=== PATIENT | male | born 1960 | race Caucasian/White ===

== ENCOUNTER 2024-04-18 07:43 | Outpatient (OUT) | payer MEDICARE, OTHER, SELFPAY ==
[2024-04-18 09:24] LABS: Prostate Specific Antigen Scrn 0.93 ng/mL (<=4.00)
== END 2024-04-18 07:44 | disposition home or self-care (01) ==
LOC: LAB 04-19 07:43
PROVIDERS: PCP Internal Medicine; Visit Provider Internal Medicine
DX: Z12.5 Encounter for screening for malignant neoplasm of prostate (principal)
CPT/HCPCS: 36415; G0103

== ENCOUNTER 2024-05-18 10:04 | Outpatient (OUT) | payer MEDICARE, OTHER, SELFPAY ==
--- NOTE | 2024-05-18 10:07 | CT_ITS ---
[address] [address] Patient Name: MIGUEL VENEGAS MRN: [id number] date: 1960 Sex: M Assigned Patient Location: CT Current Patient Location: Accession/Order Number: [id number] Exam Date: 05/18/2024 10:15 Report Date: 05/19/2024 11:27 At the request of: [age] YO Procedure: CT lung screening low-dose EXAMINATION: CT lung screening low-dose HISTORY: Nicotine Dependence F17.210 COMPARISON: CT lung cancer screening 04/24/2023 TECHNIQUE: Axial, Coronal, and Sagittal images were created without the administration of IV contrast material. Dose reduction techniques were achieved by using automated exposure control and/or adjustment of mA and/or kV according to patient size and/or use of iterative reconstruction technique. FINDINGS: LUNGS: No visible pulmonary disease. Stable apical pleural scarring. No suspicious nodules. PLEURA: No mass, effusion, or pneumothorax. VASCULATURE: No abnormality. ANAMIKA: No mass or pathologic adenopathy. MEDIASTINUM: No mass or pathologic adenopathy. CARDIAC: No enlargement, pericardial thickening, or pericardial effusion. Coronary Artery calcifications: AORTA: No aneurysm or dissection. CHEST WALL: No mass or axillary adenopathy BONES: No bone lesion or fracture. LIMITED ABDOMEN: No suspicious findings. Limited images of the upper abdomen. OTHER: Negative. CT/CT lung screening low-dose IMPRESSION: 1. Lung-RADS Category 1 Negative. No nodules and definitely benign nodules. Continue annual screening with LDCT in 12 months. Electronically authenticated by: DRAGAN PORTILLO Date: 05/19/2024 11:27
--- OUTSIDE RECORDS SUMMARY | 2024-05-18 10:22 | XMS_ITS | CCD ---
Author Organization [facility] Care Team Providers Care Environmental Projects Advisor Name Role Phone HUGH BUSCH Admitting Unavailable HUGH BUSCH Attending Unavailable WANDY MAGANA Referring Unavailable JERSEY WHITTAKER Primary Care Unavailable [place] Procedure Practitioner Unavailab HUGH Morgan Surgeon Unavailable UGO, ALISON Admitting Unavailable PANFILO, JERSEY Primary Care Unavailable SELF, REFERRED Referring Unavailable ADOLFO LEVINE Attending Unavailable PANFILO, JERSEY Primary Care Physician Panfilo, [place] Unavailable PANFILO, DR LAYNE Admitting Unavailable BALL, DR LAYNE Attending Unavailable BALL, DR LAYNE Consulting Unavailable BALL, DR LAYNE Primary Care Unavailable ZIEBER, DR DRAGAN Dobson Consulting Unavailable NILL ., DR HOGAN Attending Unavailable ZIEBER, DR DRAGAN Dobson Consulting Unavailable BALL, DR LAYNE Primary Care Unavailable NILL ., DR HOGAN Admitting Unavailable NILL ., DR HOGAN Consulting Unavailable BOOKER, MATTHEW Consulting Unavailable REQUEST, DR HANSEN LISTED Admitting Unavaila ble REQUEST, DR HANSEN LISTED Attending Unavaila ble BALL, DR LAYNE Consulting Unavailable BALL, DR LAYNE Primary Care Unavailable BALL, DR LAYNE Attending Unavailable BALL, DR LAYNE Consulting Unavailable BALL, DR LAYNE Primary Care Unavailable BALL, DR LAYNE Admitting Unavailable NILL ., DR HOGAN Consulting Unavailable NILL ., DR HOGAN Admitting Unavailable BALL, DR LAYNE Primary Care Unavailable NILL ., DR HOGAN Attending Unavailable AGUBOSIM, MARQUISE Consulting Unavailable BRIE, TIN Consulting Unavailable LANGENBERG, TWILA Consulting Unavailable Benson, Stephy Unavailable Allergies Allergy Classification Reported Allergen(s) Allergy Type Date of Onset Reaction(s) Facility (1 source) patient allergy list reviewed by nurse or physicia Propensity to adverse reactions 4 Comment:Done [employer] Other Medications Current Medications Medication Drug Class(es) Dates Sig (Normalized) Sig (Original) amoxicillin 875 mg / clavulanate 125 mg oral tablet (2 sources) Penicillin-class Antibacterial Start: 02-19-2023 take 1 tablet by mouth every twelve hours Amoxicillin-Pot Clavulanate 875-125 MG 1 tablet Orally every 12 hrs for 7 Jan, Active doxycycline hyclate 100 mg oral capsule (2 sources) Tetracycline-class Drug Start: 02-13-2023 take 1 capsule by mouth twice daily Doxycycline Hyclate 100 MG 1 capsule Orally twice daily for 7 days Jan, Active [place] (No Known Home Meds) (1 source) Start: 04-15-2024 [place] (No Known Home Meds) Active April 15, 2024 12:00am Completed/Discontinued Medications Medication Drug Class(es) Dates Sig (Normalized) Sig (Original) tamsulosin hydrochloride 0.4 mg oral capsule (3 sources) alpha-Adrenergic [place] Start: 04-13-2024 End: 04-15-2024 take 0.4 mg by mouth once daily Tamsulosin Discontinued 0.4 MG PO Daily April 13, 2024 12:00am April 15, 2024 11:05am take 1 capsule by mo ut every twenty-four hours Tamsulosin HCl 0.4 MG 1 capsule Orally Once a day Active Problems Active Problems Problem Classification Problem Date Documented Da te Episodic/Chronic Abdominal hernia (4 sources) Ventral incisional hernia; Translations: [Incisional hernia] 04-25-2020 Episodic Acute posthemorrhagic anemia (4 sources) Acute posthemorrhagic anemia; Translations: [Acute posthemorrhagic anemia] 04-25-2020 Episodic Coagulation and hemorrhagic disorders (4 sources) Protein C deficiency disease; 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 Chronic Diverticulosis and diverticulitis (1 source) Diverticulosis of large intestine without perforation or abscess without bleeding; Translations: [DVRTCLOS LG INT NO PERF/ABSC W/O BL] Onset: 07-25-2022 Chronic Hyperplasia of prostate (8 sources) Nocturia due to benign prostatic hypertrophy; Translations: [Lower urinary tract symptoms due to benign prostatic hypertrophy] Onset: 09-02-2017 04-24-2020 Chronic Immunizations and screening for infectious disease (1 source) Vaccination given; Translations: [Encounter for immunization] Episodic Miscellaneous mental health disorders (1 source) Psychosexual dysfunction associated with inhibited sexual excitement; Translations: [Psychosexual dysfunction with inhibited sexual excitement] Onset: 04-12-2015 Chronic Osteoarthritis (3 sources) Bilateral arthritis of knees; Translations: [Bilateral primary osteoarthritis of knee] Chronic Other aftercare (1 source) Long-term current use of drug therapy; Translations: [Other intermediate card tender (current) drug therapy] Episodic Other gastrointestinal disorders (3 sources) Abnormal feces; Translations: [Other fecal abnormalities] Episodic Other male genital disorders (1 source) Impotence of organic origin; Translations: [Male erectile dysfunction, unspecified] Onset: 04-12-2015 Chronic Other non-traumatic joint disorders (1 source) Arthritis of knee 04-24-2020 Chronic Other nutritional; endocrine; and metabolic disorders (1 source) Body mass index 25-29 - overweight 06-04-2022 Episodic Other nutritional; endocrine; and metabolic disorders (1 source) Overweight; Translations: [Overweight] Episodic Other screening for suspected conditions (not mental disorders or infectious disease) (2 sources) Stool DNA-based colorectal cancer screening positive; Translations: [Encounter for screening for malignant neoplasm of prostate] 06-04-2022 Episodic Other skin disorders (1 source) Hypertrophic condition of skin; Translations: [Other hypertrophic disorders of the skin] Episodic Peripheral and visceral atherosclerosis (1 source) Acute vascular insufficiency of intestine 04-24-2020 Chronic Peripheral and visceral atherosclerosis (3 sources) Acute mesenteric arterial occlusion; Translations: [Acute vascular insufficiency of intestine] Onset: 09-30-2019 04-24-2020 Episodic Phlebitis; thrombophlebitis and thromboembolism (7 sources) Portal vein thrombosis; Translations: [Splenic vein thrombosis] Onset: 05-30-2020 04-24-2020 Episodic Skin and subcutaneous tissue infections (4 sources) Localized infection of skin AND/OR subcutaneous tissue; Translations: [Local infection of the skin and subcutaneous tissue, unspecified] Episodic Spondylosis; intervertebral disc disorders; other back problems (6 sources) Lumbar spondylosis; Translations: [Spondylosis without myelopathy or radiculopathy, lumbar region] 04-24-2020 Chronic Substance-related disorders (14 sources) Nicotine dependence; Translations: [Nicotine dependence, cigarettes, uncomplicated] Onset: 07-25-2022 04-25-2020 Chronic Unclassified (1 source) CONTACT W/AND (SUSP) EXPOS COVID-19; Translations: [CONTACT W/AND (SUSP) EXPOS COVID-19] Onset: 07-22-2022 Past or Other Problems Problem Classification Problem Date Documented Da te Episodic/Chronic Fluid and electrolyte disorders (1 source) Hypo-osmolality and or hyponatremia; Translations: [Hypo-osmolality and hyponatremia] Onset: 03-12-2019 Episodic Other and unspecified benign neoplasm (1 source) Polyp of colon; Translations: [POLYP OF COLON] Onset: 07-25-2022 Episodic Other connective tissue disease (1 source) Plantar fascial fibromatosis; Translations: [Plantar fascial fibromatosis] Onset: 09-02-2017 Episodic Other gastrointestinal disorders (5 sources) Other fecal abnormalities; Translations: [OTHER FECAL ABNORMALITIES] Onset: 07-22-2022 Episodic Other lower respiratory disease (1 source) Wheezing; Translations: [WHEEZING] Onset: 07-22-2022 Episodic Other non-traumatic joint disorders (1 source) Arthralgia of the lower leg; Translations: [Pain in right knee] Onset: 01-11-2018 Episodic Other skin disorders (2 sources) Sebaceous cyst; Translations: [Sebaceous cyst] Onset: 01-11-2018 Episodic Residual codes; unclassified (2 sources) Tobacco user; Translations: [Nondependent tobacco use disorder] Onset: 07-06-2015 Episodic Residual codes; unclassified (1 source) Requires influenza virus vaccination; Translations: [Need for prophylactic vaccination and inoculation, Influenza] Onset: 09-02-2017 Episodic Sprains and strains (1 source) Sprain of medial collateral ligament of knee; Translations: [Sprain of medial collateral ligament of right knee, initial encounter] Onset: 01-11-2018 Episodic Results Test Name Value Interpretation Reference Range Facility CT LUNG CANCER SCREENINGon 0 04-24-2023 CT LUNG CANCER SCREENING EXAMINATION: CT LUNG CANCER SCREENING HISTORY: Tobacco dependence caused by cigarettes COMPARISON: No relevant comparison available. TECHNIQUE: Axial, Coronal, and Sagittal images were created without the administration of IV contrast material. Dose reduction techniques were achieved by using automated exposure control and/or adjustment of mA and/or kV according to patient size and/or use of iterative reconstruction technique. FINDINGS: LUNGS: No visible pulmonary disease. PLEURA: Mild biapical pleural scarring. No pneumothorax or pleural effusion. VASCULATURE: No abnormality. ANAMIKA: No mass or pathologic adenopathy. MEDIASTINUM: No mass or pathologic adenopathy. CARDIAC: No enlargement, pericardial thickening, or significant calcification. AORTA: No aneurysm or dissection. CHEST WALL: No mass or axillary adenopathy BONES: No bone lesion or fracture. LIMITED ABDOMEN: No suspicious findings. Limited images of the upper abdomen. OTHER: Negative. IMPRESSION: 1. Lung-RADS Category 1 Negative. No nodules and definitely benign nodules. Continue annual screening with LDCT in 12 months. Electronically authenticated by: DRAGAN PORTILLO Date: 2023-04-24 10:47 Normal [facility] CBC AUTO DIFFon 04-16-2023 BASO # 0.0 103/ul Normal 0.0-0.1 [facility] Comment on above: Performed By: #### D ATCBC #### [facility] [address] [place] [address] Dr. Mayra Zuluaga Basophils/100 WBC (Bld) 0.6 % Normal 0.2-2.0 [facility] Comment on above: Performed By: #### D ATCBC #### [facility] [address] [place] [address] Dr. Mayra Zuluaga EO # 0.1 103/ul Normal 0.0-0.7 [facility] Comment on above: Performed By: #### D ATCBC #### [facility] [address] [place] [address] Dr. Mayra Zuluaga Eosinophils/100 WBC (Bld) 2.1 % Normal 0.9-7.0 [facility] Comment on above: Performed By: #### D ATCBC #### [facility] [address] [address] [address] Mayra Zuluaga Erythrocyte distribution width (RBC) [Ratio] 13.2 % Normal 11.0-15.0 [facility] Comment on above: Performed By: #### D ATCBC #### [facility] [address] [place] [address] Dr. Mayra Zuluaga Hematocrit (Bld) [Volume fraction] 45.2 % Normal 42.0-54.0 [facility] Comment on above: Performed By: #### D ATCBC #### [facility] [address] [place] [address] Dr. Mayra Zuluaga Hemoglobin (Bld) [Mass/Vol] 15.0 g/dL Normal 14.0-18.0 [facility] Comment on above: Performed By: #### D ATCBC #### [facility] [address] [place] [address] Dr. Mayra Zuluaga IG # 0.02 10e3/ul Normal 0.00-0.03 [facility] Comment on above: Performed By: #### D ATCBC #### [facility] [address] [address] [address] Mayra Zuluaga IG % 0.3 % Normal 0.0-0.5 [facility] Comment on above: Performed By: #### D ATCBC #### [facility] [address] [place] [address] Dr. Mayra Zuluaga LYMPH # 2.0 103/ul Normal 1.2-3.8 [facility] Comment on above: Performed By: #### D ATCBC #### [facility] [address] [place] [address] Dr. Mayra Zuluaga Lymphocytes/100 WBC (Bld) 32.3 % Normal 20.5-60.0 [facility] Comment on above: Performed By: #### D ATCBC #### [facility] [address] [place] [address] Dr. Mayra Zuluaga MCH (RBC) [Entitic mass] 31.0 pg Normal 25.9-34.0 [facility] Comment on above: Performed By: #### D ATCBC #### [facility] [address] [place] [address] Dr. Mayra Zuluaga MCHC (RBC) [Mass/Vol] 33.2 g/dL Normal 29.9-35.2 [facility] Comment on above: Performed By: #### D ATCBC #### [facility] [address] [place] [address] Dr. Mayra Zuluaga MCV (RBC) [Entitic vol] 93.4 fL Normal 80.0-94.0 [facility] Comment on above: Performed By: #### D ATCBC #### [facility] [address] [place], [place] [id number] Dr. Mayra Zuluaga MONO # 0.9 103/ul Critically high 0.3-0.8 [facility] Comment on above: Performed By: #### D ATCBC #### [facility] [address] [place] [address] Dr. Mayra Zuluaga Monocytes/100 WBC (Bld) 13.9 % Critically high 1.7-12.0 [facility] Comment on above: Performed By: #### D ATCBC #### [facility] [address] [place] [address] Dr. Mayra Zuluaga NEUT # 3.2 103/ul Normal 1.4-6.5 [facility] Comment on above: Performed By: #### D ATCBC #### [facility] [address] [place] [address] Dr. Mayra Zuluaga Neutrophils/100 WBC (Bld) 50.8 % Normal 43.0-75.0 [facility] Comment on above: Performed By: #### D ATCBC #### [facility] [address] [place] [address] Dr. Mayra Zuluaga Platelet mean volume (Bld) [Entitic vol] 9.5 fL Normal 9.5-13.5 [facility] Comment on above: Performed By: #### D ATCBC #### [facility] [address] [place] [address] Dr. Mayra Zuluaga PLT 215 103/ul Normal 150-450 [facility] Comment on above: Performed By: #### D ATCBC #### [facility] [address] [place] [address] Dr. Mayra Zuluaga RBC 4.84 106/ul Normal 4.70-6.10 [facility] Comment on above: Performed By: #### D ATCBC #### [facility] [address] [place] [address] Dr. Mayra Zuluaga WBC 6.3 103/ul Normal 4.0-11.0 [facility] Comment on above: Performed By: #### D ATCBC #### [facility] [address] [place] [address] Dr. Mayra Zuluaga AMINATA- BMP WITH LIPIDon 2022 Anion gap [Moles/Vol] 12.5 mmol/L Normal [facility] Comment on above: Performed By: #### D ATBMP, DATPSA #### [facility] [address] [place] [address] Dr. Mayra Zuluaga Calcium [Mass/Vol] 8.6 mg/dL Normal 8.5-10.1 [facility] Comment on above: Performed By: #### D ATBMP, DATPSA #### [facility] [address] [address] [address] Mayra Zuluaga Chloride [Moles/Vol] 103 mmol/L Normal 98-107 [facility] Comment on above: Performed By: #### D ATBMP, DATPSA #### [facility] [address] [place] [address] Dr. Mayra Zuluaga Cholesterol [Mass/Vol] 178 mg/dL Normal <=200 [facility] Comment on above: Performed By: #### D ATP, DATPSA #### [facility] [address] [address] [address] Mayra Zuluaga Cholesterol in HDL [Mass/Vol] 62 mg/dL Critically high 40-60 [facility] Comment on above: Performed By: #### D ATBMP, DATPSA #### [facility] [address] [place] [address] Dr. Mayra Zuluaga Cholesterol in LDL [Mass/Vol] 108.8 mg/dL Normal [facility] Comment on above: Performed By: #### D ATBMP, DATPSA #### [facility] [address] [place] [address] Dr. Mayra Zuluaga CO2 [Moles/Vol] 28.9 mmol/L Normal 21.0-32.0 [facility] Comment on above: Performed By: #### D ATBMP, DATPSA #### [facility] [address] [place] [address] Dr. Mayra Zuluaga Creatinine [Mass/Vol] 0.84 mg/dL Normal 0.70-1.30 [facility] Comment on above: Performed By: #### D ATBMP, DATPSA #### [facility] [address] [address] [address] Mayra Zuluaga EGFR-AF KENYAN >60 Normal >=60 [facility] Comment on above: Performed By: #### D ATBMP, DATPSA #### [facility] [address] [address] [address] Mayra Zuluaga EGFR-NON AF KENYAN >60 Normal >=60 [facility] Comment on above: Performed By: #### D ATBMP, DATPSA #### [facility] [address] [address] [address] Mayra Zuluaga Glucose [Mass/Vol] 114 mg/dL Critically high 74-106 [facility] Comment on above: Performed By: #### D ATBMP, DATPSA #### [facility] [address] [address] [address] Mayra Zuluaga HDL NORMAL > or = 60 mg/dl - LO W CARDIOVASCULAR RISK <40 mg/dl - HIGH CARDIOVASCULAR RISK Normal [facility] Comment on above: Performed By: #### D ATP, DATPSA #### [facility] [address] [address] [address] Mayra Zuluaga LDL CALC NORMAL SEE BELOW Normal [facility] Comment on above: Result Comment: <100 mg/dl OPTIMAL 100 - 129 mg/dl NEAR OR ABOVE OPTIMAL 130 - 159 mg/dl BORDERLINE HIGH 160 - 189 mg/dl HIGH >190 mg/dl VERY HIGH Performed By: #### D ATBMP, DATPSA #### [facility] [address] [address] [address] Mayra Zuluaga Potassium [Moles/Vol] 4.4 mmol/L Normal 3.5-5.1 [facility] Comment on above: Performed By: #### D ATBMP, DATPSA #### [facility] [address] [address] [address] Mayra Zuluaga Sodium [Moles/Vol] 140 mmol/L Normal 136-145 [facility] Comment on above: Performed By: #### D ATBMP, DATPSA #### [facility] [address] [address] [address] Mayra Zuluaga Triglyceride [Mass/Vol] 36 mg/dL Normal <=150 [facility] Comment on above: Performed By: #### D ATBMP, DATPSA #### [facility] [address] [address] [address] Mayra Zuluaga Urea nitrogen [Mass/Vol] 12.0 mg/dL Normal 7.0-18.0 [facility] Comment on above: Performed By: #### D ATBMP, DATPSA #### [facility] [address] [address] [address] Mayra Zuluaga Urea nitrogen/Creatinine [Mass ratio] 14.3 mg/mg Normal [facility] Comment on above: Performed By: #### D ATBMP, DATPSA #### [facility] [address] [address] [address] Mayra Zuluaga VLDL CALC 7.2 mg/dL Normal [facility] Comment on above: Performed By: #### D ATBMP, DATPSA #### [facility] [address] [address] [address] Mayra Zuluaga Ambulatory Visit Summaryon 0 08-05-2022 Ambulatory Visit Summary MIGUEL BARON :1960 Visit Date:08/05/2022 Ambulatory Visit Instructions Your Care Team Attending Physician - Edison SALEH MD Primary Care Physician - JERSEY WHITTAKER DO Procedures Performed Colonoscopy (07/23/2022), Colonoscopy (03/16/2009), Excision of cyst, Exploratory laparotomy, Repair of ventral hernia. Allergies No Known Allergies No Known Medication Allergies Problems Ongoing - Any problem that you are currently receiving treatment for. Acute mesenteric arterial occlusion Acute mesenteric ischemia Anemia due to blood loss, acute Arthritis of both knees BMI 26.0-26.9,adult BPH associated with nocturia Cigarette nicotine dependence Incisional hernia of anterior abdominal wall without obstruction or gangrene Lumbar spondylosis Portal vein thrombosis Positive colorectal cancer screening using Cologuard test Protein C deficiency Splenic vein thrombosis Tobacco use Normal [facility] General Surgery Office/Clini c Noteon 08-05-2022 General Surgery Office/Clinic Note Chief Complaint colonoscopy follow up HPI Staff 13 days post colonoscopy with sigmoid and rectal polypectomies. History of Present Illness s/p colonoscopy due to positive Cologuard; had removal of hyperplastic sigmoid polyp and 1.5 cm tubular adenoma from rectum, area tattooed; doing well, small amount of blood with first bm, none since; no abdominal pain. Review of Systems ROS - Provider Constitutional: no fever, no sweats, no weight loss. Eyes: no glasses, no blurred vision, no visual loss. ENMT: no dentures, no hoarseness, no swallowing difficulties, no hearing loss, no ear infection(s), no nose bleeds. Cardiovascular: normal blood pressure, no chest pain, regular heartbeat, no heart murmur. Respiratory: no shortness of breath, no cough, no asthma, no wheezing. Gastrointestinal: no nausea, no vomiting, no diarrhea, no constipation, no blood in stool, no change in bowel habits, no abdominal pain, no hepatitis. Genitourinary: no kidney stones, no urine infection, no dysuria. Musculoskeletal: no pain, no weakness. Skin: no changing moles, no rash, no skin lumps. Neurologic: no seizures, no epilepsy, no headache. Psychiatric: no emotional or psychiatric problem. Heme/Lymph: no bleeding problems, no anemia, no blood clots, no transfusions. Allergy/Immunologic: no swollen lymph nodes/glands, no IV drug abuse. Other: Additional ROS info: Except as noted in the above Review of Systems and in the History of Present Illness, all other systems have been reviewed and are negative or noncontributory. Assessment/Plan 1. Tubular adenoma of rectum (D12.8: Benign neoplasm of rectum) plan surveillance colonoscopy in 3 years, call sooner if problems/questions. 2. Hyperplastic polyp of sigmoid colon (K63.5: Polyp of colon) see # 1 Follow-up No qualifying data available Problem List/Past Medical History Ongoing Acute mesenteric arterial occlusion Acute mesenteric ischemia Anemia due to blood loss, acute Arthritis of both knees BMI 26.0-26.9,adult BPH associated with nocturia Cigarette nicotine dependence Hyperplastic polyp of sigmoid colon Incisional hernia of anterior abdominal wall without obstruction or gangrene Lumbar spondylosis Portal vein thrombosis Positive colorectal cancer screening using Cologuard test Protein C deficiency Splenic vein thrombosis Tobacco use Tubular adenoma of rectum Historical No qualifying data Procedure/Surgical History Colonoscopy (07/23/2022), Colonoscopy (03/16/2009), Excision of cyst, Exploratory laparotomy, Repair of ventral hernia. Medications No active medications Allergies No Known Allergies No Known Medication Allergies Social History Alcohol Current, Beer, Daily, 04/25/2020 Substance Abuse - Denies Substance Abuse, 04/25/2020 Tobacco 10 or more cigarettes (1/2 pack or more)/day in last 30 days Tobacco Use:. Never Smokeless Tobacco Use:. Cigarettes, Yes, 06/04/2022 Family History Dementia: Mother. Hypertension: Mother. Primary malignant neoplasm of lung: Father. [facility] Comment on above: Result Comment: Elec tronically Signed By: DELFINO DALE, Edison Ernandez\Date and Time Signed: 08/05/22 13:21 EDT Reminderson 08-05-2022 Reminders - From: Shanna Moreno LPN To: GSN - Clinical; Sent: 08/05/2022 13:45:08 EDT Show up: 06/22/2025 07:00:00 EDT Subject: colonoscopy recall Due Date/Time: 07/23/2025 07:00:00 EDT Reminder/Recall Patient is due for colonoscopy 07/23/2025 due to history of colonic polyps. [facility] Pathology Noteon 07-25-2022 Pathology Note [id number]#1.0 0CD:127 [facility] Outside Colonoscopyon 2021 Outside Colonoscopy [id number] 0CD:127 [facility] Lab Reportson 07-22-2022 Lab Reports [id number] CD:127 [facility] RAD - MISCon 07-22-2022 RAD - MISC [id number] 0CD:127 [facility] Covid-19 PCR (CVDTB)on 06-30 SARS-CoV-2 (COVID-19) RNA DOROTHY+probe Ql (Unsp spec) Not detected Normal NOT DETECTED [facility] Comment on above: Result Comment: This test is not yet approved or cleared by the [place] FDA. When there are no FDA-approved or cleared tests available, and other criteria are met, FDA can make tests available under an emergency access mechanism called an Emergency Use Authorization (EUA). The EUA for this test is supported by the [place] of Health and Human Service's (HHS's) declaration that circumstances exist to justify the emergency use of in vitro diagnostics for the detection and/or diagnosis of the virus that causes COVID-19. This EUA will remain in effect (meaning this test can be used) for the duration of the COVID-19 declaration justifying emergency of IVDs, unless it is terminated or revoked by FDA (after which the test may no longer be used). When diagnostic testing is negative, the possibility of a false negative should be considered in the context of a patient's recent exposures and the presence of clinical signs and symptoms consistent with SARS-CoV-2. Performed By: #### [facility] #### [facility] Laboratory [address] [place] [address] Dr. Mayra Zuluaga Consent for Procedure/Surger yon 06-05-2022 Consent for Procedure/Surgery [id number] 0CD:127 [facility] Ambulatory Visit Summaryon 0 06-04-2022 Ambulatory Visit Summary MIGUEL BARON :1960 Visit Date:06/04/2022 Ambulatory Visit Instructions Your Care Team Attending Physician - Edison SALEH MD Primary Care Physician - JERSEY WHITTAKER DO Procedures Performed Colonoscopy (03/16/2009), Excision of cyst, Exploratory laparotomy, Repair of ventral hernia. Discharge Vitals Heart Rate (Peripheral) 74 Respiratory Rate 16 Blood Pressure 124/84 Height 179 cm Height 179.0 cm Weight 85.5 kg Weight 85.5 kg BMI 26.68 Allergies No Known Allergies No Known Medication Allergies Problems Ongoing - Any problem that you are currently receiving treatment for. Acute mesenteric arterial occlusion Acute mesenteric ischemia Anemia due to blood loss, acute Arthritis of both knees BMI 26.0-26.9,adult BPH associated with nocturia Cigarette nicotine dependence Incisional hernia of anterior abdominal wall without obstruction or gangrene Lumbar spondylosis Portal vein thrombosis Positive colorectal cancer screening using Cologuard test Protein C deficiency Splenic vein thrombosis [facility] Physician Referralon 022 Physician Referral [id number] 0CD:127 Normal [facility] Surgical Pathology Depar tmenton 01-30-2022 [facility] Surgical Pathology Department Name MIGUEL BARON Pathologist: DOMINGA AGRAWAL DMD Date of Procedure: 01/30/2022 Date Received: 02/03/2022 Date Reported 02/06/2022 Submitting Physician: REMIGIO MENDOZA DDS Location: [facility] Other External # FINAL DIAGNOSIS A. RIGHT SOFT PALATAL MUCOSA, INCISIONAL BIOPSY: -- MILD EPITHELIAL DYSPLASIA (MULTIPLE LEVELS EXAMINED) ICD-10/CPT: K13.21/17461 Electronically Signed Out By DOMINGA AGRAWAL DMD/IJS By the signature on this report, the individual or group listed as making the Final Interpretation/Diagnos is certifies that they have reviewed this case. Microscopic Description: The sections show a fragment of squamous mucosa notable for the presence of keratinizing dysplasia. This is characterized by hyperkeratosis with hypergranulosis, epithelial atrophy, basal cell hyperplasia, increased nuclear to cytoplasmic ratio, and nuclear hyperchromasia. These changes are largely restricted to the basal third of the epithelium. The lamina propria consists of densely collagenous fibrovascular tissue with mild chronic inflammation and no evidence of invasive carcinoma. Clinical History: The lesion was biopsied from the right soft palate where it measures 0.5 x 0.3 cm, is white, and has been present for an unknown duration. Clinical impression: Hyperkeratosis versus dysplasia. Specimens Submitted As: A: RIGHT SOFT PALATE Gross Description: Received in formalin, labeled with the patient's name and hospital number and right soft palate , is a calvin-brown soft tissue fragment measuring 0.5 x 0.3 x 0.3 cm. The apparent deep aspect is inked blue. The specimen is submitted in toto in 1 cassette. AMANDEEP jlm/02/03/2022 [facility] Department of Pathology [address] [place] [address] Normal [facility] Comment on above: Performed By: #### [facility] #### [facility] Surgical Pathology Department [address] [facility] [address] BASIC METABOLIC PANELon - Calcium [Mass/Vol] 9.6 mg/dL Normal 8.6-10.3 [facility] Comment on above: Performed By: #### 1 0054 #### [facility] [address] [place] [address], [place] Chloride [Moles/Vol] 100 mmol/L Normal 98-107 [facility] Comment on above: Performed By: #### 1 0054 #### [facility] [address] [place] [address], [place] CO2 [Moles/Vol] 25 mmol/L Normal 21-31 [facility] Comment on above: Performed By: #### 1 0054 #### [facility] [address] [place] [address], [place] Creatinine [Mass/Vol] 0.62 mg/dL Low 0.70-1.30 [facility] Comment on above: Performed By: #### 1 0054 #### [facility] [address] [place] [address], [place] GFR/1.73 sq M predicted among blacks MDRD (S/P/Bld) [Vol rate/Area] mL/min/{1.73_m2} Normal >60 [facility] Comment on above: Performed By: #### 1 0054 #### [facility] [address] [place] [address], [place] GFR/1.73 sq M predicted among non-blacks MDRD (S/P/Bld) [Vol rate/Area] mL/min/{1.73_m2} Normal >60 [facility] Comment on above: Performed By: #### 1 0054 #### [facility] [address] [facility] [place] [address], [facility] Glucose [Mass/Vol] 97 mg/dL Normal 70-100 [facility] Comment on above: Performed By: #### 1 0054 #### [facility] [address] [facility] [address], [facility] Potassium [Moles/Vol] 3.9 mmol/L Normal 3.5-5.1 [facility] Comment on above: Performed By: #### 1 0054 #### [facility] [address] [facility] [place] [address], [facility] Sodium [Moles/Vol] 131 mmol/L Low 136-145 [facility] Comment on above: Performed By: #### 1 0054 #### [facility] [address] [facility]. [address] Urea nitrogen [Mass/Vol] 5 mg/dL Low 7-25 [facility] Comment on above: Performed By: #### 1 0054 #### [facility] [address] [facility] [place] [address], [facility] CBC W/DIFFon 01-16-2020 ABS BASOPHILS 0.0 10*3/uL Normal 0.0-0.2 The [facility] Comment on above: Performed By: #### 1 0054 #### [facility] [address] [facility] [place] [address], [facility] ABS IMM GRANS 0.0 10*3/uL Normal 0.0-0.2 [facility] Comment on above: Performed By: #### 1 0054 #### [facility] [address] [place] [address], [facility] ABS NEUTROPHILS 5.5 10*3/uL Normal 1.6-7.6 The [facility] Comment on above: Performed By: #### 1 0054 #### [facility] [address] [place] [address], [facility] Basophils/100 WBC (Bld) 0.4 % Normal 0.0-1.0 [facility] Comment on above: Performed By: #### 1 0054 #### [facility] [address] [place] [address], [facility] Eosinophils (Bld) [#/Vol] 0.1 10*3/uL Normal 0.0-0.5 [facility] Comment on above: Performed By: #### 1 0054 #### [facility] [address] [place] [address], [facility] Eosinophils/100 WBC (Bld) 1.0 % Normal 0.0-6.0 [facility] Comment on above: Performed By: #### 1 0054 #### [facility] [address] Erythrocyte distribution width (RBC) [Ratio] 15.0 % Normal 11.5-15.0 [facility] Comment on above: Performed By: #### 1 0054 #### [facility] [address] Hematocrit (Bld) [Volume fraction] 41.1 % Normal 39.0-50.0 [facility] Comment on above: Performed By: #### 1 0054 #### [facility] [address] Hemoglobin (Bld) [Mass/Vol] 13.2 g/dL Normal 13.0-17.0 [facility] Comment on above: Performed By: #### 1 0054 #### [facility] [address] [place] [address], [facility] IMMATURE GRANS 0.2 % Normal 0.0-1.0 [facility] Comment on above: Performed By: #### 1 0054 #### [facility] [address] Lymphocytes (Bld) [#/Vol] 3.1 10*3/uL Normal 1.2-4.0 [facility] Comment on above: Performed By: #### 1 0054 #### [facility] [address] [place] [address], [facility] Lymphocytes/100 WBC (Bld) 31.1 % Normal 20.0-45.0 [facility] Comment on above: Performed By: #### 1 0054 #### [facility] [address] [place] [address], [facility] MCH (RBC) [Entitic mass] 27.9 pg Normal 27.0-33.0 [facility] Comment on above: Performed By: #### 1 0054 #### [facility] [address] MCHC (RBC) [Mass/Vol] 32.1 g/dL Normal 32.0-35.0 [facility] Comment on above: Performed By: #### 1 0054 #### [facility] [address] [place] [address], [facility] MCV (RBC) [Entitic vol] 86.9 fL Normal 82.0-98.0 [facility] Comment on above: Performed By: #### 1 0054 #### [facility] [address] [place] [address], [facility] Monocytes (Bld) [#/Vol] 1.2 10*3/uL High 0.1-1.0 [facility] Comment on above: Performed By: #### 1 0054 #### [facility] [address] [place] [address], [facility] MONOS 11.7 % Normal 5.0-12.0 [facility] Comment on above: Performed By: #### 1 0054 #### [facility] [address] [place] [address], [facility] Neutrophils/100 WBC (Bld) 55.6 % Normal 40.0-72.0 [facility] Comment on above: Performed By: #### 1 0054 #### [facility] [address] [facility] [place] [address], [facility] Nucleated RBC/100 WBC (Bld) [Ratio] 0 % Normal 0-0 [facility] Comment on above: Performed By: #### 1 0054 #### [facility] [address] [facility] [place] [address], [facility] PLAT CNT 296 10*3/uL Normal 150-400 [facility] Comment on above: Performed By: #### 1 0054 #### [facility] [address] [place] [address], [facility] RBC (Bld) [#/Vol] 4.73 10*6/uL Normal 4.20-5.70 The [facility] Comment on above: Performed By: #### 1 0054 #### [facility] [address] [place] [address], [facility] WBC (Bld) [#/Vol] 9.81 10*3/uL Normal 4.00-10.60 The [facility] Comment on above: Performed By: #### 1 0054 #### [address] ABDOMEN AND PELVIS W IV A ND ORAL CONTRASTon 01-16-2020 CT ABDOMEN AND PELVIS W IV AND ORAL CONTRAST [facility] Department of Radiology [address] [place] [address] ======== Patient Name: MIGUEL BARON : 1960 Sex: M Age: Race: White Pt. Location: [facility] Patient Status: E Ordered Date: 01/16/2020 12:10:00 PM Completed Date: 01/16/2020 01:41 PM Requesting Provider: ADOLFO LEVINE Attending Provider: ALISON ARIZMENDI Report Copy To: Signs & Symptoms: Abscess History: See Comments Comments: Fistula, ed abdominal ct Exam: CT ABDOMEN AND PELVIS W IV AND ORAL CONTRAST ======== CT ABDOMEN AND PELVIS W IV AND ORAL CONTRAST 01/16/2020 1:41 PM CLINICAL INDICATIONS: Abscess TECHNOLOGIST COMMENTS: original bowel surg 10-28-2019 today incision started leaking pus looking fluid QUESTION FOR RADIOLOGIST: Fistula, ed abdominal ct TECHNIQUE: CT abdomen and pelvis with intravenous contrast. Multiplanar reformats were performed. Contrast: Contrast: OMNIPAQUE 350 (LOCM), 100 milliliter, Intravenous Protocol: Axial CT images from the lung bases to the pubic symphysis were performed following the uneventful administration of intravenous contrast. COMPARISON: CT abdomen and pelvis November 05, 2019. FINDINGS: The lung bases are unremarkable. The liver, spleen, gallbladder, adrenals and pancreas appear unremarkable. The portal vein appears patent. The kidneys concentrate contrast bilaterally with no focal lesion other than a small presumed cyst in the right lower pole. Oral contrast has reached the rectum The stomach, small bowel, and appendix appear unremarkable. Scattered diverticula present in sigmoid. Wall thickening is suggested in the sigmoid colon. The bladder appears unremarkable. The prostate is enlarged measuring 6.8 cm transversely. No free air or free fluid is appreciated. The aorta is intermittently calcified but nonaneurysmal. No retroperitoneal adenopathy is seen. Increased attenuation is noted in the midline external to the anterior abdominal fascia in the region of the patient's prior midline skin incision. The study viewed at bone window shows disc space degeneration at L2-3 and L5-S1. IMPRESSION: * Increased attenuation in the subcutaneous adipose tissue at the level of the patient's midline incision may represent postop seroma or superficial abscess. * No communication with underlying bowel identified. * Wall thickening the sigmoid colon may represent sequela of diverticular disease. * Enlarged prostate. All CT scans at this facility use dose modulation, iterative reconstruction, and/or weight based dosing when appropriate to reduce radiation dose to as low as reasonably achievable Electronically signed: Jennifer Cohen. Transcribed by: [email or web address], User Resident: Electronically Signed by: JENNIFER COHEN @ 01/16/2020 02:26 PM Normal [facility] Comment on above: Order Comment: No: D o not add to previous draw Coding Summaryon 12-08-2019 Coding Summary CODING DATE: 12/08/2019 [facility] STATUS: Home PAYOR: Commercial Insurance ADMIT DX: REASON FOR VISIT DX: D50.9 Iron deficiency anemia, unspecified FINAL DX: PRINCIPAL: D50.9 Iron deficiency anemia, unspecified SECONDARY: PYMT PROC APC STAT DESCRIPTION DOCTOR NAME DATE NOTE: The code number assigned matches the documented diagnosis and / or procedure in the patient's chart. However, the narrative phrase printed from the coding software may appear abbreviated, or result in slightly different terminology. Revised Coded By: Enriqueta Hurtado Revised Date Saved: 11/22/2019 11:54 am [facility] Provider Orderson 11-18-2019 Provider Orders [id number]#[id number] Normal [facility] H&Hon 11-17-2019 Hematocrit (Bld) [Volume fraction] 28.7 % Low 34.8-51.9 [facility] Comment on above: Performed By: #### 5 [id number] #### [facility] (DEFAULT) [address] [place] [address] Hemoglobin (Bld) [Mass/Vol] 9.2 g/dL Low 11.8-17.7 [facility] Comment on above: Performed By: #### 5 [id number] #### [facility] (DEFAULT) [address] [place] [address] BASIC METABOLIC PANELon Calcium [Mass/Vol] 7.3 mg/dL Low 8.6-10.3 [facility] Comment on above: Order Comment: No: D o not add to previous draw Performed By: #### 5 6101, 76505, 35168, 75057, 02737, 92329, 37150 #### [facility] [address] [place] [address], [place] Chloride [Moles/Vol] 99 mmol/L Normal 98-107 [facility] Comment on above: Order Comment: No: D o not add to previous draw Performed By: #### 5 6101, 93119, 86955, 47997, 10382, 68690, 08551 #### [facility] [address] [place] [address], [place] CO2 [Moles/Vol] 27 mmol/L Normal 21-31 [facility] Comment on above: Order Comment: No: D o not add to previous draw Performed By: #### 5 6101, 75341, 81950, 93725, 50834, 87007, 25899 #### [facility] [address] [place] [address], [place] Creatinine [Mass/Vol] 0.38 mg/dL Low 0.70-1.30 [facility] Comment on above: Order Comment: No: D o not add to previous draw Performed By: #### 5 6101, 65925, 15832, 62577, 73595, 39168, 92429 #### [facility] [address] [place] [address], [place] GFR/1.73 sq M predicted among blacks MDRD (S/P/Bld) [Vol rate/Area] mL/min/{1.73_m2} Normal >60 [facility] Comment on above: Order Comment: No: D o not add to previous draw Performed By: #### 5 6101, 53758, 33355, 42329, 01396, 35253, 69882 #### [facility] [address] [place] [id number], [facility] GFR/1.73 sq M predicted among non-blacks MDRD (S/P/Bld) [Vol rate/Area] mL/min/{1.73_m2} Normal >60 [facility] Comment on above: Order Comment: No: D o not add to previous draw Performed By: #### 5 6101, 50945, 01190, 60964, 37942, 99280, 82506 #### [facility] [address] [place] [address], [facility] Glucose [Mass/Vol] 95 mg/dL Normal 70-100 [facility] Comment on above: Order Comment: No: D o not add to previous draw Performed By: #### 5 6101, 53154, 06537, 00053, 18444, 70401, 98214 #### [facility] [address] [place] [id number], [facility] Potassium [Moles/Vol] 3.7 mmol/L Normal 3.5-5.1 [facility] Comment on above: Order Comment: No: D o not add to previous draw Performed By: #### 5 6101, 15912, 08496, 79631, 06638, 22740, 27565 #### [facility] [address] [place] [address], [place] Sodium [Moles/Vol] 129 mmol/L Low 136-145 [facility] Comment on above: Order Comment: No: D o not add to previous draw Performed By: #### 5 6101, 05586, 46504, 67357, 07169, 06376, 25493 #### [facility] [address] [place] [address], [place] Urea nitrogen [Mass/Vol] 5 mg/dL Low 7-25 [facility] Comment on above: Order Comment: No: D o not add to previous draw Performed By: #### 5 6101, 65890, 49990, 27862, 52733, 07863, 37060 #### [facility] [address] CBC COMPLETE BLOOD COUNTon 1 01-08-2019 Erythrocyte distribution width (RBC) [Ratio] 16.0 % High 11.5-15.0 [facility] Comment on above: Order Comment: No: D o not add to previous draw Performed By: #### 5 6101, 06440, 38337, 95199, 99837, 28410, 18811 #### [facility] [address] Hematocrit (Bld) [Volume fraction] 20.8 % Low 39.0-50.0 [facility] Comment on above: Order Comment: No: D o not add to previous draw Performed By: #### 5 6101, 82584, 18591, 75585, 95756, 30279, 07534 #### [facility] [address] Hemoglobin (Bld) [Mass/Vol] 6.9 g/dL Low 13.0-17.0 [facility] Comment on above: Order Comment: No: D o not add to previous draw Performed By: #### 5 6101, 89963, 06716, 78232, 16165, 28622, 82671 #### [facility] [address] [place] [id number], [facility] MCH (RBC) [Entitic mass] 30.5 pg Normal 27.0-33.0 [facility] Comment on above: Order Comment: No: D o not add to previous draw Performed By: #### 5 6101, 95766, 73736, 07503, 39243, 30244, 27140 #### [facility] [address] [place] [address], [facility] MCHC (RBC) [Mass/Vol] 33.2 g/dL Normal 32.0-35.0 [facility] Comment on above: Order Comment: No: D o not add to previous draw Performed By: #### 5 6101, 33039, 67741, 14282, 17887, 24940, 84390 #### [facility] [address] [place] [address], [facility] MCV (RBC) [Entitic vol] 92.0 fL Normal 82.0-98.0 [facility] Comment on above: Order Comment: No: D o not add to previous draw Performed By: #### 5 6101, 94228, 63167, 86465, 43393, 49016, 21344 #### [facility] [address] [place] [address], [facility] Nucleated RBC/100 WBC (Bld) [Ratio] 0 % Normal 0-0 [facility] Comment on above: Order Comment: No: D o not add to previous draw Performed By: #### 5 6101, 80862, 27823, 86780, 40888, 75329, 56733 #### [facility] [address] [place] [address], [facility] PLAT CNT 447 10*3/uL High 150-400 [facility] Comment on above: Order Comment: No: D o not add to previous draw Performed By: #### 5 6101, 60431, 70113, 23538, 90109, 90560, 34710 #### [facility] [address] [place] [address], [facility] RBC (Bld) [#/Vol] 2.26 10*6/uL Low 4.20-5.70 The [facility] Comment on above: Order Comment: No: D o not add to previous draw Performed By: #### 5 6101, 39469, 75416, 73741, 26330, 60062, 17507 #### [facility] [address] [place] [id number], [facility] WBC (Bld) [#/Vol] 13.25 10*3/uL High 4.00-10.60 [facility] Comment on above: Order Comment: No: D o not add to previous draw Performed By: #### 5 6101, 52782, 58760, 65659, 85353, 48956, 86419 #### [facility] [address] [place] [address], [facility] MAGNESIUM BLOODon 11-07-2019 Magnesium [Mass/Vol] 1.7 mg/dL Low 1.9-2.7 [facility] Comment on above: Order Comment: No: D o not add to previous draw Performed By: #### 1 0054 #### [facility] [address] [place] [address], [facility] RBC'S 1 UNITon 11-07-2019 CROSSMATCH INTERP 1 COMP Normal [facility] Comment on above: Performed By: #### 1 0054 #### [facility] [address] [facility]. [address] PRODUCT CODE 1 E0336 Normal [facility] Comment on above: Performed By: #### 1 0054 #### [facility] [address] [facility]. [address] PRODUCT STATUS 1 PT Normal The [facility] Comment on above: Result Comment: Resu lt changed by IF on 11/07/2019 11:05. The previous value was XM. Result changed by IF on 11/08/2019 00:30. The previous value was IS. Performed By: #### 1 0054 #### [facility] [address] [facility] [place] [address], [facility] [facility] A[facility] 1 O Normal [facility] Comment on above: Performed By: #### 1 0054 #### [facility] [address] [facility] [address], [facility] UNIT ID 1 [id number] Normal [facility] Comment on above: Performed By: #### 1 0054 #### [facility] [address] [place] [address], [facility] UNIT RH 1 Positive Normal [facility] Comment on above: Performed By: #### 1 0054 #### [facility] [address] [place] [address], [facility] TYPE AND SCREENon 11-07-2019 ABO INTERPRETATION O Normal [facility] Comment on above: Performed By: #### 1 0054 #### [facility] [address] [place] [address], [facility] RH INTERPRETATION Positive Normal [facility] Comment on above: Performed By: #### 1 0054 #### [facility] [address] [place] [address], [facility] CBC COMPLETE BLOOD COUNTon 1 01-07-2019 Erythrocyte distribution width (RBC) [Ratio] 15.9 % High 11.5-15.0 [facility] Comment on above: Order Comment: No: D o not add to previous draw Performed By: #### 5 6101, 36571, 59501, 01082, 61071, 73265, 75932 #### [facility] [address] [place] [address], [facility] Hematocrit (Bld) [Volume fraction] 21.3 % Low 39.0-50.0 [facility] Comment on above: Order Comment: No: D o not add to previous draw Performed By: #### 5 6101, 69201, 78429, 60543, 54823, 46754, 07758 #### [facility] [address] [place] [address], [facility] Hemoglobin (Bld) [Mass/Vol] 7.1 g/dL Low 13.0-17.0 [facility] Comment on above: Order Comment: No: D o not add to previous draw Performed By: #### 5 6101, 69199, 77047, 29892, 13946, 88651, 86379 #### [facility] [address] [place] [address], [facility] MCH (RBC) [Entitic mass] 30.7 pg Normal 27.0-33.0 [facility] Comment on above: Order Comment: No: D o not add to previous draw Performed By: #### 5 6101, 81610, 41957, 33453, 72449, 48054, 50508 #### [facility] [address] [place] [id number], [facility] MCHC (RBC) [Mass/Vol] 33.3 g/dL Normal 32.0-35.0 [facility] Comment on above: Order Comment: No: D o not add to previous draw Performed By: #### 5 6101, 46310, 57825, 42665, 01608, 13568, 42246 #### [facility] [address] [facility] [place] [address], [facility] MCV (RBC) [Entitic vol] 92.2 fL Normal 82.0-98.0 [facility] Comment on above: Order Comment: No: D o not add to previous draw Performed By: #### 5 6101, 26170, 52525, 59563, 37314, 09345, 58262 #### [facility] [address] [facility] [place] [address], [facility] Nucleated RBC/100 WBC (Bld) [Ratio] 0 % Normal 0-0 [facility] Comment on above: Order Comment: No: D o not add to previous draw Performed By: #### 5 6101, 26758, 33516, 94150, 86498, 27946, 55589 #### [facility] [address] [place] [address], [facility] PLAT CNT 387 10*3/uL Normal 150-400 [facility] Comment on above: Order Comment: No: D o not add to previous draw Performed By: #### 5 6101, 77752, 74110, 46815, 64217, 59888, 69072 #### [facility] [address] [place] [address], [place] RBC (Bld) [#/Vol] 2.31 10*6/uL Low 4.20-5.70 [facility] Comment on above: Order Comment: No: D o not add to previous draw Performed By: #### 5 6101, 59987, 92596, 42031, 07869, 93704, 82141 #### [facility] [address] WBC (Bld) [#/Vol] 17.49 10*3/uL High 4.00-10.60 [facility] Comment on above: Order Comment: No: D o not add to previous draw Performed By: #### 5 6101, 93150, 41349, 01532, 98570, 87869, 83300 #### [facility] [address] COMP METABOLIC PANELon 11-06 Albumin [Mass/Vol] 2.0 g/dL Low 3.5-5.7 [facility] Comment on above: Order Comment: No: D o not add to previous draw Performed By: #### 5 6101, 33674, 07192, 40337, 11532, 20040, 22199 #### [facility] [address] ALKALINE PHOSPH 147 IU/L High 34-104 [facility] Comment on above: Order Comment: No: D o not add to previous draw Performed By: #### 5 6101, 42821, 21076, 59089, 29884, 90470, 35348 #### [facility] [address] ALT [Catalytic activity/Vol] 13 U/L Normal 7-52 [facility] Comment on above: Order Comment: No: D o not add to previous draw Performed By: #### 5 6101, 37612, 49636, 68222, 74628, 21087, 66832 #### [facility] [address] [place] [address], [facility] AST [Catalytic activity/Vol] 14 U/L Normal 13-39 [facility] Comment on above: Order Comment: No: D o not add to previous draw Performed By: #### 5 6101, 12908, 98689, 39439, 01553, 00976, 55551 #### [facility] [address] [place] [address], [place] Bilirubin [Mass/Vol] 1.3 mg/dL High 0.3-1.0 [facility] Comment on above: Order Comment: No: D o not add to previous draw Performed By: #### 5 6101, 56837, 48277, 10812, 91713, 36260, 87885 #### [facility] [address] [place] [address], [place] Calcium [Mass/Vol] 7.5 mg/dL Low 8.6-10.3 [facility] Comment on above: Order Comment: No: D o not add to previous draw Performed By: #### 5 6101, 51768, 06805, 59814, 36921, 24380, 37569 #### [facility] [address] [place] [address], [place] Chloride [Moles/Vol] 99 mmol/L Normal 98-107 [facility] Comment on above: Order Comment: No: D o not add to previous draw Performed By: #### 5 6101, 74430, 31321, 87772, 66124, 07960, 51023 #### [facility] [address] [place] [address], [place] CO2 [Moles/Vol] 26 mmol/L Normal 21-31 [facility] Comment on above: Order Comment: No: D o not add to previous draw Performed By: #### 5 6101, 54382, 80116, 03176, 91504, 07273, 83848 #### [facility] [address] [place] [address], [facility] Creatinine [Mass/Vol] 0.40 mg/dL Low 0.70-1.30 [facility] Comment on above: Order Comment: No: D o not add to previous draw Performed By: #### 5 6101, 04004, 33939, 88577, 36178, 66520, 97811 #### [facility] [address] [place] [address], [facility] GFR/1.73 sq M predicted among blacks MDRD (S/P/Bld) [Vol rate/Area] mL/min/{1.73_m2} Normal >60 [facility] Comment on above: Order Comment: No: D o not add to previous draw Performed By: #### 5 6101, 46819, 39315, 48611, 92741, 88683, 13048 #### [facility] [address] [facility] [place] [address], [facility] GFR/1.73 sq M predicted among non-blacks MDRD (S/P/Bld) [Vol rate/Area] mL/min/{1.73_m2} Normal >60 [facility] Comment on above: Order Comment: No: D o not add to previous draw Performed By: #### 5 6101, 74485, 49768, 69075, 99304, 02057, 56676 #### [facility] [address] [facility] [place] [address], [facility] Glucose [Mass/Vol] 86 mg/dL Normal 70-100 [facility] Comment on above: Order Comment: No: D o not add to previous draw Performed By: #### 5 6101, 85777, 33798, 32675, 76277, 72128, 76904 #### [facility] [address] [place] [address], [facility] Potassium [Moles/Vol] 4.0 mmol/L Normal 3.5-5.1 [facility] Comment on above: Order Comment: No: D o not add to previous draw Performed By: #### 5 6101, 93093, 55260, 89593, 88032, 26211, 97951 #### [facility] [address] [place] [address], [facility] Protein [Mass/Vol] 4.8 g/dL Low 6.0-8.3 [facility] Comment on above: Order Comment: No: D o not add to previous draw Performed By: #### 5 6101, 90446, 28720, 89562, 12170, 44354, 24759 #### [facility] [address] [place] [address], [facility] Sodium [Moles/Vol] 130 mmol/L Low 136-145 [facility] Comment on above: Order Comment: No: D o not add to previous draw Performed By: #### 5 6101, 31001, 32204, 12444, 67011, 93624, 71572 #### [facility] [address] [place] [address], [facility] Urea nitrogen [Mass/Vol] 5 mg/dL Low 7-25 [facility] Comment on above: Order Comment: No: D o not add to previous draw Performed By: #### 5 6101, 31480, 12949, 18644, 11284, 65456, 05341 #### [facility] [address] [place] [id number], [facility] MAGNESIUM BLOODon 11-06-2019 Magnesium [Mass/Vol] 1.8 mg/dL Low 1.9-2.7 [facility] Comment on above: Order Comment: No: D o not add to previous draw Performed By: #### 5 6101, 63255, 59191, 65753, 82598, 87996, 48639 #### [facility] [address] [place] [address], [facility] *C DIFF DNA AMPLIFICATIONon 11-05-2019 *C DIFF DNA AMPLIFICATION Clinical Report: (D) Specimen: STOOL Collected: 11/05/2019 15:19 Status: Final Last Updated: 11/05/2019 16:45 (1) No: Do not add to previous draw CDT DNA: (Final) Negative Normal [facility] Comment on above: Order Comment: No: D o not add to previous draw Performed By: #### 5 6101, 49622, 17336, 97303, 52134, 69054, 20175 #### [facility] [address] *WOUND CULTUREon 11-05-2019 *WOUND CULTURE Clinical Report: (D) Specimen/Source: WOUND/INCISION Collected: 11/05/2019 10:46 Status: Final Last Updated: 11/07/2019 11:08 (1) No: Do not add to previous draw GRAM (Final) Moderate Polys Rare Gram Positive Cocci In Pairs And Chains ISO (Final) Escherichia coli Rare Growth ISO (Final) Skin Donna Light Growth ISOLATE: Escherichia coli -- ANSLEY (mcg/ml) AMP./SULBAC (AMS) 2/1 Susceptible AMPICILLIN (AM) <=2 Susceptible AZTREONAM (AZM) <=1 Susceptible CEFAZOLIN (CZ) <=1 Susceptible CEFTRIAXONE (STEREO PLOTTER OPERATOR) <=0.5 Susceptible CIPROFLOXACIN (CIP) <=0.5 Susceptible ESBL (-/+) (ESBL) Negative GENTAMICIN (GM) <=1 Susceptible PIP/TAZO (TZP) <=2/4 Susceptible TOBRAMYCIN (TOB) 1 Susceptible TRIMETH/SULFA (SXT) <=0.5/9.5 Susceptible Normal [facility] Comment on above: Order Comment: No: D o not add to previous draw Performed By: #### 5 6101, 15558, 62611, 30970, 80866, 02440, 24328 #### [facility] [address] BASIC METABOLIC PANELon 12-0 Calcium [Mass/Vol] 7.6 mg/dL Low 8.6-10.3 [facility] Comment on above: Order Comment: No: D o not add to previous draw Performed By: #### 5 6101, 26046, 49707, 49254, 69738, 62773, 15569 #### [facility] [address] [place] [address], [facility] Chloride [Moles/Vol] 97 mmol/L Low 98-107 [facility] Comment on above: Order Comment: No: D o not add to previous draw Performed By: #### 5 6101, 96165, 36637, 66396, 79740, 84496, 55871 #### [facility] [address] [place] [address], [facility] CO2 [Moles/Vol] 26 mmol/L Normal 21-31 [facility] Comment on above: Order Comment: No: D o not add to previous draw Performed By: #### 5 6101, 39194, 21966, 45599, 97036, 45415, 99120 #### [facility] [address] [place] [address], [facility] Creatinine [Mass/Vol] 0.35 mg/dL Low 0.70-1.30 [facility] Comment on above: Order Comment: No: D o not add to previous draw Performed By: #### 5 6101, 27493, 78356, 13745, 52102, 79539, 14091 #### [facility] [address] [place] [address], [facility] GFR/1.73 sq M predicted among blacks MDRD (S/P/Bld) [Vol rate/Area] mL/min/{1.73_m2} Normal >60 [facility] Comment on above: Order Comment: No: D o not add to previous draw Performed By: #### 5 6101, 51960, 93495, 10137, 46467, 80745, 88144 #### [facility] [address] [place] [address], [facility] GFR/1.73 sq M predicted among non-blacks MDRD (S/P/Bld) [Vol rate/Area] mL/min/{1.73_m2} Normal >60 [facility] Comment on above: Order Comment: No: D o not add to previous draw Performed By: #### 5 6101, 20000, 40697, 84355, 25001, 51076, 85223 #### [facility] [address] [place] [address], [place] Glucose [Mass/Vol] 98 mg/dL Normal 70-100 [facility] Comment on above: Order Comment: No: D o not add to previous draw Performed By: #### 5 6101, 38735, 39167, 12236, 48991, 76878, 42468 #### [facility] [address] [place] [address], [place] Potassium [Moles/Vol] 3.8 mmol/L Normal 3.5-5.1 [facility] Comment on above: Order Comment: No: D o not add to previous draw Performed By: #### 5 6101, 12424, 03228, 40039, 57285, 50648, 56977 #### [facility] [address] [place] [address], [place] Sodium [Moles/Vol] 129 mmol/L Low 136-145 [facility] Comment on above: Order Comment: No: D o not add to previous draw Performed By: #### 5 6101, 74621, 78357, 25149, 80076, 73637, 23613 #### [facility] [address] [place] [address], [place] Urea nitrogen [Mass/Vol] 5 mg/dL Low 7-25 [facility] Comment on above: Order Comment: No: D o not add to previous draw Performed By: #### 5 6101, 16639, 77751, 60589, 47766, 83413, 60164 #### [facility] [address] [place] [address], [place] CBC COMPLETE BLOOD COUNTon 1 01-06-2019 Erythrocyte distribution width (RBC) [Ratio] 15.5 % High 11.5-15.0 [facility] Comment on above: Order Comment: No: D o not add to previous draw Performed By: #### 5 6101, 09895, 18741, 43348, 49059, 01808, 31722 #### [facility] [address] [place] [address], [facility] Hematocrit (Bld) [Volume fraction] 22.4 % Low 39.0-50.0 [facility] Comment on above: Order Comment: No: D o not add to previous draw Performed By: #### 5 6101, 74893, 22250, 35780, 85802, 28427, 03161 #### [facility] [address] [place] [address], [facility] Hemoglobin (Bld) [Mass/Vol] 7.5 g/dL Low 13.0-17.0 [facility] Comment on above: Order Comment: No: D o not add to previous draw Performed By: #### 5 6101, 15241, 92112, 60767, 76818, 66219, 92697 #### [facility] [address] [place] [address], [facility] MCH (RBC) [Entitic mass] 31.0 pg Normal 27.0-33.0 [facility] Comment on above: Order Comment: No: D o not add to previous draw Performed By: #### 5 6101, 90750, 25745, 60178, 70402, 52879, 26069 #### [facility] [address] [place] [address], [facility] MCHC (RBC) [Mass/Vol] 33.5 g/dL Normal 32.0-35.0 [facility] Comment on above: Order Comment: No: D o not add to previous draw Performed By: #### 5 6101, 07414, 74696, 14762, 34447, 10808, 27038 #### [facility] [address] [place] [address], [facility] MCV (RBC) [Entitic vol] 92.6 fL Normal 82.0-98.0 [facility] Comment on above: Order Comment: No: D o not add to previous draw Performed By: #### 5 6101, 43968, 00115, 00796, 03193, 10533, 20899 #### [facility] [address] [place] [address], [facility] Nucleated RBC/100 WBC (Bld) [Ratio] 0 % Normal 0-0 [facility] Comment on above: Order Comment: No: D o not add to previous draw Performed By: #### 5 6101, 28080, 72900, 57622, 22549, 47991, 34816 #### [facility] [address] [place] [address], [facility] PLAT CNT 350 10*3/uL Normal 150-400 [facility] Comment on above: Order Comment: No: D o not add to previous draw Performed By: #### 5 6101, 21224, 26325, 37986, 46300, 94996, 23876 #### [facility] [address] [place] [address], [facility] RBC (Bld) [#/Vol] 2.42 10*6/uL Low 4.20-5.70 [facility] Comment on above: Order Comment: No: D o not add to previous draw Performed By: #### 5 6101, 40086, 87224, 92947, 82830, 15399, 45737 #### [facility] [address] [place] [address], [facility] WBC (Bld) [#/Vol] 20.11 10*3/uL High 4.00-10.60 [facility] Comment on above: Order Comment: No: D o not add to previous draw Performed By: #### 5 6101, 37593, 23314, 02847, 38679, 52340, 16374 #### [address] CHEST AND LATERALon 11-05-20 CHEST AND LATERAL [facility] Department of Radiology [address] [place] [id number] ======== Patient Name: MIGUEL BARON : 1960 Sex: M Age: Race: White Pt. Location: [id number] Patient Status: I Ordered Date: 11/04/2019 1:35:00 PM Completed Date: 11/05/2019 12:40 PM Requesting Provider: HAILE WILLOUGHBY Attending Provider: HUGH BUSCH Report Copy To: Signs & Symptoms: Elevated WBC History: See Comments Comments: R/O Pneumonia Exam: CHEST AND LATERAL ======== CHEST AND LATERAL 11/05/2019 12:40 PM EST SIGNS AND SYMPTOMS: Elevated WBC TECHNOLOGIST COMMENTS: Elevated WBC, R/O Pneumonia. QUESTION FOR THE RADIOLOGIST: R/O Pneumonia PROTOCOL: AP(PA) and Lateral views were obtained. COMPARISON: Chest radiograph October 28, 2019 FINDINGS: Cardiomediastinal silhouette remains unchanged. Trachea is midline. No focal parenchymal opacity, pleural effusion or pneumothorax. No acute osseous abnormality. No subdiaphragmatic free air. Interval removal of NGT seen in the prior study. IMPRESSION: No radiographic evidence of an acute pulmonary process. Approved by:Jacinto Jones on 11/05/2019 5:55 PM EST. Ramandeep Becerray, have reviewed the images and report and concur with these findings. Electronically signed by:Ramandeep Mai. Transcribed by: [email or web address], User Resident: JACINTO JONES Electronically Signed by: RAMANDEEP MAI @ 11/07/2019 09:28 AM I personally read this/these film(s) with this resident Normal [facility] Comment on above: Order Comment: No: D o not add to previous draw CT ABDOMEN AND PELVIS W IV C ONTRASTon 11-05-2019 CT ABDOMEN AND PELVIS W IV CONTRAST [facility] Department of Radiology [address] [place] [phone] ======== Patient Name: MIGUEL BARON : 1960 Sex: M Age: Race: White Pt. Location: [address] [place] [address] Patient Status: I Ordered Date: 11/05/2019 2:25:00 PM Completed Date: 11/05/2019 03:03 PM Requesting Provider: YESSENIA ESTRADA Attending Provider: HUGH BUSCH Report Copy To: Signs & Symptoms: Abdominal Pain(specify) History: See Comments Comments: Other, r/o intra-abdominal abscess/fluid collection Exam: CT ABDOMEN AND PELVIS W IV CONTRAST ======== CT ABDOMEN AND PELVIS W IV CONTRAST 11/05/2019 3:03 PM EST SIGNS AND SYMPTOMS: Abdominal Pain(specify) TECHNOLOGIST COMMENTS: Pain at surgical site today. Pt poor historian and unable to tell what surgical procedure was done. QUESTION FOR THE RADIOLOGIST: Other, r/o intra-abdominal abscess/fluid collection PROTOCOL: Axial CT images of the abdomen/pelvis were obtained with IV contrast. CONTRAST: Contrast: OMNIPAQUE 350 (LOCM), 100 milliliter, Intravenous TECHNIQUE: Multidetector ct axial images of the abdomen and pelvis were obtained with IV contrast. Multiplanar reformats were performed and viewed on a separate workstation and reviewed to further define anatomy and possible pathology. Appropriate CT dose lowering techniques were utilized. COMPARISON: CT abdomen pelvis October 28, 2019 FINDINGS: Lower Chest: Within normal limits. ABDOMEN: Liver: Hypodense right hepatic lobe lesion on series 5 image 78, may be sequela of portal venous thrombosis seen on prior study and appeared markedly decreased in size. Bile Ducts: Normal caliber. Gallbladder: No calcified gallstones. Normal caliber wall. Pancreas: Within normal limits. Spleen: Within normal limits. Adrenals: Within normal limits. Kidneys: Within normal limits. Pelvis: Reproductive Organs: No pelvic masses. Enlargement of prostate with central prostatic calcification. Ureters: Within normal limits. Bladder: Within normal limits. Bowel: Mild diffuse gaseous and fluid distended small bowel, likely related to postoperative ileus. Rectosigmoid diverticulosis. Mesenteric Lymph Nodes: No enlarged mesenteric lymph nodes. Peritoneum: Perihepatic and perisplenic ascites. Vessels: Atherosclerotic changes throughout the abdominal aorta extending into the adjacent vessels. Nonaneurysmal. Retroperitoneum: Within normal limits. Abdominal Wall: Anterior abdominal wall incision with midline anthony. Diffuse anasarca. Bones: Degenerative changes of the lumbosacral spine. IMPRESSION: 1. Hypodense right hepatic lobe lesion, most likely sequela of portal venous thrombosis seen on prior study and appear resolved since the prior study. 2. Mild diffuse gaseous and fluid distended small bowel, likely related to postoperative ileus. 3. Small amount of perihepatic and perisplenic ascites. 4. Anterior abdominal wall incision with midline anthony. Mild anasarca. 5. Rectosigmoid diverticulosis. Approved by:Jacinto Jones on 11/05/2019 3:42 PM EST. I, Ramandeep Mai, have reviewed the images and report and concur with these findings. Electronically signed by:Ramandeep Mai. Transcribed by: [email or web address], User Resident: JACINTO JONES Electronically Signed by: RAMANDEEP MAI @ 11/06/2019 08:15 AM I personally read this/these film(s) with this resident Normal [facility] Comment on above: Order Comment: Other , r/o intra-abdominal abscess/fluid collection MAGNESIUM BLOODon 11-05-2019 Magnesium [Mass/Vol] 1.9 mg/dL Normal 1.9-2.7 [facility] Comment on above: Order Comment: No: D o not add to previous drawPt using restroom. Performed By: #### 5 6101, 22405, 71397, 84883, 44370, 58177, 74070 #### [facility] [address] [place], [place] [id number] [place] [address] URINALYSIS REFLEXon 11-05-20 19 Appearance (U) SL CLOUDY Abnormal CLEAR [facility] Comment on above: Order Comment: No: D o not add to previous drawCriteria for reflexing a culture was not met. Please call the lab [email or web address] within 24 hours of collection time if culture is needed Performed By: #### 5 6101, 27650, 86384, 94289, 29311, 71852, 67787 #### [facility] [address] [facility] [place] [address], [facility] Bilirubin [Mass/Vol] Negative Normal NEGATIVE [facility] Comment on above: Order Comment: No: D o not add to previous drawCriteria for reflexing a culture was not met. Please call the lab [id number] within 24 hours of collection time if culture is needed Performed By: #### 5 6101, 06499, 68732, 24188, 01071, 72530, 66660 #### [facility] [address] [place] [address], [facility] BLOOD Negative Normal NEGATIVE [facility] Comment on above: Order Comment: No: D o not add to previous drawCriteria for reflexing a culture was not met. Please call the lab [email or web address] within 24 hours of collection time if culture is needed Performed By: #### 5 6101, 00465, 96869, 31195, 65245, 00462, 54691 #### [facility] [address] [place] [address], [facility] Color (U) BELLA Abnormal YELLOW [facility] Comment on above: Order Comment: No: D o not add to previous drawCriteria for reflexing a culture was not met. Please call the lab [email or web address] within 24 hours of collection time if culture is needed Performed By: #### 5 6101, 54346, 06242, 75639, 73103, 74865, 18099 #### [facility] [address] [place] [address], [facility] EPIS NONE SEEN Normal FEW,OCC,NONE SEEN [facility] Comment on above: Order Comment: No: D o not add to previous drawCriteria for reflexing a culture was not met. Please call the lab [email or web address] within 24 hours of collection time if culture is needed Performed By: #### 5 6101, 30365, 37014, 76741, 67341, 34518, 36846 #### [facility] [address] [place] [address], [place] Glucose [Mass/Vol] Negative Normal NEGATIVE The [facility] Comment on above: Order Comment: No: D o not add to previous drawCriteria for reflexing a culture was not met. Please call the lab [email or web address] within 24 hours of collection time if culture is needed Performed By: #### 5 6101, 95500, 73820, 58840, 42541, 10735, 53295 #### [facility] [address] [place] [address], [place] KETONE Negative Normal NEGATIVE [facility] Comment on above: Order Comment: No: D o not add to previous drawCriteria for reflexing a culture was not met. Please call the lab [email or web address] within 24 hours of collection time if culture is needed Performed By: #### 5 6101, 37756, 50458, 37205, 36526, 67263, 06563 #### [facility] [address] [facility] [place] [address], [facility] LEUK ODALIS Negative Normal NEGATIVE [facility] Comment on above: Order Comment: No: D o not add to previous drawCriteria for reflexing a culture was not met. Please call the lab [email or web address] within 24 hours of collection time if culture is needed Performed By: #### 5 6101, 65702, 62110, 65583, 94543, 72581, 19423 #### [facility] [address] [place] [address], [facility] MUCUS THREADS MANY Abnormal NONE SEEN The [facility] Comment on above: Order Comment: No: D o not add to previous drawCriteria for reflexing a culture was not met. Please call the lab [id number] within 24 hours of collection time if culture is needed Performed By: #### 5 6101, 14458, 67302, 70379, 46547, 85143, 66222 #### [facility] [address] [place] [address], [facility] Nitrite Ql (U) Negative Normal NEGATIVE The [facility] Comment on above: Order Comment: No: D o not add to previous drawCriteria for reflexing a culture was not met. Please call the lab [email or web address] within 24 hours of collection time if culture is needed Performed By: #### 5 6101, 04879, 01265, 35583, 84147, 24387, 10511 #### [facility] [address] [facility] [place] [address], [facility] pH (Bld) 6.0 Normal 5.0-8.0 [facility] Comment on above: Order Comment: No: D o not add to previous drawCriteria for reflexing a culture was not met. Please call the lab [email or web address] within 24 hours of collection time if culture is needed Performed By: #### 5 6101, 70442, 14161, 42841, 14966, 91894, 06578 #### [facility] [address] [facility]. [place], [address] Protein (U) [Mass/Vol] Negative Normal NEGATIVE [facility] Comment on above: Order Comment: No: D o not add to previous drawCriteria for reflexing a culture was not met. Please call the lab [email or web address] within 24 hours of collection time if culture is needed Performed By: #### 5 6101, 80125, 72174, 96610, 46524, 85511, 59590 #### [facility] [address] [place], [place] [id number] [place] [address] RBC (U) [#/Vol] NONE SEEN Normal NONE SEEN The [facility] Comment on above: Order Comment: No: D o not add to previous drawCriteria for reflexing a culture was not met. Please call the lab [email or web address] within 24 hours of collection time if culture is needed Performed By: #### 5 6101, 11191, 72827, 23145, 99074, 37104, 09906 #### [facility] [address] SPEC GRAV 1.016 Normal 1.015-1.020 The [facility] Comment on above: Order Comment: No: D o not add to previous drawCriteria for reflexing a culture was not met. Please call the lab [email or web address] within 24 hours of collection time if culture is needed Performed By: #### 5 6101, 05682, 73785, 34579, 22881, 06244, 26564 #### [facility] [address] [place] [address], [facility] WBC UA 0-2 Abnormal NONE SEEN [facility] Comment on above: Order Comment: No: D o not add to previous drawCriteria for reflexing a culture was not met. Please call the lab [email or web address] within 24 hours of collection time if culture is needed Performed By: #### 5 6101, 30540, 27567, 48778, 02533, 07772, 88138 #### [facility] [address] [place], [place] [id number] [place] [address] *BLOOD CULTUREon 11-04-2019 Bacteria identified Cx Nom (Bld) Clinical Report: (D) Specimen: BLOOD CULTURE Collected: 11/04/2019 13:45 Status: Final Last Updated: 11/10/2019 07:39 CULT RES (Final) No Growth Day 5 Normal [facility] Comment on above: Performed By: #### 5 6101, 71033, 64949, 39356, 94562, 75330, 88122 #### [facility] [address] [facility]. [address] CBC W/DIFFon 11-04-2019 ABS BASOPHILS 0.0 10*3/uL Normal 0.0-0.2 [facility] Comment on above: Performed By: #### 5 6101, 24394, 35139, 84139, 47773, 06262, 31879 #### [facility] [address] [facility]. [address] ABS NEUTROPHILS 16.3 10*3/uL High 1.6-7.6 The [facility] Comment on above: Performed By: #### 5 6101, 02637, 23922, 68753, 07976, 27091, 52450 #### [facility] [address] [facility]. [address] ANISO Moderate Normal [facility] Comment on above: Performed By: #### 5 6101, 59417, 79871, 69884, 46245, 97385, 18375 #### [facility] [address] [facility]. [address] Basophils/100 WBC (Bld) 0.0 % Normal 0.0-1.0 [facility] Comment on above: Performed By: #### 5 6101, 76137, 64495, 37981, 87638, 48549, 81749 #### [facility] [address] [facility]. [address] DOHLE BODIES Slight Normal [facility] Comment on above: Performed By: #### 5 6101, 96833, 83347, 44273, 70132, 74985, 09490 #### [facility] [address] [place] [address], [facility] Eosinophils (Bld) [#/Vol] 0.0 10*3/uL Normal 0.0-0.5 [facility] Comment on above: Performed By: #### 5 6101, 42631, 84173, 34792, 94764, 64118, 16060 #### [facility] [address] [place] [address], [facility] Eosinophils/100 WBC (Bld) 0.0 % Normal 0.0-6.0 [facility] Comment on above: Performed By: #### 5 6101, 46787, 26462, 40404, 26256, 27288, 42971 #### [facility] [address] Erythrocyte distribution width (RBC) [Ratio] 15.6 % High 11.5-15.0 [facility] Comment on above: Performed By: #### 5 6101, 04757, 33316, 57020, 14979, 70233, 40378 #### [facility] [address] [place] [address], [facility] GIANT PLATELETS Present Normal The [facility] Comment on above: Performed By: #### 5 6101, 22918, 74458, 43540, 09224, 09999, 44274 #### [facility] [address] Hematocrit (Bld) [Volume fraction] 21.1 % Low 39.0-50.0 [facility] Comment on above: Performed By: #### 5 6101, 65472, 22148, 12426, 90459, 11489, 36034 #### [facility] [address] [place] [address], [facility] Hemoglobin (Bld) [Mass/Vol] 7.1 g/dL Low 13.0-17.0 [facility] Comment on above: Performed By: #### 5 6101, 11422, 98647, 03108, 59022, 53541, 64748 #### [facility] [address] Lymphocytes (Bld) [#/Vol] 0.5 10*3/uL Low 1.2-4.0 [facility] Comment on above: Performed By: #### 5 6101, 59745, 69461, 54898, 23059, 03918, 16143 #### [facility] [address] Lymphocytes/100 WBC (Bld) 2.7 % Low 20.0-45.0 [facility] Comment on above: Performed By: #### 5 6101, 80657, 36001, 34846, 46541, 14562, 61114 #### [facility] [address] [facility] [place] [address], [facility] MCH (RBC) [Entitic mass] 30.9 pg Normal 27.0-33.0 [facility] Comment on above: Performed By: #### 5 6101, 75344, 05044, 29586, 00903, 44894, 09159 #### [facility] [address] [facility] [place] [address], [facility] MCHC (RBC) [Mass/Vol] 33.6 g/dL Normal 32.0-35.0 [facility] Comment on above: Performed By: #### 5 6101, 72192, 88044, 97081, 31989, 43256, 58711 #### [facility] [address] [facility] [place] [address], [facility] MCV (RBC) [Entitic vol] 91.7 fL Normal 82.0-98.0 [facility] Comment on above: Performed By: #### 5 6101, 11942, 67081, 51355, 20617, 24048, 18155 #### [facility] [address] [facility] [place] [address], [facility] Monocytes (Bld) [#/Vol] 1.9 10*3/uL High 0.1-1.0 [facility] Comment on above: Performed By: #### 5 6101, 81375, 43172, 83240, 83288, 11281, 55310 #### [facility] [address] [facility] [place] [address], [facility] MONOS 10.1 % Normal 5.0-12.0 [facility] Comment on above: Performed By: #### 5 6101, 51537, 45836, 80551, 44722, 98998, 43260 #### [facility] [address] [facility] [place] [address], [facility] Neutrophils/100 WBC (Bld) 87.2 % High 40.0-72.0 [facility] Comment on above: Performed By: #### 5 6101, 48139, 28597, 30468, 28345, 62695, 73657 #### [facility] [address] [facility] [place] [address], [facility] Nucleated RBC/100 WBC (Bld) [Ratio] 0 % Normal 0-0 [facility] Comment on above: Performed By: #### 5 6101, 52307, 91318, 66356, 19904, 91525, 26057 #### [facility] [address] [facility] [place] [address], [facility] PLAT CNT 304 10*3/uL Normal 150-400 [facility] Comment on above: Performed By: #### 5 6101, 76575, 00865, 73414, 73703, 59063, 67385 #### [facility] [address] [place] [address], [facility] POIK Moderate Normal [facility] Comment on above: Performed By: #### 5 6101, 17662, 40701, 79489, 32505, 77461, 31295 #### [facility] [address] POLY Slight Normal [facility] Comment on above: Performed By: #### 5 6101, 73375, 42764, 04774, 09930, 11005, 25501 #### [facility] [address] [facility] [address] RBC (Bld) [#/Vol] 2.30 10*6/uL Low 4.20-5.70 The [facility] Comment on above: Performed By: #### 5 6101, 47129, 06450, 89762, 98113, 92182, 76565 #### [facility] [address] [facility]. [address] TARGET CELLS Moderate Normal [facility] Comment on above: Performed By: #### 5 6101, 02393, 37511, 75316, 66422, 44645, 45506 #### [facility] [address] [facility]. [address] TOXIC GRANULATION Moderate Normal The [facility] Comment on above: Performed By: #### 5 6101, 26999, 90613, 56463, 37376, 75022, 16196 #### [facility] [address] [facility]. [address] WBC (Bld) [#/Vol] 18.67 10*3/uL High 4.00-10.60 [facility] Comment on above: Performed By: #### 5 6101, 38398, 82459, 41327, 27557, 04022, 92055 #### [facility] [address] COMP METABOLIC PANELon 11-04 Albumin [Mass/Vol] 2.1 g/dL Low 3.5-5.7 [facility] Comment on above: Order Comment: No: D o not add to previous draw Performed By: #### 5 6101, 63448, 56849, 30453, 43250, 56196, 40700 #### [facility] [address] [place] [address], [facility] ALKALINE PHOSPH 153 IU/L High 34-104 [facility] Comment on above: Order Comment: No: D o not add to previous draw Performed By: #### 5 6101, 46731, 01372, 74358, 79522, 52533, 38438 #### [facility] [address] [place] [address], [facility] ALT [Catalytic activity/Vol] 16 U/L Normal 7-52 [facility] Comment on above: Order Comment: No: D o not add to previous draw Performed By: #### 5 6101, 15642, 53441, 09962, 33473, 88289, 73841 #### [facility] [address] [place] [address], [place] AST [Catalytic activity/Vol] 14 U/L Normal 13-39 [facility] Comment on above: Order Comment: No: D o not add to previous draw Performed By: #### 5 6101, 70019, 36380, 01952, 22764, 97094, 13050 #### [facility] [address] [place] [address], [place] Bilirubin [Mass/Vol] 1.6 mg/dL High 0.3-1.0 [facility] Comment on above: Order Comment: No: D o not add to previous draw Performed By: #### 5 6101, 97105, 88541, 30163, 43421, 37727, 31172 #### [facility] [address] [place] [address], [place] Calcium [Mass/Vol] 7.5 mg/dL Low 8.6-10.3 [facility] Comment on above: Order Comment: No: D o not add to previous draw Performed By: #### 5 6101, 47474, 15200, 59105, 68872, 25537, 90478 #### [facility] [address] [place] [address], [facility] Chloride [Moles/Vol] 97 mmol/L Low 98-107 [facility] Comment on above: Order Comment: No: D o not add to previous draw Performed By: #### 5 6101, 46207, 41639, 86438, 32292, 70425, 87049 #### [facility] [address] [place] [address], [place] CO2 [Moles/Vol] 26 mmol/L Normal 21-31 [facility] Comment on above: Order Comment: No: D o not add to previous draw Performed By: #### 5 6101, 64719, 22649, 48064, 21814, 13147, 18775 #### [facility] [address] [place] [address], [facility] Creatinine [Mass/Vol] 0.40 mg/dL Low 0.70-1.30 [facility] Comment on above: Order Comment: No: D o not add to previous draw Performed By: #### 5 6101, 73530, 38353, 98515, 77152, 22071, 73407 #### [facility] [address] [place] [address], [facility] GFR/1.73 sq M predicted among blacks MDRD (S/P/Bld) [Vol rate/Area] mL/min/{1.73_m2} Normal >60 [facility] Comment on above: Order Comment: No: D o not add to previous draw Performed By: #### 5 6101, 15251, 42653, 27948, 84413, 23340, 24398 #### [facility] [address] [place] [address], [place] GFR/1.73 sq M predicted among non-blacks MDRD (S/P/Bld) [Vol rate/Area] mL/min/{1.73_m2} Normal >60 [facility] Comment on above: Order Comment: No: D o not add to previous draw Performed By: #### 5 6101, 49753, 08582, 51626, 16292, 60958, 57277 #### [facility] [address] [place] [address], [place] Glucose [Mass/Vol] 88 mg/dL Normal 70-100 [facility] Comment on above: Order Comment: No: D o not add to previous draw Performed By: #### 5 6101, 53985, 40142, 53479, 13604, 10158, 00666 #### [facility] [address] [place] [address], [place] Potassium [Moles/Vol] 4.0 mmol/L Normal 3.5-5.1 [facility] Comment on above: Order Comment: No: D o not add to previous draw Performed By: #### 5 6101, 80256, 37647, 06654, 94028, 54806, 10277 #### [facility] [address] [place] [address], [place] Protein [Mass/Vol] 4.8 g/dL Low 6.0-8.3 [facility] Comment on above: Order Comment: No: D o not add to previous draw Performed By: #### 5 6101, 09447, 53131, 68127, 62515, 54556, 57843 #### [facility] [address] [place] [address], [place] Sodium [Moles/Vol] 128 mmol/L Low 136-145 [facility] Comment on above: Order Comment: No: D o not add to previous draw Performed By: #### 5 6101, 74447, 37783, 86936, 20471, 41427, 96473 #### [facility] [address] [place] [address], [facility] Urea nitrogen [Mass/Vol] 5 mg/dL Low 7-25 [facility] Comment on above: Order Comment: No: D o not add to previous draw Performed By: #### 5 6101, 02496, 17398, 01448, 37733, 55269, 46403 #### [facility] [address] [place] [id number], [facility] MAGNESIUM BLOODon 11-04-2019 Magnesium [Mass/Vol] 1.7 mg/dL Low 1.9-2.7 [facility] Comment on above: Order Comment: No: D o not add to previous draw Performed By: #### 5 6101, 70745, 48447, 18321, 83888, 55196, 25637 #### [facility] [address] [place] [address], [facility] PHOSPHORUS BLOODon 9 Phosphate [Mass/Vol] 2.7 mg/dL Normal 2.5-5.0 [facility] Comment on above: Order Comment: No: D o not add to previous draw Performed By: #### 5 6101, 93978, 70626, 66982, 60613, 82702, 24318 #### [facility] [address] UFH HEPARIN ASSAYon 11-04-20 19 UNFRACTIONATED HEPARIN <0.10 Critically low 0.30-0.70 [facility] Comment on above: Result Comment: Roosevelt roxaban and Apixaban will interfere with the anti Xa assay used to monitor UFH and LMWH. RESULTS CHECKED AND CALLED. ACCURATELY READ BACK BY MATTHEW MORRISON RN AT 08:02 RN STATES PATIENT IS STILL ON HEPARIN DRIP. Performed By: #### 5 6101, 29000, 94448, 09698, 18939, 74227, 86366 #### [facility] [address] [place] [address], [facility] UNFRACTIONATED HEPARIN 0.26 IU/mL Low 0.30-0.70 [facility] Comment on above: Result Comment: Jo Ann roxaban and Apixaban will interfere with the anti Xa assay used to monitor UFH and LMWH. Performed By: #### 5 6101, 98437, 22279, 56525, 31322, 02660, 48724 #### [facility] [address] APTTon 11-03-2019 aPTT Coag (Bld) [Time] 161.0 s Critically high 25.0-35.0 [facility] Comment on above: Order Comment: No: D o not add to previous draw Result Comment: ALL RESULTS MUST BE INTERPRETED WITH RESPECT TO BLOOD DRAWING ARTIFACT OR DILUTION ERROR OF ANTICOAGULANT AT THE TIME OF SAMPLING. THE APTT SHOULD NOT BE USED TO MONITOR UNFRACTIONATED HEPARIN THERAPY, THIS LABORATORY NO LONGER HAS AN ESTABLISHED THERAPEUTIC RANGE BASED ON THE APTT. IT IS RECOMMENDED THAT THE UFH - HEPARIN ASSAY (ANTI-XA ACTIVITY) BE USED FOR THIS PURPOSE. APTT RESULT REPEATED AND CONFIRMED CLINICAL SIGNIFICANCE OF THE PTT RESULT IS QUESTIONABLE IN THE PRESENCE OF HEPARIN. RN UNAVAILABLE AT 09:23 - WILL TRY AGAIN RESULTS CHECKED AND CALLED. ACCURATELY READ BACK BY DESTINEE CHAVEZ RN AT 10:25 Performed By: #### 5 6101, 26913, 10585, 55671, 50697, 54552, 21335 #### [facility] [address] [facility]. [address] BASIC METABOLIC PANELon Calcium [Mass/Vol] 7.5 mg/dL Low 8.6-10.3 [facility] Comment on above: Order Comment: No: D o not add to previous draw Performed By: #### 5 6101, 80062, 92325, 82462, 58524, 27651, 74067 #### [facility] [address] [facility] [place] [address], [facility] Chloride [Moles/Vol] 96 mmol/L Low 98-107 [facility] Comment on above: Order Comment: No: D o not add to previous draw Performed By: #### 5 6101, 45350, 19898, 92936, 70740, 17539, 19556 #### [facility] [address] [place] [address], [place] CO2 [Moles/Vol] 29 mmol/L Normal 21-31 [facility] Comment on above: Order Comment: No: D o not add to previous draw Performed By: #### 5 6101, 99072, 48540, 46410, 18731, 32416, 82728 #### [facility] [address] [place] [address], [place] Creatinine [Mass/Vol] 0.41 mg/dL Low 0.70-1.30 [facility] Comment on above: Order Comment: No: D o not add to previous draw Performed By: #### 5 6101, 08842, 43586, 73848, 70244, 17015, 32366 #### [facility] [address] [place] [address], [facility] GFR/1.73 sq M predicted among blacks MDRD (S/P/Bld) [Vol rate/Area] mL/min/{1.73_m2} Normal >60 [facility] Comment on above: Order Comment: No: D o not add to previous draw Performed By: #### 5 6101, 14322, 85984, 57007, 93893, 69862, 84735 #### [facility] [address] [place] [address], [facility] GFR/1.73 sq M predicted among non-blacks MDRD (S/P/Bld) [Vol rate/Area] mL/min/{1.73_m2} Normal >60 [facility] Comment on above: Order Comment: No: D o not add to previous draw Performed By: #### 5 6101, 26760, 95116, 15408, 88409, 54324, 17443 #### [facility] [address] [place] [address], [place] Glucose [Mass/Vol] 86 mg/dL Normal 70-100 [facility] Comment on above: Order Comment: No: D o not add to previous draw Performed By: #### 5 6101, 18270, 58973, 33941, 23774, 29096, 20066 #### [facility] [address] [place] [address], [facility] Potassium [Moles/Vol] 3.4 mmol/L Low 3.5-5.1 [facility] Comment on above: Order Comment: No: D o not add to previous draw Performed By: #### 5 6101, 05344, 51285, 63531, 50193, 24047, 31694 #### [facility] [address] [place] [address], [facility] Sodium [Moles/Vol] 129 mmol/L Low 136-145 [facility] Comment on above: Order Comment: No: D o not add to previous draw Performed By: #### 5 6101, 46895, 69607, 68349, 54514, 37694, 86340 #### [facility] [address] [place] [address], [facility] Urea nitrogen [Mass/Vol] 5 mg/dL Low 7-25 [facility] Comment on above: Order Comment: No: D o not add to previous draw Performed By: #### 5 6101, 56452, 22730, 95904, 43426, 91489, 45598 #### [facility] [address] [place] [id number], [facility] CALCIUM IONIZED CBGLon 11-03 IONIZED CALCIUM 1.07 mmol/L Low 1.12-1.30 [facility] Comment on above: Performed By: #### 5 6101, 39042, 07046, 97725, 90342, 89581, 44408 #### [facility] [address] [place] [address], [facility] CBC COMPLETE BLOOD COUNTon 1 01-04-2019 Erythrocyte distribution width (RBC) [Ratio] 14.5 % Normal 11.5-15.0 [facility] Comment on above: Order Comment: No: D o not add to previous draw Performed By: #### 5 6101, 52216, 19737, 53801, 70666, 90921, 54361 #### [facility] [address] [place] [address], [facility] Hematocrit (Bld) [Volume fraction] 22.1 % Low 39.0-50.0 [facility] Comment on above: Order Comment: No: D o not add to previous draw Performed By: #### 5 6101, 90815, 34796, 01441, 67570, 71450, 33126 #### [facility] [address] [place] [address], [facility] Hemoglobin (Bld) [Mass/Vol] 7.5 g/dL Low 13.0-17.0 [facility] Comment on above: Order Comment: No: D o not add to previous draw Performed By: #### 5 6101, 66308, 13423, 53250, 23170, 70613, 54403 #### [facility] [address] [place] [address], [facility] MCH (RBC) [Entitic mass] 30.9 pg Normal 27.0-33.0 [facility] Comment on above: Order Comment: No: D o not add to previous draw Performed By: #### 5 6101, 49885, 17352, 37741, 41246, 08835, 23871 #### [facility] [address] [place] [address], [facility] MCHC (RBC) [Mass/Vol] 33.9 g/dL Normal 32.0-35.0 [facility] Comment on above: Order Comment: No: D o not add to previous draw Performed By: #### 5 6101, 96443, 58011, 27729, 26011, 78857, 44061 #### [facility] [address] MCV (RBC) [Entitic vol] 90.9 fL Normal 82.0-98.0 [facility] Comment on above: Order Comment: No: D o not add to previous draw Performed By: #### 5 6101, 08857, 71054, 77970, 27222, 20888, 13328 #### [facility] [address] [place] [address], [facility] Nucleated RBC/100 WBC (Bld) [Ratio] 0 % Normal 0-0 [facility] Comment on above: Order Comment: No: D o not add to previous draw Performed By: #### 5 6101, 70225, 40994, 15016, 83625, 87480, 74948 #### [facility] [address] [place] [address], [facility] PLAT CNT 204 10*3/uL Normal 150-400 [facility] Comment on above: Order Comment: No: D o not add to previous draw Performed By: #### 5 6101, 93210, 28448, 15500, 49169, 86697, 32377 #### [facility] [address] [place] [address], [facility] RBC (Bld) [#/Vol] 2.43 10*6/uL Low 4.20-5.70 [facility] Comment on above: Order Comment: No: D o not add to previous draw Performed By: #### 5 6101, 34674, 33038, 94576, 69356, 65061, 41158 #### [facility] [address] [place] [id number], [place] WBC (Bld) [#/Vol] 19.35 10*3/uL High 4.00-10.60 [facility] Comment on above: Order Comment: No: D o not add to previous draw Performed By: #### 5 6101, 30947, 68948, 78421, 32957, 31375, 10011 #### [facility] [address] MAGNESIUM BLOODon 11-03-2019 Magnesium [Mass/Vol] 1.6 mg/dL Low 1.9-2.7 [facility] Comment on above: Order Comment: No: D o not add to previous draw Performed By: #### 5 6101, 53102, 97886, 34196, 23269, 71071, 41331 #### [facility] [address] PHOSPHORUS BLOODon 9 Phosphate [Mass/Vol] 2.6 mg/dL Normal 2.5-5.0 [facility] Comment on above: Order Comment: No: D o not add to previous draw Performed By: #### 5 6101, 88977, 41806, 01883, 21078, 25549, 14858 #### [facility] [address] Phosphate [Mass/Vol] 2.5 mg/dL Normal 2.5-5.0 [facility] Comment on above: Order Comment: No: D o not add to previous draw Performed By: #### 5 6101, 50696, 30921, 81632, 63708, 80169, 77915 #### [facility] [address] PROTHROMBIN TIMEon 9 INR Coag (PPP) [Relative time] 1.40 {INR} High 0.91-1.16 [facility] Comment on above: Order Comment: No: D o not add to previous draw Result Comment: ACCC P RECOMMENDED INR FOR WARFARIN THERAPY ------- ------- CONDITION INR PROPHYLAXIS OF VENOUS THROMBOSIS 2-3 (HIGH-RISK SURGERY) TREATMENT OF VENOUS THROMBOSIS 2-3 TREATMENT OF PULMONARY EMBOLISM 2-3 PREVENTION OF SYSTEMIC EMBOLISM: 2-3 ACUTE MYOCARDIAL INFARCTION TISSUE HEART VALVES VALVULAR HEART DISEASE ATRIAL FIBRILLATION RECURRENT SYSTEMIC EMBOLISM MECHANICAL HEART VALVE 2.5-3.5 FROM: ORAL ANTICOAGULANTS. MECHANISM OF ACTION, CLINICAL EFFECTIVENESS, AND OPTIMAL THERAPEUTIC RANGE. CHEST 1995;108:231S-246S. Performed By: #### 5 6101, 74953, 08583, 95052, 39763, 51908, 34006 #### [facility] [address] PT Coag (PPP) [Time] 17.3 s High 12.3-14.8 [facility] Comment on above: Order Comment: No: D o not add to previous draw Result Comment: ALL RESULTS MUST BE INTERPRETED WITH RESPECT TO BLOOD DRAWING ARTIFACT OR DILUTION ERROR OF ANTICOAGULANT AT THE TIME OF SAMPLING. Performed By: #### 5 6101, 87373, 64581, 81440, 10799, 60704, 43556 #### [facility] [address] [facility] [address] UFH HEPARIN ASSAYon 11-03-20 19 UNFRACTIONATED HEPARIN 0.21 IU/mL Low 0.30-0.70 [facility] Comment on above: Order Comment: Pt ca re Result Comment: [place] roxaban and Apixaban will interfere with the anti Xa assay used to monitor UFH and LMWH. Performed By: #### 5 6101, 55622, 88587, 32985, 42616, 85179, 68164 #### [facility] [address] [place] [address], [facility] UNFRACTIONATED HEPARIN 0.23 IU/mL Low 0.30-0.70 [facility] Comment on above: Result Comment: Jo Ann roxaban and Apixaban will interfere with the anti Xa assay used to monitor UFH and LMWH. Performed By: #### 5 6101, 51482, 88330, 10330, 96735, 07804, 25628 #### [facility] [address] [place] [address], [facility] UNFRACTIONATED HEPARIN 0.31 IU/mL Normal 0.30-0.70 [facility] Comment on above: Result Comment: Jo Ann roxaban and Apixaban will interfere with the anti Xa assay used to monitor UFH and LMWH. Performed By: #### 5 6101, 83452, 49745, 62315, 28677, 28966, 71263 #### [facility] [address] [place] [address], [facility] UNFRACTIONATED HEPARIN 0.30 IU/mL Normal 0.30-0.70 [facility] Comment on above: Order Comment: Pt re fused labs. Result Comment: [place] roxaban and Apixaban will interfere with the anti Xa assay used to monitor UFH and LMWH. Performed By: #### 5 6101, 26571, 92030, 90159, 72577, 50509, 34914 #### [facility] [address] [place] [address], [facility] BASIC METABOLIC PANELon 12-0 Calcium [Mass/Vol] 7.2 mg/dL Low 8.6-10.3 [facility] Comment on above: Order Comment: No: D o not add to previous draw Performed By: #### 5 6101, 38502, 45984, 14984, 81943, 87667, 37721 #### [facility] [address] [place] [address], [place] Chloride [Moles/Vol] 96 mmol/L Low 98-107 [facility] Comment on above: Order Comment: No: D o not add to previous draw Performed By: #### 5 6101, 50839, 11220, 59385, 16607, 53504, 97944 #### [facility] [address] [place] [address], [place] CO2 [Moles/Vol] 30 mmol/L Normal 21-31 [facility] Comment on above: Order Comment: No: D o not add to previous draw Performed By: #### 5 6101, 40915, 36245, 23610, 11150, 43511, 60340 #### [facility] [address] [place] [address], [facility] Creatinine [Mass/Vol] 0.45 mg/dL Low 0.70-1.30 [facility] Comment on above: Order Comment: No: D o not add to previous draw Performed By: #### 5 6101, 10646, 23344, 09170, 41986, 36975, 80677 #### [facility] [address] [place] [address], [facility] GFR/1.73 sq M predicted among blacks MDRD (S/P/Bld) [Vol rate/Area] mL/min/{1.73_m2} Normal >60 [facility] Comment on above: Order Comment: No: D o not add to previous draw Performed By: #### 5 6101, 93746, 34181, 32215, 67728, 67335, 44499 #### [facility] [address] [place] [address], [facility] GFR/1.73 sq M predicted among non-blacks MDRD (S/P/Bld) [Vol rate/Area] mL/min/{1.73_m2} Normal >60 [facility] Comment on above: Order Comment: No: D o not add to previous draw Performed By: #### 5 6101, 53593, 01421, 41804, 20415, 82581, 59626 #### [facility] [address] [place] [address], [place] Glucose [Mass/Vol] 94 mg/dL Normal 70-100 [facility] Comment on above: Order Comment: No: D o not add to previous draw Performed By: #### 5 6101, 95498, 69189, 60908, 66683, 06848, 01590 #### [facility] [address] [place] [address], [facility] Potassium [Moles/Vol] 3.3 mmol/L Low 3.5-5.1 [facility] Comment on above: Order Comment: No: D o not add to previous draw Performed By: #### 5 6101, 20036, 36891, 04357, 76309, 88922, 15744 #### [facility] [address] [place] [address], [facility] Sodium [Moles/Vol] 128 mmol/L Low 136-145 [facility] Comment on above: Order Comment: No: D o not add to previous draw Performed By: #### 5 6101, 79517, 68012, 67903, 40698, 18283, 21865 #### [facility] [address] Urea nitrogen [Mass/Vol] 5 mg/dL Low 7-25 [facility] Comment on above: Order Comment: No: D o not add to previous draw Performed By: #### 5 6101, 88968, 00179, 62548, 71955, 36609, 55369 #### [facility] [address] CALCIUMon 11-02-2019 Calcium [Mass/Vol] 7.2 mg/dL Low 8.6-10.3 [facility] Comment on above: Order Comment: No: D o not add to previous draw Performed By: #### 5 6101, 68921, 03325, 90053, 75144, 94489, 39451 #### [facility] [address] CBC COMPLETE BLOOD COUNTon 1 01-03-2019 Erythrocyte distribution width (RBC) [Ratio] 13.9 % Normal 11.5-15.0 [facility] Comment on above: Order Comment: No: D o not add to previous draw Performed By: #### 5 6101, 55044, 83559, 65294, 11281, 75531, 86342 #### [facility] [address] [place] [id number], [facility] Hematocrit (Bld) [Volume fraction] 21.4 % Low 39.0-50.0 [facility] Comment on above: Order Comment: No: D o not add to previous draw Performed By: #### 5 6101, 76161, 22479, 27266, 38041, 17995, 21434 #### [facility] [address] [place] [address], [facility] Hemoglobin (Bld) [Mass/Vol] 7.6 g/dL Low 13.0-17.0 [facility] Comment on above: Order Comment: No: D o not add to previous draw Performed By: #### 5 6101, 99671, 20013, 30981, 72197, 35278, 04684 #### [facility] [address] [place] [address], [facility] MCH (RBC) [Entitic mass] 31.1 pg Normal 27.0-33.0 [facility] Comment on above: Order Comment: No: D o not add to previous draw Performed By: #### 5 6101, 53170, 82344, 42036, 86720, 60545, 95793 #### [facility] [address] [place] [id number], [facility] MCHC (RBC) [Mass/Vol] 35.5 g/dL High 32.0-35.0 [facility] Comment on above: Order Comment: No: D o not add to previous draw Performed By: #### 5 6101, 70291, 45312, 99768, 30885, 59409, 92982 #### [facility] [address] [place] [address], [facility] MCV (RBC) [Entitic vol] 87.7 fL Normal 82.0-98.0 [facility] Comment on above: Order Comment: No: D o not add to previous draw Performed By: #### 5 6101, 83077, 07270, 13274, 51927, 41055, 67697 #### [facility] [address] [place] [address], [facility] Nucleated RBC/100 WBC (Bld) [Ratio] 0 % Normal 0-0 [facility] Comment on above: Order Comment: No: D o not add to previous draw Performed By: #### 5 6101, 51222, 11449, 21834, 88371, 02116, 55664 #### [facility] [address] [facility] [place] [address], [facility] PLAT CNT 144 10*3/uL Low 150-400 [facility] Comment on above: Order Comment: No: D o not add to previous draw Performed By: #### 5 6101, 97473, 49722, 09985, 95662, 86035, 48947 #### [facility] [address] [place] [address], [facility] RBC (Bld) [#/Vol] 2.44 10*6/uL Low 4.20-5.70 [facility] Comment on above: Order Comment: No: D o not add to previous draw Performed By: #### 5 6101, 60873, 00180, 42785, 93756, 84181, 80862 #### [facility] [address] [place] [address], [facility] WBC (Bld) [#/Vol] 16.13 10*3/uL High 4.00-10.60 [facility] Comment on above: Order Comment: No: D o not add to previous draw Performed By: #### 5 6101, 65407, 68550, 85613, 34113, 23408, 62306 #### [facility] [address] [place] [address], [facility] MAGNESIUM BLOODon 11-02-2019 Magnesium [Mass/Vol] 1.6 mg/dL Low 1.9-2.7 [facility] Comment on above: Order Comment: No: D o not add to previous draw Performed By: #### 5 6101, 28986, 57956, 95684, 79875, 40996, 33358 #### [facility] [address] [place] [address], [facility] PHOSPHORUS BLOODon 9 Phosphate [Mass/Vol] 2.5 mg/dL Normal 2.5-5.0 [facility] Comment on above: Order Comment: No: D o not add to previous draw Performed By: #### 5 6101, 40562, 03017, 52386, 06820, 34499, 67666 #### [facility] [address] UFH HEPARIN ASSAYon 11-02-20 19 UNFRACTIONATED HEPARIN 0.10 IU/mL Critically low 0.30-0.70 [facility] Comment on above: Result Comment: Jo Ann roxaban and Apixaban will interfere with the anti Xa assay used to monitor UFH and LMWH. RESULTS CHECKED AND CALLED. ACCURATELY READ BACK BY SUELLEN KAUR RN @ 2020 Performed By: #### 5 6101, 20402, 56578, 18474, 95222, 81859, 47906 #### [facility] [address] [place] [address], [facility] UNFRACTIONATED HEPARIN <0.10 Critically low 0.30-0.70 [facility] Comment on above: Result Comment: [place] roxaban and Apixaban will interfere with the anti Xa assay used to monitor UFH and LMWH. RESULTS CHECKED AND CALLED. ACCURATELY READ BACK BY JACOBY GREGORIO RN AT 18 Performed By: #### 5 6101, 93964, 26563, 57482, 28271, 61225, 86229 #### [facility] [address] [place] [address], [facility] BASIC METABOLIC PANELon 12-0 Calcium [Mass/Vol] 6.8 mg/dL Low 8.6-10.3 [facility] Comment on above: Order Comment: No: D o not add to previous draw Performed By: #### 5 6101, 47728, 40538, 44861, 40974, 97424, 42532 #### [facility] [address] [place] [address], [facility] Chloride [Moles/Vol] 95 mmol/L Low 98-107 [facility] Comment on above: Order Comment: No: D o not add to previous draw Performed By: #### 5 6101, 91565, 66081, 69905, 15952, 72998, 97940 #### [facility] [address] [place] [address], [facility] CO2 [Moles/Vol] 29 mmol/L Normal 21-31 [facility] Comment on above: Order Comment: No: D o not add to previous draw Performed By: #### 5 6101, 94912, 40010, 00839, 58631, 90789, 79237 #### [facility] [address] [place] [address], [facility] Creatinine [Mass/Vol] 0.43 mg/dL Low 0.70-1.30 [facility] Comment on above: Order Comment: No: D o not add to previous draw Performed By: #### 5 6101, 61002, 93435, 15607, 69336, 17810, 15072 #### [facility] [address] [place] [address], [place] GFR/1.73 sq M predicted among blacks MDRD (S/P/Bld) [Vol rate/Area] mL/min/{1.73_m2} Normal >60 [facility] Comment on above: Order Comment: No: D o not add to previous draw Performed By: #### 5 6101, 82666, 35012, 29533, 60747, 88253, 38538 #### [facility] [address] [place] [address], [facility] GFR/1.73 sq M predicted among non-blacks MDRD (S/P/Bld) [Vol rate/Area] mL/min/{1.73_m2} Normal >60 [facility] Comment on above: Order Comment: No: D o not add to previous draw Performed By: #### 5 6101, 00835, 19732, 87873, 61047, 23295, 05039 #### [facility] [address] [place] [id number], [facility] Glucose [Mass/Vol] 113 mg/dL High 70-100 [facility] Comment on above: Order Comment: No: D o not add to previous draw Performed By: #### 5 6101, 39891, 87405, 81547, 03864, 20301, 62671 #### [facility] [address] [place] [id number], [facility] Potassium [Moles/Vol] 3.0 mmol/L Low 3.5-5.1 [facility] Comment on above: Order Comment: No: D o not add to previous draw Performed By: #### 5 6101, 13559, 10223, 68369, 91828, 46004, 34571 #### [facility] [address] [place] [address], [place] Sodium [Moles/Vol] 131 mmol/L Low 136-145 [facility] Comment on above: Order Comment: No: D o not add to previous draw Performed By: #### 5 6101, 04964, 14553, 34343, 05640, 23720, 61823 #### [facility] [address] [place] [id number], [place] Urea nitrogen [Mass/Vol] 7 mg/dL Normal 7-25 [facility] Comment on above: Order Comment: No: D o not add to previous draw Performed By: #### 5 6101, 32767, 15066, 46695, 16346, 49980, 44794 #### [facility] [address] [facility]. [address] CALCIUM IONIZED CBGLon 11-01 IONIZED CALCIUM 1.01 mmol/L Low 1.12-1.30 [facility] Comment on above: Order Comment: Pt us ing restroom, come back Performed By: #### 5 6101, 78290, 54712, 67432, 13296, 14110, 12276 #### [facility] [address] CBC COMPLETE BLOOD COUNTon 1 01-02-2019 Erythrocyte distribution width (RBC) [Ratio] 14.2 % Normal 11.5-15.0 [facility] Comment on above: Order Comment: No: D o not add to previous draw Performed By: #### 5 6101, 92824, 16064, 74898, 39549, 65784, 84760 #### [facility] [address] [facility]. [address] Hematocrit (Bld) [Volume fraction] 18.2 % Low 39.0-50.0 [facility] Comment on above: Order Comment: No: D o not add to previous draw Performed By: #### 5 6101, 51464, 03183, 95746, 85400, 76813, 66506 #### [facility] [address] [facility] [address] Hemoglobin (Bld) [Mass/Vol] 6.5 g/dL Low 13.0-17.0 [facility] Comment on above: Order Comment: No: D o not add to previous draw Performed By: #### 5 6101, 59142, 51413, 64433, 05542, 70465, 26107 #### [facility] [address] [facility] [place] [address], [facility] IMM PLATELET FRAC 11.4 % High 0.8-6.3 [facility] Comment on above: Order Comment: No: D o not add to previous draw Performed By: #### 5 6101, 09429, 83634, 76511, 02351, 92118, 86363 #### [facility] [address] [place] [address], [facility] MCH (RBC) [Entitic mass] 31.4 pg Normal 27.0-33.0 [facility] Comment on above: Order Comment: No: D o not add to previous draw Performed By: #### 5 6101, 75638, 24600, 01328, 90504, 32255, 20938 #### [facility] [address] [facility] [place] [address], [facility] MCHC (RBC) [Mass/Vol] 35.7 g/dL High 32.0-35.0 [facility] Comment on above: Order Comment: No: D o not add to previous draw Performed By: #### 5 6101, 41019, 47678, 41728, 81254, 90269, 10153 #### [facility] [address] [facility] [place] [place] [address], [facility] MCV (RBC) [Entitic vol] 87.9 fL Normal 82.0-98.0 [facility] Comment on above: Order Comment: No: D o not add to previous draw Performed By: #### 5 6101, 41812, 54555, 59643, 32550, 14809, 46784 #### [facility] [address] [facility] [place] [address], [facility] Nucleated RBC/100 WBC (Bld) [Ratio] 0 % Normal 0-0 [facility] Comment on above: Order Comment: No: D o not add to previous draw Performed By: #### 5 6101, 04387, 52331, 44688, 43039, 56136, 18308 #### [facility] [address] [place] [address], [facility] PLAT CNT 86 10*3/uL Low 150-400 [facility] Comment on above: Order Comment: No: D o not add to previous draw Result Comment: P=82 23H Performed By: #### 5 6101, 21132, 74513, 36599, 86993, 96646, 78812 #### [facility] [address] [place] [id number], [facility] RBC (Bld) [#/Vol] 2.07 10*6/uL Low 4.20-5.70 [facility] Comment on above: Order Comment: No: D o not add to previous draw Performed By: #### 5 6101, 87334, 43773, 53110, 97657, 95510, 30935 #### [facility] [address] [place] [id number], [facility] WBC (Bld) [#/Vol] 16.52 10*3/uL High 4.00-10.60 [facility] Comment on above: Order Comment: No: D o not add to previous draw Performed By: #### 5 6101, 98522, 23861, 27492, 55930, 84210, 25488 #### [facility] [address] [place] [address], [facility] HEMOGLOBINon 11-01-2019 Hemoglobin (Bld) [Mass/Vol] 8.1 g/dL Low 13.0-17.0 [facility] Comment on above: Order Comment: No: D o not add to previous draw Performed By: #### 5 6101, 96014, 75050, 96870, 49869, 67363, 34054 #### [facility] [address] [place] [address], [facility] Hemoglobin (Bld) [Mass/Vol] 6.3 g/dL Low 13.0-17.0 [facility] Comment on above: Order Comment: No: D o not add to previous draw Performed By: #### 5 6101, 69409, 80450, 77137, 50566, 43139, 64058 #### [facility] [address] [place] [address], [facility] PLATELET COUNTon 11-01-2019 Platelets (Bld) [#/Vol] 102 10*3/uL Low 150-400 [facility] Comment on above: Order Comment: No: D o not add to previous draw Performed By: #### 5 6101, 28306, 34320, 75724, 13906, 76433, 32333 #### [facility] [address] RBC'S 2 UNITSon 11-01-2019 CROSSMATCH INTERP 1 COMP Normal [facility] Comment on above: Order Comment: Hemog lobin < 7gm/dl Performed By: #### 5 6101, 95147, 66999, 72313, 33960, 97286, 71837 #### [facility] [address] CROSSMATCH INTERP 2 COMP Normal [facility] Comment on above: Order Comment: Hemog lobin < 7gm/dl Performed By: #### 5 6101, 32329, 20356, 14307, 39427, 12678, 46935 #### [facility] [address] [place] [address], [facility] PRODUCT CODE 1 E0336 Normal [facility] Comment on above: Order Comment: Hemog lobin < 7gm/dl Performed By: #### 5 [id number], [id number], 48097, 41703, 40029, 70982, 94221 #### [facility] [address] [place] [id number], [facility] PRODUCT CODE 2 E0685 Normal [facility] Comment on above: Order Comment: Hemog lobin < 7gm/dl Performed By: #### 5 6101, 11641, 80059, 05621, 66811, 42611, 33287 #### [facility] [address] [place] [id number], [facility] PRODUCT STATUS 1 PT Normal [facility] Comment on above: Order Comment: Hemog lobin < 7gm/dl Result Comment: Resu lt changed by IF on 11/01/2019 11:43. The previous value was XM. Result changed by IF on 11/02/2019 00:30. The previous value was IS. Performed By: #### 5 6101, 86993, 96517, 71604, 47094, 37527, 66925 #### [facility] [address] PRODUCT STATUS 2 PT Normal [facility] Comment on above: Order Comment: Hemog lobin < 7gm/dl Result Comment: Resu lt changed by IF on 11/01/2019 09:35. The previous value was XM. Result changed by IF on 11/02/2019 00:30. The previous value was IS. Performed By: #### 5 6101, 68754, 63498, 64159, 66324, 94039, 34736 #### [facility] [address] UNIT ABO 1 O Normal [facility] Comment on above: Order Comment: Hemog lobin < 7gm/dl Performed By: #### 5 6101, 14495, 25156, 49575, 23069, 73770, 89844 #### [facility] [address] UNIT ABO 2 O Normal [facility] Comment on above: Order Comment: Hemog lobin < 7gm/dl Performed By: #### 5 6101, 69360, 40334, 35714, 30193, 56073, 82053 #### [facility] [address] UNIT ID 1 [id number] Normal [facility] Comment on above: Order Comment: Hemog lobin < 7gm/dl Performed By: #### 5 6101, 82531, 04314, 66464, 91225, 28261, 20795 #### [facility] [address] UNIT ID 2 [id number] Normal [facility] Comment on above: Order Comment: Hemog lobin < 7gm/dl Performed By: #### 5 6101, 69315, 92470, 35539, 72393, 01558, 31502 #### [facility] [address] [facility] [address] UNIT RH 1 Positive Normal [facility] Comment on above: Order Comment: Hemog lobin < 7gm/dl Performed By: #### 5 6101, 17929, 65870, 91487, 32210, 82802, 10375 #### [facility] [address] [facility]. [address] UNIT RH 2 Positive Normal [facility] Comment on above: Order Comment: Hemog lobin < 7gm/dl Performed By: #### 5 6101, 92813, 70779, 62441, 52364, 41876, 51395 #### [facility] [address] [facility]. [address] TYPE AND SCREENon 11-01-2019 ABO INTERPRETATION O Normal [facility] Comment on above: Performed By: #### 5 6101, 33107, 72498, 52500, 82631, 27367, 75786 #### [facility] [address] [facility]. [address] RH INTERPRETATION Positive Normal [facility] Comment on above: Performed By: #### 5 6101, 96715, 83775, 54326, 58159, 53896, 38475 #### [facility] [address] [facility]. [address] UFH HEPARIN ASSAYon 11-01-20 19 UNFRACTIONATED HEPARIN 0.91 IU/mL Critically high 0.30-0.70 [facility] Comment on above: Result Comment: Jo Ann roxaban and Apixaban will interfere with the anti Xa assay used to monitor UFH and LMWH. RESULTS CHECKED AND CALLED. ACCURATELY READ BACK BY STACY ZENG RN AT 0622 Performed By: #### 5 6101, 91253, 21965, 67859, 16300, 53243, 99468 #### [facility] [address] [place] [id number], [facility] BASIC METABOLIC PANELon 12-0 Calcium [Mass/Vol] 7.4 mg/dL Low 8.6-10.3 [facility] Comment on above: Order Comment: No: D o not add to previous draw Performed By: #### 5 6101, 03398, 65314, 30860, 52368, 55975, 57633 #### [facility] [address] [place] [address], [facility] Chloride [Moles/Vol] 98 mmol/L Normal 98-107 [facility] Comment on above: Order Comment: No: D o not add to previous draw Performed By: #### 5 6101, 94788, 35816, 37434, 91589, 20860, 20529 #### [facility] [address] [place] [address], [facility] CO2 [Moles/Vol] 31 mmol/L Normal 21-31 [facility] Comment on above: Order Comment: No: D o not add to previous draw Performed By: #### 5 6101, 74775, 56334, 19260, 58320, 15251, 58435 #### [facility] [address] [place] [address], [place] Creatinine [Mass/Vol] 0.55 mg/dL Low 0.70-1.30 [facility] Comment on above: Order Comment: No: D o not add to previous draw Performed By: #### 5 6101, 14820, 90738, 38067, 61910, 46266, 04380 #### [facility] [address] [place] [id number], [place] GFR/1.73 sq M predicted among blacks MDRD (S/P/Bld) [Vol rate/Area] mL/min/{1.73_m2} Normal >60 [facility] Comment on above: Order Comment: No: D o not add to previous draw Performed By: #### 5 6101, 70223, 05592, 95591, 46630, 86530, 89379 #### [facility] [address] [place] [address], [facility] GFR/1.73 sq M predicted among non-blacks MDRD (S/P/Bld) [Vol rate/Area] mL/min/{1.73_m2} Normal >60 [facility] Comment on above: Order Comment: No: D o not add to previous draw Performed By: #### 5 6101, 53231, 53838, 68729, 67173, 54466, 87477 #### [facility] [address] [place] [address], [facility] Glucose [Mass/Vol] 94 mg/dL Normal 70-100 [facility] Comment on above: Order Comment: No: D o not add to previous draw Performed By: #### 5 6101, 80796, 89436, 17546, 35188, 54463, 87314 #### [facility] [address] [place] [address], [facility] Potassium [Moles/Vol] 3.1 mmol/L Low 3.5-5.1 [facility] Comment on above: Order Comment: No: D o not add to previous draw Performed By: #### 5 6101, 76395, 67285, 07333, 79869, 35289, 38977 #### [facility] [address] [place] [address], [facility] Sodium [Moles/Vol] 133 mmol/L Low 136-145 [facility] Comment on above: Order Comment: No: D o not add to previous draw Performed By: #### 5 6101, 77685, 05247, 96613, 98217, 03468, 81845 #### [facility] [address] [place] [address], [facility] Urea nitrogen [Mass/Vol] 9 mg/dL Normal 7-25 [facility] Comment on above: Order Comment: No: D o not add to previous draw Performed By: #### 5 6101, 29898, 89828, 16402, 58645, 24148, 85139 #### [facility] [address] CBC COMPLETE BLOOD COUNTon 01-01-2019 Erythrocyte distribution width (RBC) [Ratio] 14.4 % Normal 11.5-15.0 [facility] Comment on above: Order Comment: No: D o not add to previous draw Performed By: #### 5 6101, 59667, 02791, 48557, 79277, 14161, 86482 #### [facility] [address] Hematocrit (Bld) [Volume fraction] 27.3 % Low 39.0-50.0 [facility] Comment on above: Order Comment: No: D o not add to previous draw Performed By: #### 5 6101, 80671, 78833, 31284, 09803, 85169, 28046 #### [facility] [address] Hemoglobin (Bld) [Mass/Vol] 9.5 g/dL Low 13.0-17.0 [facility] Comment on above: Order Comment: No: D o not add to previous draw Performed By: #### 5 6101, 80281, 35972, 09786, 70692, 65622, 98731 #### [facility] [address] [place] [address], [facility] IMM PLATELET FRAC 10.7 % High 0.8-6.3 [facility] Comment on above: Order Comment: No: D o not add to previous draw Performed By: #### 5 6101, 88192, 55941, 74866, 73131, 51136, 26090 #### [facility] [address] [place] [address], [facility] MCH (RBC) [Entitic mass] 30.9 pg Normal 27.0-33.0 [facility] Comment on above: Order Comment: No: D o not add to previous draw Performed By: #### 5 6101, 42869, 23094, 39755, 84514, 33729, 26152 #### [facility] [address] [facility] [place] [id number], [facility] MCHC (RBC) [Mass/Vol] 34.8 g/dL Normal 32.0-35.0 [facility] Comment on above: Order Comment: No: D o not add to previous draw Performed By: #### 5 6101, 94533, 87227, 54575, 47279, 79859, 88140 #### [facility] [address] [facility] [place] [address], [facility] MCV (RBC) [Entitic vol] 88.9 fL Normal 82.0-98.0 [facility] Comment on above: Order Comment: No: D o not add to previous draw Performed By: #### 5 6101, 20563, 26044, 07767, 74290, 21232, 01482 #### [facility] [address] [facility] [place] [address], [facility] Nucleated RBC/100 WBC (Bld) [Ratio] 0 % Normal 0-0 [facility] Comment on above: Order Comment: No: D o not add to previous draw Performed By: #### 5 6101, 67527, 75401, 19758, 12426, 45038, 11749 #### [facility] [address] [facility] [place] [address], [facility] PLAT CNT 82 10*3/uL Low 150-400 [facility] Comment on above: Order Comment: No: D o not add to previous draw Result Comment: P = 77 Performed By: #### 5 6101, 50404, 65617, 51087, 90883, 45452, 09345 #### [facility] [address] [place] [address], [facility] RBC (Bld) [#/Vol] 3.07 10*6/uL Low 4.20-5.70 [facility] Comment on above: Order Comment: No: D o not add to previous draw Performed By: #### 5 6101, 55608, 38666, 80677, 60277, 73151, 26879 #### [facility] [address] [place] [address], [facility] WBC (Bld) [#/Vol] 13.09 10*3/uL High 4.00-10.60 [facility] Comment on above: Order Comment: No: D o not add to previous draw Performed By: #### 5 6101, 24757, 14131, 19120, 85504, 87575, 23745 #### [facility] [address] [place] [address], [facility] MAGNESIUM BLOODon 10-31-2019 Magnesium [Mass/Vol] 1.9 mg/dL Normal 1.9-2.7 [facility] Comment on above: Order Comment: No: D o not add to previous draw Performed By: #### 5 6101, 14889, 91541, 03739, 14075, 59143, 89448 #### [facility] [address] UFH HEPARIN ASSAYon 10-31-20 19 UNFRACTIONATED HEPARIN 0.52 IU/mL Normal 0.30-0.70 [facility] Comment on above: Result Comment: Roosevelt roxaban and Apixaban will interfere with the anti Xa assay used to monitor UFH and LMWH. Performed By: #### 5 6101, 11391, 26329, 80078, 57588, 73962, 81835 #### [facility] [address] [place] [address], [facility] BASIC METABOLIC PANELon 12-0 Calcium [Mass/Vol] 7.4 mg/dL Low 8.6-10.3 [facility] Comment on above: Order Comment: No: D o not add to previous draw Performed By: #### 5 6101, 81313, 43765, 32089, 95791, 87299, 88985 #### [facility] [address] [place] [address], [facility] Chloride [Moles/Vol] 97 mmol/L Low 98-107 [facility] Comment on above: Order Comment: No: D o not add to previous draw Performed By: #### 5 6101, 31362, 55074, 32104, 60478, 20427, 00456 #### [facility] [address] [place] [address], [facility] CO2 [Moles/Vol] 31 mmol/L Normal 21-31 [facility] Comment on above: Order Comment: No: D o not add to previous draw Performed By: #### 5 6101, 51760, 15455, 47364, 92389, 78038, 33563 #### [facility] [address] [place] [address], [facility] Creatinine [Mass/Vol] 0.55 mg/dL Low 0.70-1.30 [facility] Comment on above: Order Comment: No: D o not add to previous draw Performed By: #### 5 6101, 06585, 21343, 25255, 27833, 29336, 25976 #### [facility] [address] [place] [address], [facility] GFR/1.73 sq M predicted among blacks MDRD (S/P/Bld) [Vol rate/Area] mL/min/{1.73_m2} Normal >60 [facility] Comment on above: Order Comment: No: D o not add to previous draw Performed By: #### 5 6101, 50218, 57920, 59633, 80484, 95854, 19415 #### [facility] [address] [place] [address], [facility] GFR/1.73 sq M predicted among non-blacks MDRD (S/P/Bld) [Vol rate/Area] mL/min/{1.73_m2} Normal >60 [facility] Comment on above: Order Comment: No: D o not add to previous draw Performed By: #### 5 6101, 60174, 48024, 56266, 45868, 13442, 30857 #### [facility] [address] [place] [address], [facility] Glucose [Mass/Vol] 111 mg/dL High 70-100 [facility] Comment on above: Order Comment: No: D o not add to previous draw Performed By: #### 5 6101, 49744, 89165, 84703, 22918, 75287, 80709 #### [facility] [address] [place] [address], [facility] Potassium [Moles/Vol] 3.4 mmol/L Low 3.5-5.1 [facility] Comment on above: Order Comment: No: D o not add to previous draw Performed By: #### 5 6101, 29314, 38078, 36828, 38065, 58215, 99345 #### [facility] [address] [place] [address], [place] Sodium [Moles/Vol] 134 mmol/L Low 136-145 [facility] Comment on above: Order Comment: No: D o not add to previous draw Performed By: #### 5 6101, 78453, 51724, 46525, 07546, 19814, 47695 #### [facility] [address] [place] [address], [place] Urea nitrogen [Mass/Vol] 10 mg/dL Normal 7-25 [facility] Comment on above: Order Comment: No: D o not add to previous draw Performed By: #### 5 6101, 62628, 36507, 89197, 78986, 57351, 90391 #### [facility] [address] CBC COMPLETE BLOOD COUNTon 1 12-31-2018 Erythrocyte distribution width (RBC) [Ratio] 14.1 % Normal 11.5-15.0 [facility] Comment on above: Order Comment: No: D o not add to previous draw Performed By: #### 5 6101, 14630, 29299, 83922, 70745, 82347, 31555 #### [facility] [address] [facility] [address] Hematocrit (Bld) [Volume fraction] 32.9 % Low 39.0-50.0 [facility] Comment on above: Order Comment: No: D o not add to previous draw Performed By: #### 5 6101, 68539, 39838, 09723, 86529, 24194, 59492 #### [facility] [address] Hemoglobin (Bld) [Mass/Vol] 11.3 g/dL Low 13.0-17.0 [facility] Comment on above: Order Comment: No: D o not add to previous draw Performed By: #### 5 6101, 44393, 37569, 98188, 91707, 22165, 87712 #### [facility] [address] [facility] IMM PLATELET FRAC 6.4 % High 0.8-6.3 [facility] Comment on above: Order Comment: No: D o not add to previous draw Performed By: #### 5 6101, 35157, 66179, 69944, 51599, 15667, 39491 #### [facility] [address] [place] [address], [facility] MCH (RBC) [Entitic mass] 30.9 pg Normal 27.0-33.0 [facility] Comment on above: Order Comment: No: D o not add to previous draw Performed By: #### 5 6101, 41219, 87274, 26342, 00032, 97215, 06667 #### [facility] [address] [place] [address], [facility] MCHC (RBC) [Mass/Vol] 34.3 g/dL Normal 32.0-35.0 [facility] Comment on above: Order Comment: No: D o not add to previous draw Performed By: #### 5 6101, 39716, 36623, 72068, 91434, 24819, 74480 #### [facility] [address] [place] [address], [facility] MCV (RBC) [Entitic vol] 89.9 fL Normal 82.0-98.0 [facility] Comment on above: Order Comment: No: D o not add to previous draw Performed By: #### 5 6101, 67173, 00672, 21394, 10218, 66383, 12449 #### [facility] [address] [place] [address], [facility] Nucleated RBC/100 WBC (Bld) [Ratio] 0 % Normal 0-0 [facility] Comment on above: Order Comment: No: D o not add to previous draw Performed By: #### 5 6101, 92328, 90533, 42162, 47808, 93526, 88963 #### [facility] [address] [place] [address], [facility] PLAT CNT 77 10*3/uL Low 150-400 [facility] Comment on above: Order Comment: No: D o not add to previous draw Performed By: #### 5 6101, 24196, 97472, 50006, 31691, 61855, 20935 #### [facility] [address] [place] [id number], [facility] RBC (Bld) [#/Vol] 3.66 10*6/uL Low 4.20-5.70 [facility] Comment on above: Order Comment: No: D o not add to previous draw Performed By: #### 5 6101, 24240, 55906, 44675, 89364, 51804, 76722 #### [facility] [address] WBC (Bld) [#/Vol] 11.15 10*3/uL High 4.00-10.60 [facility] Comment on above: Order Comment: No: D o not add to previous draw Performed By: #### 5 6101, 68337, 53596, 37333, 79646, 88835, 72998 #### [facility] [address] LACTATE BLOODon 10-30-2019 Lactate [Moles/Vol] 0.7 mmol/L Normal 0.5-2.2 [facility] Comment on above: Order Comment: No: D o not add to previous draw Performed By: #### 5 6101, 15994, 21609, 13209, 94307, 05485, 20483 #### [facility] [address] [facility] LIVER BATTERYon 10-30-2019 Albumin [Mass/Vol] 2.1 g/dL Low 3.5-5.7 [facility] Comment on above: Order Comment: No: D o not add to previous draw Performed By: #### 5 6101, 06424, 30682, 78569, 81930, 69767, 65995 #### [facility] [address] ALKALINE PHOSPH 113 IU/L High 34-104 [facility] Comment on above: Order Comment: No: D o not add to previous draw Performed By: #### 5 6101, 94053, 96249, 60326, 41322, 34381, 02353 #### [facility] [address] [place] [address], [facility] ALT [Catalytic activity/Vol] 28 U/L Normal 7-52 [facility] Comment on above: Order Comment: No: D o not add to previous draw Performed By: #### 5 6101, 11162, 64106, 43465, 99292, 81239, 60516 #### [facility] [address] [place] [address], [place] AST [Catalytic activity/Vol] 19 U/L Normal 13-39 [facility] Comment on above: Order Comment: No: D o not add to previous draw Performed By: #### 5 6101, 69413, 99794, 72281, 11884, 75251, 84083 #### [facility] [address] [place] [address], [place] Bilirubin [Mass/Vol] 2.8 mg/dL High 0.3-1.0 [facility] Comment on above: Order Comment: No: D o not add to previous draw Performed By: #### 5 6101, 35848, 70850, 00446, 09725, 97305, 89329 #### [facility] [address] [place] [address], [facility] Bilirubin.direct [Mass/Vol] 1.9 mg/dL High 0.0-0.2 [facility] Comment on above: Order Comment: No: D o not add to previous draw Performed By: #### 5 6101, 37870, 47805, 20551, 31989, 24590, 32516 #### [facility] [address] [place] [address], [place] Protein [Mass/Vol] 4.7 g/dL Low 6.0-8.3 [facility] Comment on above: Order Comment: No: D o not add to previous draw Performed By: #### 5 6101, 88265, 72763, 78997, 93724, 65855, 39758 #### [facility] [address] [place] [address], [facility] MAGNESIUM BLOODon 10-30-2019 Magnesium [Mass/Vol] 2.0 mg/dL Normal 1.9-2.7 [facility] Comment on above: Order Comment: No: D o not add to previous draw Performed By: #### 5 6101, 58788, 34053, 69317, 44072, 30590, 99934 #### [facility] [address] [place] [address], [facility] PHOSPHORUS BLOODon 9 Phosphate [Mass/Vol] 3.3 mg/dL Normal 2.5-5.0 [facility] Comment on above: Order Comment: No: D o not add to previous draw Performed By: #### 5 6101, 50664, 07883, 50675, 78372, 96187, 27326 #### [facility] [address] [facility] UFH HEPARIN ASSAYon 10-30-20 19 UNFRACTIONATED HEPARIN 0.43 IU/mL Normal 0.30-0.70 [facility] Comment on above: Result Comment: [place] roxaban and Apixaban will interfere with the anti Xa assay used to monitor UFH and LMWH. Performed By: #### 5 6101, 11641, 27558, 05420, 89488, 86125, 68917 #### [facility] [address] [facility] [facility] BASIC METABOLIC PANELon 11-3 Calcium [Mass/Vol] 7.3 mg/dL Low 8.6-10.3 [facility] Comment on above: Order Comment: No: D o not add to previous draw Performed By: #### 5 6101, 64971, 13633, 04457, 92023, 25488, 14020 #### [facility] [address] [place] [address], [facility] Chloride [Moles/Vol] 95 mmol/L Low 98-107 [facility] Comment on above: Order Comment: No: D o not add to previous draw Performed By: #### 5 6101, 51628, 40163, 14436, 09057, 48134, 30096 #### [facility] [address] [place] [address], [facility] CO2 [Moles/Vol] 33 mmol/L High 21-31 [facility] Comment on above: Order Comment: No: D o not add to previous draw Performed By: #### 5 6101, 91246, 53167, 72877, 91762, 05920, 82446 #### [facility] [address] [place] [address], [facility] Creatinine [Mass/Vol] 0.63 mg/dL Low 0.70-1.30 [facility] Comment on above: Order Comment: No: D o not add to previous draw Performed By: #### 5 6101, 70480, 98933, 50705, 61087, 65117, 50550 #### [facility] [address] [place] [address], [facility] GFR/1.73 sq M predicted among blacks MDRD (S/P/Bld) [Vol rate/Area] mL/min/{1.73_m2} Normal >60 [facility] Comment on above: Order Comment: No: D o not add to previous draw Performed By: #### 5 6101, 27845, 49282, 03403, 01925, 60218, 14753 #### [facility] [address] [place] [address], [facility] GFR/1.73 sq M predicted among non-blacks MDRD (S/P/Bld) [Vol rate/Area] mL/min/{1.73_m2} Normal >60 [facility] Comment on above: Order Comment: No: D o not add to previous draw Performed By: #### 5 6101, 85564, 02368, 07695, 65051, 20673, 66924 #### [facility] [address] [place] [address], [facility] Glucose [Mass/Vol] 134 mg/dL High 70-100 [facility] Comment on above: Order Comment: No: D o not add to previous draw Performed By: #### 5 6101, 76185, 03045, 42822, 10596, 31663, 67002 #### [facility] [address] [place] [address], [facility] Potassium [Moles/Vol] 3.8 mmol/L Normal 3.5-5.1 [facility] Comment on above: Order Comment: No: D o not add to previous draw Performed By: #### 5 6101, 55877, 31884, 34212, 03223, 57048, 94566 #### [facility] [address] [place] [address], [facility] Sodium [Moles/Vol] 132 mmol/L Low 136-145 [facility] Comment on above: Order Comment: No: D o not add to previous draw Performed By: #### 5 6101, 64599, 71010, 89725, 28074, 00149, 76178 #### [facility] [address] [facility] [place] [address], [facility] Urea nitrogen [Mass/Vol] 10 mg/dL Normal 7-25 [facility] Comment on above: Order Comment: No: D o not add to previous draw Performed By: #### 5 6101, 39028, 32377, 74514, 74513, 02564, 01616 #### [facility] [address] [place] [address], [facility] CBC W/DIFFon 10-29-2019 ABS BASOPHILS 0.1 10*3/uL Normal 0.0-0.2 [facility] Comment on above: Order Comment: No: D o not add to previous draw Performed By: #### 8 4511 #### [facility] [address] [place] [address], [facility] ABS IMM GRANS 0.2 10*3/uL Normal 0.0-0.2 [facility] Comment on above: Order Comment: No: D o not add to previous draw Performed By: #### 8 4511 #### [facility] [address] [place] [address], [facility] ABS NEUTROPHILS 12.1 10*3/uL High 1.6-7.6 [facility] Comment on above: Order Comment: No: D o not add to previous draw Performed By: #### 8 4511 #### [facility] [address] [place] [id number], [facility] Basophils/100 WBC (Bld) 0.4 % Normal 0.0-1.0 [facility] Comment on above: Order Comment: No: D o not add to previous draw Performed By: #### 8 4511 #### [facility] [address] [place] [address], [facility] MAXINE CELLS Moderate Normal [facility] Comment on above: Order Comment: No: D o not add to previous draw Performed By: #### 8 4511 #### [facility] [address] [place] [address], [facility] Eosinophils (Bld) [#/Vol] 0.0 10*3/uL Normal 0.0-0.5 [facility] Comment on above: Order Comment: No: D o not add to previous draw Performed By: #### 8 4511 #### [facility] [address] [place] [address], [facility] Eosinophils/100 WBC (Bld) 0.0 % Normal 0.0-6.0 [facility] Comment on above: Order Comment: No: D o not add to previous draw Performed By: #### 8 4511 #### [facility] [address] [place] [address], [facility] Erythrocyte distribution width (RBC) [Ratio] 14.2 % Normal 11.5-15.0 [facility] Comment on above: Order Comment: No: D o not add to previous draw Performed By: #### 8 4511 #### [facility] [address] [place] [address], [facility] Hematocrit (Bld) [Volume fraction] 34.8 % Low 39.0-50.0 [facility] Comment on above: Order Comment: No: D o not add to previous draw Performed By: #### 8 4511 #### [facility] [address] [place] [id number], [facility] Hemoglobin (Bld) [Mass/Vol] 12.3 g/dL Low 13.0-17.0 [facility] Comment on above: Order Comment: No: D o not add to previous draw Performed By: #### 8 4511 #### [facility] [address] [place] [address], [facility] IMM PLATELET FRAC 7.9 % High 0.8-6.3 [facility] Comment on above: Order Comment: No: D o not add to previous draw Performed By: #### 8 4511 #### [facility] [address] [place] [address], [facility] IMMATURE GRANS 1.1 % High 0.0-1.0 [facility] Comment on above: Order Comment: No: D o not add to previous draw Performed By: #### 8 4511 #### [facility] [address] [place] [id number], [facility] Lymphocytes (Bld) [#/Vol] 0.7 10*3/uL Low 1.2-4.0 [facility] Comment on above: Order Comment: No: D o not add to previous draw Performed By: #### 8 4511 #### [facility] [address] [place] [id number], [place] Lymphocytes/100 WBC (Bld) 5.2 % Low 20.0-45.0 [facility] Comment on above: Order Comment: No: D o not add to previous draw Performed By: #### 8 4511 #### [facility] [address] [place] [address], [facility] MCH (RBC) [Entitic mass] 31.2 pg Normal 27.0-33.0 [facility] Comment on above: Order Comment: No: D o not add to previous draw Performed By: #### 8 4511 #### [facility] [address] [place] [address], [place] MCHC (RBC) [Mass/Vol] 35.3 g/dL High 32.0-35.0 [facility] Comment on above: Order Comment: No: D o not add to previous draw Performed By: #### 8 4511 #### [facility] [address] [place] [address], [facility] MCV (RBC) [Entitic vol] 88.3 fL Normal 82.0-98.0 [facility] Comment on above: Order Comment: No: D o not add to previous draw Performed By: #### 8 4511 #### [facility] [address] [place] [address], [facility] Monocytes (Bld) [#/Vol] 0.5 10*3/uL Normal 0.1-1.0 [facility] Comment on above: Order Comment: No: D o not add to previous draw Performed By: #### 8 4511 #### [facility] [address] [place] [address], [place] MONOS 3.4 % Low 5.0-12.0 [facility] Comment on above: Order Comment: No: D o not add to previous draw Performed By: #### 8 4511 #### [facility] [address] [place] [address], [place] Neutrophils (Bld) [#/Vol] Slight Normal [facility] Comment on above: Order Comment: No: D o not add to previous draw Performed By: #### 8 4511 #### [facility] [address] [place] [address], [facility] Neutrophils/100 WBC (Bld) 89.9 % High 40.0-72.0 [facility] Comment on above: Order Comment: No: D o not add to previous draw Performed By: #### 8 4511 #### [facility] [address] [place] [address], [facility] Nucleated RBC/100 WBC (Bld) [Ratio] 0 % Normal 0-0 [facility] Comment on above: Order Comment: No: D o not add to previous draw Performed By: #### 8 4511 #### [facility] [address] [place] [address], [facility] OTHER 2 Checked by Jennifer Cabrera M.D. Normal [facility] Comment on above: Order Comment: No: D o not add to previous draw Result Comment: Resu lt changed by LIOR on 10/31/2019 14:05. The previous value was Preliminary report; verified report to follow. Performed By: #### 8 4511 #### [facility] [address] [facility] [place] [address], [facility] PLAT CNT 76 10*3/uL Low 150-400 [facility] Comment on above: Order Comment: No: D o not add to previous draw Performed By: #### 8 4511 #### [facility] [address] [place] [address], [facility] POIK Moderate Normal [facility] Comment on above: Order Comment: No: D o not add to previous draw Performed By: #### 8 4511 #### [facility] [address] [place] [address], [facility] RBC (Bld) [#/Vol] 3.94 10*6/uL Low 4.20-5.70 [facility] Comment on above: Order Comment: No: D o not add to previous draw Performed By: #### 8 4511 #### [facility] [address] [place] [address], [facility] TARGET CELLS Slight Normal [facility] Comment on above: Order Comment: No: D o not add to previous draw Performed By: #### 8 4511 #### [facility] [address] [place] [address], [place] TOXIC GRANULATION Marked Normal [facility] Comment on above: Order Comment: No: D o not add to previous draw Performed By: #### 8 4511 #### [facility] [address] [place] [address], [facility] WBC (Bld) [#/Vol] 13.45 10*3/uL High 4.00-10.60 [facility] Comment on above: Order Comment: No: D o not add to previous draw Performed By: #### 8 4511 #### [facility] [address] [place] [address], [facility] LACTATE BLOODon 10-29-2019 Lactate [Moles/Vol] 1.3 mmol/L Normal 0.5-2.2 [facility] Comment on above: Order Comment: No: D o not add to previous draw Performed By: #### 5 6101, 12191, 25045, 51781, 76660, 10056, 78314 #### [facility] [address] [place] [address], [place] LIVER BATTERYon 10-29-2019 Albumin [Mass/Vol] 2.1 g/dL Low 3.5-5.7 [facility] Comment on above: Order Comment: No: D o not add to previous draw Performed By: #### 5 6101, 10529, 44108, 33913, 93665, 85209, 73124 #### [facility] [address] [place] [address], [place] ALKALINE PHOSPH 133 IU/L High 34-104 [facility] Comment on above: Order Comment: No: D o not add to previous draw Performed By: #### 5 6101, 28266, 56321, 52226, 45636, 85210, 78929 #### [facility] [address] [place] [address], [place] ALT [Catalytic activity/Vol] 34 U/L Normal 7-52 [facility] Comment on above: Order Comment: No: D o not add to previous draw Performed By: #### 5 6101, 50426, 25092, 59740, 25163, 54159, 07454 #### [facility] [address] [place] [address], [place] AST [Catalytic activity/Vol] 23 U/L Normal 13-39 [facility] Comment on above: Order Comment: No: D o not add to previous draw Performed By: #### 5 6101, 91852, 36230, 86661, 40356, 37903, 76981 #### [facility] [address] [place] [address], [place] Bilirubin [Mass/Vol] 3.0 mg/dL High 0.3-1.0 [facility] Comment on above: Order Comment: No: D o not add to previous draw Performed By: #### 5 6101, 24032, 81120, 11398, 19392, 25990, 70473 #### [facility] [address] [place] [address], [place] Bilirubin.direct [Mass/Vol] 2.2 mg/dL High 0.0-0.2 [facility] Comment on above: Order Comment: No: D o not add to previous draw Performed By: #### 5 6101, 01845, 52122, 46854, 68005, 83274, 87609 #### [facility] [address] [place] [address], [place] Protein [Mass/Vol] 4.7 g/dL Low 6.0-8.3 [facility] Comment on above: Order Comment: No: D o not add to previous draw Performed By: #### 5 6101, 02502, 61399, 32926, 13872, 54518, 08639 #### [facility] [address] MAGNESIUM BLOODon 10-29-2019 Magnesium [Mass/Vol] 1.9 mg/dL Normal 1.9-2.7 [facility] Comment on above: Order Comment: No: D o not add to previous draw Performed By: #### 8 4511 #### [facility] [address] [place] [address], [facility] PHOSPHORUS BLOODon 9 Phosphate [Mass/Vol] 3.5 mg/dL Normal 2.5-5.0 [facility] Comment on above: Order Comment: No: D o not add to previous draw Performed By: #### 5 6101, 93084, 19800, 23257, 38042, 82266, 65590 #### [facility] [address] UFH HEPARIN ASSAYon 10-29-20 19 UNFRACTIONATED HEPARIN 0.31 IU/mL Normal 0.30-0.70 [facility] Comment on above: Result Comment: [place] roxaban and Apixaban will interfere with the anti Xa assay used to monitor UFH and LMWH. Performed By: #### 5 6101, 04987, 91514, 56061, 03375, 05880, 78610 #### [facility] [address] UNFRACTIONATED HEPARIN <0.10 Critically low 0.30-0.70 [facility] Comment on above: Result Comment: Jo Ann roxaban and Apixaban will interfere with the anti Xa assay used to monitor UFH and LMWH. RESULTS CHECKED AND CALLED. ACCURATELY READ BACK BY MATTHEW HERNANDEZ RN AT 13:10 Performed By: #### 5 6101, 72332, 70871, 47837, 41474, 36267, 62773 #### [facility] [address] UNFRACTIONATED HEPARIN <0.10 Critically low 0.30-0.70 [facility] Comment on above: Result Comment: Jo Ann roxaban and Apixaban will interfere with the anti Xa assay used to monitor UFH and LMWH. RESULTS CHECKED AND CALLED. ACCURATELY READ BACK BY BRANDON VAN RN AT 0532. Performed By: #### 5 6101, 59970, 25705, 92746, 89631, 33809, 39702 #### [facility] [address] [facility]. [address] *BLOOD CULTUREon 10-28-2019 Bacteria identified Cx Nom (Bld) Clinical Report: (D) Specimen: BLOOD CULTURE Collected: 10/28/2019 11:05 Status: Final Last Updated: 11/02/2019 14:57 CULT RES (Final) No Growth Day 5 Normal [facility] Comment on above: Performed By: #### 5 6101, 40729, 60480, 22410, 78140, 04043, 83798 #### [facility] [address] [facility]. [address] ANTITHROMBIN III ACTIVITYon 10-28-2019 AT 3 ACTIVITY 69 % Low 70-[address] [facility] Comment on above: Performed By: #### 5 6101, 42595, 43526, 20851, 24237, 96653, 39349 #### [facility] [address] [facility] [address] APC RESISTANCE ASSAYon 10-28 APC RESISTANCE 2.4 RATIO Normal 2.0-4.9 [facility] Comment on above: Performed By: #### 5 6101, 89321, 99722, 35543, 15759, 38992, 96521 #### [facility] [address] APTTon 10-28-2019 aPTT Coag (Bld) [Time] 33.7 s Normal 25.0-35.0 [facility] Comment on above: Order Comment: No: D o not add to previous draw Result Comment: ALL RESULTS MUST BE INTERPRETED WITH RESPECT TO BLOOD DRAWING ARTIFACT OR DILUTION ERROR OF ANTICOAGULANT AT THE TIME OF SAMPLING. THE APTT SHOULD NOT BE USED TO MONITOR UNFRACTIONATED HEPARIN THERAPY, THIS LABORATORY NO LONGER HAS AN ESTABLISHED THERAPEUTIC RANGE BASED ON THE APTT. IT IS RECOMMENDED THAT THE UFH - HEPARIN ASSAY (ANTI-XA ACTIVITY) BE USED FOR THIS PURPOSE. Performed By: #### 5 6101, 33585, 47877, 38730, 48003, 64686, 04054 #### [facility] [address] [place] [address], [facility] ARTERIAL BLOOD GAS WITH ICAo n 10-28-2019 BASE EXCESS 7 mmol/L High -2-3 [facility] Comment on above: Performed By: #### 8 4511 #### [facility] [address] [place] [address], [facility] DELIVERY SYSTEMS RA Normal [facility] Comment on above: Performed By: #### 8 4511 #### [facility] [address] [place] [address], [facility] HCO3 (Bld) [Moles/Vol] 31 mmol/L Critically high 21-28 [facility] Comment on above: Performed By: #### 8 4511 #### [facility] [address] [place] [address], [facility] IONIZED CALCIUM 1.09 mmol/L Low 1.13-1.32 The [facility] Comment on above: Performed By: #### 8 4511 #### [facility] [address] [place] [address], [facility] MODALITY RA Normal [facility] Comment on above: Performed By: #### 8 4511 #### [facility] [address] [place] [address], [facility] Oxygen (Bld) [Partial pressure] 66 mm[Hg] Low 83-108 The [facility] Comment on above: Performed By: #### 8 4511 #### [facility] [address] [place] [address], [place] Oxygen saturation in Blood 91.4 % Low 94.0-97.0 [facility] Comment on above: Performed By: #### 8 4511 #### [facility] [address] [place] [address], [place] PCO2 40 mmHg Normal 35-45 [facility] Comment on above: Performed By: #### 8 4511 #### [facility] [address] [place] [address], [place] pH (Bld) 7.49 [pH] High 7.35-7.45 [facility] Comment on above: Performed By: #### 8 4511 #### [facility] [address] [place] [address], [place] BASIC METABOLIC PANELon 11-2 Calcium [Mass/Vol] 7.8 mg/dL Low 8.6-10.3 [facility] Comment on above: Order Comment: No: D o not add to previous draw Performed By: #### 8 4511 #### [facility] [address] [place] [address], [place] Chloride [Moles/Vol] 91 mmol/L Low 98-107 [facility] Comment on above: Order Comment: No: D o not add to previous draw Performed By: #### 8 4511 #### [facility] [address] [place] [address], [place] CO2 [Moles/Vol] 28 mmol/L Normal 21-31 [facility] Comment on above: Order Comment: No: D o not add to previous draw Performed By: #### 8 4511 #### [facility] [address] [place] [address], [place] Creatinine [Mass/Vol] 0.50 mg/dL Low 0.70-1.30 [facility] Comment on above: Order Comment: No: D o not add to previous draw Performed By: #### 8 4511 #### [facility] [address] [place] [address], [place] GFR/1.73 sq M predicted among blacks MDRD (S/P/Bld) [Vol rate/Area] mL/min/{1.73_m2} Normal >60 [facility] Comment on above: Order Comment: No: D o not add to previous draw Performed By: #### 8 4511 #### [facility] [address] [place] [address], [place] GFR/1.73 sq M predicted among non-blacks MDRD (S/P/Bld) [Vol rate/Area] mL/min/{1.73_m2} Normal >60 [facility] Comment on above: Order Comment: No: D o not add to previous draw Performed By: #### 8 4511 #### [facility] [address] [place] [address], [place] Glucose [Mass/Vol] 137 mg/dL High 70-100 [facility] Comment on [facility]: Order Comment: No: D o not add to previous draw Performed By: #### 8 4511 #### [facility] [address] [place] [address], [place] Potassium [Moles/Vol] 3.8 mmol/L Normal 3.5-5.1 [facility] Comment on above: Order Comment: No: D o not add to previous draw Performed By: #### 8 4511 #### [facility] [address] [place] [address], [place] Sodium [Moles/Vol] 125 mmol/L Low 136-145 [facility] Comment on above: Order Comment: No: D o not add to previous draw Performed By: #### 8 4511 #### [facility] [address] Urea nitrogen [Mass/Vol] 9 mg/dL Normal 7-25 [facility] Comment on above: Order Comment: No: D o not add to previous draw Performed By: #### 8 4511 #### [facility] [address] CBC W/DIFFon 10-28-2019 ABS BASOPHILS 0.1 10*3/uL Normal 0.0-0.2 [facility] Comment on above: Performed By: #### 5 0103 #### [facility] [address] ABS IMM GRANS 0.1 10*3/uL Normal 0.0-0.2 [facility] Comment on above: Performed By: #### 5 0103 #### [facility] [address] ABS NEUTROPHILS 12.6 10*3/uL High 1.6-7.6 [facility] Comment on above: Performed By: #### 5 0103 #### [facility] [address] Basophils/100 WBC (Bld) 0.4 % Normal 0.0-1.0 [facility] Comment on above: Performed By: #### 5 0103 #### [facility] [address] Eosinophils (Bld) [#/Vol] 0.0 10*3/uL Normal 0.0-0.5 [facility] Comment on above: Performed By: #### 5 0103 #### [facility] [address] [place] [address], [facility] Eosinophils/100 WBC (Bld) 0.1 % Normal 0.0-6.0 [facility] Comment on above: Performed By: #### 5 0103 #### [facility] [address] [facility]. [address] Erythrocyte distribution width (RBC) [Ratio] 13.6 % Normal 11.5-15.0 [facility] Comment on above: Performed By: #### 5 3 #### [facility] [address] [facility] [place] [address], [facility] Hematocrit (Bld) [Volume fraction] 36.1 % Low 39.0-50.0 [facility] Comment on above: Performed By: #### 3 #### [facility] [address] Hemoglobin (Bld) [Mass/Vol] 12.8 g/dL Low 13.0-17.0 [facility] Comment on above: Performed By: #### 102 #### [facility] [address] IMM PLATELET FRAC 5.9 % Normal 0.8-6.3 [facility] Comment on above: Performed By: #### 5 102 #### [facility] [address] IMMATURE GRANS 0.9 % Normal 0.0-1.0 [facility] Comment on above: Performed By: #### 5 3 #### [facility] [address] [facility] [place] [address], [facility] Lymphocytes (Bld) [#/Vol] 0.6 10*3/uL Low 1.2-4.0 [facility] Comment on above: Performed By: #### 5 3 #### [facility] [address] [place] [address], [facility] Lymphocytes/100 WBC (Bld) 4.5 % Low 20.0-45.0 [facility] Comment on above: Performed By: #### 3 #### [facility] [address] MCH (RBC) [Entitic mass] 31.0 pg Normal 27.0-33.0 [facility] Comment on above: Performed By: #### 5 0103 #### [facility] [address] [facility] [address] MCHC (RBC) [Mass/Vol] 35.5 g/dL High 32.0-35.0 [facility] Comment on above: Performed By: #### 5 0103 #### [facility] [address] [place] [address], [facility] MCV (RBC) [Entitic vol] 87.4 fL Normal 82.0-98.0 [facility] Comment on above: Performed By: #### 5 0103 #### [facility] [address] Monocytes (Bld) [#/Vol] 0.6 10*3/uL Normal 0.1-1.0 [facility] Comment on above: Performed By: #### 5 0103 #### [facility] [address] MONOS 4.6 % Low 5.0-12.0 [facility] Comment on above: Performed By: #### 5 0103 #### [facility] [address] Neutrophils/100 WBC (Bld) 89.5 % High 40.0-72.0 [facility] Comment on above: Performed By: #### 5 0103 #### [facility] [address] [place] [address], [facility] Nucleated RBC/100 WBC (Bld) [Ratio] 0 % Normal 0-0 [facility] Comment on above: Performed By: #### 5 3 #### [facility] [address] [facility] [place] [address], [facility] PLAT CNT 98 10*3/uL Low 150-400 [facility] Comment on above: Performed By: #### 5 0103 #### [facility] [address] [place] [address], [facility] RBC (Bld) [#/Vol] 4.13 10*6/uL Low 4.20-5.70 [facility] Comment on above: Performed By: #### 5 0103 #### [facility] [address] [place] [address], [facility] WBC (Bld) [#/Vol] 14.05 10*3/uL High 4.00-10.60 [facility] Comment on above: Performed By: #### 5 0103 #### [facility] [address] FACTOR IIon 10-28-2019 FACTOR II 69 % Normal 65-120 [facility] Comment on above: Performed By: #### 5 6101, 44061, 95910, 00734, 94437, 29591, 08107 #### [facility] [address] HOMOCYSTEINEon 10-28-2019 HOMOCYSTEINE 8.1 umol/L Normal 4.0-12.0 [facility] Comment on above: Performed By: #### 5 6101, 88650, 51667, 50646, 19911, 86467, 52408 #### [facility] [address] [place] [address], [facility] LACTATE BLOODon 10-28-2019 Lactate [Moles/Vol] 1.2 mmol/L Normal 0.5-2.2 The [facility] Comment on above: Order Comment: No: D o not add to previous draw Performed By: #### 1 0054 #### [facility] [address] [place] [address], [facility] LIVER BATTERYon 10-28-2019 Albumin [Mass/Vol] 2.4 g/dL Low 3.5-5.7 [facility] Comment on above: Order Comment: No: D o not add to previous draw Performed By: #### 8 [id number] #### [facility] [address] [place] [address], [place] ALKALINE PHOSPH 187 IU/L High 34-104 The [facility] Comment on above: Order Comment: No: D o not add to previous draw Performed By: #### 8 [id number] #### [facility] [address] [place] [address], [place] ALT [Catalytic activity/Vol] 50 U/L Normal 7-52 The [facility] Comment on above: Order Comment: No: D o not add to previous draw Performed By: #### 8 [id number] #### [facility] [address] [place] [address], [place] AST [Catalytic activity/Vol] 26 U/L Normal 13-39 The [facility] Comment on above: Order Comment: No: D o not add to previous draw Performed By: #### 8 4511 #### [facility] [address] [place] [address], [place] Bilirubin [Mass/Vol] 3.3 mg/dL High 0.3-1.0 [facility] Comment on above: Order Comment: No: D o not add to previous draw Performed By: #### 8 4511 #### [facility] [address] [place] [address], [place] Bilirubin.direct [Mass/Vol] 2.2 mg/dL High 0.0-0.2 [facility] Comment on above: Order Comment: No: D o not add to previous draw Performed By: #### 8 4511 #### [facility] [address] [place] [address], [place] Protein [Mass/Vol] 5.4 g/dL Low 6.0-8.3 The [facility] Comment on above: Order Comment: No: D o not add to previous draw Performed By: #### 8 4511 #### [facility] [address] [place] [address], [facility] MAGNESIUM BLOODon 10-28-2019 Magnesium [Mass/Vol] 1.9 mg/dL Normal 1.9-2.7 [facility] Comment on above: Order Comment: No: D o not add to previous draw Performed By: #### 8 4511 #### [facility] [address] Operative Reporton 9 Operative Report MR#: [id number] I [facility] Pt. 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 ASSISTANTS: 1. Dr. Dawn, PGY 4. ANESTHESIA: General endotracheal. PROCEDURES PERFORMED: 1. Exploratory laparotomy. 2. Abdominal washout. FINDINGS: Diffuse small bowel distention. Transition point at the terminal ileum. Bilious at least 500 mL bilious fluid removed. Small bowel appeared to be edematous with fibrinous exudate indicating an inflammatory process. However, no colon, small bowel gastric duodenal perforation could be identified. Appendix appeared normal. WOUND CLASSIFICATION: Dirty. ESTIMATED BLOOD LOSS: 10 mL. SPECIMENS REMOVED: None. COUNTS: The counts were correct. INDICATION FOR THE PROCEDURE: The patient is a 59-year-old male, who presented as a transfer from an outside hospital. The patient presented with a 10-day history of abdominal pain. A CT of the abdomen and pelvis was performed and showed concern for small bowel perforation with free air as well as a portal venous thrombus. This was concerning for mesenteric ischemia of venous etiology with subsequent small bowel perforation. The patient was offered exploratory laparotomy with possible small bowel resection. The risks, benefits, and alternatives were explained to the patient in full detail and he agreed to proceed with the operative intervention. An informed consent was obtained. DESCRIPTION OF THE PROCEDURE: The patient was brought to the operating room and placed in the supine position. Cardiopulmonary monitor was initiated. EPC cuffs were placed. General endotracheal anesthesia was induced. Preoperative antibiotics were given. The patient's abdomen was prepped and draped in the usual sterile fashion. A critical surgical time-out was performed. A vertical midline incision was made to below the umbilicus, this was deepened through the subcutaneous tissue until the fascia was identified. The fascia was incised and the peritoneal cavity entered with care. Upon entering the abdominal cavity, bilious fluid was identified. Approximately 500 mL was suctioned. The small bowel appeared to be diffusely distended. The small bowel was run from the ligament of Treitz to the ileocecal valve. It appears to be largely distended at the ileum, there was significant fibrinous exudate erythema and edema. However, no definitive perforation could be identified. No adhesive bands were noted. The entire small bowel was once again inspected for viability. No ischemic bowel was identified. A small-bowel content was milked back to the stomach to be aspirated by the NG tube. The appendix, cecum, ascending colon, transverse colon, descending colon, and sigmoid colon were inspected, and no perforation could be identified. The stomach and the first portion of the duodenum were inspected again with no evidence of perforation. The abdominal cavity was copiously irrigated with approximately 4 L of warm saline. Hemostasis was achieved. The fascia was closed with two running sutures of 0 PDS in a continuous fashion. The subcutaneous tissue was irrigated. The skin was closed with skin anthony and sterile dressing applied. The patient tolerated the procedure well. There were no intraoperative complications. The patient was awakened from the anesthesia, extubated, and was taken to the Postanesthesia Care Unit in a good condition. Dr. Busch was present and scrubbed for the entire procedure. Electronically Signed by: Hugh Busch MD 10/28/2019 06:05 P Hugh Busch MD I was present for the entire procedure. Date Dict: 10/28/2019/02:12 P/Dana Dawn MD Date Trans: 10/28/2019 05:02 P/shalonda [id number] cc: Jersey Whittaker D.O. [address] [facility] [facility] [address] Wandy Magana M.D. E Physican...do Not Send [address] [facility] [address] Normal The [facility] PHOSPHORUS BLOODon 9 Phosphate [Mass/Vol] 3.8 mg/dL Normal 2.5-5.0 The [facility] Comment on above: Order Comment: No: D o not add to previous draw Performed By: #### 8 4511 #### [facility] [address] [place], [place] [address] [place] [address] PORTABLE CHEST 1 VIEWon 10-01 PORTABLE CHEST 1 VIEW [facility] Department of Radiology [address] [place] [id number] ======== Patient Name: MIGUEL BARON : 1960 Sex: M Age: Race: White Pt. Location: [place] [address] Patient Status: I Ordered Date: 10/28/2019 2:50:00 PM Completed Date: 10/28/2019 03:22 PM Requesting Provider: HUGH BUSCH Attending Provider: HUGH BUSCH Report Copy To: Signs & Symptoms: Post NG Tube Placement History: See Comments Comments: Check NG Tube Position Exam: PORTABLE CHEST 1 VIEW ======== PORTABLE CHEST 1 VIEW 10/28/2019 3:24 PM EST SIGNS AND SYMPTOMS: Post NG Tube Placement TECHNOLOGIST COMMENTS: Check NG Tube Position. QUESTION FOR THE RADIOLOGIST: Check NG Tube Position PROTOCOL: AP(PA) view was obtained. COMPARISON: None FINDINGS: Trachea is midline. Cardiomediastinal silhouette is normal. No focal consolidation, pleural effusion, or pneumothorax. No acute bony abnormalities. Degenerative change of the first costochondral junction. No subdiaphragmatic free air. Enteric tube within the stomach. IMPRESSION: Enteric tube in the stomach. Approved by:Nelsy Kendrick on 10/28/2019 3:28 PM EST. I, Jairo Saravia, have reviewed the images and report and concur with these findings. Electronically signed by:Jairo Saravia. Transcribed by: [email or web address], User Resident: NELSY KENDRICK Electronically Signed by: JAIRO SARAVIA @ 10/28/2019 04:50 PM I personally read this/these film(s) with this resident Normal The [facility] Comment on above: Order Comment: Check NG Tube Position PROTEIN C ACTIVITYon 019 Protein [Mass/Vol] 47 % Critically low 60-140 Th e [facility] Comment on above: Performed By: #### 5 6101, 80746, 31449, 81581, 75492, 21047, 54045 #### [facility] [address] [place] [address], [facility] PROTEIN C ANTIGENon 10-28-20 19 Protein [Mass/Vol] 53 % Low 65-120 The [facility] Comment on above: Performed By: #### 5 6101, 41594, 66932, 57955, 47361, 52599, 55466 #### [facility] [address] [place] [address], [place] PROTEIN S ACTIVITYon 019 Protein [Mass/Vol] 70 % Normal 60-165 The [facility] Comment on above: Performed By: #### 5 6101, 74532, 21636, 04443, 28701, 17073, 71401 #### [facility] [address] [place] [address], [place] PROTHROMBIN TIMEon 9 INR Coag (PPP) [Relative time] 1.27 {INR} High 0.91-1.16 [facility] Comment on above: Order Comment: No: D o not add to previous draw Result Comment: ACCC P RECOMMENDED INR FOR WARFARIN THERAPY ------- ------- CONDITION INR PROPHYLAXIS OF VENOUS THROMBOSIS 2-3 (HIGH-RISK SURGERY) TREATMENT OF VENOUS THROMBOSIS 2-3 TREATMENT OF PULMONARY EMBOLISM 2-3 PREVENTION OF SYSTEMIC EMBOLISM: 2-3 ACUTE MYOCARDIAL INFARCTION TISSUE HEART VALVES VALVULAR HEART DISEASE ATRIAL FIBRILLATION RECURRENT SYSTEMIC EMBOLISM MECHANICAL HEART VALVE 2.5-3.5 FROM: ORAL ANTICOAGULANTS. MECHANISM OF ACTION, CLINICAL EFFECTIVENESS, AND OPTIMAL THERAPEUTIC RANGE. CHEST 1995;108:231S-246S. Performed By: #### 5 6101, 29176, 73513, 07261, 78560, 65218, 56267 #### [facility] [address] [place] [address], [facility] PT Coag (PPP) [Time] 16.0 s High 12.3-14.8 [facility] Comment on above: Order Comment: No: D o not add to previous draw Result Comment: ALL RESULTS MUST BE INTERPRETED WITH RESPECT TO BLOOD DRAWING ARTIFACT OR DILUTION ERROR OF ANTICOAGULANT AT THE TIME OF SAMPLING. Performed By: #### 5 6101, 38328, 06602, 81897, 35429, 63640, 06578 #### [facility] [address] UFH HEPARIN ASSAYon 10-28-20 19 UNFRACTIONATED HEPARIN <0.10 Critically low 0.30-0.70 [facility] Comment on above: Result Comment: Roosevelt roxaban and Apixaban will interfere with the anti Xa assay used to monitor UFH and LMWH. RESULTS CHECKED AND CALLED. ACCURATELY READ BACK BY BRANDON VAN RN AT 2150 ACTUAL UFH VALUE = 0.00 Performed By: #### 8 4511 #### [facility] [address] UNFRACTIONATED HEPARIN <0.10 Critically low 0.30-0.70 [facility] Comment on above: Result Comment: Roosevelt roxaban and Apixaban will interfere with the anti Xa assay used to monitor UFH and LMWH. RESULTS CHECKED AND CALLED. ACCURATELY READ BACK BY MATTHEW NUR RN AT 1831 Performed By: #### 8 4511 #### [facility] [address] Vital Signs Date Time Vital Sign Value Performing Clinician Facility 04-15-2024 11:07-0400 Body height 187.96 cm [facility] 04-15-2024 11:07-0400 Body mass index (BMI) [Ratio] 23.8 kg/m2 [facility] 04-15-2024 11:07-0400 Body weight 83.97 kg [facility] 04-15-2024 11:07-0400 Diastolic blood pressure 68 mm[Hg] [facility] 04-15-2024 11:07-0400 Heart rate 91 /min [facility] 04-15-2024 11:07-0400 Respiratory rate 12 /min [facility] 04-15-2024 11:07-0400 Systolic blood pressure 127 mm[Hg] [facility] 02-13-2023 11:30-0400 Body height 187.96 cm Jersey Whittaker Other [employer] Other 02-13-2023 11:30-0400 Body mass index (BMI) [Ratio] 25.47 kg/m2 [employer] Other [employer] Other 02-13-2023 11:30-0400 Body weight 89.99 kg Jersey Whittaker Other [employer] Other 02-13-2023 11:30-0400 Diastolic blood pressure 79 mm[Hg] Jersey Whittaker Other [employer] Other 02-13-2023 11:30-0400 Respiratory rate 12 /min Jersey Whittaker Other [employer] Other 02-13-2023 11:30-0400 Systolic blood pressure 125 mm[Hg] Jersey Whittaker Other [employer] Other 06-04-2022 13:59-0400 Blood Pressure Location Edison NILL [facility] 06-04-2022 13:59-0400 Diastolic blood pressure 84 mm[Hg] Edison N[facility] 06-04-2022 13:59-0400 Heart rate 74 /min Edison NILL [facility] [place] 06-04-2022 13:59-0400 Respiratory rate 16 /min Edison NILL [facility] 06-04-2022 13:59-0400 Systolic blood pressure 124 mm[Hg] Edison NILL [facility] [place] Encounters Encounter Date Encounter Type Care Provider Facility Start: 04-15-2024 End: 04-15-2024 ambulatory [facility] Work Phone: Start: 04-15-2024 End: 04-15-2024 Patient encounter procedure [facility] Physician [facility] Work Phone: Start: 08-12-2023 End: 08-12-2023 ambulatory Stephy Benson Other [employer] Other Start: 08-12-2023 Nursing evaluation o f patient and report Stephy Kelley [facility] Start: 04-24-2023 End: 04-25-[address] JERSEY WHITTAKER Facility:[facility] Start: 04-16-2023 End: 04-17-[address] HANSEN LISTED REQUEST Facility:[facility] Start: 02-13-2023 End: 02-13-2023 ambulatory Jersey Whittaker Other [employer] Other Start: 02-13-2023 Office outpatient vi sit 15 minutes Jersey Whittaker [facility] Start: 07-23-2022 End: 07-23-[address] EDISON SALEH . Facility: Start: 07-22-2022 Encounter for preprocedural cardiovascular examination DR EDISON SALEH . [facility] Start: 07-22-2022 Encounter for preprocedural laboratory examination DR EDISON SALEH . [facility] Start: 07-18-2022 End: 07-19-[address] EDISON SALEH . Facility: Start: 07-18-2022 End: 07-19-2022 Encounter for preprocedural cardiovascular examination DR EDISON SALEH . Facility:[facility] Start: 06-04-2022 End: 06-04-2022 Patient encounter procedure Edison SALEH [facility] Start: 05-19-2022 End: 05-20-[address] JERSEY WHITTAKER Facility:[facility] Start: 04-14-2022 Adult health examination Karen Benson Other [employer] Other Start: 01-16-2020 End: 01-16-2020 Emergency department patient visit ALISON ARIZMENDI Facility:[facility] Start: 10-28-2019 End: 11-07-2019 Evaluation and management of inpatient HUGH Dobson JEREMIAS Facility:[facility] Procedures Date Procedure Procedure Detail Performing Clinician Start: 04-16-[address] CHIRAG HENRY ELWOOD Comment on above: Performed By: #### D ATBMP, DATPSA #### [facility] [address] [place] [address] [address] Mayra Zuluaga Start: 05-19-[address] CHIRAG WHITTAKER Comment on above: Performed By: #### D ATPSA #### [facility] [address] [place] [address] [address] Mayra Zuluaga Start: 11-07-2019 Antibody screen HUGH BUSCH Comment on above: Performed By: #### 1 0054 #### [facility] [address] [place] [address], [facility] Start: 11-01-2019 Antibody screen HUGH BUSCH Comment on above: Performed By: #### 5 6101, 23084, 32866, 36569, 22361, 72487, 18340 #### [facility] [address] Start: 11-01-2019 TRANSFUSE NONAUT RED BLOOD CELLS IN PERIPH VEIN, PERC HUGH BUSCH Start: 10-28-2019 INSPECTION OF LOWER INTESTINAL TRACT, OPEN APPROACH HUGH BUSCH Start: 10-28-2019 MEASURE OF ARTERIAL SATURATION, PERIPHERAL, PERC APPROACH HUGH BUSCH Start: 03-12-2019 Laboratory test resu lt abnormal Stephy Benson Other Start: 01-22-2018 Hypertension screening Stephy Benson Other Start: 07-06-2015 General examination of patient Stephy Benson Other Start: 03-16-2009 Colonoscopy Edison TURNER LL Depression screening Stephy Benson Other Excision of cyst Edison NIL L Comment on above: scrotum x 2 Exploratory laparotomy Kaiden NAVARROL Repair of ventral hernia Ansley NAVARROL Screening for malign ant neoplasm of prostate Stephy Benson Other Plan of Treatment Date Care Activity Detail Author [facility] Immunizations Immunization Date Immunization Notes Care Provider Fa cility 08-12-2023 influenza virus vaccine, unspecified formulation [facility] 08-12-2023 influenza, high dose seasonal, preservative-free Stephy Benson Other [facility] Other 08-12-2023 Prevnar 20 Stephy Benson Other [facility] 08-18-2022 influenza virus vaccine, split virus (incl. purified surface antigen) Stephy Benson Other [facility] Other 08-18-2022 influenza virus vaccine, unspecified formulation [facility] 08-18-2022 influenza, injectabl e, quadrivalent, preservative free [facility] 08-18-2022 influenza, injectabl e, quadrivalent, contains preservative Stephy Benson Other [facility] Other 11-11-2021 COVID-19 Vaccine Pfi zer - Documentation Purposes Only Stephy Benson Other [facility] 08-20-2021 influenza virus vaccine, split virus (incl. purified surface antigen) Stephy Benson Other [facility] Other 08-20-2021 influenza virus vaccine, unspecified formulation [facility] 03-05-2021 COVID-19 Vaccine Pfi zer - Documentation Purposes Only Stephy Benson Other [facility] 02-11-2021 COVID-19 Vaccine Pfi zer - Documentation Purposes Only Stephy Benson Other [facility] 07-13-2020 influenza virus vaccine, split virus (incl. purified surface antigen) Stephy Benson Other [facility] Other 07-13-2020 influenza virus vaccine, unspecified formulation [facility] 03-05-2020 COVID-19 Vaccine Pfi zer - Documentation Purposes Only Stephy Benson Other [facility] 08-25-2019 influenza virus vaccine, split virus (incl. purified surface antigen) Stephy Benson Other [facility] [facility] Other 08-25-2019 influenza virus vaccine, unspecified formulation [facility] 08-08-2018 influenza virus vaccine, split virus (incl. purified surface antigen) Stephy Benson Other [employer] Other 08-08-2018 influenza virus vaccine, unspecified formulation [facility] 09-02-2017 tetanus and diphther ia toxoids, adsorbed, preservative free, for adult use (5 Lf of tetanus toxoid and 2 Lf of diphtheria toxoid) Stephy Benson Other [facility] 08-30-2016 tetanus and diphther ia toxoids, adsorbed, preservative free, for adult use (5 Lf of tetanus toxoid and 2 Lf of diphtheria toxoid) Stephy Benson Other [facility] 09-07-2013 tetanus and diphther ia toxoids, adsorbed, preservative free, for adult use (5 Lf of tetanus toxoid and 2 Lf of diphtheria toxoid) Stephy Benson Other [facility] Payers Date Payer Category Payer Private Health Insurance [id number] 1961 Medicare [id number] 1961 Private Health Insurance [id number] 1961 Self-pay 1960 Unknown [id number] 2.16.8 [id number] 1960 Unknown [id number] 2.16.8 [id number] 1960 Unknown [id number] 2.16.84 [id number] 1960 Unknown [id number] 2.16.84 [id number] 1960 Unknown [id number] 2.16.84 [id number] Unknown [id number] 2.16.84 [id number] Unknown [id number] 2.16.84 [id number] Social History Date Type Detail Facility Start: 06-04-2022 Tobacco smoking status Heavy t obacco smoker (finding) [facility] Tobacco smoking status Never [facility] Sex Assigned At Male Genera l Surgery [employer] Start: 1960 Sex Assigned At Male [facility] Functional Status Date Assessment Result Facility 06-04-2022 Functional Status N/A [facility] [employer] Evaluation note 02-13-2023 Note Date & Type Note Facility 02-13-2023 Evaluation note Encounter Date Diagnosis Assessment Notes Jan, Sebaceous cyst of axilla (ICD-10 - L72.3) Warm compresses. Gently massage area to express cystic contents. Jan, Local infection of the skin and subcutaneous tissue, unspecified (ICD-10 - L08.9) Begin antibiotics, call when finished if area remains erythematous and tender Jan, Cigarette nicotine dependence without complication (ICD-10 - F17.210) This patient has been encouraged to quit tobacco use immediately. They are aware of the hazards associated with tobacco use, including but not limited to respiratory infections, vascular disease and cancers. [employer] Other Clinical Note 07-23-2022 Note Date & Type Note Facility 07-23-2022 Note OPERATIVE NOTE OPERATION DATE: 07/23/2022 PREOPERATIVE DIAGNOSIS: Positive Cologuard. POSTOPERATIVE DIAGNOSIS: Sigmoid and rectal polyps. PROCEDURE: Colonoscopy to cecum with hot snare polypectomy x2 for 5 mm sigmoid polyp and 1.5 cm rectal polyp, as well as tattooing of the rectal polyp. SURGEON: Edison Saleh M.D. ANESTHESIA: Monitored anesthesia care. ESTIMATED BLOOD LOSS: Less than 1 mL. INDICATIONS AND CONSENT: Patient is a 62-year-old male with a positive Cologuard. Indications, risks, benefits, alternatives of proceeding with colonoscopy were explained extensively to the patient, including the risks of bleeding, colon perforation or anesthetic complications. All of his questions were answered. Informed consent was obtained. PROCEDURE: Patient brought to the operating room, placed in the left lateral decubitus position. Monitored anesthesia care was provided. Rectal exam was performed which showed no masses or blood, some decreased tone. The scope was inserted into the anal canal. Under direct visualization was advanced. It was advanced to the cecum where cecal markings were clearly identified. There was noted to be a good prep. Upon withdrawal of the scope, mucosal surfaces were carefully examined. There were no mass lesions or inflammatory changes. There was mild sigmoid diverticulosis. Within the sigmoid, there was also noted to be a 4 mm sessile polyp that was removed with hot snare with good hemostasis. At the rectum, at approximately 7 cm, there was noted to be a 1.5 cm sessile prong-like polyp. This was removed in a piecemeal fashion with hot snare with good hemostasis. The site was also tattooed. The scope was retroflexed in the anal canal. There were prominent rectal veins. No significant hemorrhoidal disease. The scope was then withdrawn. Patient tolerated procedure well, was sent to recovery room in good condition. CC: Jersey Whittaker D.O. [facility] Clinical Note 07-19-2022 Note Date & Type Note Facility 07-19-2022 Note EXAMINATION: XR CHES T 2 V HISTORY: Nicotine dependence ; preoperative evaluation COMPARISON: No relevant comparison available. FINDINGS: LUNGS: Hyperexpanded lungs. No peripheral infiltrates or mass. VASCULATURE: No increased pulmonary vasculature. PLEURA: No pneumothorax, effusion, or pleural thickening. CARDIAC: No cardiomegaly or cardiac silhouette abnormality. MEDIASTINUM: No visible mass or adenopathy. BONES: No fracture or visible bone lesion. OTHER: Negative. IMPRESSION: 1. No acute cardiopulmonary process. 2. Hyperexpanded lungs; exaggerated inspiratory effort versus mild COPD. Electronically authenticated by: DRAGAN PORTILLO Date: 2022-07-19 07:25 [facility] Clinical Note 06-05-2022 Note Date & Type Note Facility 06-05-2022 Note Chief Complaint consultation for positive Cologuard HPI Staff 62 year old male presents on consultation from Dr. Whittaker for positive Cologuard. Denies abdominal or rectal pain. No rectal bleeding or change in bowel habits. Denies nausea or vomiting. No unexplained weight loss. Last colonoscopy completed 2008. No known family history of colon cancer. History of Present Illness 62 yo male with h/o protein C deficiency, athritis, BPH, referred for positive Cologuard; denies change in bms or blood in stools, no abdominal complaints; last colonoscopy 2008; abdominal operations significant for exploratory laparotomy and incisional hernia repair with mesh; denies asa or NSAID use, no SBE prophylaxis, no fmhx of GI maligancy or IBD. smokes daily. Review of Systems PHQ Score Initial Depression Screen Score: 0 ROS - Provider Constitutional: no fever, no sweats, no weight loss. Eyes: no glasses, no blurred vision, no visual loss. ENMT: no dentures, no hoarseness, no swallowing difficulties, no hearing loss, no ear infection(s), no nose bleeds. Cardiovascular: normal blood pressure, no chest pain, regular heartbeat, no heart murmur. Respiratory: no shortness of breath, no cough, no asthma, no wheezing. Gastrointestinal: no nausea, no vomiting, no diarrhea, no constipation, no blood in stool, no change in bowel habits, no abdominal pain, no hepatitis. Genitourinary: no kidney stones, no urine infection, no dysuria. Musculoskeletal: no pain, no weakness. Skin: no changing moles, no rash, no skin lumps. Neurologic: no seizures, no epilepsy, no headache. Psychiatric: no emotional or psychiatric problem. Heme/Lymph: no bleeding problems, no anemia, no blood clots, no transfusions. Allergy/Immunologic: no swollen lymph nodes/glands, no IV drug abuse. Other: Additional ROS info: Except as noted in the above Review of Systems and in the History of Present Illness, all other systems have been reviewed and are negative or noncontributory. Physical Exam Vitals & Measurements HR: 74(Peripheral) RR: 16 BP: 124/84 HT: 179 cm HT: 179.0 cm WT: 85.5 kg WT: 85.5 kg BMI: 26.68 HEENT: normal conjunctiva, sclera clear, no scleral icterus, EOM intact, PERRLA, oral mucosa moist without lesions. Neck: trachea midline, no mass, symmetric, no thyromegaly or nodules, no adenopathy Respiratory: lungs CTA, respirations non labored. Cardiovascular: regular rate and rhythm, no murmur, no pedal edema or varicosities. Gastrointestinal: soft, non distended, no tenderness, no masses, no palpable hernias, diastasis recti yes, well-healed midline scar no hepatosplenomegaly; normal bs Lymphatic: no cervical adenopathy, Musculoskeletal: normal gait, digits and nails without infection, nodes, cyanosis, clubbing. Skin: no rashes, no lesions, no ulcers, no subcutaneous nodules, induration. Psychiatric/Neuro: oriented to time, place, person, judgement normal, affect appropriate for age, insight intact, no focal deficits. Tests: labs reviewed, x-rays reviewed, review of old records completed, Discussed surgical options, risks, and possible complications with patient. Assessment/Plan 1. Positive colorectal cancer screening using Cologuard test (R19.5: Other fecal abnormalities) plan colonoscopy under anesthesia, informed consent obtained. 2. Tobacco use (Z72.0: Tobacco use) We strongly recommend to quit tobacco use. Cigarette smoking harms nearly every organ of the body, causes many diseases, and reduces the health of smokers in general. Quitting smoking lowers your risk for smoking-related diseases and can add years to your life. We encourage you to visit www.smokefree.gov access to helpful resources including free telephone support. If you decide on prescription treatment to help you quit, your family doctor would be happy to provide these. Follow-up No qualifying data available Problem List/Past Medical History Ongoing Acute mesenteric arterial occlusion Acute mesenteric ischemia Anemia due to blood loss, acute Arthritis of both knees BMI 26.0-26.9,adult BPH associated with nocturia Cigarette nicotine dependence Incisional hernia of anterior abdominal wall without obstruction or gangrene Lumbar spondylosis Portal vein thrombosis Positive colorectal cancer screening using Cologuard test Protein C deficiency Splenic vein thrombosis Tobacco use Historical No qualifying data Procedure/Surgical History Colonoscopy (03/16/2009), Excision of cyst, Exploratory laparotomy, Repair of ventral hernia. Medications No active medications Allergies No Known Allergies No Known Medication Allergies Social History Alcohol Current, Beer, Daily, 04/25/2020 Substance Abuse - Denies Substance Abuse, 04/25/2020 Tobacco 10 or more cigarettes (1/2 pack or more)/day in last 30 days Tobacco Use:. Never Smokeless Tobacco Use:. Cigarettes, Yes, 06/04/2022 Family History Dementia: Mother. Hypertension: Mother. Primary malignant marina (more content not included)... [facility] Comment on above: Result Comment: Elec tronically Signed By: DELFINO DALE, Edison Ernandez\Date and Time Signed: 06/05/22 15:05 EDT Evaluation + Plan note Note Date & Type Note Facility Evaluation + Plan note No data available for this section General Surgery [place] Evaluation note Note Date & Type Note Facility Evaluation note No Information [facility] Other Evaluation note Note Date & Type Note Facility Evaluation note Diagnosis Onset Date Benign prostatic hyperplasia with lower urinary tract symptoms acute Lumbar spondylosis acute Nicotine addiction acute Medicare annual wellness visit, initial noneactive Screening PSA (prostate specific antigen) noneactive [facility] Work Phone: History general Narrative - Reported Note Date & Type Note Facility History general Narrative - Reported Type Medical History Positive colorectal cancer screening using Cologuard test Medical History Acute blood loss anemia Medical History Protein C deficiency Medical History Incisional hernia of anterior abdominal wall without obstruction or gangrene Medical History Superior mesenteric vein thrombosis Medical History Lumbar spondylosis Medical History Benign prostatic hyp erplasia with lower urinary tract symptoms Medical History Arthritis of both knees Medical History Cigarette nicotine d ependence, uncomplicated Medical History Portal vein thrombosis Surgical History COLONOSCOPY Surgical History EXPLORATORY LAPAROTOMY 2018 Surgical History VENTRAL HERNIA REPAIR WITH MESH 2020 Surgical History POLYPECTOMY: HYPERPL ASTIC PULP AND TUBULAR ADENOMA Hospitalization History SEE SURGICAL HX [facility] Other Hospital Discharge instructions Note Date & Type Note Facility Hospital Discharge instructions No data available for this section General Surgery [place] [facility] note Note Date & Type Note Facility Progress note No data available for this section General Surgery [place] Summary Purpose Family History Relationship Condition Age at Onset Recorded Date/T dain father Malignant neoplasm Unknown Not Specified Hypertension Unknown Advance Directives Advance Directive Response Recorded Date/ Time Advance Directives No December 23, 2023 10:05am Hospital Course Note MR#: [id number] I [facility] Pt. Name: Miguel Baron Admitted: 10/28/2019 Discharged: 11/07/2019 Date of : 1960 Physician: Hugh Busch MD DISCHARGE SUMMARY PRINCIPAL DIAGNOSES: 1. 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 2. Escherichia coli positive abdominal wound infection. 3. Iron deficiency anemia. SECONDARY DIAGNOSIS: Arthritis of bilateral knees. SURGERIES DURING THIS ADMISSION: Status post exploratory laparotomy with abdominal washout. SUMMARY OF THE HOSPITAL COURSE: The patient is a 59-year-old male who presented to [facility] as a transfer from an outside hospital. He reports lower abdominal pain for week and a half that has progressively been getting worse. He was unable to eat much due to the pain. He had not had a bowel movement for days prior to arrival. A CT scan was completed at the outside hospital and was concerning for mesenteric thrombus and bowel perforation with free air. The patient was taken to the (more content not included)... Chief Complaint and Reason for Visit Chief Complaint Wellness Reason for Visit Benign prostatic hyp erplasia with lower urinary tract symptoms Lumbar spondylosis Nicotine addiction Medicare annual wellness visit, initial Screening PSA (prostate specific antigen) Additional Source Comments (unrecognized sect ion and content) No Status Records FoundNo Status Records FoundNo Status Records FoundNo Status Records FoundNo Status Records Found INFORMATION SOURCE (unrecogn ized section and content) DATE CREATED AUTHOR 12/08/2019 [facility] DATE CREATED AUTHOR AUTHOR'S ORGANIZ ATION 01/19/2020 [facility] DATE CREATED AUTHOR AUTHOR'S ORGANIZ ATION 06/20/2022 [facility] DATE CREATED AUTHOR AUTHOR'S ORGANIZ ATION 08/06/2022 [facility] DATE CREATED AUTHOR AUTHOR'S ORGANIZ ATION 05/08/2023 [facility] Care Team (unrecognized sect ion and content) Team Status: Active Member Role Status Dates Jersey Whittaker DO Primary Care Provider Active Team Status: Inactive Member Role Status Dates Jersey Whittaker DO Primary Care Provide r, Attending Provider Active Start: April 15, 2024 End: April 15, 2024 REASON FOR VISIT (unrecogniz ed section and content) cystflu/pneumonia shot Goals (unrecognized section and content) Goals may be documented in a n alternate section FOR RECORDS PERTAINING TO PATIENTS WHO ARE OR HAVE BEEN ENROLLED IN A CHEMICAL DEPENDENCY/SUBSTANCEABUSE PROGRAM, SOME INFORMATION MAY BE OMITTED. This clinical summary was aggregated from multiple sources. Caution should be exercised in using it in the provision of clinical care. This summary normalizes information from multiple sources, and as a consequence, information in this document may materially change the coding, format and clinical context of patient data. In addition, data may be omitted in some cases. CLINICAL DECISIONS SHOULD BE BASED ON THE PRIMARY CLINICAL RECORDS. [facility] [employer] [facility]. provides no warranty or guarantee of the accuracy or completeness of information in this document.
== END 2024-05-18 10:05 | disposition home or self-care (01) ==
LOC: CT 10:05
PROVIDERS: PCP Internal Medicine; Visit Provider Internal Medicine
DX: F17.210 Nicotine dependence, cigarettes, uncomplicated (principal)
CPT/HCPCS: 71271

== ENCOUNTER 2025-04-18 06:34 | Outpatient (OUT) | payer MEDICARE, OTHER, SELFPAY ==
--- OUTSIDE RECORDS SUMMARY | 2025-04-18 06:37 | XMS_ITS | CCD ---
Author Organization [facility] Care Team Providers Care Assisted Living Nursing Director Name Role Phone PEBBLES BUSCH Admitting Unavailable PEBBLES BUSCH Attending Unavailable WANDY MAGANA Referring Unavailable JERSEY WHITTAKER Primary Care Unavailable [place] Procedure Practitioner Unavailab PEBBLES Morgan Surgeon Unavailable UGO, ALISON Admitting Unavailable SANAZ, JERSEY Primary Care Unavailable SELF, REFERRED Referring Unavailable ADOLFO LEVINE Attending Unavailable SANAZ, JERSEY Primary Care Physician Sanaz, [place] Unavailable SANAZ, DR LAYNE Admitting Unavailable BALL, DR LAYNE [...] physicia Propensity to adverse reactions 4 Comment:Done Curetis Other Medications Current Medications Medication Drug Class(es) [...] twice daily for 7 days Jan, Active Currie (No Known Home Meds) (1 source) Start: 04-15-2024 Currie (No Known Home Meds) Active April 15, 2024 12:00am predniSONE 20 mg oral tablet (3 sources) Start: 08-03-2024 End: 08-12-2024 Prednisone Active 20 MG PO As Directed August 12, 2024 11:18am 1 tab tid w/ food x 3 days, then bid w/ food x 3 days, then qd w/ food x 3 days Completed/Discontinued Medications Medication Drug Class(es) Dates Sig (Normalized) Sig (Original) tamsulosin hydrochloride 0.4 mg oral capsule (5 sources) alpha-Adrenergic Suyapa Start: 04-13-2024 End: 04-15-2024 take 0.4 mg by mouth once daily Tamsulosin Discontinued 0.4 MG PO Daily April 13, 2024 12:00am April 15, 2024 11:05am take 1 capsule by az ut every twenty-four hours Tamsulosin HCl 0.4 MG 1 capsule Orally Once a day Active Problems Active Problems Problem Classification Problem Date Documented Da te Episodic/Chronic Abdominal hernia (4 sources) Ventral incisional hernia; Translations: [Incisional hernia] 04-25-2020 Episodic Acute posthemorrhagic anemia (4 sources) Acute posthemorrhagic anemia; Translations: [Acute posthemorrhagic anemia] 04-25-2020 Episodic Allergic reactions (2 sources) Allergic contact dermatitis; Translations: [Allergic contact dermatitis, unspecified cause] 08-03-2024 Episodic Coagulation and hemorrhagic disorders (4 sources) Protein C deficiency disease; 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 Chronic Diverticulosis and diverticulitis (1 source) Diverticulosis of large intestine without perforation or abscess without bleeding; Translations: [DVRTCLOS LG INT NO PERF/ABSC W/O BL] Onset: 07-25-2022 Chronic Hyperplasia of prostate (10 sources) Nocturia due to benign prostatic hypertrophy; [...] current use of drug therapy; Translations: [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] Episodic Other gastrointestinal disorders (3 sources) Abnormal feces; Translations: [Other fecal abnormalities] Episodic Other inflammatory condition of skin (1 source) Pruritic rash; Translations: [Other prurigo] 08-03-2024 Episodic Other inflammatory condition of skin (1 source) Other prurigo; Translations: [Prurigo] 08-03-2024 Episodic Other male genital disorders (1 source) [...] Spondylosis; intervertebral disc disorders; other back problems (8 sources) Lumbar spondylosis; Translations: [Spondylosis without myelopathy or radiculopathy, lumbar region] 04-24-2020 Chronic Substance-related disorders (16 sources) Nicotine dependence; Translations: [Nicotine dependence, cigarettes, [...] DRAGAN PORTILLO Date: 2023-04-24 10:47 Normal [facility] CBC AUTO DIFFon 04-16-2023 BASO # 0.0 103/ul Normal 0.0-0.1 [facility] Comment on above: Performed By: #### D ATCBC #### [facility] Laboratory [address] [address] [address] Mayra Zuluaga Basophils/100 WBC (Bld) 0.6 % Normal 0.2-2.0 [facility] Comment on above: Performed By: #### D ATCBC #### [facility] [address] [address] [address] Mayra Zulauga EO # 0.1 103/ul Normal 0.0-0.7 [facility] Comment on above: Performed By: #### D ATCBC #### [facility] [address] [place] [address] Dr. Mayra Zuluaga Eosinophils/100 WBC (Bld) 2.1 % Normal 0.9-7.0 [facility] Comment on above: Performed By: #### D ATCBC #### [facility] [address] [place] [address] Dr. Mayra Zuluaga Erythrocyte distribution width (RBC) [Ratio] 13.2 % Normal 11.0-15.0 [facility] Comment on above: Performed By: #### D ATCBC #### [facility] [address] [place] [address] Dr. Mayra Zuluaga Hematocrit (Bld) [Volume fraction] 45.2 % Normal 42.0-54.0 [facility] Comment on above: Performed By: #### D ATCBC #### [facility] [address] [place] [address] Dr. Mayra Zuluaga Hemoglobin (Bld) [Mass/Vol] 15.0 g/dL Normal 14.0-18.0 [facility] Comment on above: Performed By: #### D ATCBC #### [facility] [address] [place] [address] Dr. Mayra Zuluaga IG # 0.02 10e3/ul Normal 0.00-0.03 [facility] Comment on above: Performed By: #### D ATCBC #### [facility] [address] [place] [address] Dr. Mayra Zuluaga IG % 0.3 % Normal 0.0-0.5 [facility] Comment on above: Performed By: #### D ATCBC #### [facility] [address] [place] [address] Dr. Mayra Zuluaga LYMPH # 2.0 103/ul Normal 1.2-3.8 [facility] Comment on above: Performed By: #### D ATCBC #### [facility] [address] [place] [address] Dr. Mayra Zuluaga Lymphocytes/100 WBC (Bld) 32.3 % Normal 20.5-60.0 [facility] Comment on above: Performed By: #### D ATCBC #### [facility] [address] [place] [address] Dr. Mayra Zuluaga MCH (RBC) [Entitic mass] 31.0 pg Normal 25.9-34.0 [facility] Comment on above: Performed By: #### D ATCBC #### [facility] [address] [address] [address] Mayra Zuluaga MCHC (RBC) [Mass/Vol] 33.2 g/dL Normal 29.9-35.2 [facility] Comment on above: Performed By: #### D ATCBC #### [facility] [address] [address] [address] Mayra Zuluaga MCV (RBC) [Entitic vol] 93.4 fL Normal 80.0-94.0 [facility] Comment on above: Performed By: #### D ATCBC #### [facility] [address] [address] [address] Mayra Zuluaga MONO # 0.9 103/ul Critically high 0.3-0.8 [facility] Comment on above: Performed By: #### D ATCBC #### [facility] [address] [address] [address] Mayra Zuluaga Monocytes/100 WBC (Bld) 13.9 % Critically high 1.7-12.0 [facility] Comment on above: Performed By: #### D ATCBC #### [facility] [address] [address] [address] Mayra Zuluaga NEUT # 3.2 103/ul Normal 1.4-6.5 [facility] Comment on above: Performed By: #### D ATCBC #### [facility] [address] [address] [address] Mayra Zuluaga Neutrophils/100 WBC (Bld) 50.8 % Normal 43.0-75.0 [facility] Comment on above: Performed By: #### D ATCBC #### [facility] [address] [address] [address] Mayra Zuluaga Platelet mean volume (Bld) [Entitic vol] 9.5 fL Normal 9.5-13.5 [facility] Comment on above: Performed By: #### D ATCBC #### [facility] [address] [address] [address] Mayra Zuluaga PLT 215 103/ul Normal 150-450 [facility] Comment on above: Performed By: #### D ATCBC #### [facility] [address] [place] [address] Dr. Mayra Zuluaga RBC 4.84 106/ul Normal 4.70-6.10 [facility] Comment on above: Performed By: #### D ATCBC #### [facility] [address] [place] [address] Dr. Mayra Zuluaga WBC 6.3 103/ul Normal 4.0-11.0 [facility] Comment on above: Performed By: #### D ATCBC #### [facility] [address] [place] [address] Dr. Mayra Zluuaga AMINATA- BMP WITH LIPIDon 2022 Anion gap [Moles/Vol] 12.5 mmol/L Normal [facility] Comment on above: Performed By: #### D ATBMP, DATPSA #### [facility] [address] [place] [address] Dr. Mayra Zuluaga Calcium [Mass/Vol] 8.6 mg/dL Normal 8.5-10.1 [facility] Comment on above: Performed By: #### D ATBMP, DATPSA #### [facility] [address] [place] [address] Dr. Mayra Zuluaga Chloride [Moles/Vol] 103 mmol/L Normal 98-107 [facility] Comment on above: Performed By: #### D ATBMP, DATPSA #### [facility] [address] [place] [address] Dr. Mayra Zuluaga Cholesterol [Mass/Vol] 178 mg/dL Normal <=200 [facility] Comment on above: Performed By: #### D ATBMP, DATPSA #### [facility] [address] [place] [address] Dr. Mayra Zuluaga Cholesterol in HDL [Mass/Vol] 62 mg/dL Critically high 40-60 [facility] Comment on above: Performed By: #### D ATBMP, DATPSA #### [facility] [address] [place] [address] Dr. Mayra Zuluaga Cholesterol in LDL [Mass/Vol] 108.8 mg/dL Normal [facility] Comment on above: Performed By: #### D ATBMP, DATPSA #### [facility] [address] [place] [address] Dr. Mayra Zuluaga CO2 [Moles/Vol] 28.9 mmol/L Normal 21.0-32.0 [facility] Comment on above: Performed By: #### D ATBMAlexia, DATPSA #### [facility] [address] [place] [address] Dr. Mayra Zuluaga Creatinine [Mass/Vol] 0.84 mg/dL Normal 0.70-1.30 [facility] Comment on above: Performed By: #### D ATBMAlexia, DATPSA #### [facility] [address] [place] [address] Dr. Mayra Zuluaga EGFR-AF AFGHAN >60 Normal >=60 [facility] Comment on above: Performed By: #### D ATBMAlexia, DATPSA #### [facility] [address] [place] [address] Dr. Mayra Zuluaga EGFR-NON AF AFGHAN >60 Normal >=60 [facility] Comment on above: Performed By: #### D ATAlexia, DATPSA #### [facility] [address] [place] [address] Dr. Mayra Zuluaga Glucose [Mass/Vol] 114 mg/dL Critically high 74-106 [facility] Comment on above: Performed By: #### D ATBMAlexia, DATPSA #### [facility] [address] [place] [address] Dr. Mayra Zuluaga HDL NORMAL > or = 60 mg/dl - LO W CARDIOVASCULAR RISK <40 mg/dl - HIGH CARDIOVASCULAR RISK Normal [facility] Comment on above: Performed By: #### D ATBMP, DATPSA #### [facility] [address] [place] [address] Dr. Mayra Zuluaga LDL CALC NORMAL SEE BELOW Normal [facility] Comment on above: Result Comment: <100 mg/dl OPTIMAL 100 - 129 mg/dl NEAR OR ABOVE OPTIMAL 130 - 159 mg/dl BORDERLINE HIGH 160 - 189 mg/dl HIGH >190 mg/dl VERY HIGH Performed By: #### D ATBMP, DATPSA #### [facility] [address] [place] [address] Dr. Mayra Zuluaga Potassium [Moles/Vol] 4.4 mmol/L Normal 3.5-5.1 [facility] Comment on above: Performed By: #### D ATBMP, DATPSA #### [facility] [address] [place] [address] Dr. Mayra Zuluaga Sodium [Moles/Vol] 140 mmol/L Normal 136-145 [facility] Comment on above: Performed By: #### D ATBMP, DATPSA #### [facility] [address] [place] [address] Dr. Mayra Zuluaga Triglyceride [Mass/Vol] 36 mg/dL Normal <=150 [facility] Comment on above: Performed By: #### D ATBMP DATPSA #### [facility] [address] [place] [address] Dr. Mayra Zuluaga Urea nitrogen [Mass/Vol] 12.0 mg/dL Normal 7.0-18.0 [facility] Comment on above: Performed By: #### D ATBMP, DATPSA #### [facility] [address] [place] [address] Dr. Mayra Zuluaga Urea nitrogen/Creatinine [Mass ratio] 14.3 mg/mg Normal [facility] Comment on above: Performed By: #### D ATBMP, DATPSA #### [facility] [address] [place] [address] Dr. Mayra Zuluaga VLDL CALC 7.2 mg/dL Normal [facility] Comment on above: Performed By: #### D ATBMP, DATPSA #### [facility] [address] [place] [address] Dr. Mayra Zuluaga Ambulatory Visit Summaryon 0 [...] deficiency Splenic vein thrombosis Tobacco use Normal [facility] General Surgery Office/Clini c Noteon 08-05-2022 [...] Primary malignant neoplasm of lung: Father. Normal [facility] Comment on above: Result Comment: Elec tronically Signed By: NICKY DALE, Edison Ernandez\Date and Time Signed: 08/05/22 13:21 EDT Reminderson 08-05-2022 Reminders - From: Shanna Moreno LPN To: N - Clinical; Sent: 08/05/2022 13:45:08 EDT Show up: 06/22/2025 07:00:00 EDT Subject: colonoscopy recall Due Date/Time: 07/23/2025 07:00:00 EDT Reminder/Recall Patient is due for colonoscopy 07/23/2025 due to history of colonic polyps. Normal [facility] Pathology Noteon 07-25-2022 Pathology Note [id number] 0CD:127 Normal [facility] Outside Colonoscopyon 2021 Outside Colonoscopy [id number] 0CD:127 Normal [facility] Lab Reportson 07-22-2022 Lab Reports [id number] CD:127 Normal [facility] RAD - MISCon 07-22-2022 RAD - MISC [id number] 0CD:127 Normal [facility] Covid-19 PCR ([facility])on 06-30 SARS-CoV-2 (COVID-19) RNA DOROTHY+probe Ql (Unsp spec) Not detected Normal NOT DETECTED [facility] Comment on above: Result Comment: This test is not yet approved or cleared by the [place] FDA. When there are no FDA-approved or cleared tests available, and other criteria are met, FDA can make tests available under an emergency access mechanism called an Emergency Use Authorization (EUA). The EUA for this test is supported by the [place] of Health and Human Service's (HHS's) declaration [...] consistent with SARS-CoV-2. Performed By: #### C VDTB #### [facility] [address] [place] [address] Dr. Mayra Zuluaga Consent for Procedure/Surger yon 06-05-2022 Consent for Procedure/Surgery [id number] 0CD:127 Normal [facility] Ambulatory Visit Summaryon 0 06-04-2022 Ambulatory Visit [...] Protein C deficiency Splenic vein thrombosis Normal [facility] Physician Referralon 022 Physician Referral [id number] 0CD:127 Normal [facility] Surgical Pathology Depar tmenton 01-30-2022 [facility] Surgical Pathology Department Name MIGUEL BARON Pathologist: DOMINGA AGRAWAL DMD Date of Procedure: 01/30/2022 Date Received: 02/03/2022 Date Reported 02/06/2022 Submitting Physician: REMIGIO MENDOZA DDS Location: [facility] Other External # FINAL DIAGNOSIS A. RIGHT SOFT PALATAL MUCOSA, INCISIONAL BIOPSY: -- MILD EPITHELIAL DYSPLASIA (MULTIPLE LEVELS EXAMINED) ICD-10/CPT: [id number] Electronically Signed Out By DOMINGA AGRAWAL DMD/JONNATHAN By the signature on this report, the [...] submitted in toto in 1 cassette. AMANDEEP matos/02/03/2022 [facility] Department of Pathology [address] [place] [address] Normal [facility] Comment on above: Performed By: #### U [facility] #### [facility] Surgical Pathology Department [address] [place] [address] BASIC METABOLIC PANELon 12-31 Calcium [Mass/Vol] 9.6 mg/dL Normal 8.6-10.3 [facility] Comment on above: Performed By: #### 1 0054 #### [facility] [address] [place] [address], [facility] Chloride [Moles/Vol] 100 mmol/L Normal 98-107 [facility] Comment on above: Performed By: #### 1 0054 #### [facility] [address] [place] [address], [facility] CO2 [Moles/Vol] 25 mmol/L Normal 21-31 [facility] Comment on above: Performed By: #### 1 0054 #### [facility] [address] [place] [address], [facility] Creatinine [Mass/Vol] 0.62 mg/dL Low 0.70-1.30 [facility] Comment on above: Performed By: #### 1 0054 #### [facility] [address] [place] [address], [facility] GFR/1.73 sq M predicted among blacks MDRD (S/P/Bld) [Vol rate/Area] mL/min/{1.73_m2} Normal >60 [facility] Comment on above: Performed By: #### 1 0054 #### [facility] [address] [place] [address], [facility] GFR/1.73 sq M predicted among non-blacks MDRD (S/P/Bld) [Vol rate/Area] mL/min/{1.73_m2} Normal >60 [facility] Comment on above: Performed By: #### 1 0054 #### [facility] [address] [facility] [place] [address], [facility] Glucose [Mass/Vol] 97 mg/dL Normal 70-100 [facility] Comment on above: Performed By: #### 1 0054 #### [facility] [address] [facility] [place] [address], [facility] Potassium [Moles/Vol] 3.9 mmol/L Normal 3.5-5.1 [facility] Comment on above: Performed By: #### 1 0054 #### [facility] [address] [place] [address], [facility] Sodium [Moles/Vol] 131 mmol/L Low 136-145 [facility] Comment on above: Performed By: #### 1 0054 #### [facility] [address] [place] [address], [facility] Urea nitrogen [Mass/Vol] 5 mg/dL Low 7-25 [facility] Comment on above: Performed By: #### 1 0054 #### [facility] [address] [place] [address], [facility] CBC W/DIFFon 01-16-2020 ABS BASOPHILS 0.0 10*3/uL Normal 0.0-0.2 [facility] Comment on above: Performed By: #### 1 0054 #### [facility] [address] [place] [address], [facility] ABS IMM GRANS 0.0 10*3/uL Normal 0.0-0.2 [facility] Comment on above: Performed By: #### 1 0054 #### [facility] [address] [facility] [address], [facility] ABS NEUTROPHILS 5.5 10*3/uL Normal 1.6-7.6 The [facility] Comment on above: Performed By: #### 1 0054 #### [facility] [address] [place] [address], [facility] Basophils/100 WBC (Bld) 0.4 % Normal 0.0-1.0 [facility] Comment on above: Performed By: #### 1 0054 #### [facility] [address] [facility] [address], [facility] Eosinophils (Bld) [#/Vol] 0.1 10*3/uL Normal 0.0-0.5 [facility] Comment on above: Performed By: #### 1 0054 #### [facility] [address] [facility] [address], [facility] Eosinophils/100 WBC (Bld) 1.0 % Normal 0.0-6.0 [facility] Comment on above: Performed By: #### 1 0054 #### [facility] [address] [place] [address], [facility] Erythrocyte distribution width (RBC) [Ratio] 15.0 % Normal 11.5-15.0 [facility] Comment on above: Performed By: #### 1 0054 #### [facility] [address] [place] [address], [facility] Hematocrit (Bld) [Volume fraction] 41.1 % Normal 39.0-50.0 [facility] Comment on above: Performed By: #### 1 4 #### [facility] [address] Hemoglobin (Bld) [Mass/Vol] 13.2 g/dL Normal 13.0-17.0 [facility] Comment on above: Performed By: #### 1 0054 #### [facility] [address] [place] [address], [facility] IMMATURE GRANS 0.2 % Normal 0.0-1.[address] [facility] Comment on above: Performed By: #### 1 0054 #### [facility] [address] Lymphocytes (Bld) [#/Vol] 3.1 10*3/uL Normal 1.2-4.0 [facility] Comment on above: Performed By: #### 1 0054 #### [facility] [address] Lymphocytes/100 WBC (Bld) 31.1 % Normal 20.0-45.0 [facility] Comment on above: Performed By: #### 1 0054 #### [facility] [address] MCH (RBC) [Entitic mass] 27.9 pg Normal 27.0-33.0 [facility] Comment on above: Performed By: #### 1 0054 #### [facility] [address] MCHC (RBC) [Mass/Vol] 32.1 g/dL Normal 32.0-35.0 [facility] Comment on above: Performed By: #### 1 0054 #### [facility] [address] [place] [address], [facility] MCV (RBC) [Entitic vol] 86.9 fL Normal 82.0-98.0 [facility] Comment on above: Performed By: #### 1 0054 #### [facility] [address] [place] [address], [facility] Monocytes (Bld) [#/Vol] 1.2 10*3/uL High 0.1-1.0 [facility] Comment on above: Performed By: #### 1 0054 #### [facility] [address] [facility] [place] [address], [facility] MONOS 11.7 % Normal 5.0-12.0 [facility] Comment on above: Performed By: #### 1 0054 #### [facility] [address] [facility] [place] [address], [facility] Neutrophils/100 WBC (Bld) 55.6 % Normal 40.0-72.0 [facility] Comment on above: Performed By: #### 1 0054 #### [facility] [address] [facility] [place] [address], [facility] Nucleated RBC/100 WBC (Bld) [Ratio] 0 % Normal 0-0 [facility] Comment on above: Performed By: #### 1 0054 #### [facility] [address] [facility] [place] [address], [facility] PLAT CNT 296 10*3/uL Normal 150-400 [facility] Comment on above: Performed By: #### 1 0054 #### [facility] [address] [facility] [place] [address], [facility] RBC (Bld) [#/Vol] 4.73 10*6/uL Normal 4.20-5.70 [facility] Comment on above: Performed By: #### 1 0054 #### [facility] [address] [facility] [place] [address], [facility] WBC (Bld) [#/Vol] 9.81 10*3/uL Normal 4.00-10.60 [facility] Comment on above: Performed By: #### 1 0054 #### [address] [place], [place] [id number] [place] [address] CT ABDOMEN AND PELVIS W IV A ND ORAL CONTRASTon 01-16-2020 CT ABDOMEN AND PELVIS W IV AND ORAL CONTRAST [facility] Department of Radiology [address] [place] [id number] ======== Patient Name: MIGUEL BARON : 1960 Sex: M Age: Race: White Pt. Location: [facility] Patient Status: E Ordered Date: 01/16/2020 12:10:00 [...] achievable Electronically signed: Jennifer Cohen. Transcribed by: [email or web address], User Resident: Electronically Signed by: JENNIFER COHEN @ 01/16/2020 02:26 PM Normal [facility] Comment on above: Order Comment: No: D o not add to previous draw Coding Summaryon 12-08-2019 Coding Summary CODING DATE: 12/08/2019 [facility] STATUS: Home PAYOR: Commercial Insurance ADMIT DX: [...] Hurtado Revised Date Saved: 11/22/2019 11:54 am [facility] Provider Orderson 11-18-2019 Provider Orders [id number] 20 [id number] [facility] H&Hon 11-17-2019 Hematocrit (Bld) [Volume fraction] 28.7 % Low 34.8-51.9 [facility] Comment on above: Performed By: #### 5 [id number] #### [facility] (DEFAULT) [address] [place] [address] Hemoglobin (Bld) [Mass/Vol] 9.2 g/dL Low 11.8-17.7 [facility] Comment on above: Performed By: #### 5 [id number] #### [facility] (DEFAULT) [address] [place] [address] BASIC METABOLIC PANELon 12-0 Calcium [Mass/Vol] 7.3 mg/dL Low 8.6-10.3 [facility] Comment on above: Order Comment: No: D o not add to previous draw Performed By: #### 5 6101, 30665, 31081, 66601, 56783, 93166, 76660 #### [facility] [address] [place] [address], [facility] Chloride [Moles/Vol] 99 mmol/L Normal 98-107 [facility] Comment on above: Order Comment: No: D o not add to previous draw Performed By: #### 5 6101, 32149, 64172, 18636, 28779, 06754, 89993 #### [facility] [address] [facility] [place] [address], [place] CO2 [Moles/Vol] 27 mmol/L Normal 21-31 [facility] Comment on above: Order Comment: No: D o not add to previous draw Performed By: #### 5 6101, 09613, 37200, 90388, 03294, 52243, 93485 #### [facility] [address] [place] [address], [place] Creatinine [Mass/Vol] 0.38 mg/dL Low 0.70-1.30 [facility] Comment on above: Order Comment: No: D o not add to previous draw Performed By: #### 5 6101, 02505, 79152, 24008, 95940, 54455, 99849 #### [facility] [address] [place] [address], [place] GFR/1.73 sq M predicted among blacks MDRD (S/P/Bld) [Vol rate/Area] mL/min/{1.73_m2} Normal >60 [facility] Comment on above: Order Comment: No: D o not add to previous draw Performed By: #### 5 6101, 91804, 63381, 78396, 74451, 78056, 19844 #### [facility] [address] [place] [address], [place] GFR/1.73 sq M predicted among non-blacks MDRD (S/P/Bld) [Vol rate/Area] mL/min/{1.73_m2} Normal >60 [facility] Comment on above: Order Comment: No: D o not add to previous draw Performed By: #### 5 6101, 87476, 03098, 15753, 37285, 83798, 22779 #### [facility] [address] [place] [address], [place] Glucose [Mass/Vol] 95 mg/dL Normal 70-100 [facility] Comment on above: Order Comment: No: D o not add to previous draw Performed By: #### 5 6101, 38401, 59731, 61508, 02592, 57518, 92751 #### [facility] [address] [place] [address], [place] Potassium [Moles/Vol] 3.7 mmol/L Normal 3.5-5.1 [facility] Comment on above: Order Comment: No: D o not add to previous draw Performed By: #### 5 6101, 40411, 48209, 53147, 04092, 66823, 26774 #### [facility] [address] [place] [address], [place] Sodium [Moles/Vol] 129 mmol/L Low 136-145 [facility] Comment on above: Order Comment: No: D o not add to previous draw Performed By: #### 5 6101, 65394, 77084, 54774, 15123, 89703, 52306 #### [facility] [address] [place] [address], [facility] Urea nitrogen [Mass/Vol] 5 mg/dL Low 7-25 [facility] Comment on above: Order Comment: No: D o not add to previous draw Performed By: #### 5 6101, 94358, 20327, 56774, 98937, 43123, 69765 #### [facility] [address] [place] [address], [facility] CBC COMPLETE BLOOD COUNTon 1 01-08-2019 Erythrocyte distribution width (RBC) [Ratio] 16.0 % High 11.5-15.0 [facility] Comment on above: Order Comment: No: D o not add to previous draw Performed By: #### 5 6101, 51648, 35299, 31440, 26877, 91407, 87886 #### [facility] [address] [place] [address], [facility] Hematocrit (Bld) [Volume fraction] 20.8 % Low 39.0-50.0 [facility] Comment on above: Order Comment: No: D o not add to previous draw Performed By: #### 5 6101, 87978, 89330, 32263, 76660, 17258, 89850 #### [facility] [address] [place] [address], [facility] Hemoglobin (Bld) [Mass/Vol] 6.9 g/dL Low 13.0-17.0 [facility] Comment on above: Order Comment: No: D o not add to previous draw Performed By: #### 5 6101, 15595, 42593, 07388, 31750, 04667, 18308 #### [facility] [address] [place] [address], [facility] MCH (RBC) [Entitic mass] 30.5 pg Normal 27.0-33.0 [facility] Comment on above: Order Comment: No: D o not add to previous draw Performed By: #### 5 6101, 92143, 76540, 49521, 49306, 46411, 06015 #### [facility] [address] [place] [address], [facility] MCHC (RBC) [Mass/Vol] 33.2 g/dL Normal 32.0-35.0 [facility] Comment on above: Order Comment: No: D o not add to previous draw Performed By: #### 5 6101, 09117, 81552, 34439, 18972, 21289, 52027 #### [facility] [address] [place] [address], [facility] MCV (RBC) [Entitic vol] 92.0 fL Normal 82.0-98.0 [facility] Comment on above: Order Comment: No: D o not add to previous draw Performed By: #### 5 6101, 27624, 64762, 68906, 62985, 42905, 11910 #### [facility] [address] [facility] [place] [address], [facility] Nucleated RBC/100 WBC (Bld) [Ratio] 0 % Normal 0-0 [facility] Comment on above: Order Comment: No: D o not add to previous draw Performed By: #### 5 6101, 26162, 84944, 21662, 06942, 44269, 59830 #### [facility] [address] [place] [address], [facility] PLAT CNT 447 10*3/uL High 150-400 [facility] Comment on above: Order Comment: No: D o not add to previous draw Performed By: #### 5 6101, 17046, 56078, 46776, 35058, 41260, 02034 #### [facility] [address] [place] [address], [facility] RBC (Bld) [#/Vol] 2.26 10*6/uL Low 4.20-5.70 [facility] Comment on above: Order Comment: No: D o not add to previous draw Performed By: #### 5 6101, 99564, 41653, 41105, 66020, 50770, 29522 #### [facility] [address] [place] [address], [facility] WBC (Bld) [#/Vol] 13.25 10*3/uL High 4.00-10.60 [facility] Comment on above: Order Comment: No: D o not add to previous draw Performed By: #### 5 6101, 67457, 99149, 47061, 75368, 40121, 65818 #### [facility] [address] [facility] [place] MAGNESIUM BLOODon 11-07-2019 Magnesium [Mass/Vol] 1.7 mg/dL Low 1.9-2.7 [facility] Comment on above: Order Comment: No: D o not add to previous draw Performed By: #### 1 0054 #### [facility] [address] [facility]. [address] RBC'S 1 UNITon 11-07-2019 CROSSMATCH INTERP 1 COMP Normal [facility] Comment on above: Performed By: #### 1 0054 #### [facility] [address] [facility]. [address] PRODUCT CODE 1 E0336 Normal [facility] Comment on above: Performed By: #### 1 0054 #### [facility] [address] [facility]. [address] PRODUCT STATUS 1 PT Normal The [facility] Comment on above: Result Comment: Resu lt changed by IF on 11/07/2019 11:05. The previous value was XM. Result changed by IF on 11/08/2019 00:30. The previous value was IS. Performed By: #### 1 0054 #### [facility] [address] [place] [address], [facility] UNIT ABO 1 O Normal [facility] Comment on above: Performed By: #### 1 0054 #### [facility] [address] [place] [address], [place] UNIT ID 1 [id number] Normal [facility] Comment on above: Performed By: #### 1 0054 #### [facility] [address] [place] [address], [facility] UNIT RH 1 Positive Normal [facility] Comment on above: Performed By: #### 1 0054 #### [facility] [address] [place] [address], [place] TYPE AND SCREENon 11-07-2019 ABO INTERPRETATION O Normal The [facility] Comment on above: Performed By: #### 1 0054 #### [facility] [address] [place] [address], [facility] RH INTERPRETATION Positive Normal [facility] Comment on above: Performed By: #### 1 0054 #### [facility] [address] [place] [address], [facility] CBC COMPLETE BLOOD COUNTon 1 01-07-2019 Erythrocyte distribution width (RBC) [Ratio] 15.9 % High 11.5-15.0 [facility] Comment on above: Order Comment: No: D o not add to previous draw Performed By: #### 5 6101, 30487, 25679, 21865, 52715, 66797, 31333 #### [facility] [address] [place] [address], [facility] Hematocrit (Bld) [Volume fraction] 21.3 % Low 39.0-50.0 [facility] Comment on above: Order Comment: No: D o not add to previous draw Performed By: #### 5 6101, 19433, 16498, 56146, 97455, 33910, 85596 #### [facility] [address] [place] [address], [facility] Hemoglobin (Bld) [Mass/Vol] 7.1 g/dL Low 13.0-17.0 [facility] Comment on above: Order Comment: No: D o not add to previous draw Performed By: #### 5 6101, 35300, 10656, 48957, 78232, 34338, 13674 #### [facility] [address] [place] [address], [facility] MCH (RBC) [Entitic mass] 30.7 pg Normal 27.0-33.0 [facility] Comment on above: Order Comment: No: D o not add to previous draw Performed By: #### 5 6101, 85754, 14827, 18129, 61599, 24740, 56322 #### [facility] [address] [facility] [address] MCHC (RBC) [Mass/Vol] 33.3 g/dL Normal 32.0-35.0 [facility] Comment on above: Order Comment: No: D o not add to previous draw Performed By: #### 5 6101, 31451, 20452, 03243, 65959, 82012, 33280 #### [facility] [address] [facility] [place] [address], [facility] MCV (RBC) [Entitic vol] 92.2 fL Normal 82.0-98.0 [facility] Comment on above: Order Comment: No: D o not add to previous draw Performed By: #### 5 6101, 52814, 02427, 83168, 30236, 62148, 79918 #### [facility] [address] [facility] [place] [address], [facility] Nucleated RBC/100 WBC (Bld) [Ratio] 0 % Normal 0-0 [facility] Comment on above: Order Comment: No: D o not add to previous draw Performed By: #### 5 6101, 62382, 92173, 54536, 94305, 99169, 97365 #### [facility] [address] [place] [address], [facility] PLAT CNT 387 10*3/uL Normal 150-400 [facility] Comment on above: Order Comment: No: D o not add to previous draw Performed By: #### 5 6101, 00758, 95464, 43218, 23388, 00160, 78853 #### [facility] [address] [place] [address], [facility] RBC (Bld) [#/Vol] 2.31 10*6/uL Low 4.20-5.70 [facility] Comment on above: Order Comment: No: D o not add to previous draw Performed By: #### 5 6101, 36002, 46774, 19328, 64985, 56380, 29258 #### [facility] [address] [place] [address], [facility] WBC (Bld) [#/Vol] 17.49 10*3/uL High 4.00-10.60 [facility] Comment on above: Order Comment: No: D o not add to previous draw Performed By: #### 5 6101, 44408, 77669, 74748, 18484, 36454, 47406 #### [facility] [address] [facility] [place] [place] [address], [facility] COMP METABOLIC PANELon 11-06 Albumin [Mass/Vol] 2.0 g/dL Low 3.5-5.7 [facility] Comment on above: Order Comment: No: D o not add to previous draw Performed By: #### 5 6101, 78742, 90190, 59948, 84776, 07633, 60784 #### [facility] [address] [place] [address], [facility] ALKALINE PHOSPH 147 IU/L High 34-104 [facility] Comment on above: Order Comment: No: D o not add to previous draw Performed By: #### 5 6101, 33670, 11213, 02862, 61335, 02493, 51055 #### [facility] [address] [place] [address], [place] ALT [Catalytic activity/Vol] 13 U/L Normal 7-52 [facility] Comment on above: Order Comment: No: D o not add to previous draw Performed By: #### 5 6101, 41975, 46701, 46729, 73672, 65680, 75020 #### [facility] [address] [place] [address], [place] AST [Catalytic activity/Vol] 14 U/L Normal 13-39 [facility] Comment on above: Order Comment: No: D o not add to previous draw Performed By: #### 5 6101, 27582, 41846, 84589, 55486, 80773, 00133 #### [facility] [address] [place] [address], [place] Bilirubin [Mass/Vol] 1.3 mg/dL High 0.3-1.0 [facility] Comment on above: Order Comment: No: D o not add to previous draw Performed By: #### 5 6101, 77010, 60792, 26680, 42879, 09360, 51530 #### [facility] [address] [place] [address], [place] Calcium [Mass/Vol] 7.5 mg/dL Low 8.6-10.3 [facility] Comment on above: Order Comment: No: D o not add to previous draw Performed By: #### 5 6101, 14205, 13769, 55855, 35091, 86928, 47475 #### [facility] [address] [place] [address], [place] Chloride [Moles/Vol] 99 mmol/L Normal 98-107 [facility] Comment on above: Order Comment: No: D o not add to previous draw Performed By: #### 5 6101, 68101, 20769, 02328, 82006, 45193, 81109 #### [facility] [address] [place] [address], [facility] CO2 [Moles/Vol] 26 mmol/L Normal 21-31 [facility] Comment on above: Order Comment: No: D o not add to previous draw Performed By: #### 5 6101, 82984, 34235, 57230, 60455, 38437, 82853 #### [facility] [address] [place] [address], [facility] Creatinine [Mass/Vol] 0.40 mg/dL Low 0.70-1.30 [facility] Comment on above: Order Comment: No: D o not add to previous draw Performed By: #### 5 6101, 73273, 73376, 53069, 44390, 00830, 42695 #### [facility] [address] [place] [address], [facility] GFR/1.73 sq M predicted among blacks MDRD (S/P/Bld) [Vol rate/Area] mL/min/{1.73_m2} Normal >60 [facility] Comment on above: Order Comment: No: D o not add to previous draw Performed By: #### 5 6101, 63116, 18202, 58884, 46043, 82688, 99726 #### [facility] [address] [place] [address], [facility] GFR/1.73 sq M predicted among non-blacks MDRD (S/P/Bld) [Vol rate/Area] mL/min/{1.73_m2} Normal >60 [facility] Comment on above: Order Comment: No: D o not add to previous draw Performed By: #### 5 6101, 55841, 34800, 40943, 68904, 33769, 02364 #### [facility] [address] [place] [address], [place] Glucose [Mass/Vol] 86 mg/dL Normal 70-100 The [facility] Comment on above: Order Comment: No: D o not add to previous draw Performed By: #### 5 6101, 03320, 66978, 91129, 47810, 86056, 85241 #### [facility] [address] [place] [address], [place] Potassium [Moles/Vol] 4.0 mmol/L Normal 3.5-5.1 [facility] Comment on above: Order Comment: No: D o not add to previous draw Performed By: #### 5 6101, 34155, 43912, 95899, 67577, 82273, 21853 #### [facility] [address] [place] [address], [facility] Protein [Mass/Vol] 4.8 g/dL Low 6.0-8.3 [facility] Comment on above: Order Comment: No: D o not add to previous draw Performed By: #### 5 6101, 06492, 44983, 80378, 94795, 47649, 56598 #### [facility] [address] [place] [address], [place] Sodium [Moles/Vol] 130 mmol/L Low 136-145 [facility] Comment on above: Order Comment: No: D o not add to previous draw Performed By: #### 5 6101, 62223, 30811, 88725, 14465, 59800, 36602 #### [facility] [address] [place] [address], [place] Urea nitrogen [Mass/Vol] 5 mg/dL Low 7-25 [facility] Comment on above: Order Comment: No: D o not add to previous draw Performed By: #### 5 6101, 64720, 27187, 24825, 08551, 98460, 63082 #### [facility] [address] MAGNESIUM BLOODon 11-06-2019 Magnesium [Mass/Vol] 1.8 mg/dL Low 1.9-2.7 [facility] Comment on above: Order Comment: No: D o not add to previous draw Performed By: #### 5 6101, 44224, 77957, 35643, 87722, 03728, 16252 #### [facility] [address] *C DIFF DNA AMPLIFICATIONon 11-05-2019 *C DIFF DNA AMPLIFICATION Clinical Report: (D) Specimen: [id number] Collected: 11/05/2019 15:19 Status: Final Last Updated: 11/05/2019 16:45 (1) No: Do not add to previous draw CDT DNA: (Final) Negative Normal [facility] Comment on above: Order Comment: No: D o not add to previous draw Performed By: #### 5 6101, 69305, 25368, 19393, 66804, 14026, 11216 #### [facility] [address] *WOUND CULTUREon 11-05-2019 *WOUND CULTURE Clinical [...] <=1 Susceptible CEFAZOLIN (CZ) <=1 Susceptible CEFTRIAXONE (ELECTRIC PLATER) <=0.5 Susceptible CIPROFLOXACIN (CIP) <=0.5 Susceptible ESBL (-/+) (ESBL) Negative GENTAMICIN (GM) <=1 Susceptible PIP/TAZO (TZP) <=2/4 Susceptible TOBRAMYCIN (TOB) 1 Susceptible TRIMETH/SULFA (SXT) <=0.5/9.5 Susceptible Normal [facility] Comment on above: Order Comment: No: D o not add to previous draw Performed By: #### 5 6101, 61741, 43012, 74003, 87751, 28198, 32333 #### [facility] [address] [place] [address], [facility] BASIC METABOLIC PANELon 12-0 Calcium [Mass/Vol] 7.6 mg/dL Low 8.6-10.3 [facility] Comment on above: Order Comment: No: D o not add to previous draw Performed By: #### 5 6101, 16532, 73533, 75299, 87590, 50379, 63387 #### [facility] [address] [place] [address], [facility] Chloride [Moles/Vol] 97 mmol/L Low 98-107 [facility] Comment on above: Order Comment: No: D o not add to previous draw Performed By: #### 5 6101, 34547, 88983, 66743, 09656, 38094, 71521 #### [facility] [address] [place] [address], [facility] CO2 [Moles/Vol] 26 mmol/L Normal 21-31 [facility] Comment on above: Order Comment: No: D o not add to previous draw Performed By: #### 5 6101, 91533, 56312, 91894, 48018, 96928, 01198 #### [facility] [address] [place] [address], [place] Creatinine [Mass/Vol] 0.35 mg/dL Low 0.70-1.30 [facility] Comment on above: Order Comment: No: D o not add to previous draw Performed By: #### 5 6101, 26502, 71967, 59679, 57432, 38337, 62163 #### [facility] [address] [place] [address], [facility] GFR/1.73 sq M predicted among blacks MDRD (S/P/Bld) [Vol rate/Area] mL/min/{1.73_m2} Normal >60 [facility] Comment on above: Order Comment: No: D o not add to previous draw Performed By: #### 5 6101, 45457, 02235, 47709, 78017, 90908, 28638 #### [facility] [address] [place] [address], [facility] GFR/1.73 sq M predicted among non-blacks MDRD (S/P/Bld) [Vol rate/Area] mL/min/{1.73_m2} Normal >60 [facility] Comment on above: Order Comment: No: D o not add to previous draw Performed By: #### 5 6101, 38585, 98861, 64119, 61375, 72283, 04278 #### [facility] [address] [place] [address], [facility] Glucose [Mass/Vol] 98 mg/dL Normal 70-100 The [facility] Comment on above: Order Comment: No: D o not add to previous draw Performed By: #### 5 6101, 30203, 39024, 52041, 52185, 42549, 37558 #### [facility] [address] [place] [address], [facility] Potassium [Moles/Vol] 3.8 mmol/L Normal 3.5-5.1 [facility] Comment on above: Order Comment: No: D o not add to previous draw Performed By: #### 5 6101, 54143, 53915, 23858, 31607, 30165, 42779 #### [facility] [address] [place] [address], [place] Sodium [Moles/Vol] 129 mmol/L Low 136-145 The [facility] Comment on above: Order Comment: No: D o not add to previous draw Performed By: #### 5 6101, 07493, 24805, 98700, 05722, 07067, 41433 #### [facility] [address] [place] [address], [facility] Urea nitrogen [Mass/Vol] 5 mg/dL Low 7-25 [facility] Comment on above: Order Comment: No: D o not add to previous draw Performed By: #### 5 6101, 34425, 89659, 74824, 16303, 79886, 91176 #### [facility] [address] CBC COMPLETE BLOOD COUNTon 1 01-06-2019 Erythrocyte distribution width (RBC) [Ratio] 15.5 % High 11.5-15.0 [facility] Comment on above: Order Comment: No: D o not add to previous draw Performed By: #### 5 6101, 46015, 82110, 90069, 38287, 33233, 33456 #### [facility] [address] Hematocrit (Bld) [Volume fraction] 22.4 % Low 39.0-50.0 [facility] Comment on above: Order Comment: No: D o not add to previous draw Performed By: #### 5 6101, 07090, 34139, 07892, 48824, 88524, 30613 #### [facility] [address] [place] [id number], [facility] Hemoglobin (Bld) [Mass/Vol] 7.5 g/dL Low 13.0-17.0 [facility] Comment on above: Order Comment: No: D o not add to previous draw Performed By: #### 5 6101, 59406, 78236, 37942, 87220, 48041, 13099 #### [facility] [address] [place] [address], [facility] MCH (RBC) [Entitic mass] 31.0 pg Normal 27.0-33.0 [facility] Comment on above: Order Comment: No: D o not add to previous draw Performed By: #### 5 6101, 89955, 68253, 07697, 78655, 36132, 42030 #### [facility] [address] [facility]. [address] MCHC (RBC) [Mass/Vol] 33.5 g/dL Normal 32.0-35.0 [facility] Comment on above: Order Comment: No: D o not add to previous draw Performed By: #### 5 6101, 57570, 63422, 36504, 10741, 65139, 68123 #### [facility] [address] [facility]. [address] MCV (RBC) [Entitic vol] 92.6 fL Normal 82.0-98.0 [facility] Comment on above: Order Comment: No: D o not add to previous draw Performed By: #### 5 6101, 45271, 11847, 05975, 03262, 74489, 79858 #### [facility] [address] [facility]. [address] Nucleated RBC/100 WBC (Bld) [Ratio] 0 % Normal 0-0 [facility] Comment on above: Order Comment: No: D o not add to previous draw Performed By: #### 5 6101, 24221, 83126, 99638, 83248, 41576, 88574 #### [facility] [address] [facility]. [address] PLAT CNT 350 10*3/uL Normal 150-400 The [facility] Comment on above: Order Comment: No: D o not add to previous draw Performed By: #### 5 6101, 86725, 30754, 15862, 15138, 40513, 02443 #### [facility] [address] RBC (Bld) [#/Vol] 2.42 10*6/uL Low 4.20-5.70 The [facility] Comment on above: Order Comment: No: D o not add to previous draw Performed By: #### 5 6101, 48375, 09863, 05998, 51693, 57691, 98107 #### [facility] [address] WBC (Bld) [#/Vol] 20.11 10*3/uL High 4.00-10.60 [facility] Comment on above: Order Comment: No: D o not add to previous draw Performed By: #### 5 6101, 22872, 01729, 09338, 23659, 50686, 40339 #### [facility] [address] CHEST AND LATERALon 11-05-20 CHEST AND LATERAL [facility] Department of Radiology [address] [place], [place] [id number] ======== Patient Name: MIGUEL BARON : 1960 Sex: M Age: Race: White Pt. Location: [address] [place] [address] Patient Status: I Ordered Date: 11/04/2019 1:35:00 PM Completed Date: 11/05/2019 12:40 PM Requesting Provider: HAILE WILLOUGHBY Attending Provider: PEBBLES BUSCH Report Copy To: Signs & Symptoms: [...] by:Jacinto Jones on 11/05/2019 5:55 PM EST. I, Ramandeep Mai, have reviewed the images and report and concur with these findings. Electronically signed by:Ramandeep Mai. Transcribed by: [email or web address], User Resident: JACINTO JONES Electronically Signed by: RAMANDEEP MAI @ 11/07/2019 09:28 AM I personally read this/these film(s) with this resident Normal [facility] Comment on above: Order Comment: No: D o not add to previous draw CT ABDOMEN AND PELVIS W IV C ONTRASTon 11-05-2019 CT ABDOMEN AND PELVIS W IV CONTRAST [facility] Department of Radiology [address] [place] [id number] ======== Patient Name: MIGUEL BARON : 1960 Sex: M Age: Race: White Pt. Location: [id number] Patient Status: I Ordered Date: 11/05/2019 2:25:00 PM Completed Date: 11/05/2019 03:03 PM Requesting Provider: YESSENIA ESTRADA Attending Provider: PEBBLES BUSCH Report Copy To: Signs & Symptoms: [...] findings. Electronically signed by:Ramandeep Mai. Transcribed by: [email or web address], User Resident: JACINTO JONES Electronically Signed by: RAMANDEEP MAI @ 11/06/2019 08:15 AM I personally read this/these film(s) with this resident Normal [facility] Comment on above: Order Comment: Other , r/o intra-abdominal abscess/fluid collection MAGNESIUM BLOODon 11-05-2019 Magnesium [Mass/Vol] 1.9 mg/dL Normal 1.9-2.7 [facility] Comment on above: Order Comment: No: D o not add to previous drawPt using restroom. Performed By: #### 5 6101, 14831, 92611, 29892, 95249, 21635, 36459 #### [facility] [address] [place] [address], [facility] URINALYSIS REFLEXon 11-05-20 19 Appearance (U) SL CLOUDY Abnormal CLEAR The [facility] Comment on above: Order Comment: No: D o not add to previous drawCriteria for reflexing a culture was not met. Please call the lab [id number] within 24 hours of collection time if culture is needed Performed By: #### 5 6101, 77118, 63005, 49952, 06116, 47519, 35736 #### [facility] [address] [place] [address], [facility] Bilirubin [Mass/Vol] Negative Normal NEGATIVE [facility] Comment on above: Order Comment: No: D o not add to previous drawCriteria for reflexing a culture was not met. Please call the lab [id number] within 24 hours of collection time if culture is needed Performed By: #### 5 6101, 55416, 82746, 21694, 18720, 00255, 45604 #### [facility] [address] [place] [address], [facility] BLOOD Negative Normal NEGATIVE [facility] Comment on above: Order Comment: No: D o not add to previous drawCriteria for reflexing a culture was not met. Please call the lab [id number] within 24 hours of collection time if culture is needed Performed By: #### 5 6101, 79468, 85520, 90916, 49778, 81107, 75491 #### [facility] [address] [place] [address], [place] Color (U) BELLA Abnormal YELLOW [facility] Comment on above: Order Comment: No: D o not add to previous drawCriteria for reflexing a culture was not met. Please call the lab [id number] within 24 hours of collection time if culture is needed Performed By: #### 5 6101, 91388, 41756, 09259, 71778, 41092, 72518 #### [facility] [address] [place] [address], [place] EPIS NONE SEEN Normal FEW,OCC,NONE SEEN [facility] Comment on above: Order Comment: No: D o not add to previous drawCriteria for reflexing a culture was not met. Please call the lab [id number] within 24 hours of collection time if culture is needed Performed By: #### 5 6101, 15618, 20085, 20420, 66240, 10867, 29601 #### [facility] [address] [place] [address], [place] Glucose [Mass/Vol] Negative Normal NEGATIVE The [facility] Comment on above: Order Comment: No: D o not add to previous drawCriteria for reflexing a culture was not met. Please call the lab [id number] within 24 hours of collection time if culture is needed Performed By: #### 5 6101, 86074, 26933, 95041, 20933, 24931, 29239 #### [facility] [address] [place] [address], [facility] KETONE Negative Normal NEGATIVE [facility] Comment on above: Order Comment: No: D o not add to previous drawCriteria for reflexing a culture was not met. Please call the lab [id number] within 24 hours of collection time if culture is needed Performed By: #### 5 6101, 80292, 21166, 61995, 86725, 65324, 27047 #### [facility] [address] [facility] [place] [address], [facility] LEUK ODALIS Negative Normal NEGATIVE [facility] Comment on above: Order Comment: No: D o not add to previous drawCriteria for reflexing a culture was not met. Please call the lab [id number] within 24 hours of collection time if culture is needed Performed By: #### 5 6101, 86626, 06458, 49362, 27653, 39382, 21424 #### [facility] [address] [facility] [place] [address], [facility] MUCUS THREADS MANY Abnormal NONE SEEN The [facility] Comment on above: Order Comment: No: D o not add to previous drawCriteria for reflexing a culture was not met. Please call the lab [id number] within 24 hours of collection time if culture is needed Performed By: #### 5 6101, 49108, 13018, 78738, 77587, 05007, 10595 #### [facility] [address] [place] [address], [facility] Nitrite Ql (U) Negative Normal NEGATIVE The [facility] Comment on above: Order Comment: No: D o not add to previous drawCriteria for reflexing a culture was not met. Please call the lab [id number] within 24 hours of collection time if culture is needed Performed By: #### 5 6101, 90226, 33546, 63339, 97739, 84001, 32462 #### [facility] [address] [place] [address], [facility] pH (Bld) 6.0 Normal 5.0-8.0 [facility] Comment on above: Order Comment: No: D o not add to previous drawCriteria for reflexing a culture was not met. Please call the lab [id number] within 24 hours of collection time if culture is needed Performed By: #### 5 6101, 15784, 97548, 96427, 74780, 65623, 23069 #### [facility] [address] [place] [address], [facility] Protein (U) [Mass/Vol] Negative Normal NEGATIVE [facility] Comment on above: Order Comment: No: D o not add to previous drawCriteria for reflexing a culture was not met. Please call the lab [id number] within 24 hours of collection time if culture is needed Performed By: #### 5 6101, 39171, 27251, 28535, 55506, 20101, 74181 #### [facility] [address] [facility] [place] [address], [facility] RBC (U) [#/Vol] NONE SEEN Normal NONE SEEN The [facility] Comment on above: Order Comment: No: D o not add to previous drawCriteria for reflexing a culture was not met. Please call the lab [id number] within 24 hours of collection time if culture is needed Performed By: #### 5 6101, 82924, 62894, 81677, 31327, 30789, 97121 #### [facility] [address] [place] [address], [place] SPEC GRAV 1.016 Normal 1.015-1.020 The [facility] Comment on above: Order Comment: No: D o not add to previous drawCriteria for reflexing a culture was not met. Please call the lab [id number] within 24 hours of collection time if culture is needed Performed By: #### 5 6101, 23874, 16173, 48400, 07049, 17290, 97778 #### [facility] [address] [facility]. [address] WBC UA 0-2 Abnormal NONE SEEN [facility] Comment on above: Order Comment: No: D o not add to previous drawCriteria for reflexing a culture was not met. Please call the lab [email or web address] within 24 hours of collection time if culture is needed Performed By: #### 5 6101, 26386, 62447, 39535, 40728, 02150, 18268 #### [facility] [address] [facility]. [address] *BLOOD CULTUREon 11-04-2019 Bacteria identified Cx Nom (Bld) Clinical Report: (D) Specimen: BLOOD CULTURE Collected: 11/04/2019 13:45 Status: Final Last Updated: 11/10/2019 07:39 CULT RES (Final) No Growth Day 5 Normal [facility] Comment on above: Performed By: #### 5 6101, 97698, 40589, 27645, 55320, 02661, 19855 #### [facility] [address] [facility]. [address] CBC W/DIFFon 11-04-2019 ABS BASOPHILS 0.0 10*3/uL Normal 0.0-0.2 [facility] Comment on above: Performed By: #### 5 6101, 92625, 07581, 24090, 83676, 14592, 60157 #### [facility] [address] [facility]. [address] ABS NEUTROPHILS 16.3 10*3/uL High 1.6-7.6 [facility] Comment on above: Performed By: #### 5 6101, 10678, 01524, 42371, 35073, 82692, 43110 #### [facility] [address] [facility]. [address] ANISO Moderate Normal [facility] Comment on above: Performed By: #### 5 6101, 73340, 77973, 88822, 40825, 64981, 01666 #### [facility] [address] [place] [address], [facility] Basophils/100 WBC (Bld) 0.0 % Normal 0.0-1.0 [facility] Comment on above: Performed By: #### 5 6101, 50295, 94604, 16663, 07176, 35746, 25731 #### [facility] [address] [facility]. [address] DOHLE BODIES Slight Normal The [facility] Comment on above: Performed By: #### 5 6101, 06234, 23894, 92026, 06766, 34313, 53496 #### [facility] [address] [facility]. [address] Eosinophils (Bld) [#/Vol] 0.0 10*3/uL Normal 0.0-0.5 [facility] Comment on above: Performed By: #### 5 6101, 12534, 52712, 78916, 14558, 56031, 95608 #### [facility] [address] [facility] [place] [address], [facility] Eosinophils/100 WBC (Bld) 0.0 % Normal 0.0-6.0 [facility] Comment on above: Performed By: #### 5 6101, 22453, 48710, 04099, 64373, 75536, 16618 #### [facility] [address] [facility]. [address] Erythrocyte distribution width (RBC) [Ratio] 15.6 % High 11.5-15.0 [facility] Comment on above: Performed By: #### 5 6101, 91509, 82429, 51737, 69167, 23524, 84693 #### [facility] [address] [facility] [place] [address], [facility] GIANT PLATELETS Present Normal [facility] Comment on above: Performed By: #### 5 6101, 97992, 54630, 83118, 50841, 33741, 95336 #### [facility] [address] [facility] [address] Hematocrit (Bld) [Volume fraction] 21.1 % Low 39.0-50.0 [facility] Comment on above: Performed By: #### 5 6101, 70826, 81679, 38110, 61867, 35730, 51218 #### [facility] [address] [facility] [address] Hemoglobin (Bld) [Mass/Vol] 7.1 g/dL Low 13.0-17.0 [facility] Comment on above: Performed By: #### 5 6101, 51052, 91087, 81673, 17976, 22405, 72416 #### [facility] [address] [facility] [address] Lymphocytes (Bld) [#/Vol] 0.5 10*3/uL Low 1.2-4.0 [facility] Comment on above: Performed By: #### 5 6101, 04359, 00630, 57789, 28327, 57025, 59729 #### [facility] [address] [facility]. [address] Lymphocytes/100 WBC (Bld) 2.7 % Low 20.0-45.0 [facility] Comment on above: Performed By: #### 5 6101, 02751, 72572, 01265, 86559, 65786, 98081 #### [facility] [address] [facility] [place] [address], [facility] MCH (RBC) [Entitic mass] 30.9 pg Normal 27.0-33.0 [facility] Comment on above: Performed By: #### 5 6101, 62781, 34244, 89999, 74489, 99028, 85203 #### [facility] [address] MCHC (RBC) [Mass/Vol] 33.6 g/dL Normal 32.0-35.0 [facility] Comment on above: Performed By: #### 5 6101, 34471, 19437, 30248, 41099, 74574, 07780 #### [facility] [address] [facility] [place] [address], [facility] MCV (RBC) [Entitic vol] 91.7 fL Normal 82.0-98.0 [facility] Comment on above: Performed By: #### 5 6101, 61786, 68870, 43738, 97948, 63349, 17796 #### [facility] [address] [place] [address], [facility] Monocytes (Bld) [#/Vol] 1.9 10*3/uL High 0.1-1.0 [facility] Comment on above: Performed By: #### 5 6101, 78545, 92321, 50966, 08731, 49568, 66110 #### [facility] [address] [facility]. [address] MONOS 10.1 % Normal 5.0-12.0 [facility] Comment on above: Performed By: #### 5 6101, 15142, 21131, 48369, 20669, 28063, 20833 #### [facility] [address] [facility] [place] [address], [facility] Neutrophils/100 WBC (Bld) 87.2 % High 40.0-72.0 [facility] Comment on above: Performed By: #### 5 6101, 76634, 82798, 72353, 02952, 94526, 09478 #### [facility] [address] [facility] [place] [address], [facility] Nucleated RBC/100 WBC (Bld) [Ratio] 0 % Normal 0-0 [facility] Comment on above: Performed By: #### 5 6101, 15586, 96094, 44111, 31520, 74998, 24542 #### [facility] [address] [facility]. [address] PLAT CNT 304 10*3/uL Normal 150-400 The [facility] Comment on above: Performed By: #### 5 6101, 19732, 46485, 65710, 69986, 47117, 04265 #### [facility] [address] [facility]. [address] POIK Moderate Normal [facility] Comment on above: Performed By: #### 5 6101, 53496, 98891, 14558, 25304, 73205, 96808 #### [facility] [address] [facility]. [address] POLY Slight Normal [facility] Comment on above: Performed By: #### 5 6101, 70887, 84056, 70970, 48530, 07977, 60384 #### [facility] [address] [facility]. [address] RBC (Bld) [#/Vol] 2.30 10*6/uL Low 4.20-5.70 The [facility] Comment on above: Performed By: #### 5 6101, 11553, 05765, 42079, 69769, 06046, 28748 #### [facility] [address] [facility]. [address] TARGET CELLS Moderate Normal The [facility] Comment on above: Performed By: #### 5 6101, 61662, 16865, 79674, 11175, 06250, 17994 #### [facility] [address] [facility]. [address] TOXIC GRANULATION Moderate Normal [facility] Comment on above: Performed By: #### 5 6101, 50672, 95907, 39969, 74028, 89735, 19755 #### [facility] [address] [place] [address], [facility] WBC (Bld) [#/Vol] 18.67 10*3/uL High 4.00-10.60 [facility] Comment on above: Performed By: #### 5 6101, 81216, 76918, 76827, 72967, 61086, 66211 #### [facility] [address] [place] [address], [facility] COMP METABOLIC PANELon 11-04 Albumin [Mass/Vol] 2.1 g/dL Low 3.5-5.7 [facility] Comment on above: Order Comment: No: D o not add to previous draw Performed By: #### 5 6101, 70655, 97324, 90730, 50734, 42747, 16283 #### [facility] [address] [facility] [address] ALKALINE PHOSPH 153 IU/L High 34-104 The [facility] Comment on above: Order Comment: No: D o not add to previous draw Performed By: #### 5 6101, 82506, 16323, 38727, 03235, 41953, 54131 #### [facility] [address] ALT [Catalytic activity/Vol] 16 U/L Normal 7-52 [facility] Comment on above: Order Comment: No: D o not add to previous draw Performed By: #### 5 6101, 17599, 10839, 18661, 14143, 05511, 66781 #### [facility] [address] [place] [address], [facility] AST [Catalytic activity/Vol] 14 U/L Normal 13-39 [facility] Comment on above: Order Comment: No: D o not add to previous draw Performed By: #### 5 6101, 33287, 08848, 15948, 75647, 27981, 34567 #### [facility] [address] [place] [address], [place] Bilirubin [Mass/Vol] 1.6 mg/dL High 0.3-1.0 [facility] Comment on above: Order Comment: No: D o not add to previous draw Performed By: #### 5 6101, 41625, 78485, 95539, 34198, 90023, 87827 #### [facility] [address] [place] [address], [place] Calcium [Mass/Vol] 7.5 mg/dL Low 8.6-10.3 [facility] Comment on above: Order Comment: No: D o not add to previous draw Performed By: #### 5 6101, 07594, 68083, 93341, 49958, 66733, 65434 #### [facility] [address] [place] [address], [place] Chloride [Moles/Vol] 97 mmol/L Low 98-107 [facility] Comment on above: Order Comment: No: D o not add to previous draw Performed By: #### 5 6101, 44537, 64887, 63942, 01811, 72774, 08159 #### [facility] [address] [place] [address], [place] CO2 [Moles/Vol] 26 mmol/L Normal 21-31 The [facility] Comment on above: Order Comment: No: D o not add to previous draw Performed By: #### 5 6101, 42517, 02529, 85292, 66302, 74164, 15942 #### [facility] [address] [place] [address], [place] Creatinine [Mass/Vol] 0.40 mg/dL Low 0.70-1.30 [facility] Comment on above: Order Comment: No: D o not add to previous draw Performed By: #### 5 6101, 16605, 42841, 64211, 28914, 73267, 33835 #### [facility] [address] [place] [address], [place] GFR/1.73 sq M predicted among blacks MDRD (S/P/Bld) [Vol rate/Area] mL/min/{1.73_m2} Normal >60 [facility] Comment on above: Order Comment: No: D o not add to previous draw Performed By: #### 5 6101, 16135, 81268, 79682, 80350, 59956, 37029 #### [facility] [address] [place] [address], [place] GFR/1.73 sq M predicted among non-blacks MDRD (S/P/Bld) [Vol rate/Area] mL/min/{1.73_m2} Normal >60 [facility] Comment on above: Order Comment: No: D o not add to previous draw Performed By: #### 5 6101, 89845, 52234, 08230, 81622, 45490, 91554 #### [facility] [address] [place] [address], [place] Glucose [Mass/Vol] 88 mg/dL Normal 70-100 The [facility] Comment on above: Order Comment: No: D o not add to previous draw Performed By: #### 5 6101, 22490, 60078, 20437, 88109, 05826, 56325 #### [facility] [address] [place] [address], [place] Potassium [Moles/Vol] 4.0 mmol/L Normal 3.5-5.1 [facility] Comment on above: Order Comment: No: D o not add to previous draw Performed By: #### 5 6101, 30984, 97302, 46745, 82883, 18788, 72079 #### [facility] [address] [place] [address], [place] Protein [Mass/Vol] 4.8 g/dL Low 6.0-8.3 The [facility] Comment on above: Order Comment: No: D o not add to previous draw Performed By: #### 5 6101, 76650, 90316, 76202, 23530, 92107, 78547 #### [facility] [address] [place] [address], [facility] Sodium [Moles/Vol] 128 mmol/L Low 136-145 The [facility] Comment on above: Order Comment: No: D o not add to previous draw Performed By: #### 5 6101, 05950, 15492, 31567, 78049, 13209, 23130 #### [facility] [address] [place] [address], [facility] Urea nitrogen [Mass/Vol] 5 mg/dL Low 7-25 [facility] Comment on above: Order Comment: No: D o not add to previous draw Performed By: #### 5 6101, 53241, 30430, 14760, 96554, 13373, 81004 #### [facility] [address] [place] [address], [facility] MAGNESIUM BLOODon 11-04-2019 Magnesium [Mass/Vol] 1.7 mg/dL Low 1.9-2.7 [facility] Comment on above: Order Comment: No: D o not add to previous draw Performed By: #### 5 6101, 01062, 88110, 26161, 71743, 95960, 93651 #### [facility] [address] [place] [address], [facility] PHOSPHORUS BLOODon 9 Phosphate [Mass/Vol] 2.7 mg/dL Normal 2.5-5.0 [facility] Comment on above: Order Comment: No: D o not add to previous draw Performed By: #### 5 6101, 07924, 94731, 41574, 55458, 49642, 10831 #### [facility] [address] [place] [address], [facility] UFH HEPARIN ASSAYon 11-04-20 19 UNFRACTIONATED HEPARIN <0.10 Critically low 0.30-0.70 [facility] Comment on above: Result Comment: Jo Ann roxaban and Apixaban will interfere with the anti Xa assay used to monitor UFH and LMWH. RESULTS CHECKED AND CALLED. ACCURATELY READ BACK BY MATTHEW MORRISON RN AT 08:02 RN STATES PATIENT IS STILL ON HEPARIN DRIP. Performed By: #### 5 6101, 46750, 04976, 67640, 02193, 09408, 15495 #### [facility] [address] UNFRACTIONATED HEPARIN 0.26 IU/mL Low 0.30-0.70 [facility] Comment on above: Result Comment: [place] roxaban and Apixaban will interfere with the anti Xa assay used to monitor UFH and LMWH. Performed By: #### 5 6101, 78807, 40253, 30367, 09461, 48851, 62444 #### [facility] [address] APTTon 11-03-2019 aPTT Coag (Bld) [Time] 161.0 s Critically high 25.0-35.0 [facility] Comment on above: Order Comment: No: [...] AT 10:25 Performed By: #### 5 6101, 48404, 82295, 03481, 48107, 25013, 33349 #### [facility] [address] [place] [address], [facility] BASIC METABOLIC PANELon 12- Calcium [Mass/Vol] 7.5 mg/dL Low 8.6-10.3 [facility] Comment on above: Order Comment: No: D o not add to previous draw Performed By: #### 5 6101, 32350, 35216, 01595, 94399, 24706, 15870 #### [facility] [address] [place] [address], [facility] Chloride [Moles/Vol] 96 mmol/L Low 98-107 [facility] Comment on above: Order Comment: No: D o not add to previous draw Performed By: #### 5 6101, 86062, 48186, 83376, 22817, 06536, 17873 #### [facility] [address] [place] [address], [facility] CO2 [Moles/Vol] 29 mmol/L Normal 21-31 [facility] Comment on above: Order Comment: No: D o not add to previous draw Performed By: #### 5 6101, 91510, 33546, 36053, 43326, 05043, 42172 #### [facility] [address] [place] [address], [facility] Creatinine [Mass/Vol] 0.41 mg/dL Low 0.70-1.30 [facility] Comment on above: Order Comment: No: D o not add to previous draw Performed By: #### 5 6101, 14836, 75287, 29895, 78898, 56330, 87177 #### [facility] [address] [place] [address], [place] GFR/1.73 sq M predicted among blacks MDRD (S/P/Bld) [Vol rate/Area] mL/min/{1.73_m2} Normal >60 [facility] Comment on above: Order Comment: No: D o not add to previous draw Performed By: #### 5 6101, 39304, 93094, 47716, 96341, 71066, 89561 #### [facility] [address] [place] [id number], [facility] GFR/1.73 sq M predicted among non-blacks MDRD (S/P/Bld) [Vol rate/Area] mL/min/{1.73_m2} Normal >60 [facility] Comment on above: Order Comment: No: D o not add to previous draw Performed By: #### 5 6101, 80049, 32145, 61625, 14415, 08491, 06660 #### [facility] [address] [place] [address], [facility] Glucose [Mass/Vol] 86 mg/dL Normal 70-100 [facility] Comment on above: Order Comment: No: D o not add to previous draw Performed By: #### 5 6101, 84210, 32306, 64445, 81659, 13740, 11789 #### [facility] [address] [place] [address], [facility] Potassium [Moles/Vol] 3.4 mmol/L Low 3.5-5.1 [facility] Comment on above: Order Comment: No: D o not add to previous draw Performed By: #### 5 6101, 67053, 30623, 98160, 52507, 73843, 50735 #### [facility] [address] [place] [address], [facility] Sodium [Moles/Vol] 129 mmol/L Low 136-145 [facility] Comment on above: Order Comment: No: D o not add to previous draw Performed By: #### 5 6101, 61665, 14679, 96386, 23861, 74252, 85924 #### [facility] [address] [place] [address], [facility] Urea nitrogen [Mass/Vol] 5 mg/dL Low 7-25 [facility] Comment on above: Order Comment: No: D o not add to previous draw Performed By: #### 5 6101, 16535, 43836, 19114, 88618, 38750, 59359 #### [facility] [address] [facility]. [address] CALCIUM IONIZED CBGLon 11-03 IONIZED CALCIUM 1.07 mmol/L Low 1.12-1.30 The [facility] Comment on above: Performed By: #### 5 6101, 94017, 53172, 60231, 32060, 35848, 29080 #### [facility] [address] CBC COMPLETE BLOOD COUNTon 1 01-04-2019 Erythrocyte distribution width (RBC) [Ratio] 14.5 % Normal 11.5-15.0 [facility] Comment on above: Order Comment: No: D o not add to previous draw Performed By: #### 5 6101, 50481, 35282, 05578, 70758, 70676, 24498 #### [facility] [address] Hematocrit (Bld) [Volume fraction] 22.1 % Low 39.0-50.0 [facility] Comment on above: Order Comment: No: D o not add to previous draw Performed By: #### 5 6101, 65453, 65989, 47522, 59524, 45816, 58339 #### [facility] [address] Hemoglobin (Bld) [Mass/Vol] 7.5 g/dL Low 13.0-17.0 [facility] Comment on above: Order Comment: No: D o not add to previous draw Performed By: #### 5 6101, 20992, 21891, 52258, 74259, 19088, 10611 #### [facility] [address] MCH (RBC) [Entitic mass] 30.9 pg Normal 27.0-33.0 [facility] Comment on above: Order Comment: No: D o not add to previous draw Performed By: #### 5 6101, 65154, 21823, 50461, 03702, 16002, 35812 #### [facility] [address] [facility] [address] MCHC (RBC) [Mass/Vol] 33.9 g/dL Normal 32.0-35.0 [facility] Comment on above: Order Comment: No: D o not add to previous draw Performed By: #### 5 6101, 60655, 03653, 62101, 97565, 33638, 58820 #### [facility] [address] [place] [address], [facility] MCV (RBC) [Entitic vol] 90.9 fL Normal 82.0-98.0 [facility] Comment on above: Order Comment: No: D o not add to previous draw Performed By: #### 5 6101, 91918, 59193, 63435, 85412, 22418, 17689 #### [facility] [address] [facility] Nucleated RBC/100 WBC (Bld) [Ratio] 0 % Normal 0-0 [facility] Comment on above: Order Comment: No: D o not add to previous draw Performed By: #### 5 6101, 32204, 05186, 34618, 42447, 12004, 40478 #### [facility] [address] [facility] [place] [address], [facility] PLAT CNT 204 10*3/uL Normal 150-400 [facility] Comment on above: Order Comment: No: D o not add to previous draw Performed By: #### 5 6101, 75038, 32341, 26311, 59412, 00769, 62889 #### [facility] [address] [facility] [place] [address], [facility] RBC (Bld) [#/Vol] 2.43 10*6/uL Low 4.20-5.70 [facility] Comment on above: Order Comment: No: D o not add to previous draw Performed By: #### 5 6101, 50216, 84584, 19943, 42334, 20876, 17923 #### [facility] [address] [place] [address], [facility] WBC (Bld) [#/Vol] 19.35 10*3/uL High 4.00-10.60 [facility] Comment on above: Order Comment: No: D o not add to previous draw Performed By: #### 5 6101, 61252, 72484, 40355, 81701, 76770, 49966 #### [facility] [address] [place] [address], [facility] MAGNESIUM BLOODon 11-03-2019 Magnesium [Mass/Vol] 1.6 mg/dL Low 1.9-2.7 [facility] Comment on above: Order Comment: No: D o not add to previous draw Performed By: #### 5 6101, 94249, 13587, 86009, 08060, 35505, 31761 #### [facility] [address] [place] [address], [facility] PHOSPHORUS BLOODon 9 Phosphate [Mass/Vol] 2.6 mg/dL Normal 2.5-5.0 [facility] Comment on above: Order Comment: No: D o not add to previous draw Performed By: #### 5 6101, 71231, 71033, 39290, 19878, 40470, 68974 #### [facility] [address] [place] [address], [facility] Phosphate [Mass/Vol] 2.5 mg/dL Normal 2.5-5.0 [facility] Comment on above: Order Comment: No: D o not add to previous draw Performed By: #### 5 6101, 03978, 94710, 86701, 29906, 79974, 07971 #### [facility] [address] [place] [address], [facility] PROTHROMBIN TIMEon 12-05-201 9 INR Coag (PPP) [Relative time] 1.40 {INR} High 0.91-1.16 [facility] Comment on above: Order Comment: No: [...] CHEST 1995;[id number]. Performed By: #### 5 6101, 08128, 54012, 74473, 89921, 54663, 14788 #### [facility] [address] PT Coag (PPP) [Time] 17.3 s High 12.3-14.8 [facility] Comment on above: Order Comment: No: D o not add to previous draw Result Comment: ALL RESULTS MUST BE INTERPRETED WITH RESPECT TO BLOOD DRAWING ARTIFACT OR DILUTION ERROR OF ANTICOAGULANT AT THE TIME OF SAMPLING. Performed By: #### 5 6101, 92554, 75268, 14937, 27820, 52422, 53794 #### [facility] [address] UFH HEPARIN ASSAYon 11-03-20 UNFRACTIONATED HEPARIN 0.21 IU/mL Low 0.30-0.70 [facility] Comment on above: Order Comment: Pt ca re Result Comment: [place] roxaban and Apixaban will interfere with the anti Xa assay used to monitor UFH and LMWH. Performed By: #### 5 6101, 71162, 80008, 00549, 31558, 67976, 97487 #### [facility] [address] [place] [address], [facility] UNFRACTIONATED HEPARIN 0.23 IU/mL Low 0.30-0.70 [facility] Comment on above: Result Comment: Jo Ann roxaban and Apixaban will interfere with the anti Xa assay used to monitor UFH and LMWH. Performed By: #### 5 6101, 85071, 19040, 12262, 91447, 99214, 81968 #### [facility] [address] [place] [address], [facility] UNFRACTIONATED HEPARIN 0.31 IU/mL Normal 0.30-0.70 [facility] Comment on above: Result Comment: [place] roxaban and Apixaban will interfere with the anti Xa assay used to monitor UFH and LMWH. Performed By: #### 5 6101, 10495, 26608, 24524, 31166, 58048, 56389 #### [facility] [address] [place] [address], [facility] UNFRACTIONATED HEPARIN 0.30 IU/mL Normal 0.30-0.70 [facility] Comment on above: Order Comment: Pt re fused labs. Result Comment: Jo Ann roxaban and Apixaban will interfere with the anti Xa assay used to monitor UFH and LMWH. Performed By: #### 5 6101, 72025, 54415, 07304, 98264, 74871, 10736 #### [facility] [address] [place] [address], [facility] BASIC METABOLIC PANELon 12-0 Calcium [Mass/Vol] 7.2 mg/dL Low 8.6-10.3 [facility] Comment on above: Order Comment: No: D o not add to previous draw Performed By: #### 5 6101, 94250, 65664, 98438, 38357, 09752, 75306 #### [facility] [address] [place] [address], [facility] Chloride [Moles/Vol] 96 mmol/L Low 98-107 [facility] Comment on above: Order Comment: No: D o not add to previous draw Performed By: #### 5 6101, 97597, 56362, 63693, 62663, 13678, 56074 #### [facility] [address] [place] [address], [place] CO2 [Moles/Vol] 30 mmol/L Normal 21-31 [facility] Comment on above: Order Comment: No: D o not add to previous draw Performed By: #### 5 6101, 01781, 38683, 04091, 82050, 36652, 93461 #### [facility] [address] [place] [address], [facility] Creatinine [Mass/Vol] 0.45 mg/dL Low 0.70-1.30 [facility] Comment on above: Order Comment: No: D o not add to previous draw Performed By: #### 5 6101, 29578, 16788, 53314, 35431, 65038, 90059 #### [facility] [address] [place] [address], [facility] GFR/1.73 sq M predicted among blacks MDRD (S/P/Bld) [Vol rate/Area] mL/min/{1.73_m2} Normal >60 [facility] Comment on above: Order Comment: No: D o not add to previous draw Performed By: #### 5 6101, 49137, 52157, 48623, 43826, 40161, 83609 #### [facility] [address] [place] [address], [place] GFR/1.73 sq M predicted among non-blacks MDRD (S/P/Bld) [Vol rate/Area] mL/min/{1.73_m2} Normal >60 [facility] Comment on above: Order Comment: No: D o not add to previous draw Performed By: #### 5 6101, 06865, 91609, 12484, 26543, 03177, 04442 #### [facility] [address] [place] [address], [place] Glucose [Mass/Vol] 94 mg/dL Normal 70-100 The [facility] Comment on above: Order Comment: No: D o not add to previous draw Performed By: #### 5 6101, 08345, 23764, 00995, 42824, 73072, 44292 #### [facility] [address] [place] [address], [facility] Potassium [Moles/Vol] 3.3 mmol/L Low 3.5-5.1 [facility] Comment on above: Order Comment: No: D o not add to previous draw Performed By: #### 5 6101, 50021, 23084, 26848, 98856, 96701, 18776 #### [facility] [address] [place] [address], [place] Sodium [Moles/Vol] 128 mmol/L Low 136-145 [facility] Comment on above: Order Comment: No: D o not add to previous draw Performed By: #### 5 6101, 22674, 88220, 07055, 65757, 78210, 78913 #### [facility] [address] [place] [address], [place] Urea nitrogen [Mass/Vol] 5 mg/dL Low 7-25 [facility] Comment on above: Order Comment: No: D o not add to previous draw Performed By: #### 5 6101, 53710, 90873, 76031, 55597, 12519, 13597 #### [facility] [address] [place] [address], [place] CALCIUMon 11-02-2019 Calcium [Mass/Vol] 7.2 mg/dL Low 8.6-10.3 The [facility] Comment on above: Order Comment: No: D o not add to previous draw Performed By: #### 5 6101, 66013, 85630, 60393, 33876, 50612, 14675 #### [facility] [address] [place] [id number] CBC COMPLETE BLOOD COUNTon 01-03-2019 Erythrocyte distribution width (RBC) [Ratio] 13.9 % Normal 11.5-15.0 [facility] Comment on above: Order Comment: No: D o not add to previous draw Performed By: #### 5 6101, 34647, 86773, 74884, 80154, 53893, 41081 #### [facility] [address] Hematocrit (Bld) [Volume fraction] 21.4 % Low 39.0-50.0 [facility] Comment on above: Order Comment: No: D o not add to previous draw Performed By: #### 5 6101, 19480, 84055, 25521, 91840, 77993, 96510 #### [facility] [address] [place] [address], [facility] Hemoglobin (Bld) [Mass/Vol] 7.6 g/dL Low 13.0-17.0 [facility] Comment on above: Order Comment: No: D o not add to previous draw Performed By: #### 5 6101, 87556, 10271, 27756, 68987, 64712, 22230 #### [facility] [address] [place] [address], [facility] MCH (RBC) [Entitic mass] 31.1 pg Normal 27.0-33.0 [facility] Comment on above: Order Comment: No: D o not add to previous draw Performed By: #### 5 6101, 53666, 88988, 03226, 92132, 81034, 02102 #### [facility] [address] [place] [address], [facility] MCHC (RBC) [Mass/Vol] 35.5 g/dL High 32.0-35.0 [facility] Comment on above: Order Comment: No: D o not add to previous draw Performed By: #### 5 6101, 90567, 41782, 76190, 54000, 79134, 90653 #### [facility] [address] [place] [id number], [facility] MCV (RBC) [Entitic vol] 87.7 fL Normal 82.0-98.0 [facility] Comment on above: Order Comment: No: D o not add to previous draw Performed By: #### 5 6101, 31537, 56432, 81077, 01338, 53321, 96934 #### [facility] [address] [place] [address], [facility] Nucleated RBC/100 WBC (Bld) [Ratio] 0 % Normal 0-0 [facility] Comment on above: Order Comment: No: D o not add to previous draw Performed By: #### 5 6101, 52937, 73455, 86156, 62138, 39445, 66409 #### [facility] [address] [place] [address], [facility] PLAT CNT 144 10*3/uL Low 150-400 [facility] Comment on above: Order Comment: No: D o not add to previous draw Performed By: #### 5 6101, 08316, 42534, 29710, 01518, 42523, 30857 #### [facility] [address] [place] [id number], [facility] RBC (Bld) [#/Vol] 2.44 10*6/uL Low 4.20-5.70 [facility] Comment on above: Order Comment: No: D o not add to previous draw Performed By: #### 5 6101, 05135, 98585, 28442, 43607, 12407, 90318 #### [facility] [address] WBC (Bld) [#/Vol] 16.13 10*3/uL High 4.00-10.60 [facility] Comment on above: Order Comment: No: D o not add to previous draw Performed By: #### 5 6101, 15300, 75887, 07514, 87137, 57675, 64684 #### [facility] [address] MAGNESIUM BLOODon 11-02-2019 Magnesium [Mass/Vol] 1.6 mg/dL Low 1.9-2.7 [facility] Comment on above: Order Comment: No: D o not add to previous draw Performed By: #### 5 6101, 32798, 85919, 15021, 15511, 28143, 44564 #### [facility] [address] [facility] [address] PHOSPHORUS BLOODon 9 Phosphate [Mass/Vol] 2.5 mg/dL Normal 2.5-5.0 [facility] Comment on above: Order Comment: No: D o not add to previous draw Performed By: #### 5 6101, 73418, 66157, 85319, 66689, 58348, 66161 #### [facility] [address] [facility] [address] UFH HEPARIN ASSAYon 11-02-20 19 UNFRACTIONATED HEPARIN 0.10 IU/mL Critically low 0.30-0.70 [facility] Comment on above: Result Comment: [place] roxaban and Apixaban will interfere with the anti Xa assay used to monitor UFH and LMWH. RESULTS CHECKED AND CALLED. ACCURATELY READ BACK BY SUELLEN KAUR RN @ 2020 Performed By: #### 5 6101, 06501, 60416, 96848, 51910, 88250, 70468 #### [facility] [address] UNFRACTIONATED HEPARIN <0.10 Critically low 0.30-0.70 [facility] Comment on above: Result Comment: [place] roxaban and Apixaban will interfere with the anti Xa assay used to monitor UFH and LMWH. RESULTS CHECKED AND CALLED. ACCURATELY READ BACK BY JACOBY GREGORIO RN AT 0618 Performed By: #### 5 6101, 62889, 71848, 02931, 05872, 64497, 73201 #### [facility] [address] [facility] [address] BASIC METABOLIC PANELon 12-0 Calcium [Mass/Vol] 6.8 mg/dL Low 8.6-10.3 [facility] Comment on above: Order Comment: No: D o not add to previous draw Performed By: #### 5 6101, 11124, 40786, 96122, 67152, 64771, 41638 #### [facility] [address] [facility] [place] [address], [facility] Chloride [Moles/Vol] 95 mmol/L Low 98-107 [facility] Comment on above: Order Comment: No: D o not add to previous draw Performed By: #### 5 6101, 67031, 37811, 33329, 86168, 27542, 07822 #### [facility] [address] [facility] [place] [address], [facility] CO2 [Moles/Vol] 29 mmol/L Normal 21-31 [facility] Comment on above: Order Comment: No: D o not add to previous draw Performed By: #### 5 6101, 11492, 21170, 24938, 23665, 72568, 19516 #### [facility] [address] [facility] [place] [address], [facility] Creatinine [Mass/Vol] 0.43 mg/dL Low 0.70-1.30 [facility] Comment on above: Order Comment: No: D o not add to previous draw Performed By: #### 5 6101, 04279, 14847, 88067, 75645, 07538, 58630 #### [facility] [address] [place] [address], [place] GFR/1.73 sq M predicted among blacks MDRD (S/P/Bld) [Vol rate/Area] mL/min/{1.73_m2} Normal >60 [facility] Comment on above: Order Comment: No: D o not add to previous draw Performed By: #### 5 6101, 18868, 86016, 12230, 52360, 50243, 63245 #### [facility] [address] [place] [address], [facility] GFR/1.73 sq M predicted among non-blacks MDRD (S/P/Bld) [Vol rate/Area] mL/min/{1.73_m2} Normal >60 [facility] Comment on above: Order Comment: No: D o not add to previous draw Performed By: #### 5 6101, 27670, 74371, 59014, 14723, 25500, 60815 #### [facility] [address] [place] [address], [place] Glucose [Mass/Vol] 113 mg/dL High 70-100 [facility] Comment on above: Order Comment: No: D o not add to previous draw Performed By: #### 5 6101, 57962, 93241, 40608, 55638, 95872, 64529 #### [facility] [address] [place] [address], [place] Potassium [Moles/Vol] 3.0 mmol/L Low 3.5-5.1 [facility] Comment on above: Order Comment: No: D o not add to previous draw Performed By: #### 5 6101, 74709, 50492, 09674, 44903, 91465, 92182 #### [facility] [address] [place] [address], [place] Sodium [Moles/Vol] 131 mmol/L Low 136-145 [facility] Comment on above: Order Comment: No: D o not add to previous draw Performed By: #### 5 6101, 47756, 00897, 03982, 18077, 10616, 31568 #### [facility] [address] [place] [address], [facility] Urea nitrogen [Mass/Vol] 7 mg/dL Normal 7-25 [facility] Comment on above: Order Comment: No: D o not add to previous draw Performed By: #### 5 6101, 71973, 11251, 34431, 80044, 83475, 38159 #### [facility] [address] [place] [address], [facility] CALCIUM IONIZED CBGLon 11-01 IONIZED CALCIUM 1.01 mmol/L Low 1.12-1.30 [facility] Comment on above: Order Comment: Pt us ing restroom, come back Performed By: #### 5 6101, 57652, 15612, 37532, 72109, 48132, 17973 #### [facility] [address] [place] [address], [facility] CBC COMPLETE BLOOD COUNTon 1 01-02-2019 Erythrocyte distribution width (RBC) [Ratio] 14.2 % Normal 11.5-15.0 [facility] Comment on above: Order Comment: No: D o not add to previous draw Performed By: #### 5 6101, 69164, 11191, 47043, 71568, 51633, 81520 #### [facility] [address] [place] [address], [place] Hematocrit (Bld) [Volume fraction] 18.2 % Low 39.0-50.0 [facility] Comment on above: Order Comment: No: D o not add to previous draw Performed By: #### 5 6101, 79830, 55680, 28823, 88840, 13521, 78528 #### [facility] [address] Hemoglobin (Bld) [Mass/Vol] 6.5 g/dL Low 13.0-17.0 [facility] Comment on above: Order Comment: No: D o not add to previous draw Performed By: #### 5 6101, 70331, 07417, 79083, 85139, 12272, 47210 #### [facility] [address] [place] [address], [facility] IMM PLATELET FRAC 11.4 % High 0.8-6.3 [facility] Comment on above: Order Comment: No: D o not add to previous draw Performed By: #### 5 6101, 04599, 49258, 62243, 33206, 77682, 59196 #### [facility] [address] [place] [address], [facility] MCH (RBC) [Entitic mass] 31.4 pg Normal 27.0-33.0 [facility] Comment on above: Order Comment: No: D o not add to previous draw Performed By: #### 5 6101, 54745, 07425, 14146, 87376, 82645, 18080 #### [facility] [address] MCHC (RBC) [Mass/Vol] 35.7 g/dL High 32.0-35.0 [facility] Comment on above: Order Comment: No: D o not add to previous draw Performed By: #### 5 6101, 54644, 18607, 49626, 91691, 86416, 16904 #### [facility] [address] [place] [id number], [facility] MCV (RBC) [Entitic vol] 87.9 fL Normal 82.0-98.0 [facility] Comment on above: Order Comment: No: D o not add to previous draw Performed By: #### 5 6101, 68773, 62820, 03651, 68086, 94494, 28462 #### [facility] [address] Nucleated RBC/100 WBC (Bld) [Ratio] 0 % Normal 0-0 [facility] Comment on above: Order Comment: No: D o not add to previous draw Performed By: #### 5 6101, 89141, 06557, 43320, 42718, 41507, 45057 #### [facility] [address] [facility] [place] [place] [address], [facility] PLAT CNT 86 10*3/uL Low 150-400 [facility] Comment on above: Order Comment: No: D o not add to previous draw Result Comment: P=82 23H Performed By: #### 5 6101, 32085, 91824, 33886, 49647, 30413, 13293 #### [facility] [address] [place] [address], [facility] RBC (Bld) [#/Vol] 2.07 10*6/uL Low 4.20-5.70 [facility] Comment on above: Order Comment: No: D o not add to previous draw Performed By: #### 5 6101, 74763, 89221, 76852, 34275, 85451, 31734 #### [facility] [address] [place] [address], [facility] WBC (Bld) [#/Vol] 16.52 10*3/uL High 4.00-10.60 [facility] Comment on above: Order Comment: No: D o not add to previous draw Performed By: #### 5 6101, 51519, 02935, 81531, 72159, 82764, 32504 #### [facility] [address] [place] [address], [facility] HEMOGLOBINon 11-01-2019 Hemoglobin (Bld) [Mass/Vol] 8.1 g/dL Low 13.0-17.0 [facility] Comment on above: Order Comment: No: D o not add to previous draw Performed By: #### 5 6101, 22866, 74791, 53230, 84371, 37673, 98516 #### [facility] [address] Hemoglobin (Bld) [Mass/Vol] 6.3 g/dL Low 13.0-17.0 [facility] Comment on above: Order Comment: No: D o not add to previous draw Performed By: #### 5 6101, 63516, 92212, 67168, 47150, 78503, 06548 #### [facility] [address] [facility] [place] PLATELET COUNTon 11-01-2019 Platelets (Bld) [#/Vol] 102 10*3/uL Low 150-400 [facility] Comment on above: Order Comment: No: D o not add to previous draw Performed By: #### 5 6101, 92378, 17287, 81203, 65948, 17971, 59937 #### [facility] [address] [facility] [place] RBC'S 2 UNITSon 11-01-2019 CROSSMATCH INTERP 1 COMP Normal [facility] Comment on above: Order Comment: Hemog lobin < 7gm/dl Performed By: #### 5 6101, 34810, 56144, 72675, 28306, 98852, 64621 #### [facility] [address] [facility] [place] [address] CROSSMATCH INTERP 2 COMP Normal [facility] Comment on above: Order Comment: Hemog lobin < 7gm/dl Performed By: #### 5 6101, 79403, 18666, 61656, 42283, 09481, 44426 #### [facility] [address] [facility] [place] [address], [facility] PRODUCT CODE 1 E0336 Normal [facility] Comment on above: Order Comment: Hemog lobin < 7gm/dl Performed By: #### 5 6101, 29817, 36458, 43075, 17609, 89871, 48418 #### [facility] [address] [place] [address], [facility] PRODUCT CODE 2 E0685 Normal [facility] Comment on above: Order Comment: Hemog lobin < 7gm/dl Performed By: #### 5 6101, 67250, 59020, 08716, 64237, 05547, 10018 #### [facility] [address] [place] [id number], [facility] PRODUCT STATUS 1 PT Normal The [facility] Comment on above: Order Comment: Hemog lobin < 7gm/dl Result Comment: Resu lt changed by IF on 11/01/2019 11:43. The previous value was XM. Result changed by IF on 11/02/2019 00:30. The previous value was IS. Performed By: #### 5 6101, 34126, 70811, 26431, 63403, 60055, 44277 #### [facility] [address] PRODUCT STATUS 2 PT Normal The [facility] Comment on above: Order Comment: Hemog lobin < 7gm/dl Result Comment: Resu lt changed by IF on 11/01/2019 09:35. The previous value was XM. Result changed by IF on 11/02/2019 00:30. The previous value was IS. Performed By: #### 5 6101, 84857, 29425, 94016, 05291, 63525, 61335 #### [facility] [address] [place] [address], [facility] UNIT ABO 1 O Normal [facility] Comment on above: Order Comment: Hemog lobin < 7gm/dl Performed By: #### 5 6101, 65969, 68576, 32966, 13570, 19860, 33564 #### [facility] [address] [place] [address], [facility] UNIT ABO 2 O Normal [facility] Comment on above: Order Comment: Hemog lobin < 7gm/dl Performed By: #### 5 6101, 95699, 47634, 38071, 83562, 02254, 06321 #### [facility] [address] UNIT ID 1 [id number] Normal [facility] Comment on above: Order Comment: Hemog lobin < 7gm/dl Performed By: #### 5 6101, 37580, 07335, 18846, 13485, 76262, 80269 #### [facility] [address] UNIT ID 2 [id number] Normal [facility] Comment on above: Order Comment: Hemog lobin < 7gm/dl Performed By: #### 5 6101, 33513, 79904, 87923, 89554, 37700, 15658 #### [facility] [address] UNIT RH 1 Positive Normal [facility] Comment on above: Order Comment: Hemog lobin < 7gm/dl Performed By: #### 5 6101, 71988, 30234, 22996, 00286, 18133, 24195 #### [facility] [address] UNIT RH 2 Positive Normal [facility] Comment on above: Order Comment: Hemog lobin < 7gm/dl Performed By: #### 5 6101, 40132, 05436, 19204, 49136, 14726, 74925 #### [facility] [address] [place] [address], [facility] TYPE AND SCREENon 11-01-2019 ABO INTERPRETATION O Normal The [facility] Comment on above: Performed By: #### 5 6101, 38997, 45372, 41954, 65050, 97429, 89400 #### [facility] [address] [place] [address], [facility] RH INTERPRETATION Positive Normal [facility] Comment on above: Performed By: #### 5 6101, 79332, 63370, 30193, 73751, 30081, 96009 #### [facility] [address] [place] [address], [facility] UFH HEPARIN ASSAYon 11-01-20 19 UNFRACTIONATED HEPARIN 0.91 IU/mL Critically high 0.30-0.70 [facility] Comment on above: Result Comment: Jo Ann roxaban and Apixaban will interfere with the anti Xa assay used to monitor UFH and LMWH. RESULTS CHECKED AND CALLED. ACCURATELY READ BACK BY STACY ZENG RN AT 0622 Performed By: #### 5 6101, 60629, 38962, 45612, 33868, 99520, 24526 #### [facility] [address] BASIC METABOLIC PANELon 12-0 Calcium [Mass/Vol] 7.4 mg/dL Low 8.6-10.3 [facility] Comment on above: Order Comment: No: D o not add to previous draw Performed By: #### 5 6101, 75020, 88617, 70632, 18042, 05515, 45640 #### [facility] [address] [place] [address], [facility] Chloride [Moles/Vol] 98 mmol/L Normal 98-107 [facility] Comment on above: Order Comment: No: D o not add to previous draw Performed By: #### 5 6101, 61548, 66266, 72403, 66997, 26143, 93180 #### [facility] [address] [place] [address], [facility] CO2 [Moles/Vol] 31 mmol/L Normal 21-31 [facility] Comment on above: Order Comment: No: D o not add to previous draw Performed By: #### 5 6101, 26180, 11151, 71057, 67321, 05288, 41467 #### [facility] [address] [place] [address], [place] Creatinine [Mass/Vol] 0.55 mg/dL Low 0.70-1.30 [facility] Comment on above: Order Comment: No: D o not add to previous draw Performed By: #### 5 6101, 62574, 94078, 01753, 19616, 21065, 22526 #### [facility] [address] [place] [address], [place] GFR/1.73 sq M predicted among blacks MDRD (S/P/Bld) [Vol rate/Area] mL/min/{1.73_m2} Normal >60 [facility] Comment on above: Order Comment: No: D o not add to previous draw Performed By: #### 5 6101, 52823, 63607, 69912, 61585, 17178, 03971 #### [facility] [address] [place] [address], [place] GFR/1.73 sq M predicted among non-blacks MDRD (S/P/Bld) [Vol rate/Area] mL/min/{1.73_m2} Normal >60 [facility] Comment on above: Order Comment: No: D o not add to previous draw Performed By: #### 5 6101, 04790, 04597, 64937, 26233, 15734, 74116 #### [facility] [address] [place] [address], [place] Glucose [Mass/Vol] 94 mg/dL Normal 70-100 [facility] Comment on above: Order Comment: No: D o not add to previous draw Performed By: #### 5 6101, 80721, 21644, 61983, 66238, 49593, 03637 #### [facility] [address] [place] [address], [place] Potassium [Moles/Vol] 3.1 mmol/L Low 3.5-5.1 [facility] Comment on above: Order Comment: No: D o not add to previous draw Performed By: #### 5 6101, 20115, 35961, 04688, 00708, 10126, 20201 #### [facility] [address] [place] [address], [facility] Sodium [Moles/Vol] 133 mmol/L Low 136-145 [facility] Comment on above: Order Comment: No: D o not add to previous draw Performed By: #### 5 6101, 66433, 49016, 64570, 89470, 73097, 77469 #### [facility] [address] Urea nitrogen [Mass/Vol] 9 mg/dL Normal 7-25 [facility] Comment on above: Order Comment: No: D o not add to previous draw Performed By: #### 5 6101, 53351, 49766, 68354, 86963, 32466, 63023 #### [facility] [address] CBC COMPLETE BLOOD COUNTon 1 01-01-2019 Erythrocyte distribution width (RBC) [Ratio] 14.4 % Normal 11.5-15.0 [facility] Comment on above: Order Comment: No: D o not add to previous draw Performed By: #### 5 6101, 87857, 30687, 45891, 85311, 64613, 56414 #### [facility] [address] [place] [address], [facility] Hematocrit (Bld) [Volume fraction] 27.3 % Low 39.0-50.0 [facility] Comment on above: Order Comment: No: D o not add to previous draw Performed By: #### 5 6101, 24181, 79471, 11905, 71006, 10047, 86668 #### [facility] [address] Hemoglobin (Bld) [Mass/Vol] 9.5 g/dL Low 13.0-17.0 [facility] Comment on above: Order Comment: No: D o not add to previous draw Performed By: #### 5 6101, 95396, 13786, 63041, 14688, 42607, 81018 #### [facility] [address] [place] [address], [facility] IMM PLATELET FRAC 10.7 % High 0.8-6.3 [facility] Comment on above: Order Comment: No: D o not add to previous draw Performed By: #### 5 6101, 61947, 54723, 34096, 26901, 87022, 13012 #### [facility] [address] [place] [address], [facility] MCH (RBC) [Entitic mass] 30.9 pg Normal 27.0-33.0 [facility] Comment on above: Order Comment: No: D o not add to previous draw Performed By: #### 5 6101, 71487, 35818, 85209, 33621, 06129, 99194 #### [facility] [address] MCHC (RBC) [Mass/Vol] 34.8 g/dL Normal 32.0-35.0 [facility] Comment on above: Order Comment: No: D o not add to previous draw Performed By: #### 5 6101, 98219, 53709, 99832, 65412, 75142, 94124 #### [facility] [address] [place] [address], [facility] MCV (RBC) [Entitic vol] 88.9 fL Normal 82.0-98.0 [facility] Comment on above: Order Comment: No: D o not add to previous draw Performed By: #### 5 6101, 61250, 97622, 36419, 62727, 70446, 44900 #### [facility] [address] [place] [address], [facility] Nucleated RBC/100 WBC (Bld) [Ratio] 0 % Normal 0-0 [facility] Comment on above: Order Comment: No: D o not add to previous draw Performed By: #### 5 6101, 14652, 28341, 22116, 71349, 66190, 15255 #### [facility] [address] [facility] [place] [address], [facility] PLAT CNT 82 10*3/uL Low 150-400 [facility] Comment on above: Order Comment: No: D o not add to previous draw Result Comment: P = 77 Performed By: #### 5 6101, 17352, 98936, 94106, 76758, 09060, 27923 #### [facility] [address] [facility] [address], [facility] RBC (Bld) [#/Vol] 3.07 10*6/uL Low 4.20-5.70 [facility] Comment on above: Order Comment: No: D o not add to previous draw Performed By: #### 5 6101, 96034, 08372, 87442, 99221, 11970, 90478 #### [facility] [address] [place] [address], [facility] WBC (Bld) [#/Vol] 13.09 10*3/uL High 4.00-10.60 [facility] Comment on above: Order Comment: No: D o not add to previous draw Performed By: #### 5 6101, 64422, 03333, 06465, 89589, 29974, 04654 #### [facility] [address] [facility] [place] [address], [facility] MAGNESIUM BLOODon 10-31-2019 Magnesium [Mass/Vol] 1.9 mg/dL Normal 1.9-2.7 [facility] Comment on above: Order Comment: No: D o not add to previous draw Performed By: #### 5 6101, 51565, 24093, 66650, 06440, 64852, 60183 #### [facility] [address] UFH HEPARIN ASSAYon 10-31-20 19 UNFRACTIONATED HEPARIN 0.52 IU/mL Normal 0.30-0.70 [facility] Comment on above: Result Comment: Jo Ann roxaban and Apixaban will interfere with the anti Xa assay used to monitor UFH and LMWH. Performed By: #### 5 6101, 85974, 40798, 12069, 19167, 33868, 20643 #### [facility] [address] BASIC METABOLIC PANELon Calcium [Mass/Vol] 7.4 mg/dL Low 8.6-10.3 [facility] Comment on above: Order Comment: No: D o not add to previous draw Performed By: #### 5 6101, 16904, 49774, 63332, 63847, 60160, 50179 #### [facility] [address] [place] [address], [facility] Chloride [Moles/Vol] 97 mmol/L Low 98-107 [facility] Comment on above: Order Comment: No: D o not add to previous draw Performed By: #### 5 6101, 32291, 66503, 82164, 48784, 09120, 46765 #### [facility] [address] [place] [address], [facility] CO2 [Moles/Vol] 31 mmol/L Normal 21-31 [facility] Comment on above: Order Comment: No: D o not add to previous draw Performed By: #### 5 6101, 57610, 39892, 09301, 54042, 94866, 00852 #### [facility] [address] [place] [address], [facility] Creatinine [Mass/Vol] 0.55 mg/dL Low 0.70-1.30 [facility] Comment on above: Order Comment: No: D o not add to previous draw Performed By: #### 5 6101, 47802, 60365, 67621, 75083, 17159, 41868 #### [facility] [address] [place] [address], [facility] GFR/1.73 sq M predicted among blacks MDRD (S/P/Bld) [Vol rate/Area] mL/min/{1.73_m2} Normal >60 [facility] Comment on above: Order Comment: No: D o not add to previous draw Performed By: #### 5 6101, 34902, 66716, 77212, 96074, 76631, 63937 #### [facility] [address] [place] [address], [facility] GFR/1.73 sq M predicted among non-blacks MDRD (S/P/Bld) [Vol rate/Area] mL/min/{1.73_m2} Normal >60 [facility] Comment on above: Order Comment: No: D o not add to previous draw Performed By: #### 5 6101, 30395, 43696, 48663, 06594, 12234, 15000 #### [facility] [address] [place] [address], [place] Glucose [Mass/Vol] 111 mg/dL High 70-100 [facility] Comment on above: Order Comment: No: D o not add to previous draw Performed By: #### 5 6101, 26797, 21395, 10215, 77128, 83943, 04049 #### [facility] [address] [place] [address], [place] Potassium [Moles/Vol] 3.4 mmol/L Low 3.5-5.1 [facility] Comment on above: Order Comment: No: D o not add to previous draw Performed By: #### 5 6101, 71385, 93131, 36281, 55499, 36116, 10080 #### [facility] [address] [place] [address], [facility] Sodium [Moles/Vol] 134 mmol/L Low 136-145 [facility] Comment on above: Order Comment: No: D o not add to previous draw Performed By: #### 5 6101, 38481, 88421, 54560, 68974, 21801, 45991 #### [facility] [address] [place] [address], [facility] Urea nitrogen [Mass/Vol] 10 mg/dL Normal 7-25 [facility] Comment on above: Order Comment: No: D o not add to previous draw Performed By: #### 5 6101, 47774, 75550, 09471, 44968, 09748, 47800 #### [facility] [address] CBC COMPLETE BLOOD COUNTon 12-31-2018 Erythrocyte distribution width (RBC) [Ratio] 14.1 % Normal 11.5-15.0 [facility] Comment on above: Order Comment: No: D o not add to previous draw Performed By: #### 5 6101, 99107, 88869, 55294, 59754, 00104, 68945 #### [facility] [address] [place] [address], [facility] Hematocrit (Bld) [Volume fraction] 32.9 % Low 39.0-50.0 [facility] Comment on above: Order Comment: No: D o not add to previous draw Performed By: #### 5 6101, 73588, 96461, 95684, 14895, 67023, 51272 #### [facility] [address] [place] [address], [facility] Hemoglobin (Bld) [Mass/Vol] 11.3 g/dL Low 13.0-17.0 [facility] Comment on above: Order Comment: No: D o not add to previous draw Performed By: #### 5 6101, 14417, 48090, 05419, 77098, 37010, 85215 #### [facility] [address] [place] [address], [facility] IMM PLATELET FRAC 6.4 % High 0.8-6.3 [facility] Comment on above: Order Comment: No: D o not add to previous draw Performed By: #### 5 6101, 85623, 19599, 62619, 32602, 48582, 30800 #### [facility] [address] [facility] [place] [address], [facility] MCH (RBC) [Entitic mass] 30.9 pg Normal 27.0-33.0 [facility] Comment on above: Order Comment: No: D o not add to previous draw Performed By: #### 5 6101, 60385, 24969, 94483, 07685, 57916, 61724 #### [facility] [address] [address] MCHC (RBC) [Mass/Vol] 34.3 g/dL Normal 32.0-35.0 [facility] Comment on above: Order Comment: No: D o not add to previous draw Performed By: #### 5 6101, 00481, 65603, 17927, 80339, 32998, 39199 #### [facility] [address] [facility] [place] [address], [facility] MCV (RBC) [Entitic vol] 89.9 fL Normal 82.0-98.0 [facility] Comment on above: Order Comment: No: D o not add to previous draw Performed By: #### 5 6101, 06999, 12671, 95853, 41722, 70216, 60366 #### [facility] [address] [facility]. [address] Nucleated RBC/100 WBC (Bld) [Ratio] 0 % Normal 0-0 [facility] Comment on above: Order Comment: No: D o not add to previous draw Performed By: #### 5 6101, 83057, 63125, 20887, 71103, 51668, 11839 #### [facility] [address] [place] [address], [facility] PLAT CNT 77 10*3/uL Low 150-400 [facility] Comment on above: Order Comment: No: D o not add to previous draw Performed By: #### 5 6101, 24828, 50837, 11655, 86013, 79569, 92264 #### [facility] [address] [place] [address], [facility] RBC (Bld) [#/Vol] 3.66 10*6/uL Low 4.20-5.70 The [facility] Comment on above: Order Comment: No: D o not add to previous draw Performed By: #### 5 6101, 20566, 50772, 73184, 08408, 02622, 68305 #### [facility] [address] [place] [address], [facility] WBC (Bld) [#/Vol] 11.15 10*3/uL High 4.00-10.60 [facility] Comment on above: Order Comment: No: D o not add to previous draw Performed By: #### 5 6101, 74083, 95537, 47040, 42876, 21042, 91729 #### [facility] [address] [place] [address], [facility] LACTATE BLOODon 10-30-2019 Lactate [Moles/Vol] 0.7 mmol/L Normal 0.5-2.2 The [facility] Comment on above: Order Comment: No: D o not add to previous draw Performed By: #### 5 6101, 27872, 38778, 05046, 70491, 42421, 81135 #### [facility] [address] [place] [address], [facility] LIVER BATTERYon 10-30-2019 Albumin [Mass/Vol] 2.1 g/dL Low 3.5-5.7 The [facility] Comment on above: Order Comment: No: D o not add to previous draw Performed By: #### 5 6101, 69392, 50280, 94632, 30507, 19621, 30759 #### [facility] [address] [place] [address], [facility] ALKALINE PHOSPH 113 IU/L High 34-104 The [facility] Comment on above: Order Comment: No: D o not add to previous draw Performed By: #### 5 6101, 38719, 74799, 62894, 71141, 61635, 32175 #### [facility] [address] [place] [address], [facility] ALT [Catalytic activity/Vol] 28 U/L Normal 7-52 [facility] Comment on above: Order Comment: No: D o not add to previous draw Performed By: #### 5 6101, 20228, 92973, 99251, 22118, 92333, 19053 #### [facility] [address] [place] [address], [place] AST [Catalytic activity/Vol] 19 U/L Normal 13-39 [facility] Comment on above: Order Comment: No: D o not add to previous draw Performed By: #### 5 6101, 50047, 08141, 73960, 14626, 47616, 82191 #### [facility] [address] [place] [address], [place] Bilirubin [Mass/Vol] 2.8 mg/dL High 0.3-1.0 [facility] Comment on above: Order Comment: No: D o not add to previous draw Performed By: #### 5 6101, 66412, 59495, 17554, 62934, 06905, 43613 #### [facility] [address] [place] [address], [place] Bilirubin.direct [Mass/Vol] 1.9 mg/dL High 0.0-0.2 [facility] Comment on above: Order Comment: No: D o not add to previous draw Performed By: #### 5 6101, 75556, 59253, 47949, 11642, 46761, 64819 #### [facility] [address] [place] [address], [facility] Protein [Mass/Vol] 4.7 g/dL Low 6.0-8.3 The [facility] Comment on above: Order Comment: No: D o not add to previous draw Performed By: #### 5 6101, 84469, 32156, 48876, 06435, 97843, 49994 #### [facility] [address] [place] [address], [facility] MAGNESIUM BLOODon 10-30-2019 Magnesium [Mass/Vol] 2.0 mg/dL Normal 1.9-2.7 [facility] Comment on above: Order Comment: No: D o not add to previous draw Performed By: #### 5 6101, 49430, 16675, 92565, 38471, 34603, 89443 #### [facility] [address] [place] [address], [facility] PHOSPHORUS BLOODon 9 Phosphate [Mass/Vol] 3.3 mg/dL Normal 2.5-5.0 [facility] Comment on above: Order Comment: No: D o not add to previous draw Performed By: #### 5 6101, 99481, 72017, 62716, 29043, 27313, 84763 #### [facility] [address] [place] [address], [facility] UFH HEPARIN ASSAYon 10-30-20 19 UNFRACTIONATED HEPARIN 0.43 IU/mL Normal 0.30-0.70 [facility] Comment on above: Result Comment: [place] roxaban and Apixaban will interfere with the anti Xa assay used to monitor UFH and LMWH. Performed By: #### 5 6101, 77570, 89722, 85200, 55584, 07350, 21115 #### [facility] [address] BASIC METABOLIC PANELon 11-3 Calcium [Mass/Vol] 7.3 mg/dL Low 8.6-10.3 [facility] Comment on above: Order Comment: No: D o not add to previous draw Performed By: #### 5 6101, 16370, 38141, 27042, 77714, 96283, 06908 #### [facility] [address] [place] [address], [facility] Chloride [Moles/Vol] 95 mmol/L Low 98-107 [facility] Comment on above: Order Comment: No: D o not add to previous draw Performed By: #### 5 6101, 43463, 18761, 07753, 56679, 51596, 60636 #### [facility] [address] [place] [address], [facility] CO2 [Moles/Vol] 33 mmol/L High 21-31 [facility] Comment on above: Order Comment: No: D o not add to previous draw Performed By: #### 5 6101, 97345, 60642, 84235, 28999, 65111, 73005 #### [facility] [address] [place] [address], [facility] Creatinine [Mass/Vol] 0.63 mg/dL Low 0.70-1.30 [facility] Comment on above: Order Comment: No: D o not add to previous draw Performed By: #### 5 6101, 49306, 42485, 09810, 54469, 97230, 22104 #### [facility] [address] [place] [address], [facility] GFR/1.73 sq M predicted among blacks MDRD (S/P/Bld) [Vol rate/Area] mL/min/{1.73_m2} Normal >60 [facility] Comment on above: Order Comment: No: D o not add to previous draw Performed By: #### 5 6101, 21343, 49823, 55567, 87099, 32272, 23386 #### [facility] [address] [place] [address], [facility] GFR/1.73 sq M predicted among non-blacks MDRD (S/P/Bld) [Vol rate/Area] mL/min/{1.73_m2} Normal >60 [facility] Comment on above: Order Comment: No: D o not add to previous draw Performed By: #### 5 6101, 30416, 12070, 58312, 32771, 06757, 50347 #### [facility] [address] [place] [address], [place] Glucose [Mass/Vol] 134 mg/dL High 70-100 The [facility] Comment on above: Order Comment: No: D o not add to previous draw Performed By: #### 5 6101, 87888, 92733, 96419, 37406, 01530, 82960 #### [facility] [address] [place] [address], [facility] Potassium [Moles/Vol] 3.8 mmol/L Normal 3.5-5.1 [facility] Comment on above: Order Comment: No: D o not add to previous draw Performed By: #### 5 6101, 51296, 57503, 34832, 05573, 36260, 07542 #### [facility] [address] [place] [address], [place] Sodium [Moles/Vol] 132 mmol/L Low 136-145 The [facility] Comment on above: Order Comment: No: D o not add to previous draw Performed By: #### 5 6101, 87955, 77220, 33408, 69049, 59921, 13663 #### [facility] [address] [place] [address], [place] Urea nitrogen [Mass/Vol] 10 mg/dL Normal 7-25 [facility] Comment on above: Order Comment: No: D o not add to previous draw Performed By: #### 5 6101, 39507, 85985, 45320, 70924, 50385, 84743 #### [facility] [address] [facility] [place] [address], [facility] CBC W/DIFFon 10-29-2019 ABS BASOPHILS 0.1 10*3/uL Normal 0.0-0.2 The [facility] Comment on above: Order Comment: No: D o not add to previous draw Performed By: #### 8 4511 #### [facility] [address] [facility] [place] [address], [facility] ABS IMM GRANS 0.2 10*3/uL Normal 0.0-0.2 The [facility] Comment on above: Order Comment: No: D o not add to previous draw Performed By: #### 8 4511 #### [facility] [address] [facility] [place] [address], [facility] ABS NEUTROPHILS 12.1 10*3/uL High 1.6-7.6 The [facility] Comment on above: Order Comment: No: D o not add to previous draw Performed By: #### 8 4511 #### [facility] [address] [facility] [place] [address], [facility] Basophils/100 WBC (Bld) 0.4 % Normal 0.0-1.0 [facility] Comment on above: Order Comment: No: D o not add to previous draw Performed By: #### 8 4511 #### [facility] [address] [facility] [place] [address], [facility] MAXINE CELLS Moderate Normal [facility] Comment on above: Order Comment: No: D o not add to previous draw Performed By: #### 8 4511 #### [facility] [address] [place] [address], [facility] Eosinophils (Bld) [#/Vol] 0.0 10*3/uL Normal 0.0-0.5 [facility] Comment on above: Order Comment: No: D o not add to previous draw Performed By: #### 8 4511 #### [facility] [address] [place] [address], [facility] Eosinophils/100 WBC (Bld) 0.0 % Normal 0.0-6.0 [facility] Comment on above: Order Comment: No: D o not add to previous draw Performed By: #### 8 4511 #### [facility] [address] [place] [address], [facility] Erythrocyte distribution width (RBC) [Ratio] 14.2 % Normal 11.5-15.0 [facility] Comment on above: Order Comment: No: D o not add to previous draw Performed By: #### 8 4511 #### [facility] [address] [place] [address], [facility] Hematocrit (Bld) [Volume fraction] 34.8 % Low 39.0-50.0 [facility] Comment on above: Order Comment: No: D o not add to previous draw Performed By: #### 8 4511 #### [facility] [address] [place] [address], [facility] Hemoglobin (Bld) [Mass/Vol] 12.3 g/dL Low 13.0-17.0 [facility] Comment on above: Order Comment: No: D o not add to previous draw Performed By: #### 8 4511 #### [facility] [address] [place] [address], [place] IMM PLATELET FRAC 7.9 % High 0.8-6.3 [facility] Comment on above: Order Comment: No: D o not add to previous draw Performed By: #### 8 4511 #### [facility] [address] [place] [address], [place] IMMATURE GRANS 1.1 % High 0.0-1.[address] [facility] Comment on above: Order Comment: No: D o not add to previous draw Performed By: #### 8 4511 #### [facility] [address] [place] [address], [facility] Lymphocytes (Bld) [#/Vol] 0.7 10*3/uL Low 1.2-4.0 [facility] Comment on above: Order Comment: No: D o not add to previous draw Performed By: #### 8 4511 #### [facility] [address] [place] [address], [facility] Lymphocytes/100 WBC (Bld) 5.2 % Low 20.0-45.0 [facility] Comment on above: Order Comment: No: D o not add to previous draw Performed By: #### 8 4511 #### [facility] [address] [place] [address], [facility] MCH (RBC) [Entitic mass] 31.2 pg Normal 27.0-33.0 [facility] Comment on above: Order Comment: No: D o not add to previous draw Performed By: #### 8 4511 #### [facility] [address] [facility] [place] [address], [facility] MCHC (RBC) [Mass/Vol] 35.3 g/dL High 32.0-35.0 [facility] Comment on above: Order Comment: No: D o not add to previous draw Performed By: #### 8 4511 #### [facility] [address] [facility] [place] [address], [facility] MCV (RBC) [Entitic vol] 88.3 fL Normal 82.0-98.0 [facility] Comment on above: Order Comment: No: D o not add to previous draw Performed By: #### 8 4511 #### [facility] [address] [place] [address], [facility] Monocytes (Bld) [#/Vol] 0.5 10*3/uL Normal 0.1-1.0 [facility] Comment on above: Order Comment: No: D o not add to previous draw Performed By: #### 8 4511 #### [facility] [address] [place] [address], [facility] MONOS 3.4 % Low 5.0-12.0 [facility] Comment on above: Order Comment: No: D o not add to previous draw Performed By: #### 8 4511 #### [facility] [address] [place] [address], [facility] Neutrophils (Bld) [#/Vol] Slight Normal [facility] Comment on above: Order Comment: No: D o not add to previous draw Performed By: #### 8 4511 #### [facility] [address] [place] [address], [facility] Neutrophils/100 WBC (Bld) 89.9 % High 40.0-72.0 [facility] Comment on above: Order Comment: No: D o not add to previous draw Performed By: #### 8 4511 #### [facility] [address] [place] [address], [facility] Nucleated RBC/100 WBC (Bld) [Ratio] 0 % Normal 0-0 [facility] Comment on above: Order Comment: No: D o not add to previous draw Performed By: #### 8 4511 #### [facility] [address] [place] [address], [facility] OTHER 2 Checked by Jennifer Cabrera M.D. Normal [facility] Comment on above: Order Comment: No: D o not add to previous draw Result Comment: Resu lt changed by LIOR on 10/31/2019 14:05. The previous value was Preliminary report; verified report to follow. Performed By: #### 8 4511 #### [facility] [address] [place] [address], [place] PLAT CNT 76 10*3/uL Low 150-400 [facility] Comment on above: Order Comment: No: D o not add to previous draw Performed By: #### 8 4511 #### [facility] [address] [place] [address], [facility] POIK Moderate Normal [facility] Comment on above: Order Comment: No: D o not add to previous draw Performed By: #### 8 4511 #### [facility] [address] [place] [address], [place] RBC (Bld) [#/Vol] 3.94 10*6/uL Low 4.20-5.70 The [facility] Comment on above: Order Comment: No: D o not add to previous draw Performed By: #### 8 4511 #### [facility] [address] [place] [address], [facility] TARGET CELLS Slight Normal The [facility] Comment on above: Order Comment: No: D o not add to previous draw Performed By: #### 8 4511 #### [facility] [address] [place] [address], [place] TOXIC GRANULATION Marked Normal The [facility] Comment on above: Order Comment: No: D o not add to previous draw Performed By: #### 8 4511 #### [facility] [address] [place] [address], [facility] WBC (Bld) [#/Vol] 13.45 10*3/uL High 4.00-10.60 [facility] Comment on above: Order Comment: No: D o not add to previous draw Performed By: #### 8 4511 #### [facility] [address] [place] [address], [facility] LACTATE BLOODon 10-29-2019 Lactate [Moles/Vol] 1.3 mmol/L Normal 0.5-2.2 The [facility] Comment on above: Order Comment: No: D o not add to previous draw Performed By: #### 5 6101, 27718, 48777, 20692, 50438, 61187, 30035 #### [facility] [address] [place] [address], [facility] LIVER BATTERYon 10-29-2019 Albumin [Mass/Vol] 2.1 g/dL Low 3.5-5.7 [facility] Comment on above: Order Comment: No: D o not add to previous draw Performed By: #### 5 6101, 08983, 07715, 51523, 43433, 91060, 88949 #### [facility] [address] [place] [address], [facility] ALKALINE PHOSPH 133 IU/L High 34-104 [facility] Comment on above: Order Comment: No: D o not add to previous draw Performed By: #### 5 6101, 43651, 26782, 00582, 21170, 09167, 48201 #### [facility] [address] [place] [address], [facility] ALT [Catalytic activity/Vol] 34 U/L Normal 7-52 [facility] Comment on above: Order Comment: No: D o not add to previous draw Performed By: #### 5 6101, 67304, 26929, 32842, 55977, 92508, 68849 #### [facility] [address] [place] [address], [facility] AST [Catalytic activity/Vol] 23 U/L Normal 13-39 [facility] Comment on above: Order Comment: No: D o not add to previous draw Performed By: #### 5 6101, 14740, 09892, 13799, 24498, 40719, 10257 #### [facility] [address] [place] [id number], [facility] Bilirubin [Mass/Vol] 3.0 mg/dL High 0.3-1.0 [facility] Comment on above: Order Comment: No: D o not add to previous draw Performed By: #### 5 6101, 48186, 40827, 82782, 88628, 09044, 97006 #### [facility] [address] [place] [address], [facility] Bilirubin.direct [Mass/Vol] 2.2 mg/dL High 0.0-0.2 [facility] Comment on above: Order Comment: No: D o not add to previous draw Performed By: #### 5 6101, 19776, 96276, 78927, 04408, 48880, 52736 #### [facility] [address] [place] [address], [facility] Protein [Mass/Vol] 4.7 g/dL Low 6.0-8.3 The [facility] Comment on above: Order Comment: No: D o not add to previous draw Performed By: #### 5 6101, 71618, 15743, 61855, 27830, 19197, 47800 #### [facility] [address] MAGNESIUM BLOODon 10-29-2019 Magnesium [Mass/Vol] 1.9 mg/dL Normal 1.9-2.7 [facility] Comment on above: Order Comment: No: D o not add to previous draw Performed By: #### 8 4511 #### [facility] [address] [place] [address], [facility] PHOSPHORUS BLOODon 9 Phosphate [Mass/Vol] 3.5 mg/dL Normal 2.5-5.0 [facility] Comment on above: Order Comment: No: D o not add to previous draw Performed By: #### 5 6101, 10489, 66929, 97205, 12956, 41129, 63837 #### [facility] [address] [place] [address], [facility] UFH HEPARIN ASSAYon 10-29-20 19 UNFRACTIONATED HEPARIN 0.31 IU/mL Normal 0.30-0.70 [facility] Comment on above: Result Comment: [place] roxaban and Apixaban will interfere with the anti Xa assay used to monitor UFH and LMWH. Performed By: #### 5 6101, 79667, 02486, 95334, 09299, 17838, 58887 #### [facility] [address] UNFRACTIONATED HEPARIN <0.10 Critically low 0.30-0.70 [facility] Comment on above: Result Comment: [place] roxaban and Apixaban will interfere with the anti Xa assay used to monitor UFH and LMWH. RESULTS CHECKED AND CALLED. ACCURATELY READ BACK BY MATTHEW HERNANDEZ RN AT 13:10 Performed By: #### 5 6101, 97349, 23221, 17275, 07717, 38679, 13773 #### [facility] [address] [facility]. [address] UNFRACTIONATED HEPARIN <0.10 Critically low 0.30-0.70 [facility] Comment on above: Result Comment: [place] roxaban and Apixaban will interfere with the anti Xa assay used to monitor UFH and LMWH. RESULTS CHECKED AND CALLED. ACCURATELY READ BACK BY BRANDON VNA RN AT 0532. Performed By: #### 5 6101, 00335, 14825, 68337, 07502, 67307, 90218 #### [facility] [address] *BLOOD CULTUREon 10-28-2019 Bacteria identified Cx Nom (Bld) Clinical Report: (D) Specimen: BLOOD CULTURE Collected: 10/28/2019 11:05 Status: Final Last Updated: 11/02/2019 14:57 CULT RES (Final) No Growth Day 5 Normal [facility] Comment on above: Performed By: #### 5 6101, 37036, 76928, 49991, 47085, 54756, 55053 #### [facility] [address] [facility]. [address] ANTITHROMBIN III ACTIVITYon 10-28-2019 AT 3 ACTIVITY 69 % Low 70-120 The [facility] Comment on above: Performed By: #### 5 6101, 32200, 83262, 76865, 50221, 61569, 81240 #### [facility] [address] [place], [place] [id number] [place] [address] APC RESISTANCE ASSAYon 10-28 APC RESISTANCE 2.4 RATIO Normal 2.0-4.9 The [facility] Comment on above: Performed By: #### 5 6101, 81182, 07771, 92114, 29830, 27004, 01698 #### [facility] [address] APTTon 10-28-2019 aPTT Coag (Bld) [Time] 33.7 s Normal 25.0-35.0 [facility] Comment on above: Order Comment: No: [...] THIS PURPOSE. Performed By: #### 5 6101, 25393, 54058, 59078, 82827, 78616, 36059 #### [facility] [address] ARTERIAL BLOOD GAS WITH ICAo n 10-28-2019 BASE EXCESS 7 mmol/L High -2-3 The [facility] Comment on above: Performed By: #### 8 4511 #### [facility] [address] [place] [address], [facility] DELIVERY SYSTEMS RA Normal The [facility] Comment on above: Performed By: #### 8 4511 #### [facility] [address] [place] [address], [facility] HCO3 (Bld) [Moles/Vol] 31 mmol/L Critically high 21-28 [facility] Comment on above: Performed By: #### 8 4511 #### [facility] [address] [place] [address], [place] IONIZED CALCIUM 1.09 mmol/L Low 1.13-1.32 [facility] Comment on above: Performed By: #### 8 4511 #### [facility] [address] [place] [address], [place] MODALITY RA Normal [facility] Comment on above: Performed By: #### 8 4511 #### [facility] [address] [place] [address], [place] Oxygen (Bld) [Partial pressure] 66 mm[Hg] Low 83-108 The [facility] Comment on above: Performed By: #### 8 4511 #### [facility] [address] [place] [address], [place] Oxygen saturation in Blood 91.4 % Low 94.0-97.0 [facility] Comment on above: Performed By: #### 8 4511 #### [facility] [address] [place] [address], [place] PCO2 40 mmHg Normal 35-45 [facility] Comment on above: Performed By: #### 8 4511 #### [facility] [address] [place] [address], [place] pH (Bld) 7.49 [pH] High 7.35-7.45 [facility] Comment on above: Performed By: #### 8 4511 #### [facility] [address] [place] [address], [place] BASIC METABOLIC PANELon 11-2 Calcium [Mass/Vol] 7.8 mg/dL Low 8.6-10.3 [facility] Comment on above: Order Comment: No: D o not add to previous draw Performed By: #### 8 4511 #### [facility] [address] [place] [address], [place] Chloride [Moles/Vol] 91 mmol/L Low 98-107 [facility] Comment on above: Order Comment: No: D o not add to previous draw Performed By: #### 8 4511 #### [facility] [address] [place] [address], [place] CO2 [Moles/Vol] 28 mmol/L Normal 21-31 The [facility] Comment on above: Order Comment: No: D o not add to previous draw Performed By: #### 8 4511 #### [facility] [address] [place] [address], [place] Creatinine [Mass/Vol] 0.50 mg/dL Low 0.70-1.30 [facility] Comment on above: Order Comment: No: D o not add to previous draw Performed By: #### 8 4511 #### [facility] [address] [place] [address], [place] GFR/1.73 sq M predicted among blacks MDRD (S/P/Bld) [Vol rate/Area] mL/min/{1.73_m2} Normal >60 [facility] Comment on above: Order Comment: No: D o not add to previous draw Performed By: #### 8 4511 #### [facility] [address] [place] [address], [place] GFR/1.73 sq M predicted among non-blacks MDRD (S/P/Bld) [Vol rate/Area] mL/min/{1.73_m2} Normal >60 [facility] Comment on above: Order Comment: No: D o not add to previous draw Performed By: #### 8 4511 #### [facility] [address] [place] [address], [place] Glucose [Mass/Vol] 137 mg/dL High 70-100 [facility] Comment on above: Order Comment: No: D o not add to previous draw Performed By: #### 8 4511 #### [facility] [address] Potassium [Moles/Vol] 3.8 mmol/L Normal 3.5-5.1 [facility] Comment on above: Order Comment: No: D o not add to previous draw Performed By: #### 8 4511 #### [facility] [address] [place] [address], [facility] Sodium [Moles/Vol] 125 mmol/L Low 136-145 The [facility] Comment on above: Order Comment: No: D o not add to previous draw Performed By: #### 8 4511 #### [facility] [address] [facility]. [address] Urea nitrogen [Mass/Vol] 9 mg/dL Normal 7-25 [facility] Comment on above: Order Comment: No: D o not add to previous draw Performed By: #### 8 4511 #### [facility] [address] [facility] [place] [address], [facility] CBC W/DIFFon 10-28-2019 ABS BASOPHILS 0.1 10*3/uL Normal 0.0-0.2 The [facility] Comment on above: Performed By: #### 5 0103 #### [facility] [address] [facility] [place] [address], [facility] ABS IMM GRANS 0.1 10*3/uL Normal 0.0-0.2 The [facility] Comment on above: Performed By: #### 5 0103 #### [facility] [address] [facility] [place] [address], [facility] ABS NEUTROPHILS 12.6 10*3/uL High 1.6-7.6 [facility] Comment on above: Performed By: #### 5 0103 #### [facility] [address] [place] [address], [facility] Basophils/100 WBC (Bld) 0.4 % Normal 0.0-1.0 [facility] Comment on above: Performed By: #### 5 0103 #### [facility] [address] [place] [address], [facility] Eosinophils (Bld) [#/Vol] 0.0 10*3/uL Normal 0.0-0.5 [facility] Comment on above: Performed By: #### 5 0103 #### [facility] [address] [facility] [place] [address], [facility] Eosinophils/100 WBC (Bld) 0.1 % Normal 0.0-6.0 [facility] Comment on above: Performed By: #### 5 0103 #### [facility] [address] [facility] [place] [address], [facility] Erythrocyte distribution width (RBC) [Ratio] 13.6 % Normal 11.5-15.0 [facility] Comment on above: Performed By: #### 5 0103 #### [facility] [address] [facility] [address] Hematocrit (Bld) [Volume fraction] 36.1 % Low 39.0-50.0 [facility] Comment on above: Performed By: #### 5 0103 #### [facility] [address] [facility] [place] [address], [facility] Hemoglobin (Bld) [Mass/Vol] 12.8 g/dL Low 13.0-17.0 [facility] Comment on above: Performed By: #### 5 0103 #### [facility] [address] [facility] [place] [address], [facility] IMM PLATELET FRAC 5.9 % Normal 0.8-6.3 [facility] Comment on above: Performed By: #### 5 0103 #### [facility] [address] [place] [address], [facility] IMMATURE GRANS 0.9 % Normal 0.0-1.0 The [facility] Comment on above: Performed By: #### 5 0103 #### [facility] [address] [facility] [place] [address], [facility] Lymphocytes (Bld) [#/Vol] 0.6 10*3/uL Low 1.2-4.0 [facility] Comment on above: Performed By: #### 3 #### [facility] [address] [facility] [place] [address], [facility] Lymphocytes/100 WBC (Bld) 4.5 % Low 20.0-45.0 [facility] Comment on above: Performed By: #### 102 #### [facility] [address] MCH (RBC) [Entitic mass] 31.0 pg Normal 27.0-33.0 [facility] Comment on above: Performed By: #### 102 #### [facility] [address] MCHC (RBC) [Mass/Vol] 35.5 g/dL High 32.0-35.0 [facility] Comment on above: Performed By: #### 102 #### [facility] [address] [place] [address], [facility] MCV (RBC) [Entitic vol] 87.4 fL Normal 82.0-98.0 [facility] Comment on above: Performed By: #### 5 3 #### [facility] [address] [facility] [place] [address], [facility] Monocytes (Bld) [#/Vol] 0.6 10*3/uL Normal 0.1-1.0 [facility] Comment on above: Performed By: #### 3 #### [facility] [address] [place] [address], [facility] MONOS 4.6 % Low 5.0-12.0 [facility] Comment on above: Performed By: #### 5 3 #### [facility] [address] [place] [address], [facility] Neutrophils/100 WBC (Bld) 89.5 % High 40.0-72.0 [facility] Comment on above: Performed By: #### 5 0103 #### [facility] [address] [place] [address], [facility] Nucleated RBC/100 WBC (Bld) [Ratio] 0 % Normal 0-0 [facility] Comment on above: Performed By: #### 5 0103 #### [facility] [address] [place] [address], [facility] PLAT CNT 98 10*3/uL Low 150-400 [facility] Comment on above: Performed By: #### 5 0103 #### [facility] [address] [place] [address], [facility] RBC (Bld) [#/Vol] 4.13 10*6/uL Low 4.20-5.70 The [facility] Comment on above: Performed By: #### 5 0103 #### [facility] [address] [facility]. [place] [id number], [facility] WBC (Bld) [#/Vol] 14.05 10*3/uL High 4.00-10.60 [facility] Comment on above: Performed By: #### 5 0103 #### [facility] [address] [facility] [place] [address], [facility] FACTOR IIon 10-28-2019 FACTOR II 69 % Normal 65-120 [facility] Comment on above: Performed By: #### 5 6101, 28678, 51256, 74604, 83727, 76039, 34843 #### [facility] [address] [place] [address], [facility] HOMOCYSTEINEon 10-28-2019 HOMOCYSTEINE 8.1 umol/L Normal 4.0-12.0 The [facility] Comment on above: Performed By: #### 5 6101, 44483, 14533, 74064, 17541, 32620, 12227 #### [facility] [address] [place] [address], [facility] LACTATE BLOODon 10-28-2019 Lactate [Moles/Vol] 1.2 mmol/L Normal 0.5-2.2 [facility] Comment on above: Order Comment: No: D o not add to previous draw Performed By: #### 1 0054 #### [facility] [address] [place] [address], [place] LIVER BATTERYon 10-28-2019 Albumin [Mass/Vol] 2.4 g/dL Low 3.5-5.7 [facility] Comment on above: Order Comment: No: D o not add to previous draw Performed By: #### 8 4511 #### [facility] [address] [place] [address], [facility] ALKALINE PHOSPH 187 IU/L High 34-104 [facility] Comment on above: Order Comment: No: D o not add to previous draw Performed By: #### 8 4511 #### [facility] [address] [place] [address], [place] ALT [Catalytic activity/Vol] 50 U/L Normal 7-52 [facility] Comment on above: Order Comment: No: D o not add to previous draw Performed By: #### 8 4511 #### [facility] [address] [place] [address], [place] AST [Catalytic activity/Vol] 26 U/L Normal 13-39 [facility] Comment on above: Order Comment: No: D o not add to previous draw Performed By: #### 8 4511 #### [facility] [address] [place] [address], [place] Bilirubin [Mass/Vol] 3.3 mg/dL High 0.3-1.0 [facility] Comment on above: Order Comment: No: D o not add to previous draw Performed By: #### 8 4511 #### [facility] [address] [place] [address], [facility] Bilirubin.direct [Mass/Vol] 2.2 mg/dL High 0.0-0.2 [facility] Comment on above: Order Comment: No: D o not add to previous draw Performed By: #### 8 4511 #### [facility] [address] [place] [address], [facility] Protein [Mass/Vol] 5.4 g/dL Low 6.0-8.3 The [facility] Comment on above: Order Comment: No: D o not add to previous draw Performed By: #### 8 4511 #### [facility] [address] [place] [address], [facility] MAGNESIUM BLOODon 10-28-2019 Magnesium [Mass/Vol] 1.9 mg/dL Normal 1.9-2.7 [facility] Comment on above: Order Comment: No: D o not add to previous draw Performed By: #### 8 4511 #### [facility] [address] Operative Reporton 9 Operative Report MR#: [id number] I [facility] Pt. Name: Miguel Baron Room #: ANSLEY [id number] Discharge Date: Birthdate: 1960 OPERATIVE REPORT DATE OF SURGERY: 10/28/2019 SURGEON: Pebbles Busch MD PREOPERATIVE DIAGNOSES: Mesenteric ischemia secondary [...] for the entire procedure. Electronically Signed by: Pebbles Busch MD 10/28/2019 06:05 P Pebbles Busch MD I was present for the entire procedure. Date Dict: 10/28/2019/02:12 P/Dana Dawn MD Date Trans: 10/28/2019 05:02 P/mmo [id number] cc: Jersey Whittaker D.O. [address] [facility] [id number] Wandy Magana M.D. E R Physican...do Not Send [address] [facility] [address] Normal [facility] PHOSPHORUS BLOODon 9 Phosphate [Mass/Vol] 3.8 mg/dL Normal 2.5-5.0 [facility] Comment on above: Order Comment: No: D o not add to previous draw Performed By: #### 8 5401 #### [address] PORTABLE CHEST 1 VIEWon 10-01 PORTABLE CHEST 1 VIEW [facility] Department of Radiology [address] [place] [id number] ======== Patient Name: MIGUEL BARON : 1960 Sex: M Age: Race: White Pt. Location: [place] [address] Patient Status: I Ordered Date: 10/28/2019 2:50:00 PM Completed Date: 10/28/2019 03:22 PM Requesting Provider: PEBBLES BUSCH Attending Provider: PEBBLES BUSCH Report Copy To: Signs & Symptoms: [...] Kendrick on 10/28/2019 3:28 PM EST. I, Wild Saravia, have reviewed the images and report and concur with these findings. Electronically signed by:Wild Saravia. Transcribed by: [email or web address], User Resident: NELSY KENDRICK Electronically Signed by: WILD SARAVIA @ 10/28/2019 04:50 PM I personally read this/these film(s) with this resident Normal [facility] Comment on above: Order Comment: Check NG Tube Position PROTEIN C ACTIVITYon 019 Protein [Mass/Vol] 47 % Critically low 60-140 Th e [facility] Comment on above: Performed By: #### 5 6101, 03974, 69503, 66058, 66121, 15399, 10372 #### [facility] [address] [facility]. [address] PROTEIN C ANTIGENon 10-28-20 19 Protein [Mass/Vol] 53 % Low 65-120 The [facility] Comment on above: Performed By: #### 5 6101, 52957, 64751, 54890, 69547, 63951, 00673 #### [facility] [address] [place] [address], [facility] PROTEIN S ACTIVITYon 019 Protein [Mass/Vol] 70 % Normal 60-165 The [facility] Comment on above: Performed By: #### 5 6101, 63641, 30602, 88551, 93460, 16472, 60975 #### [facility] [address] [address], [facility] PROTHROMBIN TIMEon 9 INR Coag (PPP) [Relative time] 1.27 {INR} High 0.91-1.16 [facility] Comment on above: Order Comment: No: [...] CHEST 1995;108:[id number]. Performed By: #### 5 6101, 71068, 75792, 76887, 72801, 74804, 17467 #### [facility] [address] [place] [address], [facility] PT Coag (PPP) [Time] 16.0 s High 12.3-14.8 [facility] Comment on above: Order Comment: No: D o not add to previous draw Result Comment: ALL RESULTS MUST BE INTERPRETED WITH RESPECT TO BLOOD DRAWING ARTIFACT OR DILUTION ERROR OF ANTICOAGULANT AT THE TIME OF SAMPLING. Performed By: #### 5 6101, 95971, 93072, 38752, 14911, 57418, 10887 #### [facility] [address] UFH HEPARIN ASSAYon 10-28-20 19 UNFRACTIONATED HEPARIN <0.10 Critically low 0.30-0.70 [facility] Comment on above: Result Comment: [place] roxaban and Apixaban will interfere with the anti Xa assay used to monitor UFH and LMWH. RESULTS CHECKED AND CALLED. ACCURATELY READ BACK BY BRANDON VAN RN AT 2150 ACTUAL UFH VALUE = 0.00 Performed By: #### 8 4511 #### [facility] [address] UNFRACTIONATED HEPARIN <0.10 Critically low 0.30-0.70 [facility] Comment on above: Result Comment: [place] roxaban and Apixaban will interfere with the anti Xa assay used to monitor UFH and LMWH. RESULTS CHECKED AND CALLED. ACCURATELY READ BACK BY MATTHEW NUR RN AT 1831 Performed By: #### 8 4511 #### [facility] [address] Vital Signs Date Time Vital Sign Value Performing Clinician Facility 08-03-2024 09:24040 Body height 187.96 cm [facility] 08-03-2024 09:24040 Body mass index (BMI) [Ratio] 23.6 kg/m2 [facility] 08-03-2024 09:24040 Body weight 83.46 kg [facility] 08-03-2024 09:24-0400 Diastolic blood pressure 84 mm[Hg] [facility] 08-03-2024 09:24040 Heart rate 91 /min [facility] 08-03-2024 09:24-0400 Respiratory rate 12 /min [facility] 08-03-2024 09:24-0400 Systolic blood pressure 145 mm[Hg] [facility] 04-15-2024 11:07-0400 Body height 187.96 cm [facility] 04-15-2024 11:07-0400 Body mass index (BMI) [Ratio] 23.8 kg/m2 [facility] 04-15-2024 11:07-0400 Body weight 83.97 kg [facility] 04-15-2024 11:07-0400 Diastolic blood pressure 68 mm[Hg] [facility] 04-15-2024 11:07-0400 Heart rate 91 /min [facility] 04-15-2024 11:07-0400 Respiratory rate 12 /min [facility] 04-15-2024 11:07-0400 Systolic blood pressure 127 mm[Hg] [facility] 02-13-2023 11:30-0400 Body height 187.96 cm Jersey Ball Other [facility] [employer] Other 02-13-2023 11:30-0400 Body mass index (BMI) [Ratio] 25.47 kg/m2 Jersey Ball Other [facility] [employer] Other 02-13-2023 11:30-0400 Body weight 89.99 kg Jersey Ball Other [facility] [employer] Other 02-13-2023 11:30-0400 Diastolic blood pressure 79 mm[Hg] Jersey Ball Other [employer] Other 02-13-2023 11:30-0400 Respiratory rate 12 /min Jersey Ball Other [employer] Other 02-13-2023 11:30-0400 Systolic blood pressure 125 mm[Hg] Jersey Ball Other [employer] Other 06-04-2022 13:59-0400 Blood Pressure Location Edison N[facility] 06-04-2022 13:59-0400 Diastolic blood pressure 84 mm[Hg] [facility] [place] 06-04-2022 13:59-0400 Heart rate 74 /min Edison N[facility] [place] 06-04-2022 13:59-0400 Respiratory rate 16 /min Edison N[facility] [place] 06-04-2022 13:59-0400 Systolic blood pressure 124 mm[Hg] Edison N[facility] Encounters Encounter Date Encounter Type Care Provider Facility Start: 08-29-2024 End: 08-29-2024 ambulatory [facility] Work Phone: Start: 08-29-2024 End: 08-29-2024 [facility] Work Phone: Start: 08-03-2024 End: 08-03-2024 ambulatory [facility] Work Phone: Start: 08-03-2024 End: 08-03-2024 Patient encounter procedure [facility] Work Phone: Start: 04-15-2024 End: 04-15-2024 ambulatory [facility] Work Phone: Start: 04-15-2024 End: 04-15-2024 Patient encounter procedure [facility] Work Phone: Start: 08-12-2023 End: 08-12-2023 ambulatory Stephy Benson Other [employer] Other Start: 08-12-2023 Nursing evaluation o f patient and report Stephy Kelley [facility] Start: 04-24-2023 End: 04-25-[address] JERSEY WHITTAKER Facility:[facility] Start: 04-16-2023 End: 04-17-[address] HANSEN LISTED REQUEST Facility:[facility] Start: 02-13-2023 End: 02-13-2023 ambulatory Jersey Whittaker Other [employer] Other Start: 02-13-2023 Office outpatient vi sit 15 minutes Jersey Whittaker [facility] Start: 07-23-2022 End: 07-23-[address] EDISON SALEH . Facility:[facility] Start: 07-22-2022 Encounter for preprocedural cardiovascular examination DR EDISON SALEH . [facility] Start: 07-22-2022 Encounter for preprocedural laboratory examination DR EDISON SALEH . [facility] Start: 07-18-2022 End: 07-19-[address] EDISON SALEH . Facility:[facility] Start: 07-18-2022 End: 07-19-2022 Encounter for preprocedural cardiovascular examination DR EDISON SALEH . Facility:[facility] Start: 06-04-2022 End: 06-04-2022 Patient encounter procedure Edison SALEH [facility] Start: 05-19-2022 End: 05-20-[address] JERSEY WHITTAKER Facility:[facility] Start: 04-14-2022 Adult health examination Karen Benson Other [employer] Other Start: 01-16-2020 End: 01-16-2020 Emergency department patient visit ALISON ARIZMENDI Facility:[facility] Start: 10-28-2019 End: 11-07-2019 Evaluation and management of inpatient PEBBLES Dobson JEREMIAS Facility:[facility] Procedures Date Procedure Procedure Detail Performing Clinician Start: 04-16-[address] BEARD [place] Comment on above: Performed By: #### [facility] #### [facility] [address] [place] [address] [address] Mayra Zuluaga Start: 05-19-[address] CHIRAG WHITTAKER Comment on above: Performed By: #### D ATPSA #### [facility] [address] [place] [address] [address] Mayra Zuluaga Start: 11-07-2019 Antibody screen PEBBLES BUSCH Comment on above: Performed By: #### 1 0054 #### [facility] [address] Start: 11-01-2019 Antibody screen PEBBLES BUSCH Comment on above: Performed By: #### 5 6101, 26962, 33517, 51164, 54440, 00987, 30519 #### [facility] [address] Start: 11-01-2019 TRANSFUSE NONAUT RED BLOOD CELLS IN PERIPH VEIN, PERC PEBBLES BUSCH Start: 10-28-2019 INSPECTION OF LOWER INTESTINAL TRACT, OPEN APPROACH PEBBLES BUSCH Start: 10-28-2019 MEASURE OF ARTERIAL SATURATION, PERIPHERAL, PERC APPROACH PEBBLES BUSCH Start: 03-12-2019 Laboratory test resu lt abnormal Stephy Benson Other Start: 01-22-2018 Hypertension screening Stephy Benson Other Start: 07-06-2015 General examination of patient Stephy Benson Other Start: 03-16-2009 Colonoscopy Edison TURNER LL Depression screening Stephy Benson Other Excision of cyst Edison NIL L Comment on above: scrotum x 2 Exploratory laparotomy Kaiden rosa NILL Repair of ventral hernia Ansley berman NILL Screening for malign ant neoplasm of prostate Stephy Benson Other Plan of Treatment Date Care Activity Detail Author [facility] Immunizations Immunization Date Immunization Notes Care Provider Fa cilialma 08-12-2023 influenza virus vaccine, unspecified formulation [facility] 08-12-2023 influenza, high dose seasonal, preservative-free Stephy Benson Other [facility] [employer] Other 08-12-2023 Prevnar 20 Stephy Benson Other [facility] 08-18-2022 influenza virus vaccine, split virus (incl. purified surface antigen) Stephy Benson Other [facility] [employer] Other 08-18-2022 influenza virus vaccine, unspecified formulation [facility] 08-18-2022 influenza, injectabl e, quadrivalent, preservative free [facility] 08-18-2022 influenza, injectabl e, quadrivalent, contains preservative Stephy Benson Other [facility] [employer] Other 11-11-2021 COVID-19 Vaccine Pfi zer - Documentation Purposes Only Stephy Benson Other [facility] 08-20-2021 influenza virus vaccine, split virus (incl. purified surface antigen) Stephy Benson Other [facility] [employer] Other 08-20-2021 influenza virus vaccine, unspecified formulation [facility] 03-05-2021 COVID-19 Vaccine Pfi zer - Documentation Purposes Only Stephy Benson Other [facility] 02-11-2021 COVID-19 Vaccine Pfi zer - Documentation Purposes Only Stephy Benson Other [facility] 07-13-2020 influenza virus vaccine, split virus (incl. purified surface antigen) Stephy Benson Other [facility] [employer] Other 07-13-2020 influenza virus vaccine, unspecified formulation [facility] 03-05-2020 COVID-19 Vaccine Pfi zer - Documentation Purposes Only Stephy Benson Other [facility] 08-25-2019 influenza virus vaccine, split virus (incl. purified surface antigen) Stephy Benson Other [facility] Other 08-25-2019 influenza virus vaccine, unspecified formulation [facility] 08-08-2018 influenza virus vaccine, split virus (incl. purified surface antigen) Stephy Benson Other [facility] Other 08-08-2018 influenza virus vaccine, unspecified formulation [facility] 09-02-2017 tetanus and diphther ia toxoids, adsorbed, preservative free, for adult use (5 Lf of tetanus toxoid and 2 Lf of diphtheria toxoid) Stephy Benson Other [facility] 08-30-2016 tetanus and diphther ia toxoids, adsorbed, preservative free, for adult use (5 Lf of tetanus toxoid and 2 Lf of diphtheria toxoid) Stephy Benson Other [facility] 09-07-2013 tetanus and diphther ia toxoids, adsorbed, preservative free, for adult use (5 Lf of tetanus toxoid and 2 Lf of diphtheria toxoid) Stephy Benson Other [facility] Payers Date Payer Category Payer Private Health Insurance [id number] 1961 Medicare [id number] 1961 Private Health Insurance [id number] 1959 Self-pay 1960 Unknown [id number] 1960 Unknown [id number] [id number] 1958 Unknown [id number] 2.16.84 [id number] 1958 Unknown [id number] 2.16.84 [id number] 1960 Unknown [id number] 2.16.84 [id number] Unknown [id number] 2.16.84 [id number] Unknown [id number] 2.16.84 [id number] Social History Date Type Detail Facility Start: 06-04-2022 Tobacco smoking status Heavy t obacco smoker (finding) [facility] Tobacco smoking status Never Gener al Surgery [facility] Sex Assigned At Male Genera l [facility] Start: 1960 Sex Assigned At Male F [facility] Functional Status Date Assessment Result Facility 06-04-2022 Functional Status N/A [facility] [employer] Clinical Notes 06-05-2022 to 02-13-2023 Note Date & Type Note Facility [...] to respiratory infections, vascular disease and cancers. [facility] Other 08-24-2022 NoteOPERATIVE NOTE OPERATION DATE: 07/23/2022 PREOPERATIVE DIAGNOSIS: Positive [...] room in good condition. CC: Jersey Whittaker D.O.[facility] [id number] NoteEXAMINATION: XR CHEST 2 V HISTORY: Nicotine dependence ; preoperative [...] Electronically authenticated by: DRAGAN PORTILLO Date: 2022-07-19 07:25[facility] [id number] NoteChief Complaint consultation for positive Cologuard [facility] Staff 62 year old male presents on consultation from Dr. Whittaker for positive Cologuard. Denies abdominal orrectal pain. No rectal bleeding or change in bowel habits. Denies nausea or vomiting. No unexplained weight loss. Last colonoscopy completed 2008. No known family history of colon cancer. History of Present Illness 62 yo male with h/o protein C deficiency, athritis, BPH, referred for positive Cologuard; denies change in bms or blood in stools, no abdominal complaints; last colonoscopy 2008; abdominal operationssignificant for exploratory laparotomy and incisional hernia repair [...] swallowing difficulties, no hearing loss, no ear infection(s),no nose bleeds. Cardiovascular: normal blood pressure, no [...] Mother. Primary malignant marina (more content not included)...[facility] Comment on above:Result Comment: Electronically Signed By: NICKY DALE, Edison Ernandez\Date and Time Signed: 06/05/22 15:05 EDTEvaluation + Plan note No data available for this section General Surgery [place] Evaluation noteNo InformationNortThe [facility] [employer] Other Evaluation note* Diagnosis Onset Date Resolution Status Benign prostatic hyperplasia with lower urinary tract symptoms acute Lumbar spondylosis acute Nicotine addiction acute Medicare annual wellness visit, initial noneactive Screening PSA (prostate specific antigen) noneactive [facility] Work Phone: Evaluation noteNo assessment information available [facility] Work Phone: Evaluation note* Diagnosis Onset Date Resolution Status Allergic contact dermatitis acute Pruritic rash acute [facility] Work Phone: History general Narrative - Reported* Type Description Date Medical History Positive colorectal cancer screening using Cologuard test Medical History Acute blood loss anemia Medical History Protein C deficiency Medical History Incisional hernia of anterior abdominal wall without obstruction or gangrene Medical History Superior mesenteric vein thrombo sis Medical History Lumbar spondylosis Medical History Benign prostatic hyp erplasia with lower urinary tract symptoms Medical History Arthritis of both knees Medical History Cigarette nicotine dependence, u ncomplicated Medical History Portal vein thrombosis Surgical History COLONOSCOPY 2016,2021 Surgical History EXPLORATORY LAPAROTOMY 2018 Surgical History VENTRAL HERNIA REPAIR WITH MESH 2020 Surgical History POLYPECTOMY: HYPERPLASTIC PULP AND TUBULAR ADENOMA Hospitalization History SEE SURGICAL HX [facility] [employer] Other Hospital Discharge instructions No data available for this section [facility] [place] Progress note No data available for this section General Surgery [place] Summary Purpose Family History Relationship Condition Age at Onset Recorded Date/T dain father Malignant neoplasm Unknown Not Specified Hypertension Unknown Relationship Condition Age at Onset Recorded Date/T dain father Malignant neoplasm Unknown mother Hypertension Unknown Advance Directives Advance Directive Response Recorded Date/ Time Advance Directives No December 23, 2023 10:05am Hospital Course Note MR#: [id number] [facility] Pt. Name: Miguel Baron Admitted: 10/28/2019 Discharged: 11/07/2019 Date of : 1960 Physician: Pebbles Busch MD DISCHARGE SUMMARY PRINCIPAL DIAGNOSES: 1. 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 2. Escherichia coli positive abdominal wound infection. 3. Iron deficiency anemia. SECONDARY DIAGNOSIS: Arthritis of bilateral knees. SURGERIES DURING THIS ADMISSION: Status post exploratory laparotomy with abdominal washout. SUMMARY OF THE HOSPITAL COURSE: The patient is a 59-year-old male who presented to [facility] as a transfer from an outside hospital. [...] visit, initial Screening PSA (prostate specific antigen) Chief Complaint Poison eric Chief Complaint Poison eric flu shot Reason for Visit Allergic contact johann matitis Pruritic rash Additional Source Comments (unrecognized sect ion and content) No Status Records FoundNo Status Records FoundNo Status Records FoundNo Status Records FoundNo Status Records Found INFORMATION SOURCE (unrecogn ized section and content) DATE CREATED AUTHOR 12/08/2019 [facility] DATE CREATED AUTHOR AUTHOR'S ORGANIZ ATION 01/19/2020 [facility] DATE CREATED AUTHOR AUTHOR'S ORGANIZ ATION 06/20/2022 [facility] [place] DATE CREATED AUTHOR AUTHOR'S ORGANIZ ATION 08/06/2022 [facility] DATE CREATED AUTHOR AUTHOR'S ORGANIZ ATION 05/08/2023 [facility] Care Team (unrecognized sect ion and content) Team Status: Active Member Role Status Dates Jersey Whittaker DO Primary Care Provider Active Team Status: Inactive Member Role Status Dates Jersey Whittaker DO Primary Care Provide r, Attending Provider Active Start: April 15, 2024 End: April 15, 2024 Team Status: Inactive Member Role Status Dates Jersey Ball , DO Primary Care Provide r, Attending Provider Active Start: August 03, 2024 End: August 03, 2024 Team Status: Inactive Member Role Status Dates Jersey Whittaker , DO Primary Care Provide r, Attending Provider Active Start: August 29, 2024 End: August 29, 2024 REASON FOR VISIT (unrecogniz ed section [...] BE BASED ON THE PRIMARY CLINICAL RECORDS. [facility] [employer] [facility]. provides no warranty or guarantee of the accuracy or completeness of information in this document.
[2025-04-18 08:10] LABS: Prostate Specific Antigen Scrn 0.68 ng/mL (<=4.00)
== END 2025-04-18 06:35 | disposition home or self-care (01) ==
LOC: LAB 06:34
PROVIDERS: PCP Internal Medicine; Visit Provider Internal Medicine
DX: Z12.5 Encounter for screening for malignant neoplasm of prostate (principal)
CPT/HCPCS: G0103

== ENCOUNTER 2025-05-19 08:20 | Outpatient (OUT) | payer MEDICARE, OTHER, SELFPAY ==
--- OUTSIDE RECORDS SUMMARY | 2025-05-19 08:22 | XMS_ITS | Clinical Summary ---
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 Name Role Phone Unavailable Primary Care Provider Unavailabl e Social History Tobacco Use Types Packs/Day Years Used Date Smoking Tobacco: Never Assessed Sex and Gender Information Value Date Recorded Sex Assigned at Not on file Legal Sex Male 8:24 PM EDT Gender Identity Not on file Sexual Orientation Not on file Last Filed Vital Signs Vital Sign Reading Time Taken Comments Blood Pressure 126/74 07/15/2021 12:00 PM EDT Pulse - - Temperature - - Respiratory Rate - - Oxygen Saturation - - Inhaled Oxygen Concentration - - Weight 81.2 kg (179 lb) 07/15/2021 12:00 PM EDT Height 188 cm (6' 2 ) 07/15/2021 12:00 PM EDT Body Mass Index 22.98 07/15/2021 12:00 PM EDT Plan of Treatment Not on file
--- OUTSIDE RECORDS SUMMARY | 2025-05-19 08:22 | XMS_ITS | Clinical Summary ---
Author Organization [facility] Address [address] [place] [address] Care Team Providers Care Match Up Person Name Role Phone Unavailable Primary Care Provider Unavailabl e Medications CLARINEX 5MG TABLET Take one(1) tablet daily. 0 10/05/2002 Active MULTIVITAMIN TABLET Take one(1) tablet daily. 0 10/05/2002 Active FOLIC ACID 400MCG TABLET Take one(1) tablet daily. 0 10/05/2002 Active VITAMIN E 400IU SOFTGEL Take one(1) capsule daily. 0 10/05/2002 Active Immunizations Immunization Administration Dates Next Due influenza vaccine, whole virus 10/05/2002 tetanus toxoid (TT) vaccine 10/05/2002 Family History Medical History Relation Comments Hypertension Brother lung cancer Father age 75 of L hafsa Cancer (mesothelioma), asbestosis. Abdominal aneurysn. cholesterol Mother age 77. TB. Relation Status Comments Brother Father Mother Social History Tobacco Use Types Packs/Day Years Used Date Smoking Tobacco: Every Day Cigarettes 2 20 Alcohol Use Standard Drinks/Week Comments Not Asked 0 (1 standard drink = 0.6 oz pure alcohol) 4-8 beers a day. Feels he needs to cut down. 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 [employer] Not on file Not on file Last Filed Vital Signs Vital Sign Reading Time Taken Comments Blood Pressure 130/78 01/18/2003 3:00 PM EST Pulse 70 01/18/2003 3:00 PM EST Temperature - - Respiratory Rate - - Oxygen Saturation - - Inhaled Oxygen Concentration - - Weight 89.6 kg (197 lb 8 oz) 01/18/2003 3:00 PM EST Height 182.9 cm (6') 10/05/2002 11:00 AM EST Body Mass Index 26.79 10/05/2002 11:00 AM EST Plan of Treatment Health Maintenance Due Date Last Done Comments Abdominal Aortic Aneurysm Screening 1960 Anxiety Screening 1976 Depression Screening 1976 Hepatitis C Screening 1976 DTaP,Tdap,Td Vaccine (1 - Tdap) [address] Colonography 2003 Cologuard (FIT-DNA) 2003 Colonoscopy 2003 Colorectal Cancer Screening 2003 Diabetes Screening 2003 Fecal Occult Blood 2003 Prostate Cancer Screening Discussion 2003 Sigmoidoscopy 2003 Pneumococcal Vaccine: 50+ (1 of 1 - PCV) 2008 Shingrix Vaccine (1 of 2) 2008 Covid-19 Vaccine ( - season) 2024 Advance Directive Discussion 11/30/2024 Influenza Vaccine (Season Ended) 2025 10/05/20 02 RSV Vaccine (1 - 1-dose 75+ series) [address] [place] [address] [employer] P[employer]
--- OUTSIDE RECORDS SUMMARY | 2025-05-19 08:24 | XMS_ITS | CCD ---
Author Organization [facility] Care Team Providers Care Order Desk Clerk Name Role Phone PEBBLES BUSCH Admitting Unavailable PEBBLES BUSCH Attending Unavailable WANDY MAGANA Referring Unavailable JERSEY WHITTAKER Primary Care Unavailable AR Procedure Practitioner Unavailab PEBBLES Morgan Surgeon Unavailable UGO, ALISON Admitting Unavailable SANAZ, JERSEY Primary Care Unavailable SELF, REFERRED Referring Unavailable ADOLFO LEVINE Attending Unavailable SANAZ, JERSEY Primary Care Physician [phone] [place], [place] Unavailable SANAZ, DR LAYNE Admitting [...] physicia Propensity to adverse reactions 4 Comment:Done [employer] Other Medications Current Medications Medication Drug Class(es) [...] twice daily for 7 days Jan, Active [place] (No Known Home Meds) (1 source) Start: 04-15-2024 [place] (No Known Home Meds) Active April 15, [...] 15, 2024 11:05am take 1 capsule by wv ut every twenty-four hours Tamsulosin HCl 0.4 [...] use of drug therapy; Translations: [Other intermediate (current) drug therapy] Episodic Other gastrointestinal disorders [...] DRAGAN PORTILLO Date: 2023-04-24 10:47 Normal [facility] CBC AUTO DIFFon 04-16-2023 BASO # 0.0 103/ul Normal 0.0-0.1 [facility] Comment on above: Performed By: #### D ATCBC #### [facility] [address] [address] [address] Mayra Zuluaga Basophils/100 WBC (Bld) 0.6 % Normal 0.2-2.0 [facility] Comment on above: Performed By: #### D ATCBC #### [facility] [address] [address] [address] Mayra Zuluaga EO # 0.1 103/ul Normal 0.0-0.7 [facility] Comment on above: Performed By: #### D ATCBC #### [facility] [address] [place] [address] Dr. Mayra Zuluaga Eosinophils/100 WBC (Bld) 2.1 % Normal 0.9-7.0 [facility] Comment on above: Performed By: #### D ATCBC #### [facility] [address] [place] [address] Dr. Mayra Zuluaga Erythrocyte distribution width (RBC) [Ratio] 13.2 % Normal 11.0-15.0 [facility] Comment on above: Performed By: #### D ATCBC #### [facility] [address] [place] [address] Dr. Mayra Zuluaga Hematocrit (Bld) [Volume fraction] 45.2 % Normal 42.0-54.0 [facility] Comment on above: Performed By: #### D ATCBC #### [facility] [address] [place] [address] Dr. Mayra Zuluaga Hemoglobin (Bld) [Mass/Vol] 15.0 g/dL Normal 14.0-18.0 [facility] Comment on above: Performed By: #### D ATCBC #### [facility] [address] [place] [address] Dr. Mayra Zuluaga IG # 0.02 10e3/ul Normal 0.00-0.03 [facility] Comment on above: Performed By: #### D ATCBC #### [facility] [address] [place] [address] Dr. Mayra Zuluaga IG % 0.3 % Normal 0.0-0.5 [facility] Comment on above: Performed By: #### D ATCBC #### [facility] [address] [place] [address] Dr. Mayra Zuluaga LYMPH # 2.0 103/ul Normal 1.2-3.8 [facility] Comment on above: Performed By: #### D ATCBC #### [facility] [address] [place] [address] Dr. Mayra Zuluaga Lymphocytes/100 WBC (Bld) 32.3 % Normal 20.5-60.0 [facility] Comment on above: Performed By: #### D ATCBC #### [facility] [address] [place] [address] Dr. Mayra Zuluaga MCH (RBC) [Entitic mass] 31.0 pg Normal 25.9-34.0 [facility] Comment on above: Performed By: #### D ATCBC #### [facility] [address] [address] [address] Mayra Zuluaga MCHC (RBC) [Mass/Vol] 33.2 g/dL Normal 29.9-35.2 [facility] Comment on above: Performed By: #### D ATCBC #### [facility] [address] [address] [address] Mayra Zuluaga MCV (RBC) [Entitic vol] 93.4 fL Normal 80.0-94.0 [facility] Comment on above: Performed By: #### D ATCBC #### [facility] [address] [address] [address] Mayra Zuluaga MONO # 0.9 103/ul Critically high 0.3-0.8 [facility] Comment on above: Performed By: #### D ATCBC #### [facility] [address] [address] [address] Mayra Zuluaga Monocytes/100 WBC (Bld) 13.9 % Critically high 1.7-12.0 [facility] Comment on above: Performed By: #### D ATCBC #### [facility] [address] [address] [address] Mayra Zuluaga NEUT # 3.2 103/ul Normal 1.4-6.5 [facility] Comment on above: Performed By: #### D ATCBC #### [facility] [address] [address] [address] Mayra Zuluaga Neutrophils/100 WBC (Bld) 50.8 % Normal 43.0-75.0 [facility] Comment on above: Performed By: #### D ATCBC #### [facility] [address] [address] [address] Mayra Zuluaga Platelet mean volume (Bld) [Entitic vol] 9.5 fL Normal 9.5-13.5 [facility] Comment on above: Performed By: #### D ATCBC #### [facility] [address] [address] [address] Mayra Zuluaga PLT 215 103/ul Normal 150-450 [facility] Comment on above: Performed By: #### D ATCBC #### [facility] [address] [place] [address] Dr. Mayra Zuluaga RBC 4.84 106/ul Normal 4.70-6.10 [facility] Comment on above: Performed By: #### D ATCBC #### [facility] [address] [place] [address] Dr. Mayra Zuluaga WBC 6.3 103/ul Normal 4.0-11.0 [facility] Comment on above: Performed By: #### D ATCBC #### [facility] [address] [place] [address] Dr. Mayra Zuluaga AMINATA- BMP WITH LIPIDon 2022 Anion gap [Moles/Vol] 12.5 mmol/L Normal [facility] Comment on above: Performed By: #### D ATBMP, DATPSA #### [facility] [address] [place] [address] Dr. Mayra Zuluaga Calcium [Mass/Vol] 8.6 mg/dL Normal 8.5-10.1 [facility] Comment on above: Performed By: #### D ATBMP, DATPSA #### [facility] [address] [place] [address] Dr. Mayra Zuluaga Chloride [Moles/Vol] 103 mmol/L Normal 98-107 [facility] Comment on above: Performed By: #### D ATBMP, DATPSA #### [facility] [address] [place] [address] Dr. Mayra Zuluaga Cholesterol [Mass/Vol] 178 mg/dL Normal <=200 [facility] Comment on above: Performed By: #### D ATBMP, DATPSA #### [facility] [address] [place] [address] Dr. Mayra Zuluaga Cholesterol in HDL [Mass/Vol] 62 mg/dL Critically high 40-60 [facility] Comment on above: Performed By: #### D ATBMP, DATPSA #### [facility] [address] [place] [address] Dr. Mayra Zuluaga Cholesterol in LDL [Mass/Vol] 108.8 mg/dL Normal [facility] Comment on above: Performed By: #### D ATBMP, DATPSA #### [facility] [address] [place] [address] Dr. Mayra Zuluaga CO2 [Moles/Vol] 28.9 mmol/L Normal 21.0-32.0 [facility] Comment on above: Performed By: #### D ATBMAlexia, DATPSA #### [facility] [address] [place] [address] Dr. Mayra Zuluaga Creatinine [Mass/Vol] 0.84 mg/dL Normal 0.70-1.30 [facility] Comment on above: Performed By: #### D ATBMAlexia, DATPSA #### [facility] [address] [place] [address] Dr. Mayra Zuluaga EGFR-AF [facility] LUCIAN >60 Normal >=60 [facility] Comment on above: Performed By: #### D ATBMAlexia, DATPSA #### [facility] [address] [place] [address] Dr. Mayra Zuluaga EGFR-NON AF [facility] LUCIAN >60 Normal >=60 [facility] Comment on above: Performed By: #### D ATAlexia, DATPSA #### [facility] [address] [place] [address] Dr. Mayra Zuluaga Glucose [Mass/Vol] 114 mg/dL Critically high 74-106 T [facility] Comment on above: Performed By: #### D ATBMAlexia, DATPSA #### [facility] [address] [place] [address] Dr. Mayra Zuluaga HDL NORMAL > or = 60 mg/dl - LO W CARDIOVASCULAR RISK <40 mg/dl - HIGH CARDIOVASCULAR RISK Normal [facility] Comment on above: Performed By: #### D ATBMP, DATPSA #### [facility] [address] [place] [address] Dr. Mayra Zuluaga LDL CALC NORMAL SEE BELOW Normal [facility] Comment on above: Result Comment: <100 mg/dl OPTIMAL 100 - 129 mg/dl NEAR OR ABOVE OPTIMAL 130 - 159 mg/dl BORDERLINE HIGH 160 - 189 mg/dl HIGH >190 mg/dl VERY HIGH Performed By: #### D ATBMP, DATPSA #### [facility] [address] [place] [address] Dr. Mayra Zuluaga Potassium [Moles/Vol] 4.4 mmol/L Normal 3.5-5.1 [facility] Comment on above: Performed By: #### D ATBMP, DATPSA #### [facility] [address] [place] [address] Dr. Mayra Zuluaga Sodium [Moles/Vol] 140 mmol/L Normal 136-145 [facility] Comment on above: Performed By: #### D ATBMP, DATPSA #### [facility] [address] [place] [address] Dr. Mayra Zuluaga Triglyceride [Mass/Vol] 36 mg/dL Normal <=150 [facility] Comment on above: Performed By: #### D ATBMP DATPSA #### [facility] [address] [place] [address] Dr. Mayra Zuluaga Urea nitrogen [Mass/Vol] 12.0 mg/dL Normal 7.0-18.0 [facility] Comment on above: Performed By: #### D ATBMP, DATPSA #### [facility] [address] [place] [address] Dr. Mayra Zuluaga Urea nitrogen/Creatinine [Mass ratio] 14.3 mg/mg Normal [facility] Comment on above: Performed By: #### D ATBMP, DATPSA #### [facility] [address] [place] [address] Dr. Mayra Zuluaga VLDL CALC 7.2 mg/dL Normal [facility] Comment on above: Performed By: #### D ATBMP, DATPSA #### [facility] [address] [place] [address] Dr. Mayra Zuluaga Ambulatory Visit Summaryon 0 [...] Primary malignant neoplasm of lung: Father. Normal [facility] Comment on above: Result Comment: Elec tronically Signed By: NICKY DALE, Edison Ernandez\Date and Time Signed: 08/05/22 13:21 EDT Reminderson 08-05-2022 Reminders - From: Shanna Moreno LPN To: N - Clinical; Sent: 08/05/2022 13:45:08 EDT Show up: 06/22/2025 07:00:00 EDT Subject: colonoscopy recall Due Date/Time: 07/23/2025 07:00:00 EDT Reminder/Recall Patient is due for colonoscopy 07/23/2025 due to history of colonic polyps. Normal [facility] Pathology Noteon 07-25-2022 Pathology Note [id number]#1.0 0CD:127 Normal [facility] Outside Colonoscopyon 2021 Outside Colonoscopy [id number] 80 [id number] 0CD:127 Normal [facility] Lab Reportson 07-22-2022 Lab Reports [id number] CD:127 Normal [facility] RAD - MISCon 07-22-2022 RAD - MISC [id number] 0CD:127 Normal [facility] Covid-19 PCR ([facility])on 06-30 SARS-CoV-2 (COVID-19) RNA DOROTHY+probe Ql (Unsp spec) Not detected Normal NOT DETECTED [facility] Comment on above: Result Comment: This test is not yet approved or cleared by the [place] FDA. When there are no FDA-approved or cleared tests available, and other criteria are met, FDA can make tests available under an emergency access mechanism called an Emergency Use Authorization (EUA). The EUA for this test is supported by the Host of Health and Human Service's (HHS's) declaration [...] SARS-CoV-2. Performed By: #### C VDTB #### [facility] [address] [place] [address] Dr. Mayra Zuluaga Consent for Procedure/Surger yon 06-05-2022 Consent for Procedure/Surgery [id number] 0CD:127 Normal [facility] Ambulatory Visit Summaryon 0 06-04-2022 Ambulatory Visit [...] Protein C deficiency Splenic vein thrombosis Normal [facility] Physician Referralon 022 Physician Referral [id number] 0CD:127 Normal [facility] Surgical Pathology Depar tmenton 01-30-2022 [facility] Surgical Pathology Department Name MIGUEL BARON Pathologist: DOMINGA AGRAWAL DMD Date of Procedure: 01/30/2022 Date Received: 02/03/2022 Date Reported 02/06/2022 Submitting Physician: REMIGIO MENDOZA DDS Location: [facility] Other External # FINAL DIAGNOSIS A. RIGHT SOFT PALATAL MUCOSA, INCISIONAL BIOPSY: -- MILD EPITHELIAL DYSPLASIA (MULTIPLE LEVELS EXAMINED) ICD-10/CPT: [id number] Electronically Signed Out By DOMINGA AGRAWAL DMD/JONNATHAN [...] in toto in 1 cassette. AMANDEEP matos/02/03/2022 [facility] Department of Pathology [address] [place] [address] Normal [facility] Comment on above: Performed By: #### [facility] #### [facility] Surgical Pathology Department [address] [place] [address] BASIC METABOLIC PANELon 12-31 Calcium [Mass/Vol] 9.6 mg/dL Normal 8.6-10.3 [facility] Comment on above: Performed By: #### 1 0054 #### [facility] [address] [place] [address], [facility] Chloride [Moles/Vol] 100 mmol/L Normal 98-107 [facility] Comment on above: Performed By: #### 1 0054 #### [facility] [address] [place] [address], [facility] CO2 [Moles/Vol] 25 mmol/L Normal 21-31 [facility] Comment on above: Performed By: #### 1 0054 #### [facility] [address] [place] [address], [facility] Creatinine [Mass/Vol] 0.62 mg/dL Low 0.70-1.30 [facility] Comment on above: Performed By: #### 1 0054 #### [facility] [address] [facility] [place] [address], [facility] GFR/1.73 sq M predicted among blacks MDRD (S/P/Bld) [Vol rate/Area] mL/min/{1.73_m2} Normal >60 [facility] Comment on above: Performed By: #### 1 0054 #### [facility] [address] [place] [address], [facility] GFR/1.73 sq M predicted among non-blacks MDRD (S/P/Bld) [Vol rate/Area] mL/min/{1.73_m2} Normal >60 [facility] Comment on above: Performed By: #### 1 0054 #### [facility] [address] [place] [address], [facility] Glucose [Mass/Vol] 97 mg/dL Normal 70-100 The [facility] Comment on above: Performed By: #### 1 0054 #### [facility] [address] [place] [address], [facility] Potassium [Moles/Vol] 3.9 mmol/L Normal 3.5-5.1 [facility] Comment on above: Performed By: #### 1 0054 #### [facility] [address] [place] [address], [facility] Sodium [Moles/Vol] 131 mmol/L Low 136-145 [facility] Comment on above: Performed By: #### 1 0054 #### [facility] [address] [place] [address], [facility] Urea nitrogen [Mass/Vol] 5 mg/dL Low 7-25 [facility] Comment on above: Performed By: #### 1 0054 #### [facility] [address] [place] [address], [facility] CBC W/DIFFon 01-16-2020 ABS BASOPHILS 0.0 10*3/uL Normal 0.0-0.2 The [facility] Comment on above: Performed By: #### 1 0054 #### [facility] [address] [place] [address], [facility] ABS IMM GRANS 0.0 10*3/uL Normal 0.0-0.2 [facility] Comment on above: Performed By: #### 1 0054 #### [facility] [address] [place] [address], [facility] ABS NEUTROPHILS 5.5 10*3/uL Normal 1.6-7.6 The [facility] Comment on above: Performed By: #### 1 0054 #### [facility] [address] [place] [address], [facility] Basophils/100 WBC (Bld) 0.4 % Normal 0.0-1.0 [facility] Comment on above: Performed By: #### 1 0054 #### [facility] [address] [place] [address], [facility] Eosinophils (Bld) [#/Vol] 0.1 10*3/uL Normal 0.0-0.5 [facility] Comment on above: Performed By: #### 1 0054 #### [facility] [address] [place] [address], [facility] Eosinophils/100 WBC (Bld) 1.0 % Normal 0.0-6.0 [facility] Comment on above: Performed By: #### 1 0054 #### [facility] [address] [place] [address], [facility] Erythrocyte distribution width (RBC) [Ratio] 15.0 % Normal 11.5-15.0 [facility] Comment on above: Performed By: #### 1 0054 #### [facility] [address] [place] [address], [facility] Hematocrit (Bld) [Volume fraction] 41.1 % Normal 39.0-50.0 The [facility] Comment on above: Performed By: #### 1 4 #### [facility] [address] Hemoglobin (Bld) [Mass/Vol] 13.2 g/dL Normal 13.0-17.0 [facility] Comment on above: Performed By: #### 1 0054 #### [facility] [address] [place] [address], [facility] IMMATURE GRANS 0.2 % Normal 0.0-1.0 [facility] Comment on above: Performed By: #### 1 0054 #### [facility] [address] Lymphocytes (Bld) [#/Vol] 3.1 10*3/uL Normal 1.2-4.0 The [facility] Comment on above: Performed By: #### 1 0054 #### [facility] [address] Lymphocytes/100 WBC (Bld) 31.1 % Normal 20.0-45.0 [facility] Comment on above: Performed By: #### 1 0054 #### [facility] [address] MCH (RBC) [Entitic mass] 27.9 pg Normal 27.0-33.0 [facility] Comment on above: Performed By: #### 1 0054 #### [facility] [address] MCHC (RBC) [Mass/Vol] 32.1 g/dL Normal 32.0-35.0 [facility] Comment on above: Performed By: #### 1 0054 #### [facility] [address] [place] [address], [facility] MCV (RBC) [Entitic vol] 86.9 fL Normal 82.0-98.0 [facility] Comment on above: Performed By: #### 1 0054 #### [facility] [address] [place] [address], [facility] Monocytes (Bld) [#/Vol] 1.2 10*3/uL High 0.1-1.0 [facility] Comment on above: Performed By: #### 1 0054 #### [facility] [address] [facility] [place] [address], [facility] MONOS 11.7 % Normal 5.0-12.0 [facility] Comment on above: Performed By: #### 1 0054 #### [facility] [address] [place] [address], [facility] Neutrophils/100 WBC (Bld) 55.6 % Normal 40.0-72.0 [facility] Comment on above: Performed By: #### 1 0054 #### [facility] [address] [place] [address], [facility] Nucleated RBC/100 WBC (Bld) [Ratio] 0 % Normal 0-0 [facility] Comment on above: Performed By: #### 1 0054 #### [facility] [address] [place] [address], [facility] PLAT CNT 296 10*3/uL Normal 150-400 The [facility] Comment on above: Performed By: #### 1 0054 #### [facility] [address] [facility] [place] [address], [facility] RBC (Bld) [#/Vol] 4.73 10*6/uL Normal 4.20-5.70 [facility] Comment on above: Performed By: #### 1 0054 #### [facility] [address] [place] [address], [facility] WBC (Bld) [#/Vol] 9.81 10*3/uL Normal 4.00-10.60 [facility] Comment on above: Performed By: #### 1 0054 #### [address] [place], [place] [id number] [place] [address] CT ABDOMEN AND PELVIS W IV A ND ORAL CONTRASTon 01-16-2020 CT ABDOMEN AND PELVIS W IV AND ORAL CONTRAST [facility] Department of Radiology [address] [place] [id number] ======== Patient Name: MIGUEL BARON : 1960 Sex: M Age: Race: White Pt. Location: [facility] Patient Status: E Ordered Date: 01/16/2020 12:10:00 [...] achievable Electronically signed: Jennifer Cohen. Transcribed by: [email or web address], User Resident: Electronically Signed by: JENNIFER COHEN @ 01/16/2020 02:26 PM Normal [facility] Comment on above: Order Comment: No: D o not add to previous draw Coding Summaryon 12-08-2019 Coding Summary CODING DATE: 12/08/2019 [facility] STATUS: Home PAYOR: Commercial Insurance ADMIT [...] Hurtado Revised Date Saved: 11/22/2019 11:54 am [facility] Provider Orderson 11-18-2019 Provider Orders [id number] [facility] H&Hon 11-17-2019 Hematocrit (Bld) [Volume fraction] 28.7 % Low 34.8-51.9 [facility] Comment on above: Performed By: #### 5 [id number] #### [facility] (DEFAULT) [address] [place] [id number] Hemoglobin (Bld) [Mass/Vol] 9.2 g/dL Low 11.8-17.7 [facility] Comment on above: Performed By: #### 5 [id number] #### [facility] (DEFAULT) [address] [place] [id number] BASIC METABOLIC PANELon 12-0 Calcium [Mass/Vol] 7.3 mg/dL Low 8.6-10.3 [facility] Comment on above: Order Comment: No: D o not add to previous draw Performed By: #### 5 6101, 22062, 94623, [address]105, 74724, 17886, [address] #### [facility] [address] [place] [address], [facility] Chloride [Moles/Vol] 99 mmol/L Normal 98-107 [facility] Comment on above: Order Comment: No: D o not add to previous draw Performed By: #### 5 6101, 19668, 98137, 05683, 53434, 94077, 28372 #### [facility] [address] [place] [address], [place] CO2 [Moles/Vol] 27 mmol/L Normal 21-31 [facility] Comment on above: Order Comment: No: D o not add to previous draw Performed By: #### 5 6101, 84608, 41911, 01542, 48922, 57004, 92009 #### [facility] [address] [place] [address], [place] Creatinine [Mass/Vol] 0.38 mg/dL Low 0.70-1.30 [facility] Comment on above: Order Comment: No: D o not add to previous draw Performed By: #### 5 6101, 51837, 47106, 51895, 24184, 11619, 17211 #### [facility] [address] [place] [address], [place] GFR/1.73 sq M predicted among blacks MDRD (S/P/Bld) [Vol rate/Area] mL/min/{1.73_m2} Normal >60 [facility] Comment on above: Order Comment: No: D o not add to previous draw Performed By: #### 5 6101, 39507, 52291, 80420, 01799, 31151, 72632 #### [facility] [address] [place] [address], [place] GFR/1.73 sq M predicted among non-blacks MDRD (S/P/Bld) [Vol rate/Area] mL/min/{1.73_m2} Normal >60 [facility] Comment on above: Order Comment: No: D o not add to previous draw Performed By: #### 5 6101, 67291, 22592, 44642, 60094, 68195, 98882 #### [facility] [address] [place] [address], [place] Glucose [Mass/Vol] 95 mg/dL Normal 70-100 The [facility] Comment on above: Order Comment: No: D o not add to previous draw Performed By: #### 5 6101, 82377, 66316, 88272, 34731, 41711, 30587 #### [facility] [address] [place] [address], [place] Potassium [Moles/Vol] 3.7 mmol/L Normal 3.5-5.1 [facility] Comment on above: Order Comment: No: D o not add to previous draw Performed By: #### 5 6101, 60893, 73873, 08599, 57468, 76221, 15945 #### [facility] [address] [place] [address], [place] Sodium [Moles/Vol] 129 mmol/L Low 136-145 [facility] Comment on above: Order Comment: No: D o not add to previous draw Performed By: #### 5 6101, 19598, 51942, 98276, 48360, 48718, 89366 #### [facility] [address] [place] [address], [facility] Urea nitrogen [Mass/Vol] 5 mg/dL Low 7-25 [facility] Comment on above: Order Comment: No: D o not add to previous draw Performed By: #### 5 6101, 36087, 83955, 92996, 91708, 71190, 38954 #### [facility] [address] [place] [address], [facility] CBC COMPLETE BLOOD COUNTon 1 01-08-2019 Erythrocyte distribution width (RBC) [Ratio] 16.0 % High 11.5-15.0 [facility] Comment on above: Order Comment: No: D o not add to previous draw Performed By: #### 5 6101, 15979, 05610, 91754, 83925, 09910, 58674 #### [facility] [address] [place] [address], [facility] Hematocrit (Bld) [Volume fraction] 20.8 % Low 39.0-50.0 [facility] Comment on above: Order Comment: No: D o not add to previous draw Performed By: #### 5 6101, 01367, 29435, 08759, 82534, 33375, 78505 #### [facility] [address] [place] [address], [facility] Hemoglobin (Bld) [Mass/Vol] 6.9 g/dL Low 13.0-17.0 [facility] Comment on above: Order Comment: No: D o not add to previous draw Performed By: #### 5 6101, 32215, 23833, 68090, 20624, 92288, 42894 #### [facility] [address] [place] [address], [facility] MCH (RBC) [Entitic mass] 30.5 pg Normal 27.0-33.0 [facility] Comment on above: Order Comment: No: D o not add to previous draw Performed By: #### 5 6101, 32304, 33402, 80853, 32090, 59875, 15953 #### [facility] [address] [place] [address], [facility] MCHC (RBC) [Mass/Vol] 33.2 g/dL Normal 32.0-35.0 [facility] Comment on above: Order Comment: No: D o not add to previous draw Performed By: #### 5 6101, 71301, 88332, 39102, 54510, 78155, 89544 #### [facility] [address] [place] [address], [facility] MCV (RBC) [Entitic vol] 92.0 fL Normal 82.0-98.0 [facility] Comment on above: Order Comment: No: D o not add to previous draw Performed By: #### 5 6101, 70470, 30927, 01348, 45671, 58640, 70372 #### [facility] [address] [facility] [place] [address], [facility] Nucleated RBC/100 WBC (Bld) [Ratio] 0 % Normal 0-0 [facility] Comment on above: Order Comment: No: D o not add to previous draw Performed By: #### 5 6101, 75101, 20545, 49925, 48084, 04110, 22886 #### [facility] [address] [place] [address], [facility] PLAT CNT 447 10*3/uL High 150-400 [facility] Comment on above: Order Comment: No: D o not add to previous draw Performed By: #### 5 6101, 90288, 59401, 48513, 51090, 26047, 97118 #### [facility] [address] [place] [address], [facility] RBC (Bld) [#/Vol] 2.26 10*6/uL Low 4.20-5.70 [facility] Comment on above: Order Comment: No: D o not add to previous draw Performed By: #### 5 6101, 49732, 91562, 98713, 68613, 77323, 69185 #### [facility] [address] [place] [address], [facility] WBC (Bld) [#/Vol] 13.25 10*3/uL High 4.00-10.60 [facility] Comment on above: Order Comment: No: D o not add to previous draw Performed By: #### 5 6101, 35604, 19872, 14723, 55137, 05890, 90618 #### [facility] [address] [facility] MAGNESIUM BLOODon 11-07-2019 Magnesium [Mass/Vol] 1.7 mg/dL Low 1.9-2.7 [facility] Comment on above: Order Comment: No: D o not add to previous draw Performed By: #### 1 0054 #### [facility] [address] [facility]. [address] RBC'S 1 UNITon 11-07-2019 CROSSMATCH INTERP 1 COMP Normal The [facility] Comment on above: Performed By: #### 1 0054 #### [facility] [address] [facility]. [address] PRODUCT CODE 1 [id number] Normal The [facility] Comment on above: Performed By: #### 1 0054 #### [facility] [address] [facility]. [address] PRODUCT STATUS 1 PT Normal The [facility] Comment on above: Result Comment: Resu lt changed by IF on 11/07/2019 11:05. The previous value was XM. Result changed by IF on 11/08/2019 00:30. The previous value was IS. Performed By: #### 1 0054 #### [facility] [address] [place] [address], [facility] UNIT ABO 1 O Normal [facility] Comment on above: Performed By: #### 1 0054 #### [facility] [address] [place] [address], [place] UNIT ID 1 [id number] Normal The [facility] Comment on above: Performed By: #### 1 0054 #### [facility] [address] [place] [address], [facility] UNIT RH 1 Positive Normal [facility] Comment on above: Performed By: #### 1 0054 #### [facility] [address] [place] [address], [place] TYPE AND SCREENon 11-07-2019 ABO INTERPRETATION O Normal The [facility] Comment on above: Performed By: #### 1 0054 #### [facility] [address] [place] [address], [facility] RH INTERPRETATION Positive Normal The [facility] Comment on above: Performed By: #### 1 0054 #### [facility] [address] [place] [address], [facility] CBC COMPLETE BLOOD COUNTon 1 01-07-2019 Erythrocyte distribution width (RBC) [Ratio] 15.9 % High 11.5-15.0 [facility] Comment on above: Order Comment: No: D o not add to previous draw Performed By: #### 5 6101, 48167, 83678, 45606, 25977, 42987, 69005 #### [facility] [address] [place] [address], [facility] Hematocrit (Bld) [Volume fraction] 21.3 % Low 39.0-50.0 [facility] Comment on above: Order Comment: No: D o not add to previous draw Performed By: #### 5 6101, 80755, 24825, 97937, 55049, 99697, 40037 #### [facility] [address] [place] [address], [facility] Hemoglobin (Bld) [Mass/Vol] 7.1 g/dL Low 13.0-17.0 [facility] Comment on above: Order Comment: No: D o not add to previous draw Performed By: #### 5 6101, 94850, 54480, 52819, 24143, 92622, 07918 #### [facility] [address] [place] [address], [facility] MCH (RBC) [Entitic mass] 30.7 pg Normal 27.0-33.0 [facility] Comment on above: Order Comment: No: D o not add to previous draw Performed By: #### 5 6101, 75797, 58233, 87338, 82377, 30451, 25043 #### [facility] [address] [facility] MCHC (RBC) [Mass/Vol] 33.3 g/dL Normal 32.0-35.0 [facility] Comment on above: Order Comment: No: D o not add to previous draw Performed By: #### 5 6101, 89195, 41382, 16937, 71783, 78324, 80941 #### [facility] [address] [facility] [place] [address], [facility] MCV (RBC) [Entitic vol] 92.2 fL Normal 82.0-98.0 [facility] Comment on above: Order Comment: No: D o not add to previous draw Performed By: #### 5 6101, 70434, 43899, 19730, 39136, 59474, 45573 #### [facility] [address] [facility] [place] [address], [facility] Nucleated RBC/100 WBC (Bld) [Ratio] 0 % Normal 0-0 [facility] Comment on above: Order Comment: No: D o not add to previous draw Performed By: #### 5 6101, 65946, 60750, 16041, 98822, 07669, 48316 #### [facility] [address] [place] [address], [facility] PLAT CNT 387 10*3/uL Normal 150-400 The [facility] Comment on above: Order Comment: No: D o not add to previous draw Performed By: #### 5 6101, 83294, 07563, 58763, 84666, 06670, 72466 #### [facility] [address] [place] [address], [facility] RBC (Bld) [#/Vol] 2.31 10*6/uL Low 4.20-5.70 [facility] Comment on above: Order Comment: No: D o not add to previous draw Performed By: #### 5 6101, 58045, 39770, 83191, 56411, 22530, 31388 #### [facility] [address] [place] [address], [facility] WBC (Bld) [#/Vol] 17.49 10*3/uL High 4.00-10.60 [facility] Comment on above: Order Comment: No: D o not add to previous draw Performed By: #### 5 6101, 80040, 51056, 00408, 71110, 38674, 17504 #### [facility] [address] [facility] [place] [id number], [facility] COMP METABOLIC PANELon 11-06 Albumin [Mass/Vol] 2.0 g/dL Low 3.5-5.7 [facility] Comment on above: Order Comment: No: D o not add to previous draw Performed By: #### 5 6101, 05677, 79331, 78090, 81567, 67881, 42202 #### [facility] [address] [place] [id number], [facility] ALKALINE PHOSPH 147 IU/L High 34-104 [facility] Comment on above: Order Comment: No: D o not add to previous draw Performed By: #### 5 6101, 95192, 40983, 25887, 85294, 47022, 81855 #### [facility] [address] [place] [address], [place] ALT [Catalytic activity/Vol] 13 U/L Normal 7-52 [facility] Comment on above: Order Comment: No: D o not add to previous draw Performed By: #### 5 6101, 04587, 54045, 81674, 36447, 76259, 17188 #### [facility] [address] [place] [address], [place] AST [Catalytic activity/Vol] 14 U/L Normal 13-39 [facility] Comment on above: Order Comment: No: D o not add to previous draw Performed By: #### 5 6101, 16856, 31777, 74229, 81665, 12843, 63604 #### [facility] [address] [place] [address], [place] Bilirubin [Mass/Vol] 1.3 mg/dL High 0.3-1.0 [facility] Comment on above: Order Comment: No: D o not add to previous draw Performed By: #### 5 6101, 07788, 05968, 44246, 49149, 22644, 93540 #### [facility] [address] [place] [address], [place] Calcium [Mass/Vol] 7.5 mg/dL Low 8.6-10.3 [facility] Comment on above: Order Comment: No: D o not add to previous draw Performed By: #### 5 6101, 23292, 77369, 42667, 93326, 13735, 22482 #### [facility] [address] [place] [address], [place] Chloride [Moles/Vol] 99 mmol/L Normal 98-107 [facility] Comment on above: Order Comment: No: D o not add to previous draw Performed By: #### 5 6101, 69577, 72142, 27099, 68062, 57835, 23134 #### [facility] [address] [place] [address], [facility] CO2 [Moles/Vol] 26 mmol/L Normal 21-31 [facility] Comment on above: Order Comment: No: D o not add to previous draw Performed By: #### 5 6101, 24821, 89188, 71821, 32621, 39733, 43404 #### [facility] [address] [place] [address], [facility] Creatinine [Mass/Vol] 0.40 mg/dL Low 0.70-1.30 [facility] Comment on above: Order Comment: No: D o not add to previous draw Performed By: #### 5 6101, 41369, 83729, 39066, 78130, 90252, 52336 #### [facility] [address] [place] [address], [facility] GFR/1.73 sq M predicted among blacks MDRD (S/P/Bld) [Vol rate/Area] mL/min/{1.73_m2} Normal >60 [facility] Comment on above: Order Comment: No: D o not add to previous draw Performed By: #### 5 6101, 05511, 08149, 92256, 78635, 54095, 73377 #### [facility] [address] [place] [address], [facility] GFR/1.73 sq M predicted among non-blacks MDRD (S/P/Bld) [Vol rate/Area] mL/min/{1.73_m2} Normal >60 [facility] Comment on above: Order Comment: No: D o not add to previous draw Performed By: #### 5 6101, 03078, 10924, 58928, 96155, 46871, 90652 #### [facility] [address] [place] [address], [place] Glucose [Mass/Vol] 86 mg/dL Normal 70-100 The [facility] Comment on above: Order Comment: No: D o not add to previous draw Performed By: #### 5 6101, 61309, 01463, 77505, 40954, 00152, 98498 #### [facility] [address] [place] [address], [place] Potassium [Moles/Vol] 4.0 mmol/L Normal 3.5-5.1 [facility] Comment on above: Order Comment: No: D o not add to previous draw Performed By: #### 5 6101, 43801, 32385, 44314, 30553, 70907, 73507 #### [facility] [address] [place] [address], [facility] Protein [Mass/Vol] 4.8 g/dL Low 6.0-8.3 [facility] Comment on above: Order Comment: No: D o not add to previous draw Performed By: #### 5 6101, 13239, 01074, 73432, 39206, 47514, 34017 #### [facility] [address] [place] [address], [place] Sodium [Moles/Vol] 130 mmol/L Low 136-145 [facility] Comment on above: Order Comment: No: D o not add to previous draw Performed By: #### 5 6101, 02706, 32478, 75257, 71079, 69620, 36267 #### [facility] [address] [place] [address], [place] Urea nitrogen [Mass/Vol] 5 mg/dL Low 7-25 [facility] Comment on above: Order Comment: No: D o not add to previous draw Performed By: #### 5 6101, 32225, 00514, 18917, 46221, 25357, 12658 #### [facility] [address] MAGNESIUM BLOODon 11-06-2019 Magnesium [Mass/Vol] 1.8 mg/dL Low 1.9-2.7 [facility] Comment on above: Order Comment: No: D o not add to previous draw Performed By: #### 5 6101, 51150, 69096, 40008, 74484, 60024, 62957 #### [facility] [address] *C DIFF DNA AMPLIFICATIONon 11-05-2019 *C DIFF DNA AMPLIFICATION Clinical Report: (D) Specimen: [id number] Collected: 11/05/2019 15:19 Status: Final Last Updated: 11/05/2019 16:45 (1) No: Do not add to previous draw CDT DNA: (Final) Negative Normal [facility] Comment on above: Order Comment: No: D o not add to previous draw Performed By: #### 5 6101, 49677, 33732, 95862, 90181, 50398, 53949 #### [facility] [address] *WOUND CULTUREon 11-05-2019 *WOUND CULTURE Clinical [...] <=1 Susceptible CEFAZOLIN (CZ) <=1 Susceptible CEFTRIAXONE (CANDY COUNTER CLERK) <=0.5 Susceptible CIPROFLOXACIN (CIP) <=0.5 Susceptible ESBL (-/+) (ESBL) Negative GENTAMICIN (GM) <=1 Susceptible PIP/TAZO (TZP) <=2/4 Susceptible TOBRAMYCIN (TOB) 1 Susceptible TRIMETH/SULFA (SXT) <=0.5/9.5 Susceptible Normal [facility] Comment on above: Order Comment: No: D o not add to previous draw Performed By: #### 5 6101, 84683, 37348, 59014, 67922, 44384, 68949 #### [facility] [address] [place] [address], [facility] BASIC METABOLIC PANELon 12-0 Calcium [Mass/Vol] 7.6 mg/dL Low 8.6-10.3 [facility] Comment on above: Order Comment: No: D o not add to previous draw Performed By: #### 5 6101, 68403, 34049, 78802, 47847, 83384, 07175 #### [facility] [address] [place] [address], [facility] Chloride [Moles/Vol] 97 mmol/L Low 98-107 [facility] Comment on above: Order Comment: No: D o not add to previous draw Performed By: #### 5 6101, 32114, 59013, 42653, 87792, 41485, 02182 #### [facility] [address] [place] [address], [facility] CO2 [Moles/Vol] 26 mmol/L Normal 21-31 [facility] Comment on above: Order Comment: No: D o not add to previous draw Performed By: #### 5 6101, 09838, 96122, 55658, 85875, 01739, 26384 #### [facility] [address] [place] [address], [place] Creatinine [Mass/Vol] 0.35 mg/dL Low 0.70-1.30 [facility] Comment on above: Order Comment: No: D o not add to previous draw Performed By: #### 5 6101, 09934, 36063, 85858, 42738, 77091, 55199 #### [facility] [address] [place] [address], [facility] GFR/1.73 sq M predicted among blacks MDRD (S/P/Bld) [Vol rate/Area] mL/min/{1.73_m2} Normal >60 [facility] Comment on above: Order Comment: No: D o not add to previous draw Performed By: #### 5 6101, 64853, 57444, 72972, 74481, 29355, 57185 #### [facility] [address] [place] [address], [facility] GFR/1.73 sq M predicted among non-blacks MDRD (S/P/Bld) [Vol rate/Area] mL/min/{1.73_m2} Normal >60 [facility] Comment on above: Order Comment: No: D o not add to previous draw Performed By: #### 5 6101, 15117, 37129, 99063, 28192, 82952, 36594 #### [facility] [address] [place] [address], [facility] Glucose [Mass/Vol] 98 mg/dL Normal 70-100 [facility] Comment on above: Order Comment: No: D o not add to previous draw Performed By: #### 5 6101, 62874, 64443, 16896, 84153, 62297, 88323 #### [facility] [address] [place] [address], [facility] Potassium [Moles/Vol] 3.8 mmol/L Normal 3.5-5.1 [facility] Comment on above: Order Comment: No: D o not add to previous draw Performed By: #### 5 6101, 60426, 28261, 79078, 09945, 70618, 06216 #### [facility] [address] [place] [address], [place] Sodium [Moles/Vol] 129 mmol/L Low 136-145 [facility] Comment on above: Order Comment: No: D o not add to previous draw Performed By: #### 5 6101, 20005, 31722, 28824, 52198, 78369, 44792 #### [facility] [address] [place] [address], [facility] Urea nitrogen [Mass/Vol] 5 mg/dL Low 7-25 [facility] Comment on above: Order Comment: No: D o not add to previous draw Performed By: #### 5 6101, 56465, 46158, 95618, 06012, 62011, 21592 #### [facility] [address] CBC COMPLETE BLOOD COUNTon 1 01-06-2019 Erythrocyte distribution width (RBC) [Ratio] 15.5 % High 11.5-15.0 [facility] Comment on above: Order Comment: No: D o not add to previous draw Performed By: #### 5 6101, 40976, 11391, 21792, 01247, 68507, 81295 #### [facility] [address] Hematocrit (Bld) [Volume fraction] 22.4 % Low 39.0-50.0 [facility] Comment on above: Order Comment: No: D o not add to previous draw Performed By: #### 5 6101, 89088, 68585, 24174, 08180, 25448, 64170 #### [facility] [address] [place] [id number], [facility] Hemoglobin (Bld) [Mass/Vol] 7.5 g/dL Low 13.0-17.0 [facility] Comment on above: Order Comment: No: D o not add to previous draw Performed By: #### 5 6101, 90823, 57707, 85469, 39736, 79750, 81761 #### [facility] [address] [place] [address], [facility] MCH (RBC) [Entitic mass] 31.0 pg Normal 27.0-33.0 [facility] Comment on above: Order Comment: No: D o not add to previous draw Performed By: #### 5 6101, 22791, 57053, 91769, 27721, 18746, 48434 #### [facility] [address] [facility]. [address] MCHC (RBC) [Mass/Vol] 33.5 g/dL Normal 32.0-35.0 [facility] Comment on above: Order Comment: No: D o not add to previous draw Performed By: #### 5 6101, 76961, 52259, 92513, 46961, 45370, 66669 #### [facility] [address] [facility]. [address] MCV (RBC) [Entitic vol] 92.6 fL Normal 82.0-98.0 The [facility] Comment on above: Order Comment: No: D o not add to previous draw Performed By: #### 5 [id number], 02734, 03693, 84322, 87440, 81917, 41700 #### [facility] [address] [facility]. [address] Nucleated RBC/100 WBC (Bld) [Ratio] 0 % Normal 0-0 The [facility] Comment on above: Order Comment: No: D o not add to previous draw Performed By: #### 5 [id number], 03700, 62570, 22531, 87428, 21949, 44292 #### [facility] [address] [facility]. [address] PLAT CNT 350 10*3/uL Normal 150-400 The [facility] Comment on above: Order Comment: No: D o not add to previous draw Performed By: #### 5 [id number], 09374, 17024, 25628, 45509, 57642, 53591 #### [facility] [facility] [address] RBC (Bld) [#/Vol] 2.42 10*6/uL Low 4.20-5.70 [facility] Comment on above: Order Comment: No: D o not add to previous draw Performed By: #### 5 6101, 25438, 76693, 83243, 63043, 66467, 88969 #### [facility] [address] WBC (Bld) [#/Vol] 20.11 10*3/uL High 4.00-10.60 The [facility] Comment on above: Order Comment: No: D o not add to previous draw Performed By: #### 5 6101, 65063, 86173, 37649, 06886, 83084, 43006 #### [facility] [address] CHEST AND LATERALon 11-05-20 CHEST AND LATERAL [facility] Department of Radiology [address] [place], [place] [address] ======== Patient Name: MIGUEL BARON : 1960 Sex: M Age: Race: White Pt. Location: [address] [place] [address] Patient Status: I Ordered Date: 11/04/2019 1:35:00 [...] findings. Electronically signed by:Ramandeep Mai. Transcribed by: [email or web address], User Resident: JACINTO JONES Electronically Signed by: RAMANDEEP MAI @ 11/07/2019 09:28 AM I personally read this/these film(s) with this resident Normal The [facility] Comment on above: Order Comment: No: D o not add to previous draw CT ABDOMEN AND PELVIS W IV C ONTRASTon 11-05-2019 CT ABDOMEN AND PELVIS W IV CONTRAST [facility] Department of Radiology [address] [place] [id number] ======== Patient Name: MIGUEL BARON : 1960 Sex: M Age: Race: White Pt. Location: [id number] Patient Status: I Ordered Date: 11/05/2019 2:25:00 [...] findings. Electronically signed by:Ramandeep Mai. Transcribed by: [email or web address], User Resident: JACINTO JONES Electronically Signed by: RAMANDEEP MAI @ 11/06/2019 08:15 AM I personally read this/these film(s) with this resident Normal [facility] Comment on above: Order Comment: Other , r/o intra-abdominal abscess/fluid collection MAGNESIUM BLOODon 11-05-2019 Magnesium [Mass/Vol] 1.9 mg/dL Normal 1.9-2.7 [facility] Comment on above: Order Comment: No: D o not add to previous drawPt using restroom. Performed By: #### 5 6101, 22195, 95513, 88155, 36374, 40515, 54363 #### [facility] [address] [place] [address], [facility] URINALYSIS REFLEXon 11-05-20 19 Appearance (U) SL CLOUDY Abnormal CLEAR The [facility] Comment on above: Order Comment: No: D o not add to previous drawCriteria for reflexing a culture was not met. Please call the lab [email or web address] within 24 hours of collection time if culture is needed Performed By: #### 5 6101, 40774, 69561, 55857, 59763, 95202, 36526 #### [facility] [address] [place] [address], [facility] Bilirubin [Mass/Vol] Negative Normal NEGATIVE The [facility] Comment on above: Order Comment: No: D o not add to previous drawCriteria for reflexing a culture was not met. Please call the lab [id number] within 24 hours of collection time if culture is needed Performed By: #### 5 6101, 92790, 20085, 25258, 99459, 51170, 58426 #### [facility] [address] [place] [address], [facility] BLOOD Negative Normal NEGATIVE The [facility] Comment on above: Order Comment: No: D o not add to previous drawCriteria for reflexing a culture was not met. Please call the lab [id number] within 24 hours of collection time if culture is needed Performed By: #### 5 6101, 83369, 47579, 02996, 24638, 28915, 53368 #### [facility] [address] [place] [address], [place] Color (U) BELLA Abnormal YELLOW [facility] Comment on above: Order Comment: No: D o not add to previous drawCriteria for reflexing a culture was not met. Please call the lab [id number] within 24 hours of collection time if culture is needed Performed By: #### 5 6101, 51961, 77530, 81028, 10900, 01218, 46904 #### [facility] [address] [place] [address], [place] EPIS NONE SEEN Normal FEW,OCC,NONE SEEN [facility] Comment on above: Order Comment: No: D o not add to previous drawCriteria for reflexing a culture was not met. Please call the lab [email or web address] within 24 hours of collection time if culture is needed Performed By: #### 5 6101, 62190, 88458, 19073, 51730, 91978, 26409 #### [facility] [address] [place] [address], [place] Glucose [Mass/Vol] Negative Normal NEGATIVE The [facility] Comment on above: Order Comment: No: D o not add to previous drawCriteria for reflexing a culture was not met. Please call the lab [email or web address] within 24 hours of collection time if culture is needed Performed By: #### 5 6101, 87858, 89609, 01613, 80952, 45115, 41504 #### [facility] [address] [place] [address], [facility] KETONE Negative Normal NEGATIVE The [facility] Comment on above: Order Comment: No: D o not add to previous drawCriteria for reflexing a culture was not met. Please call the lab [email or web address] within 24 hours of collection time if culture is needed Performed By: #### 5 6101, 21124, 59500, 68071, 56012, 47265, 51469 #### [facility] [address] [facility] [place] [address], [facility] LEUK ODALIS Negative Normal NEGATIVE [facility] Comment on above: Order Comment: No: D o not add to previous drawCriteria for reflexing a culture was not met. Please call the lab [email or web address] within 24 hours of collection time if culture is needed Performed By: #### 5 6101, 39045, 65834, 43032, 16788, 12951, 71523 #### [facility] [address] [facility] [place] [address], [facility] MUCUS THREADS MANY Abnormal NONE SEEN The [facility] Comment on above: Order Comment: No: D o not add to previous drawCriteria for reflexing a culture was not met. Please call the lab [id number] within 24 hours of collection time if culture is needed Performed By: #### 5 6101, 14322, 59727, 73314, 60244, 70103, 47689 #### [facility] [address] [place] [address], [facility] Nitrite Ql (U) Negative Normal NEGATIVE The [facility] Comment on above: Order Comment: No: D o not add to previous drawCriteria for reflexing a culture was not met. Please call the lab [id number] within 24 hours of collection time if culture is needed Performed By: #### 5 6101, 94722, 01508, 32981, 52263, 94672, 04071 #### [facility] [address] [place] [address], [facility] pH (Bld) 6.0 Normal 5.0-8.0 The [facility] Comment on above: Order Comment: No: D o not add to previous drawCriteria for reflexing a culture was not met. Please call the lab [email or web address] within 24 hours of collection time if culture is needed Performed By: #### 5 6101, 27188, 00544, 42972, 63495, 12187, 90407 #### [facility] [address] [place] [address], [facility] Protein (U) [Mass/Vol] Negative Normal NEGATIVE [facility] Comment on above: Order Comment: No: D o not add to previous drawCriteria for reflexing a culture was not met. Please call the lab [id number] within 24 hours of collection time if culture is needed Performed By: #### 5 6101, 91202, 66461, 48234, 01463, 71177, 93275 #### [facility] [address] [facility] [address], [facility] RBC (U) [#/Vol] NONE SEEN Normal NONE SEEN The [facility] Comment on above: Order Comment: No: D o not add to previous drawCriteria for reflexing a culture was not met. Please call the lab [id number] within 24 hours of collection time if culture is needed Performed By: #### 5 6101, 68067, 43829, 43697, 96793, 61163, 85252 #### [facility] [address] [place] [address], [place] SPEC GRAV 1.016 Normal 1.015-1.020 The [facility] Comment on above: Order Comment: No: D o not add to previous drawCriteria for reflexing a culture was not met. Please call the lab [id number] within 24 hours of collection time if culture is needed Performed By: #### 5 6101, 36635, 31168, 80410, 25117, 85754, 80442 #### [facility] 3000 [facility]. [address] WBC UA 0-2 Abnormal NONE SEEN The [facility] Comment on above: Order Comment: No: D o not add to previous drawCriteria for reflexing a culture was not met. Please call the lab [id number] within 24 hours of collection time if culture is needed Performed By: #### 5 6101, 25836, 87151, 51102, 40919, 51070, 12519 #### [facility] 3000 [facility]. [address] *BLOOD CULTUREon 11-04-2019 Bacteria identified Cx Nom (Bld) Clinical Report: (D) Specimen: BLOOD CULTURE Collected: 11/04/2019 13:45 Status: Final Last Updated: 11/10/2019 07:39 CULT RES (Final) No Growth Day 5 Normal [facility] Comment on above: Performed By: #### 5 6101, 40167, 67926, 15600, 95171, 39372, 93061 #### [facility] [address] [facility]. [address] CBC W/DIFFon 11-04-2019 ABS BASOPHILS 0.0 10*3/uL Normal 0.0-0.2 The [facility] Comment on above: Performed By: #### 5 6101, 14214, 14034, 11597, 18144, 20640, 94244 #### [facility] [address] [facility]. [address] ABS NEUTROPHILS 16.3 10*3/uL High 1.6-7.6 The [facility] Comment on above: Performed By: #### 5 6101, 56956, 65281, 79458, 74380, 70125, 98596 #### [facility] 3000 [facility]. [address] ANISO Moderate Normal [facility] Comment on above: Performed By: #### 5 6101, 45120, 01298, 27451, 25895, 23613, 53414 #### [facility] [address] [place] [address], [facility] Basophils/100 WBC (Bld) 0.0 % Normal 0.0-1.0 The [facility] Comment on above: Performed By: #### 5 6101, 79130, 07162, 01197, 26356, 65213, 84461 #### [facility] 3000 [facility]. [address] DOHLE BODIES Slight Normal The [facility] Comment on above: Performed By: #### 5 6101, 68202, 60049, 43457, 31631, 58080, 60041 #### [facility] 3000 [facility]. [address] Eosinophils (Bld) [#/Vol] 0.0 10*3/uL Normal 0.0-0.5 The [facility] Comment on above: Performed By: #### 5 6101, 46191, 06492, 38712, 32613, 58046, 81981 #### [facility] [address] [facility] [address], [facility] Eosinophils/100 WBC (Bld) 0.0 % Normal 0.0-6.0 The [facility] Comment on above: Performed By: #### 5 6101, 23721, 72993, 47295, 66373, 38666, 78195 #### [facility] [address] [facility]. [address] Erythrocyte distribution width (RBC) [Ratio] 15.6 % High 11.5-15.0 [facility] Comment on above: Performed By: #### 5 6101, 85398, 83150, 97482, 23017, 84655, 63324 #### [facility] [address] [facility] [address], [facility] GIANT PLATELETS Present Normal The [facility] Comment on above: Performed By: #### 5 6101, 64727, 70400, 45607, 00977, 86621, 68708 #### [facility] [address] [facility] [address] Hematocrit (Bld) [Volume fraction] 21.1 % Low 39.0-50.0 The [facility] Comment on above: Performed By: #### 5 6101, 88446, 03215, 83469, 89408, 61095, 84708 #### [facility] [address] [facility] [address] Hemoglobin (Bld) [Mass/Vol] 7.1 g/dL Low 13.0-17.0 The [facility] Comment on above: Performed By: #### 5 6101, 67702, 40078, 10196, 15859, 91284, 83381 #### [facility] [address] [facility] [address] Lymphocytes (Bld) [#/Vol] 0.5 10*3/uL Low 1.2-4.0 The [facility] Comment on above: Performed By: #### 5 6101, 50102, 79675, 08992, 47008, 97872, 43568 #### [facility] 3000 [facility]. [address] Lymphocytes/100 WBC (Bld) 2.7 % Low 20.0-45.0 The [facility] Comment on above: Performed By: #### 5 6101, 91221, 39443, 00161, 27270, 73696, 98062 #### [facility] [address] [facility] [address], [facility] MCH (RBC) [Entitic mass] 30.9 pg Normal 27.0-33.0 The [facility] Comment on above: Performed By: #### 5 6101, 61423, 86887, 24323, 00532, 58295, 00188 #### [facility] [address] MCHC (RBC) [Mass/Vol] 33.6 g/dL Normal 32.0-35.0 The [facility] Comment on above: Performed By: #### 5 6101, 59881, 42299, 00116, 38081, 39372, 09227 #### [facility] [address] [place] [address], [facility] MCV (RBC) [Entitic vol] 91.7 fL Normal 82.0-98.0 The [facility] Comment on above: Performed By: #### 5 6101, 67151, 90681, 18769, 43681, 04765, 46606 #### [facility] [address] [place] [address], [facility] Monocytes (Bld) [#/Vol] 1.9 10*3/uL High 0.1-1.0 The [facility] Comment on above: Performed By: #### 5 6101, 63548, 51842, 30657, 48930, 85672, 46491 #### [facility] 3000 [facility]. [address] MONOS 10.1 % Normal 5.0-12.0 The [facility] Comment on above: Performed By: #### 5 6101, 62443, 09290, 95559, 20773, 08927, 46612 #### [facility] [address] [facility] [address], [facility] Neutrophils/100 WBC (Bld) 87.2 % High 40.0-72.0 The [facility] Comment on above: Performed By: #### 5 6101, 90195, 72389, 08685, 98210, 49433, 83334 #### [facility] [address] [facility] [address], [facility] Nucleated RBC/100 WBC (Bld) [Ratio] 0 % Normal 0-0 The [facility] Comment on above: Performed By: #### 5 6101, 67816, 30205, 82721, 03336, 92822, 12131 #### [facility] 3000 [facility]. [address] PLAT CNT 304 10*3/uL Normal 150-400 The [facility] Comment on above: Performed By: #### 5 6101, 59982, 63229, 96868, 74994, 19518, 04991 #### [facility] 3000 [facility]. [address] POIK Moderate Normal The [facility] Comment on above: Performed By: #### 5 6101, 13972, 33872, 93342, 08547, 38499, 98391 #### [facility] 3000 [facility]. [address] POLY Slight Normal The [facility] Comment on above: Performed By: #### 5 6101, 78583, 43390, 04833, 19487, 08779, 16155 #### [facility] 3000 [facility]. [address] RBC (Bld) [#/Vol] 2.30 10*6/uL Low 4.20-5.70 [facility] Comment on above: Performed By: #### 5 6101, 82195, 34635, 85248, 47673, 30730, 38346 #### [facility] 3000 [facility]. [address] TARGET CELLS Moderate Normal The [facility] Comment on above: Performed By: #### 5 6101, 43276, 50774, 16839, 02696, 04054, 54770 #### [facility] 3000 [facility]. [address] TOXIC GRANULATION Moderate Normal The [facility] Comment on above: Performed By: #### 5 6101, 65099, 23675, 20145, 62113, 42250, 44733 #### [facility] [address] [place] [address], [facility] WBC (Bld) [#/Vol] 18.67 10*3/uL High 4.00-10.60 [facility] Comment on above: Performed By: #### 5 6101, 97101, 84893, 62671, 57947, 69884, 78408 #### [facility] [address] [place] [address], [facility] COMP METABOLIC PANELon 11-04 Albumin [Mass/Vol] 2.1 g/dL Low 3.5-5.7 [facility] Comment on above: Order Comment: No: D o not add to previous draw Performed By: #### 5 6101, 42156, 42320, 58433, 17195, 78883, 16216 #### [facility] [address] [facility] [address] ALKALINE PHOSPH 153 IU/L High 34-104 [facility] Comment on above: Order Comment: No: D o not add to previous draw Performed By: #### 5 6101, 03632, 36530, 17041, 89617, 73547, 18594 #### [facility] [address] ALT [Catalytic activity/Vol] 16 U/L Normal 7-52 The [facility] Comment on above: Order Comment: No: D o not add to previous draw Performed By: #### 5 6101, 35956, 80481, 15764, 90681, 54346, 09561 #### [facility] [address] [place] [address], [facility] AST [Catalytic activity/Vol] 14 U/L Normal 13-39 The [facility] Comment on above: Order Comment: No: D o not add to previous draw Performed By: #### 5 6101, 76700, 19221, 27523, 42252, 63446, 94677 #### [facility] [address] [place] [address], [place] Bilirubin [Mass/Vol] 1.6 mg/dL High 0.3-1.0 The [facility] Comment on above: Order Comment: No: D o not add to previous draw Performed By: #### 5 6101, 21651, 61085, 41059, 97425, 44646, 12611 #### [facility] [address] [place] [address], [place] Calcium [Mass/Vol] 7.5 mg/dL Low 8.6-10.3 [facility] Comment on above: Order Comment: No: D o not add to previous draw Performed By: #### 5 6101, 41756, 24138, 80538, 17220, 53212, 00077 #### [facility] [address] [place] [address], [place] Chloride [Moles/Vol] 97 mmol/L Low 98-107 [facility] Comment on above: Order Comment: No: D o not add to previous draw Performed By: #### 5 6101, 91041, 08455, 21099, 45269, 57168, 52189 #### [facility] [address] [place] [address], [place] CO2 [Moles/Vol] 26 mmol/L Normal 21-31 [facility] Comment on above: Order Comment: No: D o not add to previous draw Performed By: #### 5 6101, 27856, 63320, 94722, 86134, 34741, 85465 #### [facility] [address] [place] [address], [place] Creatinine [Mass/Vol] 0.40 mg/dL Low 0.70-1.30 The [facility] Comment on above: Order Comment: No: D o not add to previous draw Performed By: #### 5 6101, 94517, 83037, 41385, 86112, 86748, 07624 #### [facility] [address] [place] [address], [place] GFR/1.73 sq M predicted among blacks MDRD (S/P/Bld) [Vol rate/Area] mL/min/{1.73_m2} Normal >60 The [facility] Comment on above: Order Comment: No: D o not add to previous draw Performed By: #### 5 6101, 29313, 98525, 79988, 82859, 33429, 95156 #### [facility] [address] [place] [address], [place] GFR/1.73 sq M predicted among non-blacks MDRD (S/P/Bld) [Vol rate/Area] mL/min/{1.73_m2} Normal >60 The [facility] Comment on above: Order Comment: No: D o not add to previous draw Performed By: #### 5 6101, 61871, 25969, 19019, 89718, 23841, 49006 #### [facility] [address] [place] [address], [place] Glucose [Mass/Vol] 88 mg/dL Normal 70-100 The [facility] Comment on above: Order Comment: No: D o not add to previous draw Performed By: #### 5 6101, 66682, 59010, 03743, 98237, 91101, 28276 #### [facility] [address] [place] [address], [place] Potassium [Moles/Vol] 4.0 mmol/L Normal 3.5-5.1 The [facility] Comment on above: Order Comment: No: D o not add to previous draw Performed By: #### 5 6101, 71321, 61765, 27349, 48947, 41139, 21050 #### [facility] [address] [place] [address], [place] Protein [Mass/Vol] 4.8 g/dL Low 6.0-8.3 The [facility] Comment on above: Order Comment: No: D o not add to previous draw Performed By: #### 5 6101, 07027, 37404, 41594, 60592, 10026, 24608 #### [facility] [address] [place] [address], [facility] Sodium [Moles/Vol] 128 mmol/L Low 136-145 The [facility] Comment on above: Order Comment: No: D o not add to previous draw Performed By: #### 5 6101, 93341, 44217, 84544, 27659, 73547, 99152 #### [facility] [address] [place] [address], [facility] Urea nitrogen [Mass/Vol] 5 mg/dL Low 7-25 [facility] Comment on above: Order Comment: No: D o not add to previous draw Performed By: #### 5 6101, 27774, 81432, 84629, 39651, 57495, 78410 #### [facility] [address] [place] [address], [facility] MAGNESIUM BLOODon 11-04-2019 Magnesium [Mass/Vol] 1.7 mg/dL Low 1.9-2.7 The [facility] Comment on above: Order Comment: No: D o not add to previous draw Performed By: #### 5 6101, 17785, 74504, 82393, 41610, 00848, 01679 #### [facility] [address] [place] [address], [facility] PHOSPHORUS BLOODon 9 Phosphate [Mass/Vol] 2.7 mg/dL Normal 2.5-5.0 The [facility] Comment on above: Order Comment: No: D o not add to previous draw Performed By: #### 5 6101, 01568, 69369, 78560, 51829, 10355, 41143 #### [facility] [address] [place] [address], [facility] UFH HEPARIN ASSAYon 11-04-20 19 UNFRACTIONATED HEPARIN <0.10 Critically low 0.30-0.70 The [facility] Comment on above: Result Comment: [place] roxaban and Apixaban will interfere with the anti Xa assay used to monitor UFH and LMWH. RESULTS CHECKED AND CALLED. ACCURATELY READ BACK BY MATTHEW MORRISON RN AT 08:02 RN STATES PATIENT IS STILL ON HEPARIN DRIP. Performed By: #### 5 6101, 76587, 88740, 19780, 11994, 99918, 58276 #### [facility] [address] UNFRACTIONATED HEPARIN 0.26 IU/mL Low 0.30-0.70 The [facility] Comment on above: Result Comment: [place] roxaban and Apixaban will interfere with the anti Xa assay used to monitor UFH and LMWH. Performed By: #### 5 6101, 15099, 45435, 72423, 18657, 39527, 82387 #### [facility] [address] APTTon 11-03-2019 aPTT Coag (Bld) [Time] 161.0 s Critically high 25.0-35.0 The [facility] Comment on above: Order Comment: No: D [...] AT 10:25 Performed By: #### 5 6101, 56937, 21799, 49411, 88163, 27031, 27888 #### [facility] [address] [place] [address], [facility] BASIC METABOLIC PANELon 12- Calcium [Mass/Vol] 7.5 mg/dL Low 8.6-10.3 [facility] Comment on above: Order Comment: No: D o not add to previous draw Performed By: #### 5 6101, 44293, 02573, 06066, 85098, 99486, 54015 #### [facility] [address] [place] [address], [facility] Chloride [Moles/Vol] 96 mmol/L Low 98-107 [facility] Comment on above: Order Comment: No: D o not add to previous draw Performed By: #### 5 6101, 31416, 75127, 56752, 18884, 85596, 90819 #### [facility] [address] [place] [address], [facility] CO2 [Moles/Vol] 29 mmol/L Normal 21-31 The [facility] Comment on above: Order Comment: No: D o not add to previous draw Performed By: #### 5 6101, 57744, 09573, 28624, 02941, 76113, 34254 #### [facility] [address] [place] [address], [facility] Creatinine [Mass/Vol] 0.41 mg/dL Low 0.70-1.30 The [facility] Comment on above: Order Comment: No: D o not add to previous draw Performed By: #### 5 6101, 17051, 29445, 17357, 70968, 29750, 05556 #### [facility] [address] [place] [address], [place] GFR/1.73 sq M predicted among blacks MDRD (S/P/Bld) [Vol rate/Area] mL/min/{1.73_m2} Normal >60 The [facility] Comment on above: Order Comment: No: D o not add to previous draw Performed By: #### 5 6101, 83975, 73476, 69595, 78170, 86364, 47827 #### [facility] [address] [place] [id number], [facility] GFR/1.73 sq M predicted among non-blacks MDRD (S/P/Bld) [Vol rate/Area] mL/min/{1.73_m2} Normal >60 The [facility] Comment on above: Order Comment: No: D o not add to previous draw Performed By: #### 5 6101, 73693, 30491, 49579, 11466, 89129, 17351 #### [facility] [address] [place] [address], [facility] Glucose [Mass/Vol] 86 mg/dL Normal 70-100 [facility] Comment on above: Order Comment: No: D o not add to previous draw Performed By: #### 5 6101, 99515, 26718, 61331, 36916, 49020, 98001 #### [facility] [address] [place] [address], [facility] Potassium [Moles/Vol] 3.4 mmol/L Low 3.5-5.1 The [facility] Comment on above: Order Comment: No: D o not add to previous draw Performed By: #### 5 6101, 85820, 71034, 42452, 78987, 18947, 53329 #### [facility] [address] [place] [address], [facility] Sodium [Moles/Vol] 129 mmol/L Low 136-145 [facility] Comment on above: Order Comment: No: D o not add to previous draw Performed By: #### 5 6101, 12507, 91085, 95273, 94665, 87998, 35168 #### [facility] [address] [place] [address], [facility] Urea nitrogen [Mass/Vol] 5 mg/dL Low 7-25 The [facility] Comment on above: Order Comment: No: D o not add to previous draw Performed By: #### 5 6101, 10628, 71682, 40853, 12200, 42279, 79476 #### [facility] 3000 [facility]. [address] CALCIUM IONIZED CBGLon 11-03 IONIZED CALCIUM 1.07 mmol/L Low 1.12-1.30 The [facility] Comment on above: Performed By: #### 5 6101, 13305, 62643, 98280, 40179, 81931, 10034 #### [facility] [address] CBC COMPLETE BLOOD COUNTon 1 01-04-2019 Erythrocyte distribution width (RBC) [Ratio] 14.5 % Normal 11.5-15.0 The [facility] Comment on above: Order Comment: No: D o not add to previous draw Performed By: #### 5 6101, 40209, 36036, 49038, 38995, 78191, 63295 #### [facility] [address] Hematocrit (Bld) [Volume fraction] 22.1 % Low 39.0-50.0 The [facility] Comment on above: Order Comment: No: D o not add to previous draw Performed By: #### 5 6101, 30703, 92002, 65205, 51786, 95269, 30032 #### [facility] [address] Hemoglobin (Bld) [Mass/Vol] 7.5 g/dL Low 13.0-17.0 [facility] Comment on above: Order Comment: No: D o not add to previous draw Performed By: #### 5 6101, 32282, 76823, 96814, 79524, 15835, 25243 #### [facility] [address] MCH (RBC) [Entitic mass] 30.9 pg Normal 27.0-33.0 [facility] Comment on above: Order Comment: No: D o not add to previous draw Performed By: #### 5 6101, 54846, 44275, 70416, 23189, 91255, 85418 #### [facility] [address] [facility] [address] MCHC (RBC) [Mass/Vol] 33.9 g/dL Normal 32.0-35.0 [facility] Comment on above: Order Comment: No: D o not add to previous draw Performed By: #### 5 6101, 50888, 08266, 46104, 34776, 28829, 67029 #### [facility] [address] [place] [address], [facility] MCV (RBC) [Entitic vol] 90.9 fL Normal 82.0-98.0 [facility] Comment on above: Order Comment: No: D o not add to previous draw Performed By: #### 5 6101, 88066, 53371, 64846, 50990, 21490, 51932 #### [facility] [address] Nucleated RBC/100 WBC (Bld) [Ratio] 0 % Normal 0-0 [facility] Comment on above: Order Comment: No: D o not add to previous draw Performed By: #### 5 6101, 72154, 57512, 32753, 25188, 23778, 11239 #### [facility] [address] [facility] [place] [address], [facility] PLAT CNT 204 10*3/uL Normal 150-400 The [facility] Comment on above: Order Comment: No: D o not add to previous draw Performed By: #### 5 6101, 72429, 79784, 73079, 37084, 61434, 42018 #### [facility] [address] [place] [address], [facility] RBC (Bld) [#/Vol] 2.43 10*6/uL Low 4.20-5.70 The [facility] Comment on above: Order Comment: No: D o not add to previous draw Performed By: #### 5 6101, 98121, 93297, 86753, 05257, 53614, 58188 #### [facility] [address] [place] [address], [facility] WBC (Bld) [#/Vol] 19.35 10*3/uL High 4.00-10.60 [facility] Comment on above: Order Comment: No: D o not add to previous draw Performed By: #### 5 6101, 21710, 67087, 25549, 33808, 60670, 48354 #### [facility] [address] [place] [address], [facility] MAGNESIUM BLOODon 11-03-2019 Magnesium [Mass/Vol] 1.6 mg/dL Low 1.9-2.7 The [facility] Comment on above: Order Comment: No: D o not add to previous draw Performed By: #### 5 6101, 02499, 60198, 04601, 17483, 87988, 11540 #### [facility] [address] [place] [address], [facility] PHOSPHORUS BLOODon 9 Phosphate [Mass/Vol] 2.6 mg/dL Normal 2.5-5.0 [facility] Comment on above: Order Comment: No: D o not add to previous draw Performed By: #### 5 6101, 64443, 06460, 86300, 95859, 95996, 96685 #### [facility] [address] [place] [address], [facility] Phosphate [Mass/Vol] 2.5 mg/dL Normal 2.5-5.0 [facility] Comment on above: Order Comment: No: D o not add to previous draw Performed By: #### 5 6101, 73190, 06464, 47864, 07705, 51840, 30590 #### [facility] [address] [place] [address], [facility] PROTHROMBIN TIMEon 12-05-201 9 INR Coag (PPP) [Relative time] 1.40 {INR} High 0.91-1.16 The [facility] Comment on above: Order Comment: No: D [...] CHEST 1995;[id number]. Performed By: #### 5 6101, 26497, 22820, 06284, 84452, 15055, 01930 #### [facility] [address] PT Coag (PPP) [Time] 17.3 s High 12.3-14.8 The [facility] Comment on above: Order Comment: No: D o not add to previous draw Result Comment: ALL RESULTS MUST BE INTERPRETED WITH RESPECT TO BLOOD DRAWING ARTIFACT OR DILUTION ERROR OF ANTICOAGULANT AT THE TIME OF SAMPLING. Performed By: #### 5 6101, 77691, 55920, 30357, 22150, 26289, 67237 #### [facility] [address] UFH HEPARIN ASSAYon 11-03-20 UNFRACTIONATED HEPARIN 0.21 IU/mL Low 0.30-0.70 The [facility] Comment on above: Order Comment: Pt ca re Result Comment: [place] roxaban and Apixaban will interfere with the anti Xa assay used to monitor UFH and LMWH. Performed By: #### 5 6101, 72527, 66924, 36390, 70857, 11960, 58721 #### [facility] [address] [place] [address], [facility] UNFRACTIONATED HEPARIN 0.23 IU/mL Low 0.30-0.70 [facility] Comment on above: Result Comment: [place] roxaban and Apixaban will interfere with the anti Xa assay used to monitor UFH and LMWH. Performed By: #### 5 6101, 82096, 40918, 13680, 72778, 92237, 86894 #### [facility] [address] [place] [address], [facility] UNFRACTIONATED HEPARIN 0.31 IU/mL Normal 0.30-0.70 [facility] Comment on above: Result Comment: [place] roxaban and Apixaban will interfere with the anti Xa assay used to monitor UFH and LMWH. Performed By: #### 5 6101, 05619, 79348, 61074, 53773, 07664, 88700 #### [facility] [address] [place] [address], [facility] UNFRACTIONATED HEPARIN 0.30 IU/mL Normal 0.30-0.70 [facility] Comment on above: Order Comment: Pt re fused labs. Result Comment: [place] roxaban and Apixaban will interfere with the anti Xa assay used to monitor UFH and LMWH. Performed By: #### 5 6101, 10617, 29284, 56431, 57829, 76638, 61840 #### [facility] [address] [place] [address], [facility] BASIC METABOLIC PANELon 12-0 Calcium [Mass/Vol] 7.2 mg/dL Low 8.6-10.3 [facility] Comment on above: Order Comment: No: D o not add to previous draw Performed By: #### 5 6101, 93368, 24172, 03701, 63867, 49228, 09403 #### [facility] [address] [place] [address], [facility] Chloride [Moles/Vol] 96 mmol/L Low 98-107 [facility] Comment on above: Order Comment: No: D o not add to previous draw Performed By: #### 5 6101, 10249, 48648, 92800, 24568, 94383, 98749 #### [facility] [address] [place] [address], [place] CO2 [Moles/Vol] 30 mmol/L Normal 21-31 [facility] Comment on above: Order Comment: No: D o not add to previous draw Performed By: #### 5 6101, 29558, 86658, 79994, 88735, 71711, 52957 #### [facility] [address] [place] [address], [facility] Creatinine [Mass/Vol] 0.45 mg/dL Low 0.70-1.30 [facility] Comment on above: Order Comment: No: D o not add to previous draw Performed By: #### 5 6101, 11333, 26512, 24398, 59115, 61699, 27127 #### [facility] [address] [place] [address], [facility] GFR/1.73 sq M predicted among blacks MDRD (S/P/Bld) [Vol rate/Area] mL/min/{1.73_m2} Normal >60 [facility] Comment on above: Order Comment: No: D o not add to previous draw Performed By: #### 5 6101, 97167, 61385, 38244, 27431, 49376, 85313 #### [facility] [address] [place] [address], [place] GFR/1.73 sq M predicted among non-blacks MDRD (S/P/Bld) [Vol rate/Area] mL/min/{1.73_m2} Normal >60 [facility] Comment on above: Order Comment: No: D o not add to previous draw Performed By: #### 5 6101, 98481, 23630, 55367, 28886, 62724, 66330 #### [facility] [address] [place] [address], [place] Glucose [Mass/Vol] 94 mg/dL Normal 70-100 The [facility] Comment on above: Order Comment: No: D o not add to previous draw Performed By: #### 5 6101, 32984, 37418, 86530, 50163, 52852, 88915 #### [facility] [address] [place] [address], [facility] Potassium [Moles/Vol] 3.3 mmol/L Low 3.5-5.1 [facility] Comment on above: Order Comment: No: D o not add to previous draw Performed By: #### 5 6101, 30690, 78552, 78040, 04561, 37982, 07701 #### [facility] [address] [place] [address], [place] Sodium [Moles/Vol] 128 mmol/L Low 136-145 The [facility] Comment on above: Order Comment: No: D o not add to previous draw Performed By: #### 5 6101, 36601, 12650, 49949, 87542, 15980, 56129 #### [facility] [address] [place] [address], [place] Urea nitrogen [Mass/Vol] 5 mg/dL Low 7-25 [facility] Comment on above: Order Comment: No: D o not add to previous draw Performed By: #### 5 6101, 67274, 87735, 13894, 56235, 00359, 43408 #### [facility] [address] [place] [address], [place] CALCIUMon 11-02-2019 Calcium [Mass/Vol] 7.2 mg/dL Low 8.6-10.3 The [facility] Comment on above: Order Comment: No: D o not add to previous draw Performed By: #### 5 6101, 90145, 80247, 07239, 80379, 85832, 94691 #### [facility] [address] [place] [id number] CBC COMPLETE BLOOD COUNTon 01-03-2019 Erythrocyte distribution width (RBC) [Ratio] 13.9 % Normal 11.5-15.0 [facility] Comment on above: Order Comment: No: D o not add to previous draw Performed By: #### 5 6101, 04411, 69196, 64896, 73841, 59042, 33139 #### [facility] [address] Hematocrit (Bld) [Volume fraction] 21.4 % Low 39.0-50.0 [facility] Comment on above: Order Comment: No: D o not add to previous draw Performed By: #### 5 6101, 37058, 51456, 05097, 39163, 65939, 02241 #### [facility] [address] [place] [address], [facility] Hemoglobin (Bld) [Mass/Vol] 7.6 g/dL Low 13.0-17.0 [facility] Comment on above: Order Comment: No: D o not add to previous draw Performed By: #### 5 6101, 42959, 18644, 90778, 50835, 17399, 81334 #### [facility] [address] [place] [address], [facility] MCH (RBC) [Entitic mass] 31.1 pg Normal 27.0-33.0 [facility] Comment on above: Order Comment: No: D o not add to previous draw Performed By: #### 5 6101, 03639, 95694, 58274, 25806, 47432, 32596 #### [facility] [address] [place] [address], [facility] MCHC (RBC) [Mass/Vol] 35.5 g/dL High 32.0-35.0 [facility] Comment on above: Order Comment: No: D o not add to previous draw Performed By: #### 5 6101, 81694, 95354, 85525, 72701, 19643, 77265 #### [facility] [address] [place] [id number], [facility] MCV (RBC) [Entitic vol] 87.7 fL Normal 82.0-98.0 [facility] Comment on above: Order Comment: No: D o not add to previous draw Performed By: #### 5 6101, 88327, 92094, 69365, 98312, 06768, 26292 #### [facility] [address] [place] [address], [facility] Nucleated RBC/100 WBC (Bld) [Ratio] 0 % Normal 0-0 [facility] Comment on above: Order Comment: No: D o not add to previous draw Performed By: #### 5 6101, 70749, 67866, 01563, 96942, 37719, 10094 #### [facility] [address] [place] [address], [facility] PLAT CNT 144 10*3/uL Low 150-400 The [facility] Comment on above: Order Comment: No: D o not add to previous draw Performed By: #### 5 6101, 11492, 44055, 46543, 96639, 51784, 32184 #### [facility] [address] [place] [id number], [facility] RBC (Bld) [#/Vol] 2.44 10*6/uL Low 4.20-5.70 [facility] Comment on above: Order Comment: No: D o not add to previous draw Performed By: #### 5 6101, 13420, 07267, 74497, 25305, 29607, 55959 #### [facility] [address] WBC (Bld) [#/Vol] 16.13 10*3/uL High 4.00-10.60 The [facility] Comment on above: Order Comment: No: D o not add to previous draw Performed By: #### 5 6101, 57698, 80780, 81902, 60004, 94008, 04931 #### [facility] [address] MAGNESIUM BLOODon 11-02-2019 Magnesium [Mass/Vol] 1.6 mg/dL Low 1.9-2.7 The [facility] Comment on above: Order Comment: No: D o not add to previous draw Performed By: #### 5 6101, 44229, 53535, 32602, 25563, 50949, 90020 #### [facility] [address] [facility] PHOSPHORUS BLOODon 9 Phosphate [Mass/Vol] 2.5 mg/dL Normal 2.5-5.0 [facility] Comment on above: Order Comment: No: D o not add to previous draw Performed By: #### 5 6101, 47620, 71780, 61259, 93376, 98106, 14445 #### [facility] [address] [facility] [address] UFH HEPARIN ASSAYon 11-02-20 19 UNFRACTIONATED HEPARIN 0.10 IU/mL Critically low 0.30-0.70 The [facility] Comment on above: Result Comment: [place] roxaban and Apixaban will interfere with the anti Xa assay used to monitor UFH and LMWH. RESULTS CHECKED AND CALLED. ACCURATELY READ BACK BY SUELLEN KAUR RN @ 2020 Performed By: #### 5 6101, 24703, 67485, 31889, 86800, 36288, 82908 #### [facility] [address] UNFRACTIONATED HEPARIN <0.10 Critically low 0.30-0.70 [facility] Comment on above: Result Comment: [place] roxaban and Apixaban will interfere with the anti Xa assay used to monitor UFH and LMWH. RESULTS CHECKED AND CALLED. ACCURATELY READ BACK BY JACOBY GREGORIO RN AT 0618 Performed By: #### 5 6101, 08213, 60865, 89927, 51645, 66518, 77657 #### [facility] [address] [facility] [address] BASIC METABOLIC PANELon 12-0 Calcium [Mass/Vol] 6.8 mg/dL Low 8.6-10.3 [facility] Comment on above: Order Comment: No: D o not add to previous draw Performed By: #### 5 6101, 72770, 89408, 79056, 24889, 25346, 09825 #### [facility] [address] [facility] [address], [facility] Chloride [Moles/Vol] 95 mmol/L Low 98-107 [facility] Comment on above: Order Comment: No: D o not add to previous draw Performed By: #### 5 6101, 33088, 34937, 47871, 97429, 67464, 01980 #### [facility] [address] [place] [address], [facility] CO2 [Moles/Vol] 29 mmol/L Normal 21-31 [facility] Comment on above: Order Comment: No: D o not add to previous draw Performed By: #### 5 6101, 43033, 34834, 15277, 10278, 98936, 10480 #### [facility] [address] [place] [address], [facility] Creatinine [Mass/Vol] 0.43 mg/dL Low 0.70-1.30 [facility] Comment on above: Order Comment: No: D o not add to previous draw Performed By: #### 5 6101, 94276, 57652, 37033, 73424, 24246, 83010 #### [facility] [address] [place] [address], [place] GFR/1.73 sq M predicted among blacks MDRD (S/P/Bld) [Vol rate/Area] mL/min/{1.73_m2} Normal >60 [facility] Comment on above: Order Comment: No: D o not add to previous draw Performed By: #### 5 6101, 28882, 65766, 53644, 02463, 04912, 72511 #### [facility] [address] [place] [address], [facility] GFR/1.73 sq M predicted among non-blacks MDRD (S/P/Bld) [Vol rate/Area] mL/min/{1.73_m2} Normal >60 [facility] Comment on above: Order Comment: No: D o not add to previous draw Performed By: #### 5 6101, 73576, 19832, 24501, 34123, 75381, 55429 #### [facility] [address] [place] [address], [place] Glucose [Mass/Vol] 113 mg/dL High 70-100 [facility] Comment on above: Order Comment: No: D o not add to previous draw Performed By: #### 5 6101, 13734, 54996, 43263, 46480, 11096, 68189 #### [facility] [address] [place] [address], [place] Potassium [Moles/Vol] 3.0 mmol/L Low 3.5-5.1 The [facility] Comment on above: Order Comment: No: D o not add to previous draw Performed By: #### 5 6101, 27655, 91152, 42973, 84289, 36826, 04383 #### [facility] [address] [place] [address], [place] Sodium [Moles/Vol] 131 mmol/L Low 136-145 [facility] Comment on above: Order Comment: No: D o not add to previous draw Performed By: #### 5 6101, 63527, 04635, 81386, 20814, 22772, 29605 #### [facility] [address] [place] [address], [facility] Urea nitrogen [Mass/Vol] 7 mg/dL Normal 7-25 [facility] Comment on above: Order Comment: No: D o not add to previous draw Performed By: #### 5 6101, 40536, 70615, 56613, 90227, 31280, 91465 #### [facility] [address] [place] [address], [facility] CALCIUM IONIZED CBGLon 11-01 IONIZED CALCIUM 1.01 mmol/L Low 1.12-1.30 [facility] Comment on above: Order Comment: Pt us ing restroom, come back Performed By: #### 5 6101, 46747, 86322, 32543, 93484, 93289, 09617 #### [facility] [address] [place] [address], [facility] CBC COMPLETE BLOOD COUNTon 1 01-02-2019 Erythrocyte distribution width (RBC) [Ratio] 14.2 % Normal 11.5-15.0 [facility] Comment on above: Order Comment: No: D o not add to previous draw Performed By: #### 5 6101, 75251, 79018, 42479, 08272, 37049, 87884 #### [facility] [address] [place] [address], [place] Hematocrit (Bld) [Volume fraction] 18.2 % Low 39.0-50.0 [facility] Comment on above: Order Comment: No: D o not add to previous draw Performed By: #### 5 6101, 39213, 33236, 17880, 39225, 49465, 63626 #### [facility] [address] Hemoglobin (Bld) [Mass/Vol] 6.5 g/dL Low 13.0-17.0 [facility] Comment on above: Order Comment: No: D o not add to previous draw Performed By: #### 5 6101, 76320, 87095, 47286, 16568, 39824, 90920 #### [facility] [address] [place] [address], [facility] IMM PLATELET FRAC 11.4 % High 0.8-6.3 The [facility] Comment on above: Order Comment: No: D o not add to previous draw Performed By: #### 5 6101, 41786, 89217, 78138, 00224, 71636, 14729 #### [facility] [address] [place] [address], [facility] MCH (RBC) [Entitic mass] 31.4 pg Normal 27.0-33.0 [facility] Comment on above: Order Comment: No: D o not add to previous draw Performed By: #### 5 6101, 26767, 94100, 34109, 35191, 28870, 08415 #### [facility] [address] MCHC (RBC) [Mass/Vol] 35.7 g/dL High 32.0-35.0 [facility] Comment on above: Order Comment: No: D o not add to previous draw Performed By: #### 5 6101, 40261, 98782, 73330, 13690, 92991, 80071 #### [facility] [address] [place] [id number], [facility] MCV (RBC) [Entitic vol] 87.9 fL Normal 82.0-98.0 [facility] Comment on above: Order Comment: No: D o not add to previous draw Performed By: #### 5 6101, 87694, 20098, 91110, 07038, 35853, 12548 #### [facility] [address] Nucleated RBC/100 WBC (Bld) [Ratio] 0 % Normal 0-0 [facility] [place] Comment on above: Order Comment: No: D o not add to previous draw Performed By: #### 5 6101, 37796, 99348, 03602, 41033, 58930, 05104 #### [facility] [address] [address], [facility] PLAT CNT 86 10*3/uL Low 150-400 [facility] [place] Comment on above: Order Comment: No: D o not add to previous draw Result Comment: P=82 23H Performed By: #### 5 6101, 99213, 29840, 75951, 79106, 90311, 25090 #### [facility] [address] [place] [address], [facility] RBC (Bld) [#/Vol] 2.07 10*6/uL Low 4.20-5.70 [facility] Comment on above: Order Comment: No: D o not add to previous draw Performed By: #### 5 6101, 60989, 05298, 43461, 58043, 22146, 98336 #### [facility] [address] [place] [address], [facility] WBC (Bld) [#/Vol] 16.52 10*3/uL High 4.00-10.60 [facility] [place] Comment on above: Order Comment: No: D o not add to previous draw Performed By: #### 5 6101, 18085, 58220, 70323, 51270, 98115, 62408 #### [facility] [address] [place] [address], [facility] HEMOGLOBINon 11-01-2019 Hemoglobin (Bld) [Mass/Vol] 8.1 g/dL Low 13.0-17.0 [facility] [place] Comment on above: Order Comment: No: D o not add to previous draw Performed By: #### 5 6101, 70268, 21761, 75466, 02973, 88067, 21083 #### [facility] [address] Hemoglobin (Bld) [Mass/Vol] 6.3 g/dL Low 13.0-17.0 [facility] Comment on above: Order Comment: No: D o not add to previous draw Performed By: #### 5 6101, 23234, 22810, 97014, 23244, 61763, 92901 #### [facility] [address] [facility] PLATELET COUNTon 11-01-2019 Platelets (Bld) [#/Vol] 102 10*3/uL Low 150-400 [facility] Comment on above: Order Comment: No: D o not add to previous draw Performed By: #### 5 6101, 40089, 12476, 83168, 52973, 54216, 71043 #### [facility] [address] [facility] RBC'S 2 UNITSon 11-01-2019 CROSSMATCH INTERP 1 COMP Normal [facility] Comment on above: Order Comment: Hemog lobin < 7gm/dl Performed By: #### 5 6101, 65815, 95651, 13628, 15558, 94608, 68642 #### [facility] [address] [facility] CROSSMATCH INTERP 2 COMP Normal [facility] Comment on above: Order Comment: Hemog lobin < 7gm/dl Performed By: #### 5 6101, 64539, 63080, 99653, 89862, 43689, 29922 #### [facility] [address] [address], [facility] PRODUCT CODE 1 E0336 Normal The [facility] Comment on above: Order Comment: Hemog lobin < 7gm/dl Performed By: #### 5 6101, 49021, 71809, 95603, 82164, 92407, 92536 #### [facility] [address] [place] [address], [facility] PRODUCT CODE 2 E0685 Normal [facility] Comment on above: Order Comment: Hemog lobin < 7gm/dl Performed By: #### 5 6101, 76769, 98016, 12449, 53817, 10752, 81454 #### [facility] [address] [place] [id number], [facility] PRODUCT STATUS 1 PT Normal [facility] Comment on above: Order Comment: Hemog lobin < 7gm/dl Result Comment: Resu lt changed by IF on 11/01/2019 11:43. The previous value was XM. Result changed by IF on 11/02/2019 00:30. The previous value was IS. Performed By: #### 5 6101, 41773, 58965, 49276, 10365, 72988, 43474 #### [facility] [address] PRODUCT STATUS 2 PT Normal [facility] Comment on above: Order Comment: Hemog lobin < 7gm/dl Result Comment: Resu lt changed by IF on 11/01/2019 09:35. The previous value was XM. Result changed by IF on 11/02/2019 00:30. The previous value was IS. Performed By: #### 5 6101, 06980, 51701, 85122, 61429, 66274, 18055 #### [facility] [address] [place] [address], [facility] UNIT ABO 1 O Normal [facility] [place] Comment on above: Order Comment: Hemog lobin < 7gm/dl Performed By: #### 5 6101, 60227, 00548, 25442, 54121, 86041, 83289 #### [facility] [address] [place] [address], [facility] UNIT ABO 2 O Normal [facility] [place] Comment on above: Order Comment: Hemog lobin < 7gm/dl Performed By: #### 5 6101, 57837, 88310, 70696, 64252, 76402, 05920 #### [facility] [address] UNIT ID 1 [id number] Normal [facility] Comment on above: Order Comment: Hemog lobin < 7gm/dl Performed By: #### 5 6101, 89693, 21069, 24435, 16087, 87666, 86047 #### [facility] [address] UNIT ID 2 [id number] Normal [facility] Comment on above: Order Comment: Hemog lobin < 7gm/dl Performed By: #### 5 6101, 06577, 41100, 61982, 19230, 06257, 55350 #### [facility] [address] UNIT RH 1 Positive Normal [facility] Comment on above: Order Comment: Hemog lobin < 7gm/dl Performed By: #### 5 6101, 98135, 22263, 66115, 60673, 78233, 92835 #### [facility] [address] UNIT RH 2 Positive Normal [facility] [place] Comment on above: Order Comment: Hemog lobin < 7gm/dl Performed By: #### 5 6101, 18231, 72962, 28133, 63096, 61949, 89352 #### [facility] [address] [place] [address], [facility] TYPE AND SCREENon 11-01-2019 ABO INTERPRETATION O Normal The [facility] Comment on above: Performed By: #### 5 6101, 69008, 22923, 51120, 86905, 73093, 09063 #### [facility] [address] [place] [address], [facility] RH INTERPRETATION Positive Normal [facility] Comment on above: Performed By: #### 5 6101, 82006, 08917, 61161, 06673, 72251, 94648 #### [facility] [address] [place] [address], [facility] UFH HEPARIN ASSAYon 11-01-20 19 UNFRACTIONATED HEPARIN 0.91 IU/mL Critically high 0.30-0.70 [facility] Comment on above: Result Comment: [place] roxaban and Apixaban will interfere with the anti Xa assay used to monitor UFH and LMWH. RESULTS CHECKED AND CALLED. ACCURATELY READ BACK BY STACY ZENG RN AT 0622 Performed By: #### 5 6101, 17399, 54462, 26381, 04895, 04657, 28698 #### [facility] [address] BASIC METABOLIC PANELon 12-0 Calcium [Mass/Vol] 7.4 mg/dL Low 8.6-10.3 [facility] Comment on above: Order Comment: No: D o not add to previous draw Performed By: #### 5 6101, 40289, 16319, 51855, 31611, 01814, 89204 #### [facility] [address] [place] [address], [facility] Chloride [Moles/Vol] 98 mmol/L Normal 98-107 [facility] [place] Comment on above: Order Comment: No: D o not add to previous draw Performed By: #### 5 6101, 57026, 54072, 88011, 44563, 37727, 95419 #### [facility] [address] [place] [id number], [facility] CO2 [Moles/Vol] 31 mmol/L Normal 21-31 [facility] Comment on above: Order Comment: No: D o not add to previous draw Performed By: #### 5 6101, 29007, 59901, 19397, 36125, 47220, 01601 #### [facility] [address] [place] [address], [place] Creatinine [Mass/Vol] 0.55 mg/dL Low 0.70-1.30 [facility] [place] Comment on above: Order Comment: No: D o not add to previous draw Performed By: #### 5 6101, 68033, 03829, 39049, 72077, 45935, 89501 #### [facility] [address] [place] [address], [place] GFR/1.73 sq M predicted among blacks MDRD (S/P/Bld) [Vol rate/Area] mL/min/{1.73_m2} Normal >60 [facility] [place] Comment on above: Order Comment: No: D o not add to previous draw Performed By: #### 5 6101, 68988, 84221, 31488, 08887, 38623, 97299 #### [facility] [address] [place] [address], [place] GFR/1.73 sq M predicted among non-blacks MDRD (S/P/Bld) [Vol rate/Area] mL/min/{1.73_m2} Normal >60 [facility] [place] Comment on above: Order Comment: No: D o not add to previous draw Performed By: #### 5 6101, 57926, 87601, 78428, 70956, 40607, 87500 #### [facility] [address] [place] [address], [place] Glucose [Mass/Vol] 94 mg/dL Normal 70-100 The [facility] Comment on above: Order Comment: No: D o not add to previous draw Performed By: #### 5 6101, 51188, 71263, 15446, 72081, 77573, 77181 #### [facility] [address] [place] [address], [place] Potassium [Moles/Vol] 3.1 mmol/L Low 3.5-5.1 [facility] [place] Comment on above: Order Comment: No: D o not add to previous draw Performed By: #### 5 6101, 12261, 49612, 92040, 02730, 67935, 46951 #### [facility] [address] [place] [id number], [facility] Sodium [Moles/Vol] 133 mmol/L Low 136-145 [facility] Comment on above: Order Comment: No: D o not add to previous draw Performed By: #### 5 6101, 10936, 67871, 95877, 71627, 57172, 97463 #### [facility] [address] Urea nitrogen [Mass/Vol] 9 mg/dL Normal 7-25 [facility] [place] Comment on above: Order Comment: No: D o not add to previous draw Performed By: #### 5 6101, 75869, 24353, 55603, 77856, 07614, 39420 #### [facility] [address] CBC COMPLETE BLOOD COUNTon 1 01-01-2019 Erythrocyte distribution width (RBC) [Ratio] 14.4 % Normal 11.5-15.0 [facility] Comment on above: Order Comment: No: D o not add to previous draw Performed By: #### 5 6101, 89844, 34962, 78304, 11535, 76005, 92505 #### [facility] [address] [place] [id number], [facility] Hematocrit (Bld) [Volume fraction] 27.3 % Low 39.0-50.0 [facility] [place] Comment on above: Order Comment: No: D o not add to previous draw Performed By: #### 5 6101, 64515, 89808, 12108, 39827, 09860, 68222 #### [facility] [address] Hemoglobin (Bld) [Mass/Vol] 9.5 g/dL Low 13.0-17.0 [facility] [place] Comment on above: Order Comment: No: D o not add to previous draw Performed By: #### 5 6101, 22199, 42992, 04032, 84188, 35874, 12450 #### [facility] [address] [place] [address], [facility] IMM PLATELET FRAC 10.7 % High 0.8-6.3 The [facility] Comment on above: Order Comment: No: D o not add to previous draw Performed By: #### 5 6101, 23142, 46707, 74692, 53003, 26491, 22484 #### [facility] [address] [place] [address], [facility] MCH (RBC) [Entitic mass] 30.9 pg Normal 27.0-33.0 [facility] [place] Comment on above: Order Comment: No: D o not add to previous draw Performed By: #### 5 6101, 64089, 08709, 11369, 22777, 64873, 56214 #### [facility] [address] MCHC (RBC) [Mass/Vol] 34.8 g/dL Normal 32.0-35.0 [facility] [place] Comment on above: Order Comment: No: D o not add to previous draw Performed By: #### 5 6101, 82158, 11450, 92819, 11327, 46846, 70538 #### [facility] [address] [place] [address], [facility] MCV (RBC) [Entitic vol] 88.9 fL Normal 82.0-98.0 [facility] [place] Comment on above: Order Comment: No: D o not add to previous draw Performed By: #### 5 6101, 75220, 64353, 03229, 91743, 86814, 58788 #### [facility] [address] [place] [address], [facility] Nucleated RBC/100 WBC (Bld) [Ratio] 0 % Normal 0-0 [facility] [place] Comment on above: Order Comment: No: D o not add to previous draw Performed By: #### 5 6101, 04460, 26247, 03671, 49809, 69188, 35740 #### [facility] [address] [facility] [place] [address], [facility] PLAT CNT 82 10*3/uL Low 150-400 [facility] [place] Comment on above: Order Comment: No: D o not add to previous draw Result Comment: P = 77 Performed By: #### 5 6101, 45571, 80685, 87301, 34162, 98843, 68491 #### [facility] [address] [facility] [place] [address], [facility] RBC (Bld) [#/Vol] 3.07 10*6/uL Low 4.20-5.70 [facility] Comment on above: Order Comment: No: D o not add to previous draw Performed By: #### 5 6101, 16350, 71940, 02737, 03890, 66700, 21640 #### [facility] [address] [place] [address], [facility] WBC (Bld) [#/Vol] 13.09 10*3/uL High 4.00-10.60 [facility] [place] Comment on above: Order Comment: No: D o not add to previous draw Performed By: #### 5 6101, 41389, 88899, 32552, 95286, 11853, 81138 #### [facility] [address] [facility] [place] [address], [facility] MAGNESIUM BLOODon 10-31-2019 Magnesium [Mass/Vol] 1.9 mg/dL Normal 1.9-2.7 [facility] Comment on above: Order Comment: No: D o not add to previous draw Performed By: #### 5 6101, 40806, 06861, 33440, 42999, 73294, 66164 #### [facility] [address] UFH HEPARIN ASSAYon 10-31-20 19 UNFRACTIONATED HEPARIN 0.52 IU/mL Normal 0.30-0.70 [facility] Comment on above: Result Comment: [place] roxaban and Apixaban will interfere with the anti Xa assay used to monitor UFH and LMWH. Performed By: #### 5 6101, 16971, 82218, 77335, 32726, 52595, 65986 #### [facility] [address] BASIC METABOLIC PANELon Calcium [Mass/Vol] 7.4 mg/dL Low 8.6-10.3 [facility] Comment on above: Order Comment: No: D o not add to previous draw Performed By: #### 5 6101, 91404, 56648, 41844, 26605, 80246, 11594 #### [facility] [address] [place] [address], [facility] Chloride [Moles/Vol] 97 mmol/L Low 98-107 [facility] [place] Comment on above: Order Comment: No: D o not add to previous draw Performed By: #### 5 6101, 45159, 59657, 44658, 81057, 69488, 73540 #### [facility] [address] [place] [address], [facility] CO2 [Moles/Vol] 31 mmol/L Normal 21-31 [facility] Comment on above: Order Comment: No: D o not add to previous draw Performed By: #### 5 6101, 28669, 72018, 59062, 01753, 23592, 64368 #### [facility] [address] [place] [address], [facility] Creatinine [Mass/Vol] 0.55 mg/dL Low 0.70-1.30 [facility] [place] Comment on above: Order Comment: No: D o not add to previous draw Performed By: #### 5 6101, 23274, 29353, 02977, 58196, 73205, 14250 #### [facility] [address] [place] [address], [facility] GFR/1.73 sq M predicted among blacks MDRD (S/P/Bld) [Vol rate/Area] mL/min/{1.73_m2} Normal >60 [facility] [place] Comment on above: Order Comment: No: D o not add to previous draw Performed By: #### 5 6101, 58607, 53781, 47852, 34260, 37309, 78216 #### [facility] [address] [place] [address], [facility] GFR/1.73 sq M predicted among non-blacks MDRD (S/P/Bld) [Vol rate/Area] mL/min/{1.73_m2} Normal >60 [facility] [place] Comment on above: Order Comment: No: D o not add to previous draw Performed By: #### 5 6101, 97247, 65419, 49230, 99211, 81835, 80329 #### [facility] [address] [place] [address], [place] Glucose [Mass/Vol] 111 mg/dL High 70-100 The [facility] Comment on above: Order Comment: No: D o not add to previous draw Performed By: #### 5 6101, 44579, 10281, 13569, 29598, 41751, 37272 #### [facility] [address] [place] [address], [place] Potassium [Moles/Vol] 3.4 mmol/L Low 3.5-5.1 [facility] [place] Comment on above: Order Comment: No: D o not add to previous draw Performed By: #### 5 6101, 96522, 61985, 86519, 15782, 49434, 71330 #### [facility] [address] [place] [address], [facility] Sodium [Moles/Vol] 134 mmol/L Low 136-145 The [facility] Comment on above: Order Comment: No: D o not add to previous draw Performed By: #### 5 6101, 73439, 58273, 38901, 50918, 67068, 89591 #### [facility] [address] [place] [id number], [facility] Urea nitrogen [Mass/Vol] 10 mg/dL Normal 7-25 [facility] [place] Comment on above: Order Comment: No: D o not add to previous draw Performed By: #### 5 6101, 74039, 87716, 73589, 59323, 61646, 55888 #### [facility] [address] CBC COMPLETE BLOOD COUNTon 12-31-2018 Erythrocyte distribution width (RBC) [Ratio] 14.1 % Normal 11.5-15.0 [facility] Comment on above: Order Comment: No: D o not add to previous draw Performed By: #### 5 6101, 51077, 25187, 22206, 59324, 17518, 71313 #### [facility] [address] [place] [address], [facility] Hematocrit (Bld) [Volume fraction] 32.9 % Low 39.0-50.0 [facility] [place] Comment on above: Order Comment: No: D o not add to previous draw Performed By: #### 5 6101, 79871, 56479, 15117, 69570, 09473, 42709 #### [facility] [address] [place] [id number], [facility] Hemoglobin (Bld) [Mass/Vol] 11.3 g/dL Low 13.0-17.0 [facility] [place] Comment on above: Order Comment: No: D o not add to previous draw Performed By: #### 5 6101, 53238, 22045, 30665, 56479, 20411, 35511 #### [facility] [address] [place] [address], [facility] IMM PLATELET FRAC 6.4 % High 0.8-6.3 The [facility] Comment on above: Order Comment: No: D o not add to previous draw Performed By: #### 5 6101, 98126, 38117, 62430, 69206, 54680, 22197 #### [facility] [address] [place] [address], [facility] MCH (RBC) [Entitic mass] 30.9 pg Normal 27.0-33.0 [facility] [place] Comment on above: Order Comment: No: D o not add to previous draw Performed By: #### 5 6101, 91607, 46304, 48788, 33446, 01867, 07708 #### [facility] [address] MCHC (RBC) [Mass/Vol] 34.3 g/dL Normal 32.0-35.0 [facility] [place] Comment on above: Order Comment: No: D o not add to previous draw Performed By: #### 5 6101, 09777, 59870, 31780, 87932, 25960, 24835 #### [facility] [address] [place] [address], [facility] MCV (RBC) [Entitic vol] 89.9 fL Normal 82.0-98.0 [facility] [place] Comment on above: Order Comment: No: D o not add to previous draw Performed By: #### 5 6101, 25393, 30684, 31164, 69605, 04069, 82767 #### [facility] [address] [facility]. [address] Nucleated RBC/100 WBC (Bld) [Ratio] 0 % Normal 0-0 [facility] [place] Comment on above: Order Comment: No: D o not add to previous draw Performed By: #### 5 6101, 06483, 19795, 47294, 30997, 19478, 00967 #### [facility] [address] [place] [address], [facility] PLAT CNT 77 10*3/uL Low 150-400 [facility] [place] Comment on above: Order Comment: No: D o not add to previous draw Performed By: #### 5 6101, 12167, 41046, 99220, 02570, 58938, 61273 #### [facility] [address] [place] [address], [facility] RBC (Bld) [#/Vol] 3.66 10*6/uL Low 4.20-5.70 [facility] Comment on above: Order Comment: No: D o not add to previous draw Performed By: #### 5 6101, 91307, 74155, 37624, 77654, 04027, 60115 #### [facility] [address] [place] [address], [facility] WBC (Bld) [#/Vol] 11.15 10*3/uL High 4.00-10.60 [facility] [place] Comment on above: Order Comment: No: D o not add to previous draw Performed By: #### 5 6101, 13973, 00484, 46784, 49516, 70347, 07227 #### [facility] [address] [place] [address], [facility] LACTATE BLOODon 10-30-2019 Lactate [Moles/Vol] 0.7 mmol/L Normal 0.5-2.2 [facility] Comment on above: Order Comment: No: D o not add to previous draw Performed By: #### 5 6101, 26565, 16522, 79657, 66016, 83592, 04115 #### [facility] [address] [place] [address], [facility] LIVER BATTERYon 10-30-2019 Albumin [Mass/Vol] 2.1 g/dL Low 3.5-5.7 [facility] Comment on above: Order Comment: No: D o not add to previous draw Performed By: #### 5 6101, 56611, 59499, 07895, 80390, 73522, 64542 #### [facility] [address] [place] [address], [facility] ALKALINE PHOSPH 113 IU/L High 34-104 [facility] Comment on above: Order Comment: No: D o not add to previous draw Performed By: #### 5 6101, 14386, 88242, 63538, 50445, 46523, 66551 #### [facility] [address] [place] [address], [facility] ALT [Catalytic activity/Vol] 28 U/L Normal 7-52 [facility] [place] Comment on above: Order Comment: No: D o not add to previous draw Performed By: #### 5 6101, 55060, 85673, 21100, 47962, 25600, 17446 #### [facility] [address] [place] [address], [place] AST [Catalytic activity/Vol] 19 U/L Normal 13-39 [facility] [place] Comment on above: Order Comment: No: D o not add to previous draw Performed By: #### 5 6101, 96173, 75988, 21216, 30288, 87160, 28530 #### [facility] [address] [place] [address], [place] Bilirubin [Mass/Vol] 2.8 mg/dL High 0.3-1.0 The [facility] Comment on above: Order Comment: No: D o not add to previous draw Performed By: #### 5 6101, 66836, 16558, 10582, 25088, 14664, 49397 #### [facility] [address] [place] [address], [place] Bilirubin.direct [Mass/Vol] 1.9 mg/dL High 0.0-0.2 The [facility] Comment on above: Order Comment: No: D o not add to previous draw Performed By: #### 5 6101, 87040, 91733, 64403, 16007, 45845, 69012 #### [facility] [address] [place] [address], [facility] Protein [Mass/Vol] 4.7 g/dL Low 6.0-8.3 The [facility] Comment on above: Order Comment: No: D o not add to previous draw Performed By: #### 5 6101, 19033, 15359, 29676, 65647, 23817, 77300 #### [facility] [address] [place] [address], [facility] [employer] BLOODon 10-30-2019 Magnesium [Mass/Vol] 2.0 mg/dL Normal 1.9-2.7 [facility] Comment on above: Order Comment: No: D o not add to previous draw Performed By: #### 5 6101, 93380, 68731, 57028, 29532, 96461, 08658 #### [facility] [address] [place] [address], [facility] PHOSPHORUS BLOODon 9 Phosphate [Mass/Vol] 3.3 mg/dL Normal 2.5-5.0 [facility] Comment on above: Order Comment: No: D o not add to previous draw Performed By: #### 5 6101, 04347, 24965, 16387, 11528, 58633, 68981 #### [facility] [address] [place] [address], [facility] UFH HEPARIN ASSAYon 10-30-20 19 UNFRACTIONATED HEPARIN 0.43 IU/mL Normal 0.30-0.70 [facility] Comment on above: Result Comment: [place] roxaban and Apixaban will interfere with the anti Xa assay used to monitor UFH and LMWH. Performed By: #### 5 6101, 29932, 46514, 09857, 77816, 70145, 70232 #### [facility] [address] BASIC METABOLIC PANELon 11-3 Calcium [Mass/Vol] 7.3 mg/dL Low 8.6-10.3 [facility] Comment on above: Order Comment: No: D o not add to previous draw Performed By: #### 5 6101, 34655, 19757, 18429, 22053, 99861, 46135 #### [facility] [address] [place] [address], [facility] Chloride [Moles/Vol] 95 mmol/L Low 98-107 [facility] Comment on above: Order Comment: No: D o not add to previous draw Performed By: #### 5 6101, 43052, 92531, 48310, 70116, 85693, 23000 #### [facility] [address] [place] [address], [facility] CO2 [Moles/Vol] 33 mmol/L High 21-31 [facility] Comment on above: Order Comment: No: D o not add to previous draw Performed By: #### 5 6101, 75277, 28241, 04337, 86943, 44830, 76907 #### [facility] [address] [place] [address], [facility] Creatinine [Mass/Vol] 0.63 mg/dL Low 0.70-1.30 [facility] Comment on above: Order Comment: No: D o not add to previous draw Performed By: #### 5 6101, 11692, 75142, 73586, 35558, 70482, 39634 #### [facility] [address] [place] [address], [facility] GFR/1.73 sq M predicted among blacks MDRD (S/P/Bld) [Vol rate/Area] mL/min/{1.73_m2} Normal >60 [facility] Comment on above: Order Comment: No: D o not add to previous draw Performed By: #### 5 6101, 16297, 96437, 16755, 95355, 51058, 48237 #### [facility] [address] [place] [address], [facility] GFR/1.73 sq M predicted among non-blacks MDRD (S/P/Bld) [Vol rate/Area] mL/min/{1.73_m2} Normal >60 [facility] Comment on above: Order Comment: No: D o not add to previous draw Performed By: #### 5 6101, 25732, 67152, 77572, 75406, 01446, 84941 #### [facility] [address] [place] [address], [place] Glucose [Mass/Vol] 134 mg/dL High 70-100 The [facility] Comment on above: Order Comment: No: D o not add to previous draw Performed By: #### 5 6101, 69748, 87960, 07221, 53557, 35706, 84131 #### [facility] [address] [place] [address], [facility] Potassium [Moles/Vol] 3.8 mmol/L Normal 3.5-5.1 [facility] Comment on above: Order Comment: No: D o not add to previous draw Performed By: #### 5 6101, 94108, 32167, 62779, 51931, 17717, 86738 #### [facility] [address] [place] [address], [place] Sodium [Moles/Vol] 132 mmol/L Low 136-145 The [facility] Comment on above: Order Comment: No: D o not add to previous draw Performed By: #### 5 6101, 88134, 51958, 71741, 01205, 78567, 96378 #### [facility] [address] [place] [address], [place] Urea nitrogen [Mass/Vol] 10 mg/dL Normal 7-25 [facility] Comment on above: Order Comment: No: D o not add to previous draw Performed By: #### 5 6101, 56940, 31460, 09382, 74276, 21285, 84936 #### [facility] [address] [place] [address], [facility] CBC W/DIFFon 10-29-2019 ABS BASOPHILS 0.1 10*3/uL Normal 0.0-0.2 The [facility] Comment on above: Order Comment: No: D o not add to previous draw Performed By: #### 8 4511 #### [facility] [address] [place] [address], [facility] ABS IMM GRANS 0.2 10*3/uL Normal 0.0-0.2 The [facility] Comment on above: Order Comment: No: D o not add to previous draw Performed By: #### 8 4511 #### [facility] [address] [place] [address], [facility] ABS NEUTROPHILS 12.1 10*3/uL High 1.6-7.6 The [facility] Comment on above: Order Comment: No: D o not add to previous draw Performed By: #### 8 4511 #### [facility] [address] [place] [address], [facility] Basophils/100 WBC (Bld) 0.4 % Normal 0.0-1.0 [facility] Comment on above: Order Comment: No: D o not add to previous draw Performed By: #### 8 4511 #### [facility] [address] [place] [address], [facility] MAXINE CELLS Moderate Normal [facility] Comment on above: Order Comment: No: D o not add to previous draw Performed By: #### 8 4511 #### [facility] [address] [place] [address], [facility] Eosinophils (Bld) [#/Vol] 0.0 10*3/uL Normal 0.0-0.5 [facility] Comment on above: Order Comment: No: D o not add to previous draw Performed By: #### 8 4511 #### [facility] [address] [place] [address], [facility] Eosinophils/100 WBC (Bld) 0.0 % Normal 0.0-6.0 [facility] Comment on above: Order Comment: No: D o not add to previous draw Performed By: #### 8 4511 #### [facility] [address] [place] [address], [facility] Erythrocyte distribution width (RBC) [Ratio] 14.2 % Normal 11.5-15.0 [facility] Comment on above: Order Comment: No: D o not add to previous draw Performed By: #### 8 4511 #### [facility] [address] [place] [address], [facility] Hematocrit (Bld) [Volume fraction] 34.8 % Low 39.0-50.0 [facility] Comment on above: Order Comment: No: D o not add to previous draw Performed By: #### 8 4511 #### [facility] [address] [place] [address], [facility] Hemoglobin (Bld) [Mass/Vol] 12.3 g/dL Low 13.0-17.0 [facility] Comment on above: Order Comment: No: D o not add to previous draw Performed By: #### 8 4511 #### [facility] [address] [place] [address], [place] IMM PLATELET FRAC 7.9 % High 0.8-6.3 The [facility] Comment on above: Order Comment: No: D o not add to previous draw Performed By: #### 8 4511 #### [facility] [address] [place] [address], [place] IMMATURE GRANS 1.1 % High 0.0-1.0 [facility] Comment on above: Order Comment: No: D o not add to previous draw Performed By: #### 8 4511 #### [facility] [address] [place] [address], [facility] Lymphocytes (Bld) [#/Vol] 0.7 10*3/uL Low 1.2-4.0 [facility] Comment on above: Order Comment: No: D o not add to previous draw Performed By: #### 8 4511 #### [facility] [address] [place] [address], [facility] Lymphocytes/100 WBC (Bld) 5.2 % Low 20.0-45.0 [facility] Comment on above: Order Comment: No: D o not add to previous draw Performed By: #### 8 4511 #### [facility] [address] [place] [address], [facility] MCH (RBC) [Entitic mass] 31.2 pg Normal 27.0-33.0 [facility] Comment on above: Order Comment: No: D o not add to previous draw Performed By: #### 8 4511 #### [facility] [address] [place] [address], [facility] MCHC (RBC) [Mass/Vol] 35.3 g/dL High 32.0-35.0 [facility] Comment on above: Order Comment: No: D o not add to previous draw Performed By: #### 8 4511 #### [facility] [address] [place] [address], [facility] MCV (RBC) [Entitic vol] 88.3 fL Normal 82.0-98.0 [facility] Comment on above: Order Comment: No: D o not add to previous draw Performed By: #### 8 4511 #### [facility] [address] [place] [address], [facility] Monocytes (Bld) [#/Vol] 0.5 10*3/uL Normal 0.1-1.0 [facility] Comment on above: Order Comment: No: D o not add to previous draw Performed By: #### 8 4511 #### [facility] [address] [place] [address], [facility] MONOS 3.4 % Low 5.0-12.0 [facility] Comment on above: Order Comment: No: D o not add to previous draw Performed By: #### 8 4511 #### [facility] [address] [place] [address], [facility] Neutrophils (Bld) [#/Vol] Slight Normal [facility] Comment on above: Order Comment: No: D o not add to previous draw Performed By: #### 8 4511 #### [facility] [address] [place] [address], [facility] Neutrophils/100 WBC (Bld) 89.9 % High 40.0-72.0 [facility] Comment on above: Order Comment: No: D o not add to previous draw Performed By: #### 8 4511 #### [facility] [address] [place] [address], [facility] Nucleated RBC/100 WBC (Bld) [Ratio] 0 % Normal 0-0 [facility] Comment on above: Order Comment: No: D o not add to previous draw Performed By: #### 8 4511 #### [facility] [address] [place] [address], [facility] OTHER 2 Checked by Jennifer Cabrera M.D. Normal [facility] Comment on above: Order Comment: No: D o not add to previous draw Result Comment: Resu lt changed by LIOR on 10/31/2019 14:05. The previous value was Preliminary report; verified report to follow. Performed By: #### 8 4511 #### [facility] [address] [place] [address], [place] PLAT CNT 76 10*3/uL Low 150-400 [facility] Comment on above: Order Comment: No: D o not add to previous draw Performed By: #### 8 4511 #### [facility] [address] [place] [address], [facility] POIK Moderate Normal [facility] Comment on above: Order Comment: No: D o not add to previous draw Performed By: #### 8 4511 #### [facility] [address] [place] [address], [place] RBC (Bld) [#/Vol] 3.94 10*6/uL Low 4.20-5.70 The [facility] Comment on above: Order Comment: No: D o not add to previous draw Performed By: #### 8 4511 #### [facility] [address] [place] [address], [facility] TARGET CELLS Slight Normal The [facility] Comment on above: Order Comment: No: D o not add to previous draw Performed By: #### 8 4511 #### [facility] [address] [place] [address], [place] TOXIC GRANULATION Marked Normal The [facility] Comment on above: Order Comment: No: D o not add to previous draw Performed By: #### 8 4511 #### [facility] [address] [place] [address], [facility] WBC (Bld) [#/Vol] 13.45 10*3/uL High 4.00-10.60 [facility] Comment on above: Order Comment: No: D o not add to previous draw Performed By: #### 8 4511 #### [facility] [address] [place] [address], [facility] LACTATE BLOODon 10-29-2019 Lactate [Moles/Vol] 1.3 mmol/L Normal 0.5-2.2 The [facility] Comment on above: Order Comment: No: D o not add to previous draw Performed By: #### 5 6101, 36462, 42862, 23267, 97324, 96115, 37540 #### [facility] [address] [place] [address], [facility] LIVER BATTERYon 10-29-2019 Albumin [Mass/Vol] 2.1 g/dL Low 3.5-5.7 [facility] Comment on above: Order Comment: No: D o not add to previous draw Performed By: #### 5 6101, 95713, 51214, 31869, 10794, 26526, 75681 #### [facility] [address] [place] [address], [facility] ALKALINE PHOSPH 133 IU/L High 34-104 [facility] Comment on above: Order Comment: No: D o not add to previous draw Performed By: #### 5 6101, 33567, 31687, 01623, 23448, 64691, 53610 #### [facility] [address] [place] [address], [facility] ALT [Catalytic activity/Vol] 34 U/L Normal 7-52 [facility] Comment on above: Order Comment: No: D o not add to previous draw Performed By: #### 5 6101, 04308, 29974, 66561, 01328, 10785, 52844 #### [facility] [address] [place] [address], [facility] AST [Catalytic activity/Vol] 23 U/L Normal 13-39 [facility] Comment on above: Order Comment: No: D o not add to previous draw Performed By: #### 5 6101, 54830, 77163, 32898, 30147, 03790, 16994 #### [facility] [address] [place] [id number], [facility] Bilirubin [Mass/Vol] 3.0 mg/dL High 0.3-1.0 [facility] Comment on above: Order Comment: No: D o not add to previous draw Performed By: #### 5 6101, 96862, 67487, 42352, 95442, 75835, 66997 #### [facility] [address] [place] [address], [facility] Bilirubin.direct [Mass/Vol] 2.2 mg/dL High 0.0-0.2 [facility] Comment on above: Order Comment: No: D o not add to previous draw Performed By: #### 5 6101, 72691, 77318, 30702, 31654, 34152, 09630 #### [facility] [address] [place] [address], [facility] Protein [Mass/Vol] 4.7 g/dL Low 6.0-8.3 The [facility] Comment on above: Order Comment: No: D o not add to previous draw Performed By: #### 5 6101, 55617, 25685, 87869, 29610, 59101, 82632 #### [facility] [address] MAGNESIUM BLOODon 10-29-2019 Magnesium [Mass/Vol] 1.9 mg/dL Normal 1.9-2.7 [facility] Comment on above: Order Comment: No: D o not add to previous draw Performed By: #### 8 4511 #### [facility] [address] [place] [address], [facility] PHOSPHORUS BLOODon 9 Phosphate [Mass/Vol] 3.5 mg/dL Normal 2.5-5.0 [facility] Comment on above: Order Comment: No: D o not add to previous draw Performed By: #### 5 6101, 89601, 91258, 96298, 48667, 79023, 11505 #### [facility] [address] [place] [address], [facility] UFH HEPARIN ASSAYon 10-29-20 19 UNFRACTIONATED HEPARIN 0.31 IU/mL Normal 0.30-0.70 [facility] Comment on above: Result Comment: [place] roxaban and Apixaban will interfere with the anti Xa assay used to monitor UFH and LMWH. Performed By: #### 5 6101, 62492, 21215, 74616, 17577, 99451, 41055 #### [facility] [address] UNFRACTIONATED HEPARIN <0.10 Critically low 0.30-0.70 [facility] Comment on above: Result Comment: [place] roxaban and Apixaban will interfere with the anti Xa assay used to monitor UFH and LMWH. RESULTS CHECKED AND CALLED. ACCURATELY READ BACK BY MATTHEW HERNANDEZ RN AT 13:10 Performed By: #### 5 6101, 33014, 79246, 59756, 30325, 39440, 13489 #### [facility] [address] [facility]. [address] UNFRACTIONATED HEPARIN <0.10 Critically low 0.30-0.70 [facility] Comment on above: Result Comment: [place] roxaban and Apixaban will interfere with the anti Xa assay used to monitor UFH and LMWH. RESULTS CHECKED AND CALLED. ACCURATELY READ BACK BY BRANDON VAN RN AT 0532. Performed By: #### 5 6101, 51795, 73630, 85153, 10082, 09712, 13653 #### [facility] [address] *BLOOD CULTUREon 10-28-2019 Bacteria identified Cx Nom (Bld) Clinical Report: (D) Specimen: BLOOD CULTURE Collected: 10/28/2019 11:05 Status: Final Last Updated: 11/02/2019 14:57 CULT RES (Final) No Growth Day 5 Normal [facility] Comment on above: Performed By: #### 5 6101, 35308, 16211, 80051, 24268, 10454, 63334 #### [facility] [address] [facility]. [address] ANTITHROMBIN III ACTIVITYon 10-28-2019 AT 3 ACTIVITY 69 % Low 70-120 The [facility] Comment on above: Performed By: #### 5 6101, 10216, 47536, 85916, 00953, 92012, 48851 #### [facility] [address] [place], [place] [id number] [place] [address] APC RESISTANCE ASSAYon 10-28 APC RESISTANCE 2.4 RATIO Normal 2.0-4.9 The [facility] Comment on above: Performed By: #### 5 6101, 43304, 00384, 38979, 54377, 17279, 67199 #### [facility] [address] APTTon 10-28-2019 aPTT Coag (Bld) [Time] 33.7 s Normal 25.0-35.0 [facility] Comment on above: Order Comment: No: D [...] THIS PURPOSE. Performed By: #### 5 6101, 28403, 46284, 31025, 66726, 20825, 49040 #### [facility] [address] ARTERIAL BLOOD GAS WITH ICAo n 10-28-2019 BASE EXCESS 7 mmol/L High -2-3 The [facility] Comment on above: Performed By: #### 8 4511 #### [facility] [address] [place] [address], [facility] DELIVERY SYSTEMS RA Normal The [facility] Comment on above: Performed By: #### 8 4511 #### [facility] [address] [place] [address], [facility] HCO3 (Bld) [Moles/Vol] 31 mmol/L Critically high 21-28 [facility] Comment on above: Performed By: #### 8 4511 #### [facility] [address] [place] [address], [place] IONIZED CALCIUM 1.09 mmol/L Low 1.13-1.32 [facility] Comment on above: Performed By: #### 8 4511 #### [facility] [address] [place] [address], [place] MODALITY RA Normal [facility] Comment on above: Performed By: #### 8 4511 #### [facility] [address] [place] [address], [place] Oxygen (Bld) [Partial pressure] 66 mm[Hg] Low 83-108 The [facility] Comment on above: Performed By: #### 8 4511 #### [facility] [address] [place] [address], [place] Oxygen saturation in Blood 91.4 % Low 94.0-97.0 [facility] Comment on above: Performed By: #### 8 4511 #### [facility] [address] [place] [address], [place] PCO2 40 mmHg Normal 35-45 [facility] Comment on above: Performed By: #### 8 4511 #### [facility] [address] [place] [address], [place] pH (Bld) 7.49 [pH] High 7.35-7.45 [facility] Comment on above: Performed By: #### 8 4511 #### [facility] [address] [place] [address], [place] BASIC METABOLIC PANELon 11-2 Calcium [Mass/Vol] 7.8 mg/dL Low 8.6-10.3 [facility] Comment on above: Order Comment: No: D o not add to previous draw Performed By: #### 8 4511 #### [facility] [address] [place] [address], [place] Chloride [Moles/Vol] 91 mmol/L Low 98-107 [facility] Comment on above: Order Comment: No: D o not add to previous draw Performed By: #### 8 4511 #### [facility] [address] [place] [address], [place] CO2 [Moles/Vol] 28 mmol/L Normal 21-31 The [facility] Comment on above: Order Comment: No: D o not add to previous draw Performed By: #### 8 4511 #### [facility] [address] [place] [address], [place] Creatinine [Mass/Vol] 0.50 mg/dL Low 0.70-1.30 [facility] Comment on above: Order Comment: No: D o not add to previous draw Performed By: #### 8 4511 #### [facility] [address] [place] [address], [place] GFR/1.73 sq M predicted among blacks MDRD (S/P/Bld) [Vol rate/Area] mL/min/{1.73_m2} Normal >60 [facility] Comment on above: Order Comment: No: D o not add to previous draw Performed By: #### 8 4511 #### [facility] [address] [place] [address], [place] GFR/1.73 sq M predicted among non-blacks MDRD (S/P/Bld) [Vol rate/Area] mL/min/{1.73_m2} Normal >60 [facility] Comment on above: Order Comment: No: D o not add to previous draw Performed By: #### 8 4511 #### [facility] [address] [place] [address], [place] Glucose [Mass/Vol] 137 mg/dL High 70-100 [facility] Comment on above: Order Comment: No: D o not add to previous draw Performed By: #### 8 4511 #### [facility] [address] Potassium [Moles/Vol] 3.8 mmol/L Normal 3.5-5.1 [facility] Comment on above: Order Comment: No: D o not add to previous draw Performed By: #### 8 4511 #### [facility] [address] [place] [address], [facility] Sodium [Moles/Vol] 125 mmol/L Low 136-145 The [facility] Comment on above: Order Comment: No: D o not add to previous draw Performed By: #### 8 4511 #### [facility] [address] [facility]. [address] Urea nitrogen [Mass/Vol] 9 mg/dL Normal 7-25 [facility] Comment on above: Order Comment: No: D o not add to previous draw Performed By: #### 8 4511 #### [facility] [address] [place] [address], [facility] CBC W/DIFFon 10-28-2019 ABS BASOPHILS 0.1 10*3/uL Normal 0.0-0.2 The [facility] Comment on above: Performed By: #### 5 0103 #### [facility] [address] [place] [address], [facility] ABS IMM GRANS 0.1 10*3/uL Normal 0.0-0.2 [facility] Comment on above: Performed By: #### 5 0103 #### [facility] [address] [place] [place] [address], [facility] ABS NEUTROPHILS 12.6 10*3/uL High 1.6-7.6 [facility] Comment on above: Performed By: #### 5 0103 #### [facility] [address] [place] [address], [facility] Basophils/100 WBC (Bld) 0.4 % Normal 0.0-1.0 [facility] [facility] [place] Comment on above: Performed By: #### 5 0103 #### [facility] [address] [place] [address], [facility] Eosinophils (Bld) [#/Vol] 0.0 10*3/uL Normal 0.0-0.5 The [facility] Comment on above: Performed By: #### 5 0103 #### [facility] [address] [place] [address], [facility] Eosinophils/100 WBC (Bld) 0.1 % Normal 0.0-6.0 The [facility] Comment on above: Performed By: #### 5 0103 #### [facility] [address] [place] [address], [facility] Erythrocyte distribution width (RBC) [Ratio] 13.6 % Normal 11.5-15.0 The [facility] Comment on above: Performed By: #### 5 0103 #### [facility] [address] Hematocrit (Bld) [Volume fraction] 36.1 % Low 39.0-50.0 The [facility] Comment on above: Performed By: #### 5 0103 #### [facility] [address] [place] [address], [facility] Hemoglobin (Bld) [Mass/Vol] 12.8 g/dL Low 13.0-17.0 [facility] Comment on above: Performed By: #### 5 0103 #### [facility] [address] [place] [address], [facility] IMM PLATELET FRAC 5.9 % Normal 0.8-6.3 [facility] Comment on above: Performed By: #### 5 0103 #### [facility] [address] [place] [address], [facility] IMMATURE GRANS 0.9 % Normal 0.0-1.0 The [facility] Comment on above: Performed By: #### 5 0103 #### [facility] [address] [place] [address], [facility] Lymphocytes (Bld) [#/Vol] 0.6 10*3/uL Low 1.2-4.0 The [facility] Comment on above: Performed By: #### 3 #### [facility] [address] [place] [address], [facility] Lymphocytes/100 WBC (Bld) 4.5 % Low 20.0-45.0 The [facility] Comment on above: Performed By: #### 102 #### [facility] [address] MCH (RBC) [Entitic mass] 31.0 pg Normal 27.0-33.0 The [facility] Comment on above: Performed By: #### 102 #### [facility] [address] MCHC (RBC) [Mass/Vol] 35.5 g/dL High 32.0-35.0 The [facility] Comment on above: Performed By: #### 102 #### [facility] [address] [place] [address], [facility] MCV (RBC) [Entitic vol] 87.4 fL Normal 82.0-98.0 The [facility] Comment on above: Performed By: #### 5 3 #### [facility] [address] [place] [address], [facility] Monocytes (Bld) [#/Vol] 0.6 10*3/uL Normal 0.1-1.0 The [facility] Comment on above: Performed By: #### 3 #### [facility] [address] [place] [address], [facility] MONOS 4.6 % Low 5.0-12.0 The [facility] Comment on above: Performed By: #### 5 3 #### [facility] [address] [place] [address], [facility] Neutrophils/100 WBC (Bld) 89.5 % High 40.0-72.0 [facility] Comment on above: Performed By: #### 5 0103 #### [facility] [address] [place] [address], [facility] Nucleated RBC/100 WBC (Bld) [Ratio] 0 % Normal 0-0 The [facility] Comment on above: Performed By: #### 5 0103 #### [facility] [address] [place] [address], [facility] PLAT CNT 98 10*3/uL Low 150-400 The [facility] Comment on above: Performed By: #### 5 0103 #### [facility] [address] [place] [address], [facility] RBC (Bld) [#/Vol] 4.13 10*6/uL Low 4.20-5.70 The [facility] Comment on above: Performed By: #### 5 0103 #### [facility] [address] [facility]. [place] [id number], [facility] WBC (Bld) [#/Vol] 14.05 10*3/uL High 4.00-10.60 [facility] Comment on above: Performed By: #### 5 0103 #### [facility] [address] [facility] [place] [id number], [facility] FACTOR IIon 10-28-2019 FACTOR II 69 % Normal 65-120 The [facility] Comment on above: Performed By: #### 5 6101, 25808, 64085, 49456, 77327, 08345, 49544 #### [facility] [address] [place] [id number], [facility] HOMOCYSTEINEon 10-28-2019 HOMOCYSTEINE 8.1 umol/L Normal 4.0-12.0 The [facility] Comment on above: Performed By: #### 5 6101, 39754, 50005, 26205, 89416, 50510, 74063 #### [facility] [address] [place] [address], [facility] LACTATE BLOODon 10-28-2019 Lactate [Moles/Vol] 1.2 mmol/L Normal 0.5-2.2 [facility] Comment on above: Order Comment: No: D o not add to previous draw Performed By: #### 1 0054 #### [facility] [address] [place] [address], [place] LIVER BATTERYon 10-28-2019 Albumin [Mass/Vol] 2.4 g/dL Low 3.5-5.7 [facility] Comment on above: Order Comment: No: D o not add to previous draw Performed By: #### 8 4511 #### [facility] [address] [place] [address], [facility] ALKALINE PHOSPH 187 IU/L High 34-104 [facility] Comment on above: Order Comment: No: D o not add to previous draw Performed By: #### 8 4511 #### [facility] [address] [place] [address], [place] ALT [Catalytic activity/Vol] 50 U/L Normal 7-52 The [facility] Comment on above: Order Comment: No: D o not add to previous draw Performed By: #### 8 4511 #### [facility] [address] [place] [address], [place] AST [Catalytic activity/Vol] 26 U/L Normal 13-39 The [facility] Comment on above: Order Comment: No: D o not add to previous draw Performed By: #### 8 4511 #### [facility] [address] [place] [address], [place] Bilirubin [Mass/Vol] 3.3 mg/dL High 0.3-1.0 The [facility] Comment on above: Order Comment: No: D o not add to previous draw Performed By: #### 8 4511 #### [facility] [address] [place] [address], [facility] Bilirubin.direct [Mass/Vol] 2.2 mg/dL High 0.0-0.2 The [facility] Comment on above: Order Comment: No: D o not add to previous draw Performed By: #### 8 4511 #### [facility] [address] [place] [address], [facility] Protein [Mass/Vol] 5.4 g/dL Low 6.0-8.3 The [facility] Comment on above: Order Comment: No: D o not add to previous draw Performed By: #### 8 4511 #### [facility] [address] [place] [address], [facility] MAGNESIUM BLOODon 10-28-2019 Magnesium [Mass/Vol] 1.9 mg/dL Normal 1.9-2.7 The [facility] Comment on above: Order Comment: No: D o not add to previous draw Performed By: #### 8 4511 #### [facility] [address] Operative Reporton 9 Operative Report MR#: [id number] I [facility] Pt. Name: Miguel Baron Room #: ANSLEY [id number] Discharge Date: Birthdate: 1960 OPERATIVE REPORT DATE [...] Dawn MD Date Trans: 10/28/2019 05:02 P/mmo [id number] cc: Jersey Whittaker D.O. [address] [facility] A [facility] [phone] Wandy Magana M.D. E R Physican...do Not Send [address] [facility] [address] Normal The [facility] PHOSPHORUS BLOODon 9 Phosphate [Mass/Vol] 3.8 mg/dL Normal 2.5-5.0 The [facility] Comment on above: Order Comment: No: D o not add to previous draw Performed By: #### 8 4711 #### [address] PORTABLE CHEST 1 VIEWon 10-01 PORTABLE CHEST 1 VIEW [facility] Department of Radiology [address] [place] [id number] ======== Patient Name: MIGUEL BARON : 1960 Sex: M Age: Race: White Pt. Location: [place] [address] Patient Status: I Ordered Date: 10/28/2019 2:50:00 [...] findings. Electronically signed by:Wild Saravia. Transcribed by: [email or web address], User Resident: NELSY KENDRICK Electronically Signed by: WILD SARAVIA @ 10/28/2019 04:50 PM I personally read this/these film(s) with this resident Normal The [facility] Comment on above: Order Comment: Check NG Tube Position PROTEIN C ACTIVITYon 019 Protein [Mass/Vol] 47 % Critically low 60-140 Th e [facility] Comment on above: Performed By: #### 5 6101, 09407, 65243, 93591, 60142, 35224, 93630 #### [facility] [address] [facility]. [address] PROTEIN C ANTIGENon 10-28-20 19 Protein [Mass/Vol] 53 % Low 65-120 The [facility] Comment on above: Performed By: #### 5 6101, 37471, 70883, 89029, 15134, 92727, 58386 #### [facility] [address] [place] [address], [facility] PROTEIN S ACTIVITYon 019 Protein [Mass/Vol] 70 % Normal 60-165 The [facility] Comment on above: Performed By: #### 5 6101, 03569, 25780, 40935, 38219, 55426, 28935 #### [facility] [address] [place] [address], [facility] PROTHROMBIN TIMEon 9 INR Coag (PPP) [Relative time] 1.27 {INR} High 0.91-1.16 The [facility] Comment on above: Order Comment: No: D [...] CHEST 1995;108:231S-246S. Performed By: #### 5 6101, 21893, 19013, 51580, 19887, 31599, 32078 #### [facility] [address] [place] [address], [facility] PT Coag (PPP) [Time] 16.0 s High 12.3-14.8 The [facility] Comment on above: Order Comment: No: D o not add to previous draw Result Comment: ALL RESULTS MUST BE INTERPRETED WITH RESPECT TO BLOOD DRAWING ARTIFACT OR DILUTION ERROR OF ANTICOAGULANT AT THE TIME OF SAMPLING. Performed By: #### 5 6101, 76154, 13330, 48915, 07620, 29111, 46129 #### [facility] [address] UFH HEPARIN ASSAYon 10-28-20 19 UNFRACTIONATED HEPARIN <0.10 Critically low 0.30-0.70 The [facility] Comment on above: Result Comment: [place] roxaban and Apixaban will interfere with the anti Xa assay used to monitor UFH and LMWH. RESULTS CHECKED AND CALLED. ACCURATELY READ BACK BY BRANDON VAN RN AT 2150 ACTUAL UFH VALUE = 0.00 Performed By: #### 8 4511 #### [facility] [address] UNFRACTIONATED HEPARIN <0.10 Critically low 0.30-0.70 The [facility] Comment on above: Result Comment: [place] roxaban and Apixaban will interfere with the anti Xa assay used to monitor UFH and LMWH. RESULTS CHECKED AND CALLED. ACCURATELY READ BACK BY MATTHEW NUR RN AT 1831 Performed By: #### 8 4511 #### [facility] [address] Vital Signs Date Time Vital Sign Value Performing Clinician Facility 08-03-2024 09:24040 Body height 187.96 cm [place] 08-03-2024 09:24040 Body mass index (BMI) [Ratio] 23.6 kg/m2 [facility] 08-03-2024 09:24040 Body weight 83.46 kg [place] 08-03-2024 09:24-0400 Diastolic blood pressure 84 mm[Hg] [facility] 08-03-2024 09:24040 Heart rate 91 /min [place] 08-03-2024 09:24-0400 Respiratory rate 12 /min [facility] 08-03-2024 09:24-0400 Systolic blood pressure 145 mm[Hg] [facility] 04-15-2024 11:07-0400 Body height 187.96 cm [place] 04-15-2024 11:07-0400 Body mass index (BMI) [Ratio] 23.8 kg/m2 [facility] 04-15-2024 11:07-0400 Body weight 83.97 kg [place] 04-15-2024 11:07-0400 Diastolic blood pressure 68 mm[Hg] [facility] 04-15-2024 11:07-0400 Heart rate 91 /min [place] 04-15-2024 11:07-0400 Respiratory rate 12 /min [facility] 04-15-2024 11:07-0400 Systolic blood pressure 127 mm[Hg] [facility] 02-13-2023 11:30-0400 Body height 187.96 cm Jersey Ball Other [employer] [facility] [employer] Other 02-13-2023 11:30-0400 Body mass index (BMI) [Ratio] 25.47 kg/m2 Jersey Ball Other [employer] [facility] [employer] Other 02-13-2023 11:30-0400 Body weight 89.99 kg Jersey Ball Other [employer] [facility] [employer] Other 02-13-2023 11:30-0400 Diastolic blood pressure 79 mm[Hg] Jersey Ball Other [employer] Other 02-13-2023 11:30-0400 Respiratory rate 12 /min Jersey Ball Other [employer] Other 02-13-2023 11:30-0400 Systolic blood pressure 125 mm[Hg] Jersey Ball Other [employer] Other 06-04-2022 13:59-0400 Blood Pressure Location Edison NILL [facility] 06-04-2022 13:59-0400 Diastolic blood pressure 84 mm[Hg] Edison NILL [facility] [place] 06-04-2022 13:59-0400 Heart rate 74 /min Edison NILL [facility] [place] 06-04-2022 13:59-0400 Respiratory rate 16 /min Edison NILL [facility] 06-04-2022 13:59-0400 Systolic blood pressure 124 mm[Hg] Edison NILL [facility] Encounters Encounter Date Encounter Type Care Provider Facility Start: 08-29-2024 End: 08-29-2024 ambulatory [facility] Work Phone: Start: 08-29-2024 End: 08-29-2024 Patient encounter procedure [facility] Physician [facility] Work Phone: Start: 08-03-2024 End: 08-03-2024 ambulatory [facility] Work Phone: Start: 08-03-2024 End: 08-03-2024 Patient encounter procedure [facility] Physician [facility] Work Phone: Start: 04-15-2024 End: 04-15-2024 ambulatory [facility] Work Phone: Start: 04-15-2024 End: 04-15-2024 Patient encounter procedure [facility] Physician [facility] Work Phone: Start: 08-12-2023 End: 08-12-2023 ambulatory Stephy Benson Other [employer] Other Start: 08-12-2023 Nursing evaluation o f patient and report Stephy Kelley [facility] Start: 04-24-2023 End: 04-25-[address] JERSEY WHITTAKER Facility:[facility] Start: 04-16-2023 End: 04-17-[address] HANSEN LISTED REQUEST Facility:[facility] Start: 02-13-2023 End: 02-13-2023 ambulatory Jersey Whittaker Other [employer] Other Start: 02-13-2023 Office outpatient vi sit 15 minutes Jersey Whittaker [facility] Start: 07-23-2022 End: 07-23-[address] EDISON SALEH . Facility:[facility] Start: 07-22-2022 Encounter for preprocedural cardiovascular examination DR EDISON SALEH . [facility] Start: 07-22-2022 Encounter for preprocedural laboratory examination DR EDISON SALEH . [facility] Start: 07-18-2022 End: 07-19-[address] EDISON SALEH . Facility:[facility] Start: 07-18-2022 End: 07-19-2022 Encounter for preprocedural cardiovascular examination DR EDISON SALEH . Facility:[facility] Start: 06-04-2022 End: 06-04-2022 Patient encounter procedure Edison SALEH General [facility] Start: 05-19-2022 End: 05-20-[address] JERSEY WHITTAKER Facility:[facility] Start: 04-14-2022 Adult health examination Karen Benson Other [employer] Other Start: 01-16-2020 End: 01-16-2020 Emergency department patient visit ALISON ARIZMENDI Facility:[facility] Start: 10-28-2019 End: 11-07-2019 Evaluation and management of inpatient PEBBLES Dobson JEREMIAS Facility:[facility] Procedures Date Procedure Procedure Detail Performing Clinician Start: 04-16-[address] [place] Comment on above: Performed By: #### [facility] DATPSA #### [facility] [address] [place] [address] [address] Mayra Zuluaga Start: 05-19-[address] CHIRAG WHITTAKER Comment on above: Performed By: #### D ATPSA #### [facility] [address] [place] [address] [address] Mayra Zuluaga Start: 11-07-2019 Antibody screen PEBBLES BUSCH Comment on above: Performed By: #### 1 0054 #### [facility] [address] Start: 11-01-2019 Antibody screen PEBBLES BUSCH Comment on above: Performed By: #### 5 6101, 89851, 47919, 49289, 02762, 96023, 88409 #### [facility] [address] Start: 11-01-2019 TRANSFUSE NONAUT RED BLOOD [...] of Treatment Date Care Activity Detail Author [facility] Immunizations Immunization Date Immunization Notes Care Provider Fa cilialma 08-12-2023 influenza virus vaccine, unspecified formulation [facility] 08-12-2023 influenza, high dose seasonal, preservative-free Stephy Benson Other [facility] [employer] Other 08-12-2023 Prevnar 20 Stephy Benson Other [facility] 08-18-2022 influenza virus vaccine, split virus (incl. purified surface antigen) Stepyh Benson Other [facility] [id number] Other 08-18-2022 influenza virus vaccine, unspecified formulation [facility] 08-18-2022 influenza, injectabl e, quadrivalent, preservative free [facility] 08-18-2022 influenza, injectabl e, quadrivalent, contains preservative Stephy Benson Other [facility] [id number] Other 11-11-2021 COVID-19 Vaccine Pfi zer - Documentation Purposes Only Stephy Benson Other [facility] 08-20-2021 influenza virus vaccine, split virus (incl. purified surface antigen) Stephy Benson Other [facility] [id number] Other 08-20-2021 influenza virus vaccine, unspecified formulation [facility] 03-05-2021 COVID-19 Vaccine Pfi zer - Documentation Purposes Only Stephy Benson Other [facility] 02-11-2021 COVID-19 Vaccine Pfi zer - Documentation Purposes Only Stephy Benson Other [facility] 07-13-2020 influenza virus vaccine, split virus (incl. purified surface antigen) Stephy Benson Other [facility] [id number] Other 07-13-2020 influenza virus vaccine, unspecified formulation [facility] 03-05-2020 COVID-19 Vaccine Pfi zer - Documentation Purposes Only Stephy Benson Other [facility] 08-25-2019 influenza virus vaccine, split virus (incl. purified surface antigen) Stephy Benson Other [employer] Other 08-25-2019 influenza virus vaccine, unspecified formulation [facility] 08-08-2018 influenza virus vaccine, split virus (incl. purified surface antigen) Stephy Benson Other [employer] Other 08-08-2018 influenza virus vaccine, unspecified formulation [facility] 09-02-2017 tetanus and diphther ia toxoids, adsorbed, preservative free, for adult use (5 Lf of tetanus toxoid and 2 Lf of diphtheria toxoid) Stephy Benson Other [facility] 08-30-2016 tetanus and diphther ia toxoids, adsorbed, preservative free, for adult use (5 Lf of tetanus toxoid and 2 Lf of diphtheria toxoid) Stephy Benson Other [facility] 09-07-2013 tetanus and diphther ia toxoids, adsorbed, preservative free, for adult use (5 Lf of tetanus toxoid and 2 Lf of diphtheria toxoid) Stephy Benson Other [facility] Payers Date Payer Category Payer Private Health Insurance [id number] 1961 Medicare [id number] 1961 Private Health Insurance [id number] 1961 Self-pay 1960 Unknown [id number] [id number] 1960 Unknown [id number] 2.16.8 [id number] 1960 Unknown [id number] 2.16.84 [id number] 1960 Unknown [id number] 2.16.84 [id number] 1960 Unknown [id number] 2.16.84 [id number] Unknown [id number] 2.16.84 [id number] Unknown [id number] 2.16.84 [id number] Social History Date Type Detail Facility Start: 06-04-2022 Tobacco smoking status Heavy t obacco smoker (finding) [facility] Tobacco smoking status Never Gener al Surgery [facility] Sex Assigned At Male Genera l Surgery [facility] Start: 1960 Sex Assigned At Male F [facility] Functional Status Date Assessment Result Facility 06-04-2022 Functional Status N/A [facility] Clinical Notes 06-05-2022 to 02-13-2023 Note Date [...] to respiratory infections, vascular disease and cancers. [employer] Other 08-24-2022 NoteOPERATIVE NOTE OPERATION DATE: 07/23/2022 [...] in good condition. CC: Jersey Whittaker D.O.[facility] [id number] NoteEXAMINATION: XR CHEST 2 V HISTORY: Nicotine [...] authenticated by: DRAGAN PORTILLO Date: 2022-07-19 07:25[facility] [id number] NoteChief Complaint consultation for positive Cologuard [facility] Staff 62 year old male presents [...] Primary malignant marina (more content not included)...[facility] Comment on above:Result Comment: Electronically Signed By: NICKY DALE, Edison Ernandez\Date and Time Signed: 06/05/22 15:05 EDTEvaluation + Plan note No data available for this section [facility] Surgery [place] [facility]No [facility] [employer] Other Evaluation note* Diagnosis Onset Date Resolution Status Benign prostatic hyperplasia with lower urinary tract symptoms acute Lumbar spondylosis acute Nicotine addiction acute Medicare annual wellness visit, initial noneactive Screening PSA (prostate specific antigen) noneactive [facility] Work Phone: Evaluation noteNo assessment information available [facility] Work Phone: Evaluation note* Diagnosis Onset Date Resolution Status Allergic contact dermatitis acute Pruritic rash acute [facility] Work Phone: History general Narrative - Reported* [...] ADENOMA Hospitalization History SEE SURGICAL HX [facility] [employer] Other Hospital Discharge instructions No data available for this section General Surgery [place] Progress note No data available for this [...] 2023 10:05am Hospital Course Note MR#: [id number] [facility] Pt. Name: Miguel Baron Admitted: 10/28/2019 Discharged: [...] 59-year-old male who presented to [facility] as a transfer from an outside [...] section and content) DATE CREATED AUTHOR 12/08/2019 [facility] DATE CREATED AUTHOR AUTHOR'S ORGANIZ ATION 01/19/2020 [facility] DATE CREATED AUTHOR AUTHOR'S ORGANIZ ATION 06/20/2022 [facility] DATE CREATED AUTHOR AUTHOR'S ORGANIZ ATION 08/06/2022 [facility] DATE CREATED AUTHOR AUTHOR'S ORGANIZ ATION 05/08/2023 [facility] (unrecognized sect ion and content) [...] BE BASED ON THE PRIMARY CLINICAL RECORDS. [facility] [employer] [facility]. provides no warranty or guarantee of the accuracy or completeness of information in this document.
--- NOTE | 2025-05-19 08:25 | CT_ITS ---
The [address] [address] Patient Name: MIGUEL VENEGAS MRN: [id number] date: 1960 Sex: M Assigned Patient Location: CT Current Patient Location: CT Accession/Order Number: [id number] Exam Date: 05/19/2025 09:34 Report Date: 05/19/2025 09:41 At the request of: XI YO DO Procedure: CT lung screening low-dose LOW-DOSE SCREENING CHEST CT WITHOUT CONTRAST COMPARISON: 05/18/2024 CLINICAL DATA: Current smoker for approximately 50 years. Spiral axial unenhanced low-dose images were obtained through the chest. Images were reviewed using both narrow and wide window settings. This CT exam was performed using one or more following dose reduction techniques: Automated exposure control, adjustment of the mA and/or kV according to patient size, or use of iterative reconstruction technique. The heart is top normal in size. There is no pericardial effusion. Coronary artery disease is seen. There is no aortic aneurysm. Minor plaque is present at the aortic arch. There are a few nonpathologic lymph nodes. Bilateral gynecomastia is seen. There is thoracolumbar dextroscoliotic curvature and mild endplate spurring. Scarring is again visualized at the lung apices. No consolidation, pleural effusion or pneumothorax is identified. No developing pulmonary nodularity is seen. Limited imaging through the upper abdomen shows no contributory findings. CT/CT lung screening low-dose IMPRESSION: NO DEVELOPING PULMONARY NODULARITY. Lung RADS category 1 - negative Twelve-month low-dose CT follow-up suggested. Impression dictated by: Maral Haile M.D. 05/19/2025 9:41 AM Dictation Location: [place] [address] Electronically authenticated by: [id number] Y Date: 05/19/2025 09:41
== END 2025-05-19 08:21 | disposition home or self-care (01) ==
LOC: CT 08:20
PROVIDERS: PCP Internal Medicine; Visit Provider Internal Medicine
DX: F17.210 Nicotine dependence, cigarettes, uncomplicated (principal)
CPT/HCPCS: 71271

== ENCOUNTER 2025-07-25 09:38 | Outpatient (OUT) | payer MEDICARE, OTHER, SELFPAY ==
--- OUTSIDE RECORDS SUMMARY | 2025-07-25 09:40 | XMS_ITS | Clinical Summary ---
Author Organization [facility] Address [address] [place] [address] Phone Care Team Providers Care Electroencephalographic Technician Name Role Phone Unavailable Primary Care Provider Unavailabl e Social History Tobacco Use Types Packs/Day Years Used Date Smoking Tobacco: Never Assessed Sex and Gender Information Value Date Recorded Sex Assigned at Not on file Legal Sex Male 9:07 PM EST Gender Identity Not on file Sexual Orientation Not on file Plan of Treatment Not on file
--- OUTSIDE RECORDS SUMMARY | 2025-07-25 09:40 | XMS_ITS | Clinical Summary ---
Author Organization [facility] Address [address] [place] [address] Care Team Providers Care Television Maintenance Worker Name Role Phone Unavailable Primary Care Provider [...]
--- OUTSIDE RECORDS SUMMARY | 2025-07-25 09:40 | XMS_ITS | Clinical Summary ---
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 Not on [employer] Not [...] 2008 Shingrix Vaccine (1 of 2) 2008 Advance Directive Discussion 11/30/2024 Influenza Vaccine (#1) 2025 10/05/2002 RSV Vaccine (1 - 1-dose 75+ series) [id number] [place] [address] [facility] PPO
--- OUTSIDE RECORDS SUMMARY | 2025-07-25 09:45 | XMS_ITS | CCD ---
Author Organization [facility] Care Team Providers Care Household Assistant Name Role Phone PEBBLES BUSCH Admitting Unavailable PEBBLES BUSCH Attending Unavailable WANDY MAGANA Referring Unavailable JERSEY WHITTAKER Primary Care Unavailable [place] Procedure Practitioner Unavailab PEBBLES Morgan Surgeon Unavailable [...] DR LAYNE Primary Care Unavailable BALL, DR LYANE Admitting Unavailable NILL ., DR HOGAN Consulting Unavailable NILL ., DR HOGAN Admitting Unavailable BALL, DR LAYNE Primary Care Unavailable NILL ., DR HOGAN Attending Unavailable AGUBOSIM, MARQUISE Consulting Unavailable BRIE, TIN Consulting Unavailable LANGENBERG, TWILA Consulting Unavailable Stephy Benson Unavailable Edison SALEH Attending Unavailable Allergies Allergy Classification Reported Allergen(s) Allergy Type Date of Onset Reaction(s) Facility (1 source) patient allergy list reviewed by nurse or physicia Propensity to adverse reactions 4 Comment:Done [place] Other (1 source) No Known Medication Allergies; Translations: [No Known Medication Allergies] Propensity to adverse reactions (disorder) [facility] Repository Medications Current Medications Medication Drug Class(es) Dates [...] twice daily for 7 days Jan, Active [place] (No Known Home Meds) (1 source) Start: 04-15-2024 [place] (No Known Home Meds) Active April 15, [...] 15, 2024 11:05am take 1 capsule by [facility] every twenty-four hours Tamsulosin HCl 0.4 MG [...] cause] 08-03-2024 Episodic Coagulation and hemorrhagic disorders (5 sources) Protein C deficiency disease; 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 Chronic Diverticulosis and diverticulitis (1 source) Diverticulosis of large intestine without perforation or abscess without bleeding; Translations: [DVRTCLOS LG INT NO PERF/ABSC W/O BL] Onset: 07-25-2022 Chronic Hyperplasia of prostate (11 sources) Nocturia due to benign prostatic hypertrophy; [...] current use of drug therapy; Translations: [Other prison (current) drug therapy] Episodic Other and unspecified benign neoplasm (2 sources) History of polyp of colon; Translations: [Personal history of adenomatous and serrated colon polyps] Onset: 07-05-2025 Episodic Other and unspecified benign neoplasm (1 source) Adenomatous polyp of rectum 08-05-2022 Episodic Other gastrointestinal disorders (3 sources) Abnormal feces; Translations: [Other fecal abnormalities] Episodic Other gastrointestinal disorders (1 source) Hyperplastic polyp of intestine 08-05-2022 Episodic Other inflammatory condition of skin (1 [...] Episodic Other nutritional; endocrine; and metabolic disorders (2 sources) Overweight; Translations: [Overweight] 07-05-2025 Episodic Other nutritional; endocrine; and metabolic disorders (1 source) Overweight in adulthood with body mass index of 25 or more but less than 30 07-05-2025 Episodic Other screening for suspected conditions (not mental disorders or infectious disease) (3 sources) Stool DNA-based colorectal cancer screening positive; Translations: [Encounter for screening for malignant neoplasm of prostate] 06-04-2022 Episodic Other skin disorders (1 source) Hypertrophic condition of skin; Translations: [Other hypertrophic disorders of the skin] Episodic Peripheral and visceral atherosclerosis (1 source) Acute vascular insufficiency of intestine 04-24-2020 Chronic Peripheral and visceral atherosclerosis (4 sources) Acute mesenteric arterial occlusion; Translations: [Acute vascular insufficiency of intestine] Onset: 09-30-2019 04-24-2020 Episodic Phlebitis; thrombophlebitis and thromboembolism (9 sources) Portal vein thrombosis; Translations: [Splenic vein thrombosis] Onset: 05-30-2020 04-24-2020 Episodic Screening and history of mental health and substance abuse codes (1 source) Tobacco use and exposure - finding 06-05-2022 Chronic Skin and subcutaneous tissue infections (4 sources) Localized infection of skin AND/OR subcutaneous tissue; Translations: [Local infection of the skin and subcutaneous tissue, unspecified] Episodic Spondylosis; intervertebral disc disorders; other back problems (9 sources) Lumbar spondylosis; Translations: [Spondylosis without myelopathy [...] Test Name Value Interpretation Reference Range Facility Ambulatory Visit Summaryon 0 07-05-2025 Ambulatory Visit Summary Ambulatory Visit Summary MIGUEL BARON :1960 Visit Date:07/05/2025 Ambulatory Visit Instructions Your Diagnosis Personal history of adenomatous and serrated colon polyps Your Care Team Attending Physician - Edison SALEH MD Primary Care Physician - JERSEY WHITTAKER DO Procedures Performed Colonoscopy (07/23/2022), Colonoscopy (03/16/2009), Excision of cyst, Exploratory laparotomy, Repair of ventral hernia. Discharge Vitals Heart Rate (Peripheral) 72 Respiratory Rate 16 Blood Pressure 130/76 Height 179 cm Height 70 in Weight 80.5 kg Weight 177.472 lb BMI 25.12 Allergies No Known Allergies No Known Medication Allergies Problems Ongoing - Any problem that you are currently receiving treatment for. Acute mesenteric arterial occlusion Benign prostatic hyperplasia BMI 25.0-25.9,adult Hyperplastic polyp of sigmoid colon Lumbar spondylosis Overweight Personal history of adenomatous and serrated colon polyps Portal vein thrombosis Positive colorectal cancer screening using Cologuard test Protein C deficiency Splenic vein thrombosis Tobacco use Tubular adenoma of rectum Patient Survey You may receive a survey via text or e-mail asking about your office visit. Please share your experience with us by completing your survey. We appreciate your feedback and thank you for choosing us for your care. Patient Portal You may access all of your results and other medical record information on our secure patient portal. If you are not signed up for this yet, please contact [employer] at [phone] to get signed up today. Language Information Language assistance services are available as needed. Delma Vivas [facility] CT LUNG CANCER SCREENINGon 0 04-24-2023 CT [...] DRAGAN PORTILLO Date: 2023-04-24 10:47 Normal [facility] CBC AUTO DIFFon 04-16-2023 BASO # 0.0 103/ul Normal 0.0-0.1 [facility] Comment on above: Performed By: #### D ATCBC #### [facility] [address] [place] [address] Dr. Mayra Zuluaga Basophils/100 WBC (Bld) 0.6 % Normal 0.2-2.0 [facility] Comment on above: Performed By: #### D ATCBC #### [facility] [address] [place] [address] Dr. Mayra Zuluaga EO # 0.1 103/ul Normal 0.0-0.7 [facility] Comment on above: Performed By: #### D ATCBC #### [facility] [address] [place] [address] Dr. Mayra Zuluaga Eosinophils/100 WBC (Bld) 2.1 % Normal 0.9-7.0 [facility] Comment on above: Performed By: #### D ATCBC #### [facility] [address] [place] [address] Dr. Mayra Zuluaga Erythrocyte distribution width (RBC) [Ratio] 13.2 % Normal 11.0-15.0 [facility] Comment on above: Performed By: #### D ATCBC #### [facility] [address] [place] [address] Dr. Mayra Zuluaga Hematocrit (Bld) [Volume fraction] 45.2 % Normal 42.0-54.0 [facility] Comment on above: Performed By: #### D ATCBC #### [facility] [address] [place] [address] Dr. Mayra Zuluaga Hemoglobin (Bld) [Mass/Vol] 15.0 g/dL Normal 14.0-18.0 [facility] Comment on above: Performed By: #### D ATCBC #### [facility] [address] [place] [address] Dr. Mayra Zuluaga IG # 0.02 10e3/ul Normal 0.00-0.03 [facility] Comment on above: Performed By: #### D ATCBC #### [facility] [address] [place] [address] Dr. Mayra Zuluaag IG % 0.3 % Normal 0.0-0.5 [facility] Comment on above: Performed By: #### D ATCBC #### [facility] [address] [place] [address] Dr. Mayra Zuluaga LYMPH # 2.0 103/ul Normal 1.2-3.8 [facility] Comment on above: Performed By: #### D ATCBC #### [facility] [address] [place] [address] Dr. Mayra Zuluaga Lymphocytes/100 WBC (Bld) 32.3 % Normal 20.5-60.0 [facility] Comment on above: Performed By: #### D ATCBC #### [facility] [address] [place] [address] Dr. Mayra Zuluaga MCH (RBC) [Entitic mass] 31.0 pg Normal 25.9-34.0 [facility] Comment on above: Performed By: #### D ATCBC #### [facility] [address] [address] [address] Mayra Zuluaga MCHC (RBC) [Mass/Vol] 33.2 g/dL Normal 29.9-35.2 [facility] Comment on above: Performed By: #### D ATCBC #### [facility] [address] [address] [address] Mayra Zuluaga MCV (RBC) [Entitic vol] 93.4 fL Normal 80.0-94.0 [facility] Comment on above: Performed By: #### D ATCBC #### [facility] [address] [address] [address] Mayra Zuluaga MONO # 0.9 103/ul Critically high 0.3-0.8 [facility] Comment on above: Performed By: #### D ATCBC #### [facility] [address] [place] [address] Dr. Mayra Zuluaga Monocytes/100 WBC (Bld) 13.9 % Critically high 1.7-12.0 [facility] Comment on above: Performed By: #### D ATCBC #### [facility] [address] [place] [address] Dr. Mayra Zuluaga NEUT # 3.2 103/ul Normal 1.4-6.5 [facility] Comment on above: Performed By: #### D ATCBC #### [facility] [address] [place] [address] Dr. Mayra Zuluaga Neutrophils/100 WBC (Bld) 50.8 % Normal 43.0-75.0 [facility] Comment on above: Performed By: #### D ATCBC #### [facility] [address] [place] [address] Dr. Mayra Zuluaga Platelet mean volume (Bld) [Entitic vol] 9.5 fL Normal 9.5-13.5 [facility] Comment on above: Performed By: #### D ATCBC #### [facility] [address] [address] [address] Mayra Zuluaga PLT 215 103/ul Normal 150-450 [facility] Comment on above: Performed By: #### D ATCBC #### [facility] [address] [address] [address] Mayra Zuluaga RBC 4.84 106/ul Normal 4.70-6.10 [facility] Comment on above: Performed By: #### D ATCBC #### [facility] [address] [address] [address] Mayra Zuluaga WBC 6.3 103/ul Normal 4.0-11.0 [facility] Comment on above: Performed By: #### D ATCBC #### [facility] [address] [place] [address] Dr. Mayra Zuluaga AMINATA- BMP WITH LIPIDon 2022 Anion gap [Moles/Vol] 12.5 mmol/L Normal [facility] Comment on above: Performed By: #### D ATBMP, DATPSA #### [facility] [address] [place] [address] Dr. Mayra Zuluaga Calcium [Mass/Vol] 8.6 mg/dL Normal 8.5-10.1 [facility] Comment on above: Performed By: #### D ATBMP, DATPSA #### [facility] [address] [place] [address] Dr. Mayra Zuluaga Chloride [Moles/Vol] 103 mmol/L Normal 98-107 [facility] Comment on above: Performed By: #### D ATBMP, DATPSA #### [facility] [address] [place] [address] Dr. Mayra Zuluaga Cholesterol [Mass/Vol] 178 mg/dL Normal <=200 [facility] Comment on above: Performed By: #### D ATBMP, DATPSA #### [facility] [address] [place] [address] Dr. Mayra Zuluaga Cholesterol in HDL [Mass/Vol] 62 mg/dL Critically high 40-60 [facility] Comment on above: Performed By: #### D ATBMP, DATPSA #### [facility] [address] [address] [address] Mayra Zuluaga Cholesterol in LDL [Mass/Vol] 108.8 mg/dL Normal [facility] Comment on above: Performed By: #### D ATBMP, DATPSA #### [facility] [address] [place] [address] Dr. Mayra Zuluaga CO2 [Moles/Vol] 28.9 mmol/L Normal 21.0-32.0 [facility] Comment on above: Performed By: #### D ATBMP, DATPSA #### [facility] [address] [place] [address] Dr. Mayra Zuluaga Creatinine [Mass/Vol] 0.84 mg/dL Normal 0.70-1.30 [facility] Comment on above: Performed By: #### D ATBMP, DATPSA #### [facility] [address] [place] [address] Dr. Mayra Zuluaga EGFR-AF TURKMEN >60 Normal >=60 [facility] Comment on above: Performed By: #### D ATBMP, DATPSA #### [facility] [address] [place] [address] Dr. Mayra Zuluaga EGFR-NON AF TURKMEN >60 Normal >=60 [facility] Comment on above: Performed By: #### D ATBMP, DATPSA #### [facility] [address] [place] [address] Dr. Mayra Zuluaga Glucose [Mass/Vol] 114 mg/dL Critically high 74-106 [facility] Comment on above: Performed By: #### D ATBMP, DATPSA #### [facility] [address] [place] [address] Dr. Mayra Zuluaga HDL NORMAL > or = 60 mg/dl - LO W CARDIOVASCULAR RISK <40 mg/dl - HIGH CARDIOVASCULAR RISK Normal [facility] Comment on above: Performed By: #### D ATBMP, DATPSA #### [facility] [address] [place] [address] Dr. Mayra Zuluaga LDL CALC NORMAL SEE BELOW Normal [facility] Comment on above: Result Comment: <100 mg/dl OPTIMAL 100 - 129 mg/dl NEAR OR ABOVE OPTIMAL 130 - 159 mg/dl BORDERLINE HIGH 160 - 189 mg/dl HIGH >190 mg/dl VERY HIGH Performed By: #### D ATBMP, DATPSA #### [facility] [address] [address] [address] Mayra Zuluaga Potassium [Moles/Vol] 4.4 mmol/L Normal 3.5-5.1 [facility] Comment on above: Performed By: #### D ATBMP, DATPSA #### [facility] [address] [address] [address] Mayra Zuluaga Sodium [Moles/Vol] 140 mmol/L Normal 136-145 [facility] Comment on above: Performed By: #### D ATBMP, DATPSA #### [facility] [address] [address] [address] Mayra Zuluaga Triglyceride [Mass/Vol] 36 mg/dL Normal <=150 [facility] Comment on above: Performed By: #### D ATBMP, DATPSA #### [facility] [address] [address] [address] Mayra Zulauga Urea nitrogen [Mass/Vol] 12.0 mg/dL Normal 7.0-18.0 [facility] Comment on above: Performed By: #### D ATBMP, DATPSA #### [facility] [address] [address] [address] Mayra Zuluaga Urea nitrogen/Creatinine [Mass ratio] 14.3 mg/mg Normal [facility] Comment on above: Performed By: #### D ATBMP, DATPSA #### [facility] [address] [address] [address] Marya Zuluaga VLDL CALC 7.2 mg/dL Normal [facility] Comment on above: Performed By: #### D ATBMP, DATPSA #### [facility] [address] [address] [address] Mayra Zuluaga Covid-19 PCR ([facility])on 06-30 SARS-CoV-2 (COVID-19) RNA DOROTHY+probe Ql (Unsp spec) Not detected Normal NOT DETECTED [facility] Comment on above: Result Comment: This test is not yet approved or cleared by the [place] FDA. When there are no FDA-approved or cleared tests available, and other criteria are met, FDA can make tests available under an emergency access mechanism called an Emergency Use Authorization (EUA). The EUA for this test is supported by the [place] of Health and Human Service's (HHS's) declaration [...] consistent with SARS-CoV-2. Performed By: #### [facility] #### [facility] [address] [place] [address] [facility] Surgical Pathology Depar tmenton 01-30-2022 [facility] Surgical Pathology Department Name MIGUEL BARON Pathologist: DOMINGA AGRAWAL DMD Date of Procedure: 01/30/2022 Date Received: 02/03/2022 Date Reported 02/06/2022 Submitting Physician: REMIGIO MENDOZA DDS Location: [facility] Other External # FINAL DIAGNOSIS A. RIGHT SOFT PALATAL MUCOSA, INCISIONAL BIOPSY: -- MILD EPITHELIAL DYSPLASIA (MULTIPLE LEVELS EXAMINED) ICD-10/CPT: K13.21/68526 Electronically Signed Out By DOMINGA AGRAWAL DMD/JONNATHAN [...] in toto in 1 cassette. AMANDEEP jlm/02/03/2022 [facility] Department of Pathology [address] [place] [address] Normal [facility] Comment on above: Performed By: #### U [facility] #### [facility] Surgical Pathology Department [address] [place] [address] BASIC METABOLIC PANELon 12-31 Calcium [Mass/Vol] 9.6 mg/dL Normal 8.6-10.3 [facility] Comment on above: Performed By: #### 1 0054 #### [facility] [address] [place] [address], [facility] Chloride [Moles/Vol] 100 mmol/L Normal 98-107 [facility] Comment on above: Performed By: #### 1 0054 #### [facility] [address] [place] [address], [facility] CO2 [Moles/Vol] 25 mmol/L Normal 21-31 [facility] Comment on above: Performed By: #### 1 0054 #### [facility] [address] [place] [address], [facility] Creatinine [Mass/Vol] 0.62 mg/dL Low 0.70-1.30 [facility] Comment on above: Performed By: #### 1 0054 #### [facility] [address] [place] [address], [facility] GFR/1.73 sq M predicted among blacks MDRD (S/P/Bld) [Vol rate/Area] mL/min/{1.73_m2} Normal >60 [facility] Comment on above: Performed By: #### 1 0054 #### [facility] [address] [facility] [place] [address], [facility] GFR/1.73 sq M predicted among non-blacks MDRD (S/P/Bld) [Vol rate/Area] mL/min/{1.73_m2} Normal >60 [facility] Comment on above: Performed By: #### 1 0054 #### [facility] [address] [facility] [place] [address], [facility] Glucose [Mass/Vol] 97 mg/dL Normal 70-100 [facility] Comment on above: Performed By: #### 1 0054 #### [facility] [address] [facility] [place] [address], [facility] Potassium [Moles/Vol] 3.9 mmol/L Normal 3.5-5.1 [facility] Comment on above: Performed By: #### 1 0054 #### [facility] [address] [facility] [place] [address], [facility] Sodium [Moles/Vol] 131 mmol/L Low 136-145 [facility] Comment on above: Performed By: #### 1 0054 #### [facility] [address] [facility] [place] [id number], [facility] Urea nitrogen [Mass/Vol] 5 mg/dL Low 7-25 [facility] Comment on above: Performed By: #### 1 0054 #### [facility] [address] [place] [id number], [facility] CBC W/DIFFon 01-16-2020 ABS BASOPHILS 0.0 10*3/uL Normal 0.0-0.2 [facility] Comment on above: Performed By: #### 1 0054 #### [facility] [address] [facility] [place] [address], [facility] ABS IMM GRANS 0.0 10*3/uL Normal 0.0-0.2 [facility] Comment on above: Performed By: #### 1 0054 #### [facility] [address] [facility] [place] [address], [facility] ABS NEUTROPHILS 5.5 10*3/uL Normal 1.6-7.6 The [facility] Comment on above: Performed By: #### 1 0054 #### [facility] [address] [place] [address], [facility] Basophils/100 WBC (Bld) 0.4 % Normal 0.0-1.0 [facility] Comment on above: Performed By: #### 1 0054 #### [facility] [address] [facility] [place] [address], [facility] Eosinophils (Bld) [#/Vol] 0.1 10*3/uL Normal 0.0-0.5 [facility] Comment on above: Performed By: #### 1 0054 #### [facility] [address] [place] [address], [facility] Eosinophils/100 WBC (Bld) 1.0 % Normal 0.0-6.0 [facility] Comment on above: Performed By: #### 1 0054 #### [facility] [address] [facility] Erythrocyte distribution width (RBC) [Ratio] 15.0 % Normal 11.5-15.0 [facility] Comment on above: Performed By: #### 1 0054 #### [facility] [address] [facility] [place] [address], [facility] Hematocrit (Bld) [Volume fraction] 41.1 % Normal 39.0-50.0 [facility] Comment on above: Performed By: #### 1 0054 #### [facility] [address] [facility] [place] [address], [facility] Hemoglobin (Bld) [Mass/Vol] 13.2 g/dL Normal 13.0-17.0 [facility] Comment on above: Performed By: #### 1 0054 #### [facility] [address] [place] [address], [facility] IMMATURE GRANS 0.2 % Normal 0.0-1.0 [facility] Comment on above: Performed By: #### 1 0054 #### [facility] [address] Lymphocytes (Bld) [#/Vol] 3.1 10*3/uL Normal 1.2-4.0 The [facility] Comment on above: Performed By: #### 1 0054 #### [facility] [address] Lymphocytes/100 WBC (Bld) 31.1 % Normal 20.0-45.0 The [facility] Comment on above: Performed By: #### 1 0054 #### [facility] [address] MCH (RBC) [Entitic mass] 27.9 pg Normal 27.0-33.0 [facility] Comment on above: Performed By: #### 1 0054 #### [facility] [address] MCHC (RBC) [Mass/Vol] 32.1 g/dL Normal 32.0-35.0 [facility] Comment on above: Performed By: #### 1 0054 #### [facility] [address] [place] [address], [facility] MCV (RBC) [Entitic vol] 86.9 fL Normal 82.0-98.0 [facility] Comment on above: Performed By: #### 1 0054 #### [facility] [address] [place] [address], [facility] Monocytes (Bld) [#/Vol] 1.2 10*3/uL High 0.1-1.0 [facility] Comment on above: Performed By: #### 1 0054 #### [facility] [address] [place] [address], [facility] MONOS 11.7 % Normal 5.0-12.0 [facility] Comment on above: Performed By: #### 1 0054 #### [facility] [address] [facility] [place] [address], [facility] Neutrophils/100 WBC (Bld) 55.6 % Normal 40.0-72.0 [facility] Comment on above: Performed By: #### 1 4 #### [facility] [address] [facility] [place] [address], [facility] Nucleated RBC/100 WBC (Bld) [Ratio] 0 % Normal 0-0 [facility] Comment on above: Performed By: #### 1 0054 #### [facility] [address] [facility] [place] [address], [facility] PLAT CNT 296 10*3/uL Normal 150-400 [facility] Comment on above: Performed By: #### 1 0054 #### [facility] [address] [facility] [place] [address], [facility] RBC (Bld) [#/Vol] 4.73 10*6/uL Normal 4.20-5.70 The [facility] Comment on above: Performed By: #### 1 0054 #### [facility] [address] [facility] [place] [place] [address], [facility] WBC (Bld) [#/Vol] 9.81 10*3/uL Normal 4.00-10.60 [facility] Comment on above: Performed By: #### 1 0054 #### [address] ABDOMEN AND PELVIS W IV A ND ORAL CONTRASTon 01-16-2020 CT ABDOMEN AND PELVIS W IV AND ORAL CONTRAST [facility] Department of Radiology [address] [place] [id number] ======== Patient Name: MIGUEL BARON : 1960 Sex: M Age: Race: White Pt. Location: [facility] Patient Status: E Ordered Date: 01/16/2020 12:10:00 [...] achievable Electronically signed: Jennifer Cohen. Transcribed by: [email or web address], User Resident: Electronically Signed by: JENNIFER COHEN @ 01/16/2020 02:26 PM Normal [facility] Comment on above: Order Comment: No: D o not add to previous draw Coding Summaryon 12-08-2019 Coding Summary CODING DATE: 12/08/2019 [facility] STATUS: Home PAYOR: Commercial Insurance ADMIT DX: [...] Hurtado Revised Date Saved: 11/22/2019 11:54 am [facility] Provider Orderson 11-18-2019 Provider Orders [id number]#[id number] [facility] H&Hon 11-17-2019 Hematocrit (Bld) [Volume fraction] 28.7 % Low 34.8-51.9 [facility] Comment on above: Performed By: #### 5 [id number] #### [facility] (DEFAULT) [address] [place] [id number] Hemoglobin (Bld) [Mass/Vol] 9.2 g/dL Low 11.8-17.7 [facility] Comment on above: Performed By: #### 5 [id number] #### [facility] (DEFAULT) [address] [place] [id number] BASIC METABOLIC PANELon 12-0 Calcium [Mass/Vol] 7.3 mg/dL Low 8.6-10.3 [facility] Comment on above: Order Comment: No: D o not add to previous draw Performed By: #### 5 6101, 45638, 07161, 27196, 75554, 03689, 14568 #### [facility] [address] [place] [address], [facility] Chloride [Moles/Vol] 99 mmol/L Normal 98-107 [facility] Comment on above: Order Comment: No: D o not add to previous draw Performed By: #### 5 6101, 43190, 27015, 42790, 17731, 06420, 53694 #### [facility] [address] [facility] [place] [place] [address], [place] CO2 [Moles/Vol] 27 mmol/L Normal 21-31 The [facility] Comment on above: Order Comment: No: D o not add to previous draw Performed By: #### 5 6101, 72679, 90853, 41496, 23697, 49185, 34501 #### [facility] [address] [place] [address], [place] Creatinine [Mass/Vol] 0.38 mg/dL Low 0.70-1.30 [facility] Comment on above: Order Comment: No: D o not add to previous draw Performed By: #### 5 6101, 33056, 16711, 78974, 48328, 10567, 59483 #### [facility] [address] [place] [address], [place] GFR/1.73 sq M predicted among blacks MDRD (S/P/Bld) [Vol rate/Area] mL/min/{1.73_m2} Normal >60 [facility] Comment on above: Order Comment: No: D o not add to previous draw Performed By: #### 5 6101, 29383, 29069, 90143, 44416, 29303, 03837 #### [facility] [address] [place] [address], [place] GFR/1.73 sq M predicted among non-blacks MDRD (S/P/Bld) [Vol rate/Area] mL/min/{1.73_m2} Normal >60 The [facility] Comment on above: Order Comment: No: D o not add to previous draw Performed By: #### 5 6101, 00611, 88621, 58436, 54959, 82885, 49724 #### [facility] [address] [place] [address], [place] Glucose [Mass/Vol] 95 mg/dL Normal 70-100 [facility] Comment on above: Order Comment: No: D o not add to previous draw Performed By: #### 5 6101, 38959, 42334, 51897, 17813, 59116, 71107 #### [facility] [address] [place] [address], [place] Potassium [Moles/Vol] 3.7 mmol/L Normal 3.5-5.1 [facility] Comment on above: Order Comment: No: D o not add to previous draw Performed By: #### 5 6101, 24532, 66968, 22309, 98332, 70008, 70103 #### [facility] [address] [place] [address], [place] Sodium [Moles/Vol] 129 mmol/L Low 136-145 [facility] Comment on above: Order Comment: No: D o not add to previous draw Performed By: #### 5 6101, 75741, 38215, 23039, 04329, 04734, 91153 #### [facility] [address] [place] [address], [facility] Urea nitrogen [Mass/Vol] 5 mg/dL Low 7-25 [facility] Comment on above: Order Comment: No: D o not add to previous draw Performed By: #### 5 6101, 55898, 72228, 67676, 84919, 62302, 46136 #### [facility] [address] [place] [address], [facility] CBC COMPLETE BLOOD COUNTon 1 01-08-2019 Erythrocyte distribution width (RBC) [Ratio] 16.0 % High 11.5-15.0 [facility] Comment on above: Order Comment: No: D o not add to previous draw Performed By: #### 5 6101, 59109, 75218, 10171, 10781, 39039, 73346 #### [facility] [address] [place] [address], [facility] Hematocrit (Bld) [Volume fraction] 20.8 % Low 39.0-50.0 [facility] Comment on above: Order Comment: No: D o not add to previous draw Performed By: #### 5 6101, 26779, 33295, 63885, 89831, 05592, 22301 #### [facility] [address] [place] [address], [facility] Hemoglobin (Bld) [Mass/Vol] 6.9 g/dL Low 13.0-17.0 [facility] Comment on above: Order Comment: No: D o not add to previous draw Performed By: #### 5 6101, 46731, 86924, 51961, 86011, 12082, 76025 #### [facility] [address] [place] [address], [facility] MCH (RBC) [Entitic mass] 30.5 pg Normal 27.0-33.0 [facility] Comment on above: Order Comment: No: D o not add to previous draw Performed By: #### 5 6101, 87564, 39541, 28261, 26303, 12040, 40011 #### [facility] [address] [place] [id number], [facility] MCHC (RBC) [Mass/Vol] 33.2 g/dL Normal 32.0-35.0 [facility] Comment on above: Order Comment: No: D o not add to previous draw Performed By: #### 5 6101, 13083, 48655, 30131, 07323, 85039, 42569 #### [facility] [address] [place] [address], [facility] MCV (RBC) [Entitic vol] 92.0 fL Normal 82.0-98.0 [facility] Comment on above: Order Comment: No: D o not add to previous draw Performed By: #### 5 6101, 16658, 47934, 08500, 47864, 91069, 25599 #### [facility] [address] [facility] [place] [address], [facility] Nucleated RBC/100 WBC (Bld) [Ratio] 0 % Normal 0-0 [facility] Comment on above: Order Comment: No: D o not add to previous draw Performed By: #### 5 6101, 64103, 62337, 03124, 92454, 94018, 86136 #### [facility] [address] [place] [id number], [facility] PLAT CNT 447 10*3/uL High 150-400 [facility] Comment on above: Order Comment: No: D o not add to previous draw Performed By: #### 5 6101, 70430, 21820, 54234, 85050, 80107, 89586 #### [facility] [address] [place] [address], [place] RBC (Bld) [#/Vol] 2.26 10*6/uL Low 4.20-5.70 [facility] Comment on above: Order Comment: No: D o not add to previous draw Performed By: #### 5 6101, 68661, 43832, 64549, 87381, 27490, 46910 #### [facility] [address] WBC (Bld) [#/Vol] 13.25 10*3/uL High 4.00-10.60 [facility] Comment on above: Order Comment: No: D o not add to previous draw Performed By: #### 5 6101, 71496, 96102, 26339, 67569, 12494, 25512 #### [facility] [address] [facility]. [address] MAGNESIUM BLOODon 11-07-2019 Magnesium [Mass/Vol] 1.7 mg/dL Low 1.9-2.7 [facility] Comment on above: Order Comment: No: D o not add to previous draw Performed By: #### 1 0054 #### [facility] [address] [facility] [place] [place] [address], [facility] RBC'S 1 UNITon 11-07-2019 CROSSMATCH INTERP 1 COMP Normal [facility] Comment on above: Performed By: #### 1 0054 #### [facility] [address] [facility]. [address] PRODUCT CODE 1 E0336 Normal [facility] Comment on above: Performed By: #### 1 0054 #### [facility] [address] [facility]. [address] PRODUCT STATUS 1 PT Normal The [facility] Comment on above: Result Comment: Resu lt changed by IF on 11/07/2019 11:05. The previous value was XM. Result changed by IF on 11/08/2019 00:30. The previous value was IS. Performed By: #### 1 0054 #### [facility] [address] [place] [address], [facility] UNIT ABO 1 O Normal [facility] Comment on above: Performed By: #### 1 0054 #### [facility] [address] [place] [address], [facility] UNIT ID 1 [id number] Normal The [facility] Comment on above: Performed By: #### 1 0054 #### [facility] [address] [place] [address], [facility] UNIT RH 1 Positive Normal [facility] Comment on above: Performed By: #### 1 0054 #### [facility] [address] [place] [address], [place] TYPE AND SCREENon 11-07-2019 ABO INTERPRETATION O Normal [facility] Comment on above: Performed By: #### 1 0054 #### [facility] [address] [place] [address], [facility] RH INTERPRETATION Positive Normal [facility] Comment on above: Performed By: #### 1 0054 #### [facility] [address] [place] [address], [facility] CBC COMPLETE BLOOD COUNTon 1 01-07-2019 Erythrocyte distribution width (RBC) [Ratio] 15.9 % High 11.5-15.0 [facility] Comment on above: Order Comment: No: D o not add to previous draw Performed By: #### 5 6101, 50729, 22618, 59976, 71212, 02871, 65776 #### [facility] [address] [place] [address], [facility] Hematocrit (Bld) [Volume fraction] 21.3 % Low 39.0-50.0 [facility] Comment on above: Order Comment: No: D o not add to previous draw Performed By: #### 5 6101, 78025, 62711, 22161, 25762, 79697, 19042 #### [facility] [address] [place] [address], [facility] Hemoglobin (Bld) [Mass/Vol] 7.1 g/dL Low 13.0-17.0 [facility] Comment on above: Order Comment: No: D o not add to previous draw Performed By: #### 5 6101, 52487, 71811, 31636, 02595, 67313, 56099 #### [facility] [address] [place] [address], [facility] MCH (RBC) [Entitic mass] 30.7 pg Normal 27.0-33.0 [facility] Comment on above: Order Comment: No: D o not add to previous draw Performed By: #### 5 6101, 02284, 19184, 87650, 32348, 65429, 93475 #### [facility] [address] [place] [address], [facility] MCHC (RBC) [Mass/Vol] 33.3 g/dL Normal 32.0-35.0 [facility] Comment on above: Order Comment: No: D o not add to previous draw Performed By: #### 5 6101, 80867, 37682, 51394, 05813, 59526, 05736 #### [facility] [address] [place] [address], [facility] MCV (RBC) [Entitic vol] 92.2 fL Normal 82.0-98.0 [facility] Comment on above: Order Comment: No: D o not add to previous draw Performed By: #### 5 6101, 65800, 68902, 42246, 01899, 57695, 06766 #### [facility] [address] [place] [address], [facility] Nucleated RBC/100 WBC (Bld) [Ratio] 0 % Normal 0-0 [facility] Comment on above: Order Comment: No: D o not add to previous draw Performed By: #### 5 6101, 85594, 07831, 36413, 14500, 17894, 30268 #### [facility] [address] [place] [address], [facility] PLAT CNT 387 10*3/uL Normal 150-400 [facility] Comment on above: Order Comment: No: D o not add to previous draw Performed By: #### 5 6101, 20312, 65687, 20338, 86835, 74039, 62853 #### [facility] [address] [place] [address], [facility] RBC (Bld) [#/Vol] 2.31 10*6/uL Low 4.20-5.70 [facility] Comment on above: Order Comment: No: D o not add to previous draw Performed By: #### 5 6101, 89738, 65091, 58380, 11917, 60836, 38045 #### [facility] [address] [facility] [place] [address], [facility] WBC (Bld) [#/Vol] 17.49 10*3/uL High 4.00-10.60 [facility] Comment on above: Order Comment: No: D o not add to previous draw Performed By: #### 5 6101, 65335, 18209, 96369, 73423, 63984, 82316 #### [facility] [address] [facility] [place] [address], [facility] COMP METABOLIC PANELon 11-06 Albumin [Mass/Vol] 2.0 g/dL Low 3.5-5.7 [facility] Comment on above: Order Comment: No: D o not add to previous draw Performed By: #### 5 6101, 57828, 50555, 70279, 18521, 06989, 02160 #### [facility] [address] [place] [address], [facility] ALKALINE PHOSPH 147 IU/L High 34-104 The [facility] Comment on above: Order Comment: No: D o not add to previous draw Performed By: #### 5 6101, 63415, 62746, 28399, 22284, 87365, 07155 #### [facility] [address] [place] [address], [facility] ALT [Catalytic activity/Vol] 13 U/L Normal 7-52 [facility] Comment on above: Order Comment: No: D o not add to previous draw Performed By: #### 5 6101, 51057, 39824, 76364, 76130, 94963, 03649 #### [facility] [address] [place] [address], [facility] AST [Catalytic activity/Vol] 14 U/L Normal 13-39 [facility] Comment on above: Order Comment: No: D o not add to previous draw Performed By: #### 5 6101, 57188, 90130, 37284, 07204, 69532, 98504 #### [facility] [address] [place] [address], [place] Bilirubin [Mass/Vol] 1.3 mg/dL High 0.3-1.0 [facility] Comment on above: Order Comment: No: D o not add to previous draw Performed By: #### 5 6101, 35811, 77974, 71067, 62548, 38202, 40912 #### [facility] [address] [place] [address], [place] Calcium [Mass/Vol] 7.5 mg/dL Low 8.6-10.3 [facility] Comment on above: Order Comment: No: D o not add to previous draw Performed By: #### 5 6101, 98937, 16741, 96736, 08902, 61784, 71447 #### [facility] [address] [place] [address], [place] Chloride [Moles/Vol] 99 mmol/L Normal 98-107 [facility] Comment on above: Order Comment: No: D o not add to previous draw Performed By: #### 5 6101, 77006, 40908, 06456, 33607, 72425, 70008 #### [facility] [address] [place] [address], [facility] CO2 [Moles/Vol] 26 mmol/L Normal 21-31 The [facility] Comment on above: Order Comment: No: D o not add to previous draw Performed By: #### 5 6101, 63549, 05013, 42475, 08007, 68844, 21356 #### [facility] [address] [place] [address], [facility] Creatinine [Mass/Vol] 0.40 mg/dL Low 0.70-1.30 [facility] Comment on above: Order Comment: No: D o not add to previous draw Performed By: #### 5 6101, 67134, 96794, 46914, 22811, 00655, 47495 #### [facility] [address] [place] [address], [facility] GFR/1.73 sq M predicted among blacks MDRD (S/P/Bld) [Vol rate/Area] mL/min/{1.73_m2} Normal >60 The [facility] Comment on above: Order Comment: No: D o not add to previous draw Performed By: #### 5 6101, 53849, 41635, 44250, 79789, 32947, 42522 #### [facility] [address] [place] [address], [facility] GFR/1.73 sq M predicted among non-blacks MDRD (S/P/Bld) [Vol rate/Area] mL/min/{1.73_m2} Normal >60 The [facility] Comment on above: Order Comment: No: D o not add to previous draw Performed By: #### 5 6101, 45087, 85259, 81313, 86684, 84455, 19181 #### [facility] [address] [place] [address], [place] Glucose [Mass/Vol] 86 mg/dL Normal 70-100 [facility] Comment on above: Order Comment: No: D o not add to previous draw Performed By: #### 5 6101, 37939, 82541, 22857, 43320, 10463, 47888 #### [facility] [address] [place] [address], [place] Potassium [Moles/Vol] 4.0 mmol/L Normal 3.5-5.1 [facility] Comment on above: Order Comment: No: D o not add to previous draw Performed By: #### 5 6101, 90122, 93450, 94765, 74265, 63793, 80206 #### [facility] [address] [place] [address], [place] Protein [Mass/Vol] 4.8 g/dL Low 6.0-8.3 [facility] Comment on above: Order Comment: No: D o not add to previous draw Performed By: #### 5 6101, 25639, 76791, 09070, 12742, 33913, 01743 #### [facility] [address] [place] [address], [place] Sodium [Moles/Vol] 130 mmol/L Low 136-145 [facility] Comment on above: Order Comment: No: D o not add to previous draw Performed By: #### 5 6101, 17782, 82552, 39699, 58644, 79457, 36041 #### [facility] [address] [place] [address], [place] Urea nitrogen [Mass/Vol] 5 mg/dL Low 7-25 [facility] Comment on above: Order Comment: No: D o not add to previous draw Performed By: #### 5 6101, 02155, 10334, 06001, 05812, 12553, 09716 #### [facility] [address] MAGNESIUM BLOODon 11-06-2019 Magnesium [Mass/Vol] 1.8 mg/dL Low 1.9-2.7 [facility] Comment on above: Order Comment: No: D o not add to previous draw Performed By: #### 5 6101, 50296, 48483, 18082, 81905, 51370, 31086 #### [facility] [address] *C DIFF DNA AMPLIFICATIONon 11-05-2019 *C DIFF DNA AMPLIFICATION Clinical Report: (D) Specimen: [id number] Collected: 11/05/2019 15:19 Status: Final Last Updated: 11/05/2019 16:45 (1) No: Do not add to previous draw CDT DNA: (Final) Negative Normal [facility] Comment on above: Order Comment: No: D o not add to previous draw Performed By: #### 5 6101, 27807, 07374, 90449, 58124, 94801, 14657 #### [facility] [address] *WOUND CULTUREon 11-05-2019 *WOUND CULTURE Clinical [...] <=1 Susceptible CEFAZOLIN (CZ) <=1 Susceptible CEFTRIAXONE (DE ALCHOLIZER) <=0.5 Susceptible CIPROFLOXACIN (CIP) <=0.5 Susceptible ESBL (-/+) (ESBL) Negative GENTAMICIN (GM) <=1 Susceptible PIP/TAZO (TZP) <=2/4 Susceptible TOBRAMYCIN (TOB) 1 Susceptible TRIMETH/SULFA (SXT) <=0.5/9.5 Susceptible Normal The [facility] Comment on above: Order Comment: No: D o not add to previous draw Performed By: #### 5 6101, 56735, 68285, 31633, 69714, 45928, 95127 #### [facility] [address] [place] [address], [facility] BASIC METABOLIC PANELon 12-0 Calcium [Mass/Vol] 7.6 mg/dL Low 8.6-10.3 [facility] Comment on above: Order Comment: No: D o not add to previous draw Performed By: #### 5 6101, 86452, 48348, 15583, 10872, 11672, 88708 #### [facility] [address] [place] [address], [facility] Chloride [Moles/Vol] 97 mmol/L Low 98-107 [facility] Comment on above: Order Comment: No: D o not add to previous draw Performed By: #### 5 6101, 68476, 67803, 68573, 12272, 18328, 66192 #### [facility] [address] [place] [address], [facility] CO2 [Moles/Vol] 26 mmol/L Normal 21-31 [facility] Comment on above: Order Comment: No: D o not add to previous draw Performed By: #### 5 6101, 41451, 27640, 14731, 03978, 56432, 67871 #### [facility] [address] [place] [address], [place] Creatinine [Mass/Vol] 0.35 mg/dL Low 0.70-1.30 [facility] Comment on above: Order Comment: No: D o not add to previous draw Performed By: #### 5 6101, 14475, 08325, 82546, 84269, 77482, 22145 #### [facility] [address] [place] [address], [facility] GFR/1.73 sq M predicted among blacks MDRD (S/P/Bld) [Vol rate/Area] mL/min/{1.73_m2} Normal >60 [facility] Comment on above: Order Comment: No: D o not add to previous draw Performed By: #### 5 6101, 30621, 90966, 15473, 80347, 94652, 44987 #### [facility] [address] [place] [address], [facility] GFR/1.73 sq M predicted among non-blacks MDRD (S/P/Bld) [Vol rate/Area] mL/min/{1.73_m2} Normal >60 [facility] Comment on above: Order Comment: No: D o not add to previous draw Performed By: #### 5 6101, 94973, 09165, 00900, 72590, 77433, 99377 #### [facility] [address] [place] [address], [facility] Glucose [Mass/Vol] 98 mg/dL Normal 70-100 [facility] Comment on above: Order Comment: No: D o not add to previous draw Performed By: #### 5 6101, 60273, 61303, 22830, 33910, 01022, 48916 #### [facility] [address] [place] [address], [facility] Potassium [Moles/Vol] 3.8 mmol/L Normal 3.5-5.1 [facility] Comment on above: Order Comment: No: D o not add to previous draw Performed By: #### 5 6101, 71561, 50565, 84554, 31364, 54090, 66167 #### [facility] [address] [place] [address], [place] Sodium [Moles/Vol] 129 mmol/L Low 136-145 [facility] Comment on above: Order Comment: No: D o not add to previous draw Performed By: #### 5 6101, 29719, 60743, 45346, 36831, 67366, 12110 #### [facility] [address] Urea nitrogen [Mass/Vol] 5 mg/dL Low 7-25 [facility] Comment on above: Order Comment: No: D o not add to previous draw Performed By: #### 5 6101, 13974, 34189, 38698, 31375, 65265, 89177 #### [facility] [address] CBC COMPLETE BLOOD COUNTon 01-06-2019 Erythrocyte distribution width (RBC) [Ratio] 15.5 % High 11.5-15.0 [facility] Comment on above: Order Comment: No: D o not add to previous draw Performed By: #### 5 6101, 48337, 45448, 60003, 83228, 04617, 41185 #### [facility] [address] Hematocrit (Bld) [Volume fraction] 22.4 % Low 39.0-50.0 [facility] Comment on above: Order Comment: No: D o not add to previous draw Performed By: #### 5 6101, 31815, 56738, 22697, 07687, 49769, 65234 #### [facility] [address] Hemoglobin (Bld) [Mass/Vol] 7.5 g/dL Low 13.0-17.0 [facility] Comment on above: Order Comment: No: D o not add to previous draw Performed By: #### 5 6101, 94872, 38228, 80763, 77192, 94836, 94957 #### [facility] [address] [place] [address], [facility] MCH (RBC) [Entitic mass] 31.0 pg Normal 27.0-33.0 [facility] Comment on above: Order Comment: No: D o not add to previous draw Performed By: #### 5 6101, 20570, 30415, 63072, 25733, 45142, 90527 #### [facility] [address] MCHC (RBC) [Mass/Vol] 33.5 g/dL Normal 32.0-35.0 [facility] Comment on above: Order Comment: No: D o not add to previous draw Performed By: #### 5 6101, 44449, 07131, 24608, 85343, 21780, 72560 #### [facility] [address] MCV (RBC) [Entitic vol] 92.6 fL Normal 82.0-98.0 [facility] Comment on above: Order Comment: No: D o not add to previous draw Performed By: #### 5 6101, 87082, 34061, 07654, 84289, 05615, 08143 #### [facility] [address] Nucleated RBC/100 WBC (Bld) [Ratio] 0 % Normal 0-0 [facility] Comment on above: Order Comment: No: D o not add to previous draw Performed By: #### 5 6101, 22146, 60459, 29802, 25031, 91549, 80125 #### [facility] [address] [place] [address], [facility] PLAT CNT 350 10*3/uL Normal 150-400 [facility] Comment on above: Order Comment: No: D o not add to previous draw Performed By: #### 5 6101, 32205, 21766, 14948, 54659, 71121, 37140 #### [facility] [address] [place] [address], [facility] RBC (Bld) [#/Vol] 2.42 10*6/uL Low 4.20-5.70 [facility] Comment on above: Order Comment: No: D o not add to previous draw Performed By: #### 5 6101, 24644, 36865, 99274, 46997, 57224, 46254 #### [facility] [address] WBC (Bld) [#/Vol] 20.11 10*3/uL High 4.00-10.60 [facility] Comment on above: Order Comment: No: D o not add to previous draw Performed By: #### 5 6101, 27782, 26718, 10505, 76162, 68584, 38021 #### [facility] [address] [place], [place] [address] [place] [address] CHEST AND LATERALon 11-05-20 CHEST AND LATERAL [facility] Department of Radiology [address] [place] [address] ======== Patient Name: MIGUEL BARON : 1960 Sex: M Age: Race: White Pt. Location: [address] [place] [address] Patient Status: I Ordered Date: 11/04/2019 1:35:00 [...] evidence of an acute pulmonary process. Approved by:Jaicnto Jones on 11/05/2019 5:55 PM EST. I, Ramandeep Mai, have reviewed the images and report and concur with these findings. Electronically signed by:Ramandeep Mai. Transcribed by: [email or web address], User Resident: JACINTO JONES Electronically Signed by: RAMANDEEP MAI @ 11/07/2019 09:28 AM I personally read this/these film(s) with this resident Normal [facility] Comment on above: Order Comment: No: D o not add to previous draw CT ABDOMEN AND PELVIS W IV C ONTRASTon 11-05-2019 CT ABDOMEN AND PELVIS W IV CONTRAST [facility] Department of Radiology [address] [place] [id number] ======== Patient Name: MIGUEL BARON : 1960 Sex: M Age: Race: White Pt. Location: [id number] Patient Status: I Ordered Date: 11/05/2019 2:25:00 [...] 4. Anterior abdominal wall incision with midline nathony. Mild anasarca. 5. Rectosigmoid diverticulosis. Approved by:Jacinto Jones on 11/05/2019 3:42 PM EST. I, Ramandeep Mai, have reviewed the images and report and concur with these findings. Electronically signed by:Ramandeep Mai. Transcribed by: [email or web address], User Resident: JACINTO JONES Electronically Signed by: RAMANDEEP MAI @ 11/06/2019 08:15 AM I personally read this/these film(s) with this resident Normal [facility] Comment on above: Order Comment: Other , r/o intra-abdominal abscess/fluid collection MAGNESIUM BLOODon 11-05-2019 Magnesium [Mass/Vol] 1.9 mg/dL Normal 1.9-2.7 [facility] Comment on above: Order Comment: No: D o not add to previous drawPt using restroom. Performed By: #### 5 6101, 03402, 01406, 09150, 28402, 42397, 50980 #### [facility] [address] [place] [address], [facility] URINALYSIS REFLEXon 11-05-20 19 Appearance (U) SL CLOUDY Abnormal CLEAR [facility] Comment on above: Order Comment: No: D o not add to previous drawCriteria for reflexing a culture was not met. Please call the lab [id number] within 24 hours of collection time if culture is needed Performed By: #### 5 6101, 62821, 59882, 97938, 29149, 73266, 93594 #### [facility] [address] [place] [address], [facility] Bilirubin [Mass/Vol] Negative Normal NEGATIVE [facility] Comment on above: Order Comment: No: D o not add to previous drawCriteria for reflexing a culture was not met. Please call the lab [id number] within 24 hours of collection time if culture is needed Performed By: #### 5 6101, 39355, 48830, 80822, 60559, 41945, 59825 #### [facility] [address] [place] [address], [facility] BLOOD Negative Normal NEGATIVE [facility] Comment on above: Order Comment: No: D o not add to previous drawCriteria for reflexing a culture was not met. Please call the lab [id number] within 24 hours of collection time if culture is needed Performed By: #### 5 6101, 85186, 84975, 61598, 38181, 42814, 06627 #### [facility] [address] [place] [address], [facility] Color (U) BELLA Abnormal YELLOW [facility] Comment on above: Order Comment: No: D o not add to previous drawCriteria for reflexing a culture was not met. Please call the lab [id number] within 24 hours of collection time if culture is needed Performed By: #### 5 6101, 37122, 08744, 19575, 55754, 35877, 95401 #### [facility] [address] [facility] [place] [address], [facility] EPIS NONE SEEN Normal FEW,OCC,NONE SEEN [facility] Comment on above: Order Comment: No: D o not add to previous drawCriteria for reflexing a culture was not met. Please call the lab [id number] within 24 hours of collection time if culture is needed Performed By: #### 5 6101, 56563, 98124, 87297, 95640, 33763, 23330 #### [facility] [address] [place] [address], [place] Glucose [Mass/Vol] Negative Normal NEGATIVE [facility] Comment on above: Order Comment: No: D o not add to previous drawCriteria for reflexing a culture was not met. Please call the lab [id number] within 24 hours of collection time if culture is needed Performed By: #### 5 6101, 58323, 65912, 58985, 82614, 26646, 21175 #### [facility] [address] [place] [address], [facility] KETONE Negative Normal NEGATIVE [facility] Comment on above: Order Comment: No: D o not add to previous drawCriteria for reflexing a culture was not met. Please call the lab [id number] within 24 hours of collection time if culture is needed Performed By: #### 5 6101, 02799, 93270, 82085, 53713, 35026, 16357 #### [facility] [address] [facility] [place] [address], [facility] LEUK ODALIS Negative Normal NEGATIVE [facility] Comment on above: Order Comment: No: D o not add to previous drawCriteria for reflexing a culture was not met. Please call the lab [id number] within 24 hours of collection time if culture is needed Performed By: #### 5 6101, 90493, 23734, 21503, 13066, 83342, 81351 #### [facility] [address] [facility] [place] [place] [address], [facility] MUCUS THREADS MANY Abnormal NONE SEEN The [facility] Comment on above: Order Comment: No: D o not add to previous drawCriteria for reflexing a culture was not met. Please call the lab [id number] within 24 hours of collection time if culture is needed Performed By: #### 5 6101, 17858, 47274, 49630, 42518, 44117, 95860 #### [facility] [address] [place] [address], [facility] Nitrite Ql (U) Negative Normal NEGATIVE [facility] Comment on above: Order Comment: No: D o not add to previous drawCriteria for reflexing a culture was not met. Please call the lab [id number] within 24 hours of collection time if culture is needed Performed By: #### 5 6101, 17908, 48508, 86414, 48996, 92704, 89958 #### [facility] [address] [facility] [place] [place] [address], [facility] pH (Bld) 6.0 Normal 5.0-8.0 [facility] Comment on above: Order Comment: No: D o not add to previous drawCriteria for reflexing a culture was not met. Please call the lab [id number] within 24 hours of collection time if culture is needed Performed By: #### 5 6101, 80059, 79607, 44651, 79631, 30457, 27018 #### [facility] [address] [facility] [place] [place] [address], [facility] Protein (U) [Mass/Vol] Negative Normal NEGATIVE [facility] Comment on above: Order Comment: No: D o not add to previous drawCriteria for reflexing a culture was not met. Please call the lab [id number] within 24 hours of collection time if culture is needed Performed By: #### 5 6101, 31255, 45244, 11554, 97464, 50674, 92050 #### [facility] [address] [facility] [place] [place] [address], [facility] RBC (U) [#/Vol] NONE SEEN Normal NONE SEEN The [facility] Comment on above: Order Comment: No: D o not add to previous drawCriteria for reflexing a culture was not met. Please call the lab [id number] within 24 hours of collection time if culture is needed Performed By: #### 5 6101, 18157, 97058, 60766, 01376, 73556, 84936 #### [facility] [address] [facility] [place] [address], [facility] SPEC GRAV 1.016 Normal 1.015-1.020 [facility] Comment on above: Order Comment: No: D o not add to previous drawCriteria for reflexing a culture was not met. Please call the lab [id number] within 24 hours of collection time if culture is needed Performed By: #### 5 6101, 75002, 71951, 49233, 07650, 44023, 09151 #### [facility] [address] [facility]. [address] WBC UA 0-2 Abnormal NONE SEEN The [facility] Comment on above: Order Comment: No: D o not add to previous drawCriteria for reflexing a culture was not met. Please call the lab [id number] within 24 hours of collection time if culture is needed Performed By: #### 5 6101, 91862, 33655, 96435, 53961, 98361, 78945 #### [facility] [address] [facility]. [address] *BLOOD CULTUREon 11-04-2019 Bacteria identified Cx Nom (Bld) Clinical Report: (D) Specimen: BLOOD CULTURE Collected: 11/04/2019 13:45 Status: Final Last Updated: 11/10/2019 07:39 CULT RES (Final) No Growth Day 5 Normal [facility] Comment on above: Performed By: #### 5 6101, 19675, 27841, 39452, 52938, 06527, 43692 #### [facility] [address] [facility]. [address] CBC W/DIFFon 11-04-2019 ABS BASOPHILS 0.0 10*3/uL Normal 0.0-0.2 [facility] Comment on above: Performed By: #### 5 6101, 60818, 33502, 57201, 30038, 34875, 67123 #### [facility] [address] [facility] [place] [place] [address], [facility] ABS NEUTROPHILS 16.3 10*3/uL High 1.6-7.6 The [facility] Comment on above: Performed By: #### 5 6101, 28773, 67229, 10582, 69360, 97049, 64945 #### [facility] [address] [facility] [place] [place] [address], [facility] ANISO Moderate Normal [facility] Comment on above: Performed By: #### 5 6101, 84498, 17289, 19445, 34609, 27104, 06087 #### [facility] [address] [place] [address], [facility] Basophils/100 WBC (Bld) 0.0 % Normal 0.0-1.0 [facility] Comment on above: Performed By: #### 5 6101, 12587, 91376, 57794, 78272, 53210, 64551 #### [facility] [address] [place] [address], [facility] DOHLE BODIES Slight Normal [facility] Comment on above: Performed By: #### 5 6101, 04161, 36212, 17963, 00554, 78819, 98320 #### [facility] [address] [facility]. [address] Eosinophils (Bld) [#/Vol] 0.0 10*3/uL Normal 0.0-0.5 [facility] Comment on above: Performed By: #### 5 6101, 53679, 75639, 70424, 00978, 99072, 44731 #### [facility] [address] [facility] [place] [place] [address], [facility] Eosinophils/100 WBC (Bld) 0.0 % Normal 0.0-6.0 [facility] Comment on above: Performed By: #### 5 6101, 76856, 04807, 49070, 40105, 76323, 56492 #### [facility] [address] [facility]. [address] Erythrocyte distribution width (RBC) [Ratio] 15.6 % High 11.5-15.0 [facility] Comment on above: Performed By: #### 5 6101, 31784, 85035, 81470, 40033, 35664, 81596 #### [facility] [address] [facility] [place] [place] [address], [facility] GIANT PLATELETS Present Normal The [facility] Comment on above: Performed By: #### 5 6101, 80630, 04055, 12849, 73325, 20724, 64018 #### [facility] [address] [place] [address], [facility] Hematocrit (Bld) [Volume fraction] 21.1 % Low 39.0-50.0 [facility] Comment on above: Performed By: #### 5 6101, 84641, 49867, 74570, 00579, 31462, 48873 #### [facility] [address] [place] [address], [facility] Hemoglobin (Bld) [Mass/Vol] 7.1 g/dL Low 13.0-17.0 The [facility] Comment on above: Performed By: #### 5 6101, 35721, 41049, 91917, 65043, 74994, 00784 #### [facility] [address] [facility] [place] [address], [facility] Lymphocytes (Bld) [#/Vol] 0.5 10*3/uL Low 1.2-4.0 The [facility] Comment on above: Performed By: #### 5 6101, 77781, 75959, 22779, 74054, 52192, 64072 #### [facility] [address] [facility] [place] [address], [facility] Lymphocytes/100 WBC (Bld) 2.7 % Low 20.0-45.0 The [facility] Comment on above: Performed By: #### 5 6101, 09654, 49756, 93858, 97499, 57345, 02728 #### [facility] [address] [place] [address], [facility] MCH (RBC) [Entitic mass] 30.9 pg Normal 27.0-33.0 [facility] Comment on above: Performed By: #### 5 6101, 62375, 49880, 54371, 50891, 98781, 86003 #### [facility] [address] MCHC (RBC) [Mass/Vol] 33.6 g/dL Normal 32.0-35.0 [facility] Comment on above: Performed By: #### 5 6101, 85066, 99443, 49570, 32158, 02618, 00612 #### [facility] [address] [facility] [place] [address], [facility] MCV (RBC) [Entitic vol] 91.7 fL Normal 82.0-98.0 [facility] Comment on above: Performed By: #### 5 6101, 20530, 10792, 98217, 94762, 45660, 39251 #### [facility] [address] Monocytes (Bld) [#/Vol] 1.9 10*3/uL High 0.1-1.0 [facility] Comment on above: Performed By: #### 5 6101, 52903, 48269, 94788, 32532, 22205, 60440 #### [facility] [address] [facility]. [address] MONOS 10.1 % Normal 5.0-12.0 The [facility] Comment on above: Performed By: #### 5 6101, 44027, 34807, 88117, 72331, 92533, 59425 #### [facility] [address] [facility] [place] [place] [address], [facility] Neutrophils/100 WBC (Bld) 87.2 % High 40.0-72.0 [facility] Comment on above: Performed By: #### 5 6101, 19921, 44630, 52623, 59808, 34730, 94844 #### [facility] [address] [place] [address], [facility] Nucleated RBC/100 WBC (Bld) [Ratio] 0 % Normal 0-0 [facility] Comment on above: Performed By: #### 5 6101, 28618, 89672, 25865, 59519, 56963, 56375 #### [facility] [address] PLAT CNT 304 10*3/uL Normal 150-400 [facility] Comment on above: Performed By: #### 5 6101, 14073, 02267, 68024, 76459, 70717, 70828 #### [facility] [address] [facility] [address] POIK Moderate Normal The [facility] Comment on above: Performed By: #### 5 6101, 75672, 79797, 97825, 63338, 27445, 52366 #### [facility] [address] [facility]. [address] POLY Slight Normal The [facility] Comment on above: Performed By: #### 5 6101, 61775, 12428, 07037, 01092, 30768, 02322 #### [facility] [address] [facility]. [address] RBC (Bld) [#/Vol] 2.30 10*6/uL Low 4.20-5.70 [facility] Comment on above: Performed By: #### 5 6101, 36224, 74862, 42857, 59394, 23599, 15628 #### [facility] [address] [facility]. [address] TARGET CELLS Moderate Normal The [facility] Comment on above: Performed By: #### 5 6101, 52927, 79649, 15067, 25887, 63654, 17825 #### [facility] [address] [facility]. [address] TOXIC GRANULATION Moderate Normal The [facility] Comment on above: Performed By: #### 5 6101, 83344, 00633, 51425, 43974, 07519, 29675 #### [facility] [address] [place] [address], [facility] WBC (Bld) [#/Vol] 18.67 10*3/uL High 4.00-10.60 [facility] Comment on above: Performed By: #### 5 6101, 40933, 13096, 19260, 97654, 41607, 12483 #### [facility] [address] [place] [address], [facility] COMP METABOLIC PANELon 11-04 Albumin [Mass/Vol] 2.1 g/dL Low 3.5-5.7 [facility] Comment on above: Order Comment: No: D o not add to previous draw Performed By: #### 5 6101, 24001, 43943, 21427, 03823, 76816, 17620 #### [facility] [address] ALKALINE PHOSPH 153 IU/L High 34-104 The [facility] Comment on above: Order Comment: No: D o not add to previous draw Performed By: #### 5 6101, 73175, 02472, 34744, 62908, 47432, 15828 #### [facility] [address] [place] [address], [facility] ALT [Catalytic activity/Vol] 16 U/L Normal 7-52 The [facility] Comment on above: Order Comment: No: D o not add to previous draw Performed By: #### 5 6101, 95473, 92642, 54421, 17459, 92627, 56701 #### [facility] [address] [place] [address], [facility] AST [Catalytic activity/Vol] 14 U/L Normal 13-39 The [facility] Comment on above: Order Comment: No: D o not add to previous draw Performed By: #### 5 6101, 92408, 92781, 12967, 14707, 10028, 56498 #### [facility] [address] [place] [address], [place] Bilirubin [Mass/Vol] 1.6 mg/dL High 0.3-1.0 The [facility] Comment on above: Order Comment: No: D o not add to previous draw Performed By: #### 5 6101, 67847, 47047, 20746, 58245, 03897, 31198 #### [facility] [address] [place] [address], [place] Calcium [Mass/Vol] 7.5 mg/dL Low 8.6-10.3 [facility] Comment on above: Order Comment: No: D o not add to previous draw Performed By: #### 5 6101, 33990, 81001, 81938, 06049, 34541, 26590 #### [facility] [address] [place] [address], [place] Chloride [Moles/Vol] 97 mmol/L Low 98-107 [facility] Comment on above: Order Comment: No: D o not add to previous draw Performed By: #### 5 6101, 62210, 01424, 15531, 82980, 26994, 06851 #### [facility] [address] [place] [address], [place] CO2 [Moles/Vol] 26 mmol/L Normal 21-31 The [facility] Comment on above: Order Comment: No: D o not add to previous draw Performed By: #### 5 6101, 44253, 88692, 22290, 43536, 12484, 42959 #### [facility] [address] [place] [address], [place] Creatinine [Mass/Vol] 0.40 mg/dL Low 0.70-1.30 [facility] Comment on above: Order Comment: No: D o not add to previous draw Performed By: #### 5 6101, 47219, 58815, 22882, 31556, 04950, 31557 #### [facility] [address] [place] [address], [facility] GFR/1.73 sq M predicted among blacks MDRD (S/P/Bld) [Vol rate/Area] mL/min/{1.73_m2} Normal >60 The [facility] Comment on above: Order Comment: No: D o not add to previous draw Performed By: #### 5 6101, 80085, 18124, 50632, 73543, 96978, 90097 #### [facility] [address] [place] [address], [facility] GFR/1.73 sq M predicted among non-blacks MDRD (S/P/Bld) [Vol rate/Area] mL/min/{1.73_m2} Normal >60 The [facility] Comment on above: Order Comment: No: D o not add to previous draw Performed By: #### 5 6101, 86620, 44742, 64691, 42107, 12534, 61974 #### [facility] [address] [place] [address], [place] Glucose [Mass/Vol] 88 mg/dL Normal 70-100 [facility] Comment on above: Order Comment: No: D o not add to previous draw Performed By: #### 5 6101, 33285, 46857, 18279, 40253, 51822, 66414 #### [facility] [address] [place] [address], [place] Potassium [Moles/Vol] 4.0 mmol/L Normal 3.5-5.1 [facility] Comment on above: Order Comment: No: D o not add to previous draw Performed By: #### 5 6101, 24939, 53473, 42737, 35071, 16738, 90465 #### [facility] [address] [place] [address], [place] Protein [Mass/Vol] 4.8 g/dL Low 6.0-8.3 [facility] on above: Order Comment: No: D o not add to previous draw Performed By: #### 5 6101, 84426, 98772, 79132, 65632, 52938, 06322 #### [facility] [address] [place] [address], [facility] Sodium [Moles/Vol] 128 mmol/L Low 136-145 [facility] Comment on above: Order Comment: No: D o not add to previous draw Performed By: #### 5 6101, 91759, 86948, 71702, 19455, 60331, 33241 #### [facility] [address] [place] [address], [facility] Urea nitrogen [Mass/Vol] 5 mg/dL Low 7-25 [facility] [place] Comment on above: Order Comment: No: D o not add to previous draw Performed By: #### 5 6101, 54730, 39823, 77214, 00382, 85787, 74540 #### [facility] [address] [place] [address], [facility] MAGNESIUM BLOODon 11-04-2019 Magnesium [Mass/Vol] 1.7 mg/dL Low 1.9-2.7 [facility] [place] Comment on above: Order Comment: No: D o not add to previous draw Performed By: #### 5 6101, 62273, 62787, 04554, 90470, 70374, 99415 #### [facility] [address] [facility] [place] [address], [facility] PHOSPHORUS BLOODon 9 Phosphate [Mass/Vol] 2.7 mg/dL Normal 2.5-5.0 [facility] [place] Comment on above: Order Comment: No: D o not add to previous draw Performed By: #### 5 6101, 54385, 05603, 51188, 05906, 37541, 31598 #### [facility] [address] [place] [address], [facility] UFH HEPARIN ASSAYon 11-04-20 19 UNFRACTIONATED HEPARIN <0.10 Critically low 0.30-0.70 [facility] [place] Comment on above: Result Comment: [place] roxaban and Apixaban will interfere with the anti Xa assay used to monitor UFH and LMWH. RESULTS CHECKED AND CALLED. ACCURATELY READ BACK BY MATTHEW MORRISON RN AT 08:02 RN STATES PATIENT IS STILL ON HEPARIN DRIP. Performed By: #### 5 6101, 43038, 95920, 13709, 39639, 80908, 69282 #### [facility] [address] UNFRACTIONATED HEPARIN 0.26 IU/mL Low 0.30-0.70 [facility] [place] Comment on above: Result Comment: [place] roxaban and Apixaban will interfere with the anti Xa assay used to monitor UFH and LMWH. Performed By: #### 5 6101, 89158, 51412, 29362, 65906, 07411, 95699 #### [facility] [address] APTTon 11-03-2019 aPTT Coag (Bld) [Time] 161.0 s Critically high 25.0-35.0 [facility] [place] Comment on above: Order Comment: No: D [...] AT 10:25 Performed By: #### 5 6101, 63115, 93207, 93477, 14946, 95916, 93206 #### [facility] [address] [place] [address], [facility] BASIC METABOLIC PANELon Calcium [Mass/Vol] 7.5 mg/dL Low 8.6-10.3 [facility] Comment on above: Order Comment: No: D o not add to previous draw Performed By: #### 5 6101, 41252, 88989, 88675, 87942, 81394, 66903 #### [facility] [address] [place] [address], [facility] Chloride [Moles/Vol] 96 mmol/L Low 98-107 [facility] [place] Comment on above: Order Comment: No: D o not add to previous draw Performed By: #### 5 6101, 19481, 70133, 86128, 06811, 93348, 77229 #### [facility] [address] [place] [address], [facility] CO2 [Moles/Vol] 29 mmol/L Normal 21-31 The [facility] Comment on above: Order Comment: No: D o not add to previous draw Performed By: #### 5 6101, 08433, 28027, 69994, 90152, 20923, 97808 #### [facility] [address] [place] [address], [facility] Creatinine [Mass/Vol] 0.41 mg/dL Low 0.70-1.30 [facility] [place] Comment on above: Order Comment: No: D o not add to previous draw Performed By: #### 5 6101, 34407, 81849, 62397, 59040, 99006, 85490 #### [facility] [address] [place] [address], [place] GFR/1.73 sq M predicted among blacks MDRD (S/P/Bld) [Vol rate/Area] mL/min/{1.73_m2} Normal >60 [facility] [place] Comment on above: Order Comment: No: D o not add to previous draw Performed By: #### 5 6101, 33174, 15015, 61698, 70196, 90456, 27258 #### [facility] [address] [place] [address], [facility] GFR/1.73 sq M predicted among non-blacks MDRD (S/P/Bld) [Vol rate/Area] mL/min/{1.73_m2} Normal >60 [facility] [place] Comment on above: Order Comment: No: D o not add to previous draw Performed By: #### 5 6101, 64052, 01264, 24702, 47856, 38214, 79151 #### [facility] [address] [place] [address], [facility] Glucose [Mass/Vol] 86 mg/dL Normal 70-100 [facility] Comment on above: Order Comment: No: D o not add to previous draw Performed By: #### 5 6101, 71344, 78596, 14432, 10755, 32399, 31357 #### [facility] [address] [place] [address], [facility] Potassium [Moles/Vol] 3.4 mmol/L Low 3.5-5.1 [facility] [place] Comment on above: Order Comment: No: D o not add to previous draw Performed By: #### 5 6101, 34900, 61467, 77139, 94601, 76887, 82886 #### [facility] [address] [place] [address], [facility] Sodium [Moles/Vol] 129 mmol/L Low 136-145 [facility] Comment on above: Order Comment: No: D o not add to previous draw Performed By: #### 5 6101, 26384, 54069, 57963, 69704, 60995, 40280 #### [facility] [address] [place] [address], [facility] Urea nitrogen [Mass/Vol] 5 mg/dL Low 7-25 [facility] [place] Comment on above: Order Comment: No: D o not add to previous draw Performed By: #### 5 6101, 50873, 65643, 89906, 53186, 17274, 03194 #### [facility] [address] CALCIUM IONIZED CBGLon 11-03 IONIZED CALCIUM 1.07 mmol/L Low 1.12-1.30 [facility] Comment on above: Performed By: #### 5 6101, 77178, 87487, 74245, 55230, 56516, 90057 #### [facility] [address] CBC COMPLETE BLOOD COUNTon 1 01-04-2019 Erythrocyte distribution width (RBC) [Ratio] 14.5 % Normal 11.5-15.0 [facility] [place] Comment on above: Order Comment: No: D o not add to previous draw Performed By: #### 5 6101, 11923, 10457, 98822, 98263, 98964, 61674 #### [facility] [address] Hematocrit (Bld) [Volume fraction] 22.1 % Low 39.0-50.0 [facility] Comment on above: Order Comment: No: D o not add to previous draw Performed By: #### 5 6101, 12443, 80985, 84757, 60349, 66038, 81107 #### [facility] [address] Hemoglobin (Bld) [Mass/Vol] 7.5 g/dL Low 13.0-17.0 [facility] [place] Comment on above: Order Comment: No: D o not add to previous draw Performed By: #### 5 6101, 44405, 56292, 70108, 18291, 85937, 42502 #### [facility] [address] MCH (RBC) [Entitic mass] 30.9 pg Normal 27.0-33.0 [facility] [place] Comment on above: Order Comment: No: D o not add to previous draw Performed By: #### 5 6101, 21256, 33255, 19959, 06741, 74107, 29375 #### [facility] [address] MCHC (RBC) [Mass/Vol] 33.9 g/dL Normal 32.0-35.0 [facility] Comment on above: Order Comment: No: D o not add to previous draw Performed By: #### 5 6101, 69436, 57786, 23779, 10879, 85289, 19545 #### [facility] [address] MCV (RBC) [Entitic vol] 90.9 fL Normal 82.0-98.0 [facility] Comment on above: Order Comment: No: D o not add to previous draw Performed By: #### 5 6101, 77309, 80531, 33394, 81637, 97917, 00993 #### [facility] [address] [facility] [address] Nucleated RBC/100 WBC (Bld) [Ratio] 0 % Normal 0-0 [facility] [place] Comment on above: Order Comment: No: D o not add to previous draw Performed By: #### 5 6101, 09829, 88127, 44560, 96456, 05320, 50530 #### [facility] [address] [facility] [place] [address], [facility] PLAT CNT 204 10*3/uL Normal 150-400 [facility] Comment on above: Order Comment: No: D o not add to previous draw Performed By: #### 5 6101, 12956, 45961, 83747, 15985, 56451, 29352 #### [facility] [address] [facility] [address] RBC (Bld) [#/Vol] 2.43 10*6/uL Low 4.20-5.70 [facility] Comment on above: Order Comment: No: D o not add to previous draw Performed By: #### 5 6101, 55750, 56777, 06403, 03799, 75623, 66923 #### [facility] [address] [place] [address], [facility] WBC (Bld) [#/Vol] 19.35 10*3/uL High 4.00-10.60 [facility] [place] Comment on above: Order Comment: No: D o not add to previous draw Performed By: #### 5 6101, 37084, 11416, 71092, 64890, 61812, 10657 #### [facility] [address] [place] [address], [facility] MAGNESIUM BLOODon 11-03-2019 Magnesium [Mass/Vol] 1.6 mg/dL Low 1.9-2.7 [facility] [place] Comment on above: Order Comment: No: D o not add to previous draw Performed By: #### 5 6101, 55509, 10746, 26201, 21201, 28264, 45962 #### [facility] [address] [place] [address], [facility] PHOSPHORUS BLOODon 9 Phosphate [Mass/Vol] 2.6 mg/dL Normal 2.5-5.0 [facility] [place] Comment on above: Order Comment: No: D o not add to previous draw Performed By: #### 5 6101, 48328, 42984, 62593, 43136, 97740, 94694 #### [facility] [address] [place] [address], [facility] Phosphate [Mass/Vol] 2.5 mg/dL Normal 2.5-5.0 [facility] [place] Comment on above: Order Comment: No: D o not add to previous draw Performed By: #### 5 6101, 60388, 49885, 92985, 92459, 97727, 51383 #### [facility] [address] [place] [address], [facility] PROTHROMBIN TIMEon 9 INR Coag (PPP) [Relative time] 1.40 {INR} High 0.91-1.16 [facility] [place] Comment on above: Order Comment: No: D [...] CHEST 1995;[id number]. Performed By: #### 5 6101, 31768, 98808, 64514, 40068, 69107, 11357 #### [facility] [address] PT Coag (PPP) [Time] 17.3 s High 12.3-14.8 [facility] [place] Comment on above: Order Comment: No: D o not add to previous draw Result Comment: ALL RESULTS MUST BE INTERPRETED WITH RESPECT TO BLOOD DRAWING ARTIFACT OR DILUTION ERROR OF ANTICOAGULANT AT THE TIME OF SAMPLING. Performed By: #### 5 6101, 04557, 53921, 11223, 09336, 91065, 09132 #### [facility] [address] UFH HEPARIN ASSAYon 11-03-20 UNFRACTIONATED HEPARIN 0.21 IU/mL Low 0.30-0.70 [facility] [place] Comment on above: Order Comment: Pt ca re Result Comment: [place] roxaban and Apixaban will interfere with the anti Xa assay used to monitor UFH and LMWH. Performed By: #### 5 6101, 36191, 19152, 07186, 32068, 25189, 46469 #### [facility] [address] [place] [address], [facility] UNFRACTIONATED HEPARIN 0.23 IU/mL Low 0.30-0.70 [facility] Comment on above: Result Comment: [place] roxaban and Apixaban will interfere with the anti Xa assay used to monitor UFH and LMWH. Performed By: #### 5 6101, 58933, 63082, 20631, 22669, 71406, 98371 #### [facility] [address] [place] [address], [facility] UNFRACTIONATED HEPARIN 0.31 IU/mL Normal 0.30-0.70 [facility] Comment on above: Result Comment: [place] roxaban and Apixaban will interfere with the anti Xa assay used to monitor UFH and LMWH. Performed By: #### 5 6101, 07537, 31817, 02627, 12564, 12440, 19648 #### [facility] [address] [place] [address], [facility] UNFRACTIONATED HEPARIN 0.30 IU/mL Normal 0.30-0.70 [facility] Comment on above: Order Comment: Pt re fused labs. Result Comment: [place] roxaban and Apixaban will interfere with the anti Xa assay used to monitor UFH and LMWH. Performed By: #### 5 6101, 38870, 07996, 86906, 79974, 28754, 38679 #### [facility] [address] [place] [address], [facility] BASIC METABOLIC PANELon 12-0 Calcium [Mass/Vol] 7.2 mg/dL Low 8.6-10.3 [facility] Comment on above: Order Comment: No: D o not add to previous draw Performed By: #### 5 6101, 44623, 47374, 50243, 24783, 86718, 75262 #### [facility] [address] [place] [address], [facility] Chloride [Moles/Vol] 96 mmol/L Low 98-107 [facility] [place] Comment on above: Order Comment: No: D o not add to previous draw Performed By: #### 5 6101, 74588, 63851, 79773, 57964, 85068, 18022 #### [facility] [address] [place] [address], [facility] CO2 [Moles/Vol] 30 mmol/L Normal 21-31 The [facility] Comment on above: Order Comment: No: D o not add to previous draw Performed By: #### 5 6101, 87360, 82452, 93402, 70561, 33362, 94682 #### [facility] [address] [place] [address], [facility] Creatinine [Mass/Vol] 0.45 mg/dL Low 0.70-1.30 [facility] [place] Comment on above: Order Comment: No: D o not add to previous draw Performed By: #### 5 6101, 58265, 78580, 04979, 54164, 94029, 25409 #### [facility] [address] [place] [address], [facility] GFR/1.73 sq M predicted among blacks MDRD (S/P/Bld) [Vol rate/Area] mL/min/{1.73_m2} Normal >60 [facility] [place] Comment on above: Order Comment: No: D o not add to previous draw Performed By: #### 5 6101, 24546, 44225, 90052, 04215, 30933, 88774 #### [facility] [address] [place] [address], [facility] GFR/1.73 sq M predicted among non-blacks MDRD (S/P/Bld) [Vol rate/Area] mL/min/{1.73_m2} Normal >60 [facility] [place] Comment on above: Order Comment: No: D o not add to previous draw Performed By: #### 5 6101, 53988, 47359, 36411, 10142, 00994, 64546 #### [facility] [address] [place] [address], [place] Glucose [Mass/Vol] 94 mg/dL Normal 70-100 [facility] Comment on above: Order Comment: No: D o not add to previous draw Performed By: #### 5 6101, 46360, 56076, 15795, 80220, 75898, 88623 #### [facility] [address] [place] [address], [place] Potassium [Moles/Vol] 3.3 mmol/L Low 3.5-5.1 [facility] [place] Comment on above: Order Comment: No: D o not add to previous draw Performed By: #### 5 6101, 27427, 51865, 71867, 92593, 12459, 31853 #### [facility] [address] [place] [address], [place] Sodium [Moles/Vol] 128 mmol/L Low 136-145 [facility] Comment on above: Order Comment: No: D o not add to previous draw Performed By: #### 5 6101, 03462, 04643, 91262, 04145, 08743, 45437 #### [facility] [address] [place] [address], [place] Urea nitrogen [Mass/Vol] 5 mg/dL Low 7-25 [facility] [place] Comment on above: Order Comment: No: D o not add to previous draw Performed By: #### 5 6101, 23368, 27392, 17919, 31936, 22497, 94377 #### [facility] [address] [place] [address], [place] CALCIUMon 11-02-2019 Calcium [Mass/Vol] 7.2 mg/dL Low 8.6-10.3 [facility] Comment on above: Order Comment: No: D o not add to previous draw Performed By: #### 5 6101, 39165, 94802, 51785, 63545, 56034, 16990 #### [facility] [address] CBC COMPLETE BLOOD COUNTon 1 01-03-2019 Erythrocyte distribution width (RBC) [Ratio] 13.9 % Normal 11.5-15.0 [facility] Comment on above: Order Comment: No: D o not add to previous draw Performed By: #### 5 6101, 29291, 30230, 99015, 41067, 24504, 77917 #### [facility] [address] [place] [id number], [facility] Hematocrit (Bld) [Volume fraction] 21.4 % Low 39.0-50.0 [facility] [place] Comment on above: Order Comment: No: D o not add to previous draw Performed By: #### 5 6101, 16831, 88645, 16703, 73853, 48307, 89922 #### [facility] [address] [place] [id number], [facility] Hemoglobin (Bld) [Mass/Vol] 7.6 g/dL Low 13.0-17.0 [facility] [place] Comment on above: Order Comment: No: D o not add to previous draw Performed By: #### 5 6101, 54251, 63204, 67890, 50386, 51197, 56010 #### [facility] [address] [place] [address], [facility] MCH (RBC) [Entitic mass] 31.1 pg Normal 27.0-33.0 [facility] [place] Comment on above: Order Comment: No: D o not add to previous draw Performed By: #### 5 6101, 18686, 21421, 38593, 63058, 00600, 11554 #### [facility] [address] MCHC (RBC) [Mass/Vol] 35.5 g/dL High 32.0-35.0 [facility] Comment on above: Order Comment: No: D o not add to previous draw Performed By: #### 5 6101, 17230, 67670, 91253, 83248, 04940, 27467 #### [facility] [address] [place] [id number], [facility] MCV (RBC) [Entitic vol] 87.7 fL Normal 82.0-98.0 [facility] [place] Comment on above: Order Comment: No: D o not add to previous draw Performed By: #### 5 6101, 47400, 44487, 91488, 85768, 97479, 53710 #### [facility] [address] [facility] [place] [address], [facility] Nucleated RBC/100 WBC (Bld) [Ratio] 0 % Normal 0-0 [facility] [place] Comment on above: Order Comment: No: D o not add to previous draw Performed By: #### 5 6101, 09385, 01065, 66879, 98177, 59491, 86581 #### [facility] [address] [facility] [place] [address], [facility] PLAT CNT 144 10*3/uL Low 150-400 [facility] Comment on above: Order Comment: No: D o not add to previous draw Performed By: #### 5 6101, 01306, 51180, 23001, 28655, 05687, 39954 #### [facility] [address] [facility] [place] [id number], [facility] RBC (Bld) [#/Vol] 2.44 10*6/uL Low 4.20-5.70 [facility] Comment on above: Order Comment: No: D o not add to previous draw Performed By: #### 5 6101, 80423, 39594, 78116, 08410, 03307, 30001 #### [facility] [address] WBC (Bld) [#/Vol] 16.13 10*3/uL High 4.00-10.60 [facility] [place] Comment on above: Order Comment: No: D o not add to previous draw Performed By: #### 5 6101, 54340, 34083, 95423, 22488, 68704, 20039 #### [facility] [address] MAGNESIUM BLOODon 11-02-2019 Magnesium [Mass/Vol] 1.6 mg/dL Low 1.9-2.7 [facility] [place] Comment on above: Order Comment: No: D o not add to previous draw Performed By: #### 5 6101, 41683, 21356, 34753, 63301, 08806, 50778 #### [facility] [address] PHOSPHORUS BLOODon 9 Phosphate [Mass/Vol] 2.5 mg/dL Normal 2.5-5.0 [facility] [place] Comment on above: Order Comment: No: D o not add to previous draw Performed By: #### 5 6101, 71517, 60216, 12924, 03638, 82641, 57465 #### [facility] [address] UFH HEPARIN ASSAYon 11-02-20 19 UNFRACTIONATED HEPARIN 0.10 IU/mL Critically low 0.30-0.70 [facility] [place] Comment on above: Result Comment: [place] roxaban and Apixaban will interfere with the anti Xa assay used to monitor UFH and LMWH. RESULTS CHECKED AND CALLED. ACCURATELY READ BACK BY SUELLEN KAUR RN @ 2020 Performed By: #### 5 6101, 47128, 87427, 60202, 15990, 43255, 63063 #### [facility] [address] UNFRACTIONATED HEPARIN <0.10 Critically low 0.30-0.70 [facility] Comment on above: Result Comment: [place] roxaban and Apixaban will interfere with the anti Xa assay used to monitor UFH and LMWH. RESULTS CHECKED AND CALLED. ACCURATELY READ BACK BY JACOBY GREGORIO RN AT 0618 Performed By: #### 5 6101, 11584, 12248, 77065, 05604, 18941, 74396 #### [facility] [address] [facility]. [address] BASIC METABOLIC PANELon 12-0 Calcium [Mass/Vol] 6.8 mg/dL Low 8.6-10.3 [facility] Comment on above: Order Comment: No: D o not add to previous draw Performed By: #### 5 6101, 94219, 94889, 91439, 36331, 63635, 96582 #### [facility] [address] [facility] [place] [place] [address], [facility] Chloride [Moles/Vol] 95 mmol/L Low 98-107 [facility] Comment on above: Order Comment: No: D o not add to previous draw Performed By: #### 5 6101, 91682, 02343, 90922, 75067, 68745, 63568 #### [facility] [address] [facility] [place] [place] [address], [facility] CO2 [Moles/Vol] 29 mmol/L Normal 21-31 The [facility] Comment on above: Order Comment: No: D o not add to previous draw Performed By: #### 5 6101, 93068, 23109, 30513, 97105, 76406, 49693 #### [facility] [address] [facility] [place] [place] [address], [facility] Creatinine [Mass/Vol] 0.43 mg/dL Low 0.70-1.30 [facility] Comment on above: Order Comment: No: D o not add to previous draw Performed By: #### 5 6101, 76161, 29933, 01476, 40681, 66085, 26066 #### [facility] [address] [place] [address], [place] GFR/1.73 sq M predicted among blacks MDRD (S/P/Bld) [Vol rate/Area] mL/min/{1.73_m2} Normal >60 [facility] Comment on above: Order Comment: No: D o not add to previous draw Performed By: #### 5 6101, 82893, 91708, 49684, 29841, 37482, 31254 #### [facility] [address] [place] [address], [facility] GFR/1.73 sq M predicted among non-blacks MDRD (S/P/Bld) [Vol rate/Area] mL/min/{1.73_m2} Normal >60 [facility] Comment on above: Order Comment: No: D o not add to previous draw Performed By: #### 5 6101, 60481, 86415, 70610, 48494, 02165, 49769 #### [facility] [address] [place] [address], [place] Glucose [Mass/Vol] 113 mg/dL High 70-100 [facility] Comment on above: Order Comment: No: D o not add to previous draw Performed By: #### 5 6101, 01142, 62221, 86594, 90769, 25377, 96882 #### [facility] [address] [place] [address], [place] Potassium [Moles/Vol] 3.0 mmol/L Low 3.5-5.1 [facility] Comment on above: Order Comment: No: D o not add to previous draw Performed By: #### 5 6101, 49992, 11684, 42568, 49649, 03524, 54553 #### [facility] [address] [place] [address], [place] Sodium [Moles/Vol] 131 mmol/L Low 136-145 [facility] Comment on above: Order Comment: No: D o not add to previous draw Performed By: #### 5 6101, 42213, 05637, 29435, 42071, 27497, 43441 #### [facility] [address] [place] [address], [place] Urea nitrogen [Mass/Vol] 7 mg/dL Normal 7-25 [facility] [place] Comment on above: Order Comment: No: D o not add to previous draw Performed By: #### 5 6101, 15414, 18830, 33838, 22932, 87634, 66074 #### [facility] [address] [place] [address], [place] CALCIUM IONIZED CBGLon 11-01 IONIZED CALCIUM 1.01 mmol/L Low 1.12-1.30 The [facility] Comment on above: Order Comment: Pt us ing restroom, come back Performed By: #### 5 6101, 97211, 95640, 67888, 69288, 98483, 10487 #### [facility] [address] [place] [address], [place] CBC COMPLETE BLOOD COUNTon 1 01-02-2019 Erythrocyte distribution width (RBC) [Ratio] 14.2 % Normal 11.5-15.0 [facility] [place] Comment on above: Order Comment: No: D o not add to previous draw Performed By: #### 5 6101, 32102, 18250, 91694, 87354, 04004, 26970 #### [facility] [address] [place] [address], [place] Hematocrit (Bld) [Volume fraction] 18.2 % Low 39.0-50.0 [facility] [place] Comment on above: Order Comment: No: D o not add to previous draw Performed By: #### 5 6101, 40223, 12193, 44457, 47859, 11971, 16056 #### [facility] [address] [place] [address], [place] Hemoglobin (Bld) [Mass/Vol] 6.5 g/dL Low 13.0-17.0 [facility] [place] Comment on above: Order Comment: No: D o not add to previous draw Performed By: #### 5 6101, 74022, 73568, 65636, 17609, 17481, 18663 #### [facility] [address] [place] [id number], [facility] IMM PLATELET FRAC 11.4 % High 0.8-6.3 The [facility] Comment on above: Order Comment: No: D o not add to previous draw Performed By: #### 5 6101, 11681, 59477, 06327, 66357, 77190, 82673 #### [facility] [address] [place] [address], [facility] MCH (RBC) [Entitic mass] 31.4 pg Normal 27.0-33.0 [facility] [place] Comment on above: Order Comment: No: D o not add to previous draw Performed By: #### 5 6101, 89585, 67578, 44521, 65409, 04114, 19243 #### [facility] [address] [place] [address], [facility] MCHC (RBC) [Mass/Vol] 35.7 g/dL High 32.0-35.0 [facility] [place] Comment on above: Order Comment: No: D o not add to previous draw Performed By: #### 5 6101, 49756, 33191, 54454, 31738, 92959, 96902 #### [facility] [address] [place] [address], [facility] MCV (RBC) [Entitic vol] 87.9 fL Normal 82.0-98.0 [facility] [place] Comment on above: Order Comment: No: D o not add to previous draw Performed By: #### 5 6101, 19744, 84948, 42263, 71839, 25009, 00148 #### [facility] [address] Nucleated RBC/100 WBC (Bld) [Ratio] 0 % Normal 0-0 [facility] [place] Comment on above: Order Comment: No: D o not add to previous draw Performed By: #### 5 6101, 97474, 73095, 69170, 45562, 75441, 88358 #### [facility] [address] [facility] [place] [place] [address], [facility] PLAT CNT 86 10*3/uL Low 150-400 [facility] [place] Comment on above: Order Comment: No: D o not add to previous draw Result Comment: P=82 23H Performed By: #### 5 6101, 26769, 78883, 93899, 74009, 23362, 34470 #### [facility] [address] RBC (Bld) [#/Vol] 2.07 10*6/uL Low 4.20-5.70 [facility] Comment on above: Order Comment: No: D o not add to previous draw Performed By: #### 5 6101, 29735, 03386, 63267, 41246, 58348, 58146 #### [facility] [address] [place] [address], [facility] WBC (Bld) [#/Vol] 16.52 10*3/uL High 4.00-10.60 [facility] [place] Comment on above: Order Comment: No: D o not add to previous draw Performed By: #### 5 6101, 91178, 74779, 53992, 31801, 41039, 45149 #### [facility] [address] [facility] [place] [address], [facility] HEMOGLOBINon 11-01-2019 Hemoglobin (Bld) [Mass/Vol] 8.1 g/dL Low 13.0-17.0 [facility] Comment on above: Order Comment: No: D o not add to previous draw Performed By: #### 5 6101, 10710, 50547, 83037, 08684, 00287, 41046 #### [facility] [address] Hemoglobin (Bld) [Mass/Vol] 6.3 g/dL Low 13.0-17.0 [facility] [place] Comment on above: Order Comment: No: D o not add to previous draw Performed By: #### 5 6101, 86202, 90623, 87204, 72097, 28348, 28979 #### [facility] [address] [facility] [address] PLATELET COUNTon 11-01-2019 Platelets (Bld) [#/Vol] 102 10*3/uL Low 150-400 [facility] Comment on above: Order Comment: No: D o not add to previous draw Performed By: #### 5 6101, 17140, 11826, 27732, 19224, 83032, 30041 #### [facility] [address] [facility]. [address] RBC'S 2 UNITSon 11-01-2019 CROSSMATCH INTERP 1 COMP Normal [facility] Comment on above: Order Comment: Hemog lobin < 7gm/dl Performed By: #### 5 6101, 79564, 49363, 57122, 12958, 51213, 33897 #### [facility] [address] [facility]. [address] CROSSMATCH INTERP 2 COMP Normal [facility] Comment on above: Order Comment: Hemog lobin < 7gm/dl Performed By: #### 5 6101, 54339, 94675, 94850, 14072, 12783, 02493 #### [facility] [address] [facility]. [address] PRODUCT CODE 1 E0336 Normal [facility] Comment on above: Order Comment: Hemog lobin < 7gm/dl Performed By: #### 5 6101, 80423, 93415, 41716, 11725, 62323, 54369 #### [facility] [address] PRODUCT CODE 2 E0685 Normal [facility] Comment on above: Order Comment: Hemog lobin < 7gm/dl Performed By: #### 5 6101, 34653, 49557, 28050, 53231, 40501, 79890 #### [facility] [address] [place] [id number], [facility] PRODUCT STATUS 1 PT Normal [facility] Comment on above: Order Comment: Hemog lobin < 7gm/dl Result Comment: Resu lt changed by IF on 11/01/2019 11:43. The previous value was XM. Result changed by IF on 11/02/2019 00:30. The previous value was IS. Performed By: #### 5 6101, 45470, 29333, 48579, 36086, 63497, 11965 #### [facility] [address] PRODUCT STATUS 2 PT Normal [facility] Comment on above: Order Comment: Hemog lobin < 7gm/dl Result Comment: Resu lt changed by IF on 11/01/2019 09:35. The previous value was XM. Result changed by IF on 11/02/2019 00:30. The previous value was IS. Performed By: #### 5 6101, 46665, 10310, 47128, 86773, 64333, 73936 #### [facility] [address] [place] [address], [facility] UNIT ABO 1 O Normal [facility] Comment on above: Order Comment: Hemog lobin < 7gm/dl Performed By: #### 5 6101, 19332, 17008, 34929, 29165, 43817, 80041 #### [facility] [address] [place] [address], [facility] UNIT ABO 2 O Normal [facility] [place] Comment on above: Order Comment: Hemog lobin < 7gm/dl Performed By: #### 5 6101, 55670, 34837, 87820, 32818, 67130, 37615 #### [facility] [address] UNIT ID 1 [id number] Normal The [facility] Comment on above: Order Comment: Hemog lobin < 7gm/dl Performed By: #### 5 6101, 32916, 00146, 59729, 98578, 35214, 68490 #### [facility] [address] UNIT ID 2 [id number] Normal The [facility] Comment on above: Order Comment: Hemog lobin < 7gm/dl Performed By: #### 5 6101, 48304, 22438, 97676, 60048, 85322, 81310 #### [facility] [address] UNIT RH 1 Positive Normal [facility] [place] Comment on above: Order Comment: Hemog lobin < 7gm/dl Performed By: #### 5 6101, 21356, 27802, 23783, 40964, 54307, 64941 #### [facility] [address] [place] [address], [facility] UNIT RH 2 Positive Normal [facility] [place] Comment on above: Order Comment: Hemog lobin < 7gm/dl Performed By: #### 5 6101, 59897, 34032, 88353, 83404, 15498, 14737 #### [facility] [address] [place] [address], [facility] TYPE AND SCREENon 11-01-2019 ABO INTERPRETATION O Normal [facility] Comment on above: Performed By: #### 5 6101, 07649, 11227, 64327, 09416, 66374, 18395 #### [facility] [address] [place] [address], [facility] RH INTERPRETATION Positive Normal [facility] Comment on above: Performed By: #### 5 6101, 06772, 46412, 36354, 68804, 84147, 02142 #### [facility] [address] UFH HEPARIN ASSAYon 11-01-20 19 UNFRACTIONATED HEPARIN 0.91 IU/mL Critically high 0.30-0.70 [facility] [place] Comment on above: Result Comment: [place] roxaban and Apixaban will interfere with the anti Xa assay used to monitor UFH and LMWH. RESULTS CHECKED AND CALLED. ACCURATELY READ BACK BY STACY ZENG RN AT 0622 Performed By: #### 5 6101, 12585, 08028, 90072, 51901, 04593, 59807 #### [facility] [address] BASIC METABOLIC PANELon 12-0 Calcium [Mass/Vol] 7.4 mg/dL Low 8.6-10.3 [facility] Comment on above: Order Comment: No: D o not add to previous draw Performed By: #### 5 6101, 63130, 46293, 44688, 70348, 72704, 73965 #### [facility] [address] [place] [address], [facility] Chloride [Moles/Vol] 98 mmol/L Normal 98-107 [facility] [place] Comment on above: Order Comment: No: D o not add to previous draw Performed By: #### 5 6101, 07452, 94872, 98709, 84722, 93063, 73688 #### [facility] [address] [place] [address], [facility] CO2 [Moles/Vol] 31 mmol/L Normal 21-31 The [facility] Comment on above: Order Comment: No: D o not add to previous draw Performed By: #### 5 6101, 32651, 72626, 88330, 35417, 45410, 80577 #### [facility] [address] [place] [address], [place] Creatinine [Mass/Vol] 0.55 mg/dL Low 0.70-1.30 [facility] [place] Comment on above: Order Comment: No: D o not add to previous draw Performed By: #### 5 6101, 23495, 49122, 90706, 07973, 56545, 92937 #### [facility] [address] [place] [address], [place] GFR/1.73 sq M predicted among blacks MDRD (S/P/Bld) [Vol rate/Area] mL/min/{1.73_m2} Normal >60 [facility] [place] Comment on above: Order Comment: No: D o not add to previous draw Performed By: #### 5 6101, 09573, 77333, 88237, 40252, 10963, 76100 #### [facility] [address] [place] [address], [place] GFR/1.73 sq M predicted among non-blacks MDRD (S/P/Bld) [Vol rate/Area] mL/min/{1.73_m2} Normal >60 [facility] [place] Comment on above: Order Comment: No: D o not add to previous draw Performed By: #### 5 6101, 64667, 15112, 07688, 47215, 98044, 93868 #### [facility] [address] [place] [address], [place] Glucose [Mass/Vol] 94 mg/dL Normal 70-100 [facility] Comment on above: Order Comment: No: D o not add to previous draw Performed By: #### 5 6101, 77572, 89974, 54498, 57155, 14415, 89600 #### [facility] [address] [place] [address], [place] Potassium [Moles/Vol] 3.1 mmol/L Low 3.5-5.1 [facility] [place] Comment on above: Order Comment: No: D o not add to previous draw Performed By: #### 5 6101, 44905, 98451, 21188, 01824, 01799, 74420 #### [facility] [address] [place] [id number], [facility] Sodium [Moles/Vol] 133 mmol/L Low 136-145 [facility] Comment on above: Order Comment: No: D o not add to previous draw Performed By: #### 5 6101, 67146, 11020, 45965, 21559, 13521, 98718 #### [facility] [address] [place] [address], [facility] Urea nitrogen [Mass/Vol] 9 mg/dL Normal 7-25 [facility] [place] Comment on above: Order Comment: No: D o not add to previous draw Performed By: #### 5 6101, 80615, 76607, 35397, 11917, 75387, 52149 #### [facility] [address] CBC COMPLETE BLOOD COUNTon 01-01-2019 Erythrocyte distribution width (RBC) [Ratio] 14.4 % Normal 11.5-15.0 [facility] Comment on above: Order Comment: No: D o not add to previous draw Performed By: #### 5 6101, 35248, 64346, 08953, 55566, 55779, 54848 #### [facility] [address] [place] [address], [facility] Hematocrit (Bld) [Volume fraction] 27.3 % Low 39.0-50.0 [facility] [place] Comment on above: Order Comment: No: D o not add to previous draw Performed By: #### 5 6101, 30745, 21208, 43710, 61881, 77529, 37622 #### [facility] [address] Hemoglobin (Bld) [Mass/Vol] 9.5 g/dL Low 13.0-17.0 [facility] Comment on above: Order Comment: No: D o not add to previous draw Performed By: #### 5 6101, 70160, 75786, 03853, 33017, 64029, 75537 #### [facility] [address] [place] [address], [facility] IMM PLATELET FRAC 10.7 % High 0.8-6.3 [facility] Comment on above: Order Comment: No: D o not add to previous draw Performed By: #### 5 6101, 54305, 71002, 17616, 89785, 63507, 78384 #### [facility] [address] [place] [address], [facility] MCH (RBC) [Entitic mass] 30.9 pg Normal 27.0-33.0 [facility] [place] Comment on above: Order Comment: No: D o not add to previous draw Performed By: #### 5 6101, 96132, 34426, 81528, 86174, 82185, 83550 #### [facility] [address] [place] [address], [facility] MCHC (RBC) [Mass/Vol] 34.8 g/dL Normal 32.0-35.0 [facility] [place] Comment on above: Order Comment: No: D o not add to previous draw Performed By: #### 5 6101, 52986, 22614, 72581, 12769, 41415, 79557 #### [facility] [address] [place] [id number], [facility] MCV (RBC) [Entitic vol] 88.9 fL Normal 82.0-98.0 [facility] [place] Comment on above: Order Comment: No: D o not add to previous draw Performed By: #### 5 6101, 49180, 70809, 44463, 39882, 96293, 04658 #### [facility] [address] Nucleated RBC/100 WBC (Bld) [Ratio] 0 % Normal 0-0 [facility] [place] Comment on above: Order Comment: No: D o not add to previous draw Performed By: #### 5 6101, 10133, 74259, 13879, 50634, 87310, 07308 #### [facility] [address] [facility] [place] [place] [address], [facility] PLAT CNT 82 10*3/uL Low 150-400 [facility] [place] Comment on above: Order Comment: No: D o not add to previous draw Result Comment: P = 77 Performed By: #### 5 6101, 54239, 63415, 76136, 18694, 32614, 12444 #### [facility] [address] [place] [address], [facility] RBC (Bld) [#/Vol] 3.07 10*6/uL Low 4.20-5.70 [facility] Comment on above: Order Comment: No: D o not add to previous draw Performed By: #### 5 6101, 89571, 76217, 19387, 68788, 31421, 94456 #### [facility] [address] [place] [address], [facility] WBC (Bld) [#/Vol] 13.09 10*3/uL High 4.00-10.60 [facility] [place] Comment on above: Order Comment: No: D o not add to previous draw Performed By: #### 5 6101, 76536, 69020, 63758, 45324, 73246, 14464 #### [facility] [address] [facility] [place] [place] [address], [facility] MAGNESIUM BLOODon 10-31-2019 Magnesium [Mass/Vol] 1.9 mg/dL Normal 1.9-2.7 [facility] Comment on above: Order Comment: No: D o not add to previous draw Performed By: #### 5 6101, 39277, 11353, 66262, 05883, 70731, 38613 #### [facility] [address] [place] [address], [facility] UFH HEPARIN ASSAYon 10-31-20 19 UNFRACTIONATED HEPARIN 0.52 IU/mL Normal 0.30-0.70 [facility] Comment on above: Result Comment: [place] roxaban and Apixaban will interfere with the anti Xa assay used to monitor UFH and LMWH. Performed By: #### 5 6101, 53912, 60181, 94135, 67296, 16725, 45104 #### [facility] [address] BASIC METABOLIC PANELon 12- Calcium [Mass/Vol] 7.4 mg/dL Low 8.6-10.3 [facility] Comment on above: Order Comment: No: D o not add to previous draw Performed By: #### 5 6101, 25876, 53398, 69164, 09844, 52178, 33601 #### [facility] [address] [place] [address], [facility] Chloride [Moles/Vol] 97 mmol/L Low 98-107 [facility] [place] Comment on above: Order Comment: No: D o not add to previous draw Performed By: #### 5 6101, 01367, 43195, 25728, 54019, 36808, 49910 #### [facility] [address] [place] [address], [facility] CO2 [Moles/Vol] 31 mmol/L Normal 21-31 [facility] Comment on above: Order Comment: No: D o not add to previous draw Performed By: #### 5 6101, 00134, 26605, 03796, 78747, 27146, 69255 #### [facility] [address] [place] [id number], [facility] Creatinine [Mass/Vol] 0.55 mg/dL Low 0.70-1.30 [facility] [place] Comment on above: Order Comment: No: D o not add to previous draw Performed By: #### 5 6101, 65735, 93634, 84778, 44424, 73278, 76206 #### [facility] [address] [place] [address], [facility] GFR/1.73 sq M predicted among blacks MDRD (S/P/Bld) [Vol rate/Area] mL/min/{1.73_m2} Normal >60 [facility] [place] Comment on above: Order Comment: No: D o not add to previous draw Performed By: #### 5 6101, 36947, 71314, 52865, 32921, 56772, 73130 #### [facility] [address] [place] [address], [facility] GFR/1.73 sq M predicted among non-blacks MDRD (S/P/Bld) [Vol rate/Area] mL/min/{1.73_m2} Normal >60 [facility] [place] Comment on above: Order Comment: No: D o not add to previous draw Performed By: #### 5 6101, 34507, 13112, 97003, 09993, 13096, 20885 #### [facility] [address] [place] [address], [facility] Glucose [Mass/Vol] 111 mg/dL High 70-100 [facility] Comment on above: Order Comment: No: D o not add to previous draw Performed By: #### 5 6101, 52890, 40880, 12665, 32741, 93791, 21043 #### [facility] [address] [place] [address], [place] Potassium [Moles/Vol] 3.4 mmol/L Low 3.5-5.1 [facility] [place] Comment on above: Order Comment: No: D o not add to previous draw Performed By: #### 5 6101, 95249, 93627, 78668, 65734, 80426, 60559 #### [facility] [address] [place] [address], [facility] Sodium [Moles/Vol] 134 mmol/L Low 136-145 [facility] Comment on above: Order Comment: No: D o not add to previous draw Performed By: #### 5 6101, 95599, 85794, 52723, 84149, 99801, 93691 #### [facility] [address] [place] [id number], [facility] Urea nitrogen [Mass/Vol] 10 mg/dL Normal 7-25 [facility] [place] Comment on above: Order Comment: No: D o not add to previous draw Performed By: #### 5 6101, 81471, 30592, 20312, 14105, 22860, 33492 #### [facility] [address] CBC COMPLETE BLOOD COUNTon 12-31-2018 Erythrocyte distribution width (RBC) [Ratio] 14.1 % Normal 11.5-15.0 [facility] Comment on above: Order Comment: No: D o not add to previous draw Performed By: #### 5 6101, 88432, 22503, 65628, 12571, 39622, 69439 #### [facility] [address] [place] [address], [facility] Hematocrit (Bld) [Volume fraction] 32.9 % Low 39.0-50.0 [facility] [place] Comment on above: Order Comment: No: D o not add to previous draw Performed By: #### 5 6101, 94657, 34477, 28881, 38105, 27371, 95906 #### [facility] [address] [place] [id number], [facility] Hemoglobin (Bld) [Mass/Vol] 11.3 g/dL Low 13.0-17.0 [facility] Comment on above: Order Comment: No: D o not add to previous draw Performed By: #### 5 6101, 57669, 51400, 84935, 74788, 80805, 56037 #### [facility] [address] [facility] [place] [address], [facility] IMM PLATELET FRAC 6.4 % High 0.8-6.3 [facility] Comment on above: Order Comment: No: D o not add to previous draw Performed By: #### 5 6101, 27586, 65311, 23664, 89002, 64620, 11092 #### [facility] [address] [facility] [place] [address], [facility] MCH (RBC) [Entitic mass] 30.9 pg Normal 27.0-33.0 [facility] Comment on above: Order Comment: No: D o not add to previous draw Performed By: #### 5 6101, 38427, 42857, 50915, 32512, 37395, 32876 #### [facility] [address] [facility]. [address] MCHC (RBC) [Mass/Vol] 34.3 g/dL Normal 32.0-35.0 [facility] Comment on above: Order Comment: No: D o not add to previous draw Performed By: #### 5 6101, 60130, 59416, 12300, 05549, 30766, 99103 #### [facility] [address] [facility] [place] [place] [address], [facility] MCV (RBC) [Entitic vol] 89.9 fL Normal 82.0-98.0 [facility] Comment on above: Order Comment: No: D o not add to previous draw Performed By: #### 5 6101, 85230, 92444, 84028, 17944, 79815, 36667 #### [facility] [address] [place] [address], [facility] Nucleated RBC/100 WBC (Bld) [Ratio] 0 % Normal 0-0 [facility] Comment on above: Order Comment: No: D o not add to previous draw Performed By: #### 5 6101, 37971, 13818, 21140, 01132, 42521, 17958 #### [facility] [address] [place] [address], [facility] PLAT CNT 77 10*3/uL Low 150-400 [facility] Comment on above: Order Comment: No: D o not add to previous draw Performed By: #### 5 6101, 43714, 85672, 94660, 18805, 50911, 64967 #### [facility] [address] [place] [address], [facility] RBC (Bld) [#/Vol] 3.66 10*6/uL Low 4.20-5.70 [facility] Comment on above: Order Comment: No: D o not add to previous draw Performed By: #### 5 6101, 18427, 94651, 38597, 54346, 83637, 84601 #### [facility] [address] [place] [address], [facility] WBC (Bld) [#/Vol] 11.15 10*3/uL High 4.00-10.60 The [facility] Comment on above: Order Comment: No: D o not add to previous draw Performed By: #### 5 6101, 70046, 71091, 57106, 97374, 44409, 12680 #### [facility] [address] [place] [address], [facility] LACTATE BLOODon 10-30-2019 Lactate [Moles/Vol] 0.7 mmol/L Normal 0.5-2.2 The [facility] Comment on above: Order Comment: No: D o not add to previous draw Performed By: #### 5 6101, 49712, 35769, 93320, 16419, 74021, 66568 #### [facility] [address] [place] [address], [facility] LIVER BATTERYon 10-30-2019 Albumin [Mass/Vol] 2.1 g/dL Low 3.5-5.7 The [facility] Comment on above: Order Comment: No: D o not add to previous draw Performed By: #### 5 6101, 82033, 33670, 39111, 53513, 18232, 06528 #### [facility] [address] [place] [id number], [facility] ALKALINE PHOSPH 113 IU/L High 34-104 The [facility] Comment on above: Order Comment: No: D o not add to previous draw Performed By: #### 5 6101, 77016, 65294, 98583, 12832, 08103, 61223 #### [facility] [address] [place] [address], [facility] ALT [Catalytic activity/Vol] 28 U/L Normal 7-52 The [facility] [place] Comment on above: Order Comment: No: D o not add to previous draw Performed By: #### 5 6101, 64528, 57345, 79595, 88302, 28948, 19154 #### [facility] [address] [place] [address], [place] AST [Catalytic activity/Vol] 19 U/L Normal 13-39 The [facility] Comment on above: Order Comment: No: D o not add to previous draw Performed By: #### 5 6101, 90946, 49505, 75631, 41987, 94968, 69935 #### [facility] [address] [place] [address], [place] Bilirubin [Mass/Vol] 2.8 mg/dL High 0.3-1.0 The [facility] Comment on above: Order Comment: No: D o not add to previous draw Performed By: #### 5 6101, 47848, 24494, 74563, 52554, 25935, 49694 #### [facility] [address] [place] [address], [place] Bilirubin.direct [Mass/Vol] 1.9 mg/dL High 0.0-0.2 The [facility] [place] Comment on above: Order Comment: No: D o not add to previous draw Performed By: #### 5 6101, 66042, 26326, 26055, 14319, 82363, 65454 #### [facility] [address] [place] [address], [facility] Protein [Mass/Vol] 4.7 g/dL Low 6.0-8.3 The [facility] Comment on above: Order Comment: No: D o not add to previous draw Performed By: #### 5 6101, 10892, 13121, 69717, 22040, 36345, 55419 #### [facility] [address] [place] [address], [facility] MAGNESIUM BLOODon 10-30-2019 Magnesium [Mass/Vol] 2.0 mg/dL Normal 1.9-2.7 [facility] Comment on above: Order Comment: No: D o not add to previous draw Performed By: #### 5 6101, 25107, 48584, 28804, 39837, 22041, 90016 #### [facility] [address] [place] [address], [facility] PHOSPHORUS BLOODon 9 Phosphate [Mass/Vol] 3.3 mg/dL Normal 2.5-5.0 [facility] Comment on above: Order Comment: No: D o not add to previous draw Performed By: #### 5 6101, 39380, 74044, 65281, 82918, 18265, 92582 #### [facility] [address] [place] [address], [facility] UFH HEPARIN ASSAYon 10-30-20 19 UNFRACTIONATED HEPARIN 0.43 IU/mL Normal 0.30-0.70 The [facility] [place] Comment on above: Result Comment: [place] roxaban and Apixaban will interfere with the anti Xa assay used to monitor UFH and LMWH. Performed By: #### 5 6101, 99654, 32005, 40017, 90484, 33884, 52339 #### [facility] [address] [place] [address], [facility] BASIC METABOLIC PANELon 11-3 02019 Calcium [Mass/Vol] 7.3 mg/dL Low 8.6-10.3 [facility] Comment on above: Order Comment: No: D o not add to previous draw Performed By: #### 5 6101, 36133, 21539, 42574, 40520, 23068, 59033 #### [facility] [address] [place] [address], [facility] Chloride [Moles/Vol] 95 mmol/L Low 98-107 The [facility] [place] Comment on above: Order Comment: No: D o not add to previous draw Performed By: #### 5 6101, 47379, 08382, 57310, 04082, 34681, 89178 #### [facility] [address] [place] [address], [facility] CO2 [Moles/Vol] 33 mmol/L High 21-31 [facility] Comment on above: Order Comment: No: D o not add to previous draw Performed By: #### 5 6101, 65401, 68924, 10902, 80368, 78080, 40481 #### [facility] [address] [place] [id number], [facility] Creatinine [Mass/Vol] 0.63 mg/dL Low 0.70-1.30 The [facility] Comment on above: Order Comment: No: D o not add to previous draw Performed By: #### 5 6101, 72947, 91442, 35133, 89027, 11828, 86941 #### [facility] [address] [place] [address], [facility] GFR/1.73 sq M predicted among blacks MDRD (S/P/Bld) [Vol rate/Area] mL/min/{1.73_m2} Normal >60 The [facility] [place] Comment on above: Order Comment: No: D o not add to previous draw Performed By: #### 5 6101, 22753, 13542, 68472, 10242, 89584, 37066 #### [facility] [address] [place] [address], [facility] GFR/1.73 sq M predicted among non-blacks MDRD (S/P/Bld) [Vol rate/Area] mL/min/{1.73_m2} Normal >60 The [facility] [place] Comment on above: Order Comment: No: D o not add to previous draw Performed By: #### 5 6101, 68999, 03528, 99754, 75507, 98612, 43696 #### [facility] [address] [place] [address], [place] Glucose [Mass/Vol] 134 mg/dL High 70-100 [facility] Comment on above: Order Comment: No: D o not add to previous draw Performed By: #### 5 6101, 42820, 67474, 61199, 13715, 75958, 68056 #### [facility] [address] [place] [address], [place] Potassium [Moles/Vol] 3.8 mmol/L Normal 3.5-5.1 The [facility] [place] Comment on above: Order Comment: No: D o not add to previous draw Performed By: #### 5 6101, 79574, 61566, 80356, 72121, 46245, 27512 #### [facility] [address] [place] [address], [place] Sodium [Moles/Vol] 132 mmol/L Low 136-145 [facility] Comment on above: Order Comment: No: D o not add to previous draw Performed By: #### 5 6101, 89708, 32208, 01934, 03666, 71482, 22257 #### [facility] [address] [place] [address], [place] Urea nitrogen [Mass/Vol] 10 mg/dL Normal 7-25 The [facility] Comment on above: Order Comment: No: D o not add to previous draw Performed By: #### 5 6101, 60643, 10778, 51609, 96824, 37387, 42372 #### [facility] [address] [place] [address], [facility] CBC W/DIFFon 10-29-2019 ABS BASOPHILS 0.1 10*3/uL Normal 0.0-0.2 The [facility] Comment on above: Order Comment: No: D o not add to previous draw Performed By: #### 8 4511 #### [facility] [address] [facility] [place] [address], [facility] ABS IMM GRANS 0.2 10*3/uL Normal 0.0-0.2 [facility] Comment on above: Order Comment: No: D o not add to previous draw Performed By: #### 8 4511 #### [facility] [address] [facility] [place] [address], [facility] ABS NEUTROPHILS 12.1 10*3/uL High 1.6-7.6 The [facility] Comment on above: Order Comment: No: D o not add to previous draw Performed By: #### 8 4511 #### [facility] [address] [facility] [place] [place] [address], [facility] Basophils/100 WBC (Bld) 0.4 % Normal 0.0-1.0 The [facility] [place] Comment on above: Order Comment: No: D o not add to previous draw Performed By: #### 8 4511 #### [facility] [address] [facility] [place] [place] [address], [facility] MAXINE CELLS Moderate Normal The [facility] [place] Comment on above: Order Comment: No: D o not add to previous draw Performed By: #### 8 4511 #### [facility] [address] [place] [address], [facility] Eosinophils (Bld) [#/Vol] 0.0 10*3/uL Normal 0.0-0.5 The [facility] [place] Comment on above: Order Comment: No: D o not add to previous draw Performed By: #### 8 4511 #### [facility] [address] [place] [address], [facility] Eosinophils/100 WBC (Bld) 0.0 % Normal 0.0-6.0 The [facility] [place] Comment on above: Order Comment: No: D o not add to previous draw Performed By: #### 8 4511 #### [facility] [address] [place] [address], [facility] Erythrocyte distribution width (RBC) [Ratio] 14.2 % Normal 11.5-15.0 The [facility] [place] Comment on above: Order Comment: No: D o not add to previous draw Performed By: #### 8 4511 #### [facility] [address] [place] [address], [facility] Hematocrit (Bld) [Volume fraction] 34.8 % Low 39.0-50.0 The [facility] [place] Comment on above: Order Comment: No: D o not add to previous draw Performed By: #### 8 4511 #### [facility] [address] [place] [address], [facility] Hemoglobin (Bld) [Mass/Vol] 12.3 g/dL Low 13.0-17.0 The [facility] [place] Comment on above: Order Comment: No: D o not add to previous draw Performed By: #### 8 4511 #### [facility] [address] [place] [address], [facility] IMM PLATELET FRAC 7.9 % High 0.8-6.3 The [facility] Comment on above: Order Comment: No: D o not add to previous draw Performed By: #### 8 4511 #### [facility] [address] [place] [address], [place] IMMATURE GRANS 1.1 % High 0.0-1.0 The [facility] Comment on above: Order Comment: No: D o not add to previous draw Performed By: #### 8 4511 #### [facility] [address] [place] [address], [facility] Lymphocytes (Bld) [#/Vol] 0.7 10*3/uL Low 1.2-4.0 The [facility] [place] Comment on above: Order Comment: No: D o not add to previous draw Performed By: #### 8 4511 #### [facility] [address] [place] [address], [facility] Lymphocytes/100 WBC (Bld) 5.2 % Low 20.0-45.0 The [facility] Comment on above: Order Comment: No: D o not add to previous draw Performed By: #### 8 4511 #### [facility] [address] [place] [address], [facility] MCH (RBC) [Entitic mass] 31.2 pg Normal 27.0-33.0 The [facility] Comment on above: Order Comment: No: D o not add to previous draw Performed By: #### 8 4511 #### [facility] [address] [facility] [place] [address], [facility] MCHC (RBC) [Mass/Vol] 35.3 g/dL High 32.0-35.0 The [facility] Comment on above: Order Comment: No: D o not add to previous draw Performed By: #### 8 4511 #### [facility] [address] [facility] [place] [address], [facility] MCV (RBC) [Entitic vol] 88.3 fL Normal 82.0-98.0 The [facility] Comment on above: Order Comment: No: D o not add to previous draw Performed By: #### 8 4511 #### [facility] [address] [place] [address], [facility] Monocytes (Bld) [#/Vol] 0.5 10*3/uL Normal 0.1-1.0 The [facility] Comment on above: Order Comment: No: D o not add to previous draw Performed By: #### 8 4511 #### [facility] [address] [place] [address], [facility] MONOS 3.4 % Low 5.0-12.0 The [facility] [place] Comment on above: Order Comment: No: D o not add to previous draw Performed By: #### 8 4511 #### [facility] [address] [place] [address], [facility] Neutrophils (Bld) [#/Vol] Slight Normal The [facility] [place] Comment on above: Order Comment: No: D o not add to previous draw Performed By: #### 8 4511 #### [facility] [address] [place] [address], [facility] Neutrophils/100 WBC (Bld) 89.9 % High 40.0-72.0 The [facility] [place] Comment on above: Order Comment: No: D o not add to previous draw Performed By: #### 8 4511 #### [facility] [address] [place] [address], [place] Nucleated RBC/100 WBC (Bld) [Ratio] 0 % Normal 0-0 The [facility] Comment on above: Order Comment: No: D o not add to previous draw Performed By: #### 8 4511 #### [facility] [address] [place] [address], [facility] OTHER 2 Checked by Jennifer Cabrera M.D. Normal The [facility] Comment on above: Order Comment: No: D o not add to previous draw Result Comment: Resu lt changed by LIOR on 10/31/2019 14:05. The previous value was Preliminary report; verified report to follow. Performed By: #### 8 4511 #### [facility] [address] [place] [address], [place] PLAT CNT 76 10*3/uL Low 150-400 The [facility] Comment on above: Order Comment: No: D o not add to previous draw Performed By: #### 8 4511 #### [facility] [address] [place] [address], [facility] POIK Moderate Normal The [facility] [place] Comment on above: Order Comment: No: D o not add to previous draw Performed By: #### 8 4511 #### [facility] [address] [place] [address], [place] RBC (Bld) [#/Vol] 3.94 10*6/uL Low 4.20-5.70 The [facility] Comment on above: Order Comment: No: D o not add to previous draw Performed By: #### 8 4511 #### [facility] [address] [place] [address], [facility] TARGET CELLS Slight Normal The [facility] Comment on above: Order Comment: No: D o not add to previous draw Performed By: #### 8 4511 #### [facility] [address] [place] [address], [place] TOXIC GRANULATION Marked Normal The [facility] Comment on above: Order Comment: No: D o not add to previous draw Performed By: #### 8 4511 #### [facility] [address] [place] [address], [facility] WBC (Bld) [#/Vol] 13.45 10*3/uL High 4.00-10.60 The [facility] [place] Comment on above: Order Comment: No: D o not add to previous draw Performed By: #### 8 4511 #### [facility] [address] [place] [address], [place] LACTATE BLOODon 10-29-2019 Lactate [Moles/Vol] 1.3 mmol/L Normal 0.5-2.2 The [facility] Comment on above: Order Comment: No: D o not add to previous draw Performed By: #### 5 6101, 64507, 66014, 31160, 11043, 81839, 56625 #### [facility] [address] [place] [address], [facility] LIVER BATTERYon 10-29-2019 Albumin [Mass/Vol] 2.1 g/dL Low 3.5-5.7 [facility] Comment on above: Order Comment: No: D o not add to previous draw Performed By: #### 5 6101, 60299, 69411, 08337, 84968, 45389, 14497 #### [facility] [address] [place] [id number], [facility] ALKALINE PHOSPH 133 IU/L High 34-104 [facility] Comment on above: Order Comment: No: D o not add to previous draw Performed By: #### 5 6101, 07733, 28208, 14478, 55275, 67417, 59381 #### [facility] [address] [place] [address], [facility] ALT [Catalytic activity/Vol] 34 U/L Normal 7-52 The [facility] [place] Comment on above: Order Comment: No: D o not add to previous draw Performed By: #### 5 6101, 93808, 31878, 01835, 94107, 78839, 83402 #### [facility] [address] [place] [address], [facility] AST [Catalytic activity/Vol] 23 U/L Normal 13-39 The [facility] [place] Comment on above: Order Comment: No: D o not add to previous draw Performed By: #### 5 6101, 66701, 36201, 74996, 55946, 16654, 71960 #### [facility] [address] [place] [id number], [facility] Bilirubin [Mass/Vol] 3.0 mg/dL High 0.3-1.0 [facility] Comment on above: Order Comment: No: D o not add to previous draw Performed By: #### 5 6101, 46223, 79276, 79932, 92308, 48720, 94070 #### [facility] [address] [place] [address], [facility] Bilirubin.direct [Mass/Vol] 2.2 mg/dL High 0.0-0.2 The [facility] [place] Comment on above: Order Comment: No: D o not add to previous draw Performed By: #### 5 6101, 08697, 27287, 05365, 60317, 19021, 33530 #### [facility] [address] [place] [address], [facility] Protein [Mass/Vol] 4.7 g/dL Low 6.0-8.3 [facility] Comment on above: Order Comment: No: D o not add to previous draw Performed By: #### 5 6101, 45649, 01700, 72670, 82951, 27541, 54716 #### [facility] [address] MAGNESIUM BLOODon 10-29-2019 Magnesium [Mass/Vol] 1.9 mg/dL Normal 1.9-2.7 The [facility] [place] Comment on above: Order Comment: No: D o not add to previous draw Performed By: #### 8 4511 #### [facility] [address] [facility] [address] PHOSPHORUS BLOODon 9 Phosphate [Mass/Vol] 3.5 mg/dL Normal 2.5-5.0 The [facility] [place] Comment on above: Order Comment: No: D o not add to previous draw Performed By: #### 5 6101, 50902, 95383, 76997, 51357, 87769, 39216 #### [facility] [address] UFH HEPARIN ASSAYon 10-29-20 19 UNFRACTIONATED HEPARIN 0.31 IU/mL Normal 0.30-0.70 The [facility] [place] Comment on above: Result Comment: [place] roxaban and Apixaban will interfere with the anti Xa assay used to monitor UFH and LMWH. Performed By: #### 5 6101, 45837, 46841, 21760, 54359, 50198, 73443 #### [facility] [address] UNFRACTIONATED HEPARIN <0.10 Critically low 0.30-0.70 The [facility] [place] Comment on above: Result Comment: [place] roxaban and Apixaban will interfere with the anti Xa assay used to monitor UFH and LMWH. RESULTS CHECKED AND CALLED. ACCURATELY READ BACK BY MATTHEW HERNANDEZ RN AT 13:10 Performed By: #### 5 6101, 23154, 74443, 06765, 35468, 15243, 61702 #### [facility] [address] UNFRACTIONATED HEPARIN <0.10 Critically low 0.30-0.70 [facility] Comment on above: Result Comment: [place] roxaban and Apixaban will interfere with the anti Xa assay used to monitor UFH and LMWH. RESULTS CHECKED AND CALLED. ACCURATELY READ BACK BY BRANDON VAN RN AT 0532. Performed By: #### 5 6101, 18363, 41551, 13840, 68077, 99527, 16609 #### [facility] [address] *BLOOD CULTUREon 10-28-2019 Bacteria identified Cx Nom (Bld) Clinical Report: (D) Specimen: BLOOD CULTURE Collected: 10/28/2019 11:05 Status: Final Last Updated: 11/02/2019 14:57 CULT RES (Final) No Growth Day 5 Normal The [facility] Comment on above: Performed By: #### 5 6101, 04900, 64907, 93496, 81757, 05917, 15837 #### [facility] [address] ANTITHROMBIN III ACTIVITYon 10-28-2019 AT 3 ACTIVITY 69 % Low 70-120 The [facility] Comment on above: Performed By: #### 5 6101, 22106, 96111, 20749, 59912, 36967, 44211 #### [facility] [address] [place], [place] [id number] [place] [address] APC RESISTANCE ASSAYon 10-28 APC RESISTANCE 2.4 RATIO Normal 2.0-4.9 [facility] Comment on above: Performed By: #### 5 6101, 15445, 17556, 59453, 40372, 52245, 13834 #### [facility] [address] APTTon 10-28-2019 aPTT Coag (Bld) [Time] 33.7 s Normal 25.0-35.0 The [facility] Comment on above: Order Comment: No: D [...] THIS PURPOSE. Performed By: #### 5 6101, 06038, 24157, 82483, 65138, 91305, 67055 #### [facility] [address] ARTERIAL BLOOD GAS WITH ICAo n 10-28-2019 BASE EXCESS 7 mmol/L High -2-3 The [facility] Comment on above: Performed By: #### 8 4511 #### [facility] [address] [place] [address], [facility] DELIVERY SYSTEMS RA Normal The [facility] Comment on above: Performed By: #### 8 6511 #### [facility] [address] [facility] [place] [address], [facility] HCO3 (Bld) [Moles/Vol] 31 mmol/L Critically high 21-28 The [facility] Comment on above: Performed By: #### 8 4721 #### [facility] [address] [facility] [place] [address], [facility] IONIZED CALCIUM 1.09 mmol/L Low 1.13-1.32 [facility] Comment on above: Performed By: #### 8 4511 #### [facility] [address] [place] [address], [place] MODALITY RA Normal The [facility] Comment on above: Performed By: #### 8 4511 #### [facility] [address] [place] [address], [place] Oxygen (Bld) [Partial pressure] 66 mm[Hg] Low 83-108 The [facility] Comment on above: Performed By: #### 8 4511 #### [facility] [address] [place] [address], [facility] Oxygen saturation in Blood 91.4 % Low 94.0-97.0 [facility] Comment on above: Performed By: #### 8 4511 #### [facility] [address] [place] [address], [place] PCO2 40 mmHg Normal 35-45 The [facility] Comment on above: Performed By: #### 8 4511 #### [facility] [address] [place] [address], [place] pH (Bld) 7.49 [pH] High 7.35-7.45 The [facility] Comment on above: Performed By: #### 8 4511 #### [facility] [address] [place] [address], [place] BASIC METABOLIC PANELon 11-2 Calcium [Mass/Vol] 7.8 mg/dL Low 8.6-10.3 [facility] Comment on above: Order Comment: No: D o not add to previous draw Performed By: #### 8 4511 #### [facility] [address] [place] [address], [place] Chloride [Moles/Vol] 91 mmol/L Low 98-107 [facility] Comment on above: Order Comment: No: D o not add to previous draw Performed By: #### 8 4511 #### [facility] [address] [place] [address], [place] CO2 [Moles/Vol] 28 mmol/L Normal 21-31 The [facility] Comment on above: Order Comment: No: D o not add to previous draw Performed By: #### 8 4511 #### [facility] [address] [place] [address], [place] Creatinine [Mass/Vol] 0.50 mg/dL Low 0.70-1.30 The [facility] Comment on above: Order Comment: No: D o not add to previous draw Performed By: #### 8 4511 #### [facility] [address] [place] [address], [place] GFR/1.73 sq M predicted among blacks MDRD (S/P/Bld) [Vol rate/Area] mL/min/{1.73_m2} Normal >60 The [facility] Comment on above: Order Comment: No: D o not add to previous draw Performed By: #### 8 4511 #### [facility] [address] [place] [address], [place] GFR/1.73 sq M predicted among non-blacks MDRD (S/P/Bld) [Vol rate/Area] mL/min/{1.73_m2} Normal >60 The [facility] Comment on above: Order Comment: No: D o not add to previous draw Performed By: #### 8 4511 #### [facility] [address] [place] [address], [place] Glucose [Mass/Vol] 137 mg/dL High 70-100 [facility] Comment on above: Order Comment: No: D o not add to previous draw Performed By: #### 8 4511 #### [facility] [address] [place] [address], [place] Potassium [Moles/Vol] 3.8 mmol/L Normal 3.5-5.1 The [facility] Comment on above: Order Comment: No: D o not add to previous draw Performed By: #### 8 4511 #### [facility] [address] [place] [id number], [facility] Sodium [Moles/Vol] 125 mmol/L Low 136-145 The [facility] Comment on above: Order Comment: No: D o not add to previous draw Performed By: #### 8 4511 #### [facility] [address] [place] [address], [facility] Urea nitrogen [Mass/Vol] 9 mg/dL Normal 7-25 The [facility] Comment on above: Order Comment: No: D o not add to previous draw Performed By: #### 8 4511 #### [facility] [address] [facility] [place] [address], [facility] CBC W/DIFFon 10-28-2019 ABS BASOPHILS 0.1 10*3/uL Normal 0.0-0.2 The [facility] Comment on above: Performed By: #### 5 0103 #### [facility] [address] [facility] [place] [address], [facility] ABS IMM GRANS 0.1 10*3/uL Normal 0.0-0.2 The [facility] Comment on above: Performed By: #### 5 0103 #### [facility] [address] [place] [id number], [facility] ABS NEUTROPHILS 12.6 10*3/uL High 1.6-7.6 [facility] Comment on above: Performed By: #### 5 0103 #### [facility] [address] [place] [id number], [facility] Basophils/100 WBC (Bld) 0.4 % Normal 0.0-1.0 The [facility] Comment on above: Performed By: #### 5 0103 #### [facility] [address] [place] [address], [facility] Eosinophils (Bld) [#/Vol] 0.0 10*3/uL Normal 0.0-0.5 The [facility] Comment on above: Performed By: #### 5 0103 #### [facility] [address] [facility] [place] [address], [facility] Eosinophils/100 WBC (Bld) 0.1 % Normal 0.0-6.0 The [facility] Comment on above: Performed By: #### 5 0103 #### [facility] [address] [facility]. [address] Erythrocyte distribution width (RBC) [Ratio] 13.6 % Normal 11.5-15.0 The [facility] Comment on above: Performed By: #### 5 0103 #### [facility] [address] [facility] [address] Hematocrit (Bld) [Volume fraction] 36.1 % Low 39.0-50.0 The [facility] Comment on above: Performed By: #### 5 0103 #### [facility] [address] [facility] [place] [address], [facility] Hemoglobin (Bld) [Mass/Vol] 12.8 g/dL Low 13.0-17.0 [facility] Comment on above: Performed By: #### 5 0103 #### [facility] [address] [facility] [place] [place] [address], [facility] IMM PLATELET FRAC 5.9 % Normal 0.8-6.3 [facility] Comment on above: Performed By: #### 5 0103 #### [facility] [address] [place] [address], [facility] IMMATURE GRANS 0.9 % Normal 0.0-1.0 The [facility] Comment on above: Performed By: #### 5 0103 #### [facility] [address] [facility] [place] [address], [facility] Lymphocytes (Bld) [#/Vol] 0.6 10*3/uL Low 1.2-4.0 The [facility] Comment on above: Performed By: #### 5 3 #### [facility] [address] [place] [address], [facility] Lymphocytes/100 WBC (Bld) 4.5 % Low 20.0-45.0 The [facility] Comment on above: Performed By: #### 5 0103 #### [facility] [address] [place] [address], [facility] MCH (RBC) [Entitic mass] 31.0 pg Normal 27.0-33.0 The [facility] Comment on above: Performed By: #### 5 102 #### [facility] [address] MCHC (RBC) [Mass/Vol] 35.5 g/dL High 32.0-35.0 The [facility] Comment on above: Performed By: #### 5 3 #### [facility] [address] [place] [address], [facility] MCV (RBC) [Entitic vol] 87.4 fL Normal 82.0-98.0 The [facility] Comment on above: Performed By: #### 5 3 #### [facility] [address] [facility] [place] [place] [address], [facility] Monocytes (Bld) [#/Vol] 0.6 10*3/uL Normal 0.1-1.0 The [facility] Comment on above: Performed By: #### 5 3 #### [facility] [address] [place] [address], [facility] MONOS 4.6 % Low 5.0-12.0 The [facility] Comment on above: Performed By: #### 5 3 #### [facility] [address] [place] [address], [facility] Neutrophils/100 WBC (Bld) 89.5 % High 40.0-72.0 [facility] Comment on above: Performed By: #### 5 0103 #### [facility] [address] [place] [id number], [facility] Nucleated RBC/100 WBC (Bld) [Ratio] 0 % Normal 0-0 The [facility] Comment on above: Performed By: #### 5 0103 #### [facility] [address] [facility] [place] [place] [address], [facility] PLAT CNT 98 10*3/uL Low 150-400 [facility] Comment on above: Performed By: #### 5 0103 #### [facility] [address] [facility] [place] [address], [facility] RBC (Bld) [#/Vol] 4.13 10*6/uL Low 4.20-5.70 [facility] Comment on above: Performed By: #### 5 0103 #### [facility] [address] [facility] [place] [place] [address], [facility] WBC (Bld) [#/Vol] 14.05 10*3/uL High 4.00-10.60 [facility] Comment on above: Performed By: #### 5 0103 #### [facility] [address] [facility] [place] [id number], [facility] FACTOR IIon 10-28-2019 FACTOR II 69 % Normal 65-120 The [facility] Comment on above: Performed By: #### 5 6101, 19214, 36480, 99119, 35933, 20443, 03164 #### [facility] [address] [facility] [place] [place] [address], [facility] HOMOCYSTEINEon 10-28-2019 HOMOCYSTEINE 8.1 umol/L Normal 4.0-12.0 The [facility] Comment on above: Performed By: #### 5 6101, 03734, 50069, 98995, 85819, 13691, 28305 #### [facility] [address] [place] [address], [facility] LACTATE BLOODon 10-28-2019 Lactate [Moles/Vol] 1.2 mmol/L Normal 0.5-2.2 [facility] Comment on above: Order Comment: No: D o not add to previous draw Performed By: #### 1 0054 #### [facility] [address] [place] [address], [facility] LIVER BATTERYon 10-28-2019 Albumin [Mass/Vol] 2.4 g/dL Low 3.5-5.7 The [facility] Comment on above: Order Comment: No: D o not add to previous draw Performed By: #### 8 4511 #### [facility] [address] [place] [address], [facility] ALKALINE PHOSPH 187 IU/L High 34-104 [facility] Comment on above: Order Comment: No: D o not add to previous draw Performed By: #### 8 4511 #### [facility] [address] [place] [address], [facility] ALT [Catalytic activity/Vol] 50 U/L Normal 7-52 The [facility] Comment on above: Order Comment: No: D o not add to previous draw Performed By: #### 8 4511 #### [facility] [address] [place] [address], [facility] AST [Catalytic activity/Vol] 26 U/L Normal 13-39 The [facility] Comment on above: Order Comment: No: D o not add to previous draw Performed By: #### 8 4511 #### [facility] [address] [place] [address], [facility] Bilirubin [Mass/Vol] 3.3 mg/dL High 0.3-1.0 The [facility] Comment on above: Order Comment: No: D o not add to previous draw Performed By: #### 8 4511 #### [facility] [address] [place] [address], [facility] Bilirubin.direct [Mass/Vol] 2.2 mg/dL High 0.0-0.2 The [facility] Comment on above: Order Comment: No: D o not add to previous draw Performed By: #### 8 4511 #### [facility] [address] [place] [id number], [facility] Protein [Mass/Vol] 5.4 g/dL Low 6.0-8.3 [facility] Comment on above: Order Comment: No: D o not add to previous draw Performed By: #### 8 4511 #### [facility] [address] [place] [address], [facility] MAGNESIUM BLOODon 10-28-2019 Magnesium [Mass/Vol] 1.9 mg/dL Normal 1.9-2.7 The [facility] Comment on above: Order Comment: No: D o not add to previous draw Performed By: #### 8 4511 #### [facility] [address] Operative Reporton 9 Operative Report MR#: [id number] I [facility] Pt. Name: Miguel Baron Room #: ANSLEY [id number] Discharge Date: Birthdate: 1960 OPERATIVE REPORT DATE [...] P/Dana Dawn MD Date Trans: 10/28/2019 05:02 P/johno [id number] cc: Jersey Whittaker D.O. [address] [facility] [phone] Wandy Magana M.D. E R Physican...do Not Send [facility] [address] Normal The [facility] PHOSPHORUS BLOODon 9 Phosphate [Mass/Vol] 3.8 mg/dL Normal 2.5-5.0 The [facility] Comment on above: Order Comment: No: D o not add to previous draw Performed By: #### 8 2421 #### [address] PORTABLE CHEST 1 VIEWon 10-01 PORTABLE CHEST 1 VIEW [facility] Department of Radiology [address] [place] [id number] ======== Patient Name: MIGUEL BARON : 1960 Sex: M Age: Race: White Pt. Location: [place] [address] Patient Status: I Ordered Date: 10/28/2019 2:50:00 [...] findings. Electronically signed by:Wild Saravia. Transcribed by: [email or web address], User Resident: NELSY KENDRICK Electronically Signed by: WILD SARAVIA @ 10/28/2019 04:50 PM I personally read this/these film(s) with this resident Normal The [facility] Comment on above: Order Comment: Check NG Tube Position PROTEIN C ACTIVITYon 019 Protein [Mass/Vol] 47 % Critically low 60-140 Th e [facility] Comment on above: Performed By: #### 5 6101, 82919, 92818, 81518, 77644, 74678, 69954 #### [facility] [address] [facility]. [address] PROTEIN C ANTIGENon 10-28-20 19 Protein [Mass/Vol] 53 % Low 65-120 [facility] Comment on above: Performed By: #### 5 6101, 55236, 52895, 80363, 16854, 72804, 21115 #### [facility] [address] [place] [address], [facility] PROTEIN S ACTIVITYon 019 Protein [Mass/Vol] 70 % Normal 60-165 The [facility] Comment on above: Performed By: #### 5 6101, 53969, 89158, 85044, 39152, 87047, 10325 #### [facility] [address] [place] [address], [facility] PROTHROMBIN TIMEon 9 INR Coag (PPP) [Relative time] 1.27 {INR} High 0.91-1.16 The [facility] Comment on above: Order Comment: No: D [...] CHEST 1995;[id number]. Performed By: #### 5 6101, 65314, 79133, 94991, 60311, 59410, 07928 #### [facility] [address] [place] [address], [facility] PT Coag (PPP) [Time] 16.0 s High 12.3-14.8 The [facility] Comment on above: Order Comment: No: D o not add to previous draw Result Comment: ALL RESULTS MUST BE INTERPRETED WITH RESPECT TO BLOOD DRAWING ARTIFACT OR DILUTION ERROR OF ANTICOAGULANT AT THE TIME OF SAMPLING. Performed By: #### 5 6101, 93079, 74873, 52189, 40741, 32545, 68436 #### [facility] [address] UFH HEPARIN ASSAYon 10-28-20 19 UNFRACTIONATED HEPARIN <0.10 Critically low 0.30-0.70 The [facility] Comment on above: Result Comment: [place] roxaban and Apixaban will interfere with the anti Xa assay used to monitor UFH and LMWH. RESULTS CHECKED AND CALLED. ACCURATELY READ BACK BY BRANDON VAN RN AT 2150 ACTUAL UFH VALUE = 0.00 Performed By: #### 8 4511 #### [facility] [address] [facility]. [address] UNFRACTIONATED HEPARIN <0.10 Critically low 0.30-0.70 The [facility] Comment on above: Result Comment: [place] roxaban and Apixaban will interfere with the anti Xa assay used to monitor UFH and LMWH. RESULTS CHECKED AND CALLED. ACCURATELY READ BACK BY MATTHEW NUR RN AT 1831 Performed By: #### 8 4511 #### [facility] [address] [facility]. [address] Vital Signs Date Time Vital Sign Value Performing Clinician Facility 08-03-2024 09:24 Body height 187.96 cm [facility] 08-03-2024 09:24040 Body mass index (BMI) [Ratio] 23.6 kg/m2 [facility] 08-03-2024 09:24 Body weight 83.46 kg [facility] 08-03-2024 09:24040 Diastolic blood pressure 84 mm[Hg] [facility] 08-03-2024 09:24040 Heart rate 91 /min [facility] 08-03-2024 09:24-0400 Respiratory rate 12 /min [facility] 08-03-2024 09:24-0400 Systolic blood pressure 145 mm[Hg] [facility] 04-15-2024 11:07-0400 Body height 187.96 cm [facility] 04-15-2024 11:07-0400 Body mass index (BMI) [Ratio] 23.8 kg/m2 [facility] 04-15-2024 11:07-0400 Body weight 83.97 kg [facility] 04-15-2024 11:07-0400 Diastolic blood pressure 68 mm[Hg] [facility] 04-15-2024 11:07-0400 Heart rate 91 /min [facility] 04-15-2024 11:07-0400 Respiratory rate 12 /min [facility] 04-15-2024 11:07-0400 Systolic blood pressure 127 mm[Hg] [facility] 02-13-2023 11:30-0400 Body height 187.96 cm Jersey Ball Other [employer] [facility] [employer] Other 02-13-2023 11:30-0400 Body mass index (BMI) [Ratio] 25.47 kg/m2 Jersey Ball Other [employer] [facility] [employer] Other 02-13-2023 11:30-0400 Body weight 89.99 kg Jersey Ball Other [employer] [facility] [employer] Other 02-13-2023 11:30-0400 Diastolic blood pressure 79 mm[Hg] Jersey Ball Other [employer] Other 02-13-2023 11:30-0400 Respiratory rate 12 /min Jersey Ball Other [employer] Other 02-13-2023 11:30-0400 Systolic blood pressure 125 mm[Hg] Jersey Ball Other [employer] Other 06-04-2022 13:59-0400 Blood Pressure Location Edison NILL [facility] 06-04-2022 13:59-0400 Diastolic blood pressure 84 mm[Hg] Edison N[facility] 06-04-2022 13:59-0400 Heart rate 74 /min Edison NILL [facility] Arthur 06-04-2022 13:59-0400 Respiratory rate 16 /min Edison NILL [facility] Alex 06-04-2022 13:59-0400 Systolic blood pressure 124 mm[Hg] Edison NILL [facility] Encounters Encounter Date Encounter Type Care Provider Facility Start: 07-05-2025 End: 07-05-2025 ambulatory Edison SALEH Facility:[facility] Start: 07-05-2025 End: 07-05-2025 Patient encounter procedure Edison SALEH [facility] General Surgery Alex Start: 08-29-2024 End: 08-29-2024 ambulatory [facility] Work Phone: Start: 08-29-2024 End: 08-29-2024 Patient encounter procedure [facility] Work Phone: Start: 08-03-2024 End: 08-03-2024 ambulatory [facility] Work Phone: Start: 08-03-2024 End: 08-03-2024 Patient encounter procedure [facility] Work Phone: Start: 04-15-2024 End: 04-15-2024 ambulatory [facility] Work Phone: Start: 04-15-2024 End: 04-15-2024 Patient encounter procedure [facility] Work Phone: Start: 08-12-2023 End: 08-12-2023 ambulatory Stephy Benson Other [employer] Other Start: 08-12-2023 Nursing evaluation o f patient and report Stephywilfred Benson [facility] Start: 04-24-2023 End: 04-25-[address] JERSEY WHITTAKER Facility:[facility] Start: 04-16-2023 End: 04-17-[address] HANSEN LISTED REQUEST Facility:[facility] Start: 02-13-2023 End: 02-13-2023 ambulatory Jersey Whittaker Other [employer] Other Start: 02-13-2023 Office outpatient vi sit 15 minutes Jersey Whittaker [facility] Start: 07-23-2022 End: 07-23-[address] EDISON SALEH . Facility:[facility] Start: 07-22-2022 Encounter for preprocedural cardiovascular examination DR EDISON SALEH . The [facility] Start: 07-22-2022 Encounter for preprocedural laboratory examination DR EDISON SALEH . The [facility] Start: 07-18-2022 End: 07-19-[address] EDISON SALEH . Facility:[facility] Start: 07-18-2022 End: 07-19-2022 Encounter for preprocedural cardiovascular examination DR EDISON SALEH . Facility:[facility] Start: 06-04-2022 End: 06-04-2022 Patient encounter procedure Edison SALEH General Surgery Nicky[facility]Said Alex Start: 05-19-2022 End: 05-20-[address] JERSEY WHITTAKER Facility:[facility] Start: 04-14-2022 Adult health examination Karen Benson Other [employer] Other Start: 01-16-2020 End: 01-16-2020 Emergency department patient visit ALISON ARIZMENDI Facility:[facility] Start: 10-28-2019 End: 11-07-2019 Evaluation and management of inpatient PEBBLES Olya BUSCH Facility:[facility] Procedures Date Procedure Procedure Detail Performing Clinician Start: 04-16-[address] CHIRAG WHITTAKER Comment on above: Performed By: #### D ATBMP, DATPSA #### [facility] [address] [place] [address] [address] Mayra Zuluaga Start: 07-23-2022 Colonoscopy Edison YUE BAÑUELOS Start: 05-19-[address] CHIRAG WHITTAKER Comment on above: Performed By: #### D ATPSA #### [facility] [address] [place] [address] [address] Mayra Zuluaga Start: 11-07-2019 Antibody screen PEBBLES BUSCH Comment on above: Performed By: #### 1 0054 #### [facility] [address] Start: 11-01-2019 Antibody screen PEBBLES BUSCH Comment on above: Performed By: #### 5 6101, 82600, 23923, 09699, 23552, 15505, 56234 #### [facility] [address] [facility] [address] Start: 11-01-2019 TRANSFUSE NONAUT RED BLOOD CELLS IN PERIPH VEIN, PERC PEBBLES BUSCH Start: 10-28-2019 INSPECTION OF LOWER INTESTINAL TRACT, OPEN APPROACH PEBBLES BUSCH Start: 10-28-2019 MEASURE OF ARTERIAL SATURATION, PERIPHERAL, PERC APPROACH PEBBLES BUSCH Start: 03-12-2019 Laboratory test resu lt abnormal Stephy Benson Other Start: 01-22-2018 Hypertension screening Stephy Kelley Other Start: 07-06-2015 General examination of patient Stephy Kelley Other Start: 03-16-2009 Colonoscopy Edison NI LL Depression screening Tsephy Kelley Other Excision of cyst Edison Mendoza Comment on above: scrotum x 2 Exploratory laparotomy Kaiden SALEH Repair of ventral hernia Ansley SALEH Screening for malign ant neoplasm of prostate Stephy Benson Other Plan of Treatment Date Care Activity Detail Author [facility] Immunizations Immunization Date Immunization Notes Care Provider Fa cility 08-29-2024 influenza virus vaccine, unspecified formulation Edison SALEH [facility] General Surgery Alex 08-12-2023 influenza virus vaccine, unspecified formulation [facility] 08-12-2023 influenza, high dose seasonal, preservative-free Stephy Benson Other [facility] [employer] Other 08-12-2023 Prevnar 20 Stephy Benson Other [facility] 08-18-2022 influenza virus vaccine, split virus (incl. purified surface antigen) Stephy Benson Other [facility] [employer] Other 08-18-2022 influenza virus vaccine, unspecified formulation [facility] 08-18-2022 influenza, injectabl e, quadrivalent, preservative free [facility] 08-18-2022 influenza, injectabl e, quadrivalent, contains preservative Stephy Benson Other [facility] [employer] Other 11-11-2021 COVID-19 Vaccine Pfi zer - Documentation Purposes Only Stephy Benson Other [facility] 08-20-2021 influenza virus vaccine, split virus (incl. purified surface antigen) Stephy Benson Other [facility] [employer] Other 08-20-2021 influenza virus vaccine, unspecified formulation [facility] 03-05-2021 COVID-19 Vaccine Pfi zer - Documentation Purposes Only Stephy Benson Other [facility] 02-11-2021 COVID-19 Vaccine Pfi zer - Documentation Purposes Only Stephy Benson Other [facility] 07-13-2020 influenza virus vaccine, split virus (incl. purified surface antigen) Stephy Benson Other [employer] Other 07-13-2020 influenza virus vaccine, unspecified formulation [facility] 03-05-2020 COVID-19 Vaccine Pfi zer - Documentation Purposes Only Stephy Benson Other [facility] 08-25-2019 influenza virus vaccine, split virus (incl. purified surface antigen) Stephy Benson Other [employer] Other 08-25-2019 influenza virus vaccine, unspecified formulation [facility] 08-08-2018 influenza virus vaccine, split virus (incl. purified surface antigen) Stephy Benson Other [employer] Other 08-08-2018 influenza virus vaccine, unspecified formulation [facility] 09-02-2017 tetanus and diphther ia toxoids, adsorbed, preservative free, for adult use (5 Lf of tetanus toxoid and 2 Lf of diphtheria toxoid) Stephy Benson Other [facility] 08-30-2016 tetanus and diphther ia toxoids, adsorbed, preservative free, for adult use (5 Lf of tetanus toxoid and 2 Lf of diphtheria toxoid) Stephy Benson Other [facility] 09-07-2013 tetanus and diphther ia toxoids, adsorbed, preservative free, for adult use (5 Lf of tetanus toxoid and 2 Lf of diphtheria toxoid) Stephy Benson Other [facility] Payers Date Payer Category Payer Medicare [id number] 2022 Private Health Insurance [id number] Private Health Insurance [id number] 1959 Medicare [id number] 1959 Private Health Insurance [id number] 1959 Self-pay 1958 Unknown [id number] 2.16.8 [id number] 1958 Unknown [id number] 2.16.8 [id number] 1958 Unknown [id number] 2.16.84 [id number] 1958 Unknown [id number] 2.16.84 [id number] 1958 Unknown [id number] 2.16.84 [id number] 1958 Unknown [id number] 2.16.8 [id number] Unknown [id number] 2.16.84 [id number] Unknown [id number] 2.16.84 [id number] Social History Date Type Detail Facility Start: 06-04-2022 End: 07-05-2025 Tobacco smoking status Heavy tobacco smoker (finding) [facility] Tobacco smoking status Never [facility] Sex Assigned At Male [facility] Start: 1960 Sex Assigned At Male F [facility] Sexual Orientation [facility] Sex Male (finding) [facility] Functional Status Date Assessment Result Facility 06-04-2022 Functional Status N/A [facility] Clinical Notes 07-19-2022 to 07-05-2025 Note Date & Type Note Facility 07-05-2025 Note General Surgery Offi ce/Clinic Note Chief Complaint consultation for colonoscopy HPI Staff 65 year old male presents on consultation for surveillance colonoscopy. Last colonoscopy completed 06/2022 with rectal tubular adenoma. No known family history of colon cancer. Denies abdominal or rectal pain. No rectal bleeding or change in bowel habits. Denies nausea, vomiting or weight loss. History of Present Illness 65 yo male with h/o protein C deficiency, portal/splenic vein thrombosis, lumbar spondylosis, BPH, presents for surveillance colonoscopy; last colonoscopy 06/2022 done for positive Cologuard; had 1.5 cm tubular adenoma removed from rectum, site tattooed; also hyperplastic sigmoid polyp; denies change in bms or blood in stools, no abd complaints; abd operations significant for exploratory laparotomy and repair of ventral hernia; no asa or NSAID use; smokes daily; no fmhx of GI malignancy or IBD. Review of Systems PHQ Score Initial Depression Screen Score: 0 SCORE ROS - Provider Constitutional: no fever, no [...] noncontributory. Physical Exam Vitals & Measurements HR: 72(Peripheral) RR: 16 BP: 130/76 HT: 179 cm HT: 70 in WT: 80.5 kg WT: 177.472 lb BMI: 25.12 HEENT: normal conjunctiva, sclera clear, no scleral icterus, EOM intact, PERRLA, oral mucosa moist without lesions. Neck: trachea midline, no mass, symmetric, no thyromegaly or nodules, no adenopathy Respiratory: lungs CTA, respirations non labored. Cardiovascular: regular rate and rhythm, no murmur, no pedal edema or varicosities. Gastrointestinal: soft, non distended, no tenderness, no masses, no palpable hernias, diastasis recti no, no hepatosplenomegaly; normal bs Musculoskeletal: normal gait, digits and nails without infection, nodes, cyanosis, clubbing. Skin: no rashes, no lesions, no ulcers, no subcutaneous nodules, induration. Psychiatric/Neuro: oriented to time, place, person, judgement normal, affect appropriate for age, insight intact, no focal deficits. Tests: , review of old records completed , Discussed surgical options, risks, and possible complications with patient. Assessment/Plan 1. Personal history of adenomatous and serrated colon polyps (Z86.0101: Personal history of adenomatous and serrated colon polyps) plan colonoscopy under anesthesia, informed consent obtained. Follow-up No qualifying data available Problem List/Past Medical History Ongoing Acute mesenteric arterial occlusion Benign prostatic hyperplasia BMI 25.0-25.9,adult Hyperplastic polyp of sigmoid colon Lumbar spondylosis Overweight Personal history of adenomatous and serrated colon polyps Portal vein thrombosis Positive colorectal cancer screening using Cologuard test Protein C deficiency Splenic vein thrombosis Tobacco use Tubular adenoma of rectum Historical No qualifying data Procedure/Surgical History Colonoscopy (07/23/2022), Colonoscopy (03/16/2009), Excision of cyst, Exploratory laparotomy, Repair of ventral hernia. Medications No active medications Allergies No Known Allergies No Known Medication Allergies Social History Alcohol Current, Beer, 3-5 times per week, 07/05/2025 Substance Abuse - Denies Substance Abuse, 04/25/2020 Never., 07/05/2025 Tobacco 10 or more cigarettes (1/2 pack or more)/day in last 30 days Tobacco Use:. Never Smokeless Tobacco Use:. Cigarettes, 1 per day. Started age 25.0 Years. Yes, 07/05/2025 Family History Dementia: Mother. Hypertension: Mother. Primary malignant neoplasm of lung: Father. Immunizations Vaccine Date Status influenza virus vaccine, inactivated 08/29/2024 Recorded SARS-CoV-2 (COVID-19) mRNA BNT-162b2 vax 11/11/2021 Recorded SARS-CoV-2 (COVID-19) mRNA BNT-162b2 vax 03/05/2021 Recorded SARS-CoV-2 (COVID-19) mRNA BNT-162b2 vax 02/11/2021 Recorded [facility] Comment on above: Result Comment: Elec tronically Signed By: NICKY DALE, Edison Ernandez\Date and Time Signed: 07/05/25 15:20 EDT 02-13-2023 Evaluation note Encounter Date Diagnosis Assessment [...] to respiratory infections, vascular disease and cancers. [facility] Other 08-24-2022 NoteOPERATIVE NOTE OPERATION DATE: 07/23/2022 [...] in good condition. CC: Jersey Whittaker D.O.[id number] NoteEXAMINATION: XR CHEST 2 V HISTORY: Nicotine [...] authenticated by: DRAGAN PORTILLO Date: 2022-07-19 07:25[facility] No data available for this section [facility] Evaluation noteNo InformationNort Vam[place] Other Evaluation note* Diagnosis Onset Date Resolution Status Benign prostatic hyperplasia with lower urinary tract symptoms acute Lumbar spondylosis acute Nicotine addiction acute Medicare annual wellness visit, initial noneactive Screening PSA (prostate specific antigen) noneactive [facility] Work Phone: Evaluation noteNo assessment information available [facility] Work Phone: Evaluation note* Diagnosis Onset Date Resolution Status Allergic contact dermatitis acute Pruritic rash acute [facility] Work Phone: History general Narrative - [...] TUBULAR ADENOMA Hospitalization History SEE SURGICAL HX [facility] Other Hospital Discharge instructions No data available for this section [facility] Progress note No data available for this section [facility] Summary Purpose Family History No Family History Records Found Relationship Condition Age at Onset Recorded Date/T dain father Malignant neoplasm Unknown Not Specified Hypertension Unknown Relationship Condition Age at Onset Recorded Date/T dain father Malignant neoplasm Unknown mother Hypertension Unknown Advance Directives No Advanced Directives Records Found Advance Directive Response Recorded Date/ Time Advance Directives No December 23, 2023 10:05am Hospital Course Note MR#: [id number] [facility] Pt. Name: Miguel Baron Admitted: 10/28/2019 [...] is a 59-year-old male who presented to [facility] as a transfer from an outside hospital. [...] section and content) DATE CREATED AUTHOR 12/08/2019 [facility] DATE CREATED AUTHOR AUTHOR'S ORGANIZ ATION 01/19/2020 [facility] DATE CREATED AUTHOR AUTHOR'S ORGANIZ ATION 06/20/2022 [facility] DATE CREATED AUTHOR AUTHOR'S ORGANIZ ATION 05/08/2023 [facility] DATE CREATED AUTHOR AUTHOR'S ORGANIZ ATION 07/06/2025 [facility] Care Team (unrecognized sect ion and content) Team Status: Active Member Role Status Dates Jersey Whittaker , DO Primary Care Provider Active Team Status: [...] Member Role Status Dates Jersey Whittaker , Primary Care Provide r, Attending Provider Active [...] BE BASED ON THE PRIMARY CLINICAL RECORDS. [facility]. provides no warranty or guarantee of the accuracy or completeness of information in this document.
== END 2025-07-25 09:39 | disposition home or self-care (01) ==
LOC: PST 09:38
PROVIDERS: PCP Internal Medicine; Visit Provider Surgery
DX: Z01.818 Encounter for other preprocedural examination (principal); D12.8 Benign neoplasm of rectum; Z86.0101 Personal history of adenomatous and serrated colon polyps

== ENCOUNTER 2025-08-02 06:16 | Day surgery (SDC) | payer MEDICARE, OTHER, SELFPAY ==
--- NOTE | 2025-08-02 | OP_ITS ---
OPERATION DATE: 08/02/2025 PREOPERATIVE DIAGNOSIS: Personal history of colon polyps with the 1.5 cm rectal tubular adenoma removed in 2021. POSTOPERATIVE DIAGNOSIS: Flat polypoid area around the inferior rectal valve, adjacent to the tattooed area. PROCEDURE: Colonoscopy to cecum with multiple biopsies of flat polypoid area adjacent to tattooed area within the rectum. SURGEON: Luis Carlos Saleh M.D. ANESTHESIA: Monitored anesthesia care. ESTIMATED BLOOD LOSS: Less than 1 mL. INDICATIONS AND CONSENT: Patient is a 65-year-old male with a personal history of colon polyps. He had a 1.5 cm tubular adenoma removed from the rectum in 2021. This area was tattooed. He now presents for surveillance. Indications, risks, benefits, alternatives of proceeding with colonoscopy were explained extensively to the patient, including the risks of bleeding, colon perforation or anesthetic complications. All of his questions were answered. Informed consent was obtained. PROCEDURE: Patient brought to the operating room, placed in the left lateral decubitus position. Monitored anesthesia care was provided. Rectal exam was performed which showed no masses or blood. The scope was inserted into the anal canal. Under direct visualization was advanced. With the aid of abdominal compression and positional changes, it was able to be advanced to the cecum where cecal markings were clearly identified. There was noted to be a good prep. Upon withdrawal of the scope, mucosal surfaces were carefully examined. There were no mass lesions or inflammatory changes. There was mild sigmoid diverticulosis. Within the rectum, around the inferior rectal valve, there was noted to be a flat, polypoid-looking lesion. It was extending mostly behind the valve. It was adjacent to the tattooed area, which had no mucosal abnormalities. Several biopsies of this area were obtained with good hemostasis. The scope was retroflexed in the anal canal. There were prominent rectal veins, some small internal/external hemorrhoids. No bleeding. The scope was then withdrawn. Patient tolerated procedure well, was sent to recovery room in good condition.f/y colonoscopy likely in 1 year, but will depend on pathology results. CC: Dr. Sourav SANTOS
--- OUTSIDE RECORDS SUMMARY | 2025-08-02 06:21 | XMS_ITS | Clinical Summary ---
Author Organization [facility] Address [address] [place] [address] Phone Care Team Providers Care Drilling Fluids Specialist Name Role Phone Unavailable Primary Care Provider [...]
--- OUTSIDE RECORDS SUMMARY | 2025-08-02 06:21 | XMS_ITS | Clinical Summary ---
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 Not on [employer] Not [...] 1-dose 75+ series) [address] [place] [address] [facility] PPO
--- OUTSIDE RECORDS SUMMARY | 2025-08-02 06:22 | XMS_ITS | CCD ---
Author Organization [facility] Care Team Providers Care Cord Cutter Name Role Phone PEBBLES BUSCH Admitting Unavailable PEBBLES BUSCH Attending Unavailable WANDY MAGANA Referring Unavailable JERSEY WHITTAKER Primary Care Unavailable [place] Procedure Practitioner Unavailab PEBBLES Morgan Surgeon Unavailable [...] physicia Propensity to adverse reactions 4 Comment:Done [employer] Other (1 source) No Known Medication Allergies; Translations: [No Known Medication Allergies] Propensity to adverse reactions (disorder) [facility] Repository Medications Current Medications Medication Drug Class(es) [...] twice daily for 7 days Jan, Active [place] (No Known Home Meds) (1 source) Start: 04-15-2024 [place] (No Known Home Meds) Active April 15, [...] 15, 2024 11:05am take 1 capsule by [facility] every twenty-four hours Tamsulosin HCl 0.4 MG [...] current use of drug therapy; 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 Language Information Language assistance services are available as needed. Delma Vivas [facility] CT LUNG CANCER SCREENINGon 0 04-24-2023 CT [...] DRAGAN PORTILLO Date: 2023-04-24 10:47 Normal [facility] CBC AUTO DIFFon 04-16-2023 BASO # 0.0 103/ul Normal 0.0-0.1 [facility] Comment on above: Performed By: #### D ATCBC #### [facility] [address] [place] [address] Dr. Mayra Zuluaga Basophils/100 WBC (Bld) 0.6 % Normal 0.2-2.0 [facility] Comment on above: Performed By: #### D ATCBC #### [facility] [address] [place] [address] Dr. Mayra Zuluaga EO # 0.1 103/ul Normal 0.0-0.7 [facility] Comment on above: Performed By: #### D ATCBC #### [facility] [address] [place] [address] Dr. Mayra Zuluaga Eosinophils/100 WBC (Bld) 2.1 % Normal 0.9-7.0 [facility] Comment on above: Performed By: #### D ATCBC #### [facility] [address] [place] [address] Dr. Mayra Zuluaga Erythrocyte distribution width (RBC) [Ratio] 13.2 % Normal 11.0-15.0 [facility] Comment on above: Performed By: #### D ATCBC #### [facility] [address] [place] [address] Dr. Mayra Zuluaga Hematocrit (Bld) [Volume fraction] 45.2 % Normal 42.0-54.0 [facility] Comment on above: Performed By: #### D ATCBC #### [facility] [address] [place] [address] Dr. Mayra Zuluaga Hemoglobin (Bld) [Mass/Vol] 15.0 g/dL Normal 14.0-18.0 [facility] Comment on above: Performed By: #### D ATCBC #### [facility] [address] [place] [address] Dr. Mayra Zuluaga IG # 0.02 10e3/ul Normal 0.00-0.03 [facility] Comment on above: Performed By: #### D ATCBC #### [facility] [address] [place] [address] Dr. Mayra Zuluaga IG % 0.3 % Normal 0.0-0.5 [facility] Comment on above: Performed By: #### D ATCBC #### [facility] [address] [place] [address] Dr. Mayra Zuluaga LYMPH # 2.0 103/ul Normal 1.2-3.8 [facility] Comment on above: Performed By: #### D ATCBC #### [facility] [address] [place] [address] Dr. Mayra Zuluaga Lymphocytes/100 WBC (Bld) 32.3 % Normal 20.5-60.0 [facility] Comment on above: Performed By: #### D ATCBC #### [facility] [address] [place] [address] Dr. Mayra Zuluaga MCH (RBC) [Entitic mass] 31.0 pg Normal 25.9-34.0 [facility] Comment on above: Performed By: #### D ATCBC #### [facility] [address] [address] [address] Mayra Zuluaga MCHC (RBC) [Mass/Vol] 33.2 g/dL Normal 29.9-35.2 [facility] Comment on above: Performed By: #### D ATCBC #### [facility] [address] [address] [address] Mayra Zuluaga MCV (RBC) [Entitic vol] 93.4 fL Normal 80.0-94.0 [facility] Comment on above: Performed By: #### D ATCBC #### [facility] [address] [address] [address] Mayra Zuluaga MONO # 0.9 103/ul Critically high 0.3-0.8 [facility] Comment on above: Performed By: #### D ATCBC #### [facility] [address] [place] [address] Dr. Mayra Zuluaga Monocytes/100 WBC (Bld) 13.9 % Critically high 1.7-12.0 [facility] Comment on above: Performed By: #### D ATCBC #### [facility] [address] [place] [address] Dr. Mayra Zuluaga NEUT # 3.2 103/ul Normal 1.4-6.5 [facility] Comment on above: Performed By: #### D ATCBC #### [facility] [address] [place] [address] Dr. Mayra Zuluaga Neutrophils/100 WBC (Bld) 50.8 % Normal 43.0-75.0 [facility] Comment on above: Performed By: #### D ATCBC #### [facility] [address] [place] [address] Dr. Mayra Zuluaga Platelet mean volume (Bld) [Entitic vol] 9.5 fL Normal 9.5-13.5 [facility] Comment on above: Performed By: #### D ATCBC #### [facility] [address] [address] [address] Mayra Zuluaga PLT 215 103/ul Normal 150-450 [facility] Comment on above: Performed By: #### D ATCBC #### [facility] [address] [address] [address] Mayra Zuluaga RBC 4.84 106/ul Normal 4.70-6.10 [facility] Comment on above: Performed By: #### D ATCBC #### [facility] [address] [address] [address] Mayra Zuluaga WBC 6.3 103/ul Normal 4.0-11.0 [facility] Comment on above: Performed By: #### D ATCBC #### [facility] [address] [place] [address] Dr. Mayra Zuluaga AMINATA- BMP WITH LIPIDon 2022 Anion gap [Moles/Vol] 12.5 mmol/L Normal [facility] Comment on above: Performed By: #### D ATBMP, DATPSA #### [facility] [address] [place] [address] Dr. Mayra Zuluaga Calcium [Mass/Vol] 8.6 mg/dL Normal 8.5-10.1 [facility] Comment on above: Performed By: #### D ATBMP, DATPSA #### [facility] [address] [place] [address] Dr. Mayra Zuluaga Chloride [Moles/Vol] 103 mmol/L Normal 98-107 [facility] Comment on above: Performed By: #### D ATBMP, DATPSA #### [facility] [address] [place] [address] Dr. Mayra Zuluaga Cholesterol [Mass/Vol] 178 mg/dL Normal <=200 [facility] Comment on above: Performed By: #### D ATBMP, DATPSA #### [facility] [address] [place] [address] Dr. Mayra Zuluaga Cholesterol in HDL [Mass/Vol] 62 mg/dL Critically high 40-60 [facility] Comment on above: Performed By: #### D ATBMP, DATPSA #### [facility] [address] [address] [address] Mayra Zuluaga Cholesterol in LDL [Mass/Vol] 108.8 mg/dL Normal [facility] Comment on above: Performed By: #### D ATBMP, DATPSA #### [facility] [address] [place] [address] Dr. Mayra Zuluaga CO2 [Moles/Vol] 28.9 mmol/L Normal 21.0-32.0 [facility] Comment on above: Performed By: #### D ATBMP, DATPSA #### [facility] [address] [place] [address] Dr. Mayra Zuluaga Creatinine [Mass/Vol] 0.84 mg/dL Normal 0.70-1.30 [facility] Comment on above: Performed By: #### D ATBMP, DATPSA #### [facility] [address] [place] [address] Dr. Mayra Zuluaga EGFR-AF ALGERIAN >60 Normal >=60 [facility] Comment on above: Performed By: #### D ATBMP, DATPSA #### [facility] [address] [place] [address] Dr. Mayra Zuluaga EGFR-NON AF ALGERIAN >60 Normal >=60 [facility] Comment on above: Performed By: #### D ATBMP, DATPSA #### [facility] [address] [place] [address] Dr. Mayra Zuluaga Glucose [Mass/Vol] 114 mg/dL Critically high 74-106 T [facility] Comment on above: Performed By: #### D ATBMP, DATPSA #### [facility] [address] [place] [address] Dr. Mayra Zuluaga HDL NORMAL > or = 60 mg/dl - LO W CARDIOVASCULAR RISK <40 mg/dl - HIGH CARDIOVASCULAR RISK Normal [facility] Comment on above: Performed By: #### D ATBMP, DATPSA #### [facility] [address] [place] [address] Dr. Mayra Zuluaga LDL CALC NORMAL SEE BELOW Normal [facility] Comment on above: Result Comment: <100 mg/dl OPTIMAL 100 - 129 mg/dl NEAR OR ABOVE OPTIMAL 130 - 159 mg/dl BORDERLINE HIGH 160 - 189 mg/dl HIGH >190 mg/dl VERY HIGH Performed By: #### D ATBMP, DATPSA #### [facility] [address] [address] [address] Mayra Zuluaga Potassium [Moles/Vol] 4.4 mmol/L Normal 3.5-5.1 [facility] Comment on above: Performed By: #### D ATBMP, DATPSA #### [facility] [address] [address] [address] Mayra Zuluaga Sodium [Moles/Vol] 140 mmol/L Normal 136-145 [facility] Comment on above: Performed By: #### D ATBMP, DATPSA #### [facility] [address] [address] [address] Mayra Zuluaga Triglyceride [Mass/Vol] 36 mg/dL Normal <=150 [facility] Comment on above: Performed By: #### D ATBMP, DATPSA #### [facility] [address] [address] [address] Mayra Zuluaga Urea nitrogen [Mass/Vol] 12.0 mg/dL Normal 7.0-18.0 [facility] Comment on above: Performed By: #### D ATBMP, DATPSA #### [facility] [address] [address] [address] Mayra Zuluaga Urea nitrogen/Creatinine [Mass ratio] 14.3 mg/mg Normal [facility] Comment on above: Performed By: #### D ATBMP, DATPSA #### [facility] [address] [address] [address] Mayra Zuluaga VLDL CALC 7.2 mg/dL Normal [facility] Comment on above: Performed By: #### D ATBMP, DATPSA #### [facility] [address] [address] [address] Mayra Zuluaga Covid-19 PCR ([facility])on 06-30 SARS-CoV-2 (COVID-19) RNA DOROTHY+probe Ql (Unsp spec) Not detected Normal NOT DETECTED [facility] Comment on above: Result Comment: This test is not yet approved or cleared by the [place] FDA. When there are no FDA-approved or cleared tests available, and other criteria are met, FDA can make tests available under an emergency access mechanism called an Emergency Use Authorization (EUA). The EUA for this test is supported by the [place] of Health and Human Service's (HHS's) declaration [...] consistent with SARS-CoV-2. Performed By: #### [facility] #### [facility] [address] [place] [address] Dr. Mayra Zuluaga [facility] Surgical Pathology Depar tmenton 01-30-2022 [facility] Surgical Pathology Department Name MIGUEL BARON Pathologist: DOMINGA AGRAWAL DMD Date of Procedure: 01/30/2022 Date Received: 02/03/2022 Date Reported 02/06/2022 Submitting Physician: REMIGIO MENDOZA DDS Location: [facility] Other External # FINAL DIAGNOSIS A. RIGHT SOFT PALATAL MUCOSA, INCISIONAL BIOPSY: -- MILD EPITHELIAL DYSPLASIA (MULTIPLE LEVELS EXAMINED) ICD-10/CPT: [id number] Electronically Signed Out By DOMINGA AGRAWAL DMD/JONNATHAN [...] in toto in 1 cassette. AMANDEEP jlm/02/03/2022 [facility] Department of Pathology [address] [place] [address] Normal [facility] Comment on above: Performed By: #### U HCS #### [facility] Surgical Pathology Department [address] [place] [address] BASIC METABOLIC PANELon 12-31 Calcium [Mass/Vol] 9.6 mg/dL Normal 8.6-10.3 [facility] Comment on above: Performed By: #### 1 0054 #### [facility] [address] [place] [address], [facility] Chloride [Moles/Vol] 100 mmol/L Normal 98-107 [facility] Comment on above: Performed By: #### 1 0054 #### [facility] [address] [place] [address], [facility] CO2 [Moles/Vol] 25 mmol/L Normal 21-31 [facility] Comment on above: Performed By: #### 1 0054 #### [facility] [address] [place] [address], [facility] Creatinine [Mass/Vol] 0.62 mg/dL Low 0.70-1.30 [facility] Comment on above: Performed By: #### 1 0054 #### [facility] [address] [place] [address], [facility] GFR/1.73 sq M predicted among blacks MDRD (S/P/Bld) [Vol rate/Area] mL/min/{1.73_m2} Normal >60 [facility] Comment on above: Performed By: #### 1 0054 #### [facility] [address] [place] [address], [facility] GFR/1.73 sq M predicted among non-blacks MDRD (S/P/Bld) [Vol rate/Area] mL/min/{1.73_m2} Normal >60 [facility] Comment on above: Performed By: #### 1 0054 #### [facility] [address] [facility] [place] [address], [facility] Glucose [Mass/Vol] 97 mg/dL Normal 70-100 [facility] Comment on above: Performed By: #### 1 0054 #### [facility] [address] [facility] [place] [address], [facility] Potassium [Moles/Vol] 3.9 mmol/L Normal 3.5-5.1 [facility] Comment on above: Performed By: #### 1 0054 #### [facility] [address] [facility] [place] [address], [facility] Sodium [Moles/Vol] 131 mmol/L Low 136-145 [facility] Comment on above: Performed By: #### 1 0054 #### [facility] [address] [facility] [place] [id number], [facility] Urea nitrogen [Mass/Vol] 5 mg/dL Low 7-25 [facility] Comment on above: Performed By: #### 1 0054 #### [facility] [address] [place] [id number], [facility] CBC W/DIFFon 01-16-2020 ABS BASOPHILS 0.0 10*3/uL Normal 0.0-0.2 [facility] Comment on above: Performed By: #### 1 0054 #### [facility] [address] [place] [address], [facility] ABS IMM GRANS 0.0 10*3/uL Normal 0.0-0.2 [facility] Comment on above: Performed By: #### 1 0054 #### [facility] [address] [place] [address], [facility] ABS NEUTROPHILS 5.5 10*3/uL Normal 1.6-7.6 [facility] Comment on above: Performed By: #### 1 0054 #### [facility] [address] [place] [address], [facility] Basophils/100 WBC (Bld) 0.4 % Normal 0.0-1.0 [facility] Comment on above: Performed By: #### 1 0054 #### [facility] [address] [place] [address], [facility] Eosinophils (Bld) [#/Vol] 0.1 10*3/uL Normal 0.0-0.5 [facility] Comment on above: Performed By: #### 1 0054 #### [facility] [address] [place] [address], [facility] Eosinophils/100 WBC (Bld) 1.0 % Normal 0.0-6.0 [facility] Comment on above: Performed By: #### 1 0054 #### [facility] [address] Erythrocyte distribution width (RBC) [Ratio] 15.0 % Normal 11.5-15.0 [facility] Comment on above: Performed By: #### 1 0054 #### [facility] [address] [place] [address], [facility] Hematocrit (Bld) [Volume fraction] 41.1 % Normal 39.0-50.0 [facility] Comment on above: Performed By: #### 1 0054 #### [facility] [address] [facility] [place] [place] [address], [facility] Hemoglobin (Bld) [Mass/Vol] 13.2 g/dL Normal 13.0-17.0 [facility] Comment on above: Performed By: #### 1 0054 #### [facility] [address] [place] [address], [facility] IMMATURE GRANS 0.2 % Normal 0.0-1.0 [facility] Comment on above: Performed By: #### 1 0054 #### [facility] [address] Lymphocytes (Bld) [#/Vol] 3.1 10*3/uL Normal 1.2-4.0 [facility] Comment on above: Performed By: #### 1 0054 #### [facility] [address] Lymphocytes/100 WBC (Bld) 31.1 % Normal 20.0-45.0 [facility] Comment on above: Performed By: #### 1 0054 #### [facility] [address] MCH (RBC) [Entitic mass] 27.9 pg Normal 27.0-33.0 [facility] Comment on above: Performed By: #### 1 0054 #### [facility] [address] MCHC (RBC) [Mass/Vol] 32.1 g/dL Normal 32.0-35.0 [facility] Comment on above: Performed By: #### 1 0054 #### [facility] [address] [place] [address], [facility] MCV (RBC) [Entitic vol] 86.9 fL Normal 82.0-98.0 [facility] Comment on above: Performed By: #### 1 0054 #### [facility] [address] [place] [address], [facility] Monocytes (Bld) [#/Vol] 1.2 10*3/uL High 0.1-1.0 [facility] Comment on above: Performed By: #### 1 0054 #### [facility] [address] [place] [address], [facility] MONOS 11.7 % Normal 5.0-12.0 [facility] Comment on above: Performed By: #### 1 0054 #### [facility] [address] [facility] [place] [address], [facility] Neutrophils/100 WBC (Bld) 55.6 % Normal 40.0-72.0 [facility] Comment on above: Performed By: #### 1 4 #### [facility] [address] [facility] [place] [place] [address], [facility] Nucleated RBC/100 WBC (Bld) [Ratio] 0 % Normal 0-0 [facility] Comment on above: Performed By: #### 1 0054 #### [facility] [address] [facility] [place] [place] [address], [facility] PLAT CNT 296 10*3/uL Normal 150-400 [facility] Comment on above: Performed By: #### 1 0054 #### [facility] [address] [facility] [place] [place] [address], [facility] RBC (Bld) [#/Vol] 4.73 10*6/uL Normal 4.20-5.70 [facility] Comment on above: Performed By: #### 1 0054 #### [facility] [address] [facility] [place] [place] [address], [facility] WBC (Bld) [#/Vol] 9.81 10*3/uL Normal 4.00-10.60 [facility] Comment on above: Performed By: #### 1 0054 #### [address] ABDOMEN AND PELVIS W IV A ND ORAL CONTRASTon 01-16-2020 CT ABDOMEN AND PELVIS W IV AND ORAL CONTRAST [facility] Department of Radiology [address] [place] [id number] ======== Patient Name: MIGUEL BARON : 1960 Sex: M Age: Race: White Pt. Location: [facility] Patient Status: E Ordered Date: 01/16/2020 12:10:00 [...] achievable Electronically signed: Jennifer Cohen. Transcribed by: [email or web address], User Resident: Electronically Signed by: JENNIFER COHEN @ 01/16/2020 02:26 PM Normal [facility] Comment on above: Order Comment: No: D o not add to previous draw Coding Summaryon 12-08-2019 Coding Summary CODING DATE: 12/08/2019 [facility] STATUS: Home PAYOR: Commercial Insurance ADMIT [...] Hurtado Revised Date Saved: 11/22/2019 11:54 am [facility] Provider Orderson 11-18-2019 Provider Orders [id number] [id number] [facility] H&Hon 11-17-2019 Hematocrit (Bld) [Volume fraction] 28.7 % Low 34.8-51.9 [facility] Comment on above: Performed By: #### 5 [id number] #### [facility] (DEFAULT) [address] [place] [address] Hemoglobin (Bld) [Mass/Vol] 9.2 g/dL Low 11.8-17.7 [facility] Comment on above: Performed By: #### 5 [id number] #### [facility] (DEFAULT) [address] [place] [address] BASIC METABOLIC PANELon 12-0 Calcium [Mass/Vol] 7.3 mg/dL Low 8.6-10.3 [facility] Comment on above: Order Comment: No: D o not add to previous draw Performed By: #### 5 6101, 25283, 99521, 66908, 80881, 11627, 02632 #### [facility] [address] [place] [address], [facility] Chloride [Moles/Vol] 99 mmol/L Normal 98-107 [facility] Comment on above: Order Comment: No: D o not add to previous draw Performed By: #### 5 6101, 53388, 84523, 36659, 27235, 23824, 29512 #### [facility] [address] [place] [address], [place] CO2 [Moles/Vol] 27 mmol/L Normal 21-31 [facility] Comment on above: Order Comment: No: D o not add to previous draw Performed By: #### 5 6101, 55673, 53425, 34060, 32062, 78728, 14768 #### [facility] [address] [place] [address], [place] Creatinine [Mass/Vol] 0.38 mg/dL Low 0.70-1.30 [facility] Comment on above: Order Comment: No: D o not add to previous draw Performed By: #### 5 6101, 02736, 45708, 67408, 41658, 04599, 43342 #### [facility] [address] [place] [address], [place] GFR/1.73 sq M predicted among blacks MDRD (S/P/Bld) [Vol rate/Area] mL/min/{1.73_m2} Normal >60 [facility] Comment on above: Order Comment: No: D o not add to previous draw Performed By: #### 5 6101, 27080, 07393, 62230, 15333, 18656, 83060 #### [facility] [address] [place] [address], [place] GFR/1.73 sq M predicted among non-blacks MDRD (S/P/Bld) [Vol rate/Area] mL/min/{1.73_m2} Normal >60 [facility] Comment on above: Order Comment: No: D o not add to previous draw Performed By: #### 5 6101, 37383, 21243, 31128, 84072, 56437, 72911 #### [facility] [address] [place] [address], [place] Glucose [Mass/Vol] 95 mg/dL Normal 70-100 [facility] [place] Comment on above: Order Comment: No: D o not add to previous draw Performed By: #### 5 6101, 72633, 72561, 26128, 50828, 20362, 73425 #### [facility] [address] [place] [address], [place] Potassium [Moles/Vol] 3.7 mmol/L Normal 3.5-5.1 [facility] Comment on above: Order Comment: No: D o not add to previous draw Performed By: #### 5 6101, 89992, 73706, 28525, 56461, 75364, 82005 #### [facility] [address] [place] [address], [place] Sodium [Moles/Vol] 129 mmol/L Low 136-145 [facility] Comment on above: Order Comment: No: D o not add to previous draw Performed By: #### 5 6101, 14857, 81563, 41498, 98504, 74985, 38338 #### [facility] [address] [place] [address], [facility] Urea nitrogen [Mass/Vol] 5 mg/dL Low 7-25 [facility] Comment on above: Order Comment: No: D o not add to previous draw Performed By: #### 5 6101, 98816, 77088, 04849, 08642, 83698, 69478 #### [facility] [address] [place] [address], [facility] CBC COMPLETE BLOOD COUNTon 1 01-08-2019 Erythrocyte distribution width (RBC) [Ratio] 16.0 % High 11.5-15.0 [facility] Comment on above: Order Comment: No: D o not add to previous draw Performed By: #### 5 6101, 79467, 52538, 64190, 89948, 62218, 94227 #### [facility] [address] [place] [address], [facility] Hematocrit (Bld) [Volume fraction] 20.8 % Low 39.0-50.0 [facility] Comment on above: Order Comment: No: D o not add to previous draw Performed By: #### 5 6101, 84988, 01067, 33783, 16966, 98774, 30683 #### [facility] [address] [place] [address], [facility] Hemoglobin (Bld) [Mass/Vol] 6.9 g/dL Low 13.0-17.0 [facility] Comment on above: Order Comment: No: D o not add to previous draw Performed By: #### 5 6101, 26140, 47745, 57880, 46978, 07195, 34056 #### [facility] [address] [place] [address], [facility] MCH (RBC) [Entitic mass] 30.5 pg Normal 27.0-33.0 [facility] Comment on above: Order Comment: No: D o not add to previous draw Performed By: #### 5 6101, 32000, 95943, 68269, 69100, 75057, 39838 #### [facility] [address] [place] [id number], [facility] MCHC (RBC) [Mass/Vol] 33.2 g/dL Normal 32.0-35.0 [facility] Comment on above: Order Comment: No: D o not add to previous draw Performed By: #### 5 6101, 37209, 19616, 72500, 54631, 17290, 04066 #### [facility] [address] [place] [address], [facility] MCV (RBC) [Entitic vol] 92.0 fL Normal 82.0-98.0 [facility] Comment on above: Order Comment: No: D o not add to previous draw Performed By: #### 5 6101, 90292, 31442, 10449, 79227, 25146, 18061 #### [facility] [address] [address], [facility] Nucleated RBC/100 WBC (Bld) [Ratio] 0 % Normal 0-0 [facility] Comment on above: Order Comment: No: D o not add to previous draw Performed By: #### 5 6101, 24124, 56715, 16819, 70097, 20395, 43335 #### [facility] [address] [place] [id number], [facility] PLAT CNT 447 10*3/uL High 150-400 [facility] Comment on above: Order Comment: No: D o not add to previous draw Performed By: #### 5 6101, 16242, 26540, 43076, 97715, 30851, 46370 #### [facility] [address] [place] [id number], [place] RBC (Bld) [#/Vol] 2.26 10*6/uL Low 4.20-5.70 [facility] Comment on above: Order Comment: No: D o not add to previous draw Performed By: #### 5 6101, 28032, 76722, 12379, 27807, 35970, 46113 #### [facility] [address] WBC (Bld) [#/Vol] 13.25 10*3/uL High 4.00-10.60 [facility] Comment on above: Order Comment: No: D o not add to previous draw Performed By: #### 5 6101, 05255, 84966, 00391, 89340, 02944, 38900 #### [facility] [address] [facility]. [address] MAGNESIUM BLOODon 11-07-2019 Magnesium [Mass/Vol] 1.7 mg/dL Low 1.9-2.7 [facility] Comment on above: Order Comment: No: D o not add to previous draw Performed By: #### 1 0054 #### [facility] [address] [facility] [place] [address], [facility] RBC'S 1 UNITon 11-07-2019 CROSSMATCH INTERP 1 COMP Normal [facility] Comment on above: Performed By: #### 1 0054 #### [facility] [address] [facility]. [address] PRODUCT CODE 1 E0336 Normal [facility] Comment on above: Performed By: #### 1 0054 #### [facility] [address] [facility]. [address] PRODUCT STATUS 1 PT Normal [facility] Comment on above: Result Comment: Resu lt changed by IF on 11/07/2019 11:05. The previous value was XM. Result changed by IF on 11/08/2019 00:30. The previous value was IS. Performed By: #### 1 0054 #### [facility] [address] [place] [address], [facility] UNIT ABO 1 O Normal [facility] Comment on above: Performed By: #### 1 0054 #### [facility] [address] [place] [address], [facility] UNIT ID 1 [id number] Normal [facility] Comment on above: Performed By: #### 1 0054 #### [facility] [address] [place] [address], [facility] UNIT RH 1 Positive Normal [facility] Comment on above: Performed By: #### 1 0054 #### [facility] [address] [place] [address], [place] TYPE AND SCREENon 11-07-2019 ABO INTERPRETATION O Normal [facility] [place] Comment on above: Performed By: #### 1 0054 #### [facility] [address] [place] [address], [facility] RH INTERPRETATION Positive Normal [facility] Comment on above: Performed By: #### 1 0054 #### [facility] [address] [place] [address], [facility] CBC COMPLETE BLOOD COUNTon 1 01-07-2019 Erythrocyte distribution width (RBC) [Ratio] 15.9 % High 11.5-15.0 [facility] Comment on above: Order Comment: No: D o not add to previous draw Performed By: #### 5 6101, 81314, 14540, 27088, 07453, 68387, 69117 #### [facility] [address] [place] [address], [facility] Hematocrit (Bld) [Volume fraction] 21.3 % Low 39.0-50.0 [facility] Comment on above: Order Comment: No: D o not add to previous draw Performed By: #### 5 6101, 72349, 48406, 29917, 81655, 94304, 49509 #### [facility] [address] [place] [address], [facility] Hemoglobin (Bld) [Mass/Vol] 7.1 g/dL Low 13.0-17.0 [facility] Comment on above: Order Comment: No: D o not add to previous draw Performed By: #### 5 6101, 82235, 61185, 15240, 64235, 31059, 36451 #### [facility] [address] [place] [address], [facility] MCH (RBC) [Entitic mass] 30.7 pg Normal 27.0-33.0 [facility] Comment on above: Order Comment: No: D o not add to previous draw Performed By: #### 5 6101, 16375, 21763, 64572, 28569, 87873, 72321 #### [facility] [address] [place] [address], [facility] MCHC (RBC) [Mass/Vol] 33.3 g/dL Normal 32.0-35.0 [facility] Comment on above: Order Comment: No: D o not add to previous draw Performed By: #### 5 6101, 15406, 25486, 39259, 46543, 82881, 26103 #### [facility] [address] [place] [address], [facility] MCV (RBC) [Entitic vol] 92.2 fL Normal 82.0-98.0 [facility] Comment on above: Order Comment: No: D o not add to previous draw Performed By: #### 5 6101, 33001, 50104, 19001, 58417, 64989, 30511 #### [facility] [address] [place] [address], [facility] Nucleated RBC/100 WBC (Bld) [Ratio] 0 % Normal 0-0 [facility] Comment on above: Order Comment: No: D o not add to previous draw Performed By: #### 5 6101, 26697, 03298, 49941, 67206, 40055, 50909 #### [facility] [address] [place] [address], [facility] PLAT CNT 387 10*3/uL Normal 150-400 [facility] Comment on above: Order Comment: No: D o not add to previous draw Performed By: #### 5 6101, 29445, 63818, 47619, 94314, 57193, 05398 #### [facility] [address] [place] [address], [facility] RBC (Bld) [#/Vol] 2.31 10*6/uL Low 4.20-5.70 [facility] Comment on above: Order Comment: No: D o not add to previous draw Performed By: #### 5 6101, 40321, 49676, 85196, 63501, 30763, 06308 #### [facility] [address] [address], [facility] WBC (Bld) [#/Vol] 17.49 10*3/uL High 4.00-10.60 [facility] Comment on above: Order Comment: No: D o not add to previous draw Performed By: #### 5 6101, 12420, 47087, 24154, 27436, 91203, 02728 #### [facility] [address] [place] [address], [facility] COMP METABOLIC PANELon 11-06 Albumin [Mass/Vol] 2.0 g/dL Low 3.5-5.7 [facility] Comment on above: Order Comment: No: D o not add to previous draw Performed By: #### 5 6101, 14935, 64621, 09027, 81023, 57211, 03942 #### [facility] [address] [place] [address], [facility] ALKALINE PHOSPH 147 IU/L High 34-104 [facility] Comment on above: Order Comment: No: D o not add to previous draw Performed By: #### 5 6101, 70371, 40427, 46894, 68619, 59261, 68752 #### [facility] [address] [place] [address], [facility] ALT [Catalytic activity/Vol] 13 U/L Normal 7-52 [facility] Comment on above: Order Comment: No: D o not add to previous draw Performed By: #### 5 6101, 99226, 88398, 37853, 61716, 13461, 29872 #### [facility] [address] [place] [address], [facility] AST [Catalytic activity/Vol] 14 U/L Normal 13-39 [facility] Comment on above: Order Comment: No: D o not add to previous draw Performed By: #### 5 6101, 42850, 72670, 89935, 33593, 51442, 82287 #### [facility] [address] [place] [address], [place] Bilirubin [Mass/Vol] 1.3 mg/dL High 0.3-1.0 [facility] Comment on above: Order Comment: No: D o not add to previous draw Performed By: #### 5 6101, 56089, 90982, 56754, 92138, 44374, 98999 #### [facility] [address] [place] [address], [place] Calcium [Mass/Vol] 7.5 mg/dL Low 8.6-10.3 [facility] Comment on above: Order Comment: No: D o not add to previous draw Performed By: #### 5 6101, 84200, 57724, 62397, 37252, 65592, 50423 #### [facility] [address] [place] [address], [place] Chloride [Moles/Vol] 99 mmol/L Normal 98-107 [facility] Comment on above: Order Comment: No: D o not add to previous draw Performed By: #### 5 6101, 00330, 68613, 27996, 26988, 14016, 87435 #### [facility] [address] [place] [address], [facility] CO2 [Moles/Vol] 26 mmol/L Normal 21-31 [facility] Comment on above: Order Comment: No: D o not add to previous draw Performed By: #### 5 6101, 83879, 83080, 93503, 58088, 08825, 71337 #### [facility] [address] [place] [address], [facility] Creatinine [Mass/Vol] 0.40 mg/dL Low 0.70-1.30 [facility] Comment on above: Order Comment: No: D o not add to previous draw Performed By: #### 5 6101, 07638, 12179, 73614, 77168, 07589, 19303 #### [facility] [address] [place] [address], [facility] GFR/1.73 sq M predicted among blacks MDRD (S/P/Bld) [Vol rate/Area] mL/min/{1.73_m2} Normal >60 [facility] Comment on above: Order Comment: No: D o not add to previous draw Performed By: #### 5 6101, 02577, 43630, 17137, 59355, 94973, 65249 #### [facility] [address] [place] [address], [facility] GFR/1.73 sq M predicted among non-blacks MDRD (S/P/Bld) [Vol rate/Area] mL/min/{1.73_m2} Normal >60 [facility] Comment on above: Order Comment: No: D o not add to previous draw Performed By: #### 5 6101, 99232, 75560, 99721, 98325, 32687, 22261 #### [facility] [address] [place] [address], [place] Glucose [Mass/Vol] 86 mg/dL Normal 70-100 [facility] [place] Comment on above: Order Comment: No: D o not add to previous draw Performed By: #### 5 6101, 07866, 52328, 87424, 02830, 64787, 13828 #### [facility] [address] [place] [address], [place] Potassium [Moles/Vol] 4.0 mmol/L Normal 3.5-5.1 [facility] Comment on above: Order Comment: No: D o not add to previous draw Performed By: #### 5 6101, 43464, 29449, 65885, 72005, 86872, 96509 #### [facility] [address] [place] [address], [place] Protein [Mass/Vol] 4.8 g/dL Low 6.0-8.3 [facility] [place] Comment on above: Order Comment: No: D o not add to previous draw Performed By: #### 5 6101, 68611, 55211, 79060, 39017, 94774, 41986 #### [facility] [address] [place] [address], [place] Sodium [Moles/Vol] 130 mmol/L Low 136-145 [facility] [place] Comment on above: Order Comment: No: D o not add to previous draw Performed By: #### 5 6101, 71966, 57451, 75564, 99298, 30436, 35801 #### [facility] [address] [place] [address], [place] Urea nitrogen [Mass/Vol] 5 mg/dL Low 7-25 [facility] Comment on above: Order Comment: No: D o not add to previous draw Performed By: #### 5 6101, 68809, 19441, 92289, 22517, 91332, 61061 #### [facility] [address] MAGNESIUM BLOODon 11-06-2019 Magnesium [Mass/Vol] 1.8 mg/dL Low 1.9-2.7 [facility] Comment on above: Order Comment: No: D o not add to previous draw Performed By: #### 5 6101, 50485, 17114, 36761, 86580, 93031, 43766 #### [facility] [address] *C DIFF DNA AMPLIFICATIONon 11-05-2019 *C DIFF DNA AMPLIFICATION Clinical Report: (D) Specimen: STOOL Collected: 11/05/2019 15:19 Status: Final Last Updated: 11/05/2019 16:45 (1) No: Do not add to previous draw CDT DNA: (Final) Negative Normal [facility] Comment on above: Order Comment: No: D o not add to previous draw Performed By: #### 5 6101, 82616, 94306, 10229, 21753, 46688, 14977 #### [facility] [address] *WOUND CULTUREon 11-05-2019 *WOUND CULTURE Clinical [...] <=1 Susceptible CEFAZOLIN (CZ) <=1 Susceptible CEFTRIAXONE (PC SUPPORT SPECIALIST) <=0.5 Susceptible CIPROFLOXACIN (CIP) <=0.5 Susceptible ESBL (-/+) (ESBL) Negative GENTAMICIN (GM) <=1 Susceptible PIP/TAZO (TZP) <=2/4 Susceptible TOBRAMYCIN (TOB) 1 Susceptible TRIMETH/SULFA (SXT) <=0.5/9.5 Susceptible Normal [facility] Comment on above: Order Comment: No: D o not add to previous draw Performed By: #### 5 6101, 76639, 59044, 61456, 66096, 48726, 55006 #### [facility] [address] [place] [address], [facility] BASIC METABOLIC PANELon 12-0 Calcium [Mass/Vol] 7.6 mg/dL Low 8.6-10.3 [facility] Comment on above: Order Comment: No: D o not add to previous draw Performed By: #### 5 6101, 95991, 01165, 79042, 48776, 34111, 70505 #### [facility] [address] [place] [address], [facility] Chloride [Moles/Vol] 97 mmol/L Low 98-107 [facility] Comment on above: Order Comment: No: D o not add to previous draw Performed By: #### 5 6101, 28834, 74535, 96349, 41136, 22539, 43092 #### [facility] [address] [place] [address], [facility] CO2 [Moles/Vol] 26 mmol/L Normal 21-31 [facility] Comment on above: Order Comment: No: D o not add to previous draw Performed By: #### 5 6101, 34199, 87677, 31030, 24542, 23455, 79430 #### [facility] [address] [place] [address], [place] Creatinine [Mass/Vol] 0.35 mg/dL Low 0.70-1.30 [facility] Comment on above: Order Comment: No: D o not add to previous draw Performed By: #### 5 6101, 70373, 82337, 54490, 73324, 84300, 56267 #### [facility] [address] [place] [id number], [facility] GFR/1.73 sq M predicted among blacks MDRD (S/P/Bld) [Vol rate/Area] mL/min/{1.73_m2} Normal >60 [facility] Comment on above: Order Comment: No: D o not add to previous draw Performed By: #### 5 6101, 85048, 00459, 64739, 58693, 69721, 55969 #### [facility] [address] [place] [address], [facility] GFR/1.73 sq M predicted among non-blacks MDRD (S/P/Bld) [Vol rate/Area] mL/min/{1.73_m2} Normal >60 [facility] Comment on above: Order Comment: No: D o not add to previous draw Performed By: #### 5 6101, 44683, 18959, 87430, 56277, 42799, 58347 #### [facility] [address] [place] [id number], [facility] Glucose [Mass/Vol] 98 mg/dL Normal 70-100 [facility] [place] Comment on above: Order Comment: No: D o not add to previous draw Performed By: #### 5 6101, 99209, 62034, 39574, 29445, 28029, 42138 #### [facility] [address] [place] [address], [facility] Potassium [Moles/Vol] 3.8 mmol/L Normal 3.5-5.1 [facility] Comment on above: Order Comment: No: D o not add to previous draw Performed By: #### 5 6101, 97294, 90690, 81491, 61355, 26696, 26679 #### [facility] [address] [place] [address], [place] Sodium [Moles/Vol] 129 mmol/L Low 136-145 [facility] [place] Comment on above: Order Comment: No: D o not add to previous draw Performed By: #### 5 6101, 91290, 24710, 97353, 36788, 92230, 96132 #### [facility] [address] Urea nitrogen [Mass/Vol] 5 mg/dL Low 7-25 [facility] Comment on above: Order Comment: No: D o not add to previous draw Performed By: #### 5 6101, 49639, 72626, 61830, 16656, 78526, 11937 #### [facility] [address] CBC COMPLETE BLOOD COUNTon 01-06-2019 Erythrocyte distribution width (RBC) [Ratio] 15.5 % High 11.5-15.0 [facility] Comment on above: Order Comment: No: D o not add to previous draw Performed By: #### 5 6101, 44241, 59347, 03170, 22158, 92783, 44751 #### [facility] [address] Hematocrit (Bld) [Volume fraction] 22.4 % Low 39.0-50.0 [facility] Comment on above: Order Comment: No: D o not add to previous draw Performed By: #### 5 6101, 53822, 36626, 54596, 18221, 07211, 90221 #### [facility] [address] Hemoglobin (Bld) [Mass/Vol] 7.5 g/dL Low 13.0-17.0 [facility] Comment on above: Order Comment: No: D o not add to previous draw Performed By: #### 5 6101, 84493, 71637, 71685, 65535, 19643, 03888 #### [facility] [address] [place] [address], [facility] MCH (RBC) [Entitic mass] 31.0 pg Normal 27.0-33.0 [facility] Comment on above: Order Comment: No: D o not add to previous draw Performed By: #### 5 6101, 97694, 50661, 93888, 33389, 56121, 23632 #### [facility] [address] MCHC (RBC) [Mass/Vol] 33.5 g/dL Normal 32.0-35.0 [facility] Comment on above: Order Comment: No: D o not add to previous draw Performed By: #### 5 6101, 97290, 07256, 94258, 93298, 69661, 05817 #### [facility] [address] MCV (RBC) [Entitic vol] 92.6 fL Normal 82.0-98.0 [facility] Comment on above: Order Comment: No: D o not add to previous draw Performed By: #### 5 6101, 00078, 31266, 98501, 96482, 74460, 12626 #### [facility] [address] Nucleated RBC/100 WBC (Bld) [Ratio] 0 % Normal 0-0 [facility] Comment on above: Order Comment: No: D o not add to previous draw Performed By: #### 5 6101, 59108, 39285, 64998, 21788, 00473, 34961 #### [facility] [address] [place] [address], [facility] PLAT CNT 350 10*3/uL Normal 150-400 [facility] Comment on above: Order Comment: No: D o not add to previous draw Performed By: #### 5 6101, 92962, 91961, 97237, 76661, 58948, 76834 #### [facility] [address] [place] [address], [facility] RBC (Bld) [#/Vol] 2.42 10*6/uL Low 4.20-5.70 [facility] Comment on above: Order Comment: No: D o not add to previous draw Performed By: #### 5 6101, 93317, 06023, 05976, 55462, 76740, 77146 #### [facility] [address] WBC (Bld) [#/Vol] 20.11 10*3/uL High 4.00-10.60 [facility] Comment on above: Order Comment: No: D o not add to previous draw Performed By: #### 5 6101, 46570, 77225, 87484, 19852, 69132, 68397 #### [facility] [address] [place], [place] [address] [place] [address] CHEST AND LATERALon 11-05-20 CHEST AND LATERAL [facility] Department of Radiology [address] [place] [address] ======== Patient Name: MIGUEL BARON : 1960 Sex: M Age: Race: White Pt. Location: [address] [place] [address] Patient Status: I Ordered Date: 11/04/2019 1:35:00 PM Completed Date: 11/05/2019 12:40 PM Requesting Provider: AHILE WILLOUGHBY Attending Provider: PEBBLES BUSCH Report Copy [...] findings. Electronically signed by:Ramandeep Mai. Transcribed by: [email or web address], User Resident: JACINTO JONES Electronically Signed by: RAMANDEEP MAI @ 11/07/2019 09:28 AM I personally read this/these film(s) with this resident Normal [facility] Comment on above: Order Comment: No: D o not add to previous draw CT ABDOMEN AND PELVIS W IV C ONTRASTon 11-05-2019 CT ABDOMEN AND PELVIS W IV CONTRAST [facility] Department of Radiology [address] [place] [id number] ======== Patient Name: MIGUEL BARON : 1960 Sex: M Age: Race: White Pt. Location: [id number] Patient Status: I Ordered Date: 11/05/2019 2:25:00 [...] findings. Electronically signed by:Ramandeep Mai. Transcribed by: [email or web address], User Resident: JACINTO JONES Electronically Signed by: RAMANDEEP MAI @ 11/06/2019 08:15 AM I personally read this/these film(s) with this resident Normal [facility] Comment on above: Order Comment: Other , r/o intra-abdominal abscess/fluid collection MAGNESIUM BLOODon 11-05-2019 Magnesium [Mass/Vol] 1.9 mg/dL Normal 1.9-2.7 [facility] Comment on above: Order Comment: No: D o not add to previous drawPt using restroom. Performed By: #### 5 6101, 56982, 46407, 60303, 17432, 41028, 65108 #### [facility] [address] [place] [address], [facility] URINALYSIS REFLEXon 11-05-20 19 Appearance (U) SL CLOUDY Abnormal CLEAR [facility] Comment on above: Order Comment: No: D o not add to previous drawCriteria for reflexing a culture was not met. Please call the lab [id number] within 24 hours of collection time if culture is needed Performed By: #### 5 6101, 65083, 85300, 71417, 13544, 84310, 63431 #### [facility] [address] [place] [address], [facility] Bilirubin [Mass/Vol] Negative Normal NEGATIVE [facility] Comment on above: Order Comment: No: D o not add to previous drawCriteria for reflexing a culture was not met. Please call the lab [id number] within 24 hours of collection time if culture is needed Performed By: #### 5 6101, 91407, 53437, 23134, 67895, 06440, 60613 #### [facility] [address] [place] [address], [facility] BLOOD Negative Normal NEGATIVE [facility] Comment on above: Order Comment: No: D o not add to previous drawCriteria for reflexing a culture was not met. Please call the lab [id number] within 24 hours of collection time if culture is needed Performed By: #### 5 6101, 16629, 30171, 71319, 70061, 53688, 27924 #### [facility] [address] [place] [address], [facility] Color (U) BELLA Abnormal YELLOW [facility] Comment on above: Order Comment: No: D o not add to previous drawCriteria for reflexing a culture was not met. Please call the lab [id number] within 24 hours of collection time if culture is needed Performed By: #### 5 6101, 53254, 19027, 45428, 49016, 44549, 21625 #### [facility] [address] [place] [address], [facility] EPIS NONE SEEN Normal FEW,OCC,NONE SEEN [facility] Comment on above: Order Comment: No: D o not add to previous drawCriteria for reflexing a culture was not met. Please call the lab [id number] within 24 hours of collection time if culture is needed Performed By: #### 5 6101, 61925, 31999, 03445, 97400, 16454, 61888 #### [facility] [address] [place] [address], [place] Glucose [Mass/Vol] Negative Normal NEGATIVE [facility] Comment on above: Order Comment: No: D o not add to previous drawCriteria for reflexing a culture was not met. Please call the lab [id number] within 24 hours of collection time if culture is needed Performed By: #### 5 6101, 51341, 21242, 61876, 60005, 05691, 90710 #### [facility] [address] [place] [address], [facility] KETONE Negative Normal NEGATIVE [facility] Comment on above: Order Comment: No: D o not add to previous drawCriteria for reflexing a culture was not met. Please call the lab [email or web address] within 24 hours of collection time if culture is needed Performed By: #### 5 6101, 88946, 53396, 54271, 97701, 88105, 20476 #### [facility] [address] [facility] [place] [address], [facility] LEUK ODALIS Negative Normal NEGATIVE [facility] Comment on above: Order Comment: No: D o not add to previous drawCriteria for reflexing a culture was not met. Please call the lab [id number] within 24 hours of collection time if culture is needed Performed By: #### 5 6101, 32408, 44292, 17513, 89700, 82123, 04351 #### [facility] [address] [facility] [place] [address], [facility] MUCUS THREADS MANY Abnormal NONE SEEN The [facility] Comment on above: Order Comment: No: D o not add to previous drawCriteria for reflexing a culture was not met. Please call the lab [id number] within 24 hours of collection time if culture is needed Performed By: #### 5 6101, 44461, 02860, 17715, 59456, 45927, 29287 #### [facility] [address] [place] [address], [facility] Nitrite Ql (U) Negative Normal NEGATIVE [facility] Comment on above: Order Comment: No: D o not add to previous drawCriteria for reflexing a culture was not met. Please call the lab [id number] within 24 hours of collection time if culture is needed Performed By: #### 5 6101, 22313, 49957, 76003, 96210, 43202, 48676 #### [facility] [address] [facility] [place] [address], [facility] pH (Bld) 6.0 Normal 5.0-8.0 [facility] Comment on above: Order Comment: No: D o not add to previous drawCriteria for reflexing a culture was not met. Please call the lab [id number] within 24 hours of collection time if culture is needed Performed By: #### 5 6101, 67640, 34255, 28651, 98995, 16235, 97329 #### [facility] [address] [facility] [place] [address], [facility] Protein (U) [Mass/Vol] Negative Normal NEGATIVE [facility] Comment on above: Order Comment: No: D o not add to previous drawCriteria for reflexing a culture was not met. Please call the lab [id number] within 24 hours of collection time if culture is needed Performed By: #### 5 6101, 77628, 27521, 34883, 05145, 81815, 71805 #### [facility] [address] [facility] [place] [address], [facility] RBC (U) [#/Vol] NONE SEEN Normal NONE SEEN [facility] Comment on above: Order Comment: No: D o not add to previous drawCriteria for reflexing a culture was not met. Please call the lab [id number] within 24 hours of collection time if culture is needed Performed By: #### 5 6101, 64212, 72777, 49005, 93339, 85159, 80544 #### [facility] [address] [facility] [place] [address], [facility] SPEC GRAV 1.016 Normal 1.015-1.020 [facility] Comment on above: Order Comment: No: D o not add to previous drawCriteria for reflexing a culture was not met. Please call the lab [id number] within 24 hours of collection time if culture is needed Performed By: #### 5 6101, 13990, 45220, 72264, 13412, 92613, 26075 #### [facility] [address] [facility]. [address] WBC UA 0-2 Abnormal NONE SEEN [facility] Comment on above: Order Comment: No: D o not add to previous drawCriteria for reflexing a culture was not met. Please call the lab [id number] within 24 hours of collection time if culture is needed Performed By: #### 5 6101, 85401, 24683, 50635, 60398, 58494, 24893 #### [facility] [address] [facility]. [address] *BLOOD CULTUREon 11-04-2019 Bacteria identified Cx Nom (Bld) Clinical Report: (D) Specimen: BLOOD CULTURE Collected: 11/04/2019 13:45 Status: Final Last Updated: 11/10/2019 07:39 CULT RES (Final) No Growth Day 5 Normal [facility] Comment on above: Performed By: #### 5 6101, 37514, 46673, 28042, 52253, 23502, 35762 #### [facility] [address] [facility]. [address] CBC W/DIFFon 11-04-2019 ABS BASOPHILS 0.0 10*3/uL Normal 0.0-0.2 [facility] Comment on above: Performed By: #### 5 6101, 24159, 65314, 53400, 40465, 56970, 73708 #### [facility] [address] [facility] [place] [address], [facility] ABS NEUTROPHILS 16.3 10*3/uL High 1.6-7.6 [facility] Comment on above: Performed By: #### 5 6101, 25026, 80268, 81769, 81613, 10259, 86944 #### [facility] [address] [facility] [place] [address], [facility] ANISO Moderate Normal [facility] Comment on above: Performed By: #### 5 6101, 95990, 49750, 49634, 96217, 16818, 42026 #### [facility] [address] [place] [address], [facility] Basophils/100 WBC (Bld) 0.0 % Normal 0.0-1.0 [facility] Comment on above: Performed By: #### 5 6101, 79890, 43773, 15867, 62115, 30581, 05938 #### [facility] [address] [place] [address], [facility] DOHLE BODIES Slight Normal [facility] Comment on above: Performed By: #### 5 6101, 64853, 17870, 34997, 20003, 25190, 37023 #### [facility] [address] [facility]. [address] Eosinophils (Bld) [#/Vol] 0.0 10*3/uL Normal 0.0-0.5 [facility] Comment on above: Performed By: #### 5 6101, 91017, 39976, 48985, 64930, 21746, 17247 #### [facility] [address] [facility] [place] [address], [facility] Eosinophils/100 WBC (Bld) 0.0 % Normal 0.0-6.0 [facility] Comment on above: Performed By: #### 5 6101, 40858, 95932, 53397, 26167, 43289, 71326 #### [facility] [address] [facility]. [address] Erythrocyte distribution width (RBC) [Ratio] 15.6 % High 11.5-15.0 [facility] Comment on above: Performed By: #### 5 6101, 99992, 02672, 65989, 52277, 88088, 78366 #### [facility] [address] [facility] [place] [address], [facility] GIANT PLATELETS Present Normal [facility] Comment on above: Performed By: #### 5 6101, 91607, 93293, 63190, 14806, 73836, 62963 #### [facility] [address] [place] [address], [facility] Hematocrit (Bld) [Volume fraction] 21.1 % Low 39.0-50.0 [facility] Comment on above: Performed By: #### 5 6101, 17241, 83119, 77169, 69568, 61828, 36649 #### [facility] [address] [place] [address], [facility] Hemoglobin (Bld) [Mass/Vol] 7.1 g/dL Low 13.0-17.0 [facility] Comment on above: Performed By: #### 5 6101, 66943, 12546, 45666, 57328, 81565, 55388 #### [facility] [address] [address], [facility] Lymphocytes (Bld) [#/Vol] 0.5 10*3/uL Low 1.2-4.0 [facility] Comment on above: Performed By: #### 5 6101, 50988, 19378, 95388, 54930, 94020, 82792 #### [facility] [address] [facility] [place] [address], [facility] Lymphocytes/100 WBC (Bld) 2.7 % Low 20.0-45.0 [facility] Comment on above: Performed By: #### 5 6101, 80119, 92250, 39510, 33317, 67689, 97990 #### [facility] [address] [place] [address], [facility] MCH (RBC) [Entitic mass] 30.9 pg Normal 27.0-33.0 [facility] Comment on above: Performed By: #### 5 6101, 32692, 35503, 67282, 04582, 73468, 03447 #### [facility] [address] MCHC (RBC) [Mass/Vol] 33.6 g/dL Normal 32.0-35.0 [facility] Comment on above: Performed By: #### 5 6101, 26581, 17040, 23793, 12153, 99375, 94295 #### [facility] [address] [facility] [place] [address], [facility] MCV (RBC) [Entitic vol] 91.7 fL Normal 82.0-98.0 [facility] Comment on above: Performed By: #### 5 6101, 05147, 88714, 20523, 24816, 57952, 17381 #### [facility] [address] Monocytes (Bld) [#/Vol] 1.9 10*3/uL High 0.1-1.0 [facility] Comment on above: Performed By: #### 5 6101, 77717, 31276, 80447, 18730, 12787, 17470 #### [facility] [address] [facility]. [address] MONOS 10.1 % Normal 5.0-12.0 [facility] Comment on above: Performed By: #### 5 6101, 80232, 60683, 53768, 54806, 18336, 06159 #### [facility] [address] [facility] [place] [address], [facility] Neutrophils/100 WBC (Bld) 87.2 % High 40.0-72.0 [facility] Comment on above: Performed By: #### 5 6101, 59343, 08885, 04348, 73272, 78669, 63022 #### [facility] [address] [place] [address], [facility] Nucleated RBC/100 WBC (Bld) [Ratio] 0 % Normal 0-0 [facility] Comment on above: Performed By: #### 5 6101, 47737, 50699, 77153, 43642, 61077, 80584 #### [facility] [address] PLAT CNT 304 10*3/uL Normal 150-400 [facility] Comment on above: Performed By: #### 5 6101, 26974, 72616, 17718, 50704, 41970, 60469 #### [facility] [address] [facility] [facility] [facility] POIK Moderate Normal [facility] Comment on above: Performed By: #### 5 6101, 07380, 67286, 73984, 59190, 28569, 01073 #### [facility] [address] [facility] [address] POLY Slight Normal [facility] Comment on above: Performed By: #### 5 6101, 17321, 53688, 73551, 04266, 72292, 92183 #### [facility] [address] [facility] [address] RBC (Bld) [#/Vol] 2.30 10*6/uL Low 4.20-5.70 [facility] Comment on above: Performed By: #### 5 6101, 82546, 32674, 90354, 11317, 71827, 79384 #### [facility] [address] [facility] [address] T[employer] CELLS Moderate Normal [facility] Comment on above: Performed By: #### 5 6101, 44012, 48136, 12602, 24342, 29189, 53686 #### [facility] [address] [facility] [address] TOXIC GRANULATION Moderate Normal [facility] Comment on above: Performed By: #### 5 6101, 79289, 89086, 07447, 09833, 69453, 02660 #### [facility] [address] [place] [address], [facility] WBC (Bld) [#/Vol] 18.67 10*3/uL High 4.00-10.60 [facility] Comment on above: Performed By: #### 5 6101, 04782, 54129, 17488, 69690, 50653, 10579 #### [facility] [address] [place] [address], [facility] COMP METABOLIC PANELon 11-04 Albumin [Mass/Vol] 2.1 g/dL Low 3.5-5.7 [facility] Comment on above: Order Comment: No: D o not add to previous draw Performed By: #### 5 6101, 72099, 27792, 34070, 96667, 04661, 81343 #### [facility] [address] ALKALINE PHOSPH 153 IU/L High 34-104 [facility] Comment on above: Order Comment: No: D o not add to previous draw Performed By: #### 5 6101, 53555, 90805, 48671, 62165, 45109, 31780 #### [facility] [address] [place] [address], [facility] ALT [Catalytic activity/Vol] 16 U/L Normal 7-52 [facility] Comment on above: Order Comment: No: D o not add to previous draw Performed By: #### 5 6101, 76627, 62329, 02139, 58674, 40285, 48456 #### [facility] [address] [place] [address], [facility] AST [Catalytic activity/Vol] 14 U/L Normal 13-39 [facility] Comment on above: Order Comment: No: D o not add to previous draw Performed By: #### 5 6101, 13848, 60735, 67654, 77444, 84847, 04159 #### [facility] [address] [place] [address], [place] Bilirubin [Mass/Vol] 1.6 mg/dL High 0.3-1.0 [facility] Comment on above: Order Comment: No: D o not add to previous draw Performed By: #### 5 6101, 08976, 89712, 04176, 97654, 54465, 06015 #### [facility] [address] [place] [address], [place] Calcium [Mass/Vol] 7.5 mg/dL Low 8.6-10.3 [facility] Comment on above: Order Comment: No: D o not add to previous draw Performed By: #### 5 6101, 36899, 59368, 20492, 88057, 43889, 57310 #### [facility] [address] [place] [address], [place] Chloride [Moles/Vol] 97 mmol/L Low 98-107 [facility] Comment on above: Order Comment: No: D o not add to previous draw Performed By: #### 5 6101, 31079, 64574, 39840, 97270, 37540, 97030 #### [facility] [address] [place] [address], [place] CO2 [Moles/Vol] 26 mmol/L Normal 21-31 [facility] Comment on above: Order Comment: No: D o not add to previous draw Performed By: #### 5 6101, 99450, 25234, 21720, 76188, 20650, 58588 #### [facility] [address] [place] [address], [place] Creatinine [Mass/Vol] 0.40 mg/dL Low 0.70-1.30 [facility] Comment on above: Order Comment: No: D o not add to previous draw Performed By: #### 5 6101, 13794, 28054, 26677, 31112, 93772, 63013 #### [facility] [address] [place] [address], [facility] GFR/1.73 sq M predicted among blacks MDRD (S/P/Bld) [Vol rate/Area] mL/min/{1.73_m2} Normal >60 [facility] Comment on above: Order Comment: No: D o not add to previous draw Performed By: #### 5 6101, 27858, 74006, 64949, 33111, 08193, 88454 #### [facility] [address] [place] [address], [facility] GFR/1.73 sq M predicted among non-blacks MDRD (S/P/Bld) [Vol rate/Area] mL/min/{1.73_m2} Normal >60 [facility] Comment on above: Order Comment: No: D o not add to previous draw Performed By: #### 5 6101, 01350, 73598, 86533, 58934, 12674, 90287 #### [facility] [address] [place] [address], [place] Glucose [Mass/Vol] 88 mg/dL Normal 70-100 [facility] [place] Comment on above: Order Comment: No: D o not add to previous draw Performed By: #### 5 6101, 85820, 63079, 31278, 44095, 67937, 24312 #### [facility] [address] [place] [address], [place] Potassium [Moles/Vol] 4.0 mmol/L Normal 3.5-5.1 [facility] Comment on above: Order Comment: No: D o not add to previous draw Performed By: #### 5 6101, 92751, 32323, 04220, 74317, 34751, 53782 #### [facility] [address] [place] [address], [place] Protein [Mass/Vol] 4.8 g/dL Low 6.0-8.3 [facility] Comment on above: Order Comment: No: D o not add to previous draw Performed By: #### 5 6101, 88495, 69486, 66541, 69150, 33322, 77648 #### [facility] [address] [place] [address], [facility] Sodium [Moles/Vol] 128 mmol/L Low 136-145 [facility] Comment on above: Order Comment: No: D o not add to previous draw Performed By: #### 5 6101, 79752, 40048, 87325, 24276, 25654, 10353 #### [facility] [address] [place] [address], [facility] Urea nitrogen [Mass/Vol] 5 mg/dL Low 7-25 [facility] Comment on above: Order Comment: No: D o not add to previous draw Performed By: #### 5 6101, 96283, 17123, 34486, 15707, 98637, 29575 #### [facility] [address] [place] [address], [facility] MAGNESIUM BLOODon 11-04-2019 Magnesium [Mass/Vol] 1.7 mg/dL Low 1.9-2.7 [facility] Comment on above: Order Comment: No: D o not add to previous draw Performed By: #### 5 6101, 07958, 00215, 15107, 92961, 98063, 93815 #### [facility] [address] [place] [address], [facility] PHOSPHORUS BLOODon 9 Phosphate [Mass/Vol] 2.7 mg/dL Normal 2.5-5.0 [facility] Comment on above: Order Comment: No: D o not add to previous draw Performed By: #### 5 6101, 51109, 85650, 55300, 91003, 22752, 00417 #### [facility] [address] [place] [address], [facility] UFH HEPARIN ASSAYon 11-04-20 19 UNFRACTIONATED HEPARIN <0.10 Critically low 0.30-0.70 [facility] Comment on above: Result Comment: [place] roxaban and Apixaban will interfere with the anti Xa assay used to monitor UFH and LMWH. RESULTS CHECKED AND CALLED. ACCURATELY READ BACK BY MATTHEW MORRISON RN AT 08:02 RN STATES PATIENT IS STILL ON HEPARIN DRIP. Performed By: #### 5 6101, 15992, 21608, 07159, 47516, 23888, 92705 #### [facility] [address] UNFRACTIONATED HEPARIN 0.26 IU/mL Low 0.30-0.70 [facility] Comment on above: Result Comment: [place] roxaban and Apixaban will interfere with the anti Xa assay used to monitor UFH and LMWH. Performed By: #### 5 6101, 66660, 11562, 97241, 05684, 90141, 66628 #### [facility] [address] APTTon 11-03-2019 aPTT Coag (Bld) [Time] 161.0 s Critically high 25.0-35.0 [facility] Comment on above: Order Comment: No: [...] AT 10:25 Performed By: #### 5 6101, 88394, 02757, 16246, 12577, 70175, 56298 #### [facility] [address] [place] [address], [facility] BASIC METABOLIC PANELon Calcium [Mass/Vol] 7.5 mg/dL Low 8.6-10.3 [facility] Comment on above: Order Comment: No: D o not add to previous draw Performed By: #### 5 6101, 04657, 65447, 66782, 48683, 22411, 75566 #### [facility] [address] [place] [address], [facility] Chloride [Moles/Vol] 96 mmol/L Low 98-107 [facility] Comment on above: Order Comment: No: D o not add to previous draw Performed By: #### 5 6101, 29289, 80200, 49323, 34882, 44859, 54634 #### [facility] [address] [place] [address], [facility] CO2 [Moles/Vol] 29 mmol/L Normal 21-31 [facility] Comment on above: Order Comment: No: D o not add to previous draw Performed By: #### 5 6101, 97283, 13296, 40578, 89161, 25835, 66636 #### [facility] [address] [place] [address], [facility] Creatinine [Mass/Vol] 0.41 mg/dL Low 0.70-1.30 [facility] Comment on above: Order Comment: No: D o not add to previous draw Performed By: #### 5 6101, 48628, 50192, 30355, 32195, 04942, 18695 #### [facility] [address] [place] [address], [place] GFR/1.73 sq M predicted among blacks MDRD (S/P/Bld) [Vol rate/Area] mL/min/{1.73_m2} Normal >60 [facility] Comment on above: Order Comment: No: D o not add to previous draw Performed By: #### 5 6101, 32700, 17224, 05532, 25832, 03715, 41914 #### [facility] [address] [place] [address], [facility] GFR/1.73 sq M predicted among non-blacks MDRD (S/P/Bld) [Vol rate/Area] mL/min/{1.73_m2} Normal >60 [facility] Comment on above: Order Comment: No: D o not add to previous draw Performed By: #### 5 6101, 87871, 90095, 24797, 08079, 41031, 93659 #### [facility] [address] [place] [address], [facility] Glucose [Mass/Vol] 86 mg/dL Normal 70-100 [facility] Comment on above: Order Comment: No: D o not add to previous draw Performed By: #### 5 6101, 85550, 58826, 08344, 81058, 01378, 72629 #### [facility] [address] [place] [address], [facility] Potassium [Moles/Vol] 3.4 mmol/L Low 3.5-5.1 [facility] Comment on above: Order Comment: No: D o not add to previous draw Performed By: #### 5 6101, 47616, 45438, 49323, 12511, 07814, 19169 #### [facility] [address] [place] [address], [facility] Sodium [Moles/Vol] 129 mmol/L Low 136-145 [facility] Comment on above: Order Comment: No: D o not add to previous draw Performed By: #### 5 6101, 05805, 63478, 95785, 63118, 80456, 30617 #### [facility] [address] [place] [address], [facility] Urea nitrogen [Mass/Vol] 5 mg/dL Low 7-25 [facility] Comment on above: Order Comment: No: D o not add to previous draw Performed By: #### 5 6101, 12292, 55787, 17764, 42924, 55826, 20884 #### [facility] [address] CALCIUM IONIZED CBGLon 11-03 IONIZED CALCIUM 1.07 mmol/L Low 1.12-1.30 [facility] Comment on above: Performed By: #### 5 6101, 74415, 57678, 48601, 52658, 12282, 25980 #### [facility] [address] CBC COMPLETE BLOOD COUNTon 1 01-04-2019 Erythrocyte distribution width (RBC) [Ratio] 14.5 % Normal 11.5-15.0 [facility] Comment on above: Order Comment: No: D o not add to previous draw Performed By: #### 5 6101, 30650, 77058, 08510, 77488, 41321, 13516 #### [facility] [address] Hematocrit (Bld) [Volume fraction] 22.1 % Low 39.0-50.0 [facility] Comment on above: Order Comment: No: D o not add to previous draw Performed By: #### 5 6101, 50723, 91935, 87876, 06579, 33816, 33384 #### [facility] [address] Hemoglobin (Bld) [Mass/Vol] 7.5 g/dL Low 13.0-17.0 [facility] Comment on above: Order Comment: No: D o not add to previous draw Performed By: #### 5 6101, 75923, 10461, 48254, 55292, 50026, 52073 #### [facility] [address] MCH (RBC) [Entitic mass] 30.9 pg Normal 27.0-33.0 [facility] Comment on above: Order Comment: No: D o not add to previous draw Performed By: #### 5 6101, 12037, 04906, 56790, 05967, 89143, 04248 #### [facility] [address] MCHC (RBC) [Mass/Vol] 33.9 g/dL Normal 32.0-35.0 [facility] Comment on above: Order Comment: No: D o not add to previous draw Performed By: #### 5 6101, 20882, 37992, 11812, 95274, 38243, 28621 #### [facility] [address] MCV (RBC) [Entitic vol] 90.9 fL Normal 82.0-98.0 [facility] Comment on above: Order Comment: No: D o not add to previous draw Performed By: #### 5 6101, 62196, 79950, 11656, 68605, 26005, 67710 #### [facility] [address] Nucleated RBC/100 WBC (Bld) [Ratio] 0 % Normal 0-0 [facility] Comment on above: Order Comment: No: D o not add to previous draw Performed By: #### 5 6101, 28705, 94518, 79979, 24610, 40302, 01316 #### [facility] [address] [place] [address], [facility] PLAT CNT 204 10*3/uL Normal 150-400 [facility] Comment on above: Order Comment: No: D o not add to previous draw Performed By: #### 5 6101, 86152, 32496, 95668, 48108, 96472, 18071 #### [facility] [address] RBC (Bld) [#/Vol] 2.43 10*6/uL Low 4.20-5.70 [facility] Comment on above: Order Comment: No: D o not add to previous draw Performed By: #### 5 6101, 14691, 70206, 34487, 97889, 07469, 33331 #### [facility] [address] [place] [address], [facility] WBC (Bld) [#/Vol] 19.35 10*3/uL High 4.00-10.60 [facility] Comment on above: Order Comment: No: D o not add to previous draw Performed By: #### 5 6101, 30672, 69708, 67932, 58094, 13101, 28505 #### [facility] [address] [place] [address], [facility] MAGNESIUM BLOODon 11-03-2019 Magnesium [Mass/Vol] 1.6 mg/dL Low 1.9-2.7 [facility] Comment on above: Order Comment: No: D o not add to previous draw Performed By: #### 5 6101, 94259, 87370, 57468, 59477, 70540, 76547 #### [facility] [address] [place] [address], [facility] PHOSPHORUS BLOODon 9 Phosphate [Mass/Vol] 2.6 mg/dL Normal 2.5-5.0 [facility] Comment on above: Order Comment: No: D o not add to previous draw Performed By: #### 5 6101, 69195, 84266, 82992, 23315, 48785, 86115 #### [facility] [address] [place] [address], [facility] Phosphate [Mass/Vol] 2.5 mg/dL Normal 2.5-5.0 [facility] Comment on above: Order Comment: No: D o not add to previous draw Performed By: #### 5 6101, 29479, 15383, 11159, 32018, 66351, 17409 #### [facility] [address] [place] [address], [facility] PROTHROMBIN TIMEon 9 INR Coag (PPP) [Relative time] 1.40 {INR} High 0.91-1.16 [facility] Comment on above: Order Comment: No: [...] CHEST 1995;[id number]. Performed By: #### 5 6101, 22949, 49444, 83692, 98852, 69315, 86334 #### [facility] [address] PT Coag (PPP) [Time] 17.3 s High 12.3-14.8 [facility] Comment on above: Order Comment: No: D o not add to previous draw Result Comment: ALL RESULTS MUST BE INTERPRETED WITH RESPECT TO BLOOD DRAWING ARTIFACT OR DILUTION ERROR OF ANTICOAGULANT AT THE TIME OF SAMPLING. Performed By: #### 5 6101, 22540, 41377, 66539, 33575, 16606, 72183 #### [facility] [address] UFH HEPARIN ASSAYon 11-03-20 UNFRACTIONATED HEPARIN 0.21 IU/mL Low 0.30-0.70 [facility] Comment on above: Order Comment: Pt ca re Result Comment: [place] roxaban and Apixaban will interfere with the anti Xa assay used to monitor UFH and LMWH. Performed By: #### 5 6101, 60344, 38725, 43400, 80577, 14685, 10201 #### [facility] [address] [place] [address], [facility] UNFRACTIONATED HEPARIN 0.23 IU/mL Low 0.30-0.70 [facility] Comment on above: Result Comment: [place] roxaban and Apixaban will interfere with the anti Xa assay used to monitor UFH and LMWH. Performed By: #### 5 6101, 86710, 99548, 09529, 60134, 29180, 00002 #### [facility] [address] [place] [address], [facility] UNFRACTIONATED HEPARIN 0.31 IU/mL Normal 0.30-0.70 [facility] Comment on above: Result Comment: [place] roxaban and Apixaban will interfere with the anti Xa assay used to monitor UFH and LMWH. Performed By: #### 5 6101, 44822, 61162, 84687, 06383, 58554, 77699 #### [facility] [address] [place] [address], [facility] UNFRACTIONATED HEPARIN 0.30 IU/mL Normal 0.30-0.70 [facility] Comment on above: Order Comment: Pt re fused labs. Result Comment: [place] roxaban and Apixaban will interfere with the anti Xa assay used to monitor UFH and LMWH. Performed By: #### 5 6101, 65521, 39962, 70403, 80513, 35649, 75442 #### [facility] [address] [place] [address], [facility] BASIC METABOLIC PANELon 12-0 Calcium [Mass/Vol] 7.2 mg/dL Low 8.6-10.3 [facility] Comment on above: Order Comment: No: D o not add to previous draw Performed By: #### 5 6101, 40299, 02818, 31814, 04236, 93315, 54777 #### [facility] [address] [place] [address], [facility] Chloride [Moles/Vol] 96 mmol/L Low 98-107 [facility] Comment on above: Order Comment: No: D o not add to previous draw Performed By: #### 5 6101, 16203, 67437, 52593, 69899, 53257, 36329 #### [facility] [address] [place] [address], [facility] CO2 [Moles/Vol] 30 mmol/L Normal 21-31 [facility] Comment on above: Order Comment: No: D o not add to previous draw Performed By: #### 5 6101, 72274, 99454, 85662, 37099, 49042, 46672 #### [facility] [address] [place] [address], [facility] Creatinine [Mass/Vol] 0.45 mg/dL Low 0.70-1.30 [facility] Comment on above: Order Comment: No: D o not add to previous draw Performed By: #### 5 6101, 63670, 68351, 61895, 94425, 20075, 21448 #### [facility] [address] [place] [address], [facility] GFR/1.73 sq M predicted among blacks MDRD (S/P/Bld) [Vol rate/Area] mL/min/{1.73_m2} Normal >60 [facility] Comment on above: Order Comment: No: D o not add to previous draw Performed By: #### 5 6101, 41195, 46329, 34887, 71673, 51850, 44489 #### [facility] [address] [place] [address], [facility] GFR/1.73 sq M predicted among non-blacks MDRD (S/P/Bld) [Vol rate/Area] mL/min/{1.73_m2} Normal >60 [facility] Comment on above: Order Comment: No: D o not add to previous draw Performed By: #### 5 6101, 40188, 24147, 44308, 96458, 65501, 26587 #### [facility] [address] [place] [address], [place] Glucose [Mass/Vol] 94 mg/dL Normal 70-100 [facility] Comment on above: Order Comment: No: D o not add to previous draw Performed By: #### 5 6101, 24420, 65354, 95341, 40474, 60474, 87705 #### [facility] [address] [place] [address], [place] Potassium [Moles/Vol] 3.3 mmol/L Low 3.5-5.1 [facility] Comment on above: Order Comment: No: D o not add to previous draw Performed By: #### 5 6101, 89211, 98566, 16779, 45865, 89759, 98641 #### [facility] [address] [place] [address], [place] Sodium [Moles/Vol] 128 mmol/L Low 136-145 [facility] Comment on above: Order Comment: No: D o not add to previous draw Performed By: #### 5 6101, 75561, 71597, 14481, 97675, 84168, 86222 #### [facility] [address] [place] [address], [place] Urea nitrogen [Mass/Vol] 5 mg/dL Low 7-25 [facility] Comment on above: Order Comment: No: D o not add to previous draw Performed By: #### 5 6101, 40920, 44248, 47895, 05048, 47647, 71712 #### [facility] [address] [place] [address], [place] CALCIUMon 11-02-2019 Calcium [Mass/Vol] 7.2 mg/dL Low 8.6-10.3 [facility] Comment on above: Order Comment: No: D o not add to previous draw Performed By: #### 5 6101, 38111, 80474, 16841, 86624, 76205, 49689 #### [facility] [address] CBC COMPLETE BLOOD COUNTon 1 01-03-2019 Erythrocyte distribution width (RBC) [Ratio] 13.9 % Normal 11.5-15.0 [facility] Comment on above: Order Comment: No: D o not add to previous draw Performed By: #### 5 6101, 54642, 53860, 72844, 34319, 45947, 69693 #### [facility] [address] [place] [id number], [facility] Hematocrit (Bld) [Volume fraction] 21.4 % Low 39.0-50.0 [facility] Comment on above: Order Comment: No: D o not add to previous draw Performed By: #### 5 6101, 12771, 71901, 97956, 59234, 31288, 41979 #### [facility] [address] [place] [id number], [facility] Hemoglobin (Bld) [Mass/Vol] 7.6 g/dL Low 13.0-17.0 [facility] Comment on above: Order Comment: No: D o not add to previous draw Performed By: #### 5 6101, 01885, 90869, 53488, 15399, 59970, 40770 #### [facility] [address] [place] [address], [facility] MCH (RBC) [Entitic mass] 31.1 pg Normal 27.0-33.0 [facility] Comment on above: Order Comment: No: D o not add to previous draw Performed By: #### 5 6101, 98252, 93435, 72924, 10340, 88192, 16396 #### [facility] [address] MCHC (RBC) [Mass/Vol] 35.5 g/dL High 32.0-35.0 [facility] Comment on above: Order Comment: No: D o not add to previous draw Performed By: #### 5 6101, 81290, 63857, 76651, 50736, 54539, 61362 #### [facility] [address] [place] [id number], [facility] MCV (RBC) [Entitic vol] 87.7 fL Normal 82.0-98.0 [facility] Comment on above: Order Comment: No: D o not add to previous draw Performed By: #### 5 6101, 75922, 34415, 81409, 33161, 97999, 06777 #### [facility] [address] [facility] [place] [address], [facility] Nucleated RBC/100 WBC (Bld) [Ratio] 0 % Normal 0-0 [facility] Comment on above: Order Comment: No: D o not add to previous draw Performed By: #### 5 6101, 11046, 12463, 08085, 97802, 45417, 95443 #### [facility] [address] [facility] [place] [place] [address], [facility] PLAT CNT 144 10*3/uL Low 150-400 [facility] Comment on above: Order Comment: No: D o not add to previous draw Performed By: #### 5 6101, 15400, 42738, 09479, 50849, 45414, 25307 #### [facility] [address] [facility] [place] [id number], [facility] RBC (Bld) [#/Vol] 2.44 10*6/uL Low 4.20-5.70 [facility] Comment on above: Order Comment: No: D o not add to previous draw Performed By: #### 5 6101, 15506, 98720, 61027, 01407, 13509, 14701 #### [facility] [address] WBC (Bld) [#/Vol] 16.13 10*3/uL High 4.00-10.60 [facility] Comment on above: Order Comment: No: D o not add to previous draw Performed By: #### 5 6101, 98283, 67401, 29538, 44558, 50173, 49004 #### [facility] [address] MAGNESIUM BLOODon 11-02-2019 Magnesium [Mass/Vol] 1.6 mg/dL Low 1.9-2.7 [facility] Comment on above: Order Comment: No: D o not add to previous draw Performed By: #### 5 6101, 81502, 20025, 80786, 41487, 55268, 46259 #### [facility] [address] PHOSPHORUS BLOODon 9 Phosphate [Mass/Vol] 2.5 mg/dL Normal 2.5-5.0 [facility] Comment on above: Order Comment: No: D o not add to previous draw Performed By: #### 5 6101, 92844, 27755, 28225, 01686, 26137, 98686 #### [facility] [address] UFH HEPARIN ASSAYon 11-02-20 19 UNFRACTIONATED HEPARIN 0.10 IU/mL Critically low 0.30-0.70 [facility] Comment on above: Result Comment: [place] roxaban and Apixaban will interfere with the anti Xa assay used to monitor UFH and LMWH. RESULTS CHECKED AND CALLED. ACCURATELY READ BACK BY SUELLEN KAUR RN @ 2020 Performed By: #### 5 6101, 28708, 97491, 31092, 06051, 92529, 31779 #### [facility] [address] UNFRACTIONATED HEPARIN <0.10 Critically low 0.30-0.70 [facility] Comment on above: Result Comment: [place] roxaban and Apixaban will interfere with the anti Xa assay used to monitor UFH and LMWH. RESULTS CHECKED AND CALLED. ACCURATELY READ BACK BY JACOBY GREGORIO RN AT 0618 Performed By: #### 5 6101, 41464, 53222, 21109, 87399, 90877, 87920 #### [facility] [address] [facility]. [address] BASIC METABOLIC PANELon 12-0 Calcium [Mass/Vol] 6.8 mg/dL Low 8.6-10.3 [facility] Comment on above: Order Comment: No: D o not add to previous draw Performed By: #### 5 6101, 20826, 36353, 17583, 60758, 35002, 10099 #### [facility] [address] [facility] [place] [address], [facility] Chloride [Moles/Vol] 95 mmol/L Low 98-107 [facility] Comment on above: Order Comment: No: D o not add to previous draw Performed By: #### 5 6101, 48726, 53409, 86647, 74700, 23070, 79441 #### [facility] [address] [facility] [place] [address], [facility] CO2 [Moles/Vol] 29 mmol/L Normal 21-31 [facility] Comment on above: Order Comment: No: D o not add to previous draw Performed By: #### 5 6101, 82953, 71098, 86418, 82937, 16382, 69459 #### [facility] [address] [facility] [place] [address], [facility] Creatinine [Mass/Vol] 0.43 mg/dL Low 0.70-1.30 [facility] Comment on above: Order Comment: No: D o not add to previous draw Performed By: #### 5 6101, 39186, 59825, 84131, 76565, 02091, 30008 #### [facility] [address] [place] [address], [place] GFR/1.73 sq M predicted among blacks MDRD (S/P/Bld) [Vol rate/Area] mL/min/{1.73_m2} Normal >60 [facility] Comment on above: Order Comment: No: D o not add to previous draw Performed By: #### 5 6101, 81262, 03693, 52709, 16980, 61532, 02771 #### [facility] [address] [place] [address], [facility] GFR/1.73 sq M predicted among non-blacks MDRD (S/P/Bld) [Vol rate/Area] mL/min/{1.73_m2} Normal >60 [facility] Comment on above: Order Comment: No: D o not add to previous draw Performed By: #### 5 6101, 31148, 00508, 90424, 60780, 03213, 95113 #### [facility] [address] [place] [address], [place] Glucose [Mass/Vol] 113 mg/dL High 70-100 [facility] [place] Comment on above: Order Comment: No: D o not add to previous draw Performed By: #### 5 6101, 48344, 19940, 93370, 05794, 94660, 42971 #### [facility] [address] [place] [address], [place] Potassium [Moles/Vol] 3.0 mmol/L Low 3.5-5.1 [facility] Comment on above: Order Comment: No: D o not add to previous draw Performed By: #### 5 6101, 89265, 14030, 21704, 48120, 83988, 86313 #### [facility] [address] [place] [address], [place] Sodium [Moles/Vol] 131 mmol/L Low 136-145 [facility] Comment on above: Order Comment: No: D o not add to previous draw Performed By: #### 5 6101, 94512, 42146, 39990, 77033, 25181, 64637 #### [facility] [address] [place] [address], [place] Urea nitrogen [Mass/Vol] 7 mg/dL Normal 7-25 [facility] Comment on above: Order Comment: No: D o not add to previous draw Performed By: #### 5 6101, 02297, 81863, 45665, 88379, 21215, 81775 #### [facility] [address] [place] [address], [place] CALCIUM IONIZED CBGLon 11-01 IONIZED CALCIUM 1.01 mmol/L Low 1.12-1.30 [facility] Comment on above: Order Comment: Pt us ing restroom, come back Performed By: #### 5 6101, 34949, 46261, 15180, 65769, 82848, 72113 #### [facility] [address] [place] [address], [place] CBC COMPLETE BLOOD COUNTon 1 01-02-2019 Erythrocyte distribution width (RBC) [Ratio] 14.2 % Normal 11.5-15.0 [facility] Comment on above: Order Comment: No: D o not add to previous draw Performed By: #### 5 6101, 23882, 92702, 30472, 23277, 64782, 66136 #### [facility] [address] [place] [address], [place] Hematocrit (Bld) [Volume fraction] 18.2 % Low 39.0-50.0 [facility] Comment on above: Order Comment: No: D o not add to previous draw Performed By: #### 5 6101, 65038, 60831, 90776, 39812, 85856, 29319 #### [facility] [address] [place] [address], [place] Hemoglobin (Bld) [Mass/Vol] 6.5 g/dL Low 13.0-17.0 [facility] Comment on above: Order Comment: No: D o not add to previous draw Performed By: #### 5 6101, 79110, 69096, 83663, 72603, 87118, 24868 #### [facility] [address] [place] [id number], [facility] IMM PLATELET FRAC 11.4 % High 0.8-6.3 [facility] Comment on above: Order Comment: No: D o not add to previous draw Performed By: #### 5 6101, 05875, 15013, 76008, 73481, 16376, 97941 #### [facility] [address] [place] [address], [facility] MCH (RBC) [Entitic mass] 31.4 pg Normal 27.0-33.0 [facility] Comment on above: Order Comment: No: D o not add to previous draw Performed By: #### 5 6101, 82048, 81523, 31869, 36673, 19441, 45208 #### [facility] [address] [place] [address], [facility] MCHC (RBC) [Mass/Vol] 35.7 g/dL High 32.0-35.0 [facility] Comment on above: Order Comment: No: D o not add to previous draw Performed By: #### 5 6101, 04515, 55757, 24123, 38223, 28024, 81904 #### [facility] [address] [place] [address], [facility] MCV (RBC) [Entitic vol] 87.9 fL Normal 82.0-98.0 [facility] Comment on above: Order Comment: No: D o not add to previous draw Performed By: #### 5 6101, 81182, 86986, 00220, 98734, 70136, 49837 #### [facility] [address] Nucleated RBC/100 WBC (Bld) [Ratio] 0 % Normal 0-0 [facility] Comment on above: Order Comment: No: D o not add to previous draw Performed By: #### 5 6101, 51046, 88093, 44915, 18966, 86074, 49127 #### [facility] [address] [facility] [place] [address], [facility] PLAT CNT 86 10*3/uL Low 150-400 [facility] Comment on above: Order Comment: No: D o not add to previous draw Result Comment: P=82 23H Performed By: #### 5 6101, 32537, 76486, 82737, 11108, 67343, 81083 #### [facility] [address] RBC (Bld) [#/Vol] 2.07 10*6/uL Low 4.20-5.70 [facility] Comment on above: Order Comment: No: D o not add to previous draw Performed By: #### 5 6101, 80162, 09204, 33171, 91328, 82129, 90798 #### [facility] [address] [place] [address], [facility] WBC (Bld) [#/Vol] 16.52 10*3/uL High 4.00-10.60 [facility] Comment on above: Order Comment: No: D o not add to previous draw Performed By: #### 5 6101, 77400, 33416, 06349, 10965, 39498, 87331 #### [facility] [address] [facility] [place] [address], [facility] HEMOGLOBINon 11-01-2019 Hemoglobin (Bld) [Mass/Vol] 8.1 g/dL Low 13.0-17.0 [facility] Comment on above: Order Comment: No: D o not add to previous draw Performed By: #### 5 6101, 05072, 88651, 36173, 31140, 53662, 11930 #### [facility] [address] Hemoglobin (Bld) [Mass/Vol] 6.3 g/dL Low 13.0-17.0 [facility] Comment on above: Order Comment: No: D o not add to previous draw Performed By: #### 5 6101, 30189, 13690, 40120, 07738, 56291, 67623 #### [facility] [address] PLATELET COUNTon 11-01-2019 Platelets (Bld) [#/Vol] 102 10*3/uL Low 150-400 [facility] Comment on above: Order Comment: No: D o not add to previous draw Performed By: #### 5 6101, 11643, 88415, 74325, 23626, 62152, 32143 #### [facility] [address] [facility]. [address] RBC'S 2 UNITSon 11-01-2019 CROSSMATCH INTERP 1 COMP Normal [facility] Comment on above: Order Comment: Hemog lobin < 7gm/dl Performed By: #### 5 [id number], [id number], [id number], 41738, 13931, 31109, 10125 #### [facility] [address] [facility]. [address] CROSSMATCH INTERP 2 COMP Normal [facility] Comment on above: Order Comment: Hemog lobin < 7gm/dl Performed By: #### 5 6101, 05807, 78808, 17087, 85954, 97057, [id number] #### [facility] [address] [facility]. [address] PRODUCT CODE 1 [id number] Normal [facility] Comment on above: Order Comment: Hemog lobin < 7gm/dl Performed By: #### 5 6101, 32502, 46735, 56621, 96412, 47140, 01743 #### [facility] [address] PRODUCT CODE 2 [id number] Normal [facility] Comment on above: Order Comment: Hemog lobin < 7gm/dl Performed By: #### 5 6101, 41335, 05549, 84806, 01742, 25939, 35249 #### [facility] [address] [place] [id number], [facility] PRODUCT STATUS 1 PT Normal [facility] Comment on above: Order Comment: Hemog lobin < 7gm/dl Result Comment: Resu lt changed by IF on 11/01/2019 11:43. The previous value was XM. Result changed by IF on 11/02/2019 00:30. The previous value was IS. Performed By: #### 5 6101, 93731, 27838, 04712, 12302, 66495, 65293 #### [facility] [address] PRODUCT STATUS 2 PT Normal [facility] Comment on above: Order Comment: Hemog lobin < 7gm/dl Result Comment: Resu lt changed by IF on 11/01/2019 09:35. The previous value was XM. Result changed by IF on 11/02/2019 00:30. The previous value was IS. Performed By: #### 5 6101, 86624, 65497, 03062, 46274, 10820, 71120 #### [facility] [address] [place] [address], [facility] UNIT ABO 1 O Normal [facility] Comment on above: Order Comment: Hemog lobin < 7gm/dl Performed By: #### 5 6101, 24727, 60255, 94176, 75728, 16412, 85727 #### [facility] [address] [place] [address], [facility] UNIT ABO 2 O Normal [facility] Comment on above: Order Comment: Hemog lobin < 7gm/dl Performed By: #### 5 6101, 05150, 38200, 74003, 71398, 63972, 77766 #### [facility] [address] UNIT ID 1 [id number] Normal [facility] Comment on above: Order Comment: Hemog lobin < 7gm/dl Performed By: #### 5 6101, 65347, 07297, 73319, 74199, 73908, 87606 #### [facility] [address] UNIT ID 2 [id number]-* Normal [facility] Comment on above: Order Comment: Hemog lobin < 7gm/dl Performed By: #### 5 6101, 52358, 74952, 91620, 73838, 54492, 02923 #### [facility] [address] UNIT RH 1 Positive Normal [facility] Comment on above: Order Comment: Hemog lobin < 7gm/dl Performed By: #### 5 6101, 62466, 60389, 92150, 09142, 53334, 73499 #### [facility] [address] [place] [address], [facility] UNIT RH 2 Positive Normal [facility] Comment on above: Order Comment: Hemog lobin < 7gm/dl Performed By: #### 5 6101, 16334, 66990, 12329, 62879, 90612, 38942 #### [facility] [address] [place] [address], [facility] TYPE AND SCREENon 11-01-2019 ABO INTERPRETATION O Normal [facility] Comment on above: Performed By: #### 5 6101, 48888, 52091, 04015, 84286, 17427, 13201 #### [facility] [address] [place] [address], [facility] RH INTERPRETATION Positive Normal [facility] Comment on above: Performed By: #### 5 6101, 25816, 54236, 36763, 53585, 33781, 43978 #### [facility] [address] UFH HEPARIN ASSAYon 11-01-20 19 UNFRACTIONATED HEPARIN 0.91 IU/mL Critically high 0.30-0.70 [facility] Comment on above: Result Comment: [place] roxaban and Apixaban will interfere with the anti Xa assay used to monitor UFH and LMWH. RESULTS CHECKED AND CALLED. ACCURATELY READ BACK BY STACY ZENG RN AT 0622 Performed By: #### 5 6101, 55037, 18326, 56655, 77004, 83631, 07140 #### [facility] [address] BASIC METABOLIC PANELon 12-0 Calcium [Mass/Vol] 7.4 mg/dL Low 8.6-10.3 [facility] [place] Comment on above: Order Comment: No: D o not add to previous draw Performed By: #### 5 6101, 88769, 92524, 84868, 95634, 50685, 93426 #### [facility] [address] [place] [address], [facility] Chloride [Moles/Vol] 98 mmol/L Normal 98-107 [facility] Comment on above: Order Comment: No: D o not add to previous draw Performed By: #### 5 6101, 42293, 18711, 11208, 92890, 78607, 10396 #### [facility] [address] [place] [address], [facility] CO2 [Moles/Vol] 31 mmol/L Normal 21-31 [facility] Comment on above: Order Comment: No: D o not add to previous draw Performed By: #### 5 6101, 58973, 13305, 85517, 01079, 17005, 92077 #### [facility] [address] [place] [address], [place] Creatinine [Mass/Vol] 0.55 mg/dL Low 0.70-1.30 [facility] Comment on above: Order Comment: No: D o not add to previous draw Performed By: #### 5 6101, 69963, 69619, 69885, 73087, 98898, 67771 #### [facility] [address] [place] [address], [place] GFR/1.73 sq M predicted among blacks MDRD (S/P/Bld) [Vol rate/Area] mL/min/{1.73_m2} Normal >60 [facility] Comment on above: Order Comment: No: D o not add to previous draw Performed By: #### 5 6101, 66704, 83130, 11466, 90484, 97963, 01120 #### [facility] [address] [place] [address], [place] GFR/1.73 sq M predicted among non-blacks MDRD (S/P/Bld) [Vol rate/Area] mL/min/{1.73_m2} Normal >60 [facility] Comment on above: Order Comment: No: D o not add to previous draw Performed By: #### 5 6101, 24998, 65022, 91333, 14769, 39858, 62037 #### [facility] [address] [place] [address], [place] Glucose [Mass/Vol] 94 mg/dL Normal 70-100 [facility] [place] Comment on above: Order Comment: No: D o not add to previous draw Performed By: #### 5 6101, 64472, 98849, 07983, 13590, 85028, 89110 #### [facility] [address] [place] [address], [place] Potassium [Moles/Vol] 3.1 mmol/L Low 3.5-5.1 [facility] Comment on above: Order Comment: No: D o not add to previous draw Performed By: #### 5 6101, 74955, 94910, 13268, 67349, 53388, 56650 #### [facility] [address] [place] [id number], [facility] Sodium [Moles/Vol] 133 mmol/L Low 136-145 [facility] [place] Comment on above: Order Comment: No: D o not add to previous draw Performed By: #### 5 6101, 67257, 25739, 66038, 20970, 42349, 74536 #### [facility] [address] [place] [address], [facility] Urea nitrogen [Mass/Vol] 9 mg/dL Normal 7-25 [facility] Comment on above: Order Comment: No: D o not add to previous draw Performed By: #### 5 6101, 93178, 38782, 22832, 09188, 68304, 41712 #### [facility] [address] CBC COMPLETE BLOOD COUNTon 01-01-2019 Erythrocyte distribution width (RBC) [Ratio] 14.4 % Normal 11.5-15.0 [facility] Comment on above: Order Comment: No: D o not add to previous draw Performed By: #### 5 6101, 33778, 31082, 81323, 81815, 81335, 61548 #### [facility] [address] [place] [address], [facility] Hematocrit (Bld) [Volume fraction] 27.3 % Low 39.0-50.0 [facility] Comment on above: Order Comment: No: D o not add to previous draw Performed By: #### 5 6101, 61695, 48503, 87684, 32915, 04394, 09550 #### [facility] [address] Hemoglobin (Bld) [Mass/Vol] 9.5 g/dL Low 13.0-17.0 [facility] Comment on above: Order Comment: No: D o not add to previous draw Performed By: #### 5 6101, 59113, 89790, 12584, 02590, 34058, 08040 #### [facility] [address] [place] [address], [facility] IMM PLATELET FRAC 10.7 % High 0.8-6.3 [facility] Comment on above: Order Comment: No: D o not add to previous draw Performed By: #### 5 6101, 19025, 32457, 79335, 40157, 42877, 01436 #### [facility] [address] [place] [address], [facility] MCH (RBC) [Entitic mass] 30.9 pg Normal 27.0-33.0 [facility] Comment on above: Order Comment: No: D o not add to previous draw Performed By: #### 5 6101, 96207, 83386, 76488, 64145, 60791, 86803 #### [facility] [address] [place] [address], [facility] MCHC (RBC) [Mass/Vol] 34.8 g/dL Normal 32.0-35.0 [facility] Comment on above: Order Comment: No: D o not add to previous draw Performed By: #### 5 6101, 65166, 09582, 58748, 32877, 12211, 45852 #### [facility] [address] [place] [id number], [facility] MCV (RBC) [Entitic vol] 88.9 fL Normal 82.0-98.0 [facility] Comment on above: Order Comment: No: D o not add to previous draw Performed By: #### 5 6101, 97720, 98325, 86723, 77676, 09494, 40535 #### [facility] [address] Nucleated RBC/100 WBC (Bld) [Ratio] 0 % Normal 0-0 [facility] Comment on above: Order Comment: No: D o not add to previous draw Performed By: #### 5 6101, 88649, 62188, 72893, 39614, 81700, 42702 #### [facility] [address] [facility] [place] [address], [facility] PLAT CNT 82 10*3/uL Low 150-400 [facility] Comment on above: Order Comment: No: D o not add to previous draw Result Comment: P = 77 Performed By: #### 5 6101, 52955, 69420, 91739, 40365, 06211, 73087 #### [facility] [address] [place] [address], [facility] RBC (Bld) [#/Vol] 3.07 10*6/uL Low 4.20-5.70 [facility] Comment on above: Order Comment: No: D o not add to previous draw Performed By: #### 5 6101, 00088, 89121, 75623, 51127, 04522, 71545 #### [facility] [address] [place] [address], [facility] WBC (Bld) [#/Vol] 13.09 10*3/uL High 4.00-10.60 [facility] Comment on above: Order Comment: No: D o not add to previous draw Performed By: #### 5 6101, 96281, 53457, 98319, 51005, 23536, 28084 #### [facility] [address] [facility] [place] [address], [facility] MAGNESIUM BLOODon 10-31-2019 Magnesium [Mass/Vol] 1.9 mg/dL Normal 1.9-2.7 [facility] Comment on above: Order Comment: No: D o not add to previous draw Performed By: #### 5 6101, 38134, 84202, 34808, 99761, 06096, 39850 #### [facility] [address] [place] [address], [facility] UFH HEPARIN ASSAYon 10-31-20 19 UNFRACTIONATED HEPARIN 0.52 IU/mL Normal 0.30-0.70 [facility] Comment on above: Result Comment: [place] roxaban and Apixaban will interfere with the anti Xa assay used to monitor UFH and LMWH. Performed By: #### 5 6101, 42223, 32059, 49662, 47813, 66970, 07930 #### [facility] [address] BASIC METABOLIC PANELon 12- Calcium [Mass/Vol] 7.4 mg/dL Low 8.6-10.3 [facility] Comment on above: Order Comment: No: D o not add to previous draw Performed By: #### 5 6101, 60974, 51138, 99253, 58250, 84717, 63981 #### [facility] [address] [place] [address], [facility] Chloride [Moles/Vol] 97 mmol/L Low 98-107 [facility] Comment on above: Order Comment: No: D o not add to previous draw Performed By: #### 5 6101, 13475, 46629, 39770, 80502, 91562, 64353 #### [facility] [address] [place] [address], [facility] CO2 [Moles/Vol] 31 mmol/L Normal 21-31 [facility] Comment on above: Order Comment: No: D o not add to previous draw Performed By: #### 5 6101, 98374, 95904, 59381, 37312, 12549, 03525 #### [facility] [address] [place] [id number], [facility] Creatinine [Mass/Vol] 0.55 mg/dL Low 0.70-1.30 [facility] Comment on above: Order Comment: No: D o not add to previous draw Performed By: #### 5 6101, 65865, 54886, 70396, 65383, 40586, 50533 #### [facility] [address] [place] [address], [facility] GFR/1.73 sq M predicted among blacks MDRD (S/P/Bld) [Vol rate/Area] mL/min/{1.73_m2} Normal >60 [facility] Comment on above: Order Comment: No: D o not add to previous draw Performed By: #### 5 6101, 08067, 24932, 90251, 86624, 09036, 12423 #### [facility] [address] [place] [address], [facility] GFR/1.73 sq M predicted among non-blacks MDRD (S/P/Bld) [Vol rate/Area] mL/min/{1.73_m2} Normal >60 [facility] Comment on above: Order Comment: No: D o not add to previous draw Performed By: #### 5 6101, 53173, 69212, 99858, 37777, 88529, 80668 #### [facility] [address] [place] [address], [facility] Glucose [Mass/Vol] 111 mg/dL High 70-100 [facility] Comment on above: Order Comment: No: D o not add to previous draw Performed By: #### 5 6101, 17985, 87446, 17417, 71414, 39405, 96025 #### [facility] [address] [place] [address], [place] Potassium [Moles/Vol] 3.4 mmol/L Low 3.5-5.1 [facility] Comment on above: Order Comment: No: D o not add to previous draw Performed By: #### 5 6101, 91046, 47866, 08787, 69384, 93989, 93817 #### [facility] [address] [place] [address], [facility] Sodium [Moles/Vol] 134 mmol/L Low 136-145 [facility] Comment on above: Order Comment: No: D o not add to previous draw Performed By: #### 5 6101, 26762, 83837, 09108, 58823, 36070, 72503 #### [facility] [address] [place] [id number], [facility] Urea nitrogen [Mass/Vol] 10 mg/dL Normal 7-25 [facility] Comment on above: Order Comment: No: D o not add to previous draw Performed By: #### 5 6101, 25309, 37138, 41826, 87505, 50574, 67319 #### [facility] [address] CBC COMPLETE BLOOD COUNTon 12-31-2018 Erythrocyte distribution width (RBC) [Ratio] 14.1 % Normal 11.5-15.0 [facility] Comment on above: Order Comment: No: D o not add to previous draw Performed By: #### 5 6101, 99775, 42024, 46534, 44226, 54918, 24043 #### [facility] [address] [place] [address], [facility] Hematocrit (Bld) [Volume fraction] 32.9 % Low 39.0-50.0 [facility] Comment on above: Order Comment: No: D o not add to previous draw Performed By: #### 5 6101, 40010, 15996, 04813, 09769, 75953, 16492 #### [facility] [address] [place] [id number], [facility] Hemoglobin (Bld) [Mass/Vol] 11.3 g/dL Low 13.0-17.0 [facility] Comment on above: Order Comment: No: D o not add to previous draw Performed By: #### 5 6101, 16407, 38940, 17443, 97265, 45457, 88263 #### [facility] [address] [facility] [place] [address], [facility] IMM PLATELET FRAC 6.4 % High 0.8-6.3 [facility] Comment on above: Order Comment: No: D o not add to previous draw Performed By: #### 5 6101, 97060, 98005, 21761, 58440, 77732, 32173 #### [facility] [address] [facility] [place] [address], [facility] MCH (RBC) [Entitic mass] 30.9 pg Normal 27.0-33.0 [facility] Comment on above: Order Comment: No: D o not add to previous draw Performed By: #### 5 6101, 88132, 50683, 45255, 29320, 89886, 18943 #### [facility] [address] [facility]. [address] MCHC (RBC) [Mass/Vol] 34.3 g/dL Normal 32.0-35.0 [facility] Comment on above: Order Comment: No: D o not add to previous draw Performed By: #### 5 6101, 16416, 64500, 40784, 30727, 13421, 27138 #### [facility] [address] [facility] [place] [address], [facility] MCV (RBC) [Entitic vol] 89.9 fL Normal 82.0-98.0 [facility] Comment on above: Order Comment: No: D o not add to previous draw Performed By: #### 5 6101, 46016, 32185, 35456, 98705, 16980, 13857 #### [facility] [address] [place] [address], [facility] Nucleated RBC/100 WBC (Bld) [Ratio] 0 % Normal 0-0 [facility] Comment on above: Order Comment: No: D o not add to previous draw Performed By: #### 5 6101, 13262, 36207, 74852, 05512, 38811, 82325 #### [facility] [address] [place] [address], [facility] PLAT CNT 77 10*3/uL Low 150-400 [facility] Comment on above: Order Comment: No: D o not add to previous draw Performed By: #### 5 6101, 66136, 54719, 02416, 29689, 08436, 17030 #### [facility] [address] [place] [address], [facility] RBC (Bld) [#/Vol] 3.66 10*6/uL Low 4.20-5.70 [facility] Comment on above: Order Comment: No: D o not add to previous draw Performed By: #### 5 6101, 13896, 89257, 93583, 76116, 43433, 82789 #### [facility] [address] [place] [address], [facility] WBC (Bld) [#/Vol] 11.15 10*3/uL High 4.00-10.60 [facility] Comment on above: Order Comment: No: D o not add to previous draw Performed By: #### 5 6101, 98477, 40527, 85274, 86677, 18598, 97200 #### [facility] [address] [place] [address], [facility] LACTATE BLOODon 10-30-2019 Lactate [Moles/Vol] 0.7 mmol/L Normal 0.5-2.2 [facility] Comment on above: Order Comment: No: D o not add to previous draw Performed By: #### 5 6101, 62205, 14750, 62457, 09322, 46805, 58329 #### [facility] [address] [place] [address], [facility] LIVER BATTERYon 10-30-2019 Albumin [Mass/Vol] 2.1 g/dL Low 3.5-5.7 [facility] [place] Comment on above: Order Comment: No: D o not add to previous draw Performed By: #### 5 6101, 58598, 91208, 96626, 61300, 50837, 60671 #### [facility] [address] [place] [id number], [facility] ALKALINE PHOSPH 113 IU/L High 34-104 [facility] Comment on above: Order Comment: No: D o not add to previous draw Performed By: #### 5 6101, 26468, 28390, 37484, 41702, 44063, 27676 #### [facility] [address] [place] [address], [facility] ALT [Catalytic activity/Vol] 28 U/L Normal 7-52 [facility] Comment on above: Order Comment: No: D o not add to previous draw Performed By: #### 5 6101, 35921, 56844, 60727, 38843, 60806, 73396 #### [facility] [address] [place] [address], [place] AST [Catalytic activity/Vol] 19 U/L Normal 13-39 [facility] Comment on above: Order Comment: No: D o not add to previous draw Performed By: #### 5 6101, 03035, 72356, 18062, 50893, 30498, 56429 #### [facility] [address] [place] [address], [place] Bilirubin [Mass/Vol] 2.8 mg/dL High 0.3-1.0 [facility] Comment on above: Order Comment: No: D o not add to previous draw Performed By: #### 5 6101, 96559, 85754, 41663, 58123, 04231, 52362 #### [facility] [address] [place] [address], [place] Bilirubin.direct [Mass/Vol] 1.9 mg/dL High 0.0-0.2 [facility] Comment on above: Order Comment: No: D o not add to previous draw Performed By: #### 5 6101, 87468, 16507, 82272, 13331, 75799, 72636 #### [facility] [address] [place] [address], [facility] Protein [Mass/Vol] 4.7 g/dL Low 6.0-8.3 [facility] Comment on above: Order Comment: No: D o not add to previous draw Performed By: #### 5 6101, 52047, 69744, 83313, 22276, 00700, 37971 #### [facility] [address] [place] [address], [facility] MAGNESIUM BLOODon 10-30-2019 Magnesium [Mass/Vol] 2.0 mg/dL Normal 1.9-2.7 [facility] Comment on above: Order Comment: No: D o not add to previous draw Performed By: #### 5 6101, 58961, 54794, 09533, 12289, 51339, 12125 #### [facility] [address] [place] [address], [facility] PHOSPHORUS BLOODon 9 Phosphate [Mass/Vol] 3.3 mg/dL Normal 2.5-5.0 [facility] Comment on above: Order Comment: No: D o not add to previous draw Performed By: #### 5 6101, 01194, 16807, 85967, 80217, 94230, 47866 #### [facility] [address] [place] [address], [facility] UFH HEPARIN ASSAYon 10-30-20 19 UNFRACTIONATED HEPARIN 0.43 IU/mL Normal 0.30-0.70 [facility] Comment on above: Result Comment: [place] roxaban and Apixaban will interfere with the anti Xa assay used to monitor UFH and LMWH. Performed By: #### 5 6101, 15017, 08822, 39033, 27822, 07624, 87370 #### [facility] [address] [place] [address], [facility] BASIC METABOLIC PANELon 11-3 02019 Calcium [Mass/Vol] 7.3 mg/dL Low 8.6-10.3 [facility] Comment on above: Order Comment: No: D o not add to previous draw Performed By: #### 5 6101, 83236, 52503, 22553, 73473, 79301, 91543 #### [facility] [address] [place] [address], [facility] Chloride [Moles/Vol] 95 mmol/L Low 98-107 [facility] Comment on above: Order Comment: No: D o not add to previous draw Performed By: #### 5 6101, 97092, 68202, 25159, 25875, 17368, 43576 #### [facility] [address] [place] [address], [facility] CO2 [Moles/Vol] 33 mmol/L High 21-31 [facility] Comment on above: Order Comment: No: D o not add to previous draw Performed By: #### 5 6101, 17975, 29105, 65530, 47780, 63660, 66262 #### [facility] [address] [place] [id number], [facility] Creatinine [Mass/Vol] 0.63 mg/dL Low 0.70-1.30 [facility] Comment on above: Order Comment: No: D o not add to previous draw Performed By: #### 5 6101, 64740, 19678, 91312, 86031, 22976, 24840 #### [facility] [address] [place] [address], [facility] GFR/1.73 sq M predicted among blacks MDRD (S/P/Bld) [Vol rate/Area] mL/min/{1.73_m2} Normal >60 [facility] Comment on above: Order Comment: No: D o not add to previous draw Performed By: #### 5 6101, 17307, 12734, 18021, 83798, 67064, 88042 #### [facility] [address] [place] [address], [facility] GFR/1.73 sq M predicted among non-blacks MDRD (S/P/Bld) [Vol rate/Area] mL/min/{1.73_m2} Normal >60 [facility] Comment on above: Order Comment: No: D o not add to previous draw Performed By: #### 5 6101, 04554, 94914, 42585, 27724, 78070, 81053 #### [facility] [address] [place] [address], [place] Glucose [Mass/Vol] 134 mg/dL High 70-100 [facility] [place] Comment on above: Order Comment: No: D o not add to previous draw Performed By: #### 5 6101, 83334, 51099, 21398, 74061, 84386, 98116 #### [facility] [address] [place] [address], [place] Potassium [Moles/Vol] 3.8 mmol/L Normal 3.5-5.1 [facility] Comment on above: Order Comment: No: D o not add to previous draw Performed By: #### 5 6101, 92669, 14416, 66076, 59878, 64714, 05193 #### [facility] [address] [place] [address], [place] Sodium [Moles/Vol] 132 mmol/L Low 136-145 [facility] [place] Comment on above: Order Comment: No: D o not add to previous draw Performed By: #### 5 6101, 20650, 30619, 42567, 92670, 54333, 14533 #### [facility] [address] [place] [address], [place] Urea nitrogen [Mass/Vol] 10 mg/dL Normal 7-25 [facility] Comment on above: Order Comment: No: D o not add to previous draw Performed By: #### 5 6101, 63340, 39931, 63613, 53804, 39589, 08401 #### [facility] [address] [place] [address], [facility] CBC W/DIFFon 10-29-2019 ABS BASOPHILS 0.1 10*3/uL Normal 0.0-0.2 [facility] Comment on above: Order Comment: No: D o not add to previous draw Performed By: #### 8 4511 #### [facility] [address] [place] [address], [facility] ABS IMM GRANS 0.2 10*3/uL Normal 0.0-0.2 [facility] Comment on above: Order Comment: No: D o not add to previous draw Performed By: #### 8 4511 #### [facility] [address] [facility] [place] [address], [facility] ABS NEUTROPHILS 12.1 10*3/uL High 1.6-7.6 [facility] Comment on above: Order Comment: No: D o not add to previous draw Performed By: #### 8 4511 #### [facility] [address] [facility] [place] [address], [facility] Basophils/100 WBC (Bld) 0.4 % Normal 0.0-1.0 [facility] Comment on above: Order Comment: No: D o not add to previous draw Performed By: #### 8 4511 #### [facility] [address] [facility] [place] [address], [facility] MAXINE CELLS Moderate Normal [facility] Comment on above: Order Comment: No: D o not add to previous draw Performed By: #### 8 4511 #### [facility] [address] [place] [address], [facility] Eosinophils (Bld) [#/Vol] 0.0 10*3/uL Normal 0.0-0.5 [facility] Comment on above: Order Comment: No: D o not add to previous draw Performed By: #### 8 4511 #### [facility] [address] [place] [address], [facility] Eosinophils/100 WBC (Bld) 0.0 % Normal 0.0-6.0 [facility] Comment on above: Order Comment: No: D o not add to previous draw Performed By: #### 8 4511 #### [facility] [address] [place] [address], [facility] Erythrocyte distribution width (RBC) [Ratio] 14.2 % Normal 11.5-15.0 [facility] Comment on above: Order Comment: No: D o not add to previous draw Performed By: #### 8 4511 #### [facility] [address] [place] [address], [facility] Hematocrit (Bld) [Volume fraction] 34.8 % Low 39.0-50.0 [facility] Comment on above: Order Comment: No: D o not add to previous draw Performed By: #### 8 4511 #### [facility] [address] [place] [address], [facility] Hemoglobin (Bld) [Mass/Vol] 12.3 g/dL Low 13.0-17.0 [facility] Comment on above: Order Comment: No: D o not add to previous draw Performed By: #### 8 4511 #### [facility] [address] [place] [address], [facility] IMM PLATELET FRAC 7.9 % High 0.8-6.3 [facility] Comment on above: Order Comment: No: D o not add to previous draw Performed By: #### 8 4511 #### [facility] [address] [place] [address], [place] IMMATURE GRANS 1.1 % High 0.0-1.[address] [facility] gayathri [facility] Comment on above: Order Comment: No: D o not add to previous draw Performed By: #### 8 4511 #### [facility] [address] [place] [address], [facility] Lymphocytes (Bld) [#/Vol] 0.7 10*3/uL Low 1.2-4.0 [facility] Comment on above: Order Comment: No: D o not add to previous draw Performed By: #### 8 4511 #### [facility] [address] [place] [address], [facility] Lymphocytes/100 WBC (Bld) 5.2 % Low 20.0-45.0 [facility] Comment on above: Order Comment: No: D o not add to previous draw Performed By: #### 8 4511 #### [facility] [address] [place] [address], [facility] MCH (RBC) [Entitic mass] 31.2 pg Normal 27.0-33.0 [facility] Comment on above: Order Comment: No: D o not add to previous draw Performed By: #### 8 4511 #### [facility] [address] [place] [address], [facility] MCHC (RBC) [Mass/Vol] 35.3 g/dL High 32.0-35.0 [facility] Comment on above: Order Comment: No: D o not add to previous draw Performed By: #### 8 4511 #### [facility] [address] [facility] [address], [facility] MCV (RBC) [Entitic vol] 88.3 fL Normal 82.0-98.0 [facility] Comment on above: Order Comment: No: D o not add to previous draw Performed By: #### 8 4511 #### [facility] [address] [place] [address], [facility] Monocytes (Bld) [#/Vol] 0.5 10*3/uL Normal 0.1-1.0 [facility] Comment on above: Order Comment: No: D o not add to previous draw Performed By: #### 8 4511 #### [facility] [address] [place] [address], [facility] MONOS 3.4 % Low 5.0-12.0 [facility] Comment on above: Order Comment: No: D o not add to previous draw Performed By: #### 8 4511 #### [facility] [address] [place] [address], [facility] Neutrophils (Bld) [#/Vol] Slight Normal [facility] Comment on above: Order Comment: No: D o not add to previous draw Performed By: #### 8 4511 #### [facility] [address] [place] [address], [facility] Neutrophils/100 WBC (Bld) 89.9 % High 40.0-72.0 [facility] Comment on above: Order Comment: No: D o not add to previous draw Performed By: #### 8 4511 #### [facility] [address] [place] [address], [place] Nucleated RBC/100 WBC (Bld) [Ratio] 0 % Normal 0-0 [facility] Comment on above: Order Comment: No: D o not add to previous draw Performed By: #### 8 4511 #### [facility] [address] [place] [address], [facility] OTHER 2 Checked by Jennifer Cabrera M.D. Normal [facility] Comment on above: Order Comment: No: D o not add to previous draw Result Comment: Resu lt changed by LIOR on 10/31/2019 14:05. The previous value was Preliminary report; verified report to follow. Performed By: #### 8 4511 #### [facility] [address] [place] [address], [place] PLAT CNT 76 10*3/uL Low 150-400 [facility] Comment on above: Order Comment: No: D o not add to previous draw Performed By: #### 8 4511 #### [facility] [address] [place] [address], [facility] POIK Moderate Normal [facility] Comment on above: Order Comment: No: D o not add to previous draw Performed By: #### 8 4511 #### [facility] [address] [place] [address], [place] RBC (Bld) [#/Vol] 3.94 10*6/uL Low 4.20-5.70 [facility] Comment on above: Order Comment: No: D o not add to previous draw Performed By: #### 8 4511 #### [facility] [address] [place] [address], [facility] TARGET CELLS Slight Normal The [facility] Comment on above: Order Comment: No: D o not add to previous draw Performed By: #### 8 4511 #### [facility] [address] [place] [address], [place] TOXIC GRANULATION Marked Normal [facility] Comment on above: Order Comment: No: D o not add to previous draw Performed By: #### 8 4511 #### [facility] [address] [place] [address], [facility] WBC (Bld) [#/Vol] 13.45 10*3/uL High 4.00-10.60 [facility] Comment on above: Order Comment: No: D o not add to previous draw Performed By: #### 8 4511 #### [facility] [address] [place] [address], [place] LACTATE BLOODon 10-29-2019 Lactate [Moles/Vol] 1.3 mmol/L Normal 0.5-2.2 [facility] Comment on above: Order Comment: No: D o not add to previous draw Performed By: #### 5 6101, 34267, 34104, 50936, 11155, 11914, 48534 #### [facility] [address] [place] [address], [facility] LIVER BATTERYon 10-29-2019 Albumin [Mass/Vol] 2.1 g/dL Low 3.5-5.7 [facility] Comment on above: Order Comment: No: D o not add to previous draw Performed By: #### 5 6101, 95205, 86165, 93692, 38580, 40950, 36312 #### [facility] [address] [place] [id number], [facility] ALKALINE PHOSPH 133 IU/L High 34-104 [facility] Comment on above: Order Comment: No: D o not add to previous draw Performed By: #### 5 6101, 40771, 94184, 30510, 36888, 88978, 05136 #### [facility] [address] [place] [address], [facility] ALT [Catalytic activity/Vol] 34 U/L Normal 7-52 [facility] Comment on above: Order Comment: No: D o not add to previous draw Performed By: #### 5 6101, 92905, 55955, 15315, 55032, 99092, 70806 #### [facility] [address] [place] [address], [facility] AST [Catalytic activity/Vol] 23 U/L Normal 13-39 [facility] Comment on above: Order Comment: No: D o not add to previous draw Performed By: #### 5 6101, 41516, 28065, 16840, 05418, 58668, 24100 #### [facility] [address] [place] [id number], [facility] Bilirubin [Mass/Vol] 3.0 mg/dL High 0.3-1.0 [facility] Comment on above: Order Comment: No: D o not add to previous draw Performed By: #### 5 6101, 02133, 64584, 22504, 52094, 49037, 30012 #### [facility] [address] [place] [address], [facility] Bilirubin.direct [Mass/Vol] 2.2 mg/dL High 0.0-0.2 [facility] Comment on above: Order Comment: No: D o not add to previous draw Performed By: #### 5 6101, 48190, 89839, 45745, 57026, 15321, 38613 #### [facility] [address] [place] [address], [facility] Protein [Mass/Vol] 4.7 g/dL Low 6.0-8.3 The [facility] Comment on above: Order Comment: No: D o not add to previous draw Performed By: #### 5 6101, 77155, 57218, 90826, 55578, 04401, 91985 #### [facility] [address] MAGNESIUM BLOODon 10-29-2019 Magnesium [Mass/Vol] 1.9 mg/dL Normal 1.9-2.7 [facility] Comment on above: Order Comment: No: D o not add to previous draw Performed By: #### 8 4511 #### [facility] [address] PHOSPHORUS BLOODon 9 Phosphate [Mass/Vol] 3.5 mg/dL Normal 2.5-5.0 [facility] Comment on above: Order Comment: No: D o not add to previous draw Performed By: #### 5 6101, 95300, 40754, 87043, 81325, 62853, 81404 #### [facility] [address] UFH HEPARIN ASSAYon 10-29-20 19 UNFRACTIONATED HEPARIN 0.31 IU/mL Normal 0.30-0.70 [facility] Comment on above: Result Comment: [place] roxaban and Apixaban will interfere with the anti Xa assay used to monitor UFH and LMWH. Performed By: #### 5 6101, 44981, 25330, 28593, 56938, 32249, 59899 #### [facility] [address] UNFRACTIONATED HEPARIN <0.10 Critically low 0.30-0.70 [facility] Comment on above: Result Comment: [place] roxaban and Apixaban will interfere with the anti Xa assay used to monitor UFH and LMWH. RESULTS CHECKED AND CALLED. ACCURATELY READ BACK BY MATTHEW HERNANDEZ RN AT 13:10 Performed By: #### 5 6101, 90919, 08614, 85286, 60283, 45545, 53790 #### [facility] [address] UNFRACTIONATED HEPARIN <0.10 Critically low 0.30-0.70 [facility] Comment on above: Result Comment: [place] roxaban and Apixaban will interfere with the anti Xa assay used to monitor UFH and LMWH. RESULTS CHECKED AND CALLED. ACCURATELY READ BACK BY BRANDON VAN RN AT 0532. Performed By: #### 5 6101, 98292, 40205, 75921, 77595, 17286, 13120 #### [facility] [address] *BLOOD CULTUREon 10-28-2019 Bacteria identified Cx Nom (Bld) Clinical Report: (D) Specimen: BLOOD CULTURE Collected: 10/28/2019 11:05 Status: Final Last Updated: 11/02/2019 14:57 CULT RES (Final) No Growth Day 5 Normal [facility] Comment on above: Performed By: #### 5 6101, 98847, 33305, 92870, 11002, 60547, 12491 #### [facility] [address] ANTITHROMBIN III ACTIVITYon 10-28-2019 AT 3 ACTIVITY 69 % Low 70-120 The [facility] Comment on above: Performed By: #### 5 6101, 22460, 23703, 42053, 75197, 02599, 46925 #### [facility] [address] [place], [place] [id number] [place] [address] APC RESISTANCE ASSAYon 10-28 APC RESISTANCE 2.4 RATIO Normal 2.0-4.9 [facility] Comment on above: Performed By: #### 5 6101, 56077, 44501, 71605, 22116, 19793, 75237 #### [facility] [address] APTTon 10-28-2019 aPTT Coag (Bld) [Time] 33.7 s Normal 25.0-35.0 [facility] Comment on above: Order Comment: No: [...] THIS PURPOSE. Performed By: #### 5 6101, 04952, 51092, 92254, 88948, 43055, 72217 #### [facility] [address] ARTERIAL BLOOD GAS WITH ICAo n 10-28-2019 BASE EXCESS 7 mmol/L High -2-3 [facility] Comment on above: Performed By: #### 8 4511 #### [facility] [address] [place] [address], [facility] DELIVERY SYSTEMS RA Normal [facility] Comment on above: Performed By: #### 8 3211 #### [facility] [address] [facility] [place] [address], [facility] HCO3 (Bld) [Moles/Vol] 31 mmol/L Critically high 21-28 [facility] Comment on above: Performed By: #### 8 2731 #### [facility] [address] [place] [address], [facility] IONIZED CALCIUM 1.09 mmol/L Low 1.13-1.32 [facility] Comment on above: Performed By: #### 8 4511 #### [facility] [address] [place] [address], [place] MODALITY RA Normal [facility] Comment on above: Performed By: #### 8 4511 #### [facility] [address] [place] [address], [place] Oxygen (Bld) [Partial pressure] 66 mm[Hg] Low 83-108 [facility] Comment on above: Performed By: #### 8 4511 #### [facility] [address] [place] [address], [facility] Oxygen saturation in Blood 91.4 % Low 94.0-97.0 [facility] Comment on above: Performed By: #### 8 4511 #### [facility] [address] [place] [address], [place] PCO2 40 mmHg Normal 35-45 [facility] Comment on above: Performed By: #### 8 4511 #### [facility] [address] [place] [address], [place] pH (Bld) 7.49 [pH] High 7.35-7.45 [facility] Comment on above: Performed By: #### 8 4511 #### [facility] [address] [place] [address], [place] BASIC METABOLIC PANELon 11-2 Calcium [Mass/Vol] 7.8 mg/dL Low 8.6-10.3 [facility] Comment on above: Order Comment: No: D o not add to previous draw Performed By: #### 8 4511 #### [facility] [address] [place] [address], [place] Chloride [Moles/Vol] 91 mmol/L Low 98-107 [facility] Comment on above: Order Comment: No: D o not add to previous draw Performed By: #### 8 4511 #### [facility] [address] [place] [address], [place] CO2 [Moles/Vol] 28 mmol/L Normal 21-31 [facility] Comment on above: Order Comment: No: D o not add to previous draw Performed By: #### 8 4511 #### [facility] [address] [place] [address], [place] Creatinine [Mass/Vol] 0.50 mg/dL Low 0.70-1.30 [facility] Comment on above: Order Comment: No: D o not add to previous draw Performed By: #### 8 4511 #### [facility] [address] [place] [address], [place] GFR/1.73 sq M predicted among blacks MDRD (S/P/Bld) [Vol rate/Area] mL/min/{1.73_m2} Normal >60 [facility] Comment on above: Order Comment: No: D o not add to previous draw Performed By: #### 8 4511 #### [facility] [address] [place] [address], [place] GFR/1.73 sq M predicted among non-blacks MDRD (S/P/Bld) [Vol rate/Area] mL/min/{1.73_m2} Normal >60 [facility] Comment on above: Order Comment: No: D o not add to previous draw Performed By: #### 8 4511 #### [facility] [address] [place] [address], [place] Glucose [Mass/Vol] 137 mg/dL High 70-100 [facility] Comment on above: Order Comment: No: D o not add to previous draw Performed By: #### 8 4511 #### [facility] [address] [place] [address], [place] Potassium [Moles/Vol] 3.8 mmol/L Normal 3.5-5.1 [facility] Comment on above: Order Comment: No: D o not add to previous draw Performed By: #### 8 4511 #### [facility] [address] [place] [id number], [facility] Sodium [Moles/Vol] 125 mmol/L Low 136-145 [facility] Comment on above: Order Comment: No: D o not add to previous draw Performed By: #### 8 4511 #### [facility] [address] [place] [address], [facility] Urea nitrogen [Mass/Vol] 9 mg/dL Normal 7-25 [facility] Comment on above: Order Comment: No: D o not add to previous draw Performed By: #### 8 4511 #### [facility] [address] [place] [address], [facility] CBC W/DIFFon 10-28-2019 ABS BASOPHILS 0.1 10*3/uL Normal 0.0-0.2 [facility] Comment on above: Performed By: #### 5 0103 #### [facility] [address] [facility] [address], [facility] ABS IMM GRANS 0.1 10*3/uL Normal 0.0-0.2 [facility] Comment on above: Performed By: #### 5 0103 #### [facility] [address] [place] [id number], [facility] ABS NEUTROPHILS 12.6 10*3/uL High 1.6-7.6 [facility] Comment on above: Performed By: #### 5 0103 #### [facility] [address] [place] [id number], [facility] Basophils/100 WBC (Bld) 0.4 % Normal 0.0-1.0 [facility] Comment on above: Performed By: #### 5 0103 #### [facility] [address] [place] [address], [facility] Eosinophils (Bld) [#/Vol] 0.0 10*3/uL Normal 0.0-0.5 [facility] Comment on above: Performed By: #### 5 0103 #### [facility] [address] [facility] [place] [address], [facility] Eosinophils/100 WBC (Bld) 0.1 % Normal 0.0-6.0 [facility] Comment on above: Performed By: #### 5 0103 #### [facility] [address] [facility]. [address] Erythrocyte distribution width (RBC) [Ratio] 13.6 % Normal 11.5-15.0 [facility] Comment on above: Performed By: #### 5 0103 #### [facility] [address] [facility] [address] Hematocrit (Bld) [Volume fraction] 36.1 % Low 39.0-50.0 [facility] Comment on above: Performed By: #### 5 0103 #### [facility] [address] [facility] [place] [address], [facility] Hemoglobin (Bld) [Mass/Vol] 12.8 g/dL Low 13.0-17.0 [facility] Comment on above: Performed By: #### 5 0103 #### [facility] [address] [facility] [place] [address], [facility] IMM PLATELET FRAC 5.9 % Normal 0.8-6.3 [facility] Comment on above: Performed By: #### 5 0103 #### [facility] [address] [place] [address], [facility] IMMATURE GRANS 0.9 % Normal 0.0-1.[address] [facility] Comment on above: Performed By: #### 5 0103 #### [facility] [address] [facility] [place] [address], [facility] Lymphocytes (Bld) [#/Vol] 0.6 10*3/uL Low 1.2-4.0 [facility] Comment on above: Performed By: #### 5 3 #### [facility] [address] [place] [address], [facility] Lymphocytes/100 WBC (Bld) 4.5 % Low 20.0-45.0 [facility] Comment on above: Performed By: #### 5 0103 #### [facility] [address] [place] [address], [facility] MCH (RBC) [Entitic mass] 31.0 pg Normal 27.0-33.0 [facility] Comment on above: Performed By: #### 5 102 #### [facility] [address] MCHC (RBC) [Mass/Vol] 35.5 g/dL High 32.0-35.0 [facility] Comment on above: Performed By: #### 5 3 #### [facility] [address] [place] [address], [facility] MCV (RBC) [Entitic vol] 87.4 fL Normal 82.0-98.0 [facility] Comment on above: Performed By: #### 5 3 #### [facility] [address] [facility] [place] [place] [address], [facility] Monocytes (Bld) [#/Vol] 0.6 10*3/uL Normal 0.1-1.0 [facility] Comment on above: Performed By: #### 5 3 #### [facility] [address] [place] [address], [facility] MONOS 4.6 % Low 5.0-12.0 [facility] Comment on above: Performed By: #### 5 3 #### [facility] [address] [place] [address], [facility] Neutrophils/100 WBC (Bld) 89.5 % High 40.0-72.0 [facility] Comment on above: Performed By: #### 5 0103 #### [facility] [address] [place] [id number], [facility] Nucleated RBC/100 WBC (Bld) [Ratio] 0 % Normal 0-0 [facility] Comment on above: Performed By: #### 5 0103 #### [facility] [address] [facility] [place] [place] [address], [facility] PLAT CNT 98 10*3/uL Low 150-400 [facility] Comment on above: Performed By: #### 5 0103 #### [facility] [address] [place] [address], [facility] RBC (Bld) [#/Vol] 4.13 10*6/uL Low 4.20-5.70 [facility] Comment on above: Performed By: #### 5 0103 #### [facility] [address] [facility] [place] [place] [address], [facility] WBC (Bld) [#/Vol] 14.05 10*3/uL High 4.00-10.60 [facility] Comment on above: Performed By: #### 5 0103 #### [facility] [address] [facility] [place] [id number], [facility] FACTOR IIon 10-28-2019 FACTOR II 69 % Normal 65-120 [facility] Comment on above: Performed By: #### 5 6101, 23887, 92403, 95475, 00049, 45424, 52256 #### [facility] [address] [facility] [place] [place] [address], [facility] HOMOCYSTEINEon 10-28-2019 HOMOCYSTEINE 8.1 umol/L Normal 4.0-12.0 The [facility] Comment on above: Performed By: #### 5 6101, 58132, 29979, 85488, 07097, 09515, 33294 #### [facility] [address] [place] [address], [facility] LACTATE BLOODon 10-28-2019 Lactate [Moles/Vol] 1.2 mmol/L Normal 0.5-2.2 [facility] Comment on above: Order Comment: No: D o not add to previous draw Performed By: #### 1 0054 #### [facility] [address] [place] [address], [facility] LIVER BATTERYon 10-28-2019 Albumin [Mass/Vol] 2.4 g/dL Low 3.5-5.7 The [facility] Comment on above: Order Comment: No: D o not add to previous draw Performed By: #### 8 4511 #### [facility] [address] [place] [address], [facility] ALKALINE PHOSPH 187 IU/L High 34-104 [facility] Comment on above: Order Comment: No: D o not add to previous draw Performed By: #### 8 4511 #### [facility] [address] [place] [address], [facility] ALT [Catalytic activity/Vol] 50 U/L Normal 7-52 [facility] Comment on above: Order Comment: No: D o not add to previous draw Performed By: #### 8 4511 #### [facility] [address] [place] [address], [facility] AST [Catalytic activity/Vol] 26 U/L Normal 13-39 [facility] Comment on above: Order Comment: No: D o not add to previous draw Performed By: #### 8 4511 #### [facility] [address] [place] [address], [facility] Bilirubin [Mass/Vol] 3.3 mg/dL High 0.3-1.0 [facility] Comment on above: Order Comment: No: D o not add to previous draw Performed By: #### 8 4511 #### [facility] [address] [place] [address], [facility] Bilirubin.direct [Mass/Vol] 2.2 mg/dL High 0.0-0.2 [facility] Comment on above: Order Comment: No: D o not add to previous draw Performed By: #### 8 4511 #### [facility] [address] [place] [id number], [facility] Protein [Mass/Vol] 5.4 g/dL Low 6.0-8.3 [facility] Comment on above: Order Comment: No: D o not add to previous draw Performed By: #### 8 4511 #### [facility] [address] [place] [address], [facility] MAGNESIUM BLOODon 10-28-2019 Magnesium [Mass/Vol] 1.9 mg/dL Normal 1.9-2.7 [facility] Comment on above: Order Comment: No: D o not add to previous draw Performed By: #### 8 4511 #### [facility] [address] Operative Reporton 9 Operative Report MR#: [id number] I [facility] Pt. Name: Miguel Baron Room #: ANSLEY [id number] Discharge Date: Birthdate: 1960 OPERATIVE REPORT DATE [...] Dawn MD Date Trans: 10/28/2019 05:02 P/johno [id number] cc: Jersey Whittaker D.O. [address] [facility] [phone] Wandy Magana M.D. E R Physican...do Not Send [address] [facility] [address] Normal [facility] PHOSPHORUS BLOODon 9 Phosphate [Mass/Vol] 3.8 mg/dL Normal 2.5-5.0 [facility] Comment on above: Order Comment: No: D o not add to previous draw Performed By: #### 8 3341 #### [address] PORTABLE CHEST 1 VIEWon 10-01 PORTABLE CHEST 1 VIEW [facility] Department of Radiology [address] [place] [id number] ======== Patient Name: MIGUEL BARON : 1960 Sex: M Age: Race: White Pt. Location: [place] [address] Patient Status: I Ordered Date: 10/28/2019 2:50:00 [...] findings. Electronically signed by:Wild Saravia. Transcribed by: [email or web address], User Resident: NELSY KENDRICK Electronically Signed by: WILD SARAVIA @ 10/28/2019 04:50 PM I personally read this/these film(s) with this resident Normal [facility] Comment on above: Order Comment: Check NG Tube Position PROTEIN C ACTIVITYon 019 Protein [Mass/Vol] 47 % Critically low 60-140 Th e [facility] Comment on above: Performed By: #### 5 6101, 53661, 77493, 88759, 19820, 84879, 95798 #### [facility] [address] [facility]. [address] PROTEIN C ANTIGENon 10-28-20 19 Protein [Mass/Vol] 53 % Low 65-120 [facility] Comment on above: Performed By: #### 5 6101, 85515, 44701, 98672, 98671, 39486, 21529 #### [facility] [address] [place] [address], [facility] PROTEIN S ACTIVITYon 019 Protein [Mass/Vol] 70 % Normal 60-165 The [facility] [place] Comment on above: Performed By: #### 5 6101, 83239, 56972, 51107, 31419, 98436, 79919 #### [facility] [address] [place] [address], [facility] PROTHROMBIN TIMEon 9 INR Coag (PPP) [Relative time] 1.27 {INR} High 0.91-1.16 [facility] Comment on above: Order Comment: No: [...] CHEST 1995;108:231S-246S. Performed By: #### 5 6101, 50837, 10244, 64258, 42100, 09367, 73637 #### [facility] [address] [place] [address], [facility] PT Coag (PPP) [Time] 16.0 s High 12.3-14.8 [facility] Comment on above: Order Comment: No: D o not add to previous draw Result Comment: ALL RESULTS MUST BE INTERPRETED WITH RESPECT TO BLOOD DRAWING ARTIFACT OR DILUTION ERROR OF ANTICOAGULANT AT THE TIME OF SAMPLING. Performed By: #### 5 6101, 40794, 78608, 82445, 81126, 99250, 11409 #### [facility] [address] UFH HEPARIN ASSAYon 10-28-20 19 UNFRACTIONATED HEPARIN <0.10 Critically low 0.30-0.70 [facility] Comment on above: Result Comment: Jo Ann roxaban and Apixaban will interfere with the anti Xa assay used to monitor UFH and LMWH. RESULTS CHECKED AND CALLED. ACCURATELY READ BACK BY BRANDON VAN RN AT 2150 ACTUAL UFH VALUE = 0.00 Performed By: #### 8 4511 #### [facility] [address] [facility] UNFRACTIONATED HEPARIN <0.10 Critically low 0.30-0.70 [facility] Comment on above: Result Comment: [place] roxaban and Apixaban will interfere with the anti Xa assay used to monitor UFH and LMWH. RESULTS CHECKED AND CALLED. ACCURATELY READ BACK BY MATTHEW NUR RN AT 1831 Performed By: #### 8 4511 #### [facility] [address] [facility] Vital Signs Date Time Vital Sign Value Performing Clinician Facility 08-03-2024 09:24 Body height 187.96 cm [facility] 08-03-2024 09:24040 Body mass index (BMI) [Ratio] 23.6 kg/m2 [facility] 08-03-2024 09:24 Body weight 83.46 kg [facility] 08-03-2024 09:24040 Diastolic blood pressure 84 mm[Hg] [facility] 08-03-2024 09:24040 Heart rate 91 /min [facility] 08-03-2024 09:24-0400 Respiratory rate 12 /min [facility] 08-03-2024 09:24-0400 Systolic blood pressure 145 mm[Hg] [facility] 04-15-2024 11:07-0400 Body height 187.96 cm [facility] 04-15-2024 11:07-0400 Body mass index (BMI) [Ratio] 23.8 kg/m2 [facility] 04-15-2024 11:07-0400 Body weight 83.97 kg [facility] 04-15-2024 11:07-0400 Diastolic blood pressure 68 mm[Hg] [facility] 04-15-2024 11:07-0400 Heart rate 91 /min [facility] 04-15-2024 11:07-0400 Respiratory rate 12 /min [facility] 04-15-2024 11:07-0400 Systolic blood pressure 127 mm[Hg] [facility] 02-13-2023 11:30-0400 Body height 187.96 cm Jersey Ball Other [employer] [facility] Other 02-13-2023 11:30-0400 Body mass index (BMI) [Ratio] 25.47 kg/m2 Jersey Ball Other [employer] [facility] Other 02-13-2023 11:30-0400 Body weight 89.99 kg Jersey Ball Other [employer] [facility] Other 02-13-2023 11:30-0400 Diastolic blood pressure 79 mm[Hg] Jersey Ball Other [employer] Other 02-13-2023 11:30-0400 Respiratory rate 12 /min Jersey Ball Other [employer] Other 02-13-2023 11:30-0400 Systolic blood pressure 125 mm[Hg] Jersey Ball Other [employer] Other 06-04-2022 13:59-0400 Blood Pressure Location Edison NILL [facility] 06-04-2022 13:59-0400 Diastolic blood pressure 84 mm[Hg] Edison NILL [facility] [place] 06-04-2022 13:59-0400 Heart rate 74 /min Edison NILL [facility] [place] 06-04-2022 13:59-0400 Respiratory rate 16 /min Edison NILL [facility] [place] 06-04-2022 13:59-0400 Systolic blood pressure 124 mm[Hg] Edison NILL [facility] [place] Encounters Encounter Date Encounter Type Care Provider Facility Start: 07-05-2025 End: 07-05-2025 ambulatory Edison SALEH Facility:[facility] Start: 07-05-2025 End: 07-05-2025 Patient encounter procedure Edison SALEH [facility] [place] Start: 08-29-2024 End: 08-29-[address] [facility] Work Phone: Start: 08-29-2024 End: 08-29-2024 Patient encounter procedure [facility] Work Phone: Start: 08-03-2024 End: 08-03-[address] [facility] Work Phone: Start: 08-03-2024 End: 08-03-2024 Patient encounter procedure [facility] Work Phone: Start: 04-15-2024 End: 04-15-[address] [facility] Work Phone: Start: 04-15-2024 End: 04-15-2024 Patient encounter procedure [facility] Work Phone: Start: 08-12-2023 End: 08-12-2023 ambulatory Stephy Benson Other [employer] Other Start: 08-12-2023 Nursing evaluation o f patient and report Stephywilfred Benson [facility] Start: 04-24-2023 End: 04-25-[address] JERSEY WHITTAKER Facility:[facility] Start: 04-16-2023 End: 04-17-[address] HANSEN LISTED REQUEST Facility:[facility] Start: 02-13-2023 End: 02-13-2023 ambulatory Jersey Whittaker Other [employer] Other Start: 02-13-2023 Office outpatient vi sit 15 minutes Jersey Whittaker [facility] Start: 07-23-2022 End: 07-23-[address] EDISON SALEH . Facility:[facility] Start: 07-22-2022 Encounter for preprocedural cardiovascular examination DR EDISON SALEH . [facility] Start: 07-22-2022 Encounter for preprocedural laboratory examination DR EDISON SALEH . [facility] Start: 07-18-2022 End: 07-19-[address] EDISON SALEH . Facility:[facility] Start: 07-18-2022 End: 07-19-2022 Encounter for preprocedural cardiovascular examination DR EDISON SALEH . Facility:[facility] Start: 06-04-2022 End: 06-04-2022 Patient encounter procedure Edison SALEH [facility] Start: 05-19-2022 End: 05-20-[address] JERSEY WHITTAKER Facility:[facility] Start: 04-14-2022 Adult health examination Karen Benson Other [employer] Other Start: 01-16-2020 End: 01-16-2020 Emergency department patient visit ALISON ARIZMENDI Facility:[facility] Start: 10-28-2019 End: 11-07-2019 Evaluation and management of inpatient PEBBLES Olya BUSCH Facility:[facility] Procedures Date Procedure Procedure Detail Performing Clinician Start: 04-16-[address] CHIRAG WHITTAKER Comment on above: Performed By: #### D ATBMP, DATPSA #### [facility] [address] [place] [address] [address] Mayra Zuluaga Start: 07-23-2022 Colonoscopy Edison YUE BAÑUELOS Start: 05-19-[address] CHIRAG WHITTAKER Comment on above: Performed By: #### D ATPSA #### [facility] [address] [place] [address] [address] Mayra Zuluaga Start: 11-07-2019 Antibody screen PEBBLES BUSCH Comment on above: Performed By: #### 1 0054 #### [facility] [address] Start: 11-01-2019 Antibody screen PEBBLES BUSCH Comment on above: Performed By: #### 5 6101, 33161, 12842, 81882, 48985, 93343, 74523 #### [facility] [address] [facility] [address] Start: 11-01-2019 TRANSFUSE NONAUT RED BLOOD [...] 03-16-2009 Colonoscopy Edison NI LL Depression screening Stephy Kelley Other Excision of cyst Edison Mendoza Comment on above: scrotum x 2 Exploratory laparotomy Kaiden SALEH Repair of ventral hernia Ansley SALEH Screening for malign ant neoplasm of prostate Stephy Benson Other Plan of Treatment Date Care Activity Detail Author [facility] Immunizations Immunization Date Immunization Notes Care Provider Fa cility 08-29-2024 influenza virus vaccine, unspecified formulation Edison SALEH [facility] [place] 08-12-2023 influenza virus vaccine, unspecified formulation [facility] 08-12-2023 influenza, high dose seasonal, preservative-free Stephy Benson Other [facility] Other 08-12-2023 Prevnar 20 Stephy Benson Other [facility] 08-18-2022 influenza virus vaccine, split virus (incl. purified surface antigen) Stephy Benson Other [facility] Other 08-18-2022 influenza virus vaccine, unspecified formulation [facility] 08-18-2022 influenza, injectabl e, quadrivalent, preservative free [facility] 08-18-2022 influenza, injectabl e, quadrivalent, contains preservative Stephy Benson Other [facility] Other 11-11-2021 COVID-19 Vaccine Pfi zer - Documentation Purposes Only Stephy Benson Other [facility] 08-20-2021 influenza virus vaccine, split virus (incl. purified surface antigen) Stephy Benson Other [facility] Other 08-20-2021 influenza virus vaccine, unspecified formulation [facility] 03-05-2021 COVID-19 Vaccine Pfi zer - Documentation Purposes Only Stephy Benson Other [facility] 02-11-2021 COVID-19 Vaccine Pfi zer - Documentation Purposes Only Stephy Benson Other [facility] 07-13-2020 influenza virus vaccine, split virus (incl. purified surface antigen) Stephy Benson Other [employer] Other 07-13-2020 influenza virus vaccine, unspecified formulation [facility] 03-05-2020 COVID-19 Vaccine Pfi zer - Documentation Purposes Only Stephy Benson Other [facility] 08-25-2019 influenza virus vaccine, split virus (incl. purified surface antigen) Stephy Benson Other [employer] Other 08-25-2019 influenza virus vaccine, unspecified formulation [facility] 08-08-2018 influenza virus vaccine, split virus (incl. purified surface antigen) Stephy Benson Other [employer] Other 08-08-2018 influenza virus vaccine, unspecified formulation [facility] 09-02-2017 tetanus and diphther ia toxoids, adsorbed, preservative free, for adult use (5 Lf of tetanus toxoid and 2 Lf of diphtheria toxoid) Stephy Benson Other [facility] 08-30-2016 tetanus and diphther ia toxoids, adsorbed, preservative free, for adult use (5 Lf of tetanus toxoid and 2 Lf of diphtheria toxoid) Stephy Benson Other [facility] 09-07-2013 tetanus and diphther ia toxoids, adsorbed, preservative free, for adult use (5 Lf of tetanus toxoid and 2 Lf of diphtheria toxoid) Stephy Benson Other [facility] Payers Date Payer Category Payer Medicare [id number] 2022 Private Health Insurance [id number] 2006 Private Health Insurance [id number] 1959 Medicare [id number] 1959 Private Health Insurance [id number] 1959 Self-pay 1960 Unknown [id number] [id number] 1960 Unknown [id number] 2.16.8 [id number] 1960 Unknown [id number] 2.16.84 [id number] 1960 Unknown [id number] 2.16.84 [id number] 1960 Unknown [id number] 2.16.84 [id number] 1960 Unknown [id number] 2.16.8 [id number] Unknown [id number] 2.16.84 [id number] Unknown [id number] 2.16.84 [id number] Social History Date Type Detail Facility Start: 06-04-2022 End: 07-05-2025 Tobacco smoking status Heavy tobacco smoker (finding) [facility] [place] Tobacco smoking status Never [facility] [place] Sex Assigned At Male Genera l Surgery [place] Start: 1960 Sex Assigned At Male F [facility] Sexual Orientation [facility] [place] Sex Male (finding) [facility] Functional Status Date Assessment Result Facility [...] SARS-CoV-2 (COVID-19) mRNA BNT-162b2 vax 02/11/2021 Recorded [facility] Comment on above: Result Comment: Elec tronically [...] to respiratory infections, vascular disease and cancers. [employer] Other 08-24-2022 NoteOPERATIVE NOTE OPERATION DATE: 07/23/2022 [...] in good condition. CC: Jersey Whittaker D.O.[facility] Hospital[facility]cozsmxs04-21-1408 NoteEXAMINATION: XR CHEST 2 V HISTORY: Nicotine [...] authenticated by: DRAGAN PORTILLO Date: 2022-07-19 07:25[facility] note No data available for this section [facility] [place] Evaluation noteNo InformationNort Schrodinger Other Evaluation note* Diagnosis Onset Date Resolution Status Benign prostatic hyperplasia with lower urinary tract symptoms acute Lumbar spondylosis acute Nicotine addiction acute Medicare annual wellness visit, initial noneactive Screening PSA (prostate specific antigen) noneactive [facility] Work Phone: Evaluation noteNo assessment information available [facility] Work Phone: Evaluation note* Diagnosis Onset Date Resolution Status Allergic contact dermatitis acute Pruritic rash acute [facility] Work Phone: History general Narrative - [...] TUBULAR ADENOMA Hospitalization History SEE SURGICAL HX [employer] Other Hospital Discharge instructions No data available for this section General Surgery [place] Progress note No data available for this [...] 2023 10:05am Hospital Course Note MR#: [id number] [facility] Pt. Name: Miguel Baron Admitted: 10/28/2019 [...] is a 59-year-old male who presented to [facility] as a transfer from an outside hospital. [...] section and content) DATE CREATED AUTHOR 12/08/2019 [facility] DATE CREATED AUTHOR AUTHOR'S ORGANIZ ATION 01/19/2020 [facility] DATE CREATED AUTHOR AUTHOR'S ORGANIZ ATION 06/20/2022 [facility] DATE CREATED AUTHOR AUTHOR'S ORGANIZ ATION 05/08/2023 [facility] DATE CREATED AUTHOR AUTHOR'S ORGANIZ ATION 07/25/2025 [facility] Care Team (unrecognized sect ion and content) [...] BASED ON THE PRIMARY CLINICAL RECORDS. [employer] [facility]. provides no warranty or guarantee of the accuracy or completeness of information in this document.
[2025-08-02 06:25] VITALS: BMI 22.5
[2025-08-02 10:02] VITALS: BP 119/93; PULSE 66; TEMP 36.4; O2SAT 97
[2025-08-02 10:17] VITALS: BP 123/70; PULSE 62; O2SAT 98
[2025-08-02 10:32] VITALS: BP 112/83; PULSE 61; O2SAT 99
== END 2025-08-02 10:40 | disposition home or self-care (01) ==
LOC: SURGOUT 06:19
PROVIDERS: PCP Internal Medicine; Visit Provider Surgery
PROC: (CPT 45380; principal; 2025-08-02 07:30)
DX: Z12.11 Encounter for screening for malignant neoplasm of colon (principal); D12.8 Benign neoplasm of rectum; Z86.0101 Personal history of adenomatous and serrated colon polyps; K57.30 Diverticulosis of large intestine without perforation or abscess without bleeding; K64.8 Other hemorrhoids; M47.816 Spondylosis without myelopathy or radiculopathy, lumbar region; N40.0 Benign prostatic hyperplasia without lower urinary tract symptoms; D68.59 Other primary thrombophilia; F17.210 Nicotine dependence, cigarettes, uncomplicated; I73.9 Peripheral vascular disease, unspecified
CPT/HCPCS: 45380; 88305; J0461; J2704